=== PATIENT | male | born 1965 | race Caucasian/White ===

== ENCOUNTER → 2020-11-05 11:45 | Outpatient (BNVA) | payer MEDICARE, MEDICAID, SELFPAY | PROVIDERS: Family Provider Nurse Practitioner Family; PCP Nurse Practitioner Family; Visit Provider Nurse Practitioner Family | DX: M32.9 Systemic lupus erythematosus, unspecified (principal); M79.7 Fibromyalgia; Z79.899 Other long term (current) drug therapy | CPT/HCPCS: 80053; 81003; 85025; 85651; 86140; 88184; 88185 ==

== ENCOUNTER 2020-11-12 13:36 | Outpatient (CLI) | payer MEDICARE, MEDICAID, SELFPAY ==
[2020-11-12 14:38] LABS: Basophils # 0.1 10^3/uL (0.0-0.1); Basophils % 0.5 %; Eosinophils # 0.3 10^3/uL (0.0-0.8); Eosinophils % 1.3 %; Hematocrit 32.7 % (42.0-52.0); Hemoglobin 10.6 g/dL (11.7-16.6); Lymphocytes # 1.7 10^3/uL (0.8-4.8); Mean Corpuscular HGB Conc 32.4 g/dL (30.0-36.0); Mean Corpuscular Hemoglobin 29.4 pg (28.0-34.0); Mean Corpuscular Volume 90.8 fl (80-94); Mean Platelet Volume 8.6 fL (7.4-10.4); Monocytes # 2.2 10^3/uL (0.2-0.9); Monocytes % 10.2 %; Neutrophils # 16.47 10^3/uL (1.8-7.7); Neutrophils % 77.1 %; Nucleated Red Blood Cells % 0.1 %; Platelet Count 646 10^3/cmm (130-400); Red Cell Distribution Width 17.1 % (12.1-15.1); White Blood Count 21.3 10^3/uL (4.0-10.0)
--- NOTE | 2020-11-12 16:15 | ONC CON_ITS ---
Dr. Ingram New Patient Note Patient: Arelis Hardin Unit #: [id number]: 1965 Dicatated By: Erin Ingram M.D.Date of Visit: Nov 12, 2020 Onc MED New Patient/Consult Referring Physician: Keith Hays NP History of Present Illness: Mr. Arelis Hardin, is a 54-year-old gentleman with a history of fibromyalgia, lupus/connective tissue disorder, COPD, chronic smoking was recently evaluated by his primary care physician and lab work-up done on November 13, 2020 showed white blood count 16.3 hemoglobin 10.9 g hematocrit 34.2 platelets 769,000 MCV 89.1, CMP within normal limit except creatinine 1.3, C-reactive protein 7.2, normal being less than 4.9 sed rate 56 normal being less than 10 mm/h and repeat CBC done on November 08, 2020 showed white blood count 18.2, hemoglobin 11.5 g hematocrit 36.6 platelets 823,000 with MCV 92.4, with a left shift., Patient was referred to hematology clinic for evaluation, patient is on prednisone 10 mg p.o. daily for the last 2 months for connective tissue disorder/fibromyalgia causing generalized muscle aches. As per patient in the past he has taken prednisone off and on. Patient said recently he recovered from pneumonia he was treated with antibiotics. Patient smoke about 2 packs a day, Denies alcohol use. His past medical history also significant for COPD, type 2 diabetes mellitus, history of bacterial sinusitis. Patient denies any fever chills but off and on drenching night sweats over the period of 1 month, no recurrent fever, 5 pound weight loss in the last couple of months due to poor appetite. Denies any peripheral lymphadenopathy denies any abdominal fullness. Denies any melena or hematochezia denies any hemoptysis or hematemesis denies any jaundice, denies any dysuria or hematuria, denies any nosebleed or gum bleed. As per patient last colonoscopy was done more than 8 years ago, never had EGD done. Past Medical History: Mr. Carpenter medical history consists of chronic obstructive pulmonary disease, fibromyalgia, heart disease, systemic lupus erythematosus, and type II diabetes. Past Surgical History: Mr. Carpenter surgical/procedural history consists of angioplasty with stent placement, cholecystectomy, and hernia repair. Medications: Gabapentin 1 Tablet (of 600 mg) Oral t.i.d., Hydroxychloroquine Sulfate 1 Tablet (of 200 mg) Oral daily, Lisinopril 1 Tablet (of 20 mg) Oral daily, Metoprolol Succinate ER 1 Tablet (of 25 mg) Tablet SR 24 HR Oral daily, predniSONE 1 Tablet (of 20 mg) Oral daily, Ticagrelor 1 Tablet (of 90 mg) Oral b.i.d. Allergies: Sulfa Antibiotics Social History: Mr. Hardin is . He is a daily smoker. He is a former drinker. Family History: There is no documented family history. Review Of Symptoms: Review of Systems is not available for this patient. Vital Signs: Most recent vitals are not available for this patient. Performance Status: 0 - Fully active, able to carry on all predisease activities without restrictions. (ECOG) Physical Examination: ENMT - No mouth sores, no thrush, no jaundice, No cervical lymphadenopathy, Respiratory - Poor air entry otherwise clear, Cardiovascular - Regular rate and rhythm of heart, Abdomen - Soft, bowel sounds present, Extremities - No visible edema. Lab/Imaging: Most recent lab results are not available for this patient. Impression: Leukocytosis with a left shift, most likely due to chronic prednisone which he takes for lupus/connective tissue disorder, in addition to that chronic heavy smoking, chronic inflammatory disorder, his sed rate and CRP is elevated on recent labs, subclinical infection or myeloproliferative disorder like CML, CMML cannot be ruled out. Thrombocytosis, essential versus reactive, most likely reactive probably secondary to chronic inflammatory process e.g. patient has elevated sed rate and CRP, or chronic blood loss, patient is anemic, primary bone marrow disorder like essential thrombocytosis or myeloproliferative disorder but less likely Anemia, etiology probably multifactorial including anemia of chronic disease/connective tissue disorder or combined iron/B12 deficiency or primary bone marrow disorder like MDS but less likely Lupus/connective tissue disorder, on prednisone 10 mg p.o. daily COPD/chronic smoking smoke about 2 packs a day Hypertension Type 2 diabetes mellitus Coronary artery disease status post angioplasty with stent done in 2014 Plan: Discussed with patient regarding his labs from today shows white blood count 21.3, with a left shift, hemoglobin 10.6 hematocrit 32.7, MCV 89, platelets 646,000 compared to 823,000 on November 08, 2020 Clinically, patient is doing reasonably well with chronic musculoskeletal pain and discomfort his lab work-up shows persistent leukocytosis with left shift, etiology probably multifactorial including chronic prednisone use and chronic smoking, chronic inflammation, underlying myeloproliferative disorder cannot be ruled out so we will consider FISH for BCR ABL, and whole blood flow cytometry As far as thrombocytosis concerned, again etiology could be multifactorial e.g. as a acute phase reactant, patient has elevated CRP/sed rate on could be due to underlying mild of proliferative disorder like a session thrombocytosis, will consider JAK2 mutation, ERENDIRA R/MPL mutation testing. And also obtain abdominal sonogram check spleen size. As far as anemia is concerned, probably multifactorial, will obtain iron studies, B12 folic acid, reticulocyte count and also check TSH, patient return to clinic in 2 weeks with CBC, will review above-mentioned work-up if it remained inconclusive and patient has persistent leukocytosis/thrombocytosis or anemia, will consider bone marrow evaluation. Patient was advised to quit smoking and was offered any assistance he may need Signed By: Erin Ingram M.D. <<Signature on File>>
[2020-11-12 17:12] LABS: Reticulocyte % 2.3 % (0.5-2.0)
[2020-11-12 17:57] LABS: Alanine Aminotransferase 26 U/L (0-41); Albumin Level 3.9 g/dL (3.5-5.2); Alkaline Phosphatase 55 IU/L (40-130); Anion Gap 20.6 (5-19); Aspartate Amino Transferase 17 U/L (0-40); Blood Urea Nitrogen 45 mg/dL (6-20); Calcium 9.7 mg/dL (8.5-10.5); Carbon Dioxide 19 mmol/L (22-29); Chloride 100 mmol/L (98-107); Ferritin 156 ng/mL (30-400); Globulin 2.7 g/dL (1.3-4.6); Glomerular Filtration Rate 45.4 mL/min (90-130); Glucose 87 mg/dL (65-115); Iron 35 ug/dL (59-158); Osmolality Calculated 289 mOsm/kg (285-295); Percent Saturation 11.1 % (20-50); Potassium 5.6 mmol/L (3.5-5.1); Sodium 134 mmol/L (136-145); Thyroid Stimulating Hormone 1.19 uIU/mL (0.27-4.20); Total Bilirubin 0.2 mg/dL (0.15-1.2); Total Iron Binding Capacity 315 mcg/dl; Total Protein 6.6 g/dL (6.6-8.7); Unsaturated Iron Binding 280 ug/dL (112-347); Vitamin B12 535 pg/mL (232-1245)
[2020-11-12 18:40] LABS: Folate Level > 20.0 ng/mL (4.5-32.2)
[2020-11-22 09:23] LABS: CALR Exon 9 Mutation NOT DETECTED (NOT DETECTED); CSF3R Exon 14/17 Mutation NOT DETECTED (NOT DETECTED); JAK2 Exon 12 Mutation NOT DETECTED (NOT DETECTED); JAK2 V617 Block Specimen ID NG; JAK2 V617 Clinical Indication NG; JAK2 V617 Mutation NOT DETECTED (NOT DETECTED); JAK2 V617 Specimen Source NG; MPL Exon 12 Mutation NOT DETECTED (NOT DETECTED)
[2020-12-03 13:14] LABS: Miscellaneous Test See Scanned Lab Rpt
[2020-12-12 09:58] LABS: Miscellaneous Test See Scanned Lab Rpt
== END 2020-11-12 13:37 | disposition home or self-care (01) ==
LOC: ONCMED 13:49
PROVIDERS: PCP Nurse Practitioner Family; Visit Provider Internal Medicine Hematology & Oncology
DX: D72.829 Elevated white blood cell count, unspecified (principal); D47.3 Essential (hemorrhagic) thrombocythemia; D64.9 Anemia, unspecified; M32.9 Systemic lupus erythematosus, unspecified; J44.9 Chronic obstructive pulmonary disease, unspecified; F17.210 Nicotine dependence, cigarettes, uncomplicated; I10 Essential (primary) hypertension; E11.9 Type 2 diabetes mellitus without complications; I25.10 Atherosclerotic heart disease of native coronary artery without angina pectoris; Z95.5 Presence of coronary angioplasty implant and graft; E61.1 Iron deficiency; Z86.010 Personal history of colon polyps; Z79.899 Other long term (current) drug therapy
CPT/HCPCS: 36415; 73090; 80053; 80500; 81219; 81270; 82607; 82728; 82746; 83540; 83550; 84443; 85025; 85045; 85651; 86140; 88184; 88185; 88271; 88275; 88374; 99205

== ENCOUNTER → 2020-11-13 16:14 | Outpatient (BNVA) | payer MEDICARE, MEDICAID, SELFPAY | PROVIDERS: PCP Nurse Practitioner Family; Visit Provider Family Medicine | DX: J44.9 Chronic obstructive pulmonary disease, unspecified (principal); M79.7 Fibromyalgia; J01.90 Acute sinusitis, unspecified; B96.89 Other specified bacterial agents as the cause of diseases classified elsewhere; J22 Unspecified acute lower respiratory infection; M32.9 Systemic lupus erythematosus, unspecified; I51.9 Heart disease, unspecified; Z95.820 Peripheral vascular angioplasty status with implants and grafts; E11.9 Type 2 diabetes mellitus without complications; R91.1 Solitary pulmonary nodule; I25.10 Atherosclerotic heart disease of native coronary artery without angina pectoris | CPT/HCPCS: 71046 ==

== ENCOUNTER 2020-11-20 13:46 | Outpatient (CLI) | payer MEDICARE, MEDICAID, SELFPAY ==
--- NOTE | 2020-11-20 14:15 | CT_ITS ---
WS: [id number] CT scan of the chest without IV contrast, additional two-dimensional coronal and sagittal reconstruct ion was performed. 11/20/2020 Clinical Data: R93.89 - Abnormal findings on diagnostic imaging of other... Comparison: CTA chest, 03/03/2016. DLP: 870.[address] scans at [facility] use at least one of these dose optimization techniques: automated e xposure control; mA and/or kV adjustment per patient size (includes targeted exams where dose is matc hed to clinical indication); or iterative reconstruction. Findings: There is cavitary change bilaterally with increase in parenchymal density throughout the upper lobes. There is a diffuse groundglass appearance of the lungs throughout the upper, middle and lower lobes. No nodules, masses or effusions are seen. No definite pneumonia is noted. The heart size is normal wi th no pericardial effusion. Coronary artery calcification is present. The pulmonary arterial system a nd thoracic aorta demonstrate no abnormalities or dilatations. There is no axillary or significant me diastinal adenopathy. The upper abdomen demonstrates polycystic disease of the kidneys with probable polycystic disease of the liver. There are clips in the gallbladder fossa from a cholecystectomy. CT/CT chest wo con [id number] Impression: 1. Marked cavitary change and increase in parenchymal density throughout the up per lobes which may represent chronic inflammatory change and worsening chronic obstructive pulmonary disease. 2. Diffuse groundglass appearance throughout the lung parenchyma parenchyma whi ch may represent chronic pulmonary infection. 3. Polycystic disease of the kidneys and liver.
== END 2020-11-20 13:47 | disposition home or self-care (01) ==
PROVIDERS: PCP Nurse Practitioner Family; Visit Provider Nurse Practitioner Family
DX: R93.89 Abnormal findings on diagnostic imaging of other specified body structures (principal); Q61.3 Polycystic kidney, unspecified; Q44.6 Cystic disease of liver; J44.9 Chronic obstructive pulmonary disease, unspecified
CPT/HCPCS: 71250

== ENCOUNTER 2020-11-21 07:15 | Outpatient (CLI) | payer MEDICARE, MEDICAID, SELFPAY ==
--- NOTE | 2020-11-21 07:21 | US_ITS ---
WS: [id number] Complete ABDOMINAL ULTRASOUND HISTORY: LEUKOCYTOSIS; SPECIAL ATTENTION TO SPLEEN COMPARISON: 04/19/2009. Liver: 18.0 cm in length. Liver is moderately enlarged. No mass or bile duct dilatation. Surface of t he liver is slightly irregular suggesting early changes of cirrhosis may be present. There is a small cyst in the central LEFT lobe measuring 2.0 x 1.6 x 1.3 cm. Gallbladder: Prior cholecystectomy. Pancreas: Tail is obscured. Body and head are normal. CBD: 0.8 cm. Right kidney: 18.1 cm x 9.9 cm x 7.7 cm. Enlarged RIGHT kidney with multiple cysts. Patient has know n polycystic kidney disease. No solid masses or obstruction identified. Poor differentiation of the c ortical medullary junction. Left kidney: 17.7 cm x 7.9 cm x 7.8 cm. Enlarged kidney with multiple cysts. No solid mass or obstru ction. Poor cortical medullary differentiation. Spleen: Spleen is normal size measuring 10.7 cm in length. Abdominal aorta and IVC are within normal limits. No ascites. US/US abdomen complete* [id number] IMPRESSION: 1. Status post cholecystectomy. 2. Polycystic kidney disease. 3. Normal size spleen. 4. LEFT lobe hepatic cyst.
== END 2020-11-21 07:16 | disposition home or self-care (01) ==
LOC: RAD 07:17
PROVIDERS: PCP Nurse Practitioner Family; Visit Provider Internal Medicine Hematology & Oncology
DX: D72.829 Elevated white blood cell count, unspecified (principal); Z90.49 Acquired absence of other specified parts of digestive tract; Q61.3 Polycystic kidney, unspecified; K76.89 Other specified diseases of liver
CPT/HCPCS: 76700

== ENCOUNTER 2020-11-22 10:37 | Outpatient (CLI) | payer MEDICARE, MEDICAID, SELFPAY ==
[2020-11-22 11:45] LABS: Creatinine Urine, Random 95 mg/dL (39-259); Microalbumin Random Urine 13 ug/dL (0-20)
[2020-11-22 11:46] LABS: Microalbum Creatinine Ratio Ur 137 mg/dL (0-20)
[2020-11-22 11:51] LABS: Alanine Aminotransferase 24 U/L (0-41); Albumin Level 4.1 g/dL (3.5-5.2); Alkaline Phosphatase 62 IU/L (40-130); Anion Gap 16.7 (5-19); Aspartate Amino Transferase 20 U/L (0-40); Blood Urea Nitrogen 30 mg/dL (6-20); Carbon Dioxide 23 mmol/L (22-29); Chloride 102 mmol/L (98-107); Globulin 2.9 g/dL (1.3-4.6); Glomerular Filtration Rate 45.4 mL/min (90-130); Glucose 62 mg/dL (65-115); Osmolality Calculated 288 mOsm/kg (285-295); Potassium 4.7 mmol/L (3.5-5.1); Sodium 137 mmol/L (136-145); Total Bilirubin 0.2 mg/dL (0.15-1.2)
[2020-11-26 13:38] LABS: Quantiferon Mitogen 8.28 IU/mL; Quantiferon Nil 0.03 IU/mL; Quantiferon TB Gold NEGATIVE (NEGATIVE)
== END 2020-11-22 10:38 | disposition home or self-care (01) ==
PROVIDERS: PCP Nurse Practitioner Family; Visit Provider Nurse Practitioner Family
DX: R91.8 Other nonspecific abnormal finding of lung field (principal); R94.4 Abnormal results of kidney function studies
CPT/HCPCS: 36415; 80053; 82044; 86480

== ENCOUNTER 2020-11-22 12:19 | Outpatient (CLI) | payer MEDICARE, MEDICAID, SELFPAY ==
--- NOTE | 2020-11-22 16:53 | ONC FU_ITS ---
Dr. Ingram follow up note Patient: Arelis Hardin Unit #: [id number]: 1965 Dicatated By: Erin Ingram M.D.Date of Visit:Nov 22, 2020 Onc Med Follow-up/Prog Note History of Present Illness: Mr. Arelis Hardin, is a 54-year-old gentleman with a history of fibromyalgia, lupus/connective tissue disorder, COPD, chronic smoking was recently evaluated by his primary care physician and lab work-up done on November 13, 2020 showed white blood count 16.3 hemoglobin 10.9 g hematocrit 34.2 platelets 769,000 MCV 89.1, CMP within normal limit except creatinine 1.3, C-reactive protein 7.2, normal being less than 4.9 sed rate 56 normal being less than 10 mm/h and repeat CBC done on November 08, 2020 showed white blood count 18.2, hemoglobin 11.5 g hematocrit 36.6 platelets 823,000 with MCV 92.4, with a left shift., Patient was referred to hematology clinic for evaluation, patient is on prednisone 10 mg p.o. daily for the last 2 months for connective tissue disorder/fibromyalgia causing generalized muscle aches. As per patient in the past he has taken prednisone off and on. Patient said recently he recovered from pneumonia he was treated with antibiotics. Patient smoke about 2 packs a day, Denies alcohol use. His past medical history also significant for COPD, type 2 diabetes mellitus, history of bacterial sinusitis. Patient denies any fever chills but off and on drenching night sweats over the period of 1 month, no recurrent fever, 5 pound weight loss in the last couple of months due to poor appetite. Denies any peripheral lymphadenopathy denies any abdominal fullness. Denies any melena or hematochezia denies any hemoptysis or hematemesis denies any jaundice, denies any dysuria or hematuria, denies any nosebleed or gum bleed. As per patient last colonoscopy was done more than 8 years ago, never had EGD done. Reticulocyte count 2.3% iron saturation 11.1% iron 35, both are low, TIBC 315, ferritin 156 B12 535, creatinine 1.6, TSH 1.19, molecular studies for myeloproliferative disorders including CA LR exon 9, JAK2 mutation, exon 12 mutation, exon 10 mutation, CSF 3R EX 14/,Done on November 12, 2020 came back negative Also BCR/ABL not detected, whole blood flow cytometry showed no aberrant myeloid or lymphoid population detected Abdominal sonogram Done on November 21, 2020 shows spleen is normal size Came for follow-up, denies any specific complaints, no fever chills, no nausea or vomiting, no diarrhea or constipation, no melena or hematochezia, no hemoptysis or hematemesis, no abdominal pain or fullness, no peripheral lymphadenopathy, no night sweats, on prednisone 10 mg p.o. daily Medications: Gabapentin 1 Tablet (of 600 mg) Oral t.i.d., Hydroxychloroquine Sulfate 1 Tablet (of 200 mg) Oral daily, Lisinopril 1 Tablet (of 20 mg) Oral daily, Metoprolol Succinate ER 1 Tablet (of 25 mg) Tablet SR 24 HR Oral daily, predniSONE 1 Tablet (of 10 mg) Oral daily, Ticagrelor 1 Tablet (of 90 mg) Oral b.i.d. Allergies: Sulfa Antibiotics Review of Systems: Review of Systems is not available for this patient. Vital Signs: Performed on Nov 22, 2020 12:35 Height - 72 in Weight - 172 lbs (HIGH) BSA - 2.00 sq.m BMI - 23.33 Temperature - 99.8 F (HIGH) Pulse - 87 /min Respiration - 18 /min BP - 124/76 mm(hg) O2 Sat - 98 % Pain - 7 Fatigue - 10 Performance Status: 0 - Fully active, able to carry on all predisease activities without restrictions. (ECOG) Physical Examination: ENMT - No mouth sores, no thrush, no jaundice, Respiratory - Lungs are clear to auscultation, Cardiovascular - Regular rate and rhythm of heart, Abdomen - Soft, bowel sounds present, Extremities - No visible edema. Lab/Imaging: Most recent lab results are not available for this patient. Impression: Leukocytosis with a left shift, most likely due to chronic prednisone which he takes for lupus/connective tissue disorder, in addition to that chronic heavy smoking, chronic inflammatory disorder, his sed rate and CRP is elevated on recent labs, subclinical infection or myeloproliferative disorder like CML, CMML Unlikely as myeloproliferative work-up came back negative Thrombocytosis, essential versus reactive, most likely reactive probably secondary to chronic inflammatory process e.g. patient has elevated sed rate and CRP, or chronic blood loss, patient is anemic, primary bone marrow disorder like essential thrombocytosis or myeloproliferative disorder but less likely molecular studies for myeloproliferative disorders including CA LR exon 9, JAK2 mutation, exon 12 mutation, exon 10 mutation, CSF 3R EX ,Done on November 12, 2020 came back negative Also BCR/ABL not detected, whole blood flow cytometry showed no aberrant myeloid or lymphoid population detected Abdominal sonogram Done on November 21, 2020 shows spleen is normal size Anemia, etiology probably multifactorial including anemia of chronic disease/connective tissue disorder or combined iron/B12 deficiency or primary bone marrow disorder like MDS but less likely Reticulocyte count 2.3% iron saturation 11.1% iron 35, both are low, TIBC 315, ferritin 156 B12 535, creatinine 1.6, TSH 1.19, Lupus/connective tissue disorder, on prednisone 10 mg p.o. daily COPD/chronic smoking smoke about 2 packs a day Hypertension Type 2 diabetes mellitus Coronary artery disease status post angioplasty with stent done in 2014 Plan: Discussed with patient regarding his labs white blood count 21.3, hemoglobin 10.6 g hematocrit 32.7 platelets 646,000 CMP within normal limit except creatinine 1.6 potassium 5.6, iron 11.1% ferritin 156, iron 35, TIBC 315, B12 535, TSH 1.19 and work-up for myeloproliferative disorder came back negative, abdominal sonogram shows no splenomegaly Clinically, patient doing well with no new signs symptoms, his follow-up labs shows persistent leukocytosis most likely reactive probably due to chronic steroid use and chronic inflammation as extensive work-up done for myeloproliferative disorder including JAK2 mutation, leukemia/lymphoma panel, MPL, ERENDIRA R, mutation all came back negative whole blood flow cytometry showed no abnormal cell population, CML panel came back negative. So no further work-up for chronic leukocytosis which is most likely due to chronic steroid use as well as chronic inflammation so we will continue to monitor and if progressive, may repeat myeloproliferative panel as early changes due to myeloproliferative disorder may not be detected this time. As far as thrombocytosis concerned probably multifactorial including chronic inflammation and now with iron deficiency, will consider oral iron 2 tablets p.o. daily and also patient has history of precancerous colon polyp removal about 8 years ago, so we will refer him to gastroenterology for GI evaluation to rule out GI pathology. Patient will return to clinic in 1 month with CBC and iron studies, if there is no improvement may consider parenteral iron. Signed By: Erin Ingram M.D. <<Signature on File>>
== END 2020-11-22 12:20 | disposition home or self-care (01) ==
PROVIDERS: PCP Nurse Practitioner Family; Visit Provider Internal Medicine Hematology & Oncology
DX: D72.829 Elevated white blood cell count, unspecified (principal); D75.839 Thrombocytosis, unspecified; D64.9 Anemia, unspecified; M32.9 Systemic lupus erythematosus, unspecified; J44.9 Chronic obstructive pulmonary disease, unspecified; F17.210 Nicotine dependence, cigarettes, uncomplicated; I10 Essential (primary) hypertension; E11.9 Type 2 diabetes mellitus without complications; I25.10 Atherosclerotic heart disease of native coronary artery without angina pectoris; Z95.5 Presence of coronary angioplasty implant and graft; E61.1 Iron deficiency; Z86.010 Personal history of colon polyps; Z79.899 Other long term (current) drug therapy
CPT/HCPCS: 99214

== ENCOUNTER 2020-11-28 16:17 | Outpatient (CLI) | payer MEDICARE, MEDICAID, SELFPAY ==
--- NOTE | 2020-11-28 16:30 | USCV_ITS ---
Arelis Hardin Age: 54 Gender: M : 1965 Exam Date: 11/28/2020 16:22 Ordering Phys: Sarah Kay MD ([email or web address]) Technologist: Exam Location: [facility] [place] Indication: CHEST PAIN BP: 120 / 70 HR: 82 Rhythm: Sinus Technical Quality: Good MEASUREMENTS (Male / Female) Normal Values 2D ECHO LV Diastolic Diameter PLAX 4.9 cm 4.2 - 5.9 / 3.9 - 5.3 cm LV Systolic Diameter PLAX 2.6 cm IVS Diastolic Thickness 0.9 cm 0.6 - 1.0 / 0.6 - 0.9 cm IVS Systolic Thickness 1.4 cm LVPW Diastolic Thickness 1.1 cm 0.6 - 1.0 / 0.6 - 0.9 cm LVPW Systolic Thickness 1.1 cm LVOT Diameter 2.0 cm LV Ejection Fraction 2D Teich 74.0 % LV Ejection Fraction MOD 2C 64.7 % LV Ejection Fraction 2C AL 64.0 % LA Diameter 3.3 cm LA Width 3.6 cm LA Height 5.1 cm RA Width 3.2 cm RA Height 4.6 cm Aorta at Sinotubular Diameter 2.8 cm M-MODE LV Diastolic Diameter MM 6.1 cm 4.2 - 5.9 / 3.9 - 5.3 cm LV Systolic Diameter MM 4.4 cm LV Ejection Fraction MM Teich 53.4 % IVS Diastolic Thickness MM 1.0 cm 0.6 - 1.0 / 0.6 - 0.9 cm IVS Systolic Thickness MM 1.3 cm LVPW Diastolic Thickness MM 1.1 cm 0.6 - 1.0 / 0.6 - 0.9 cm LVPW Systolic Thickness MM 2.0 cm RV Diastolic Diameter MM 0.8 cm MV E Point Septal Separation 0.9 cm DOPPLER AV Peak Velocity 145.0 cm/s LVOT Peak Velocity 103.0 cm/s AV Area Cont Eq vti 2.5 cm squared AV Area Cont Eq pk 2.3 cm squared MV Area PHT 5.0 cm squared Mitral E to A Ratio 1.1 MV E' Velocity 53.0 cm/s Mitral E to MV E' Ratio 9.3 Mitral E to LV E' Lateral Ratio 8.0 Mitral E to LV E' Septal Ratio 11.4 TR Peak Velocity 143.0 cm/s TR Peak Gradient 8.2 mmHg TV Peak E Velocity 88.0 cm/s Right Atrial Pressure 3.0 mmHg Pulmonary Artery Systolic Pressu 11.2 mmHg FINDINGS Left Ventricle Mild hypokinesia of the apical inferolateral wall segment.. Lead to hypokinesia of the septum. Overall left ventricular ejection fraction around 50 to 55% Right Ventricle The right ventricle is normal in size and function. Right Atrium The right atrium is normal in size. Left Atrium The left atrium is normal in size. Mitral Valve Mild mitral valve regurgitation. Aortic Valve No gross abnormalities noted Tricuspid Valve No gross abnormalities noted Pulmonic Valve Pulmonic valve not well visualized. Pericardium Normal pericardium without effusion. Aorta Normal ascending aorta dimension. CONCLUSIONS 1. Normal LV size with borderline low ejection fraction 50 to 55%. 2. Wall motion abnormalities as mentioned above. 3. Mild mitral valve regurgitation. 4. No intracardiac masses 5. No pericardial effusion Compared to the study from 01/01/2015, the wall motion of abnormality is noted in a different artery territory at this time. Dr Sarah Kay MD FAC (Electronically Signed) Final Date: 28 November 2020 17:34 S
== END 2020-11-28 16:18 | disposition home or self-care (01) ==
PROVIDERS: PCP Nurse Practitioner Family; Visit Provider Internal Medicine Cardiovascular Disease
DX: R06.00 Dyspnea, unspecified (principal); I25.118 Atherosclerotic heart disease of native coronary artery with other forms of angina pectoris; I34.0 Nonrheumatic mitral (valve) insufficiency; J18.9 Pneumonia, unspecified organism; J98.4 Other disorders of lung; I31.9 Disease of pericardium, unspecified
CPT/HCPCS: 80048; 83880; 84484; 85025; 93306

== ENCOUNTER 2020-11-29 12:52 | Outpatient (CLI) | payer MEDICARE, MEDICAID, SELFPAY ==
[2020-11-29 13:58] LABS: Lactate Dehydrogenase 169 U/L (135-225)
[2020-12-03 11:57] LABS: Quantiferon Mitogen 0.29 IU/mL; Quantiferon Nil 0.01 IU/mL; Quantiferon TB Gold INDETERMINATE (NEGATIVE)
== END 2020-11-29 12:53 | disposition home or self-care (01) ==
LOC: LAB 12:59
PROVIDERS: PCP Nurse Practitioner Family; Visit Provider Internal Medicine Critical Care Medicine
DX: J98.4 Other disorders of lung (principal)
CPT/HCPCS: 36415; 83615; 86480; 86698

== ENCOUNTER → 2020-12-10 09:58 | Outpatient (BNVA) | payer MEDICARE, MEDICAID, SELFPAY | PROVIDERS: PCP Nurse Practitioner Family; Visit Provider Internal Medicine Critical Care Medicine | DX: Z20.822 Contact with and (suspected) exposure to COVID-19 (principal); J18.9 Pneumonia, unspecified organism | CPT/HCPCS: 86635; 87635 ==

== ENCOUNTER 2020-12-13 11:21 | Outpatient (CLI) | payer MEDICARE, MEDICAID, SELFPAY ==
--- NOTE | 2020-12-13 13:04 | PFTS_ITS ---
Date of Study:12/13/20 Date of Dictation: 12/14/2020 MECHANICS: Postbronchodilator forced vital capacity (FVC) is reduced. Postbronchodilator forced expiratory volume in one second (FEV1) is severely reduced 36%. FEV1/FVC is reduced. There is no significant response to bronchodilators. FLOW VOLUME LOOP: Sloping of expiratory limb suggestive of airway obstruction . LUNG VOLUMES: Total lung capacity (TLC) is normal. Residual volume (RV) is normal. DIFFUSING CAPACITY FOR CARBON MONOXIDE: Moderately reduced. . INTERPRETATION: The pulmonary function tests are consistent with severe obstructive ventilatory disease with no significant bronchodilator response. Lung volumes are normal. There is moderate gas moderate transfer defect. Clinical correlation recommended. [facility]
== END 2020-12-13 11:22 | disposition home or self-care (01) ==
LOC: RT 11:25
PROVIDERS: PCP Nurse Practitioner Family; Visit Provider Internal Medicine Critical Care Medicine
DX: J44.9 Chronic obstructive pulmonary disease, unspecified (principal)
CPT/HCPCS: 94060; 94726; 94729

== ENCOUNTER → 2020-12-17 11:53 | Outpatient (BNVA) | payer MEDICARE, MEDICAID, SELFPAY | PROVIDERS: PCP Nurse Practitioner Family; Referring Provider Internal Medicine Cardiovascular Disease; Visit Provider Internal Medicine Cardiovascular Disease | DX: Z01.812 Encounter for preprocedural laboratory examination (principal); E87.1 Hypo-osmolality and hyponatremia; Z20.822 Contact with and (suspected) exposure to COVID-19; I25.10 Atherosclerotic heart disease of native coronary artery without angina pectoris; R79.89 Other specified abnormal findings of blood chemistry | CPT/HCPCS: 80048; 85025; 85610; 86850; 86900; 87635 ==

== ENCOUNTER 2020-12-20 09:59 | Observation (INO) | payer MEDICARE, MEDICAID, SELFPAY ==
[2020-12-20] VITALS (29 sets, daily range): BP systolic 93–160; BP diastolic 55–99; PULSE 76–122; RESP 7–28; TEMP 37.2; O2SAT 89–99; BMI 23.8; BMI 24.0
--- NOTE | 2020-12-20 07:30 | XACV_ITS ---
Ht: 183 cm Wt: 80 kg BSA: 2.02 m2 Gender: Male : 1965 Any Known Allergies: Other Exam Priority: Routine Procedure(s): Procedure Description: Diagnostic procedure Procedure Description: Left Heart Catheterization Procedure Description: Coronary Angiography Rahul HOWELL; Diagnostic Cath Status: Elective Diagnostic Findings * Left main is a medium caliber vessel with no significant stenotic lesions. * The left hand is any arteries a medium caliber vessel which appears to be tortuous proximally. Mild diffuse intimal irregularities were noted in the vessel. Moderate calcification was noted in the proximal segment of the artery. The first diagonal branch was found to have around 50% ostial narrowing. * The circumflex artery is a small to moderate medium caliber nondominant vessel which appears to give off two obtuse marginal branches. The first obtuse marginal branch was found to have around 50% ostial narrowing. At the takeoff of this vessel, the circumflex proper was found to have around 50% diffuse narrowing. No other significant stenotic lesions were noted.. * The right coronary artery is a medium caliber dominant vessel. The proximal segment of the artery was found to have a long stented area which was widely patent. The mid segment of the artery was found to have mild diffuse intimal irregularities. No significant stenotic lesions were noted.. Conclusions 1. 55-year-old white male with a history of coronary disease, previous myocardial infarction, presenting with increasing episodes of chest pain, suggestive of unstable angina. Echocardiogram revealed new wall motion normalities in the distribution of the left circumflex artery. In view of the patient's presenting symptoms and the history, in order to further evaluate his coronary status, a cardiac catheterization was recommended. Patient is known to have high blood pressure, dyslipidemia, type 2 diabetes and polycystic kidney disease. 2. Patient underwent left heart catheterization with left and right coronary angiogram today. The coronary angiogram revealed patent stented segment of the right coronary artery. Moderate disease in the mid circumflex artery including the ostium of the first obtuse marginal branch. Mild diffuse disease in the other vessels. Normal LVEDP. Recommendations * Continue current medical management and risk factor modification. Diagnostic RX Recommendation: medical therapy and/or counseling LV EDP: 5 mmHg Left Ventriculography Findings: * LV gram was not performed because of the chronic kidney disease. Pressures Phase:Rest AO : 103 / 62 ( 83 ) @ 7:12:00 AM 108 / 58 ( 79 ) @ 7:23:00 AM 108 / 58 ( 79 ) @ 7:23:00 AM LV : 107 / -10 / 5 @ 7:22:00 AM 109 / -10 / 5 @ 7:23:00 AM Valves Phase:DefaultPhase AV : 0.0 @ 9:58:44 AM AV Mean Gradient: 0.0 @ 9:58:44 AM 0.0 @ 9:58:44 AM Clinical Evaluation EBL: 5mL-10mL Procedural Details Procedure Consent Obtained. Current Diagnosis : Chest Pain. Pre-Procedure Time Out. Identified patient by full name and date of as verbalized by the patient/guarantor. Does the consent match the physician's order: Yes. Accurate & Complete Informed Consent: Yes. Inpatient/Outpatient History & Physical on Chart: Yes. If H&P is completed, is and addenduem needed: No; If yes, is the addendum complete: N/A. Visualize and Verify Site with Patient/Guarantor: N/A. Relevant Radiology Images available: Yes. Pre-op teaching completed and patient verbalized understanding. The risks, benefits, and alternatives of sedation and/or procedure were discussed by physician. The patient agrees to continue. Procedure started. [facility] Clinical Fraility Score: 3: Managing Well. Air Conditioning Technician Indications: Worsening Angina. Chest Pain Symptom Assessment: Typical Angina Symptoms. Current diagnosis: Chest Pain. PERRLA. Strong, equal hand it project lead bilaterally. Lungs clear x 5 lobes. IV Site on Arrival: 20 gauge in the right anticubital. IV Fluids: 0.9% NaCl at KVO. 0 mL infused prior to supervisor laboratory. Pre Procedural Pulses: bilateral dorsalis pedis was 2+. Pre Procedural Pulses: bilateral posterior tibial was 2+. Pre Procedural Pulses: right radial was 2+. Oxygen started at 2liters/min via nasal canula. bilateral groins was prepped with chloroprep then draped in the usual sterile fashion. Physician notified. Baseline sample Acquired. HR: 94 BPM. Physician arrived. Physician scrubbed in. Immediate Pre-Procedure Time Out. Correct Patient: Yes; Correct Procedure: Yes; Correct Site: Yes; Correct Patient Position: Yes; Correct Supplies: Yes; Dried Flammable Prep: Yes; Blood Products Available: N/A;. Lidocaine 1% infiltrated to the right groin. Arterial access obtained with micropuncture set. A 5 macedonian JL4 catheter in over wire. Multiple views taken of left coronary artery. Catheter removed over the standard wire. A 5 macedonian JR4 catheter in over wire. Multiple views taken of right coronary artery. Catheter removed over the exchange wire. A 5 macedonian Angled Pig catheter in over wire. EDP Sample taken: LV 107/-11,5; HR: 83 BPM; SpO2: 96%. Pullback taken: LV 109/-10,5; AO 108/58(79); Mean: 0mmHg, Peak to Peak: 0mmHg, SEP: 10sec/min; HR: 90 BPM; SpO2: 100%. Catheter removed over the exchange wire. Physician scrubbed out. Physician review of cine films. Side port of sheath attached to Normal Saline flush at KVO to maintain patency. Dr. Simental called to review films. Dr. Simental arrived. Sheath(s) sutured into position with 2-0 silk and sterile 4x4's and Op-site applied over the site. No oozing or signs and symptoms of hematoma noted. A Suture was successful obtaining hemostatsis at the Right Femoral artery insertion site. PERRLA. Strong, equal hand it project lead bilaterally. No VTE prophylaxis required. Medication's Wasted: Lidocaine 1% = 4 mL. Medication's Wasted: Other = Fentanyl 50 mg. Medication's Wasted: Heparin = 3000 units. Total IV fluids: 500 mL. Contrast type used: Visipaque 320 mgI/mL, 500 mL bottle. Complications: None. Estimated blood loss: 5mL-10mL. Procedure completed. Patient transferred by bed to ICU. Vital chart was stopped. Access Site Site: Right Femoral artery Sheath Size: 5 Fr Hemostasis Method: Suture Hemostasis Success: Successful Procedure Medications Start: 8:56 AM Stop: 8:56 AM Medication: Versed Amount: 1 mg Route: I.V. Start: 8:56 AM Stop: 8:56 AM Medication: Fentanyl Amount: 50 mcg Route: I.V. Start: 9:04 AM Stop: 9:04 AM Medication: 0.9% Saline Amount: 250 ml Route: I.V. bolus Start: 9:05 AM Stop: 9:05 AM Medication: Versed Amount: 1 mg Route: I.V. Start: 9:09 AM Stop: 9:09 AM Medication: Heparin Amount: 1500 units Route: I.V. Start: 9:23 AM Stop: 9:23 AM Medication: 0.9% Saline Amount: 250 ml Route: I.V. bolus I, the attending physician, have reviewed and verified all procedure medications. Yes, all medications given per verbal order History/Risk Factors Hypertension: Yes Dyslipidemia: Yes Peripheral Arterial Disease (PAD): No Myocardial Infarction (SD): No Obesity: No Renal Disease: No Prior Interventions PCI: Yes CABG: No Valve Surgery: No Date of PCI: 01/01/2015 Report Signatures Finalized by Dr Sarah Kay MD [facility] on 12/20/2020 05:58 PM
[2020-12-20] MEDS: diphenhydrAMINE 50 mg Capsule PO (08:24)
--- NOTE | 2020-12-20 08:56 | W.PM.OPSUD ---
Surgery/Procedure H&P Update DATE OF PROCEDURE: December 20, 2020 DATE H&P PERFORMED: 11/28/20 H&P UPDATE INFORMATION: I have reviewed H&P completed within last 30 days, I have examined patient prior to procedure, No changes to prior documentation, Changes to prior documentation as noted here and H&P to be scanned into chart PREOP DIAGNOSIS: ASHD PRIMARY INDICATION FOR PROCEDURE: Unstable angina PLANNED PROCEDURE: Operation Date: 12/20/20 08:30 Proposed Procedures p Cardiac Catheterization(Left) - Sarah Kay MD PATIENT REASSESSED PRIOR TO SEDATION, WITH NO CHANGE NOTED: Yes PHYSICAL EXAM: alert, oriented x 3, clear to auscultation bilaterally, regular rate & rhythm and operative site marked AIRWAY EVAL/ANESTHESIA PLAN: normal airway, see other exam findings, ASA II, ASA III, Monitored Anesthesia, Local Anesthesia, Risks, benefits & alternatives of sedation and/or procedure discussed and Patient agrees to continue as planned
--- NOTE | 2020-12-20 09:43 | P.HP_ITS ---
Providers/Chief Complaint Admitting Physician: KRISTA Kay Primary Care Provider: VAISHALI Alcantara Chief Complaint: [id number] [id number] History of Present Illness Arelis Hardin is a 55 year old male with a history of atherosclerotic non- ST relation myocardial infarction, status post symptoms suggestive of unstable angina. He had PCI of the right coronary artery in December 2014. He had a moderate disease in the circumflex artery at that time. Apparently he has been doing okay with no recurrence of chest pain apparently recently when he started having chest pains. His symptoms were suggestive of an accelerated angina. His echocardiogram revealed hypokinesis in the inferolateral wall region, suggestive of ischemia in the distribution of the left circumflex artery. In view of his accelerated angina and the abnormal echocardiogram findings, in order to further evaluate his coronary status, a cardiac catheterization was recommended. Patient underwent left heart catheterization with a left and right coronary angiogram today. Patient is known to have chronic kidney disease, from the polycystic kidney. His creatinine was found to be 1.6. He is admitted to hospital for IV hydration and close monitoring. He tolerated the procedure well and there were no complications. Review of Systems Narrative: CONSTITUTIONAL: No fever or chills. [] EYES: No blurring of vision or other visual disturbances lately. [] ENT: No hoarseness of voice, auditory disturbances or sore throat. [] CARDIOVASCULAR: As mentioned above. [] RESPIRATORY: Patient has been having cough and shortness of breath and is being treated for pneumonia. The respiratory symptoms been going on for the last more than a month. He has a chronically elevated white cell count. He also has a questionable history of systemic lupus erythematosus. He is being followed up by the pulmonology. GASTROINTESTINAL: No hematemesis or melena. [] GENITOURINARY: No dysuria or hematuria. [] INTEGUMENTARY: No skin rashes or history of skin cancer. [] NEURO: No transient ischemic attacks or amaurosis. [] PSYCHIATRIC: No history of psychosis or major depression. [] HEMATOLOGIC: No bleeding disorders or significant anemia. [] ENDOCRINE: No history of polyuria or polydipsia. [] MUSCULOSKELETAL: No recent joint pain or swelling. [] ALLERGY/IMMUNOLOGY: As mentioned above. [] Medications/Allergies Home Medications Medication Instructions Recorded Confirmed Last Taken Type metoprolol succinate 50 mg 50 mg PO DAILY 10/24/20 12/20/2021 History tablet,extended release 24 hr ticagrelor 90 mg tablet 90 mg PO BID 10/24/20 12/20/20 12/19/20 10:00 History albuterol sulfate 1.25 mg/3 mL 1.25 mg INHALATION Q6H PRN 30 Days 10/30/20 12/20/20 Unknown Rx solution for nebulization #90 ml gabapentin 600 mg tablet 600 mg PO TID 30 Days #90 tab 10/30/20 12/20/20 12/20/20 06:00 Rx lisinopril 40 mg tablet 20 mg PO DAILY tab 10/30/20 12/20/20 12/20/20 06:00 History atorvastatin 20 mg tablet 20 mg PO DAILY 30 Days #30 tab 11/13/20 12/20/20 12/19/20 10:00 Rx glucometer testing kit #1 ea 11/13/20 12/19/20 Unknown Rx metformin 500 mg tablet 500 mg PO DAILY 30 Days #30 tab 11/13/20 12/20/20 12/19/20 10:00 Rx nitroglycerin 0.4 mg sublingual 0.4 mg SUBLINGUAL Q5M PRN 30 Days 11/13/20 12/20/20 Unknown Rx tablet #30 tab pantoprazole 40 mg tablet,delayed 40 mg PO BID 30 Days #60 tab 11/13/20 12/20/20 Unknown Rx release sucralfate 1 gram tablet 1 g PO BID 30 Days #60 tab 11/13/20 12/20/20 Unknown Rx benzonatate 100 mg capsule 100 mg PO TID PRN 30 Days #90 cap 11/28/20 12/20/20 12/19/20 10:00 Rx hydroxychloroquine 200 mg tablet 200 mg PO BID 30 Days #60 tab 11/28/20 12/20/20 12/20/20 06:00 Rx isosorbide mononitrate 30 mg 30 mg PO DAILY 30 Days #30 tab 11/28/20 12/20/20 12/10/20 Rx tablet,extended release 24 hr tiotropium bromide 18 mcg capsule 1 cap INHALATION DAILY 30 Days #60 11/28/20 12/20/20 Unknown Rx with inhalation device inh furosemide 40 mg tablet 40 mg PO DAILY #30 tab 11/29/20 12/20/20 12/10/20 Rx potassium chloride 20 mEq 20 meq PO DAILY #30 tab 11/29/20 12/20/20 12/10/20 Rx tablet,extended release umeclidinium 62.5 mcg-vilanterol 1 inh INHALATION DAILY 30 Days #60 12/19/20 12/20/20 Unknown Rx 25 mcg/actuation powdr for ea inhalation Allergies Allergy/AdvReac Type Severity Reaction Status Date / Time venom-wasp Allergy Severe ALGY-Hives Verified 12/19/20 11:00 Sulfa (Sulfonamide Allergy Intermediate itching Verified 12/19/20 11:00 Antibiotics) PFSH Acute PFSH: Medical History Abnormal chest xray Acute bacterial sinusitis COPD (chronic obstructive pulmonary disease) Decreased GFR Elevated platelet count Fibromyalgia Ground glass opacity present on imaging of lung Heart disease Lupus Right forearm injury Type 2 diabetes mellitus Surgical History Status post angioplasty with stent Dr Kay 2014 Status post cholecystectomy Status post hernia repair Family History Father Diabetes CAD (coronary artery disease) Lung disease Family/Other Dementia Lung disease Sister Suicide Denies family history of Stroke Social History Second hand smoke exposure: No Smoking risk assessment/counseling performed?: Yes Alcohol intake: former Counseling given: No Counseling given: No Lives independently: Yes Household members: none Marital status: Current occupational status: disabled History of recent travel: No Current gender identity: Male Vitals/I&O/Wt Last Vital Signs Temp 98.9 F 12/20/20 08:07 Pulse 105 H 12/20/20 08:07 Resp 20 H 12/20/20 08:07 BP 129/80 12/20/20 08:07 Pulse Ox 98 12/20/20 08:07 Weight last 48 hrs Weight 176 lb Physical Exam Narrative: EXAM NARRATIVE: GENERAL: The patient is alert and oriented times three. Not in any acute distress. HEENT: No significant pallor, icterus or lymphadenopathy.Oral cavity: There are no mucous membrane lesions. NECK: Trachea appears to be central. No masses noted. No JVD or thyromegaly appreciated. RESPIRATORY: Chest is symmetrical. No intercostals muscle retraction or any accessory muscle activation. There is no chest wall tenderness. Breath sounds are heard bilaterally. No rales or rhonchi heard. No evidence of any consolidation. BREASTS: Deferred. HEART: The heart sounds are normal. No S3 or S4. No significant murmurs no pericardial rub ABDOMEN: No vessel pulsations or distention. No tenderness. No organomegaly appreciated. Bowel sounds are normally heard. : Deferred. RECTAL: Deferred. LYMPHATIC: No lymphadenopathy noted in the neck or groin. EXTREMITIES: No edema or cyanosis. No clubbing. Peripheral pulses are palpated but of low volume and amplitude MUSCULOSKELETAL: No acute joint deformities or swelling SKIN: There are no significant rashes or ecchymosis NEUROPSYCHIATRIC: The patient is alert and oriented x3. Appears to be in a good mood. No tremors or rigidity noted. A&P Assessment and plan (1) Atherosclerotic heart disease of [place] coronary artery with unstable angina pectoris: We will try to optimize his medical treatment. We may consider doing a myocardial perfusion imaging as an outpatient. Status: Acute (2) Type 2 diabetes mellitus: Hold off on the Metformin for the next 3 days Status: Acute Qualifiers: Diabetes mellitus complication status: with hyperglycemia Diabetes mellitus nursing home insulin use: without nursing home use Qualified Code(s): E11.65 - Type 2 diabetes mellitus with hyperglycemia (3) Cavitary lesion of lung: Patient is scheduled to have further work-up by the pulmonology service Status: Acute (4) COPD (chronic obstructive pulmonary disease): As mentioned above Status: Acute (5) Dyslipidemia: We will continue on the current medications. Status: Acute (6) Chronic kidney disease: We will do careful IV hydration today. Repeat BMP in the morning. Possible discharge home in the morning. Status: Acute Attestations Medical Necessity Statement*: Patient requires at least 1 midnight stay, for further management of his condition Coding Level of Care Code Acute Substance Abuse Therapist for Chg Fwd History Expanded Problem Focused Exam Expanded Problem Focused Medical Decision Making Moderate Complexity Diagnoses Atherosclerotic heart disease of [place] coronary artery with unstable angina pectoris I25.110 Type 2 diabetes mellitus E11.65 Diabetes mellitus complication status: with hyperglycemia Diabetes mellitus nursing home insulin use: without javascript developer use Cavitary lesion of lung J98.4 COPD (chronic obstructive pulmonary disease) J44.9 Dyslipidemia E78.5 Chronic kidney disease N18.9
[2020-12-20 10:29] LABS: Glucose Point of Care 74 mg/dL (70-110)
--- NOTE | 2020-12-20 11:14 | PC.NURSE ---
1030 Pt arrived to room at 1000. Connected to ICU monitor. AAOx4 when awake, remains lethargic d/t anesthesia. Able to answer all questions. RAC PIV with NS at 125ml/h. R fem sheath in place, connected to art line monitor. VSS. No issues noted. Denies any needs, pt teaching provided r/t keeping leg straight, HOB elevation, labs and diet. Verbalizes understanding.
--- NOTE | 2020-12-20 13:18 | PC.NURSE ---
1250 Sheath removed intact, direct manual pressure applied for 15min. No s/s of bleeding or hematoma noted to site. Gauze and clear tegaderm applied, pt education provided r/t immobility and s/s of bleeding. Will monitor.
[2020-12-20] MEDS: sodium chloride 0.9% 1,000 ML 125 ML IV (13:48)
--- NOTE | 2020-12-20 15:10 | PC.NURSE ---
Cath site to R groin checked frequently to monitor for s/s of bleeding. No issues noted, no hematoma. Will monitor.
[2020-12-20] MEDS: gabapentin 300 mg Capsule 600 MG PO ×2 (15:25→20:11)
[2020-12-20 17:31] LABS: Glucose Point of Care 128 mg/dL (70-110)
--- NOTE | 2020-12-20 17:56 | PC.NURSE ---
Shift Note Frequent safety and comfort rounds continue. Orders and/or nursing care completed as indicated. Patient monitored for response to intervention and treatment(s). Education provided includes immobility, medications, and treatment plan. Pt verbalizes understanding. Femoral site clean and dry with no s/s of hematoma. Pt on bedrest until 1900, he verbalizes understanding. No other issues noted. Will continue to monitor.
[2020-12-20] MEDS: ticagrelor 90 mg Tablet PO (18:14)
[2020-12-20] MEDS: pantoprazole DR 40 mg Tablet PO (18:14)
[2020-12-20] MEDS: hydroxychloroquine 200 mg Tablet PO (18:32)
[2020-12-20] MEDS: temazepam 15 mg Capsule PO (20:11)
[2020-12-20 20:17] LABS: Glucose Point of Care 124 mg/dL (70-110)
--- NOTE | 2020-12-20 23:00 | PC.NURSE ---
Nursing note: Pt alert and oriented x4; moves all extremities and follows commands. At 1905, pt up to urinate for first time since cardiac cath earlier today. Tolerated activity well. Denies CP. All vs and assessments as charted. Right femoral site dressing clean, dry and intact/no drainage noted. Currently resting with eyes closed, resp even and non labored. Will continue to monitor.
[2020-12-21] VITALS (23 sets, daily range): BP systolic 92–130; BP diastolic 53–85; PULSE 91–125; RESP 12–26; TEMP 37.2; O2SAT 90–98
--- NOTE | 2020-12-21 05:48 | PC.NURSE ---
Shift Note Frequent safety and comfort rounds continue. Orders and/or nursing care completed as indicated. Patient monitored for response to intervention and treatment(s). Right femoral cath site dressing C/D/I. Will continue to monitor. All vs and assessments as charted.
[2020-12-21 07:53] LABS: Glucose Point of Care 84 mg/dL (70-110)
[2020-12-21] MEDS: pantoprazole DR 40 mg Tablet PO (08:04)
[2020-12-21] MEDS: isosorbide mononitrate ER 30 mg Tablet PO (08:05)
[2020-12-21] MEDS: lisinopril 20 mg Tablet PO (08:05)
[2020-12-21] MEDS: metoprolol succinate ER (24 HR) 50 mg Tablet PO (08:05)
[2020-12-21] MEDS: FUROsemide 40 mg Tablet PO (08:05)
[2020-12-21] MEDS: atorvastatin 40 mg Tablet 20 MG PO (08:05)
[2020-12-21] MEDS: gabapentin 300 mg Capsule 600 MG PO (08:06)
[2020-12-21] MEDS: ticagrelor 90 mg Tablet PO (08:06)
[2020-12-21] MEDS: potassium chloride ER 20 mEq Tablet PO (08:06)
[2020-12-21] MEDS: hydroxychloroquine 200 mg Tablet PO (08:08)
--- NOTE | 2020-12-21 08:34 | PC.NURSE ---
0700 Report received, assessment completed. AAOX4, make all needs known. VSS. Denies any pain or SOB. R fem site c/d/i. PIV intact. Will continue to monitor.
--- NOTE | 2020-12-21 09:57 | PC.CHAP ---
Pastoral Care Encounter/Spiritual Assessment Type of Contact [] Declined welder fitter gas visit [] Patient/Family/Request visit [] Outpatient visit [] Follow-up visit [] Physician referral [] Code/Alert [x] Routine visit [] Staff referral [] Actively dying [] Patient sleeping [] Family support [] [] Out of room [] Palliative care [] [] Receiving care in room [] Pre-surgical visit [] Trauma [] Long length of stay [x] ICU visit [] Other: Relational/Emotional Strength [] Patient feels connected with others/family/visitors/staff [] Distress [] Loneliness/isolation [] Abandonment Spirituality of Patient [] Person of Jayla [] Attends Orthodox of their Jayla [] Believes in Prayer [] Reads Bible or Gnosticism materials [] There are Spiritual issues to be addressed Burlap Worker Interventions [x] Prayer [] Active listening [] Non-anxious presence [] Spiritual/emotional support [] Crisis/trauma care [] Spiritual counseling [] Bereavement support [] Provided bereavement packet [] Provided Bible/devotional materials [] Provided toy/stuffed animal, coloring book to patient or family member [] Provided Communion [] Anointing/[place] [] Salvation [x] Completed spiritual assessment [] Other: Impact on Illness or Injury [] Angry [] Fearful [] Anxious [] Often cries [] Exhaustion [] Unable to work [] Unable to attend mandaen [] Unable to walk/stand [] Unable to read [] Unable to drive [] Unable to eat/drink [] Unable to sleep [] Unable to be with family [] Patient intubated [] Other: Summary Time spent with patient
[2020-12-21 10:17] LABS: Anion Gap 14.3 (5-19); Blood Urea Nitrogen 22 mg/dL (6-20); Carbon Dioxide 25 mmol/L (22-29); Chloride 98 mmol/L (98-107); Glomerular Filtration Rate 42.2 mL/min (90-130); Glucose 124 mg/dL (65-115); Osmolality Calculated 281 mOsm/kg (285-295); Potassium 4.3 mmol/L (3.5-5.1); Sodium 133 mmol/L (136-145)
--- NOTE | 2020-12-21 10:35 | PM.DCS ---
Discharge Providers Date of Admission: 12/20/20 09:59 Date of Discharge: December 21, 2020 Attending Provider at Admission: Sarah Trujillo MD Attending Provider at Discharge: Paul Braun MD Primary Care Provider: VAISHALI Alcantara Diagnoses at Discharge Discharge Diagnosis (1) Atherosclerotic heart disease of [place] coronary artery with unstable angina pectoris: Status: Acute (2) Type 2 diabetes mellitus: Qualifiers: Diabetes mellitus complication status: with hyperglycemia Diabetes mellitus alf insulin use: without terminal block assembler use Qualified Code(s): E11.65 - Type 2 diabetes mellitus with hyperglycemia (3) Cavitary lesion of lung: Status: Acute (4) COPD (chronic obstructive pulmonary disease): (5) Dyslipidemia: Status: Acute (6) Chronic kidney disease: Status: Acute Reason for Visit Reason for Visit: 33814 i20.0 Brief History: 55 year old male with a history of atherosclerotic non-ST relation myocardial infarction, status post symptoms suggestive of unstable angina. He had PCI of the right coronary artery in December 2014. He had a moderate disease in the circumflex artery at that time. Apparently he has been doing okay with no recurrence of chest pain apparently recently when he started having chest pains. His symptoms were suggestive of an accelerated angina. His echocardiogram revealed hypokinesis in the inferolateral wall region, suggestive of ischemia in the distribution of the left circumflex artery. In view of his accelerated angina and the abnormal echocardiogram findings, in order to further evaluate his coronary status, a cardiac catheterization was recommended. Patient underwent left heart catheterization with a left and right coronary angiogram today. Patient is known to have chronic kidney disease, from the polycystic kidney. His creatinine was found to be 1.6. He is admitted to hospital for IV hydration and close monitoring. He tolerated the procedure well and there were no complications. Hospital Course Hospital Course 55 year old male with a history of atherosclerotic non-ST relation myocardial infarction, status post symptoms suggestive of unstable angina. He had PCI of the right coronary artery in December 2014. He had a moderate disease in the circumflex artery at that time. Apparently he has been doing okay with no recurrence of chest pain apparently recently when he started having chest pains. His symptoms were suggestive of an accelerated angina. His echocardiogram revealed hypokinesis in the inferolateral wall region, suggestive of ischemia in the distribution of the left circumflex artery. In view of his accelerated angina and the abnormal echocardiogram findings, in order to further evaluate his coronary status, a cardiac catheterization was recommended. Patient underwent left heart catheterization with a left and right coronary angiogram today. Patient is known to have chronic kidney disease, from the polycystic kidney. His creatinine was found to be 1.6. He is admitted to hospital for IV hydration and close monitoring. He tolerated the procedure well and there were no complications. Patient coronary angiogram showed patent prior RCA stent. Moderate disease of mid left circumflex and OM was noted. Medical therapy was advised. Stayed in the hospital overnight for IV hydration. His creatinine was stable at 1.7. He was discharged home in stable condition. Physical Exam Narrative: EXAM NARRATIVE: GENERAL: Patient is alert, awake and oriented x3. [] NECK: No jugular vein distension. [] HEENT: No cyanosis. No icterus. No pallor. [] HEART: Regular S1 and S2. No murmur, rub or gallop. [] LUNGS: Clear to auscultate bilaterally. [] ABDOMEN: Soft, nontender and nondistended. Positive bowel sounds. No guarding, rebound or tenderness. [] CENTRAL NERVOUS SYSTEM: Grossly nonfocal. [] EXTREMITIES: Lower extremities with 1+ edema bilaterally. Pulses palpable in the lower extremities, both dorsalis pedis and posterior tibial. 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 Routin e Exams 12/20/20 07:30 Completed Labs from last 24 hours 12/21/20 12/21/20 12/20/20 09:37 06:53 20:14 Sodium 133 L Potassium 4.3 Chloride 98 Carbon Dioxide 25 Anion Gap 14.3 BUN 22 H Creatinine 1.7 H GFR Calculation 42.2 L Glucose 124 H POC Glucose 84 124 H Calculated Osmolal ity 281 L Calcium 9.0 12/20/20 17:27 Sodium Potassium Chloride Carbon Dioxide Anion Gap BUN Creatinine GFR Calculation Glucose POC Glucose 128 H Calculated Osmolal ity Calcium Vitals: Last Vital Signs Temp 99.0 F 12/21/20 08:00 Pulse 98 12/21/20 10:12 Resp 16 12/21/20 10:09 BP 108/78 12/21/20 09:30 Pulse Ox 98 12/21/20 10:09 Discharge Plan Discharge Patient Disposition: Home Condition: Stable Prescriptions: Continued gabapentin 600 mg tablet 600 mg PO TID 30 Days Qty: 90 RF: 1 albuterol sulfate 1.25 mg/3 mL solution for nebulization 1.25 mg inhalation Q6H PRN (Reason: bronchospasm) 30 Days Qty: 90 RF: 1 hydroxychloroquine 200 mg tablet 200 mg PO BID 30 Days Qty: 60 RF: 0 Anoro Ellipta 62.5-25 mcg/actuation blister with device 1 inh inhalation DAILY 30 Days Qty: 60 RF: 3 atorvastatin 20 mg tablet 20 mg PO DAILY 30 Days Qty: 30 RF: 0 nitroglycerin 0.4 mg tablet, sublingual 0.4 mg sublingual Q5M PRN (Reason: chest pain) 30 Days Qty: 30 RF: 0 (DME) glucometer testing kit See Rx Instructions .Route .MEDSUPPLY Qty: 1 RF: 0 pantoprazole [Protonix] 40 mg tablet,delayed release (DR/EC) 40 mg PO BID 30 Days Qty: 60 RF: 0 sucralfate [Carafate] 1 gram tablet 1 g PO BID 30 Days Qty: 60 RF: 0 isosorbide mononitrate 30 mg tablet extended release 24 hr 30 mg PO DAILY 30 Days Qty: 30 RF: 5 Spiriva with HandiHaler 18 mcg capsule, w/inhalation device 1 cap inhalation DAILY 30 Days Qty: 60 RF: 2 benzonatate [Tessalon Perles] 100 mg capsule 100 mg PO TID PRN (Reason: cough) 30 Days Qty: 90 RF: 2 Held metformin 500 mg tablet 500 mg PO DAILY 30 Days Qty: 30 RF: 0 Hold Instructions: Resume on 12/23/20. No Action Brilinta 90 mg tablet 90 mg PO BID Qty: 180 RF: 0 lisinopril 20 mg tablet 20 mg PO DAILY RF: 0 ondansetron HCl 8 mg tablet 8 mg PO DAILY PRN (Reason: Nausea And Vomiting) RF: 0 prednisone 5 mg tablet 10 mg PO DAILY RF: 0 ferrous sulfate [iron] 325 mg (65 mg iron) Tablet 325 mg PO DAILY RF: 0 albuterol sulfate 90 mcg/actuation HFA aerosol inhaler 2 puff INHALATION Q4H PRN (Reason: Shortness Of Breath) RF: 0 cholecalciferol (vitamin D3) [Vitamin D3] 25 mcg (1,000 unit) Capsule 25 mcg PO DAILY Qty: 0 RF: 0 doxycycline monohydrate 100 mg Tablet 100 mg PO BID 3 Days Qty: 6 RF: 0 Lasix 40 mg tablet 40 mg PO DAILY PRN (Reason: swelling) Qty: 30 RF: 5 metoprolol succinate 50 mg tablet extended release 24 hr 50 mg PO BID Qty: 180 RF: 0 tramadol 50 mg tablet 50 mg PO BID PRN (Reason: pain) Qty: 10 RF: 0 Discharge Orders: Discharge Order (Routine); Ordered 12/21/20 Ordered By: Paul Braun Referrals: Sarah Trujillo MD [Physician] - 01/28/21 10:15 am (DR. TRUJILLO SCHEDULED FOLLOW UP APPOINTMENT , THURSDAY JANUARY 28, 2021 AT 10:15 , WHEN SCHEDULING APPOINTMENT ,YOU HAVE A PRIOR APPOINTMENT WITH [facility] ON THAT SAME DAY , ) Mary Teixeira FNP [Nurse Practitioner] - 12/27/20 1:15 pm (FOLLOW UP APPOINTMENT SCHEDULED . NURSE MARY CASTILLO FOR WOUND CHECK, AND LAB, POST ANGIOGRAM CHECK UP, FOR FOLLOWING DATE OF ThursdayDECEMBER 27 AT 1:15 pm ) Discharge Diet: Cardiac Discharge Activity: Increase activity as tolerated Patient Instructions: Type 2 Diabetes, Heart Healthy Diet, Basic Carbohydrate Counting (DC), Heart Catheterization (DC), Opioid Safety, Post Angiogram Home Care Instructions Discharge Attestations Time Spent in Discharge Care*: less than 30 min Quality Metrics Clinical Quality Measures During this hospital stay, did patient experience: None Coding Level of Care Code Acute Chg FW DC note Diagnoses Atherosclerotic heart disease of [place] coronary artery with unstable angina pectoris I25.110 Type 2 diabetes mellitus E11.65 Diabetes mellitus complication status: with hyperglycemia Diabetes mellitus terminal block assembler insulin use: without alf use Cavitary lesion of lung J98.4 COPD (chronic obstructive pulmonary disease) J44.9 Dyslipidemia E78.5 Chronic kidney disease N18.9
--- NOTE | 2020-12-21 11:08 | PC.PHAR ---
PT STATES HE TAKES CARE OF HIS OWN MEDICATIONS-PT BROUGHT IN SOME OF HIS MEDICATIONS PT UNABLE TO VERIFY ALL MEDICATION NAMES-MEDICATIONS ENTERED ARE MEDS PT BROUGHT IN AND STATES HE TAKES AND FROM EXT MED HISTORY-RX LAST FILLED 08/21/20 30D/S FOR METOPROLOL SUCCINATE ER 50MG TAKE 100MG BID-PT BROUGHT IN MED BOTTLE DATED 01/23/2016 FOR TARTRATE 50MG BID PT STATES HE HAS OTHER BOTTLES AT HOME HE JUST GRABBED WHAT HE COULD SEE-NOTES ARE MADE IN THE PHARMACY COMMENTS-PT BROUGHT IN MEDICATION BOTTLE FOR BRILINTA 90MG DATED 09/27/20 30D/S
[2020-12-21] MEDS: acetaminophen 325 mg Tablet 650 MG PO (12:12)
--- NOTE | 2020-12-21 12:27 | PC.NURSE ---
1224 Pt dc instructions given, meds returned and pt wheeled to exit to awaiting personal vehicle. No issues noted.
== END 2020-12-21 12:24 | disposition home or self-care (01) ==
LOC: ICU 12-21 07:40 → CCL 12-21 07:41 → ICU 12-21 07:56
PROVIDERS: Internal Medicine; Admitting Provider Internal Medicine Cardiovascular Disease; PCP Nurse Practitioner Family; Visit Provider Internal Medicine Cardiovascular Disease
DX: I25.110 Atherosclerotic heart disease of native coronary artery with unstable angina pectoris (principal); E11.65 Type 2 diabetes mellitus with hyperglycemia; J98.4 Other disorders of lung; J44.9 Chronic obstructive pulmonary disease, unspecified; E78.5 Hyperlipidemia, unspecified; N18.9 Chronic kidney disease, unspecified; Z79.84 Long term (current) use of oral hypoglycemic drugs; Z82.49 Family history of ischemic heart disease and other diseases of the circulatory system
CPT/HCPCS: 36415; 36416; 80048; 82962; 93452; 94640; 96360; 96361; C1769; C1887; C1894; G0378; J1644; J2250; J3010; J3490; J7030; Q0163; Q9967

== ENCOUNTER 2020-12-25 06:36 | Day surgery (SDC) | payer MEDICARE, MEDICAID, SELFPAY ==
[2020-12-21 15:07] VITALS: BMI 24.1
--- NOTE | 2020-12-25 06:55 | ANES.PREANE2 ---
Pre-Anesthetic Assessment Pre-Anesthetic Assessment: Height/Weight: Height 6 ft Weight 80.739 kg Preop Diagnosis: bilateral upper lobe infiltrates Proposed Procedure: Operation Date: 12/25/20 07:00 Proposed Procedures p Bronchoscopy 79737 J98.4(Not Applicable) - Aaliyah Bella MD Was Beta Irwin taken within 24 hours: Yes Was Clonidine taken within 24 hours: N/A Social: Social History: Tobacco Exam: Pre-Anes Outpt Exam: alert, oriented x 3, clear to auscultation bilaterally and regular rate & rhythm Airway: Submandibular: WNL Cervical ROM: WNL MP: 2 Dentition: Chipped History/ROS: No significant history except as noted Pulmonary: Pulmonary: COPD, Cough, MATOS and URI CV/HEM: CV/HEM: Angina (Stable), CAD and HTN Comments: recent angio/stent placement with Rahul : : Chronic renal Insufficiency Comments: PKD Hepatic: Hepatic: None reported GI: GI: None reported Metabolic: Metabolic: DM Musc/skel: Musc/skel: None reported Comments: lupus Neuropsych: Neuropsych: None reported Anesthetic Plan: ASA status: 3 Anesthesia: Anesthesia Evaluation and Choice Risk of > 500 ml blood loss (7ml/kg in children): No PFSH Anesthesia PFSH: Medical History Abnormal chest xray Acute bacterial sinusitis COPD (chronic obstructive pulmonary disease) Decreased GFR Elevated platelet count Fibromyalgia Ground glass opacity present on imaging of lung Heart disease Lupus Right forearm injury Type 2 diabetes mellitus Surgical History Status post angioplasty with stent Dr Kay 2014 Status post cholecystectomy Status post hernia repair Family History Father Diabetes CAD (coronary artery disease) Lung disease Family/Other Dementia Lung disease Sister Suicide Denies family history of Stroke Social History Second hand smoke exposure: No Smoking risk assessment/counseling performed?: Yes Alcohol intake: former Counseling given: No Counseling given: No Lives independently: Yes Household members: none Marital status: Current occupational status: disabled History of recent travel: No Current gender identity: Male Data Anesthesia Cardiac Studies: Echocardiogram 11/28/20
[2020-12-25 07:00] VITALS: BP 107/72; PULSE 82; RESP 18; TEMP 36.2; O2SAT 100
--- NOTE | 2020-12-25 07:03 | W.PM.OPSUD ---
Surgery/Procedure H&P Update DATE OF PROCEDURE: December 25, 2020 DATE H&P PERFORMED: 12/19/20 H&P UPDATE INFORMATION: I have reviewed H&P completed within last 30 days, I have examined patient prior to procedure and No changes to prior documentation PREOP DIAGNOSIS: bilateral upper lobe infiltrates PRIMARY INDICATION FOR PROCEDURE: Nonresolving pneumonia PLANNED PROCEDURE: Bronchoscopy inspection of the airway, possible endobronchial biopsy, bronchoalveolar lavage and control of bleeding Operation Date: 12/25/20 07:00 Proposed Procedures p Bronchoscopy 58066 J98.4(Not Applicable) - Aaliyah Bella MD
[2020-12-25] MEDS: sodium chloride 0.9% 1,000 ML 30 ML IV (07:14)
[2020-12-25] MEDS: lidocaine 1% INJ 20 mL XX (07:30)
--- NOTE | 2020-12-25 07:40 | PM.OP ---
Operative Report Date of procedure: December 25, 2020 Pre-op Diagnosis: bilateral upper lobe infiltrates Post-op diagnosis: same Brief History: This is a 55-year-old gentleman with nonresolving pneumonia involving bilateral upper lobes. The patient had extensive history of smoking and emphysema. Procedure: Name of the procedure: Bronchoscopy with inspection of the airway, bronchoalveolar lavage, possible endobronchial biopsies and control of bleeding. Indication: Nonresolving bilateral upper lobe pneumonia Anesthesia: MAC Local anesthesia: The vocal cords, upper and lower trachea, rox in the right and left mainstem bronchi were anesthetized with 1% lidocaine, 7 mL. Description of the procedure: The procedure was explained to the patient and the consent was obtained. The patient was brought to the OR. The patient underwent MAC for the procedure. Following induction of anesthesia, the bronchoscope was advanced through the mouth. The pharynx appeared crowded. Vocal cord was normal. The vocal cord was anesthetized with 1% lidocaine, 3 mL. The bronchoscope was then advanced through the vocal cords. The upper and lower trachea appeared mildly erythematous. The rox was sharp. The trachea, rox and right and left mainstem bronchi were anesthetized 1% lidocaine, 5 mL. In a systematic manner bilateral bronchial tree was then examined. The bronchoscope was advanced into the left mainstem bronchus. The left upper lobe, lingula and left lower lobe bronchi were examined up to the third subsegmental level and no abnormalities were identified. The bronchoscope was then introduced into the right mainstem bronchus. The right upper lobe, right middle lobe and right lower lobe bronchi were examined up to the third subsegmental level and no abnormalities were identified. There was airway erythema throughout the lung. Bronchoalveolar lavage was performed from the apical segment of the right upper lobe. A total of 120 cc of saline was introduced into instillations. The total aspiration volume was 22 mL. The fluid return was cloudy. Samples: 1. Bronchoalveolar lavage specimen was sent for Gram stain and culture, fungal stain and culture, AFB stain and culture, Aspergillus galactomannan, Fungitell, cytology. Complications: There was no immediate complications.
[2020-12-25 07:47] VITALS: BP 116/68; PULSE 96; RESP 18; TEMP 36.4; O2SAT 99
[2020-12-25 07:59] VITALS: BP 94/69; PULSE 98; RESP 18; O2SAT 98
[2020-12-25 08:11] VITALS: BP 103/63; PULSE 86; RESP 20; O2SAT 96
[2020-12-25 08:22] VITALS: BP 108/68; PULSE 99; RESP 18; O2SAT 98
[2020-12-25 08:22] LABS: Glucose Point of Care 80 mg/dL (70-110)
[2020-12-25 08:22] LABS: Glucose Point of Care 76 mg/dL (70-110)
[2021-01-01 20:23] LABS: Aspergillus AG,EIA NOT DETECTED; Aspergillus AG,EIA, Index <0.50
== END 2020-12-25 08:30 | disposition home or self-care (01) ==
PROVIDERS: PCP Nurse Practitioner Family; Visit Provider Internal Medicine Critical Care Medicine
PROC: 0BJ08ZZ Inspection of Tracheobronchial Tree, Via Natural or Artificial Opening Endoscopic (ICD-10-PCS; CPT 31622; principal; 2020-12-25 07:00)
DX: J18.9 Pneumonia, unspecified organism (principal); J43.9 Emphysema, unspecified; F17.200 Nicotine dependence, unspecified, uncomplicated; I25.10 Atherosclerotic heart disease of native coronary artery without angina pectoris; I12.9 Hypertensive chronic kidney disease with stage 1 through stage 4 chronic kidney disease, or unspecified chronic kidney disease; N18.9 Chronic kidney disease, unspecified; E11.22 Type 2 diabetes mellitus with diabetic chronic kidney disease
CPT/HCPCS: 31622; 31624; 36416; 82962; 87070; 87102; 87205; 87206; 87305; 87449; 88112; 88305; 96360; J1100; J2405; J2704; J3010; J7030

== ENCOUNTER → 2020-12-27 14:12 | Outpatient (BNVA) | payer MEDICARE, MEDICAID, SELFPAY | PROVIDERS: PCP Nurse Practitioner Family; Visit Provider Nurse Practitioner Family | DX: I25.110 Atherosclerotic heart disease of native coronary artery with unstable angina pectoris (principal); N18.9 Chronic kidney disease, unspecified | CPT/HCPCS: 80048 ==

== ENCOUNTER 2020-12-28 16:36 | Inpatient (IN) | payer MEDICARE, MEDICAID, SELFPAY ==
[2020-12-28] VITALS (8 sets, daily range): BP systolic 90–113; BP diastolic 55–78; PULSE 78–130; RESP 16–22; TEMP 36.6; O2SAT 89–99; BMI 24.1
--- NOTE | 2020-12-28 16:42 | ED_ITS ---
HPI - General Adult General: Chief complaint: Weakness Stated complaint: N/V/ LOW BLOOD SUGAR Time Seen by Provider: 12/28/20 16:42 History of Present Illness: HPI narrative: Mr. Hardin is a 55-year-old gentleman with significant past medical history of hypertension, hyperlipidemia, diabetes, CKD, COPD, and recent PCI presents emerged department due to generalized malaise. He reports that he was recovering, albeit slowly, from his hospitalization for heart cath at the start this month including complaint of chronic pneumonia when he began to for more ill. Symptoms began to acutely worsen this morning. Endorses generalized malaise, chills, lightheaded, increased cough, shortness of breath, nausea, vomiting, and diarrhea. Intensity of symptoms is moderate to severe. His symptoms are worse with exertion and any oral intake. He has tried home medications and therapies without significant relief. He cannot think of any other specific triggering, exacerbating, or alleviating factors. Review of Systems General: Reports: 10 or more systems reviewed and unremarkable except in HPI and below PFSH ED PFSH: Medical History Abnormal chest xray Acute bacterial sinusitis COPD (chronic obstructive pulmonary disease) Decreased GFR Elevated platelet count Fibromyalgia Ground glass opacity present on imaging of lung Heart disease Lupus Right forearm injury Type 2 diabetes mellitus Surgical History Status post angioplasty with stent Dr Kay 2014 Status post cholecystectomy Status post hernia repair Family History Father Diabetes CAD (coronary artery disease) Lung disease Family/Other Dementia Lung disease Sister Suicide Denies family history of Stroke Social History Second hand smoke exposure: No Smoking risk assessment/counseling performed?: Yes Alcohol intake: former Counseling given: No Counseling given: No Lives independently: Yes Household members: none Marital status: Current occupational status: disabled History of recent travel: No Current gender identity: Male Physical Exam Narrative: EXAM NARRATIVE: GENERAL/CONSTITUTIONAL -[id number]. Increased respiratory effort Eyes - PERRL, no conjunctival injection ENMT - Atraumatic external nose and ears. Moist mucous membranes NECK - supple. trachea midline CARDIOVASCULAR - regular rate and rhythm. Peripheral pulses 2+ and equal RESPIRATORY -coarse to auscultation bilaterally. Increased respiratory effort ABDOMEN/GI - Nontender/Nondistended. No tenderness to percussion or evidence of peritonitis MSK - Extremities without obvious deformity or tenderness to palpation SKIN - Warm, Dry NEURO - alert and appropriately oriented. Moves all extremities equally. Course ED course: - Patient was seen and evaluated by me at bedside - Patient placed on cardiac monitors, IV access obtained - Initial evaluation notable for ill appearance, increased respiratory effort and rate. - Labs notable for leukocytosis. Hemoglobin mildly improved from baseline. Thrombocytosis. Metabolic panel with hyponatremia and hypochloremia. Creatinine elevated above baseline meeting KAREN criteria. Negative delta troponin. CRP and BNP elevated. Procalcitonin elevated. Blood cultures obtained. - Imaging notable for bilateral upper lobe pneumonias with marked worsening of the right compared to prior. - Fluids and antibiotics given. In combination with approximately 500 cc of fluid given prehospital patient received 30 cc/kg ideal body weight. - Upon serial reexamination after treatment the patient was mildly improved, remains tachycardic but overall clinically improved. - Based on patient history, evaluation, labs, and imaging as interpreted the most likely cause of the patient's condition is sepsis secondary to worsening pneumonia - The results of ED evaluation were discussed with the patient including plan for admission due to requirement for level of care not available if discharged to prevent significant worsening/deterioration. -Hospitalist service contacted and agreed admit the patient. - Patient was admitted without further deterioration or significant events. Vital Signs: Vital signs: Vital Signs Temperature 98.2 F 01/01/21 15:40 Pulse Rate 95 01/01/21 17:28 Respiratory Rate 20 H 01/01/21 17:28 Blood Pressure 115/75 01/01/21 15:40 Pulse Oximetry 95 01/01/21 17:28 MDM - General Adult Medical Records: Attestation: I reviewed the patient's medical records. Lab Data: Attestation: I reviewed the patient's lab results. Labs: Lab Results 12/28/20 12/28/20 12/28/20 16:58 17:05 17:05 WBC 24.8 10^3/uL H 10 ^3/uL (4.0-10.0) RBC 3.93 10^6/uL L 10 ^6/uL (4.1-5.3) Hgb 11.2 g/dL L g/dL (11.7-16.6) Hct 34.5 % L % (42.0-52.0) MCV 87.8 fl fl (80-94) MCH 28.5 pg pg (28.0-34.0) MCHC 32.5 g/dL g/dL (30.0-36.0) RDW 15.3 % H % (12.1-15.1) Plt Count 433 10^3/cmm H 10 ^3/cmm (130-400) MPV 9.0 fL fL (7.4-10.4) Neut % (Auto) 90.5 % % Lymph % (Auto) 2.1 % % [place] % (Auto) 6.7 % % Eos % (Auto) 0.1 % % Baso % (Auto) 0.2 % % Neut # (Auto) 22.41 10^3/uL H 1 0^3/uL (1.8-7.7) Lymph # (Auto) 0.5 10^3/uL L 10^ 3/uL (0.8-4.8) [place] # (Auto) 1.7 10^3/uL H 10^ 3/uL (0.2-0.9) Eos # (Auto) 0.0 10^3/uL 10^3/ uL (0.0-0.8) Baso # (Auto) 0.1 10^3/uL 10^3/ uL (0.0-0.1) Nucleated RBC % (a uto) 0 % % Nucleated RBCs # 0.0 /100WBC /100W BC Specimen Type Arterial Sample Site Brachial, right ABG pH 7.42 (7.35-7.45) ABG pCO2 31.3 mmHg L mmHg (35-45) ABG pO2 69.9 mmHg L mmHg (80.0-100.0) ABG HCO3 20.3 mmol/L L mmo l/L (22-26) ABG Base Excess -3.5 mmol/L L mmo l/L (-2.0-2.0) Sixto Test Pos Hematocrit 30.8 % L % (42-52) O2 Delivery Device Room air FiO2 21.0 % % X Ray Operator ID Cak Sodium 124 mmol/L L mmol /L (136-145) Potassium 4.4 mmol/L mmol/L (3.5-5.1) Chloride 88 mmol/L L mmol/ L (98-107) Carbon Dioxide 18 mmol/L L mmol/ L (22-29) Anion Gap 22.4 H (5-19) BUN 34 mg/dL H mg/dL (6-20) Creatinine 2.0 mg/dL H mg/dL (0.7-1.2) GFR Calculation 35.0 mL/min L mL/ min (90-130) Glucose 87 mg/dL mg/dL (65-115) POC Glucose Calculated Osmolal ity 265 mOsm/kg L mOs m/kg (285-295) Lactate Calcium 8.8 mg/dL mg/dL (8.5-10.5) Phosphorus 2.5 mg/dL mg/dL (2.5-4.5) Magnesium 1.2 mg/dL L mg/dL (1.7-2.3) Total Bilirubin 0.2 mg/dL mg/dL (0.15-1.2) AST 23 U/L U/L (0-40) ALT 18 U/L U/L (0-41) Alkaline Phosphata se 64 IU/L IU/L (40-130) Troponin T Baselin e Troponin T 120 Min [place] Troponin T C-Reactive Protein NT-Pro-B Natriuret Pep 2313 pg/mL H pg/m L (0-125) Total Protein 6.3 g/dL L g/dL (6.6-8.7) Albumin 3.3 g/dL L g/dL (3.5-5.2) Globulin 3.0 g/dL g/dL (1.3-4.6) Lipase 20 U/L U/L (13-60) Procalcitonin TSH 1.94 uIU/mL uIU/m L (0.27-4.20) Random Cortisol Urine Color Urine Appearance Urine pH Ur Specific Gravit y Urine Protein Urine Glucose (UA) Urine Ketones Urine Blood Urine Nitrate Urine Bilirubin Urine Urobilinogen Ur Leukocyte Vania ase 12/28/20 12/28/20 12/28/20 17:05 17:05 17:05 WBC RBC Hgb Hct MCV MCH MCHC RDW Plt Count MPV Neut % (Auto) Lymph % (Auto) [place] % (Auto) Eos % (Auto) Baso % (Auto) Neut # (Auto) Lymph # (Auto) [place] # (Auto) Eos # (Auto) Baso # (Auto) Nucleated RBC % (a uto) Nucleated RBCs # Specimen Type Sample Site ABG pH ABG pCO2 ABG pO2 ABG HCO3 ABG Base Excess [place]xt[place] Test Hematocrit O2 Delivery Device FiO2 X Ray Operator ID Sodium Potassium Chloride Carbon Dioxide Anion Gap BUN Creatinine GFR Calculation Glucose POC Glucose 98 mg/dL mg/dL (70-110) Calculated Osmolal ity Lactate 2.5 mmol/L H mmol /L (0.5-2.2) Calcium Phosphorus Magnesium Total Bilirubin AST ALT Alkaline Phosphata se Troponin T Baselin e 41 ng/L H ng/L (0-15) Troponin T 120 Min [place] Troponin T C-Reactive Protein NT-Pro-B Natriuret Pep Total Protein Albumin Globulin Lipase Procalcitonin TSH Random Cortisol Urine Color Urine Appearance Urine pH Ur Specific Gravit y Urine Protein Urine Glucose (UA) Urine Ketones Urine Blood Urine Nitrate Urine Bilirubin Urine Urobilinogen Ur Leukocyte Vania ase 12/28/20 12/28/20 12/28/20 17:26 18:57 18:57 WBC RBC Hgb Hct MCV MCH MCHC RDW Plt Count MPV Neut % (Auto) Lymph % (Auto) [place] % (Auto) Eos % (Auto) Baso % (Auto) Neut # (Auto) Lymph # (Auto) [place] # (Auto) Eos # (Auto) Baso # (Auto) Nucleated RBC % (a uto) Nucleated RBCs # Specimen Type Sample Site ABG pH ABG pCO2 ABG pO2 ABG HCO3 ABG Base Excess [place]xt[place] Test Hematocrit O2 Delivery Device FiO2 X Ray Operator ID Sodium Potassium Chloride Carbon Dioxide Anion Gap BUN Creatinine GFR Calculation Glucose POC Glucose Calculated Osmolal ity Lactate Calcium Phosphorus Magnesium Total Bilirubin AST ALT Alkaline Phosphata se Troponin T Baselin e Troponin T 120 Min [place] 31.75 ng/L H ng/L (0-15) Delta Troponin T -9.25 ABS# L ABS# (0-10) C-Reactive Protein 77.3 mg/L H mg/L (0.0-4.9) NT-Pro-B Natriuret Pep Total Protein Albumin Globulin Lipase Procalcitonin 11.56 ng/mL H ng/ mL (0-0.5) TSH Random Cortisol 12.83 ug/dL ug/dL (2.47-19.5) Urine Color Yellow (Yellow) Urine Appearance Clear (CLEAR) Urine pH 5 (5-7) Ur Specific Gravit y 1.005 (1.005-1.030) Urine Protein Trace (Negative) Urine Glucose (UA) Norm (Normal) Urine Ketones Negative (Negative) Urine Blood Neg (Negative) Urine Nitrate Negative (Negative) Urine Bilirubin 1+ H (Negative) Urine Urobilinogen Norm mg/dL mg/dL (Negative) Ur Leukocyte Vania ase Negative (Negative) 12/28/20 19:34 WBC RBC Hgb Hct MCV MCH MCHC RDW Plt Count MPV Neut % (Auto) Lymph % (Auto) [place] % (Auto) Eos % (Auto) Baso % (Auto) Neut # (Auto) Lymph # (Auto) [place] # (Auto) Eos # (Auto) Baso # (Auto) Nucleated RBC % (a uto) Nucleated RBCs # Specimen Type Sample Site ABG pH ABG pCO2 ABG pO2 ABG HCO3 ABG Base Excess [place] Test Hematocrit O2 Delivery Device FiO2 X Ray Operator ID Sodium Potassium Chloride Carbon Dioxide Anion Gap BUN Creatinine GFR Calculation Glucose POC Glucose Calculated Osmolal ity Lactate 1.1 mmol/L mmol/L (0.5-2.2) Calcium Phosphorus Magnesium Total Bilirubin AST ALT Alkaline Phosphata se Troponin T Baselin e Troponin T 120 Min [place] Troponin T C-Reactive Protein NT-Pro-B Natriuret Pep Total Protein Albumin Globulin Lipase Procalcitonin TSH Random Cortisol Urine Color Urine Appearance Urine pH Ur Specific Gravit y Urine Protein Urine Glucose (UA) Urine Ketones Urine Blood Urine Nitrate Urine Bilirubin Urine Urobilinogen Ur Leukocyte Vania ase EKG Data^: EKG 1: Attestation: I personally reviewed and interpreted this EKG as follows: EKG interpretation date: 12/28/20 EKG interpretation time: 16:57 Interpretation: Twelve-lead EKG shows a regular rhythm at a rate of 123. WI interval 138, QRS duration 85, QTc 340. Normal axis. Interpretation: Sinus tachycardia. Computer generated interpretation: Chest X-Ray 12/28/20 16:48 IMPRESSION: 1. Bilateral upper lobe pneumonia, increased on the right. Radiation Dose CTDIVOL = (mGy): DLP = (mGy-cm) Abdomen/Pelvis CT 12/29/20 17:23 IMPRESSION: 1. Prominent fluid in the small bowel without dilation may reflect an enteritis. 2. Trace bilateral pleural effusions. 3. Emphysematous changes. 4. Bibasilar atelectasis. 5. Several hepatic cysts. 6. Cholecystectomy. 7. Polycystic kidneys. 8. Small amount of fluid in the pelvis, nonspecific. 9. Diverticulosis without diverticulitis. Radiation Dose CTDIVOL = (mGy): DLP = 1518.18 (mGy-cm) Head CT 01/01/21 13:54 IMPRESSION: 1. No evidence of intracranial hemorrhage or mass effect. 2. Mild small vessel changes. Mild parenchymal volume loss. 3. Right maxillary sinusitis. EKG 2: Attestation: I personally reviewed and interpreted this EKG as follows: EKG interpretation date: 12/28/20 EKG interpretation time: 19:14 Interpretation: Twelve-lead EKG shows a regular rhythm at a rate of 109. WI interval 139, QRS duration 82, QTc 356. Normal axis. Interpretation: Sinus tachycardia. Computer generated interpretation: Chest X-Ray 12/28/20 16:48 IMPRESSION: 1. Bilateral upper lobe pneumonia, increased on the right. Radiation Dose CTDIVOL = (mGy): DLP = (mGy-cm) Abdomen/Pelvis CT 12/29/20 17:23 IMPRESSION: 1. Prominent fluid in the small bowel without dilation may reflect an enteritis. 2. Trace bilateral pleural effusions. 3. Emphysematous changes. 4. Bibasilar atelectasis. 5. Several hepatic cysts. 6. Cholecystectomy. 7. Polycystic kidneys. 8. Small amount of fluid in the pelvis, nonspecific. 9. Diverticulosis without diverticulitis. Radiation Dose CTDIVOL = (mGy): DLP = 1518.18 (mGy-cm) Head CT 01/01/21 13:54 IMPRESSION: 1. No evidence of intracranial hemorrhage or mass effect. 2. Mild small vessel changes. Mild parenchymal volume loss. 3. Right maxillary sinusitis. Discharge Plan Discharge Patient Disposition: Admitted As Inpatient Admit Provider: Henry Corea Clinical Impression: Sepsis, Multifocal pneumonia Condition: Stable Discharge Diet: Cardiac and Diabetic Discharge Activity: Resume usual activity Coding Level of Care Code ED Plastic Boat Patcher for Chg Shamika
--- NOTE | 2020-12-28 16:48 | XRR_ITS ---
PROCEDURE INFORMATION: Exam: XR Chest Exam date and time: 12/28/2020 4:48 PM Age: 55 years old Clinical indication: Cough and shortness of breath; Additional info: Cough, SOB TECHNIQUE: Imaging protocol: XR of the chest. Views: 1 view. COMPARISON: 1. CT chest wo con [id number] 11/20/2020 2:16 PM 2. CR XR chest 2V* [id number] 11/13/2020 4:15:00 PM FINDINGS: Lungs: Increased consolidation in the peripheral right upper lobe. Stable consolidation in both lung apices. Left nipple shadow projects over the lung base. Pleural spaces: Unremarkable. No pleural effusion. No pneumothorax. Heart/Mediastinum: Unremarkable. No cardiomegaly. Bones/joints: Old right rib fracture. XR/XR chest 1V portable [id number] IMPRESSION: 1. Bilateral upper lobe pneumonia, increased on the right. Radiation Dose CTDIVOL = (mGy): DLP = (mGy-cm)
--- NOTE | 2020-12-28 16:50 | ECG_ITS ---
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 Measurements Intervals [place] Rate: 123 P: 52 RI: 138 QRS: 81 QRSD: 85 T: 63 QT: 267 QTc: 382 Interpretive Statements SINUS TACHYCARDIA SEPTAL MYOCARDIAL INFARCTION , PROBABLY OLD [40+ ms Q WAVE IN V1/V2] Compared to ECG 03/18/2017 23:02:40 Myocardial infarct finding now present Sinus rhythm no longer present Sinus arrhythmia no longer present Electronically Signed On 12-28-2020 19:45:09 COMPLIANCE ASSISTANT by Paul Braun M.D. [id number]
[2020-12-28 17:09] LABS: ABG PCO2 31.3 mmHg (35-45); ABG PH Result 7.42 (7.35-7.45); Arterial Blood Gas Hematocrit 30.8 % (42-52); Base Excess ABG -3.5 mmol/L (-2.0-2.0); Blood Gas Allen Test Pos; Blood Gas Operator Identificat CAK; Blood Gas Sample Site Brachial, right; Blood Gas Sample Type Arterial; HCO3 ABG 20.3 mmol/L (22-26); Oxygen Device ROOM AIR; PO2 ABG 69.9 mmHg (80.0-100.0)
[2020-12-28 17:11] LABS: Glucose Point of Care 98 mg/dL (70-110)
[2020-12-28] MEDS: sodium chloride 0.9% 1,000 ML 999 ML IV ×2 (17:11→18:20)
[2020-12-28] MEDS: piperacillin-tazobactam 3.375 GM in sodium chloride 0.9% (plus) 50 ML IV ×2 (17:19→23:24)
[2020-12-28 17:22] LABS: Basophils # 0.1 10^3/uL (0.0-0.1); Basophils % 0.2 %; Eosinophils % 0.1 %; Hematocrit 34.5 % (42.0-52.0); Hemoglobin 11.2 g/dL (11.7-16.6); Lymphocytes # 0.5 10^3/uL (0.8-4.8); Lymphocytes % 2.1 %; Mean Corpuscular HGB Conc 32.5 g/dL (30.0-36.0); Mean Corpuscular Hemoglobin 28.5 pg (28.0-34.0); Mean Corpuscular Volume 87.8 fl (80-94); Monocytes # 1.7 10^3/uL (0.2-0.9); Monocytes % 6.7 %; Neutrophils # 22.41 10^3/uL (1.8-7.7); Neutrophils % 90.5 %; Nucleated Red Blood Cells % 0 %; Platelet Count 433 10^3/cmm (130-400); Red Blood Count 3.93 10^6/uL (4.1-5.3); Red Cell Distribution Width 15.3 % (12.1-15.1); White Blood Count 24.8 10^3/uL (4.0-10.0)
[2020-12-28 17:34] LABS: Add Urine Microscopic? NO; Charge for UA Resulting for Rev
[2020-12-28 17:42] LABS: Alanine Aminotransferase 18 U/L (0-41); Aspartate Amino Transferase 23 U/L (0-40)
[2020-12-28 17:43] LABS: Protein Urine Trace (Negative); Specific Gravity, Urine 1.005 (1.005-1.030); Urine Appearance Clear (CLEAR); Urine Color Yellow (Yellow); pH Urine 5 (5-7)
[2020-12-28 17:43] LABS: Lactate (Lactic Acid level) 2.5 mmol/L (0.5-2.2); Slide Review Slide Review Perform
[2020-12-28 17:44] LABS: Bilirubin Urine 1+ (Negative); Blood Urine Neg (Negative); Glucose Urine UA Norm (Normal); Ketones Urine Negative (Negative); Leukocyte Esterase Urine Negative (Negative); Nitrate Urine Negative (Negative); Urobilinogen Urine Norm (Negative)
[2020-12-28 17:44] LABS: Troponin(5th) Baseline 41 ng/L (0-15)
[2020-12-28 18:09] LABS: Albumin Level 3.3 g/dL (3.5-5.2); Anion Gap 22.4 (5-19); Blood Urea Nitrogen 34 mg/dL (6-20); Calcium 8.8 mg/dL (8.5-10.5); Carbon Dioxide 18 mmol/L (22-29); Chloride 88 mmol/L (98-107); Lipase 20 U/L (13-60); Magnesium 1.2 mg/dL (1.7-2.3); NT Pro B Type Natriuretic Pept 2313 pg/mL (0-125); Osmolality Calculated 265 mOsm/kg (285-295); Phosphorus 2.5 mg/dL (2.5-4.5); Sodium 124 mmol/L (136-145); Thyroid Stimulating Hormone 1.94 uIU/mL (0.27-4.20); Total Bilirubin 0.2 mg/dL (0.15-1.2); Total Protein 6.3 g/dL (6.6-8.7)
[2020-12-28 18:10] LABS: Alkaline Phosphatase 64 IU/L (40-130); Glucose 87 mg/dL (65-115); Potassium 4.4 mmol/L (3.5-5.1)
--- NOTE | 2020-12-28 18:50 | ECG_ITS ---
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 Measurements Intervals [place] Rate: 109 P: 61 RI: 139 QRS: 82 QRSD: 82 T: 72 QT: 292 QTc: 394 Interpretive Statements SINUS TACHYCARDIA SEPTAL MYOCARDIAL INFARCTION , PROBABLY OLD [40+ ms Q WAVE IN V1/V2] Compared to ECG 12/28/2020 16:50:14 No significant changes Electronically Signed On 12-28-2020 19:48:16 HEEL SEAT FITTER MACHINE by Paul Braun M.D. [id number]
[2020-12-28 19:28] LABS: Troponin 5 2HR 31.75 ng/L (0-15)
[2020-12-28 19:30] LABS: Troponin 5 2HR Delta -9.25 ABS# (0-10)
[2020-12-28 19:56] LABS: Lactate (Lactic Acid level) 1.1 mmol/L (0.5-2.2)
[2020-12-28] MEDS: magnesium sulfate premix 2 GM/50 ML PIGGYBACK IV (20:03)
[2020-12-28 21:46] LABS: Cortisol Random 12.83 ug/dL (2.47-19.5); Procalcitonin 11.56 ng/mL (0-0.5)
[2020-12-28 21:57] LABS: C Reactive Protein 77.3 mg/L (0.0-4.9)
--- NOTE | 2020-12-28 22:50 | PM.HP ---
Providers/Chief Complaint Admitting Physician: Henry Corea Primary Care Provider: VAISHALI Alcantara Chief Complaint: N/V/ LOW BLOOD SUGAR History of Present Illness Arelis Hardin is a 55 year old male with significant past medical history of hypertension, hyperlipidemia, diabetes, SLE, chronic steroids, polycystic kidney disease, CKD, COPD, and recent PCI presents emerged department due to generalized malaise, shortness of breath, increasing productive cough with yellow mucus. He reports that he was recovering, albeit slowly, from his hospitalization for heart cath at the start this month including complaint of chronic pneumonia when he began to for more ill. Symptoms began to acutely worsen this morning. Endorses generalized malaise, chills, lightheaded, increased cough, shortness of breath, nausea, vomiting, and diarrhea. Intensity of symptoms is moderate to severe. His symptoms are worse with exertion and any oral intake. He has tried home medications and therapies without significant relief. He cannot think of any other specific triggering, exacerbating, or alleviating factors. He underwent bronchoscopy several days ago by Dr. Bella. Most of the test results are still pending. The patient states that so far he has not improved with the previously provided treatments. Review of Systems General: Reports: 10 or more systems reviewed and unremarkable except in HPI and below Medications/Allergies Home Medications Medication Instructions Recorded Confirmed Last Taken Type albuterol sulfate 1.25 mg/3 mL 1.25 mg INHALATION Q6H PRN 30 Days 10/30/20 12/27/20 12/18/20 Rx solution for nebulization #90 ml gabapentin 600 mg tablet 600 mg PO TID 30 Days #90 tab 10/30/20 12/27/20 12/24/20 Rx atorvastatin 20 mg tablet 20 mg PO DAILY 30 Days #30 tab 11/13/20 12/27/20 12/19/20 10:00 Rx glucometer testing kit #1 ea 11/13/20 12/27/20 Unknown Rx metformin 500 mg tablet 500 mg PO DAILY 30 Days #30 tab 11/13/20 12/27/20 12/18/20 Rx nitroglycerin 0.4 mg sublingual 0.4 mg SUBLINGUAL Q5M PRN 30 Days 11/13/20 12/27/20 12/23/20 Rx tablet #30 tab pantoprazole 40 mg tablet,delayed 40 mg PO BID 30 Days #60 tab 11/13/20 12/27/20 12/18/20 Rx release sucralfate 1 gram tablet 1 g PO BID 30 Days #60 tab 11/13/20 12/27/20 Unknown Rx benzonatate 100 mg capsule 100 mg PO TID PRN 30 Days #90 cap 11/28/20 12/27/20 12/24/20 Rx hydroxychloroquine 200 mg tablet 200 mg PO BID 30 Days #60 tab 11/28/20 12/27/20 12/24/20 Rx isosorbide mononitrate 30 mg 30 mg PO DAILY 30 Days #30 tab 11/28/20 12/27/20 12/22/20 Rx tablet,extended release 24 hr tiotropium bromide 18 mcg capsule 1 cap INHALATION DAILY 30 Days #60 11/28/20 12/27/20 12/18/20 Rx with inhalation device inh furosemide 40 mg tablet 40 mg PO DAILY #30 tab 11/29/20 12/27/20 12/23/20 Rx umeclidinium 62.5 mcg-vilanterol 1 inh INHALATION DAILY 30 Days #60 12/19/20 12/27/20 Unknown Rx 25 mcg/actuation powdr for ea inhalation Vitamin D3 1 cap PO DAILY 12/21/20 12/27/20 12/24/20 History albuterol sulfate 2 puff INHALATION Q4H PRN 12/21/20 12/27/20 12/24/20 History budesonide 0.5 mg INHALATION BID PRN 12/21/20 12/27/20 12/18/20 History ferrous sulfate [iron] 325 mg PO DAILY 12/21/20 12/27/20 12/18/20 History lisinopril 20 mg PO DAILY 12/21/20 12/27/20 12/24/20 History ondansetron HCl 8 mg PO DAILY PRN 12/21/20 12/27/20 Unknown History prednisone 10 mg PO DAILY 12/21/20 12/27/20 12/22/20 History metoprolol succinate 50 mg 50 mg PO BID #180 tab 12/27/20 12/27/20 Unknown Rx tablet,extended release 24 hr ticagrelor 90 mg tablet 90 mg PO BID #180 tab 12/27/20 12/27/20 Unknown Rx potassium chloride 20 mEq 10 meq PO DAILY #30 tab 12/28/20 Unknown Rx tablet,extended release Allergies Allergy/AdvReac Type Severity Reaction Status Date / Time venom-wasp Allergy Severe ALGY-Hives Verified 12/27/20 13:33 Sulfa (Sulfonamide Allergy Intermediate itching Verified 12/27/20 13:33 Antibiotics) PFSH Acute PFSH: Medical History Abnormal chest xray Acute bacterial sinusitis COPD (chronic obstructive pulmonary disease) Decreased GFR Elevated platelet count Fibromyalgia Ground glass opacity present on imaging of lung Heart disease Lupus Right forearm injury Type 2 diabetes mellitus Surgical History Status post angioplasty with stent Dr Kay 2014 Status post cholecystectomy Status post hernia repair Family History Father Diabetes CAD (coronary artery disease) Lung disease Family/Other Dementia Lung disease Sister Suicide Denies family history of Stroke Social History Second hand smoke exposure: No Smoking risk assessment/counseling performed?: Yes Alcohol intake: former Counseling given: No Counseling given: No Lives independently: Yes Household members: none Marital status: Current occupational status: disabled History of recent travel: No Current gender identity: Male Vitals/I&O/Wt Last Vital Signs Temp 97.9 F 12/28/20 16:40 Pulse 78 12/28/20 22:48 Resp 16 12/28/20 22:48 BP 94/68 12/28/20 22:48 Pulse Ox 94 12/28/20 22:48 Weight last 48 hrs Weight 80.739 kg Physical Exam Narrative: EXAM NARRATIVE: The patient is awake and alert, oriented x4. Mild distress. Mood and affect are appropriate. Responses are adequate. Skin is warm and dry. Extremities Eyes PERRL, extraocular muscles are intact. No rash on the face. Neck supple. No JVD Lungs bilateral coarse breath sounds and mild bilateral crackles mostly localized in the upper lobes. No respiratory distress currently. Heart S1, S2, regular Abdomen is soft, nontender, bowel sounds are present Extremities bilateral edema. No cyanosis no calf tenderness bilaterally. Data : 12/28/20 17:05 12/28/20 17:05 Other Labs: Laboratory Results WBC 24.8 10^3/uL (4.0-10.0) H 12/28/20 17:05 RBC 3.93 10^6/uL (4.1-5.3) L 12/28/20 17:05 Hgb 11.2 g/dL (11.7-16.6) L 12/28/20 17:05 Hct 34.5 % (42.0-52.0) L 12/28/20 17:05 MCV 87.8 fl (80-94) 12/28/20 17:05 MCH 28.5 pg (28.0-34.0) 12/28/20 17:05 MCHC 32.5 g/dL (30.0-36.0) 12/28/20 17:05 RDW 15.3 % (12.1-15.1) H 12/28/20 17:05 Plt Count 433 10^3/cmm (130-400) H 12/28/20 17:05 MPV 9.0 fL (7.4-10.4) 12/28/20 17:05 Neut % (Auto) 90.5 % 12/28/20 17:05 Lymph % (Auto) 2.1 % 12/28/20 17:05 Stearns % (Auto) 6.7 % 12/28/20 17:05 Eos % (Auto) 0.1 % 12/28/20 17:05 Baso % (Auto) 0.2 % 12/28/20 17:05 Neut # (Auto) 22.41 10^3/uL (1.8-7.7) H 12/28/20 17:05 Lymph # (Auto) 0.5 10^3/uL (0.8-4.8) L 12/28/20 17:05 Stearns # (Auto) 1.7 10^3/uL (0.2-0.9) H 12/28/20 17:05 Eos # (Auto) 0.0 10^3/uL (0.0-0.8) 12/28/20 17:05 Baso # (Auto) 0.1 10^3/uL (0.0-0.1) 12/28/20 17:05 Nucleated RBC % (auto) 0 % 12/28/20 17:05 Nucleated RBCs # 0.0 /100WBC 12/28/20 17:05 Specimen Type Arterial 12/28/20 16:58 Sample Site Brachial, right 12/28/20 16:58 ABG pH 7.42 (7.35-7.45) 12/28/20 16:58 ABG pCO2 31.3 mmHg (35-45) L 12/28/20 16:58 ABG pO2 69.9 mmHg (80.0-100.0) L 12/28/20 16:58 ABG HCO3 20.3 mmol/L (22-26) L 12/28/20 16:58 ABG Base Excess -3.5 mmol/L (-2.0-2.0) L 12/28/20 16:58 Sixto Test Pos 12/28/20 16:58 Hematocrit 30.8 % (42-52) L 12/28/20 16:58 O2 Delivery Device Room air 12/28/20 16:58 FiO2 21.0 % 12/28/20 16:58 [employer] ID Cak 12/28/20 16:58 Sodium 124 mmol/L (136-145) L 12/28/20 17:05 Potassium 4.4 mmol/L (3.5-5.1) 12/28/20 17:05 Chloride 88 mmol/L (98-107) L 12/28/20 17:05 Carbon Dioxide 18 mmol/L (22-29) L 12/28/20 17:05 Anion Gap 22.4 (5-19) H 12/28/20 17:05 BUN 34 mg/dL (6-20) H 12/28/20 17:05 Creatinine 2.0 mg/dL (0.7-1.2) H 12/28/20 17:05 GFR Calculation 35.0 mL/min (90-130) L 12/28/20 17:05 Glucose 87 mg/dL (65-115) 12/28/20 17:05 POC Glucose 98 mg/dL (70-110) 12/28/20 17:05 Calculated Osmolality 265 mOsm/kg (285-295) L 12/28/20 17:05 Lactate 1.1 mmol/L (0.5-2.2) 12/28/20 19:34 Calcium 8.8 mg/dL (8.5-10.5) 12/28/20 17:05 Phosphorus 2.5 mg/dL (2.5-4.5) 12/28/20 17:05 Magnesium 1.2 mg/dL (1.7-2.3) L 12/28/20 17:05 Total Bilirubin 0.2 mg/dL (0.15-1.2) 12/28/20 17:05 AST 23 U/L (0-40) 12/28/20 17:05 ALT 18 U/L (0-41) 12/28/20 17:05 Alkaline Phosphatase 64 IU/L (40-130) 12/28/20 17:05 Troponin T Baseline 41 ng/L (0-15) H 12/28/20 17:05 Troponin T 120 Minute 31.75 ng/L (0-15) H 12/28/20 18:57 Delta Troponin T -9.25 ABS# (0-10) L 12/28/20 18:57 C-Reactive Protein 77.3 mg/L (0.0-4.9) H 12/28/20 18:57 NT-Pro-B Natriuret Pep 2313 pg/mL (0-125) H 12/28/20 17:05 Total Protein 6.3 g/dL (6.6-8.7) L 12/28/20 17:05 Albumin 3.3 g/dL (3.5-5.2) L 12/28/20 17:05 Globulin 3.0 g/dL (1.3-4.6) 12/28/20 17:05 Lipase 20 U/L (13-60) 12/28/20 17:05 Procalcitonin 11.56 ng/mL (0-0.5) H 12/28/20 18:57 TSH 1.94 uIU/mL (0.27-4.20) 12/28/20 17:05 Random Cortisol 12.83 ug/dL (2.47-19.5) 12/28/20 18:57 Urine Color Yellow (Yellow) 12/28/20 17:26 Urine Appearance Clear (CLEAR) 12/28/20 17:26 Urine pH 5 (5-7) 12/28/20 17:26 Ur Specific Ronan 1.005 (1.005-1.030) 12/28/20 17:26 Urine Protein Trace (Negative) 12/28/20 17:26 Urine Glucose (UA) Norm (Normal) 12/28/20 17:26 Urine Ketones Negative (Negative) 12/28/20 17:26 Urine Blood Neg (Negative) 12/28/20 17:26 Urine Nitrate Negative (Negative) 12/28/20 17:26 Urine Bilirubin 1+ (Negative) H 12/28/20 17:26 Urine Urobilinogen Norm mg/dL (Negative) 12/28/20 17:26 Ur Leukocyte Esterase Negative (Negative) 12/28/20 17:26 Impressions Chest X-Ray 12/28/20 16:48 IMPRESSION: 1. Bilateral upper lobe pneumonia, increased on the right. Radiation Dose CTDIVOL = (mGy): DLP = (mGy-cm) Micro: Microbiology 12/28/20 18:57 Blood Culture - Preliminary Blood SPECIMEN COLLECTED 12/28/20 17:05 Blood Culture - Preliminary Blood SPECIMEN COLLECTED A&P Assessment and plan (1) Sepsis: Status: Acute (2) Bilateral pneumonia: Status: Acute (3) Acute kidney injury: Status: Acute (4) Chronic use of steroids: Status: Acute (5) Adrenal insufficiency: Status: Acute (6) COPD (chronic obstructive pulmonary disease): Status: Acute (7) CHF (congestive heart failure): Status: Acute (8) Type 2 diabetes mellitus: Status: Acute Qualifiers: Diabetes mellitus fdc insulin use: without middle or intermediate 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 Severe sepsis secondary to multifocal bilateral pneumonia. Received initial fluids in the emergency room. Currently hemodynamically stable. Going to ICU. We will continue aggressive treatment with antibiotics: Vancomycin, Zosyn and doxycycline. Possible ask Dr. Bella to help with the management of the patient in the morning. No need for the pressors at this time. He will also receive respiratory treatments. His random cortisol is not elevated as would be expected in this condition. I suspect adrenal insufficiency due to chronic steroid use. We will start him on hydrocortisone IV. Will be very careful with IV fluids since his BNP is elevated and CHF is suspected. Will order 2D echo. Will reassess his hydration status in the morning and order fluids if necessary. Hyponatremia. I suspect this is due to his lung disease. I expect it would improve with IV fluids that he already received. If it persists we will consider additional testing. Acute hypoxic respiratory failure secondary to #1. Continue oxygen and respiratory treatments in ICU. Hypokalemia. Replaced. We will continue monitoring. Acute kidney injury on top of chronic kidney disease secondary to #1. Will reassess in the morning after hydration. Will avoid nephrotoxic medications. Diabetes. Insulin sliding scale. DVT prophylaxis. SCDs and Lovenox. The patient wants to be full code. The plan of care was discussed with the patient and the family. They verbalized understanding and agreement. Attestations Medical Necessity Statement*: Based on my assessment of patient's current condition, diagnosis and plan of care I expect that the patient will spend more than 2 midnights in the hospital. 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
[2020-12-28] MEDS: benzonatate 100 mg Capsule PO (23:22)
[2020-12-28] MEDS: heparin 5,000 unit/mL INJ 1 mL 5000 UNIT SUBCUT (23:23)
[2020-12-28] MEDS: hydrocortisone 100 mg/2 mL SDV 50 MG IVP (23:23)
[2020-12-28] MEDS: sodium chlor 0.9% + KCl 20 mEq 20 MEQ/1,000 ML BAG 75 MEQ IV (23:24)
[2020-12-28] MEDS: acetaminophen 325 mg Tablet 650 MG PO (23:40)
[2020-12-29] VITALS (36 sets, daily range): BP systolic 86–152; BP diastolic 59–113; PULSE 0–116; RESP 14–29; TEMP 36.6–37.1; O2SAT 92–100
[2020-12-29 00:05] LABS: Troponin 5 6HR 27.04 ng/L (0-15)
[2020-12-29 00:13] LABS: Troponin 5 6HR Delta -13.96 ng/L (0-12)
[2020-12-29 03:42] LABS: Hemoglobin 9.3 g/dL (11.7-16.6); Mean Corpuscular HGB Conc 32.1 g/dL (30.0-36.0); Mean Corpuscular Hemoglobin 28.2 pg (28.0-34.0); Mean Corpuscular Volume 87.9 fl (80-94); Mean Platelet Volume 8.8 fL (7.4-10.4); Platelet Count 380 10^3/cmm (130-400); Red Cell Distribution Width 15.4 % (12.1-15.1); White Blood Count 18.6 10^3/uL (4.0-10.0)
[2020-12-29 04:08] LABS: Alanine Aminotransferase 15 U/L (0-41); Albumin Level 2.7 g/dL (3.5-5.2); Alkaline Phosphatase 61 IU/L (40-130); Anion Gap 17.8 (5-19); Aspartate Amino Transferase 18 U/L (0-40); Blood Urea Nitrogen 34 mg/dL (6-20); Calcium 8.4 mg/dL (8.5-10.5); Carbon Dioxide 18 mmol/L (22-29); Chloride 98 mmol/L (98-107); Globulin 2.8 g/dL (1.3-4.6); Glomerular Filtration Rate 45.3 mL/min (90-130); Glucose 136 mg/dL (65-115); Magnesium 1.9 mg/dL (1.7-2.3); Osmolality Calculated 278 mOsm/kg (285-295); Potassium 4.8 mmol/L (3.5-5.1); Sodium 129 mmol/L (136-145); Total Bilirubin 0.2 mg/dL (0.15-1.2); Total Protein 5.5 g/dL (6.6-8.7)
[2020-12-29 04:23] LABS: Slide Review Slide Review Perform
[2020-12-29 04:32] LABS: Absolute Neutrophil 16.7 10^3/cmm (1.4-6.5); Absolute Segmented Neutrophil 13.4 10/cmm (1.6-7.1); Band Neutrophils Absolute 3.3 10^3/cmm (0.0-1.2); Eosinophils 0 %; Giant Platelets Trace; Lymphocytes 5 %; Lymphocytes Absolute 0.9 10^3/cmm (1.2-3.4); Monocytes Absolute 0.9 10^3/cmm (0.1-0.6); Platelet Estimate Increased (Normal); Polychromasia Trace; Segmented Neutrophils 72 %; Total Cells Counted 100 (0-100)
[2020-12-29 04:33] LABS: Anisocytosis 1+; Burr Cells 2+
[2020-12-29 04:36] LABS: Pathology Refferal No
[2020-12-29] MEDS: hydrocortisone 100 mg/2 mL SDV 50 MG IVP ×3 (05:27→18:12)
--- NOTE | 2020-12-29 07:00 | USCV_ITS ---
Arelis Hardin Age: 55 Gender: M : 1965 Exam Date: 12/29/2020 07:36 Ordering Phys: Henry Corea MD Technologist: Exam Location: [facility]_ Indication: WALL MOTION BP: 125 / 83 HR: 97 Rhythm: Sinus Technical Quality: Adequate MEASUREMENTS (Male / Female) Normal Values 2D ECHO LV Diastolic Diameter PLAX 4.8 cm 4.2 - 5.9 / 3.9 - 5.3 cm LV Systolic Diameter PLAX 3.2 cm IVS Diastolic Thickness 0.9 cm 0.6 - 1.0 / 0.6 - 0.9 cm IVS Systolic Thickness 1.4 cm LVPW Diastolic Thickness 1.0 cm 0.6 - 1.0 / 0.6 - 0.9 cm LVPW Systolic Thickness 1.2 cm LVOT Diameter 2.1 cm LV Ejection Fraction 2D Teich 42.7 % LV Ejection Fraction MOD 2C 58.9 % LV Ejection Fraction 2C AL 59.2 % LA Diameter 3.5 cm LA Width 4.1 cm LA Height 4.3 cm RA Width 3.8 cm RA Height 4.5 cm FINDINGS Left Ventricle Normal left ventricular size and systolic function, EF 58 %. No gross wall motion abnormalities Right Ventricle The right ventricle is normal in size and function. Right Atrium The right atrium is normal in size. Left Atrium The left atrium is normal in size. Mitral Valve Mild mitral annular calcification. Aortic Valve The leaflets could not visualized well Tricuspid Valve Appears to be thickened. Morphology could not be delineated well Pulmonic Valve Pulmonic valve not well visualized. Pericardium Normal pericardium without effusion. Aorta Normal ascending aorta dimension. CONCLUSIONS Normal left ventricular size and systolic function, EF 58 %. No gross wall motion abnormalities. Mild mitral annular calcification. Normal chamber sizes. No significant pericardial effusion No obvious intracardiac masses. Technically difficult study because of the poor ultrasonic window. Compared to the study from 11/28/2020, there is slight improvement in the LV ejection fraction Dr Sarah Kay MD [facility] (Electronically Signed) Final Date: 31 December 2020 08:48 S
[2020-12-29] MEDS: piperacillin-tazobactam 3.375 GM in sodium chloride 0.9% (plus) 50 ML IV ×2 (08:23→17:12)
[2020-12-29] MEDS: heparin 5,000 unit/mL INJ 1 mL 5000 UNIT SUBCUT ×3 (08:24→22:36)
[2020-12-29] MEDS: gabapentin 300 mg Capsule 600 MG PO ×3 (08:24→20:34)
[2020-12-29] MEDS: sucralfate 1 gm Tablet PO ×2 (08:26→18:12)
[2020-12-29] MEDS: ticagrelor 90 mg Tablet PO ×2 (08:26→18:12)
[2020-12-29] MEDS: atorvastatin 40 mg Tablet 20 MG PO (08:26)
[2020-12-29] MEDS: doxycycline 100 mg Tablet PO ×2 (08:26→18:12)
[2020-12-29] MEDS: pantoprazole DR 40 mg Tablet PO ×2 (08:26→18:12)
[2020-12-29 08:52] LABS: Glucose Point of Care 104 mg/dL (70-110)
[2020-12-29] MEDS: ipratropium-albuterol 3 mL Neb INHALATION (08:52)
[2020-12-29] MEDS: budesonide 0.5 mg/2 mL Neb INHALATION (08:52)
[2020-12-29] MEDS: insulin lispro 100 unit/1 mL SUBCUT ×3 (12:01→20:34)
[2020-12-29 12:03] LABS: Glucose Point of Care 151 mg/dL (70-110)
[2020-12-29 13:44] LABS: Influenza A by IFA Negative (Negative)
[2020-12-29 13:45] LABS: Influenza B by IFA Negative (Negative)
[2020-12-29] MEDS: vancomycin 1,500 MG/300 ML PIGGYBACK 200 MG IV (15:11)
[2020-12-29] MEDS: HYDROcodone-acetaminophen 5-325 mg Tablet 1 TAB PO ×2 (15:11→22:44)
[2020-12-29 16:26] LABS: SARS Covid-2 Antigen Negative (Negative)
--- NOTE | 2020-12-29 17:23 | CTR_ITS ---
PROCEDURE INFORMATION: Exam: CT Abdomen And Pelvis Without Contrast Exam date and time: 12/29/2020 5:23 PM Age: 55 years old Clinical indication: Abdominal pain; Additional info: Persistent rlq pain TECHNIQUE: Imaging protocol: Computed tomography of the abdomen and pelvis without contrast. Radiation optimization: All CT scans at this facility use at least one of these dose optimization techniques: automated exposure control; mA and/or kV adjustment per patient size (includes targeted exams where dose is matched to clinical indication); or iterative reconstruction. COMPARISON: CT abdomen pelvis con [id number] 05/11/2018 9:58 AM RADIATION DOSE METRICS: Total DLP (mGy-cm): 1518.18 FINDINGS: Lungs: Emphysematous changes. Bibasilar atelectasis. Pleural spaces: Trace bilateral pleural effusions. Liver: Several hepatic cysts. Gallbladder and bile ducts: Cholecystectomy. Pancreas: Normal. No ductal dilation. Spleen: Normal. No splenomegaly. Adrenal glands: Normal. No mass. Kidneys and ureters: Polycystic kidneys. Stomach and bowel: Prominent fluid in the small bowel without dilation may reflect an enteritis. Diverticulosis without diverticulitis. Appendix: No evidence of appendicitis. Intraperitoneal space: Unremarkable. No free air. No significant fluid collection. Vasculature: Unremarkable. No abdominal aortic aneurysm. Lymph nodes: Unremarkable. No enlarged lymph nodes. Urinary bladder: Unremarkable as visualized. Reproductive: Unremarkable as visualized. Bones/joints: Unremarkable. No acute fracture. Soft tissues: Unremarkable. Other findings: Small amount of fluid in the pelvis, nonspecific. CT/CT abdomen pelvis [facility] [id number] IMPRESSION: 1. Prominent fluid in the small bowel without dilation may reflect an enteritis. 2. Trace bilateral pleural effusions. 3. Emphysematous changes. 4. Bibasilar atelectasis. 5. Several hepatic cysts. 6. Cholecystectomy. 7. Polycystic kidneys. 8. Small amount of fluid in the pelvis, nonspecific. 9. Diverticulosis without diverticulitis. Radiation Dose CTDIVOL = (mGy): DLP = 1518.18 (mGy-cm)
--- NOTE | 2020-12-29 19:07 | P.PN_ITS ---
Subjective Subjective: Interval history: He is having some discomfort in right lower quadrant. He is otherwise having some cough, malaise, headache, muscle aches, diarrhea. Vitals/I&O/Wt Last Vital Signs Temp 98.2 F 12/29/20 12:00 Pulse 97 12/29/20 18:00 Resp 14 12/29/20 18:00 BP 116/81 12/29/20 18:00 Pulse Ox 92 12/29/20 18:00 12/29/20 12/29/20 12/29/20 06:59 14:59 22:59 Intake Total 50 / 50 240 / 240 1050 / 1290 Output Total 380 / 380 1900 / 1900 1900 / 3800 Balance -330 / -330 -1660 / -1660 -850 / -2510 Weight last 48 hrs Weight 83.461 kg Weight 80.739 kg Physical Exam Const: COMMON NORMALS: no acute distress and patient oriented x3 HENMT: COMMON NORMALS: oropharynx normal Neck/C-Spine: COMMON NORMALS: no JVD Resp: COMMON NORMALS: normal respiratory effort PERCUSSION: other (Coarse breath sounds) Cardio: COMMON NORMALS: no JVD, regular rhythm, S1 normal heart sound present, S2 normal heart sound present and No murmurs present (Cardio) RHYTHM: regular rhythm HEART SOUNDS: S1 normal heart sound present and S2 normal heart sound present GI: COMMON NORMALS: Normal to inspection, nondistended, normoactive bowel sounds present, Soft to palpation and non-tender PALPATION: Yes Soft to palpation Extremity: COMMON NORMALS: no joint enlargement and no pedal edema Neuro: COMMON NORMALS: patient oriented x3 and moves all extremities Skin: COMMON NORMALS: no rashes or lesions noted GENERAL SKIN EXAM: no rashes or lesions noted Data : 12/29/20 02:57 12/29/20 02:57 Micro: Microbiology 12/28/20 18:57 Blood Culture - Preliminary Blood NEGATIVE TO DATE 12/28/20 17:05 Blood Culture - Preliminary Blood NEGATIVE TO DATE A&P Assessment and plan (1) Sepsis: Blood pressure improved. We will check COVID-19 PCR given atypical appearing pneumonia. Rapid flu. Given also symptoms of headache, body aches, diarrhea. Continue empiric antibiotics at this time. He has had diarrhea for some time, multiple watery bowel movements per day reported. Will check C. difficile. Due to right lower quadrant persistent pain, ordered CT abdomen pelvis. Continue management on medical floor. Status: Acute (2) Bilateral pneumonia: As above. Status: Acute (3) Acute kidney injury: Improving, approaching baseline. Status: Acute (4) Chronic use of steroids: Status: Acute (5) Adrenal insufficiency: Improved. Resume home prednisone. Taper down hydrocortisone. 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 Hyponatremia. Improving. Hypokalemia. Resolved. Attestations Medical Necessity Statement*: Continue treatment of multifocal pneumonia, improving sepsis, improving KAREN, with underlying CHF, improving adrenal insufficiency. 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
[2020-12-29 19:47] LABS: Glucose Point of Care 162 mg/dL (70-110)
[2020-12-30] VITALS (10 sets, daily range): BP systolic 118–166; BP diastolic 77–87; PULSE 64–116; RESP 17–22; TEMP 36.4–37.5; O2SAT 90–98
[2020-12-30] MEDS: piperacillin-tazobactam 3.375 GM in sodium chloride 0.9% (plus) 50 ML IV ×3 (00:24→19:40)
[2020-12-30 00:47] LABS: Glucose Point of Care 199 mg/dL (70-110)
--- NOTE | 2020-12-30 02:08 | PC.NURSE ---
Pt brought to floor by wheelchair. Pt ambulated to the bed with stand by assist, nurse oriented pt to room and call light.
[2020-12-30 05:46] LABS: Basophils % 0.1 %; Eosinophils # 0.1 10^3/uL (0.0-0.8); Eosinophils % 0.4 %; Hemoglobin 9.5 g/dL (11.7-16.6); Lymphocytes # 0.9 10^3/uL (0.8-4.8); Lymphocytes % 5.8 %; Mean Corpuscular HGB Conc 31.7 g/dL (30.0-36.0); Mean Corpuscular Hemoglobin 28.4 pg (28.0-34.0); Mean Corpuscular Volume 89.6 fl (80-94); Mean Platelet Volume 8.7 fL (7.4-10.4); Monocytes # 0.8 10^3/uL (0.2-0.9); Monocytes % 5.2 %; Neutrophils # 12.83 10^3/uL (1.8-7.7); Neutrophils % 87.8 %; Nucleated Red Blood Cells % 0 %; Platelet Count 384 10^3/cmm (130-400); Red Blood Count 3.35 10^6/uL (4.1-5.3); Red Cell Distribution Width 15.5 % (12.1-15.1); White Blood Count 14.6 10^3/uL (4.0-10.0)
[2020-12-30 06:12] LABS: Alanine Aminotransferase 15 U/L (0-41); Albumin Level 2.9 g/dL (3.5-5.2); Alkaline Phosphatase 58 IU/L (40-130); Anion Gap 15.6 (5-19); Aspartate Amino Transferase 18 U/L (0-40); Blood Urea Nitrogen 31 mg/dL (6-20); Calcium 8.3 mg/dL (8.5-10.5); Carbon Dioxide 20 mmol/L (22-29); Chloride 104 mmol/L (98-107); Globulin 3.3 g/dL (1.3-4.6); Glomerular Filtration Rate 48.8 mL/min (90-130); Glucose 67 mg/dL (65-115); Osmolality Calculated 287 mOsm/kg (285-295); Potassium 3.6 mmol/L (3.5-5.1); Sodium 136 mmol/L (136-145); Total Bilirubin 0.2 mg/dL (0.15-1.2); Total Protein 6.2 g/dL (6.6-8.7)
[2020-12-30] MEDS: hydrocortisone 100 mg/2 mL SDV 50 MG IVP (06:36)
[2020-12-30 06:46] LABS: Glucose Point of Care 74 mg/dL (70-110)
[2020-12-30] MEDS: vancomycin 1,500 MG/300 ML PIGGYBACK 200 MG IV (09:01)
[2020-12-30] MEDS: doxycycline 100 mg Tablet PO ×2 (09:15→18:26)
[2020-12-30] MEDS: ticagrelor 90 mg Tablet PO ×2 (09:18→18:26)
[2020-12-30] MEDS: pantoprazole DR 40 mg Tablet PO ×2 (09:18→18:26)
[2020-12-30] MEDS: gabapentin 300 mg Capsule 600 MG PO ×3 (09:18→20:37)
[2020-12-30] MEDS: atorvastatin 40 mg Tablet 20 MG PO (09:19)
[2020-12-30] MEDS: sucralfate 1 gm Tablet PO ×2 (09:20→18:26)
[2020-12-30] MEDS: heparin 5,000 unit/mL INJ 1 mL 5000 UNIT SUBCUT ×3 (09:21→23:53)
[2020-12-30] MEDS: predniSONE 5 mg Tablet 10 MG PO (09:21)
[2020-12-30] MEDS: HYDROcodone-acetaminophen 5-325 mg Tablet 1 TAB PO (10:53)
[2020-12-30] MEDS: benzonatate 100 mg Capsule PO (10:53)
[2020-12-30 11:53] LABS: Glucose Point of Care 128 mg/dL (70-110)
[2020-12-30] MEDS: acetaminophen 325 mg Tablet 650 MG PO (16:45)
[2020-12-30 16:48] LABS: Glucose Point of Care 138 mg/dL (70-110)
[2020-12-30] MEDS: temazepam 15 mg Capsule PO (19:44)
--- NOTE | 2020-12-30 19:47 | PC.NURSE ---
i reported low temp 97.5 to nurse
[2020-12-30 20:40] LABS: Glucose Point of Care 189 mg/dL (70-110)
[2020-12-30] MEDS: insulin lispro 100 unit/1 mL SUBCUT (20:51)
--- NOTE | 2020-12-30 21:30 | PM.PN ---
Subjective Subjective: Interval history: States he is feeling very rough, slightly better, but still with cough, malaise, headache. Expresses some postural headache, orthostatic blood pressures were reported checked, and without decrease. Denies any recent trauma. Vitals/I&O/Wt Last Vital Signs Temp 97.5 F L 12/30/20 19:46 Pulse 68 12/30/20 19:46 Resp 18 12/30/20 19:46 BP 137/87 12/30/20 19:46 Pulse Ox 94 12/30/20 19:46 12/30/20 12/30/20 12/30/20 06:59 14:59 22:59 Intake Total 290 / 2280.000 780 / 780 170 / 950 Output Total 600 / 4600 100 / 100 Balance -310 / -2320.000 680 / 680 170 / 850 Weight last 48 hrs Weight 83.461 kg Physical Exam Const: COMMON NORMALS: no acute distress, patient oriented x3 and alert GENERAL APPEARANCE: cooperative and ill appearing ORIENTATION/CONSCIOUSNESS: Yes awake HENMT: COMMON NORMALS: oropharynx normal Neck/C-Spine: COMMON NORMALS: no JVD Resp: COMMON NORMALS: normal respiratory effort AUSCULTATION: wheezes right lower (Mild) PERCUSSION: other (Coarse breath sounds) Cardio: COMMON NORMALS: no JVD, regular rhythm, S1 normal heart sound present, S2 normal heart sound present and No murmurs present (Cardio) RHYTHM: regular rhythm HEART SOUNDS: S1 normal heart sound present and S2 normal heart sound present GI: COMMON NORMALS: Normal to inspection, nondistended, normoactive bowel sounds present, Soft to palpation and non-tender PALPATION: Yes Soft to palpation Extremity: COMMON NORMALS: no joint enlargement and no pedal edema Neuro: COMMON NORMALS: patient oriented x3 and moves all extremities SENSORIUM/ORIENTATION: Yes alert Skin: COMMON NORMALS: no rashes or lesions noted GENERAL SKIN EXAM: no rashes or lesions noted Data : 12/30/20 05:04 12/30/20 05:04 Micro: Microbiology 12/28/20 18:57 Blood Culture - Preliminary Blood NEGATIVE TO DATE 12/28/20 17:05 Blood Culture - Preliminary Blood NEGATIVE TO DATE A&P Assessment and plan (1) Sepsis: Objectively sepsis is improving, leukocytosis has been decreasing, tachycardia is improving/resolving. However, he still feels quite malaised. Persistent cough. Headache. Does not feel ready to return home. He has been following up with pulmonology and ID due to also recurrent pneumonias. Has had a number of studies performed in the last several months. Depending on his condition, please consider reaching out to his infectious disease specialist and visual basic .net developer for additional recommendations or consultation if available. Hypotension has resolved. Adrenal sufficiency better. We are weaning him off of steroids, held hydrocortisone. Resumed his prednisone. Monitor blood pressure. Follow-up pending COVID-19 PCR given atypical appearing pneumonia. Viral respiratory panel. Given also symptoms of headache, body aches, diarrhea. Continue empiric antibiotics at this time with Zosyn and vancomycin. He has had diarrhea for some time, multiple watery bowel movements per day reported. Requested C. difficile PCR, but so far no sample as diarrhea does appear to have resolved. Due to right lower quadrant persistent pain, CT abdomen pelvis was performed, although no explanation of his symptoms. Noted prominent fluid in the small bowel without dilation possibly reflecting enteritis. Trace bilateral pleural effusions. Emphysematous changes. Bibasilar atelectasis. Severe hepatic cyst. Cholecystectomy. Polycystic kidney. Small amount of fluid in the pelvis. Diverticulosis without diverticulitis. Endorses pain in the right groin persists after recent angiography. I could not palpate a pulsatile mass, there is no hematoma apparent on examination and no ecchymosis. If symptoms persist, consider additional ultrasound/duplex imaging. Status: Acute (2) Bilateral pneumonia: As above. Status: Acute (3) Acute kidney injury: Improving, approaching baseline. Status: Acute (4) Chronic use of steroids: Status: Acute (5) Adrenal insufficiency: Improved. Weaning off hydrocortisone. Resumed home prednisone. Status: Acute (6) COPD (chronic obstructive pulmonary disease): Status: Acute (7) CHF (congestive heart failure): TTE pending Status: Acute (8) Type 2 diabetes mellitus: SSI Status: Acute Qualifiers: Diabetes mellitus alf insulin use: without alf use Diabetes mellitus complication status: with hyperglycemia Qualified Code(s): E11.65 - Type 2 diabetes mellitus with hyperglycemia Additional A&P Information Arelis Hardin is a 55 year old male with significant past medical history of hypertension, hyperlipidemia, diabetes, SLE, chronic steroids, polycystic kidney disease, CKD, COPD, and recent PCI presents emerged department due to generalized malaise, shortness of breath, increasing productive cough with yellow mucus. Hyponatremia. Resolved. Hypokalemia. Resolved. Attestations Medical Necessity Statement*: Continue admission for assessment of management of improving sepsis, weaning of stress dose steroids with adrenal sufficiency, treatment of bilateral atypical pneumonia, in the setting of recently recurrent pneumonia. 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
[2020-12-31] VITALS (16 sets, daily range): BP systolic 136–163; BP diastolic 78–84; PULSE 62–120; RESP 17–26; TEMP 36.6–37.2; O2SAT 90–98
[2020-12-31] MEDS: benzonatate 100 mg Capsule PO ×3 (02:58→20:17)
[2020-12-31] MEDS: vancomycin 1,500 MG/300 ML PIGGYBACK 200 MG IV ×2 (03:08→20:42)
[2020-12-31] MEDS: ipratropium-albuterol 3 mL Neb INHALATION ×5 (03:08→20:54)
[2020-12-31] MEDS: piperacillin-tazobactam 3.375 GM in sodium chloride 0.9% (plus) 50 ML IV ×3 (05:00→19:45)
[2020-12-31] MEDS: HYDROcodone-acetaminophen 5-325 mg Tablet 1 TAB PO ×3 (05:14→20:16)
[2020-12-31 06:26] LABS: Basophils % 0.1 %; Eosinophils # 0.1 10^3/uL (0.0-0.8); Eosinophils % 0.5 %; Hematocrit 29.4 % (42.0-52.0); Hemoglobin 9.6 g/dL (11.7-16.6); Lymphocytes # 0.8 10^3/uL (0.8-4.8); Mean Corpuscular HGB Conc 32.7 g/dL (30.0-36.0); Mean Corpuscular Hemoglobin 28.6 pg (28.0-34.0); Mean Corpuscular Volume 87.5 fl (80-94); Mean Platelet Volume 8.6 fL (7.4-10.4); Monocytes % 6.9 %; Neutrophils # 12.78 10^3/uL (1.8-7.7); Neutrophils % 85.6 %; Nucleated Red Blood Cells % 0 %; Platelet Count 423 10^3/cmm (130-400); Red Blood Count 3.36 10^6/uL (4.1-5.3); Red Cell Distribution Width 15.4 % (12.1-15.1); White Blood Count 14.9 10^3/uL (4.0-10.0)
[2020-12-31 06:42] LABS: Glucose Point of Care 93 mg/dL (70-110)
[2020-12-31 06:47] LABS: Alanine Aminotransferase 15 U/L (0-41); Albumin Level 2.9 g/dL (3.5-5.2); Alkaline Phosphatase 52 IU/L (40-130); Anion Gap 16.5 (5-19); Aspartate Amino Transferase 17 U/L (0-40); Blood Urea Nitrogen 29 mg/dL (6-20); Calcium 8.1 mg/dL (8.5-10.5); Carbon Dioxide 18 mmol/L (22-29); Chloride 101 mmol/L (98-107); Globulin 3.3 g/dL (1.3-4.6); Glomerular Filtration Rate 45.3 mL/min (90-130); Glucose 71 mg/dL (65-115); Osmolality Calculated 278 mOsm/kg (285-295); Potassium 3.5 mmol/L (3.5-5.1); Sodium 132 mmol/L (136-145); Total Bilirubin 0.2 mg/dL (0.15-1.2); Total Protein 6.2 g/dL (6.6-8.7)
[2020-12-31 08:26] LABS: Quest SARS-CoV-2 RNA NOT DETECTED (NOT DETECTED)
[2020-12-31 08:29] LABS: Glucose Point of Care 84 mg/dL (70-110)
[2020-12-31] MEDS: doxycycline 100 mg Tablet PO ×2 (08:29→17:25)
[2020-12-31] MEDS: atorvastatin 40 mg Tablet 20 MG PO (08:29)
[2020-12-31] MEDS: pantoprazole DR 40 mg Tablet PO ×2 (08:29→17:25)
[2020-12-31] MEDS: heparin 5,000 unit/mL INJ 1 mL 5000 UNIT SUBCUT ×3 (08:29→22:42)
[2020-12-31] MEDS: sucralfate 1 gm Tablet PO ×2 (08:29→17:25)
[2020-12-31] MEDS: predniSONE 5 mg Tablet 10 MG PO (08:30)
[2020-12-31] MEDS: gabapentin 300 mg Capsule 600 MG PO ×3 (08:30→20:16)
[2020-12-31] MEDS: ticagrelor 90 mg Tablet PO ×2 (08:50→17:28)
[2020-12-31] MEDS: budesonide 0.5 mg/2 mL Neb INHALATION ×2 (09:17→20:54)
[2020-12-31] MEDS: nicotine 21 mg Patch 1 PATCH TRANSDERMA (10:51)
[2020-12-31 13:18] LABS: Glucose Point of Care 139 mg/dL (70-110)
--- NOTE | 2020-12-31 13:21 | PC.SOCIAL ---
Pg 2 IMM Explained tp pt Pg 2 IMM. Copy provided. No questions voiced. Initialed, dated, & timed a copy & placed in chart.
[2020-12-31] MEDS: FUROsemide 40 mg Tablet PO (14:21)
[2020-12-31] MEDS: metoprolol succinate ER (24 HR) 50 mg Tablet PO ×2 (14:22→17:25)
[2020-12-31 15:25] LABS: Hepatitis A Antibody IgM Non-Reactive (Nonreactive); Hepatitis B Core AB, Total Non-Reactive (Nonreactive); Hepatitis B Surface Antigen Non-Reactive (Nonreactive); Hepatitis C Virus Antibody Non-Reactive (Nonreactive)
[2020-12-31 15:47] LABS: Hepatitis B Surface AB < 3.5 (11.5-1000)
[2020-12-31 16:07] LABS: HIV 1 & 2 Antibody Non-Reactive (Non-Reactiv); HIV 1 & 2 Antigen Non-Reactive (Non-Reactiv)
--- NOTE | 2020-12-31 16:16 | P.PN_ITS ---
Subjective Subjective: Interval history: Hospital course, labs appreciated. Currently patient on room air satting 96%. Denies any nausea, wanting, headache. Does complain of headache with cough. Complaining of pain in the chest requesting a repeat bronchoscopy so 'fluid from the lungs could be signed out again '. We did discuss that unfortunately his work-up from recent bronchoscopy is not back yet and his blood work from ID office is not back as well. We did discuss that right now he is under investigation for reason for possible atypical versus fungal pneumonia which could take up to few weeks to come back. Patient verbalized understanding. Denies any chest pain. Has remained hemodynamically stable and afebrile. Vitals/I&O/Wt Last Vital Signs Temp 99.0 F 12/31/20 11:38 Pulse 105 H 12/31/20 15:58 Resp 20 H 12/31/20 15:58 BP 140/78 12/31/20 11:38 Pulse Ox 96 12/31/20 15:58 12/31/20 12/31/20 12/31/20 06:59 14:59 22:59 Intake Total 490 / 1440 1010 / 1010 Output Total 980 / 1080 Balance -490 / 360 1010 / 1010 Weight last 48 hrs Weight 83.461 kg Physical Exam Narrative: EXAM NARRATIVE: The patient is awake and alert, oriented x4. Mild distress. Mood and affect are appropriate. Responses are adequate. Skin is warm and dry. Extremities Eyes PERRL, extraocular muscles are intact. No rash on the face. Neck supple. No JVD Lungs bilateral coarse breath sounds and mild bilateral crackles mostly localized in the upper lobes. No respiratory distress currently. Heart S1, S2, regular Abdomen is soft, nontender, bowel sounds are present Extremities bilateral edema. No cyanosis no calf tenderness bilaterally. Data : 12/31/20 06:10 12/31/20 06:10 A&P Assessment and plan (1) Sepsis: Objectively sepsis is improving, leukocytosis has been decreasing, tachycardia is improving/resolving. However, he still feels quite malaised. Persistent cough. Headache. Does not feel ready to return home. He has been following up with pulmonology and ID due to also recurrent pneumonias. Has had a number of studies performed in the last several months. Depending on his condition, please consider reaching out to his infectious disease specialist and cork insulator helper for additional recommendations or consultation if available. Hypotension has resolved. Adrenal sufficiency better. We are weaning him off of steroids, held hydrocortisone. Resumed his prednisone. Monitor blood pressure. Follow-up pending COVID-19 PCR given atypical appearing pneumonia. Viral respiratory panel. Given also symptoms of headache, body aches, diarrhea. Continue empiric antibiotics at this time with Zosyn and vancomycin. He has had diarrhea for some time, multiple watery bowel movements per day reported. Requested C. difficile PCR, but so far no sample as diarrhea does appear to have resolved. Due to right lower quadrant persistent pain, CT abdomen pelvis was performed, although no explanation of his symptoms. Noted prominent fluid in the small bowel without dilation possibly reflecting enteritis. Trace bilateral pleural effusions. Emphysematous changes. Bibasilar atelectasis. Severe hepatic cyst. Cholecystectomy. Polycystic kidney. Small amount of fluid in the pelvis. Diverticulosis without diverticulitis. Endorses pain in the right groin persists after recent angiography. I could not palpate a pulsatile mass, there is no hematoma apparent on examination and no ecchymosis. If symptoms persist, consider additional ultrasound/duplex imaging. Status: Acute (2) Bilateral pneumonia: As above. Status: Acute (3) Acute kidney injury: Improving, approaching baseline. Status: Acute (4) Chronic use of steroids: Status: Acute (5) Adrenal insufficiency: Improved. Weaning off hydrocortisone. Resumed home prednisone. Status: Acute (6) COPD (chronic obstructive pulmonary disease): Status: Acute (7) CHF (congestive heart failure): TTE pending Status: Acute (8) Type 2 diabetes mellitus: SSI Status: Acute Qualifiers: Diabetes mellitus technician terminal and repeater insulin use: without senior living use Diabetes mellitus complication status: with hyperglycemia Qualified Code(s): E11.65 - Type 2 diabetes mellitus with hyperglycemia Additional A&P Information Arelis Hardin is a 55 year old male with significant past medical history of hypertension, hyperlipidemia, diabetes, SLE, chronic steroids, polycystic kidney disease, CKD, COPD, and recent PCI presents emerged department due to generalized malaise, shortness of breath, increasing productive cough with yellow mucus. Plan for today: Continue antibiotics with doxycycline, Zosyn, vancomycin. Await COVID-19 results. Will reorder atypical pneumonia work-up which was supposed to be sent out as an outpatient but somehow was missed at [facility]. Will check HIV, hepatitis panel, Fungitell, histoplasma antigen, Aspergillus antigen, pneumocystis PCR, 3 subsequent every 8 hours sample for Mycobacterium. Start patient on I-S and Acapella. Continue with home dose of prednisone. Restart home dose of antihypertensives including metoprolol, lisinopril, Imdur, Lasix 40 mg oral daily. Start patient on nicotine patch. Goal blood pressure less than 140/90 mmHg. Attestations Medical Necessity Statement*: Requires further hospitalization for management and further work-up of atypical pneumonia while home antihypertensives are started. Time Spent in Patient Care: Greater than 35 minutes (>than 50% of time spent in counselling and/or direct pt care on unit) . 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
[2020-12-31 17:18] LABS: Glucose Point of Care 211 mg/dL (70-110)
[2020-12-31] MEDS: insulin lispro 100 unit/1 mL SUBCUT (17:25)
[2020-12-31 20:29] LABS: Vancomycin Trough 19.5 ug/mL (10-15)
[2020-12-31] MEDS: temazepam 15 mg Capsule PO (20:32)
--- NOTE | 2020-12-31 20:42 | PC.NURSE ---
Patient vanc trough resulted high, called pharmacy verified to go ahead and administer 2100 dose.
[2020-12-31 20:48] LABS: Glucose Point of Care 110 mg/dL (70-110)
[2021-01-01] VITALS (13 sets, daily range): BP systolic 110–142; BP diastolic 75–88; PULSE 91–123; RESP 17–24; TEMP 36.6–36.8; O2SAT 94–97
[2021-01-01] MEDS: piperacillin-tazobactam 3.375 GM in sodium chloride 0.9% (plus) 50 ML IV (03:11)
[2021-01-01] MEDS: ipratropium-albuterol 3 mL Neb INHALATION ×3 (03:39→15:52)
[2021-01-01] MEDS: HYDROcodone-acetaminophen 5-325 mg Tablet 1 TAB PO ×2 (03:54→12:27)
[2021-01-01] MEDS: heparin 5,000 unit/mL INJ 1 mL 5000 UNIT SUBCUT ×2 (06:34→16:03)
[2021-01-01 06:38] LABS: Glucose Point of Care 96 mg/dL (70-110)
[2021-01-01 06:48] LABS: Basophils # 0.1 10^3/uL (0.0-0.1); Basophils % 0.4 %; Eosinophils # 0.1 10^3/uL (0.0-0.8); Eosinophils % 0.9 %; Hematocrit 29.6 % (42.0-52.0); Hemoglobin 9.8 g/dL (11.7-16.6); Lymphocytes # 0.9 10^3/uL (0.8-4.8); Mean Corpuscular HGB Conc 33.1 g/dL (30.0-36.0); Mean Corpuscular Hemoglobin 28.2 pg (28.0-34.0); Mean Corpuscular Volume 85.1 fl (80-94); Mean Platelet Volume 8.7 fL (7.4-10.4); Monocytes # 1.3 10^3/uL (0.2-0.9); Monocytes % 9.2 %; Neutrophils # 11.45 10^3/uL (1.8-7.7); Neutrophils % 80.2 %; Nucleated Red Blood Cells % 0 %; Platelet Count 482 10^3/cmm (130-400); Red Blood Count 3.48 10^6/uL (4.1-5.3); Red Cell Distribution Width 15.3 % (12.1-15.1); White Blood Count 14.3 10^3/uL (4.0-10.0)
[2021-01-01 06:50] LABS: Alanine Aminotransferase 17 U/L (0-41); Alkaline Phosphatase 63 IU/L (40-130); Anion Gap 20.2 (5-19); Aspartate Amino Transferase 17 U/L (0-40); Blood Urea Nitrogen 27 mg/dL (6-20); Calcium 8.6 mg/dL (8.5-10.5); Carbon Dioxide 20 mmol/L (22-29); Chloride 92 mmol/L (98-107); Globulin 3.5 g/dL (1.3-4.6); Glomerular Filtration Rate 39.5 mL/min (90-130); Glucose 78 mg/dL (65-115); Osmolality Calculated 272 mOsm/kg (285-295); Potassium 3.2 mmol/L (3.5-5.1); Sodium 129 mmol/L (136-145); Total Bilirubin 0.2 mg/dL (0.15-1.2); Total Protein 6.5 g/dL (6.6-8.7)
[2021-01-01] MEDS: budesonide 0.5 mg/2 mL Neb INHALATION (09:44)
[2021-01-01] MEDS: sucralfate 1 gm Tablet PO (10:04)
[2021-01-01] MEDS: isosorbide mononitrate ER 30 mg Tablet PO (10:04)
[2021-01-01] MEDS: atorvastatin 40 mg Tablet 20 MG PO (10:04)
[2021-01-01] MEDS: gabapentin 300 mg Capsule 600 MG PO ×2 (10:05→16:03)
[2021-01-01] MEDS: FUROsemide 40 mg Tablet PO (10:05)
[2021-01-01] MEDS: pantoprazole DR 40 mg Tablet PO (10:05)
[2021-01-01] MEDS: metoprolol succinate ER (24 HR) 50 mg Tablet PO (10:05)
[2021-01-01] MEDS: ferrous sulfate EC 325 mg Tablet PO (10:05)
[2021-01-01] MEDS: doxycycline 100 mg Tablet PO (10:05)
[2021-01-01] MEDS: nicotine 21 mg Patch 1 PATCH TRANSDERMA (10:06)
[2021-01-01] MEDS: predniSONE 5 mg Tablet 10 MG PO (10:06)
[2021-01-01] MEDS: lisinopril 20 mg Tablet PO (10:06)
[2021-01-01] MEDS: ticagrelor 90 mg Tablet PO (10:07)
[2021-01-01 11:57] LABS: Glucose Point of Care 122 mg/dL (70-110)
--- NOTE | 2021-01-01 13:54 | CT_ITS ---
WS: [id number] CT HEAD TECHNIQUE: Noncontrast CT of the head obtained from the skullbase to the vertex. CLINICAL INFORMATION: headaches COMPARISON: MRI 2018. CT 2017 DLP: 873.[address] scans at [facility] use at least one of these dose optimization techniques: automated e xposure control; mA and/or kV adjustment per patient size (includes targeted exams where dose is matc hed to clinical indication); or iterative reconstruction. FINDINGS: No evidence of intracranial hemorrhage or mass effect. Ventricular system and basal cisterns are sewell nt. Mild small vessel changes with mild parenchymal volume loss. No extra-axial fluid collections. No evidence of mass or mass effect. Normal barker-white differentiation. Air-fluid level in the right maxillary sinus consistent with sinusitis. Fluid and mucosal thickening in the right sphenoid sinus. Mild mucosal thickening ethmoid air cells. Postoperative changes in the anterior frontal nasal soft tissues. CT/CT head wo con* [id number] IMPRESSION: 1. No evidence of intracranial hemorrhage or mass effect. 2. Mild small vessel changes. Mild parenchymal volume loss. 3. Right maxillary sinusitis.
[2021-01-01] MEDS: vancomycin 1,500 MG/300 ML PIGGYBACK 200 MG IV (16:03)
[2021-01-01] MEDS: benzonatate 100 mg Capsule PO (16:03)
[2021-01-01] MEDS: acetaminophen 325 mg Tablet 650 MG PO (16:04)
--- NOTE | 2021-01-01 16:36 | P.DS_ITS ---
Discharge Providers Date of Admission: 12/28/20 20:36 Date of Discharge: January 01, 2021 Attending Provider at Admission: Henry Corea Attending Provider at Discharge: Miguel Aguilera MD Primary Care Provider: VAISHALI Alcantara Diagnoses at Discharge Discharge Diagnosis (1) Sepsis: Status: Acute (2) Bilateral pneumonia: Status: Acute (3) Acute kidney injury: Status: Acute (4) Chronic use of steroids: Status: Acute (5) Adrenal insufficiency: Status: Acute (6) COPD (chronic obstructive pulmonary disease): Status: Acute (7) CHF (congestive heart failure): Status: Acute (8) Type 2 diabetes mellitus: Status: Acute Qualifiers: Diabetes mellitus remote computer terminal operator insulin use: without half-way use Diabetes mellitus complication status: with hyperglycemia Qualified Code(s): E11.65 - Type 2 diabetes mellitus with hyperglycemia Reason for Visit Reason for Visit: N/V/ LOW BLOOD SUGAR Hospital Course Hospital Course History as per H&P. Arelis Hardin is a 55 year old male with significant past medical history of hypertension, hyperlipidemia, diabetes, SLE, chronic steroids, polycystic kidney disease, CKD, COPD, and recent PCI presents emerged department due to generalized malaise, shortness of breath, increasing productive cough with yellow mucus. He reports that he was recovering, albeit slowly, from his hospitalization for heart cath at the start this month including complaint of chronic pneumonia when he began to get more ill. Patient has been worked up as an outpatient with pulmonology and ID for atypical pneumonia and underwent bronchoscopy on December 25 and most of the results are still pending. Initially patient was started on stress dose steroids and admitted to ICU. Patient responded well to the treatment and transfer to [facility] floor within 24 hours for admission. His steroids were tapered down to his home dose of 10 mg daily. During hospitalization patient remained on room air saturating 94%. He continued to have occasional episodes of coughing bouts. He continued to complain of occasional chest pain associated with cough and headaches associated with cough. CT head was done which was negative for any acute abnormality. Multiple work-up for atypical pneumonia including Fungitell, Aspergillus antigen, histoplasma antigen, Mycobacterium 3 samples were sent out. Patient is been discharged in hemodynamically stable condition with advised to follow-up with pulmonology within next 2 weeks to review the results from multiple investigation which have been sent out to outside lab. He is advised to continue taking his previous cardiac medications. He is advised to continue taking hydroxychloroquine, Imdur and prednisone. Physical Exam Narrative: EXAM NARRATIVE: The patient is awake and alert, oriented x4. Mild distress. Mood and affect are appropriate. Responses are adequate. Skin is warm and dry. Extremities Eyes PERRL, extraocular muscles are intact. No rash on the face. Neck supple. No JVD Lungs bilateral coarse breath sounds and mild bilateral crackles mostly localized in the upper lobes. No respiratory distress currently. Heart S1, S2, regular Abdomen is soft, nontender, bowel sounds are present Extremities bilateral edema. No cyanosis no calf tenderness bilaterally. Discharge Data Data Completed and Pending: Completed Studies During Hospitalization Category Date Time Status CT abdomen pelvis wo con [id number] Rout ine Cat Scan 12/29/20 17:[address] head wo con* 7 0450 Routine Cat Scan 01/01/21 13:54 Completed XR chest 1V vj ble [id number] Urgent Exams 12/28/20 16:48 Completed CV. echo limited [id number] Routine Ultrasound 12/29/20 07:00 Completed Pending at discharge Category Date Time Status Aspergillus AG,EI A,Serum Routine Lab 12/31/20 14:27 Received Blood Culture Sta t Lab 12/28/20 18:57 Results Clostridioides Di fficile PCR Routin e Lab 12/29/20 12:38 Uncollected Fungitell Glucan Assay Routine Lab 12/31/20 14:27 Received Histoplasma Quant itative AG Routine Lab 12/31/20 14:30 Received Mycobacteria, Cul ture w/Fluor Routi ne Lab 12/31/20 14:27 Received Mycobacteria, Cul ture w/Fluor Routi ne Lab 12/31/20 20:00 Received Mycobacteria, Cul ture w/Fluor Routi ne Lab 01/01/21 12:20 Received Pneumocystis jiro veci Qual PCR Rout ine Lab 12/31/20 16:10 Received Respiratory Viral Panel PCR Routine Lab 01/01/21 12:25 Received Labs from last 24 hours 01/01/21 01/01/21 01/01/21 12:25 11:01 06:31 WBC RBC Hgb Hct MCV MCH MCHC RDW Plt Count MPV Neut % (Auto) Lymph % (Auto) [place] % (Auto) Eos % (Auto) Baso % (Auto) Neut # (Auto) Lymph # (Auto) [place] # (Auto) Eos # (Auto) Baso # (Auto) Nucleated RBC % (a uto) Nucleated RBCs # Sodium Potassium Chloride Carbon Dioxide Anion Gap BUN Creatinine GFR Calculation Glucose POC Glucose 122 H 96 Calculated Osmolal ity Calcium Total Bilirubin AST ALT Alkaline Phosphata se Total Protein Albumin Globulin RSV Nasal Swab Pending RSV Nasal Swab Int Cntl Pending Vancomycin Trough Adenovirus (PCR) Pending Human Metapneumovi r PCR Pending Influenza A (RT-PC R) Pending Influenza A (H1) P CR Pending Influenza A (H3) P CR Pending Influenza B (RT-PC R) Pending Parainfluenzae Typ e 1 Pending Parainfluenzae Typ e 2 Pending Parainfluenzae Typ e 3 Pending RSV Ab Comment Pending Rhinovirus (PCR) Pending Beta-(1,3)-D-Gluca n B-(1,3)-D-Glucan I ntr 01/01/21 01/01/21 12/31/20 06:00 06:00 20:39 WBC 14.3 H RBC 3.48 L Hgb 9.8 L Hct 29.6 L MCV 85.1 MCH 28.2 MCHC 33.1 RDW 15.3 H Plt Count 482 H MPV 8.7 Neut % (Auto) 80.2 Lymph % (Auto) 6.0 [place] % (Auto) 9.2 Eos % (Auto) 0.9 Baso % (Auto) 0.4 Neut # (Auto) 11.45 H Lymph # (Auto) 0.9 [place] # (Auto) 1.3 H Eos # (Auto) 0.1 Baso # (Auto) 0.1 Nucleated RBC % (a uto) 0 Nucleated RBCs # 0.0 Sodium 129 L Potassium 3.2 L Chloride 92 L Carbon Dioxide 20 L Anion Gap 20.2 H BUN 27 H Creatinine 1.8 H GFR Calculation 39.5 L Glucose 78 POC Glucose 110 Calculated Osmolal ity 272 L Calcium 8.6 Total Bilirubin 0.2 AST 17 ALT 17 Alkaline Phosphata se 63 Total Protein 6.5 L Albumin 3.0 L Globulin 3.5 RSV Nasal Swab RSV Nasal Swab Int Cntl Vancomycin Trough Adenovirus (PCR) Human Metapneumovi r PCR Influenza A (RT-PC R) Influenza A (H1) P CR Influenza A (H3) P CR Influenza B (RT-PC R) Parainfluenzae Typ e 1 Parainfluenzae Typ e 2 Parainfluenzae Typ e 3 RSV Ab Comment Rhinovirus (PCR) Beta-(1,3)-D-Gluca n B-(1,3)-D-Glucan I ntrp 12/31/20 12/31/20 12/31/20 19:54 16:39 14:27 WBC RBC Hgb Hct MCV MCH MCHC RDW Plt Count MPV Neut % (Auto) Lymph % (Auto) [place] % (Auto) Eos % (Auto) Baso % (Auto) Neut # (Auto) Lymph # (Auto) [place] # (Auto) Eos # (Auto) Baso # (Auto) Nucleated RBC % (a uto) Nucleated RBCs # Sodium Potassium Chloride Carbon Dioxide Anion Gap BUN Creatinine GFR Calculation Glucose POC Glucose 211 H Calculated Osmolal ity Calcium Total Bilirubin AST ALT Alkaline Phosphata se Total Protein Albumin Globulin RSV Nasal Swab RSV Nasal Swab Int Cntl Vancomycin Trough 19.5 H Adenovirus (PCR) Human Metapneumovi r PCR Influenza A (RT-PC R) Influenza A (H1) P CR Influenza A (H3) P CR Influenza B (RT-PC R) Parainfluenzae Typ e 1 Parainfluenzae Typ e 2 Parainfluenzae Typ e 3 RSV Ab Comment Rhinovirus (PCR) Beta-(1,3)-D-Gluca n Pending B-(1,3)-D-Glucan I ntrp Pending Addt'l Data from Hospital Stay: Laboratory Results WBC 14.3 10^3/uL (4.0 -10.0) H 01/01/21 06:00 RBC 3.48 10^6/uL (4.1 -5.3) L 01/01/21 06:00 Hgb 9.8 g/dL (11.7-16 .6) L 01/01/21 06:00 Hct 29.6 % (42.0-52.0 ) L 01/01/21 06:00 MCV 85.1 fl (80-94) 01/01/21 06:00 MCH 28.2 pg (28.0-34. 0) 01/01/21 06:00 MCHC 33.1 g/dL (30.0-3 6.0) 01/01/21 06:00 RDW 15.3 % (12.1-15.1 ) H 01/01/21 06:00 Plt Count 482 10^3/cmm (130 -400) H 01/01/21 06:00 MPV 8.7 fL (7.4-10.4) 01/01/21 06:00 Neut % (Auto) 80.2 % 01/01/21 06:00 Lymph % (Auto) 6.0 % 01/01/21 06:00 [place] % (Auto) 9.2 % 01/01/21 06:00 Eos % (Auto) 0.9 % 01/01/21 06:00 Baso % (Auto) 0.4 % 01/01/21 06:00 Neut # (Auto) 11.45 10^3/uL (1. 8-7.7) H 01/01/21 06:00 Lymph # (Auto) 0.9 10^3/uL (0.8- 4.8) 01/01/21 06:00 [place] # (Auto) 1.3 10^3/uL (0.2- 0.9) H 01/01/21 06:00 Eos # (Auto) 0.1 10^3/uL (0.0- 0.8) 01/01/21 06:00 Baso # (Auto) 0.1 10^3/uL (0.0- 0.1) 01/01/21 06:00 Nucleated RBC % (a uto) 0 % 01/01/21 06:00 Total Counted 100 (0-100) 12/29/20 02:57 Atypical Lymphs % 0.0 % (0-5) 12/29/20 02:57 Absolute Neutrophi ls 16.7 10^3/cmm (1. 4-6.5) H 12/29/20 02:57 Segmented Neutroph ils 72 % 12/29/20 02:57 Abs Segm Neuts (Ma n) 13.4 10/cmm (1.6- 7.1) H 12/29/20 02:57 Band Neutrophils 18.0 % 12/29/20 02:57 Abs Band Neuts (Ma n) 3.3 10^3/cmm (0.0 -1.2) H 12/29/20 02:57 Absolute Lymphocyt es 0.9 10^3/cmm (1.2 -3.4) L 12/29/20 02:57 Lymphocytes (Manua l) 5 % 12/29/20 02:57 Monocytes (Manual) 5.0 % 12/29/20 02:57 Absolute Monocytes 0.9 10^3/cmm (0.1 -0.6) H 12/29/20 02:57 Eosinophils (Manua l) 0 % 12/29/20 02:57 Absolute Eosinophi ls 0.0 10^3/cmm (0.0 -0.7) 12/29/20 02:57 Basophils (Manual) 0.0 % 12/29/20 02:57 Absolute Basophils 0.0 10^3/cmm (0.0 -0.2) 12/29/20 02:57 Nucleated RBCs # 0.0 /100WBC 01/01/21 06:00 Pathologist Review No 12/29/20 02:57 Platelet Estimate Increased (Lisa l) 12/29/20 02:57 Giant Platelets Trace 12/29/20 02:57 Polychromasia Trace 12/29/20 02:57 Anisocytosis 1+ H 12/29/20 02:57 [place] Cells 2+ H 12/29/20 02:57 Specimen Type Arterial 12/28/20 16:58 Sample Site Brachial, right 12/28/20 16:58 ABG pH 7.42 (7.35-7.45) 12/28/20 16:58 ABG pCO2 31.3 mmHg (35-45) L 12/28/20 16:58 ABG pO2 69.9 mmHg (80.0-1 00.0) L 12/28/20 16:58 ABG HCO3 20.3 mmol/L (22-2 6) L 12/28/20 16:58 ABG Base Excess -3.5 mmol/L (-2.0 -2.0) L 12/28/20 16:58 Sixto Test Pos 12/28/20 16:58 Hematocrit 30.8 % (42-52) L 12/28/20 16:58 O2 Delivery Device Room air 12/28/20 16:58 FiO2 21.0 % 12/28/20 16:58 [employer] ID Cak 12/28/20 16:58 Sodium 129 mmol/L (136-1 45) L 01/01/21 06:00 Potassium 3.2 mmol/L (3.5-5 .1) L 01/01/21 06:00 Chloride 92 mmol/L (98-107 ) L 01/01/21 06:00 Carbon Dioxide 20 mmol/L (22-29) L 01/01/21 06:00 Anion Gap 20.2 (5-19) H 01/01/21 06:00 BUN 27 mg/dL (6-20) H 01/01/21 06:00 Creatinine 1.8 mg/dL (0.7-1. 2) H 01/01/21 06:00 GFR Calculation 39.5 mL/min (90-1 30) L 01/01/21 06:00 Glucose 78 mg/dL (65-115) 01/01/21 06:00 POC Glucose 122 mg/dL (70-110 ) H 01/01/21 11:01 Calculated Osmolal ity 272 mOsm/kg (285- 295) L 01/01/21 06:00 Lactate 1.1 mmol/L (0.5-2 .2) 12/28/20 19:34 Calcium 8.6 mg/dL (8.5-10 .5) 01/01/21 06:00 Phosphorus 2.5 mg/dL (2.5-4. 5) 12/28/20 17:05 Magnesium 1.9 mg/dL (1.7-2. 3) 12/29/20 02:57 Total Bilirubin 0.2 mg/dL (0.15-1 .2) 01/01/21 06:00 AST 17 U/L (0-40) 01/01/21 06:00 ALT 17 U/L (0-41) 01/01/21 06:00 Alkaline Phosphata se 63 IU/L (40-130) 01/01/21 06:00 Troponin T Baselin e 41 ng/L (0-15) H 12/28/20 17:05 Troponin T 120 Min atka 31.75 ng/L (0-15) H 12/28/20 18:57 Delta Troponin T -9.25 ABS# (0-10) L 12/28/20 18:57 Troponin T Hi Sens 6Hr 27.04 ng/L (0-15) H 12/28/20 23:43 Troponin T Hi Sens 6Hr Delta -13.96 ng/L (0-12 ) L 12/28/20 23:43 C-Reactive Protein 77.3 mg/L (0.0-4. 9) H 12/28/20 18:57 NT-Pro-B Natriuret Pep 2313 pg/mL (0-125 ) H 12/28/20 17:05 Total Protein 6.5 g/dL (6.6-8.7 ) L 01/01/21 06:00 Albumin 3.0 g/dL (3.5-5.2 ) L 01/01/21 06:00 Globulin 3.5 g/dL (1.3-4.6 ) 01/01/21 06:00 Lipase 20 U/L (13-60) 12/28/20 17:05 Procalcitonin 11.56 ng/mL (0-0. 5) H 12/28/20 18:57 TSH 1.94 uIU/mL (0.27 -4.20) 12/28/20 17:05 Random Cortisol 12.83 ug/dL (2.47 -19.5) 12/28/20 18:57 Urine Color Yellow (Yellow) 12/28/20 17:26 Urine Appearance Clear (CLEAR) 12/28/20 17:26 Urine pH 5 (5-7) 12/28/20 17:26 Ur Specific Gravit y 1.005 (1.005-1.0 30) 12/28/20 17:26 Urine Protein Trace (Negative) 12/28/20 17:26 Urine Glucose (UA) Norm (Normal) 12/28/20 17:26 Urine Ketones Negative (Negati ve) 12/28/20 17:26 Urine Blood Neg (Negative) 12/28/20 17:26 Urine Nitrate Negative (Negati ve) 12/28/20 17:26 Urine Bilirubin 1+ (Negative) H 12/28/20 17:26 Urine Urobilinogen Norm mg/dL (Negat alissa) 12/28/20 17:26 Ur Leukocyte Vania ase Negative (Negati ve) 12/28/20 17:26 Vancomycin Trough 19.5 ug/mL (10-15 ) H 12/31/20 19:54 Hepatitis A IgM Ab Non-reactive (No nreactive) 12/31/20 14:27 Hep Bs Antigen Non-reactive (No nreactive) 12/31/20 14:27 Hep Bs Antibody < 3.5 (11.5-1000 ) L 12/31/20 14:27 Hep B Core Total A b Non-reactive (No nreactive) 12/31/20 14:27 Hepatitis C Antibo dy Non-reactive (No nreactive) 12/31/20 14:27 HIV 1&2 Ab & HIV 1 Ag Non-reactive (No n-Reactiv) 12/31/20 13:45 HIV 1&2 Antibody Non-reactive (No n-Reactiv) 12/31/20 13:45 Influenza Type A A g Negative (Negati ve) 12/29/20 12:45 Influenza Type B A g Negative (Negati ve) 12/29/20 12:45 SARS-CoV-2 RNA (RT -PCR) Not detected (NO T DETECTED) 12/29/20 12:45 SARS-CoV-2 Ag (Rap id) Negative (Negati ve) 12/29/20 15:10 Impressions Chest X-Ray 12/28/20 16:48 IMPRESSION: 1. Bilateral upper lobe pneumonia, increased on the right. Radiation Dose CTDIVOL = (mGy): DLP = (mGy-cm) Abdomen/Pelvis CT 12/29/20 17:23 IMPRESSION: 1. Prominent fluid in the small bowel without dilation may reflect an enteritis. 2. Trace bilateral pleural effusions. 3. Emphysematous changes. 4. Bibasilar atelectasis. 5. Several hepatic cysts. 6. Cholecystectomy. 7. Polycystic kidneys. 8. Small amount of fluid in the pelvis, nonspecific. 9. Diverticulosis without diverticulitis. Radiation Dose CTDIVOL = (mGy): DLP = 1518.18 (mGy-cm) Head CT 01/01/21 13:54 IMPRESSION: 1. No evidence of intracranial hemorrhage or mass effect. 2. Mild small vessel changes. Mild parenchymal volume loss. 3. Right maxillary sinusitis. Microbiology 12/31/20 21:30 Nose MRSA Culture - Final 12/28/20 18:57 Blood Blood Culture - Preliminary NEGATIVE TO DATE 12/28/20 17:05 Blood Blood Culture - Preliminary NEGATIVE TO DATE Vitals: Last Vital Signs Temp 98.2 F 01/01/21 15:40 Pulse 95 01/01/21 15:54 Resp 20 H 01/01/21 15:54 BP 115/75 01/01/21 15:40 Pulse Ox 95 01/01/21 15:54 Discharge Plan Discharge Patient Disposition: Home Condition: Stable Prescriptions: New doxycycline monohydrate 100 mg Tablet 100 mg PO BID 3 Days Qty: 6 RF: 0 tramadol 50 mg tablet 50 mg PO BID PRN (Reason: pain) Qty: 10 RF: 0 Continued gabapentin 600 mg tablet 600 mg PO TID 30 Days Qty: 90 RF: 1 albuterol sulfate 1.25 mg/3 mL solution for nebulization 1.25 mg inhalation Q6H PRN (Reason: bronchospasm) 30 Days Qty: 90 RF: 1 hydroxychloroquine 200 mg tablet 200 mg PO BID 30 Days Qty: 60 RF: 0 Anoro Ellipta 62.5-25 mcg/actuation blister with device 1 inh inhalation DAILY 30 Days Qty: 60 RF: 3 atorvastatin 20 mg tablet 20 mg PO DAILY 30 Days Qty: 30 RF: 0 nitroglycerin 0.4 mg tablet, sublingual 0.4 mg sublingual Q5M PRN (Reason: chest pain) 30 Days Qty: 30 RF: 0 metformin 500 mg tablet 500 mg PO DAILY 30 Days Qty: 30 RF: 0 Hold Instructions: Resume on 12/23/20. pantoprazole [Protonix] 40 mg tablet,delayed release (DR/EC) 40 mg PO BID 30 Days Qty: 60 RF: 0 sucralfate [Carafate] 1 gram tablet 1 g PO BID 30 Days Qty: 60 RF: 0 isosorbide mononitrate 30 mg tablet extended release 24 hr 30 mg PO DAILY 30 Days Qty: 30 RF: 5 Spiriva with HandiHaler 18 mcg capsule, w/inhalation device 1 cap inhalation DAILY 30 Days Qty: 60 RF: 2 benzonatate [Tessalon Perles] 100 mg capsule 100 mg PO TID PRN (Reason: cough) 30 Days Qty: 90 RF: 2 Brilinta 90 mg tablet 90 mg PO BID Qty: 180 RF: 0 lisinopril 20 mg tablet 20 mg PO DAILY RF: 0 ondansetron HCl 8 mg tablet 8 mg PO DAILY PRN (Reason: Nausea And Vomiting) RF: 0 prednisone 5 mg tablet 10 mg PO DAILY RF: 0 ferrous sulfate [iron] 325 mg (65 mg iron) Tablet 325 mg PO DAILY RF: 0 albuterol sulfate 90 mcg/actuation HFA aerosol inhaler 2 puff INHALATION Q4H PRN (Reason: Shortness Of Breath) RF: 0 cholecalciferol (vitamin D3) [Vitamin D3] 25 mcg (1,000 unit) Capsule 25 mcg PO DAILY Qty: 0 RF: 0 metoprolol succinate 50 mg tablet extended release 24 hr 50 mg PO BID Qty: 180 RF: 0 metoprolol succinate 50 mg tablet extended release 24 hr 50 mg PO BID Qty: 180 RF: 0 Changed furosemide [Lasix] 40 mg tablet 40 mg PO DAILY PRN (Reason: swelling) Qty: 30 RF: 5 furosemide [Lasix] 40 mg tablet 40 mg PO DAILY PRN (Reason: swelling) Qty: 30 RF: 5 Discontinued potassium chloride 20 mEq tablet extended release 10 meq PO DAILY Qty: 30 RF: 5 budesonide 0.5 mg/2 mL suspension for nebulization 0.5 mg inhalation BID PRN (Reason: Shortness Of Breath) RF: 0 No Action (DME) glucometer testing kit See Rx Instructions .Route .MEDSUPPLY Qty: 1 RF: 0 Discharge Orders: Discharge Order (Routine); Ordered 01/01/21 Ordered By: Miguel Aguilera Referrals: MADELEINE Hays FNP [Primary Care Provider] - 2 weeks Aaliyah Bella MD [Physician] - 7-10 days Discharge Diet: Cardiac and Diabetic Discharge Activity: Resume usual activity Patient Instructions: Doxycycline (By mouth), Opioid Safety Activity Restrictions/Additional Instructions: Please follow-up with Dr. Bella within next 7 to 10 days for further evaluation for atypical pneumonia. Discharge Attestations Time Spent in Discharge Care*: greater than 30 min Specific Discharge Activities: educating patient, discussing with pcp/other providers, discussing with rn case mgr/social workers/dc planners, documenting/other paperwork and evaluating patient/reviewing data Status at Discharge: Cognitive status at discharge: cognitively intact , Behavioral status at discharge: cooperative , Functional status at discharge: independent ambulation Overall status at discharge: patient is back to [facility] Quality Metrics Clinical Quality Measures During this hospital stay, did patient experience: None Coding Level of Care Code Acute Chg FW DC note Diagnoses Sepsis A41.9 Bilateral pneumonia J18.9 Acute kidney injury N17.9 Chronic use of steroids Adrenal insufficiency E27.40 COPD (chronic obstructive pulmonary disease) J44.9 CHF (congestive heart failure) I50.9 Type 2 diabetes mellitus E11.65 Diabetes mellitus remote computer terminal operator insulin use: without half-way use Diabetes mellitus complication status: with hyperglycemia
[2021-01-03 07:56] LABS: P. Jirovecii DNA QL PCR NOT DETECTED; P. Jirovecii DNA QL PCR Source sputum
--- NOTE | 2021-01-03 14:16 | PC.SOCIAL ---
discharge follow up call made. pt reports he is dehydrated and needs fluids. discussed with pt he could come to the ED. pt doesn't wish to come to the ED. he wishes to see MADELEINE Hays tomorrow and have them administer fluids if needed. Appointment made with Madeleine for [phone]. Pt agrees to go and says his daughter will take him and tonight his grand daughter will more than likely be staying with him. She stayed with him last night.
[2021-01-03 16:29] LABS: Histoplasma Antigen (Quant) NONE DETECTED; Histoplasma Antigen Interpreta NEGATIVE; Histoplasma Antigen Specimen URINE
[2021-01-04 16:48] LABS: Adenovirus Not Detected (Not Detected); Human Metapneumovirus Not Detected (Not Detected); Human Parainflu Virus 1 Not Detected (Not Detected); Human Parainflu Virus 2 Not Detected (Not Detected); Human Parainflu Virus 3 Not Detected (Not Detected); Human Rsv A Not Detected (Not Detected); Influenza A Not Detected (Not Detected); Influenza B Not Detected (Not Detected); Rhinovirus/Enterovirus Not Detected (Not Detected)
[2021-01-04 17:58] LABS: Aspergillus AG,EIA,Serum NOT DETECTED; Aspergillus Galactomannan Inde <0.50
--- NOTE | 2021-01-15 16:15 | PC.SOCIAL ---
Critical Result of Mycobacterial smear + for mycobacterium avium complex and neg for Tuberculosis reported to Dr Aguilera. Per his response patient has spoken to Infectious disease provider Dr Edwards today and will be starting treatment. No further orders given to me.
== END 2021-01-01 17:29 | disposition home or self-care (01) | DRG 871 ==
LOC: ER 20:35 → ICU 21:50 → MEDSURG 12-30 01:04
PROVIDERS: Internal Medicine; Admitting Provider Internal Medicine; Emergency Provider Emergency Medicine; PCP Nurse Practitioner Family; Visit Provider Student in an Organized Health Care Education/Training Program
DX: A41.9 Sepsis, unspecified organism (principal); J18.9 Pneumonia, unspecified organism; I13.0 Hypertensive heart and chronic kidney disease with heart failure and stage 1 through stage 4 chronic kidney disease, or unspecified chronic kidney disease; N17.9 Acute kidney failure, unspecified; J44.0 Chronic obstructive pulmonary disease with (acute) lower respiratory infection; Q61.3 Polycystic kidney, unspecified; E27.40 Unspecified adrenocortical insufficiency; E87.1 Hypo-osmolality and hyponatremia; E11.22 Type 2 diabetes mellitus with diabetic chronic kidney disease; E11.65 Type 2 diabetes mellitus with hyperglycemia; N18.9 Chronic kidney disease, unspecified; I50.9 Heart failure, unspecified; E78.5 Hyperlipidemia, unspecified; I25.10 Atherosclerotic heart disease of native coronary artery without angina pectoris; Z95.5 Presence of coronary angioplasty implant and graft; M79.7 Fibromyalgia; M32.9 Systemic lupus erythematosus, unspecified; Z79.52 Long term (current) use of systemic steroids; I95.9 Hypotension, unspecified; R19.7 Diarrhea, unspecified; K57.90 Diverticulosis of intestine, part unspecified, without perforation or abscess without bleeding; R10.31 Right lower quadrant pain; Z79.02 Long term (current) use of antithrombotics/antiplatelets; Z79.84 Long term (current) use of oral hypoglycemic drugs; Z79.51 Long term (current) use of inhaled steroids
CPT/HCPCS: 31622; 31624; 36415; 36416; 36600; 70450; 71045; 74176; 80048; 80053; 80202; 81003; 82533; 82803; 82962; 83605; 83690; 83735; 83880; 84100; 84145; 84443; 84484; 85007; 85025; 86140; 86705; 86706; 86709; 86803; 87015; 87040; 87070; 87102; 87116; 87205; 87206; 87305; 87340; 87385; 87426; 87449; 87635; 87641; 87798; 87801; 87804; 87806; 88112; 88305; 92526; 92610; 93005; 93308; 94640; 94664; 94667; 96360; 96365; 96366; 96367; 96372; 96375; 97161; 97165; 97530; 99285; J1100; J1644; J1720; J1815; J2405; J2543; J2704; J3010; J3370; J3475; J7030; J7040; J7512; J7626

== ENCOUNTER → 2021-01-15 15:18 | Outpatient (BNVA) | payer MEDICARE, MEDICAID, SELFPAY | PROVIDERS: PCP Nurse Practitioner Family; Visit Provider Nurse Practitioner Family | DX: Z20.822 Contact with and (suspected) exposure to COVID-19 (principal); E86.0 Dehydration; R06.02 Shortness of breath | CPT/HCPCS: 80053; 81003; 84145; 85610; 86140; 87635 ==

== ENCOUNTER → 2021-01-21 12:29 | Outpatient (BNVA) | payer MEDICARE, MEDICAID, SELFPAY | PROVIDERS: PCP Nurse Practitioner Family; Visit Provider Nurse Practitioner Family | DX: N18.9 Chronic kidney disease, unspecified (principal) | CPT/HCPCS: 80053; 85025 ==

== ENCOUNTER → 2021-01-25 10:37 | Outpatient (BNVA) | payer MEDICARE, MEDICAID, SELFPAY | PROVIDERS: PCP Nurse Practitioner Family; Visit Provider Surgery | DX: Z20.822 Contact with and (suspected) exposure to COVID-19 (principal); Z11.52 Encounter for screening for COVID-19 | CPT/HCPCS: 87493; 87635 ==

== ENCOUNTER → 2021-01-28 08:59 | Outpatient (BNVA) | payer MEDICARE, MEDICAID, SELFPAY | PROVIDERS: PCP Nurse Practitioner Family; Visit Provider Internal Medicine Rheumatology | DX: R76.8 Other specified abnormal immunological findings in serum (principal); M35.3 Polymyalgia rheumatica; A31.0 Pulmonary mycobacterial infection; N18.9 Chronic kidney disease, unspecified; Q61.3 Polycystic kidney, unspecified; M32.9 Systemic lupus erythematosus, unspecified | CPT/HCPCS: 99204 ==

== ENCOUNTER 2021-01-28 11:31 | Outpatient (CLI) | payer MEDICARE, MEDICAID, SELFPAY ==
[2021-01-28 12:25] LABS: Albumin Level 3.9 g/dL (3.5-5.2); Anion Gap 17.9 (5-19); Blood Urea Nitrogen 35 mg/dL (6-20); Carbon Dioxide 20 mmol/L (22-29); Chloride 97 mmol/L (98-107); Glomerular Filtration Rate 37.1 mL/min (90-130); Glucose 79 mg/dL (65-115); Phosphorus 4.2 mg/dL (2.5-4.5); Potassium 4.9 mmol/L (3.5-5.1); Sodium 130 mmol/L (136-145)
== END 2021-01-28 11:32 | disposition home or self-care (01) ==
LOC: LAB 11:34
PROVIDERS: PCP Nurse Practitioner Family; Visit Provider Internal Medicine Nephrology
DX: N18.32 Chronic kidney disease, stage 3b (principal)
CPT/HCPCS: 80069

== ENCOUNTER 2021-01-30 06:41 | Day surgery (SDC) | payer MEDICARE, MEDICAID, SELFPAY ==
[2021-01-28 12:56] VITALS: BMI 23.1
--- NOTE | 2021-01-30 06:54 | P.HP_ITS ---
Same Day Surgery H&P Indication for Procedure/HPI DATE OF PROCEDURE: January 30, 2021 CHIEF COMPLAINT/INDICATIONFOR SURGICAL PROCEDURE: Abdominal pain PREOP DIAGNOSIS: Abdominal pain PLANNED PROCEDRUE: Operation Date: 01/30/21 07:45 Proposed Procedures p EGD/colon 35695 90403 r10.9(Not Applicable) - Ismael De León MD s Colonoscopy(Not Applicable) - Ismael De León MD 11/29/2020 This is a pleasant 54 years old gentleman presents with history of abdominal pain for the past 1 month or so has been getting worse in the morning and nothing seems to make it better or worse. Patient describes the pain as being crampy, about 9 years ago had a colonoscopy and a polyp was found otherwise denies bleeding per rectum or history of colon cancer. Also reports history of nonintentional weight loss on and off. Patient also reports that he has had abdominal pain related to his umbilical hernia that he is interested except at some point. Patient gives history also of acid reflux. The pain is more diffuse and not being referred.Being dull in nature. Patient also reports to me that he has been having low hemoglobin levels without obvious explanation. 01/30/2021 Patient comes today for diagnostic EGD and colonoscopy, patient gives history of acid reflux, colon polyp and nonintentional weight loss. The patient informs me today that he has diarrhea ROS All systems have been reviewed negative except as per the above or per problem list Medications/Allergies* Home Medications Medication Instructions Recorded Confirmed Type albuterol sulfate 2 puff INHALATION Q4H PRN 12/21/20 01/28/21 History cholecalciferol (vitamin D3) 25 mcg PO DAILY #0 12/21/20 01/28/21 History [Vitamin D3] ondansetron HCl 8 mg PO DAILY PRN 12/21/20 01/28/21 History hydroxychloroquine 200 mg tablet 200 mg PO DAILY tab 01/28/21 01/30/21 History pantoprazole 40 mg tablet,delayed 40 mg PO BID tab 01/28/21 01/30/21 History release lisinopril 20 mg PO DAILY 01/30/21 01/30/21 History metformin 500 mg PO DAILY PRN 01/30/21 01/28/21 History temazepam 15 mg PO BEDTIME 01/30/21 01/30/21 History Allergies/Adverse Reactions Allergy/AdvReac Type Severity Reaction Status Date / Time venom-wasp Allergy Severe ALGY-Hives Verified 01/30/21 06:55 Sulfa (Sulfonamide Allergy Intermediate itching Verified 01/30/21 06:55 Antibiotics) Pertinent History/Comorbid Conditions* Medical History (Updated 01/29/21 @ 12:23 by Pat Edwards MD) Abnormal chest xray Acute bacterial sinusitis Acute kidney injury Adrenal insufficiency CHF (congestive heart failure) Chronic use of steroids COPD (chronic obstructive pulmonary disease) Decreased GFR Dehydration Elevated platelet count Fibromyalgia Ground glass opacity present on imaging of lung Heart disease Lupus PCK (polycystic kidney disease) Polymyalgia rheumatica Positive ANASTASIA (antinuclear antibody) Right forearm injury Sepsis Shortness of breath Type 2 diabetes mellitus Type 2 diabetes mellitus Surgical History (Updated 01/28/21 @ 10:26 by Landon Winters MD) History of colonoscopy with polypectomy 2011 Status post angioplasty with stent Dr Kay 2014 Status post cholecystectomy Status post hernia repair Family History (Updated 11/28/20 @ 15:01 by Jillian Bob RN) Diabetes Father CAD (coronary artery disease) Father Dementia Family/Other Suicide Sister Lung disease Father Family/Other Denies family history of Stroke Social History Second hand smoke exposure: No Smoking risk assessment/counseling performed?: Yes Alcohol intake: former Counseling given: No Counseling given: No Lives independently: Yes Household members: none Marital status: Current occupational status: disabled History of recent travel: No Current gender identity: Male Pertinent Exam Findings alert, regular rate & rhythm and procedure specific exam findings Recommendations Surgery/Procedure today (Diagnostic EGD and colonoscopy) Other Plans: Plan of care; After thorough history and physical examination and reviewing the chart, plan to perform a diagnostic esophagogastroduodenoscopy and diagnostic colonoscopy with possible biopsy and possible polypectomy. I discussed with the patient in detail the risks,benefits,alternatives and indications.The risk of aspiration, bleeding, soft tissue injury, perforation of the stomach/esophagus/colon and other potential concomitant complications were explained to the patient in details also the potential need for Thoracotomy and or Laproscoy/Laparotomy to repair any related complications including but not limited to colectomy and or Closotomy. The patient understood this well and did agree to proceed. Rationale was carefully and clearly discussed with the patient.Appropriate informed consent have been reviewed and signed Verbal and written Instructions were given to the patient for colonoscopy prep Coding Level of Care Code Acute Dough Machine Operator for Chg Fwd
--- NOTE | 2021-01-30 07:20 | ANES.PREANE2 ---
Pre-Anesthetic Assessment Pre-Anesthetic Assessment: Height/Weight: Height 1.83 m Weight 77.564 kg Preop Diagnosis: Abdominal pain Proposed Procedure: Operation Date: 01/30/21 07:45 Proposed Procedures p EGD/colon [id number] r10.9(Not Applicable) - Ismael De León MD s Colonoscopy(Not Applicable) - Ismael De León MD Was Beta Irwin taken within 24 hours: Yes Was Clonidine taken within 24 hours: N/A Social: Social History: Tobacco and No alcohol Exam: Pre-Anes Outpt Exam: alert, oriented x 3 and regular rate & rhythm Airway: Submandibular: WNL Cervical ROM: WNL MP: 2 Dentition: Chipped Pulmonary: Pulmonary: COPD Comments: Mycobacterium Avium infection with cavitary lesion CV/HEM: CV/HEM: CAD (stent) : : Chronic renal Insufficiency Comments: Polycystic kidney GI: GI: GERD Metabolic: Metabolic: DM and Hyperlipidemia Musc/skel: Musc/skel: Fibromyalgia Anesthetic Plan: ASA status: 3 Anesthesia: MAC Risk of > 500 ml blood loss (7ml/kg in children): No PFSH Anesthesia PFSH: Medical History Abnormal chest xray Acute bacterial sinusitis Acute kidney injury Adrenal insufficiency CHF (congestive heart failure) Chronic use of steroids COPD (chronic obstructive pulmonary disease) Decreased GFR Dehydration Elevated platelet count Fibromyalgia Ground glass opacity present on imaging of lung Heart disease Lupus PCK (polycystic kidney disease) Polymyalgia rheumatica Positive ANASTASIA (antinuclear antibody) Right forearm injury Sepsis Shortness of breath Type 2 diabetes mellitus Type 2 diabetes mellitus Surgical History History of colonoscopy with polypectomy 2011 Status post angioplasty with stent Dr Kay 2014 Status post cholecystectomy Status post hernia repair Family History Father Diabetes CAD (coronary artery disease) Lung disease Family/Other Dementia Lung disease Sister Suicide Denies family history of Stroke Social History Second hand smoke exposure: No Smoking risk assessment/counseling performed?: Yes Alcohol intake: former Counseling given: No Counseling given: No Lives independently: Yes Household members: none Marital status: Current occupational status: disabled History of recent travel: No Current gender identity: Male Data Anesthesia Cardiac Studies: Echocardiogram 11/28/20
[2021-01-30 07:33] VITALS: BP 100/72; PULSE 89; RESP 18; TEMP 36.3; O2SAT 97
[2021-01-30] MEDS: sodium chloride 0.9% 1,000 ML 30 ML IV (07:44)
[2021-01-30] MEDS: dextrose 50% syringe 50 mL 25 ML IVP (08:00)
[2021-01-30 08:58] VITALS: BP 89/59; PULSE 86; RESP 16; TEMP 36.1; O2SAT 99
[2021-01-30 09:21] VITALS: BP 91/57; PULSE 89; RESP 18; O2SAT 99
--- NOTE | 2021-01-30 14:09 | ANE.PACU2 ---
Inpatient post-anesthesia follow up: Airway intact: Yes Vital signs: Temperature 97.0 F Pulse Rate 89 Respiratory Rate 18 Blood Pressure 91/57 Pulse Oximetry 99 Oxygen Delivery Me thod Room Air Oxygen Flow Rate 4 Fraction of Inspir ed Oxygen Hydration adequate: Yes Nausea and vomiting: No Pain level: 1 Mental status: Baseline
[2021-01-31 09:07] LABS: H. Pylori / CLO Test Negative
== END 2021-01-30 09:42 | disposition home or self-care (01) ==
PROVIDERS: Student in an Organized Health Care Education/Training Program; PCP Nurse Practitioner Family; Visit Provider Surgery
PROC: 0DJ08ZZ Inspection of Upper Intestinal Tract, Via Natural or Artificial Opening Endoscopic (ICD-10-PCS; CPT 43235; principal; 2021-01-30 07:45)
PROC: 0DJD8ZZ Inspection of Lower Intestinal Tract, Via Natural or Artificial Opening Endoscopic (ICD-10-PCS; CPT 45378; 2021-01-30 07:45)
DX: R10.9 Unspecified abdominal pain (principal); K57.30 Diverticulosis of large intestine without perforation or abscess without bleeding; K21.00 Gastro-esophageal reflux disease with esophagitis, without bleeding; K44.9 Diaphragmatic hernia without obstruction or gangrene; K29.70 Gastritis, unspecified, without bleeding; K29.80 Duodenitis without bleeding; J44.9 Chronic obstructive pulmonary disease, unspecified; I25.10 Atherosclerotic heart disease of native coronary artery without angina pectoris; Z95.5 Presence of coronary angioplasty implant and graft; E11.9 Type 2 diabetes mellitus without complications; E78.5 Hyperlipidemia, unspecified; M79.7 Fibromyalgia; I50.9 Heart failure, unspecified
CPT/HCPCS: 43239; 45378; 82274; 83630; 87077; 87493; 87506; 87556; 87561; 96360; 96361; 96374; J2704; J7030

== ENCOUNTER 2021-02-27 11:19 | Outpatient (CLI) | payer MEDICARE, MEDICAID, SELFPAY ==
--- NOTE | 2021-02-27 11:33 | US_ITS ---
WS: [id number] ULTRASOUND RENAL TECHNIQUE: Ultrasound examination of both kidneys. CLINICAL INFORMATION: STAGE 3 CHRONIC KIDNEY DZ COMPARISON: CT December 29, 2020 FINDINGS: Polycystic kidneys bilaterally. RIGHT: Right kidney is normal in size and appearance. Echogenicity: Normal. Cortical thickness: cm; Normal. Hydronephrosis: None. Perinephric fluid: None. Right kidney measures: 15.2 cm x 9.2 cm x 8.1 cm. LEFT: Left kidney is normal in size and appearance. Echogenicity: Normal. Cortical thickness: cm; Normal. Hydronephrosis: None. Perinephric fluid: None. Left kidney measures: 16.5 cm x 9.6 cm x 8.7 cm. Normal visualized aorta. US/US renal BI* [id number] IMPRESSION: 1. Enlarged polycystic kidneys bilaterally similar in appearance to the CT Nov 2020 2. No hydronephrosis in either kidney. 3. Largest cyst left kidney inferior pole measuring 4.1 x 4.3 x 4.3 CM. 4. Largest cyst right kidney measures 6.3 x 4.1 cm. 5. Normal bladder.
== END 2021-02-27 11:20 | disposition home or self-care (01) ==
LOC: RAD 11:23
PROVIDERS: PCP Nurse Practitioner Family; Visit Provider Internal Medicine Nephrology
DX: N18.32 Chronic kidney disease, stage 3b (principal); N28.1 Cyst of kidney, acquired
CPT/HCPCS: 76770

== ENCOUNTER 2021-03-25 10:10 | Day surgery (SDC) | payer MEDICARE, MEDICAID, SELFPAY ==
[2021-03-22 10:02] VITALS: BMI 24.4
[2021-03-23 17:07] LABS: Quest SARS-CoV-2 RNA NOT DETECTED (NOT DETECTED)
[2021-03-25] VITALS (14 sets, daily range): BP systolic 107–142; BP diastolic 67–84; PULSE 77–105; RESP 14–18; TEMP 36.6–37.2; O2SAT 92–100
[2021-03-25 11:05] LABS: Glucose Point of Care 108 mg/dL (70-110)
[2021-03-25] MEDS: sodium chloride 0.9% 1,000 ML 30 ML IV (11:10)
[2021-03-25] MEDS: acetaminophen 1,000 MG/100 ML PIGGYBACK 400 MG IV (11:20)
[2021-03-25] MEDS: heparin 5,000 unit/mL INJ 1 mL 2000 UNIT SUBCUT (11:41)
--- NOTE | 2021-03-25 12:17 | P.ANESASSM_ITS ---
Pre-Anesthetic Assessment Height/Weight: Height 1.83 m Weight 81.647 kg Temp Pulse Resp BP Pulse Ox 98.9 F 103 H 18 114/70 100 03/25/21 10:41 03/25/21 10:41 03/25/21 10:41 03/25/21 10:41 03/25/21 10:41 Preop Diagnosis: Umbilical hernia Operation Date: 03/25/21 11:40 Proposed Procedures p Open Umbilical Hernia Repair w/ poss Mesh [id number] K42.9(Not Applicable) - Ismael De León MD Familial anesthetic complications: None Was Beta Irwin taken within 24 hours: Yes Was Clonidine taken within 24 hours: N/A Last intake: Intake Last Liquid Date 03/25/21 Last Liquid Time 06:00 Last Solid Date 03/24/21 Last Solid Time 18:00 Social Tobacco and No alcohol Exam alert, oriented x 3 and regular rate & rhythm rhonxhi Airway Submandibular: within normal limits Cervical ROM: within normal limits Mallampati: Class II Dentition: other (OK) Pulmonary Chronic Obstructive Pulmonary Disease H/O MAC pneumonia CV/HEM Coronary Artery Disease (stents) and Hypertension Chronic Renal Insufficiency GI Gastroesophageal Reflux Disease and Hiatal Hernia Metabolic Diabetes Mellitus and Hyperlipidemia [facility] [place] Fibromyalgia and Rheumatoid Arthritis PMR/SLE Anesthetic Plan ASA status: 3 Anesthesia: General Risk of > 500 ml blood loss (7ml/kg in children): No Medications/Allergies Home Medications Medication Instructions Recorded Confirmed Last Taken Type albuterol sulfate 1.25 mg/3 mL 1.25 mg (3 mL) INHALATION Q6H PRN 10/30/20 03/25/21 03/24/21 Rx solution for nebulization 30 Days #90 ml atorvastatin 20 mg tablet 20 mg PO DAILY 30 Days #30 tab 11/13/20 03/25/21 03/24/21 Rx glucometer testing kit #1 ea 11/13/20 03/19/21 Unknown Rx sucralfate 1 gram tablet (Carafate) 1 g PO BID 30 Days #60 tab 11/13/20 03/25/21 03/23/21 Rx benzonatate 100 mg capsule 100 mg PO TID PRN 30 Days #90 cap 11/28/20 03/25/21 03/24/21 Rx ([place]) isosorbide mononitrate 30 mg 30 mg PO DAILY 30 Days #30 tab 11/28/20 03/25/21 03/23/21 Rx tablet,extended release 24 hr umeclidinium 62.5 mcg-vilanterol 1 inh INHALATION DAILY 30 Days #60 12/19/20 03/22/21 Unknown Rx 25 mcg/actuation powdr for ea inhalation (Anoro Ellipta) albuterol sulfate 90 mcg/actuation 2 puff INHALATION Q4H PRN 12/21/20 03/25/21 03/24/21 History aerosol inhaler cholecalciferol (vitamin D3) 25 25 mcg PO DAILY #0 12/21/20 03/25/21 03/23/21 History mcg (1,000 unit) capsule (Vitamin D3) ondansetron HCl 8 mg tablet 8 mg PO DAILY PRN 12/21/20 03/25/21 Unknown History ticagrelor 90 mg tablet (Brilinta) 90 mg PO BID #180 tab 12/27/20 03/25/21 03/18/21 Rx gabapentin 600 mg tablet 600 mg PO TID 30 Days #90 tab 01/23/21 03/25/21 03/25/21 05:00 Rx metoprolol succinate 50 mg 50 mg PO BID #180 tab 01/24/21 03/25/21 03/24/21 Rx tablet,extended release 24 hr hydroxychloroquine 200 mg tablet 200 mg PO DAILY tab 01/28/21 03/25/21 03/24/21 History pantoprazole 40 mg tablet,delayed 40 mg PO BID tab 01/28/21 03/25/21 03/24/21 History release (Protonix) prednisone 10 mg tablet 10 mg PO DAILY #90 tab 01/28/21 03/25/21 03/25/21 05:00 Rx lisinopril 20 mg tablet 20 mg PO DAILY 01/30/21 03/25/21 03/24/21 History metformin 500 mg tablet 500 mg PO DAILY PRN #30 tab 02/05/21 03/25/21 03/18/21 Rx nitroglycerin 0.4 mg sublingual 0.4 mg SUBLINGUAL Q5M PRN 30 Days 02/05/21 03/22/21 Unknown Rx tablet #30 tab temazepam 15 mg capsule 15 mg PO BEDTIME 30 Days #30 cap 03/01/21 03/25/21 03/24/21 Rx atovaquone 750 mg/5 mL oral 1,500 mg (10 mL) PO DAILY #210 ml 03/19/21 03/25/21 03/24/21 Rx suspension azithromycin 500 mg tablet 500 mg PO DAILY 30 Days #30 tab 03/19/21 03/25/21 03/24/21 Rx ethambutol 400 mg tablet 1,000 mg PO DAILY 30 Days #75 tab 03/19/21 03/25/21 03/23/21 Rx rifampin 300 mg capsule 600 mg PO DAILY 30 Days #60 cap 03/19/21 03/25/21 03/24/21 Rx Allergies Allergy/AdvReac Type Severity Reaction Status Date / Time venom-wasp Allergy Severe ALGY-Hives Verified 03/19/21 09:35 Sulfa (Sulfonamide Allergy Intermediate itching Verified 03/19/21 09:35 Antibiotics) Current Medications Generic Name Dose Route Start Last Admin Trade Name Freq PRN Reason Stop Dose Admin Sodium Chloride 1,000 mls @ 30 mls/hr 03/25/21 10:30 03/25/21 11:10 Sodium Chloride 0.9% IV 03/26/21 10:29 30 mls/hr .Q24H SAIDA Administration PFSH Anesthesia Medical History Abnormal chest xray Acute bacterial sinusitis Acute kidney injury Adrenal insufficiency CHF (congestive heart failure) Chronic use of steroids COPD (chronic obstructive pulmonary disease) Decreased GFR Dehydration Elevated platelet count Fibromyalgia Ground glass opacity present on imaging of lung Heart disease Insomnia Lupus PCK (polycystic kidney disease) Polymyalgia rheumatica Positive ANASTASIA (antinuclear antibody) Right forearm injury Sepsis Shortness of breath Type 2 diabetes mellitus Type 2 diabetes mellitus Surgical History History of colonoscopy with polypectomy 2011 Status post angioplasty with stent Dr Kay 2014 Status post cholecystectomy Status post hernia repair Family History Father Diabetes CAD (coronary artery disease) Lung disease Family/Other Dementia Lung disease Sister Suicide Denies family history of Stroke Social History Second hand smoke exposure: No Smoking risk assessment/counseling performed?: Yes Alcohol intake: former Counseling given: No Counseling given: No Lives independently: Yes Household members: none Marital status: Current occupational status: disabled History of recent travel: No Current gender identity: Male Data Anesthesia COVID Results 03/22/21 12:26 SARS-CoV-2 RNA (RT-PCR) Not detected Cardiac Studies: Echocardiogram 11/28/20 Echocardiogram Limited Views 12/29/20
--- NOTE | 2021-03-25 12:22 | W.PM.OPSUD ---
Surgery/Procedure H&P Update DATE OF PROCEDURE: March 25, 2021 DATE H&P PERFORMED: 02/27/21 PREOP DIAGNOSIS: Umbilical hernia PRIMARY INDICATION FOR PROCEDURE: The same PLANNED PROCEDURE: Operation Date: 03/25/21 11:40 Proposed Procedures p Open Umbilical Hernia Repair w/ poss Mesh [id number] K42.9(Not Applicable) - Ismael De León MD
[2021-03-25] MEDS: lidocaine 2% INJ 20 mL INJECTION (13:08)
--- NOTE | 2021-03-25 14:00 | PM.OP ---
Operative Report Date of procedure: March 25, 2021 Pre-op diagnosis: Preop Diagnosis Umbilical hernia Post-op diagnosis: The same Fascial defect 3 inches in diameter Procedure done: Open umbilical hernia repair with mesh placement(On lay) Implants: Polypropylene mesh onlay technique Specimens removed/disposition: Hernia sac and contents Surgeon: Ismael De León MD Pathology Transcriptionist: Surgical aldair Schafer Circulating nurse Faustina Lao Anesthesia: General (order administrator Giovana) Estimated blood loss: 10 IV fluids: 900 Procedure: Patient was identified in holding area and the site of the hernia was marked by me ,Patient was brought then to the operating room, general endotracheal anesthesia was administered by the anesthesia provider.prophylactic IV antibiotics were given per protocol Timeout was done verifying the patient's name/date of /planned procedure and destination after the procedure, all were in agreement. SCDs confirmed to be functioning, preoperative antibiotics administered per protocol, and beta jeremiah protocol was confirmed. Prep and drape of the abdomen was done under the usual sterile technique. I started by infraumbilical skin incision,and dissection was carried till the hernia sac was identified and opened,following that trimming of the edges and excising the sac,were sac and contents were sent for pathology.At that point the fascial defect is about three inches in diameter, after freeing all the adhesions and freeing the overlying fat on top of the fascia,to facilitate primary closure, under direct visualization I was able to use #1 PDS to close the defect primarily, as an interrupted [id number] sutures,copious and through irrigation of the wound was then achieved and hemostasis. A piece of Polyproylene mesh was then decided upon and placed as an on lay technique and sutured to the underluing fascia using intrupted 2/0 silk sutures,Tension free.Following that a 2/0 Vicryl running,continiuos deep subdermal stitch was placed,then 4-0 Monocryl was used for subcuticular closure of the skin incision. Lidocaine 2% was used for local infiltration.Surical glue was then applied.Followed by appropraie size Abdominal Binder. Counts of sponges,needles and instruments were completed at the end of the procedure and specimen was verified. Patient tolerated the procedure well and was taken to the recovery area in stable condition after Extubation I was present for the whole entire procedure. Post op recommendations: Cessation of smoking
[2021-03-25] MEDS: fentaNYL 50 mcg/mL INJ 2mL IVP (14:26)
[2021-03-25] MEDS: HYDROmorphone 1 mg/mL INJ 1 mL 0.5 MG IVP (14:48)
--- NOTE | 2021-03-25 14:55 | ANE.PACU2 ---
Inpatient post-anesthesia follow up: Airway intact: Yes Vital signs: Temperature 98.6 F Pulse Rate 93 Respiratory Rate 18 Blood Pressure 120/76 Pulse Oximetry 95 Oxygen Delivery Me thod Room Air Oxygen Flow Rate 6 Fraction of Inspir ed Oxygen Hydration adequate: Yes Nausea and vomiting: No Pain level: 3 Mental status: Baseline
[2021-03-25] MEDS: HYDROcodone-acetaminophen 5-325 mg Tablet 1 TAB PO (15:40)
== END 2021-03-25 15:50 | disposition home or self-care (01) ==
PROVIDERS: PCP Nurse Practitioner Family; Visit Provider Surgery
PROC: (CPT 49585; principal; 2021-03-25 11:40)
DX: K42.9 Umbilical hernia without obstruction or gangrene (principal); J44.9 Chronic obstructive pulmonary disease, unspecified; I25.10 Atherosclerotic heart disease of native coronary artery without angina pectoris; Z95.5 Presence of coronary angioplasty implant and graft; I10 Essential (primary) hypertension; K21.9 Gastro-esophageal reflux disease without esophagitis; E11.9 Type 2 diabetes mellitus without complications; E78.5 Hyperlipidemia, unspecified; M79.7 Fibromyalgia; M06.9 Rheumatoid arthritis, unspecified; I50.9 Heart failure, unspecified
CPT/HCPCS: 49585; 36416; 82962; 87635; 88302; 96372; J0690; J1100; J1170; J1644; J2250; J2405; J2704; J2710; J3010; J3490; J7030

== ENCOUNTER 2021-04-01 15:39 | Outpatient (CLI) | payer MEDICARE, MEDICAID, SELFPAY ==
[2021-04-01 16:28] LABS: Basophils # 0.1 10^3/uL (0.0-0.1); Basophils % 0.7 %; Eosinophils # 0.4 10^3/uL (0.0-0.8); Eosinophils % 3.7 %; Hematocrit 37.1 % (42.0-52.0); Hemoglobin 11.9 g/dL (11.7-16.6); Lymphocytes # 1.6 10^3/uL (0.8-4.8); Lymphocytes % 16.2 %; Mean Corpuscular HGB Conc 32.1 g/dL (30.0-36.0); Mean Corpuscular Hemoglobin 29.2 pg (28.0-34.0); Mean Corpuscular Volume 91.2 fl (80-94); Mean Platelet Volume 8.7 fL (7.4-10.4); Monocytes # 0.9 10^3/uL (0.2-0.9); Neutrophils # 6.75 10^3/uL (1.8-7.7); Neutrophils % 70.1 %; Nucleated Red Blood Cells % 0 %; Platelet Count 424 10^3/cmm (130-400); Red Blood Count 4.07 10^6/uL (4.1-5.3); White Blood Count 9.6 10^3/uL (4.0-10.0)
== END 2021-04-01 15:40 | disposition home or self-care (01) ==
LOC: LAB 15:50
PROVIDERS: PCP Nurse Practitioner Family; Visit Provider Student in an Organized Health Care Education/Training Program
DX: A31.0 Pulmonary mycobacterial infection (principal)
CPT/HCPCS: 36415; 85025

== ENCOUNTER 2021-04-16 13:48 | Outpatient (CLI) | payer MEDICARE, MEDICAID, SELFPAY ==
[2021-04-16 14:48] LABS: Basophils # 0.1 10^3/uL (0.0-0.1); Basophils % 0.8 %; Eosinophils # 0.4 10^3/uL (0.0-0.8); Eosinophils % 3.3 %; Hematocrit 33.7 % (42.0-52.0); Hemoglobin 11.5 g/dL (11.7-16.6); Lymphocytes # 1.6 10^3/uL (0.8-4.8); Lymphocytes % 14.3 %; Mean Corpuscular HGB Conc 34.1 g/dL (30.0-36.0); Mean Corpuscular Hemoglobin 29.9 pg (28.0-34.0); Mean Corpuscular Volume 87.8 fl (80-94); Mean Platelet Volume 8.2 fL (7.4-10.4); Monocytes # 1.2 10^3/uL (0.2-0.9); Monocytes % 10.7 %; Neutrophils # 7.92 10^3/uL (1.8-7.7); Neutrophils % 70.5 %; Nucleated Red Blood Cells % 0 %; Platelet Count 490 10^3/cmm (130-400); Red Blood Count 3.84 10^6/uL (4.1-5.3); Red Cell Distribution Width 15.9 % (12.1-15.1); White Blood Count 11.2 10^3/uL (4.0-10.0)
[2021-04-16 15:19] LABS: Albumin Level 4.2 g/dL (3.5-5.2); Anion Gap 14.8 (5-19); Carbon Dioxide 23 mmol/L (22-29); Chloride 93 mmol/L (98-107); Glucose 94 mg/dL (65-115); Phosphorus 3.5 mg/dL (2.5-4.5); Potassium 4.8 mmol/L (3.5-5.1); Sodium 126 mmol/L (136-145)
[2021-04-16 15:36] LABS: Blood Urea Nitrogen 19 mg/dL (6-20); Calcium 9.4 mg/dL (8.5-10.5); Glomerular Filtration Rate 42.2 mL/min (90-130)
[2021-04-16 16:33] LABS: Creatinine Urine, Random 41 mg/dL (39-259); Microalbumin Random Urine 6 ug/dL (0-20)
[2021-04-16 16:36] LABS: Microalbum Creatinine Ratio Ur 146 mg/dL (0-20)
== END 2021-04-16 13:49 | disposition home or self-care (01) ==
LOC: LAB 14:20
PROVIDERS: PCP Nurse Practitioner Family; Visit Provider Internal Medicine Nephrology
DX: N18.32 Chronic kidney disease, stage 3b (principal)
CPT/HCPCS: 80069; 82044; 85025

== ENCOUNTER 2021-04-18 12:34 | Outpatient (CLI) | payer MEDICARE, MEDICAID, SELFPAY ==
--- NOTE | 2021-04-18 12:54 | USCV_ITS ---
Arelis Hardin Age: 55 Gender: M : 1965 Exam Date: 04/18/2021 13:03 Ordering Phys: Sarah Kay MD ([email or web address]) Technologist: Yolande Glover [place] [facility] [place] P[place] Risk Factors: Smoker Previous Vascular Surgery: None RIGHT LEFT BP: 144.0 / 78.00 BP: 134.0/ 82.00 0 0 Waveform Velocity (cm/s) Velocity (cm/s) Waveform Monophasic 76.6 Iliac Prox 109.7 Monophasic Monophasic 91.1 Iliac Mid 100.7 Monophasic Monophasic 79.1 Iliac Distal 104.6 Monophasic Monophasic 137.7 STOCK RANCH SUPERVISOR 63.9 Monophasic Monophasic 136.3 SFA Prox 99.4 Monophasic Monophasic SFA Mid Monophasic 76.2 74.3 Monophasic 85.2 SFA Dist 145.3 Monophasic Monophasic 74.7 POP 147.0 Monophasic Monophasic 92.7 PHARMACY SCHEDULER 63.5 Monophasic Monophasic DPA 81.9 Monophasic 0.7 AGAPITO 0.5 FINDINGS RT PHARMACY SCHEDULER 100 RT DPA 80 LT PHARMACY SCHEDULER 60 LT DPA 70 Mild to moderate diffuse plaques in the iliac and femoral arteries bilaterally. An echolucent area measuring 1.69 x 1.99 x 2.22 cm at the medial ankle on the right side. One third of this area was found to be echogenic. Sitting AGAPITO of 0.7 on the right side and 0.5 on the left side CONCLUSIONS 1. Abnormal resting AGAPITO suggesting moderate peripheral artery disease in the right side and moderately severe peripheral arterial disease in the left side. 2. Mild to moderate diffuse plaques in the iliac and femoral arteries bilaterally. 3. An hypoechoic area near to the medial malleolus on the right side ,suggestive of tissue fluid collection/hematoma-clinical correlation is recommended Dr Sarah Kay MD [facility] (Electronically Signed) Final Date: 19 April 2021 10:35 S
== END 2021-04-18 12:35 | disposition home or self-care (01) ==
LOC: RAD 12:37
PROVIDERS: PCP Nurse Practitioner Family; Visit Provider Internal Medicine Cardiovascular Disease
DX: I73.9 Peripheral vascular disease, unspecified (principal); M79.605 Pain in left leg; I70.8 Atherosclerosis of other arteries
CPT/HCPCS: 93925

== ENCOUNTER 2021-04-22 09:14 | Outpatient (CLI) | payer MEDICARE, MEDICAID, SELFPAY ==
--- NOTE | 2021-04-22 09:32 | CT_ITS ---
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 Coronal and sagittal reformats are submitted. All CT scans at [facility] use at least one of these dose optimization techniques: automated exposure control; mA and/or kV adjustment per patient size (includes targeted exams where dose is matched to clinical indication); or iterative reconstruction. CONTRAST: None DLP: 781.27 mGy-cm. COMPARISON: 11/20/2020, 03/03/2016 Lungs and central airway: There is significant bilateral upper lobe areas of confluent opacifications with cavitation. Multiple cystic cavities are present interspersed with dense thick walled fibroglan dular tissue. Overall there has been a slight improvement. Continued coalescence of air spaces and in crease in size of the bulla and bleb formations. The owusu of some the cavitations are increasing in diameter. Very minimal groundglass attenuation and interstitial thickening in the dependent RIGHT low er lobe. Pleura: Normal. No pleural effusion. Heart and pericardium: Normal size heart. There is a very small pericardial effusion anteriorly versu s pericardial thickening. Mediastinum and kayode: No mediastinum or hilar adenopathy. Vessels: Mild atherosclerosis aorta. Normal size pulmonary artery. Moderate coronary artery calcifica tions. Chest wall and lower neck: Negative. Upper abdomen: Patient has known polycystic kidney disease. There are multiple cysts noted within the upper poles of each kidney. There are a few areas of decreased attenuation within the liver which ar e similar to the prior study probably representing polycystic liver disease. No adrenal mass. Osseous structures: Healing rib fracture posterior lateral RIGHT lower thorax. Prior cholecystectomy. CT/CT chest wo con [id number] IMPRESSION: 1. Mild improvement in the dense consolidations at the apices with increase in cavitation and cystic cavities. Recommend continued close follow-up to be sure there is no developing mass or nodule superimposed. 2. No adenopathy. 3. Polycystic renal and hepatic disease.
== END 2021-04-22 09:15 | disposition home or self-care (01) ==
LOC: RAD 09:16
PROVIDERS: PCP Nurse Practitioner Family; Visit Provider Student in an Organized Health Care Education/Training Program
DX: A31.0 Pulmonary mycobacterial infection (principal); Q61.3 Polycystic kidney, unspecified; Q44.6 Cystic disease of liver
CPT/HCPCS: 71250

== ENCOUNTER → 2021-04-24 09:55 | Outpatient (BNVA) | payer MEDICARE, MEDICAID, SELFPAY | PROVIDERS: PCP Family Medicine; Visit Provider Internal Medicine Cardiovascular Disease | DX: I25.110 Atherosclerotic heart disease of native coronary artery with unstable angina pectoris (principal); I10 Essential (primary) hypertension; I77.9 Disorder of arteries and arterioles, unspecified; I65.29 Occlusion and stenosis of unspecified carotid artery | CPT/HCPCS: 99214 ==

== ENCOUNTER 2021-04-24 15:56 | Emergency (ER) | payer MEDICARE, MEDICAID, SELFPAY ==
[2021-04-24 16:04] VITALS: BP 133/85; PULSE 100; RESP 20; TEMP 36.6; O2SAT 97; BMI 23.8
--- NOTE | 2021-04-24 16:17 | ECG_ITS ---
[facility] Test Date: 2021-04-24 Pat Name: Arelis Hardin Department: Room: Gender: Male Space Operations: : 1965 Requested By: Stone Singh Order Number: [id number] Paola MD: Sarah Kay M.D. Measurements Intervals [place] Rate: 88 P: 52 PA: 159 QRS: 77 QRSD: 94 T: 71 QT: 332 QTc: 402 Interpretive Statements SINUS RHYTHM WITH SINUS ARRHYTHMIA Compared to ECG 12/28/2020 19:11:28 Sinus tachycardia no longer present Myocardial infarct finding no longer present Electronically Signed On 04-24-2021 23:13:35 DISCHARGE DOOR OPERATOR by Sarah Kay M.D. [id number]
--- NOTE | 2021-04-24 16:26 | ED_ITS ---
HPI - Dizziness General: Chief Complaint: Dizziness Stated Complaint: Low blood pressure, dizziness, headache Time Seen by Provider: 04/24/21 16:15 Source: patient Mode of arrival: ambulatory Limitations: no limitations History of Present Illness: HPI Narrative: 55-year-old male presents emergency room complaining of hypotension dizziness lightheadedness and diarrhea. 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 He has been taking Imodium for that. He denies any hem atochezia melena hematemesis or coffee-ground emesis. He was seen today by nurse practitioner at the nephrology clinic and referred here evidently they told him his sodium was low and that he would need IV fluids.. Patient denies any fever sweats chills or any chest pain he does state he has a history of coronary disease and previously had stents in 2014 MD elicited complaint: dizziness Onset (ago): day(s) Timing: gradual onset Severity: moderate Description: lightheadedness Exacerbating factors: change in body position, exertion and standing Relieving factors: rest and lying down Associated symptoms: Reports malaise and weakness; Denies change in hearing, chest pain, chills, cough, diaphoresis, ear discharge, ear pressure, fevers/chills, headache(s), nausea, nasal congestion, palpitations, rash, short of breath, syncope, tinnitus or vomiting Associated neuro symptoms: Deny confusion, difficulty speaking, dysphagia, diplopia, extremity weakness, facial numbness, facial weakness, gait changes, numbness in extremities or visual changes Review of Systems Const: Reports: malaise; Denies: chills or diaphoresis ENMT: Denies: ear discharge, change in hearing, tinnitus or nasal congestion Card: Denies: chest pain, palpitations or syncope Resp: Denies: dyspnea, productive cough or non-productive cough GI: Reports: diarrhea and GI cramping; Denies: nausea, vomiting or dysphagia : Denies: flank pain, dysuria, urinary frequency or urinary urgency Skin/Breast: Denies: rash or pruritus Neuro: Denies: headache(s), numbness in extremities or confusion PFSH ED PFSH: Medical History Abnormal chest xray Acid reflux Acute bacterial sinusitis Acute kidney injury Adrenal insufficiency CHF (congestive heart failure) Chronic use of steroids COPD (chronic obstructive pulmonary disease) Decreased GFR Dehydration Diverticulosis Elevated platelet count Fibromyalgia Gastritis and duodenitis Ground glass opacity present on imaging of lung Heart disease Hiatal hernia Insomnia Lupus PCK (polycystic kidney disease) Polymyalgia rheumatica Positive ANASTASIA (antinuclear antibody) Right forearm injury Sepsis Shortness of breath Type 2 diabetes mellitus Type 2 diabetes mellitus Surgical History History of colonoscopy with polypectomy 2011 Status post angioplasty with stent Dr Kay 2014 Status post cholecystectomy Status post hernia repair Family History Father Diabetes CAD (coronary artery disease) Lung disease Family/Other Dementia Lung disease Sister Suicide Denies family history of Stroke Social History Smoking and tobacco status: never smoked Second hand smoke exposure: No Smoking risk assessment/counseling performed?: Yes Alcohol intake: former Counseling given: No Counseling given: No Lives independently: Yes Household members: none Marital status: Current occupational status: disabled History of recent travel: No Current gender identity: Male Physical Exam Const: COMMON NORMALS: no acute distress GENERAL APPEARANCE: cooperative and comfortable ORIENTATION/CONSCIOUSNESS: Yes awake, Yes oriented to person, Yes oriented to place and Yes oriented to time HENMT: COMMON NORMALS: normocephalic, atraumatic and hearing grossly normal bilaterally HEAD & SCALP: normocephalic and atraumatic Neck/C-Spine: COMMON NORMALS: no JVD Resp: COMMON NORMALS: normal respiratory effort, No retractions, No use of accessory muscles and clear to auscultation bilaterally AUSCULTATION: clear to auscultation bilaterally Cardio: COMMON NORMALS: no JVD, regular rate, regular rhythm and No murmurs present (Cardio) RATE: regular rate RHYTHM: regular rhythm GI: COMMON NORMALS: Soft to palpation and No hepatosplenomegaly present AUSCULTATION: Yes normoactive bowel sounds PALPATION: Yes Soft to palpation, No Tenderness to palpation present (GI), No Guarding due to palpation present (GI) and Yes No hepatosplenomegaly present Extremity: COMMON NORMALS: normal to inspection, capillary refill normal, no clubbing, cyanosis or edema, no calf tenderness and no pedal edema Neuro: SENSORIUM/ORIENTATION: Yes oriented to person, Yes oriented to place and Yes oriented to time Skin: COMMON NORMALS: no rashes or lesions noted GENERAL SKIN EXAM: no rashes or lesions noted Course Vital Signs: Vital signs: Vital Signs Temperature 97.8 F 04/24/21 16:04 Pulse Rate 90 04/24/21 16:55 Respiratory Rate 20 H 04/24/21 16:04 Blood Pressure 126/89 04/24/21 16:55 Pulse Oximetry 97 04/24/21 16:04 MDM - Dizziness Medical Decision Making Mild hyponatremia renal function is not significantly off he was given some fluids continue current medications no changes. His blood pressure on arrival here is within normal range. Follow-up with repeat labs primary care doctor within the next week return if has problems. Medical Records I reviewed the patient's medical records. Lab Data I reviewed the patient's lab results. : 04/24/21 16:30 04/24/21 16:30 Laboratory Results WBC 9.9 10^3/uL (4.0-10.0) 04/24/21 16:30 RBC 3.93 10^6/uL (4.1-5.3) L 04/24/21 16:30 Hgb 11.7 g/dL (11.7-16.6) 04/24/21 16:30 Hct 35.3 % (42.0-52.0) L 04/24/21 16:30 MCV 89.8 fl (80-94) 04/24/21 16:30 MCH 29.8 pg (28.0-34.0) 04/24/21 16:30 MCHC 33.1 g/dL (30.0-36.0) 04/24/21 16:30 RDW 15.3 % (12.1-15.1) H 04/24/21 16:30 Plt Count 441 10^3/cmm (130-400) H 04/24/21 16:30 MPV 8.4 fL (7.4-10.4) 04/24/21 16:30 Neut % (Auto) 67.7 % 04/24/21 16:30 Lymph % (Auto) 14.5 % 04/24/21 16:30 [place] % (Auto) 11.9 % 04/24/21 16:30 Eos % (Auto) 4.6 % 04/24/21 16:30 Baso % (Auto) 0.9 % 04/24/21 16:30 Neut # (Auto) 6.73 10^3/uL (1.8-7.7) 04/24/21 16:30 Lymph # (Auto) 1.4 10^3/uL (0.8-4.8) 04/24/21 16:30 [place] # (Auto) 1.2 10^3/uL (0.2-0.9) H 04/24/21 16:30 Eos # (Auto) 0.5 10^3/uL (0.0-0.8) 04/24/21 16:30 Baso # (Auto) 0.1 10^3/uL (0.0-0.1) 04/24/21 16:30 Nucleated RBC % (auto) 0 % 04/24/21 16:30 Nucleated RBCs # 0.0 /100WBC 04/24/21 16:30 Sodium 128 mmol/L (136-145) L 04/24/21 16:30 Potassium 4.6 mmol/L (3.5-5.1) 04/24/21 16:30 Chloride 92 mmol/L (98-107) L 04/24/21 16:30 Carbon Dioxide 24 mmol/L (22-29) 04/24/21 16:30 Anion Gap 16.6 (5-19) 04/24/21 16:30 BUN 26 mg/dL (6-20) H 04/24/21 16:30 Creatinine 2.0 mg/dL (0.7-1.2) H 04/24/21 16:30 GFR Calculation 35.0 mL/min (90-130) L 04/24/21 16:30 Glucose 78 mg/dL (65-115) 04/24/21 16:30 Calculated Osmolality 270 mOsm/kg (285-295) L 04/24/21 16:30 Calcium 9.8 mg/dL (8.5-10.5) 04/24/21 16:30 Total Bilirubin 0.2 mg/dL (0.15-1.2) 04/24/21 16:30 AST 16 U/L (0-40) 04/24/21 16:30 ALT 10 U/L (0-41) 04/24/21 16:30 Alkaline Phosphatase 61 IU/L (40-130) 04/24/21 16:30 Total Protein 6.6 g/dL (6.6-8.7) 04/24/21 16:30 Albumin 4.1 g/dL (3.5-5.2) 04/24/21 16:30 Globulin 2.5 g/dL (1.3-4.6) 04/24/21 16:30 Urine Color Yellow (Yellow) 04/24/21 16:30 Urine Appearance Clear (CLEAR) 04/24/21 16:30 Urine pH 7 (5-7) 04/24/21 16:30 Ur Specific [place] 1.010 (1.005-1.030) 04/24/21 16:30 Urine Protein Neg (Negative) 04/24/21 16:30 Urine Glucose (UA) Norm (Normal) 04/24/21 16:30 Urine Ketones Negative (Negative) 04/24/21 16:30 Urine Blood Neg (Negative) 04/24/21 16:30 Urine Nitrate Negative (Negative) 04/24/21 16:30 Urine Bilirubin Neg (Negative) 04/24/21 16:30 Urine Urobilinogen Norm mg/dL (Negative) 04/24/21 16:30 Ur Leukocyte Esterase Negative (Negative) 04/24/21 16:30 Discharge Plan Discharge Patient Disposition: Home Clinical Impression: PCK (polycystic kidney disease), Chronic diarrhea, Hyponatremia Condition: Stable Prescriptions: No Action albuterol sulfate 1.25 mg/3 mL solution for nebulization 1.25 mg inhalation Q6H PRN (Reason: bronchospasm) 30 Days Qty: 90 1RF Anoro Ellipta 62.5-25 mcg/actuation blister with device 1 inh inhalation DAILY 30 Days Qty: 60 3RF temazepam 15 mg capsule 15 mg PO BEDTIME 30 Days Qty: 30 2RF (DME) glucometer testing kit See Rx Instructions .Route .MEDSUPPLY Qty: 1 0RF Rx Instructions: glucometer testing kit, check BS TID lancets #100 strips# 100 sucralfate [Carafate] 1 gram tablet 1 g PO BID 30 Days Qty: 60 0RF isosorbide mononitrate 30 mg tablet extended release 24 hr 30 mg PO DAILY 30 Days Qty: 30 5RF prednisone 10 mg tablet 10 mg PO DAILY Qty: 90 1RF benzonatate [Tessalon Perles] 100 mg capsule 100 mg PO TID PRN (Reason: cough) 30 Days Qty: 90 2RF Brilinta 90 mg tablet 90 mg PO BID Qty: 180 0RF Hold Instructions: Resume on 02/06/21. hydroxychloroquine 200 mg tablet 200 mg PO DAILY 0RF acetaminophen-codeine 300-30 mg tablet 1 tab PO TID PRN (Reason: pain) Qty: 60 1RF rifampin 300 mg capsule 600 mg PO DAILY 30 Days Qty: 60 3RF azithromycin 500 mg tablet 500 mg PO DAILY 30 Days Qty: 30 3RF ethambutol 400 mg tablet 1,000 mg PO DAILY 30 Days Qty: 75 3RF atovaquone 750 mg/5 mL suspension 1,500 mg PO DAILY Qty: 210 2RF Hold Instructions: Adverse Reaction Rx Instructions: must administer with food, preferably a high-fat meal metoprolol succinate 50 mg tablet extended release 24 hr 50 mg PO BID Qty: 180 3RF nitroglycerin 0.4 mg tablet, sublingual 0.4 mg sublingual Q5M PRN (Reason: chest pain) 30 Days Qty: 30 0RF Rx Instructions: do not exceed 3 doses per episode gabapentin 600 mg tablet 600 mg PO TID 90 Days Qty: 270 1RF metformin 500 mg tablet 1,000 mg PO DAILY PRN (Reason: Hyperglycemia) Qty: 90 1RF pantoprazole 40 mg tablet,delayed release (DR/EC) See Rx Instructions .ROUTE .COMPLEX Qty: 90 0RF Dose Instruction: TAKE ONE TABLET BY MOUTH EVERY DAY Rx Instructions: TAKE ONE TABLET BY MOUTH EVERY DAY atorvastatin 20 mg tablet 40 mg PO DAILY Qty: 180 3RF lisinopril 20 mg tablet 20 mg PO DAILY 0RF albuterol sulfate 90 mcg/actuation HFA aerosol inhaler 2 puff INHALATION Q4H PRN (Reason: Shortness Of Breath) 0RF cholecalciferol (vitamin D3) [Vitamin D3] 25 mcg (1,000 unit) Capsule 25 mcg PO DAILY Qty: 0 0RF Discharge Orders: Discharge ED (Routine); Ordered 04/24/21 Ordered By: Stone Brooks Referrals: Jarred Hatch MD [Primary Care Provider] - Discharge Diet: Usual diet Discharge Activity: Increase activity as tolerated Patient Instructions: Opioid Safety Activity Restrictions/Additional Instructions: Fiber supplement daily to diet. Follow-up with your primary care doctor within the week. Coding Level of Care Code ED Air Traffic Controller for David Fwd Exam Comprehensive
[2021-04-24] MEDS: sodium chloride 0.9% 1,000 ML 999 ML IV (16:41)
[2021-04-24 16:53] LABS: Basophils # 0.1 10^3/uL (0.0-0.1); Basophils % 0.9 %; Eosinophils # 0.5 10^3/uL (0.0-0.8); Eosinophils % 4.6 %; Hematocrit 35.3 % (42.0-52.0); Hemoglobin 11.7 g/dL (11.7-16.6); Lymphocytes # 1.4 10^3/uL (0.8-4.8); Lymphocytes % 14.5 %; Mean Corpuscular HGB Conc 33.1 g/dL (30.0-36.0); Mean Corpuscular Hemoglobin 29.8 pg (28.0-34.0); Mean Corpuscular Volume 89.8 fl (80-94); Mean Platelet Volume 8.4 fL (7.4-10.4); Monocytes # 1.2 10^3/uL (0.2-0.9); Monocytes % 11.9 %; Neutrophils # 6.73 10^3/uL (1.8-7.7); Neutrophils % 67.7 %; Nucleated Red Blood Cells % 0 %; Platelet Count 441 10^3/cmm (130-400); Red Blood Count 3.93 10^6/uL (4.1-5.3); Red Cell Distribution Width 15.3 % (12.1-15.1); White Blood Count 9.9 10^3/uL (4.0-10.0)
[2021-04-24 16:55] VITALS: BP 119/86; BP 120/82; BP 126/89; PULSE 90; PULSE 92; PULSE 96
[2021-04-24 17:13] LABS: Alanine Aminotransferase 10 U/L (0-41); Albumin Level 4.1 g/dL (3.5-5.2); Alkaline Phosphatase 61 IU/L (40-130); Anion Gap 16.6 (5-19); Aspartate Amino Transferase 16 U/L (0-40); Blood Urea Nitrogen 26 mg/dL (6-20); Calcium 9.8 mg/dL (8.5-10.5); Carbon Dioxide 24 mmol/L (22-29); Chloride 92 mmol/L (98-107); Globulin 2.5 g/dL (1.3-4.6); Glucose 78 mg/dL (65-115); Osmolality Calculated 270 mOsm/kg (285-295); Potassium 4.6 mmol/L (3.5-5.1); Sodium 128 mmol/L (136-145); Total Bilirubin 0.2 mg/dL (0.15-1.2); Total Protein 6.6 g/dL (6.6-8.7)
[2021-04-24 17:22] LABS: Add Urine Microscopic? NO; Charge for UA Resulting for Rev
[2021-04-24 17:33] LABS: Bilirubin Urine Neg (Negative); Blood Urine Neg (Negative); Glucose Urine UA Norm (Normal); Ketones Urine Negative (Negative); Leukocyte Esterase Urine Negative (Negative); Nitrate Urine Negative (Negative); Protein Urine Neg (Negative); Urine Appearance Clear (CLEAR); Urine Color Yellow (Yellow); Urobilinogen Urine Norm (Negative); pH Urine 7 (5-7)
== END 2021-04-24 17:57 | disposition home or self-care (01) ==
PROVIDERS: Emergency Provider Family Medicine; PCP Family Medicine
DX: K52.9 Noninfective gastroenteritis and colitis, unspecified (principal); E87.1 Hypo-osmolality and hyponatremia; Q61.3 Polycystic kidney, unspecified; Z79.84 Long term (current) use of oral hypoglycemic drugs; I11.0 Hypertensive heart disease with heart failure; I50.9 Heart failure, unspecified; J44.9 Chronic obstructive pulmonary disease, unspecified; E11.9 Type 2 diabetes mellitus without complications
CPT/HCPCS: 80053; 80061; 80076; 81003; 82550; 85025; 93005; 96360; 99283; J7030

== ENCOUNTER → 2021-04-29 09:46 | Outpatient (BNVA) | payer MEDICARE, MEDICAID, SELFPAY | PROVIDERS: PCP Family Medicine; Visit Provider Internal Medicine Rheumatology | DX: R76.8 Other specified abnormal immunological findings in serum (principal); M35.3 Polymyalgia rheumatica; A31.0 Pulmonary mycobacterial infection; N18.9 Chronic kidney disease, unspecified; Z79.52 Long term (current) use of systemic steroids; Q61.3 Polycystic kidney, unspecified | CPT/HCPCS: 99214 ==

== ENCOUNTER 2021-05-03 14:22 | Outpatient (CLI) | payer MEDICARE, MEDICAID, SELFPAY ==
--- NOTE | 2021-05-03 14:41 | XR_ITS ---
WS: [id number] XR lumbar spine 2-3V* [id number] REASON FOR EXAM: R76.8 - Other specified abnormal immunological findings i... FINDINGS: Lumbar spine demonstrates mild rotatory scoliosis convex left on the AP view. On the lateral view the re is reversal of the normal lordosis of the lumbar spine. Mild chronic appearing superior endplate compressions at L1-L4 with sclerosis and osteophytes. Significant narrowing of the intervertebral disc spaces at L1-L2, L2-L3, and L3-L4. No spondylolysis identified. There is 7 mm of anterolisthesis of L2 on L3. There is 4 mm of anterolisthesis of L4 in relation to L3. XR/XR lumbar spine 2-3V* [id number] IMPRESSION: Degenerative spondylosis and old compression deformities.
--- NOTE | 2021-05-03 14:41 | XR_ITS ---
WS: [id number] XR cervical spine 3V* [id number] REASON FOR EXAM: R76.8 - Other specified abnormal immunological findings i... FINDINGS: Straightening of the normal lordosis of the cervical spine on the lateral view. No significant compression deformity or other focal vertebral body abnormality is identified. There is narrowing of the intervertebral disc spaces at C5-C6 and C6-C7. There is 1.7 mm of anterolateral listhesis of C5 on C6 and 1 mm anterolisthesis of C4 on C5. There is calcified plaque noted in both carotid arteries, most significant on the left. XR/XR cervical spine 3V* [id number] IMPRESSION: Degenerative spondylosis in the cervical spine as above.
[2021-05-06 14:13] LABS: Thyroglobulin AB <1 IU/mL (< or = 1)
[2021-05-06 15:48] LABS: THYROID PEROXIDASE ANTIBODIES <1 IU/mL (<9)
[2021-05-06 16:58] LABS: CENTROMERE B ANTIBODY <1.0 NEG AI (<1.0 NEG); JO-1 ANTIBODY <1.0 NEG AI (<1.0 NEG); RNP ANTIBODY <1.0 NEG AI (<1.0 NEG); SCL-70 ANTIBODY <1.0 NEG AI (<1.0 NEG); SJOGREN'S ANTIBODY (SS-A) <1.0 NEG AI (<1.0 NEG); SM ANTIBODY <1.0 NEG AI (<1.0 NEG); SS-B <1.0 NEG AI (<1.0 NEG)
[2021-05-07 17:18] LABS: ANA PATTERN Nuclear, Nucleolar; ANA SCREEN, IFA POSITIVE (NEGATIVE); ANA TITER 1:40 titer
[2021-05-08 15:03] LABS: DNA AB (DS) CRITHIDIA,IFA NEGATIVE (NEGATIVE)
== END 2021-05-03 14:23 | disposition home or self-care (01) ==
PROVIDERS: PCP Family Medicine; Visit Provider Internal Medicine Rheumatology
DX: R76.8 Other specified abnormal immunological findings in serum (principal); Z79.899 Other long term (current) drug therapy; Q61.3 Polycystic kidney, unspecified; M35.3 Polymyalgia rheumatica; M32.9 Systemic lupus erythematosus, unspecified; M47.816 Spondylosis without myelopathy or radiculopathy, lumbar region; M47.812 Spondylosis without myelopathy or radiculopathy, cervical region
CPT/HCPCS: 72040; 72100; 86160; 86162; 86235; 86255; 86376; 86800

== ENCOUNTER 2021-05-22 11:35 | Emergency (ER) | payer MEDICARE, MEDICAID, SELFPAY ==
[2021-05-22] VITALS (10 sets, daily range): BP systolic 155–174; BP diastolic 79–125; PULSE 72–100; RESP 11–22; TEMP 36.2–36.3; O2SAT 96–99; BMI 23.0
--- NOTE | 2021-05-22 11:30 | ECG_ITS ---
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 Measurements Intervals [place] Rate: 76 P: 62 NV: 143 QRS: 77 QRSD: 96 T: 79 QT: 332 QTc: 374 Interpretive Statements SINUS RHYTHM WITH OCCASIONAL SUPRAVENTRICULAR PREMATURE COMPLEXES Compared to ECG 04/24/2021 16:42:11 Sinus arrhythmia no longer present Electronically Signed On 05-22-2021 18:30:29 CDT by Chelo Coombs M.D. [id number]
--- NOTE | 2021-05-22 11:44 | CT_ITS ---
WS: [id number] CT ABDOMEN PELVIS TECHNIQUE: Noncontrast CT of the abdomen and pelvis with coronal and sagittal reformatted images. CLINICAL INFORMATION: abd pain, ckd COMPARISON: CT December 29, 2020 DLP: 1419.[address] scans at [facility] use at least one of these dose optimization techniques: automated e xposure control; mA and/or kV adjustment per patient size (includes targeted exams where dose is matc hed to clinical indication); or iterative reconstruction. FINDINGS: Lung bases are well aerated. Multiple hepatic cysts similar to prior examination. Prior cholecystecto my. Mild hepatomegaly. Normal noncontrast spleen. Normal GE junction. Adrenal glands are normal. Poly cystic kidneys bilaterally with innumerable bilateral renal cysts similar to the prior examination. N ormal noncontrast pancreas. Adrenal glands are normal. Normal caliber abdominal aorta. Aortic calcifi cation. Urine distended bladder. Sigmoid diverticulosis. No evidence of acute diverticulitis. No evidence of high-grade small or large bowel obstruction. Normal appendix in the RIGHT lower quadrant. Disc space narrowing worse at L2-L3 unchanged from previous with slight anterolisthesis. Chronic RIGHT lower rib fracture IMPRESSION: 1. No acute findings in the abdomen or pelvis. 2. Multicystic kidneys bilaterally similar to the prior examination. 3. Innumerable hepatic cysts with mild hepatomegaly similar to previous. 4. Tiny esophageal hiatal hernia. 5. Cholecystectomy. 6. Diverticulosis. No evidence of acute diverticulitis. 7. Normal appendix in the RIGHT lower quadrant. 8. Tiny fat-containing umbilical hernia unchanged. 9. No other significant findings.
--- NOTE | 2021-05-22 11:45 | W.ED.ABDPA2 ---
HPI - Abdominal Pain General: Chief Complaint: Nausea/Vomiting/Diarrhea Stated Complaint: HEADACHE/ SICK Time Seen by Provider: 05/22/21 11:38 History of Present Illness: 55-year-old presents due to abdominal pain nausea and nonbloody nonbilious vomiting. Per EMS blood sugar at the scene was in the 50s and improved to 90s on dextrose. Patient has history of chronic diarrhea and states this not recently changed. He also has history of polycystic kidney disease and states that he has had similar episodes of pain in the past. States pain is achy diffuse and nonradiating. Denies any chest pain. Denies any dysuria or urethral discharge. Review of Systems Narrative: - CONSTITUTIONAL: Denies weight loss, fever and chills. - HEENT: Denies changes in vision and hearing. - RESPIRATORY: Denies SOB and cough. - CV: Denies palpitations and CP. - GI: As above - : Denies dysuria and urinary frequency. - MSK: Denies myalgia and joint pain. - SKIN: Denies rash and pruritus. - NEUROLOGICAL: Denies headache, weakness, numbness and syncope. - PSYCHIATRIC: Denies suicidal ideation [facility] ED PFSH: Medical History Abnormal chest xray Acid reflux Acute bacterial sinusitis Acute kidney injury Adrenal insufficiency CHF (congestive heart failure) Chronic use of steroids COPD (chronic obstructive pulmonary disease) Decreased GFR Dehydration Diverticulosis Elevated platelet count Fibromyalgia Gastritis and duodenitis Ground glass opacity present on imaging of lung Heart disease Hiatal hernia Insomnia Lupus PCK (polycystic kidney disease) Polymyalgia rheumatica Positive ANASTASIA (antinuclear antibody) Right forearm injury Sepsis Shortness of breath Type 2 diabetes mellitus Type 2 diabetes mellitus Surgical History History of colonoscopy with polypectomy 2011 Status post angioplasty with stent Dr Kay 2014 Status post cholecystectomy Status post hernia repair Family History Father Diabetes CAD (coronary artery disease) Lung disease Family/Other Dementia Lung disease Sister Suicide Denies family history of Stroke Social History Smoking and tobacco status: current every day smoker cigarettes Packs smoked per day: 2 Years cigarettes smoked: 30 Second hand smoke exposure: No Smoking risk assessment/counseling performed?: Yes Alcohol intake: former Counseling given: No Counseling given: No Lives independently: Yes Household members: none Marital status: Current occupational status: disabled History of recent travel: No Current gender identity: Male Physical Exam Narrative: EXAM NARRATIVE: - GENERAL: Alert and oriented x 3. No acute distress. Well-nourished. - EYES: EOMI. Anicteric. - HENT: Atraumatic, no C-spine tenderness. Moist mucous membranes. No scleral icterus. No cervical lymphadenopathy. - LUNGS: Clear to auscultation bilaterally. No accessory muscle use. Equal lung sounds bilaterally. No respiratory distress. - CARDIOVASCULAR: Regular rate and rhythm. No murmur. No JVD. - ABDOMEN: Soft, diffuse tenderness, non-distended. Negative CVA tenderness bilaterally, no rebound or guarding, negative Head sign. No palpable masses. - EXTREMITIES: No edema. Non-tender. - SKIN: No rashes or lesions. Warm. - NEUROLOGIC: No meningismus or focal neurological deficits. CN II-XII grossly intact. - PSYCHIATRIC: Cooperative. Appropriate mood and affect. Course Vital Signs: Vital signs: Vital Signs Temperature 97.2 F L 05/22/21 11:52 Pulse Rate 89 05/22/21 14:04 Respiratory Rate 19 H 05/22/21 14:04 Blood Pressure 159/115 05/22/21 14:04 Pulse Oximetry 99 05/22/21 14:04 MDM - Abdominal Pain Medical Decision Making 55-year-old presents due to abdominal pain nausea and vomiting. He has longstanding history of diarrhea and denies recent change in stool pattern. CT scan reveals known polycystic kidneys but no other acute abnormality. Prescription for Reglan provided. Tolerated p.o. challenge. Otherwise she has mild hyperkalemia to 5.2 without EKG changes instructed on potassium restriction at home. She also has hyponatremia to 124 but this is similar to his previous baseline he does not have any focal mental status change seizure activity or altered mental status and believe hypertonic saline is required at this time. Instructed to increase salt intake at home. At this time I believe patient would be safe for discharge and outpatient follow-up. Return precautions provided. Plan was reviewed with the patient who expressed understanding. Questions answered. Patient will follow up with PCP. Patient discharged in stable condition. Lab Data : 05/22/21 11:45 05/22/21 11:45 Labs/Radiology: Laboratory Results WBC 10.3 10^3/uL (4.0-10.0) H 05/22/21 11:45 RBC 4.76 10^6/uL (4.1-5.3) 05/22/21 11:45 Hgb 14.1 g/dL (11.7-16.6) 05/22/21 11:45 Hct 41.2 % (42.0-52.0) L 05/22/21 11:45 MCV 86.6 fl (80-94) 05/22/21 11:45 MCH 29.6 pg (28.0-34.0) 05/22/21 11:45 MCHC 34.2 g/dL (30.0-36.0) 05/22/21 11:45 RDW 14.1 % (12.1-15.1) 05/22/21 11:45 Plt Count 259 10^3/cmm (130-400) 05/22/21 11:45 MPV 9.3 fL (7.4-10.4) 05/22/21 11:45 Neut % (Auto) 86.3 % 05/22/21 11:45 Lymph % (Auto) 9.9 % 05/22/21 11:45 [place] % (Auto) 3.1 % 05/22/21 11:45 Eos % (Auto) 0.2 % 05/22/21 11:45 Baso % (Auto) 0.2 % 05/22/21 11:45 Neut # (Auto) 8.87 10^3/uL (1.8-7.7) H 05/22/21 11:45 Lymph # (Auto) 1.0 10^3/uL (0.8-4.8) 05/22/21 11:45 [place] # (Auto) 0.3 10^3/uL (0.2-0.9) 05/22/21 11:45 Eos # (Auto) 0.0 10^3/uL (0.0-0.8) 05/22/21 11:45 Baso # (Auto) 0.0 10^3/uL (0.0-0.1) 05/22/21 11:45 Nucleated RBC % (auto) 0 % 05/22/21 11:45 Nucleated RBCs # 0.0 /100WBC 05/22/21 11:45 Sodium 124 mmol/L (136-145) L 05/22/21 11:45 Potassium 5.2 mmol/L (3.5-5.1) H 05/22/21 11:45 Chloride 91 mmol/L (98-107) L 05/22/21 11:45 Carbon Dioxide 21 mmol/L (22-29) L 05/22/21 11:45 Anion Gap 17.2 (5-19) 05/22/21 11:45 BUN 16 mg/dL (6-20) 05/22/21 11:45 Creatinine 1.5 mg/dL (0.7-1.2) H 05/22/21 11:45 GFR Calculation 48.8 mL/min (90-130) L 05/22/21 11:45 Glucose 85 mg/dL (65-115) 05/22/21 11:45 POC Glucose 86 mg/dL (70-110) 05/22/21 11:43 Calculated Osmolality 258 mOsm/kg (285-295) L 05/22/21 11:45 Lactate 0.9 mmol/L (0.5-2.2) 05/22/21 11:45 Calcium 9.4 mg/dL (8.5-10.5) 05/22/21 11:45 Total Bilirubin 0.2 mg/dL (0.15-1.2) 05/22/21 11:45 AST 42 U/L (0-40) H 05/22/21 11:45 ALT 21 U/L (0-41) 05/22/21 11:45 Alkaline Phosphatase 62 IU/L (40-130) 05/22/21 11:45 Total Protein 6.8 g/dL (6.6-8.7) 05/22/21 11:45 Albumin 4.1 g/dL (3.5-5.2) 05/22/21 11:45 Globulin 2.7 g/dL (1.3-4.6) 05/22/21 11:45 Lipase 37 U/L (13-60) 05/22/21 11:45 Urine Color Yellow (Yellow) 05/22/21 13:15 Urine Appearance Clear (CLEAR) 05/22/21 13:15 Urine pH 6.5 (5-7) 05/22/21 13:15 Ur Specific [place] 1.010 (1.005-1.030) 05/22/21 13:15 Urine Protein Neg (Negative) 05/22/21 13:15 Urine Glucose (UA) Norm (Normal) 05/22/21 13:15 Urine Ketones 1+ (Negative) H 05/22/21 13:15 Urine Blood Trace (Negative) H 05/22/21 13:15 Urine Nitrate Negative (Negative) 05/22/21 13:15 Urine Bilirubin Neg (Negative) 05/22/21 13:15 Urine Urobilinogen Norm mg/dL (Negative) 05/22/21 13:15 Ur Leukocyte Esterase Negative (Negative) 05/22/21 13:15 Urine RBC 0-4 /hpf (0-2) H 05/22/21 13:15 Urine WBC Rare /hpf (0-5) 05/22/21 13:15 Ur Squamous Epith Cells Rare /hpf (0-5) 05/22/21 13:15 Amorphous Sediment Not Reportable 05/22/21 13:15 Urine Bacteria Trace /hpf (NONE) 05/22/21 13:15 Urine Opiates Screen Positive ng/mL (Negative) H 05/22/21 13:15 Ur Barbiturates Screen Negative ng/mL (Negative) 05/22/21 13:15 Ur Phencyclidine Scrn Negative ng/mL (Negative) 05/22/21 13:15 Ur Amphetamines Screen Negative ng/mL (Negative) 05/22/21 13:15 U Benzodiazepines Scrn Positive ng/mL (Negative) H 05/22/21 13:15 Urine Cocaine Screen Negative ng/mL (Negative) 05/22/21 13:15 U Marijuana (THC) Screen Negative ng/mL (Negative) 05/22/21 13:15 EKG Data EKG 1: Other EKG comments: Sinus rhythm with occasional supraventricular complexes, rate of 76, T wave inversions in aVL, no sign of acute ischemia or other acute abnormality. Discharge Plan Discharge Patient Disposition: Home Clinical Impression: Abdominal pain Condition: Stable Prescriptions: New Reglan 10 mg tablet 10 mg PO Q8H 3 Days Qty: 9 0RF No Action albuterol sulfate 1.25 mg/3 mL solution for nebulization 1.25 mg inhalation Q6H PRN (Reason: bronchospasm) 30 Days Qty: 90 1RF Anoro Ellipta 62.5-25 mcg/actuation blister with device 1 inh inhalation DAILY 30 Days Qty: 60 3RF temazepam 15 mg capsule 15 mg PO BEDTIME 30 Days Qty: 30 2RF (DME) glucometer testing kit See Rx Instructions .Route .MEDSUPPLY Qty: 1 0RF Rx Instructions: glucometer testing kit, check BS TID lancets #100 strips# 100 sucralfate [Carafate] 1 gram tablet 1 g PO BID 30 Days Qty: 60 0RF isosorbide mononitrate 30 mg tablet extended release 24 hr 30 mg PO DAILY 30 Days Qty: 30 5RF prednisone 10 mg tablet 10 mg PO DAILY Qty: 90 1RF benzonatate [Tessalon Perles] 100 mg capsule 100 mg PO TID PRN (Reason: cough) 30 Days Qty: 90 2RF Brilinta 90 mg tablet 90 mg PO BID Qty: 180 0RF Hold Instructions: Resume on 03/30/21. acetaminophen-codeine 300-30 mg tablet 1 tab PO TID PRN (Reason: pain) Qty: 60 1RF hydroxychloroquine 200 mg tablet 200 mg PO DAILY Qty: 90 1RF prednisone 5 mg tablet See Rx Instructions PO DAILY Qty: 90 1RF Rx Instructions: take 1.5 tabs for 1 month then stay on 1 tab daily PO daily; atovaquone 750 mg/5 mL suspension 1,500 mg PO DAILY Qty: 210 2RF Hold Instructions: Adverse Reaction Rx Instructions: must administer with food, preferably a high-fat meal azithromycin 500 mg tablet 500 mg PO DAILY 30 Days Qty: 30 3RF ethambutol 400 mg tablet 1,000 mg PO DAILY 30 Days Qty: 75 3RF rifampin 300 mg capsule 600 mg PO DAILY 30 Days Qty: 60 3RF metoprolol succinate 50 mg tablet extended release 24 hr 50 mg PO BID Qty: 180 3RF nitroglycerin 0.4 mg tablet, sublingual 0.4 mg sublingual Q5M PRN (Reason: chest pain) 30 Days Qty: 30 0RF Rx Instructions: do not exceed 3 doses per episode gabapentin 600 mg tablet 600 mg PO TID 90 Days Qty: 270 1RF metformin 500 mg tablet 1,000 mg PO DAILY PRN (Reason: Hyperglycemia) Qty: 90 1RF pantoprazole 40 mg tablet,delayed release (DR/EC) See Rx Instructions .ROUTE .COMPLEX Qty: 90 0RF Dose Instruction: TAKE ONE TABLET BY MOUTH EVERY DAY Rx Instructions: TAKE ONE TABLET BY MOUTH EVERY DAY atorvastatin 40 mg tablet 40 mg PO DAILY Qty: 100 3RF lisinopril 20 mg tablet 20 mg PO DAILY 0RF albuterol sulfate 90 mcg/actuation HFA aerosol inhaler 2 puff INHALATION Q4H PRN (Reason: Shortness Of Breath) 0RF cholecalciferol (vitamin D3) [Vitamin D3] 25 mcg (1,000 unit) Capsule 25 mcg PO DAILY Qty: 0 0RF Discharge Orders: Discharge ED (Routine); Ordered 05/22/21 Ordered By: Heri Soriano Referrals: Jarred Hatch MD [Primary Care Provider] - 1-3 days Patient Instructions: Abdominal Pain (ED), Opioid Safety Coding Level of Care Code ED Board Certified Behavioral Analyst for David Wick
[2021-05-22 11:46] LABS: Glucose Point of Care 86 mg/dL (70-110)
[2021-05-22 11:59] LABS: Basophils % 0.2 %; Eosinophils % 0.2 %; Hematocrit 41.2 % (42.0-52.0); Hemoglobin 14.1 g/dL (11.7-16.6); Lymphocytes % 9.9 %; Mean Corpuscular HGB Conc 34.2 g/dL (30.0-36.0); Mean Corpuscular Hemoglobin 29.6 pg (28.0-34.0); Mean Corpuscular Volume 86.6 fl (80-94); Mean Platelet Volume 9.3 fL (7.4-10.4); Monocytes # 0.3 10^3/uL (0.2-0.9); Monocytes % 3.1 %; Neutrophils # 8.87 10^3/uL (1.8-7.7); Neutrophils % 86.3 %; Nucleated Red Blood Cells % 0 %; Platelet Count 259 10^3/cmm (130-400); Red Blood Count 4.76 10^6/uL (4.1-5.3); Red Cell Distribution Width 14.1 % (12.1-15.1); White Blood Count 10.3 10^3/uL (4.0-10.0)
[2021-05-22 12:17] LABS: Lactate (Lactic Acid level) 0.9 mmol/L (0.5-2.2)
[2021-05-22 12:26] LABS: Albumin Level 4.1 g/dL (3.5-5.2); Alkaline Phosphatase 62 IU/L (40-130); Blood Urea Nitrogen 16 mg/dL (6-20); Calcium 9.4 mg/dL (8.5-10.5); Carbon Dioxide 21 mmol/L (22-29); Chloride 91 mmol/L (98-107); Globulin 2.7 g/dL (1.3-4.6); Glomerular Filtration Rate 48.8 mL/min (90-130); Glucose 85 mg/dL (65-115); Lipase 37 U/L (13-60); Osmolality Calculated 258 mOsm/kg (285-295); Sodium 124 mmol/L (136-145); Total Bilirubin 0.2 mg/dL (0.15-1.2); Total Protein 6.8 g/dL (6.6-8.7)
[2021-05-22 12:27] LABS: Alanine Aminotransferase 21 U/L (0-41); Anion Gap 17.2 (5-19); Aspartate Amino Transferase 42 U/L (0-40); Potassium 5.2 mmol/L (3.5-5.1)
[2021-05-22] MEDS: ondansetron 2 mg/ML SDV 2 mL 4 MG IVP (12:43)
[2021-05-22] MEDS: sodium chloride 0.9% 1,000 ML 999 ML IV ×2 (12:43→14:47)
[2021-05-22] MEDS: morphine 4 mg/mL SDV 1 mL IVP (12:43)
--- NOTE | 2021-05-22 12:52 | PC.NURSE ---
Patient requested to use urinal. patient agreed to stay in bed to use urinal.
[2021-05-22 13:49] LABS: Amphetamines Screen Urine Negative (Negative); Barbiturates Screen Urine Negative (Negative); Benzodiazepines Screen Urine Positive (Negative); Cocaine Screen Urine Negative (Negative); Opiate Screen Urine Positive (Negative); PCP Screen Urine Negative (Negative); THC Screen Urine Negative (Negative)
[2021-05-22 14:06] LABS: Add Urine Culture? No; Bacteria Urine TRACE /hpf; Bilirubin Urine Neg (Negative); Blood Urine Trace (Negative); Glucose Urine UA Norm (Normal); Ketones Urine 1+ (Negative); Leukocyte Esterase Urine Negative (Negative); Nitrate Urine Negative (Negative); Protein Urine Neg (Negative); RBC Urine 0-4 /hpf (0-2); Squamous Epithelial Cell Urine RARE /hpf (0-5); Urine Appearance Clear (CLEAR); Urine Color Yellow (Yellow); Urobilinogen Urine Norm (Negative); WBC Urine RARE /hpf (0-5); pH Urine 6.5 (5-7)
--- NOTE | 2021-05-22 14:27 | PC.NURSE ---
Patient did not need straight cath, patient was able to urinate and provide sample by voiding.
--- NOTE | 2021-05-22 15:03 | PC.NURSE ---
Pending discharge waiting for second bolus to complete.
--- NOTE | 2021-05-22 15:14 | PC.NURSE ---
Fluids infusing at this time.
--- NOTE | 2021-05-22 15:27 | PC.NURSE ---
Half bag of 2nd bag of fluids infused.
--- NOTE | 2021-05-22 15:54 | PC.NURSE ---
Patient states he feels like his sugar is low. RN asked Dr. Soriano, he stated to recheck his blood sugar and give snack, IV fluids are almost complete.
[2021-05-22 16:01] LABS: Glucose Point of Care 66 mg/dL (70-110)
--- NOTE | 2021-05-22 16:01 | PC.NURSE ---
Patient blood sugar 66, Dr. Soriano notified, instructed to give snack jello and peanut butter.
[2021-05-22 16:50] LABS: Glucose Point of Care 132 mg/dL (70-110)
[2021-05-23 06:57] LABS: Glucose Point of Care 113 mg/dL (70-110)
== END 2021-05-22 17:14 | disposition home or self-care (01) ==
PROVIDERS: Emergency Provider Emergency Medicine; PCP Family Medicine
DX: R10.9 Unspecified abdominal pain (principal); E87.5 Hyperkalemia; E87.1 Hypo-osmolality and hyponatremia; E11.9 Type 2 diabetes mellitus without complications; K21.9 Gastro-esophageal reflux disease without esophagitis; F17.210 Nicotine dependence, cigarettes, uncomplicated; Z79.899 Other long term (current) drug therapy
CPT/HCPCS: 36416; 74176; 80053; 80306; 81001; 82962; 83605; 83690; 85025; 93005; 96361; 96374; 96375; 99284; J2270; J2405; J7030

== ENCOUNTER 2021-05-28 13:41 | Outpatient (CLI) | payer MEDICARE, MEDICAID, SELFPAY ==
--- NOTE | 2021-05-28 13:45 | USCV_ITS ---
Arelis Hardin Age: 55 Gender: M : 1965 Exam Date: 05/28/2021 14:20 Ordering Phys: Sarah Kay MD ([email or web address]) Technologist: Yolande Glover [place] [facility] [place]ication: CCA STENOSIS Risk Factors: Unknown Previous Vascular Surgery: None Right Brachial BP: / Left Brachial BP: / Right Left Velocity (cm/s) Spectral Plaque Velocity (cm/s) Spectral Plaque Syst/Diast Broadening Syst/Diast Broadening 125.70/35.30 Prox CCA 80.80 / 19.40 115.80/38.60 Mid CCA 64.40 / 17.40 71.70/ 18.70 Distal CCA 78.70 / 22.50 Hetro 102.00/32.55 Prox ICA 86.90 / 31.70 Hetro 87.20/ 34.70 Mid ICA 93.10 / 32.70 Hetro 60.90/ 21.00 Distal ICA 79.80 / 35.80 119.10 ECA 86.90 0.75 ICA/CCA 1.44 Antegrade Vertebral Antegrade 50.20/ 19.90 cm/s 16.60/ 7.10 cm/s Tri Subclavian Tri 82.80 122.7 0 FINDINGS Mild to moderate plaque at the bifurcations and proximal internal carotid arteries bilaterally Intimal thickening in the common carotid arteries bilaterally Antegrade flow in the vertebral arteries bilaterally. Normal Doppler flow velocities in the external carotid, vertebral and subclavian arteries bilaterally CONCLUSIONS Mild to moderate plaques at the bifurcations and proximal internal carotid arteries bilaterally, suggesting less than 50% stenosis. No significant stenosis in the other extracranial vessels mentioned above. Dr Sarah Kay MD [facility] (Electronically Signed) Final Date: 29 May 2021 13:40 S
== END 2021-05-28 13:42 | disposition home or self-care (01) ==
LOC: RAD 13:43
PROVIDERS: PCP Family Medicine; Visit Provider Internal Medicine Cardiovascular Disease
DX: I65.23 Occlusion and stenosis of bilateral carotid arteries (principal)
CPT/HCPCS: 93880

== ENCOUNTER → 2021-05-29 10:00 | Outpatient (BNVA) | payer MEDICARE, MEDICAID, SELFPAY | PROVIDERS: PCP Family Medicine; Visit Provider Internal Medicine | DX: E87.1 Hypo-osmolality and hyponatremia (principal) | CPT/HCPCS: 82533; 84146; 84403; 84443 ==

== ENCOUNTER → 2021-06-04 10:04 | Outpatient (BNVA) | payer MEDICARE, MEDICAID, SELFPAY | PROVIDERS: PCP Family Medicine; Referring Provider Family Medicine; Visit Provider Anesthesiology Pain Medicine | DX: G89.29 Other chronic pain (principal); M54.12 Radiculopathy, cervical region; M54.16 Radiculopathy, lumbar region; F17.210 Nicotine dependence, cigarettes, uncomplicated; Z79.891 Long term (current) use of opiate analgesic | CPT/HCPCS: 72050; 99204; 99205 ==

== ENCOUNTER → 2021-06-06 10:00 | Outpatient (BNVA) | payer MEDICARE, MEDICAID, SELFPAY | PROVIDERS: PCP Family Medicine; Visit Provider Internal Medicine Critical Care Medicine | DX: A31.0 Pulmonary mycobacterial infection (principal); J44.9 Chronic obstructive pulmonary disease, unspecified; F17.210 Nicotine dependence, cigarettes, uncomplicated; E11.8 Type 2 diabetes mellitus with unspecified complications; I50.9 Heart failure, unspecified; R05.3 Chronic cough; Z79.52 Long term (current) use of systemic steroids; E87.1 Hypo-osmolality and hyponatremia | CPT/HCPCS: 99214 ==

== ENCOUNTER → 2021-06-12 11:01 | Outpatient (BNVA) | payer MEDICARE, MEDICAID, SELFPAY | PROVIDERS: PCP Family Medicine; Visit Provider Surgery | DX: Z09 Encounter for follow-up examination after completed treatment for conditions other than malignant neoplasm (principal) ==

== ENCOUNTER 2021-06-25 12:50 | Emergency (ER) | payer MEDICARE, MEDICAID, SELFPAY ==
[2021-06-25 12:56] VITALS: BP 117/77; PULSE 113; RESP 16; TEMP 37; O2SAT 98
--- NOTE | 2021-06-25 14:57 | ECG_ITS ---
[facility] Test Date: 2021-06-25 Pat Name: Arelis Hardin Department: Room: Gender: Male Field Collector: : 1965 Requested By: Antony Negrete Order Number: [id number] Paola MD: Paul Braun M.D. Measurements Intervals [place] Rate: 98 P: 86 WA: 137 QRS: 88 QRSD: 82 T: 88 QT: 320 QTc: 410 Interpretive Statements SINUS RHYTHM MARKED ST ELEVATION, EARLY REPOLARIZATION Compared to ECG 05/22/2021 11:42:21 ST (T wave) deviation now present Myocardial infarct finding now present Electronically Signed On 06-25-2021 17:23:54 CDT by Paul Braun M.D. [id number]
[2021-06-25 15:32] VITALS: BP 117/75; PULSE 82; RESP 18; O2SAT 97
--- NOTE | 2021-06-25 15:38 | W.ED.DIZZY ---
HPI - Dizziness General: Chief Complaint: Dizziness Stated Complaint: Dr sent pt over for some fluids. Pt has note Time Seen by Provider: 06/25/21 14:50 History of Present Illness: HPI Narrative: 55-year-old male with multiple medical problems and with concerns of volume depletion and dehydration. He has a variety of different symptoms including some dizziness especially when he stands up quickly. He was seen by his primary care physician and referred him to the emergency department for evaluation of labs and IV fluids. He has had this several times in the past and has been low on sodium and magnesium. The patient takes a variety of different medications including several antibiotics for Mycobacterium infection. Patient reports mild headache but no neck pain or fever. He has not had a skin rash. Mild nausea but no vomiting or diarrhea that is different than normal. The patient does have some chronic diarrhea issues. Review of Systems General: Reports: 10 or more systems reviewed and unremarkable except in HPI and below PFSH ED PFSH: Medical History Abnormal chest xray Acid reflux Acute bacterial sinusitis Acute kidney injury Adrenal insufficiency CHF (congestive heart failure) Chronic use of steroids COPD (chronic obstructive pulmonary disease) Decreased GFR Dehydration Diverticulosis Elevated platelet count Fibromyalgia Gastritis and duodenitis Ground glass opacity present on imaging of lung Heart disease Hiatal hernia Insomnia Lupus PCK (polycystic kidney disease) Polymyalgia rheumatica Positive ANASTASIA (antinuclear antibody) Right forearm injury Sepsis Shortness of breath Type 2 diabetes mellitus Type 2 diabetes mellitus Surgical History History of colonoscopy with polypectomy 2011 Status post angioplasty with stent Dr Kay 2014 Status post cholecystectomy Status post hernia repair Family History Father Diabetes CAD (coronary artery disease) Lung disease Family/Other Dementia Lung disease Sister Suicide Denies family history of Stroke Social History Smoking and tobacco status: current every day smoker (1.5 ppd) cigarettes Packs smoked per day: 2 Years cigarettes smoked: 38 [ Other cigarette details: started at age 17] Second hand smoke exposure: No Smoking risk assessment/counseling performed?: Yes Alcohol intake: former Counseling given: No Counseling given: No Lives independently: Yes Household members: none Marital status: Current occupational status: disabled History of recent travel: No Current gender identity: Male Physical Exam Const: COMMON NORMALS: no acute distress, average body habitus, patient oriented x3 and alert HENMT: COMMON NORMALS: normocephalic HEAD & SCALP: normocephalic Eye: COMMON NORMALS: Equal, round and reactive pupils present, EOMs intact bilaterally and conjunctivae normal CONJUNCTIVA: Yes conjunctivae normal PUPIL: Yes Equal, round and reactive pupils present Neck/C-Spine: COMMON NORMALS: full ROM, no lymphadenopathy, supple and no meningeal signs Chest: COMMONS NORMALS: normal inspection of the chest and normal palpation of entire chest wall Resp: COMMON NORMALS: normal respiratory effort, No retractions, No use of accessory muscles and clear to auscultation bilaterally AUSCULTATION: clear to auscultation bilaterally GI: COMMON NORMALS: Normal to inspection, nondistended, normoactive bowel sounds present, Soft to palpation, non-tender and No hepatosplenomegaly present PALPATION: Yes Soft to palpation and Yes No hepatosplenomegaly present : COMMON NORMALS: Yes no CVA tenderness BLADDER/KIDNEY EXAM: Yes no CVA tenderness Back/Pelvis: COMMON NORMALS: no CVA tenderness Extremity: COMMON NORMALS: normal to inspection, capillary refill normal and no clubbing, cyanosis or edema Neuro: COMMON NORMALS: patient oriented x3 SENSORIUM/ORIENTATION: Yes alert MENINGEAL SIGNS: Yes no meningeal signs Skin: COMMON NORMALS: no rashes or lesions noted, no wounds and turgor normal GENERAL SKIN EXAM: no rashes or lesions noted and turgor normal Course ED course: 55-year-old male in with some nonspecific symptoms found to have the volume depletion and he felt significantly better after intervention in the emergency department and his pulse came down after fluid administration. We discussed his emergency department course gave recommendations to increase fluids and potassium and electrolyte containing food and drink and to follow-up with primary care. Vital Signs: Vital signs: Vital Signs Temperature 98.6 F 06/25/21 12:56 Pulse Rate 82 06/25/21 15:32 Respiratory Rate 18 06/25/21 15:32 Blood Pressure 117/75 06/25/21 15:32 Pulse Oximetry 97 06/25/21 15:32 MDM - Dizziness Medical Decision Making 55-year-old male with multiple medical problems and with some nonspecific symptoms. Symptoms would be consistent with dehydration or volume depletion we will give him some IV fluids check some routine labs per request of his primary care physician and do serial neurologic examinations and monitor his vital signs. His pulse is a little bit elevated currently. Lab Data : 06/25/21:06/25/21 Laboratory Results WBC 9.8 10^3/uL (4.0-10.0) 06/25/21 RBC 4.36 10^6/uL (4.1-5.3) 06/25/21 Hgb 13.3 g/dL (11.7-16.6) 06/25/21 Hct 40.0 % (42.0-52.0) L 06/25/21 MCV 91.7 fl (80-94) 06/25/21 MCH 30.5 pg (28.0-34.0) 06/25/21 MCHC 33.3 g/dL (30.0-36.0) 06/25/21 RDW 14.8 % (12.1-15.1) 06/25/21 Plt Count 307 10^3/cmm (130-400) 06/25/21 MPV 8.9 fL (7.4-10.4) 06/25/21 Neut % (Auto) 66.2 % 06/25/21 Lymph % (Auto) 15.3 % 06/25/21 [place] % (Auto) 9.2 % 06/25/21 Eos % (Auto) 8.3 % 06/25/21 Baso % (Auto) 0.7 % 06/25/21 Neut # (Auto) 6.47 10^3/uL (1.8-7.7) 06/25/21 Lymph # (Auto) 1.5 10^3/uL (0.8-4.8) 06/25/21 [place] # (Auto) 0.9 10^3/uL (0.2-0.9) 06/25/21 Eos # (Auto) 0.8 10^3/uL (0.0-0.8) 06/25/21 15: Baso # (Auto) 0.1 10^3/uL (0.0-0.1) 06/25/21: Nucleated RBC % (auto) 0 % 06/25/21 Nucleated RBCs # 0.0 /100WBC 06/25/21: Sodium 136 mmol/L (136-145) 06/25/21: Potassium 4.5 mmol/L (3.5-5.1) 06/25/21: Chloride 101 mmol/L (98-107) 06/25/21: Carbon Dioxide 24 mmol/L (22-29) 06/25/21 Anion Gap 15.5 (5-19) 06/25/21: BUN 26 mg/dL (6-20) H 06/25/21: Creatinine 1.9 mg/dL (0.7-1.2) H 06/25/21 GFR Calculation 37.1 mL/min (90-130) L 06/25/21 Glucose 74 mg/dL (65-115) 06/25/21 Calculated Osmolality 285 mOsm/kg (285-295) 06/25/21 Calcium 10.2 mg/dL (8.5-10.5) 06/25/21 Magnesium 2.0 mg/dL (1.7-2.3) 06/25/21 Total Bilirubin 0.2 mg/dL (0.15-1.2) 06/25/21 AST 20 U/L (0-40) 06/25/21: ALT 23 U/L (0-41) 06/25/21: Alkaline Phosphatase 60 IU/L (40-130) 06/25/21 Total Protein 7.2 g/dL (6.6-8.7) 06/25/21 Albumin 4.3 g/dL (3.5-5.2) 06/25/21: Globulin 2.9 g/dL (1.3-4.6) 06/25/21: Discharge Plan Discharge Patient Disposition: Home Clinical Impression: Chronic diarrhea, Decreased GFR, Orthostatic hypotension, Volume depletion Condition: Stable Prescriptions: No Action albuterol sulfate 1.25 mg/3 mL solution for nebulization 1.25 mg inhalation Q6H PRN (Reason: bronchospasm) 30 Days Qty: 90 1RF (DME) glucometer testing kit See Rx Instructions .Route .MEDSUPPLY Qty: 1 0RF Rx Instructions: glucometer testing kit, check BS TID lancets #100 strips# 100 azithromycin 500 mg tablet 500 mg PO DAILY 30 Days Qty: 30 3RF tizanidine 4 mg tablet 4 mg PO BID PRN (Reason: muscle spasticity) Qty: 60 0RF tramadol 100 mg tablet 100 mg PO Q6H PRN (Reason: pain) Qty: 60 5RF metoprolol succinate 50 mg tablet extended release 24 hr 25 mg PO BID Qty: 180 3RF magnesium L-lactate [Magtab] 84 mg tablet extended release 84 mg PO DAILY 30 Days Qty: 30 0RF nitroglycerin 0.4 mg tablet, sublingual 0.4 mg sublingual Q5M PRN (Reason: chest pain) 30 Days Qty: 30 0RF Rx Instructions: do not exceed 3 doses per episode atorvastatin 40 mg tablet 40 mg PO DAILY Qty: 100 3RF clopidogrel [Plavix] 75 mg tablet 75 mg PO DAILY Qty: 90 3RF acetaminophen-codeine 300-30 mg tablet 1 tab PO TID PRN (Reason: pain) Qty: 60 1RF temazepam 15 mg capsule 15 mg PO BEDTIME 30 Days Qty: 30 2RF Anoro Ellipta 62.5-25 mcg/actuation blister with device 1 inh inhalation DAILY 30 Days Qty: 60 3RF metformin 500 mg tablet 1,000 mg PO DAILY PRN (Reason: Hyperglycemia) Qty: 90 1RF prednisone 5 mg tablet 10 mg PO DAILY Qty: 90 1RF albuterol sulfate 90 mcg/actuation HFA aerosol inhaler 2 puff INHALATION Q6H PRN (Reason: Shortness Of Breath) 0RF cholecalciferol (vitamin D3) [Vitamin D3] 25 mcg (1,000 unit) Capsule 25 mcg PO DAILY Qty: 0 0RF rifampin 300 mg capsule 600 mg PO QAM 0RF pantoprazole 40 mg tablet,delayed release (DR/EC) 40 mg PO DAILY 0RF hydroxychloroquine 200 mg tablet 200 mg PO BID 0RF lisinopril 20 mg tablet 20 mg PO QAM 0RF gabapentin 600 mg tablet 600 mg PO TID 0RF ethambutol 400 mg tablet 1,000 mg PO QPM 0RF Vitamin B-12 1 tab PO DAILY 0RF Discharge Orders: Discharge ED (Routine); Ordered 06/25/21 Ordered By: Antony Negrete Referrals: Jarred Hatch MD [Primary Care Provider] - Discharge Diet: As Directed Discharge Activity: Resume usual activity Patient Instructions: Opioid Safety Activity Restrictions/Additional Instructions: 1. Check with PCP or prescriber on dose of Hydroxycholorquine 2. Push fluids and eat more potassium rich foods. 3. Follow up with PCP in 1-2 weeks for recheck Coding Level of Care Code ED Medical Staff Services Coordinator for David Wick
[2021-06-25 15:43] LABS: Basophils # 0.1 10^3/uL (0.0-0.1); Basophils % 0.7 %; Eosinophils # 0.8 10^3/uL (0.0-0.8); Eosinophils % 8.3 %; Hemoglobin 13.3 g/dL (11.7-16.6); Lymphocytes # 1.5 10^3/uL (0.8-4.8); Lymphocytes % 15.3 %; Mean Corpuscular HGB Conc 33.3 g/dL (30.0-36.0); Mean Corpuscular Hemoglobin 30.5 pg (28.0-34.0); Mean Corpuscular Volume 91.7 fl (80-94); Mean Platelet Volume 8.9 fL (7.4-10.4); Monocytes # 0.9 10^3/uL (0.2-0.9); Monocytes % 9.2 %; Neutrophils # 6.47 10^3/uL (1.8-7.7); Neutrophils % 66.2 %; Nucleated Red Blood Cells % 0 %; Platelet Count 307 10^3/cmm (130-400); Red Blood Count 4.36 10^6/uL (4.1-5.3); Red Cell Distribution Width 14.8 % (12.1-15.1); White Blood Count 9.8 10^3/uL (4.0-10.0)
[2021-06-25] MEDS: sodium chloride 0.9% 1,000 ML 999 ML IV (16:02)
[2021-06-25 16:11] LABS: Alanine Aminotransferase 23 U/L (0-41); Albumin Level 4.3 g/dL (3.5-5.2); Alkaline Phosphatase 60 IU/L (40-130); Anion Gap 15.5 (5-19); Aspartate Amino Transferase 20 U/L (0-40); Blood Urea Nitrogen 26 mg/dL (6-20); Calcium 10.2 mg/dL (8.5-10.5); Carbon Dioxide 24 mmol/L (22-29); Chloride 101 mmol/L (98-107); Globulin 2.9 g/dL (1.3-4.6); Glomerular Filtration Rate 37.1 mL/min (90-130); Glucose 74 mg/dL (65-115); Osmolality Calculated 285 mOsm/kg (285-295); Potassium 4.5 mmol/L (3.5-5.1); Sodium 136 mmol/L (136-145); Total Bilirubin 0.2 mg/dL (0.15-1.2); Total Protein 7.2 g/dL (6.6-8.7)
--- NOTE | 2021-06-25 17:04 | PC.PHAR ---
pt states he takes care of his own medications-pt states he has been taking hydroxychloroquine 200mg bid ext med history shows last filled 04/30/21 90d/s for 200mg daily-pt states he stop taking amitriptyline 25mg hs pt states he was suppose to take with gabapentin 300mg tid -pt states the amitriptyline made him feel weird so he stop taking and restarted taking gabapentin 600mg tid-pt states he hasnt discussed these changes with the dr-notes are made in the pharmacy comments
[2021-06-25 17:18] LABS: Phosphorus 6.3 mg/dL (2.5-4.5)
[2021-06-25 17:43] VITALS: BP 116/73; PULSE 18; RESP 18; TEMP 37; O2SAT 98
== END 2021-06-25 17:45 | disposition home or self-care (01) ==
PROVIDERS: Emergency Provider Family Medicine; PCP Family Medicine
DX: I95.1 Orthostatic hypotension (principal); E86.9 Volume depletion, unspecified; R19.7 Diarrhea, unspecified; R94.4 Abnormal results of kidney function studies
CPT/HCPCS: 80053; 83735; 84100; 85025; 93005; 96360; 99283; J7030

== ENCOUNTER 2021-06-29 10:02 | Outpatient (CLI) | payer MEDICARE, MEDICAID, SELFPAY ==
--- NOTE | 2021-06-29 10:15 | MR_ITS ---
WS: [id number] MRI LUMBAR SPINE NONCONTRAST HISTORY: M48.062 - Spinal stenosis, chronic back pain and bilateral leg pain. Increasing. COMPARISON: 01/01/2017 TECHNIQUE: Sagittal and axial multisequence imaging is submitted. Very mild encroachment upon the cervical cord at C3-4. L2 anterolisthesis by 5.8 mm with slight increase since the prior study. Mild progression of degenera tive disc disease at L2-3 and loss of height. No fracture or marrow edema. Mild desiccation throughout the remaining disc spaces. Conus terminates normally at L1-2 disc level. L1-L2: Normal. L2-L3: Anterolisthesis of L2 with unroofing and superior migration of the disc. There is flattening o f the thecal sac with mild ligamentum flavum disease and facet arthritis. Mild encroachment into the central canal and subarticular recesses. Mild progression of stenosis since the prior study. L3-L4: Annular disc bulging with disc contacting the traversing L4 nerve roots. Fluid in the facet meghann ints bilaterally. There is mild bilateral foraminal and subarticular recess narrowing. L4-L5: Moderate annular disc bulging with bilateral annular fissures. Facet joint arthritis and ligam entum flavum disease with fluid in the facet joints. There is very mild disc encroachment upon the tr aversing L5 nerve roots and mild bilateral foraminal stenosis. L5-S1: Mild annular disc bulging. No central stenosis. There is mild to moderate foraminal stenosis, RIGHT greater than LEFT due to facet disease and osteophyte. Very similar to the prior study. Fluid i n the facet joints bilaterally. Bilateral polycystic kidney disease. MR/MR lumbar spine wo con* [id number] IMPRESSION: 1. Mild progression of L2 anterolisthesis with progression of degenerative dis c disease. Mild central and bilateral subarticular recess stenosis with only mi nimal progression since the prior study. 2. Mild to moderate bilateral foraminal stenosis at L5-S1 as above. No change. 3. Mild disc encroachment into the subarticular recesses at L3-4 and L4-5 with contact on the traversing L4 and L5 nerve roots. No high-grade stenosis. 4. Mild bilateral foraminal stenosis at L3-4 and L4-5. 5. Moderate amount of fluid within the facet joints from L3-4 and L4-5 similar to prior studies.
--- NOTE | 2021-06-29 11:00 | MR_ITS ---
WS: [id number] MRI CERVICAL SPINE NONCONTRAST HISTORY: M54.12 - Radiculopathy, cervical region, chronic bilateral shoulder and leg pain. COMPARISON: 01/31/2017 Technique: Multiplanar, multisequence noncontrast imaging of the cervical spine. 2 mm anterolisthesis of C3. No fracture or marrow edema. Minimal narrowing of the disc spaces. Signal within the cervical cord is normal. Visualized posterior fossa is unremarkable. Craniocervical junction, C1 and C2 relationship, odontoid process and soft tissues are normal. 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 C2-C3: Normal. C3-C4: Mild osteophytic ridging and a small central disc protrusion. Small osteophytes contribute to moderate narrowing of the RIGHT foramen. Moderate RIGHT facet arthritis. C4-C5: Mild osteophytic ridging and annular disc bulging. Mild central and bilateral foraminal narrow ing. C5-C6: Mild annular disc bulging and bilateral facet joint arthritis. Very mild foraminal narrowing. C6-C7: Very mild annular disc bulging and small foraminal osteophytes. C7-T1: Shallow central disc protrusion and small foraminal osteophytes. Paraspinal soft tissue are normal. MR/MR cervical spin wo con* [id number] IMPRESSION: 1. No high-grade central stenosis or large disc protrusion. 2. Moderate RIGHT foraminal narrowing at C3-4 predominantly due to osteophyte disease. Moderate facet joint arthritis on the RIGHT. 3. Mild central and bilateral foraminal stenosis at C4-5. 4. Shallow central disc protrusion at C7-T1 with small foraminal osteophytes. 5. Stable pineal cyst.
== END 2021-06-29 10:03 | disposition home or self-care (01) ==
PROVIDERS: PCP Family Medicine; Visit Provider Anesthesiology Pain Medicine
DX: M48.062 Spinal stenosis, lumbar region with neurogenic claudication (principal); M54.12 Radiculopathy, cervical region; M51.36 Other intervertebral disc degeneration, lumbar region; M48.02 Spinal stenosis, cervical region; M50.23 Other cervical disc displacement, cervicothoracic region; E34.8 Other specified endocrine disorders
CPT/HCPCS: 72141; 72148

== ENCOUNTER → 2021-07-22 10:26 | Outpatient (BNVA) | payer MEDICARE, MEDICAID, SELFPAY | PROVIDERS: PCP Family Medicine; Visit Provider Anesthesiology Pain Medicine | DX: G89.29 Other chronic pain (principal); M54.12 Radiculopathy, cervical region; M54.16 Radiculopathy, lumbar region; Z79.891 Long term (current) use of opiate analgesic | CPT/HCPCS: 99215 ==

== ENCOUNTER → 2021-07-25 11:31 | Outpatient (BNVA) | payer MEDICARE, MEDICAID, SELFPAY | PROVIDERS: PCP Family Medicine; Visit Provider Nurse Practitioner | DX: Z20.822 Contact with and (suspected) exposure to COVID-19 (principal) | CPT/HCPCS: 87635 ==

== ENCOUNTER → 2021-08-02 00:01 | Outpatient (BNVA) | payer MEDICARE, MEDICAID, SELFPAY | PROVIDERS: PCP Family Medicine; Visit Provider Nurse Practitioner | DX: J02.9 Acute pharyngitis, unspecified (principal); E86.0 Dehydration | CPT/HCPCS: 87070 ==

== ENCOUNTER → 2021-08-06 14:24 | Outpatient (BNVA) | payer MEDICARE, MEDICAID, SELFPAY | PROVIDERS: PCP Family Medicine; Visit Provider Anesthesiology Pain Medicine | DX: G89.29 Other chronic pain (principal); M54.2 Cervicalgia; Z79.891 Long term (current) use of opiate analgesic; M47.816 Spondylosis without myelopathy or radiculopathy, lumbar region | CPT/HCPCS: 64493; 64494; 64495; J3490 ==

== ENCOUNTER 2021-08-13 14:41 | Outpatient (CLI) | payer MEDICARE, MEDICAID, SELFPAY ==
[2021-08-13 15:27] LABS: Basophils # 0.1 10^3/uL (0.0-0.1); Basophils % 1.1 %; Eosinophils # 0.8 10^3/uL (0.0-0.8); Eosinophils % 6.8 %; Hematocrit 38.9 % (42.0-52.0); Hemoglobin 13.3 g/dL (11.7-16.6); Lymphocytes # 1.8 10^3/uL (0.8-4.8); Lymphocytes % 15.7 %; Mean Corpuscular HGB Conc 34.2 g/dL (30.0-36.0); Mean Corpuscular Hemoglobin 30.9 pg (28.0-34.0); Mean Corpuscular Volume 90.3 fl (80-94); Mean Platelet Volume 8.4 fL (7.4-10.4); Monocytes # 0.8 10^3/uL (0.2-0.9); Monocytes % 7.2 %; Neutrophils # 7.83 10^3/uL (1.8-7.7); Neutrophils % 68.9 %; Nucleated Red Blood Cells % 0 %; Platelet Count 411 10^3/cmm (130-400); Red Blood Count 4.31 10^6/uL (4.1-5.3); Red Cell Distribution Width 16.1 % (12.1-15.1); White Blood Count 11.4 10^3/uL (4.0-10.0)
[2021-08-13 15:34] LABS: Bilirubin Urine Neg (Negative); Blood Urine Neg (Negative); Glucose Urine UA Norm (Normal); Ketones Urine Negative (Negative); Leukocyte Esterase Urine Negative (Negative); Nitrate Urine Negative (Negative); Protein Urine Neg (Negative); Urine Appearance Clear (CLEAR); Urine Color Yellow (Yellow); Urobilinogen Urine Norm (Negative); pH Urine 5 (5-7)
[2021-08-13 15:39] LABS: WBC Urine 0-4 /hpf (0-5)
[2021-08-13 15:40] LABS: Add Urine Culture? No
[2021-08-13 15:42] LABS: Urine Creatinine 43 mg/dL (39-259); Urine Protein Random 8 mg/dL
[2021-08-13 15:47] LABS: Alanine Aminotransferase 15 U/L (0-41); Albumin Level 4.3 g/dL (3.5-5.2); Alkaline Phosphatase 72 IU/L (40-130); Aspartate Amino Transferase 22 U/L (0-40); C Reactive Protein 13.8 mg/L (0.0-4.9); Globulin 2.5 g/dL (1.3-4.6); Glomerular Filtration Rate 39.5 mL/min (90-130); Total Bilirubin 0.3 mg/dL (0.15-1.2); Total Protein 6.8 g/dL (6.6-8.7)
[2021-08-15 18:49] LABS: Erythrocyte Sedimentation Rate 19 mm/hr (0-10)
== END 2021-08-13 14:42 | disposition home or self-care (01) ==
LOC: LAB 14:45
PROVIDERS: PCP Family Medicine; Visit Provider Internal Medicine Rheumatology
DX: G89.29 Other chronic pain (principal); M47.816 Spondylosis without myelopathy or radiculopathy, lumbar region; M54.2 Cervicalgia; Z79.891 Long term (current) use of opiate analgesic
CPT/HCPCS: 64493; 64494; 64495; 80076; 81001; 82565; 82570; 84156; 85025; 85651; 86140; J3490

== ENCOUNTER 2021-08-28 08:09 | Outpatient (CLI) | payer MEDICARE, MEDICAID, SELFPAY ==
--- NOTE | 2021-08-28 12:36 | PFTS_ITS ---
Date of Study:08/28/21 Date of Dictation: 08/31/2021 MECHANICS: Postbronchodilator forced vital capacity (FVC) is normal. Postbronchodilator forced expiratory volume in one second (FEV1) is normal. FEV1/FVC is reduced. There is no significant postbronchodilator response FLOW VOLUME LOOP: Sloping of expiratory limb suggestive of airway obstruction . LUNG VOLUMES: Total lung capacity (TLC) is normal. Residual volume (RV) is reduced. DIFFUSING CAPACITY FOR CARBON MONOXIDE: Moderately reduced . INTERPRETATION: The pulmonary function test has mixed pattern with spirometry suggestive of mild obstructive ventilatory defect. Lung volumes suggestive of mild restriction. There is no significant postbronchodilator response. There is moderate gas transfer defect. Clinical correlation recommended. [facility]
== END 2021-08-28 08:10 | disposition home or self-care (01) ==
LOC: RT 08:11
PROVIDERS: PCP Family Medicine; Visit Provider Internal Medicine Critical Care Medicine
DX: J44.9 Chronic obstructive pulmonary disease, unspecified (principal)
CPT/HCPCS: 94060; 94726; 94729; J7614

== ENCOUNTER → 2021-08-29 09:41 | Outpatient (BNVA) | payer MEDICARE, MEDICAID, SELFPAY | PROVIDERS: PCP Family Medicine; Visit Provider Internal Medicine Rheumatology | DX: M35.3 Polymyalgia rheumatica (principal); Q61.3 Polycystic kidney, unspecified; L21.9 Seborrheic dermatitis, unspecified; Z79.899 Other long term (current) drug therapy; Z79.52 Long term (current) use of systemic steroids | CPT/HCPCS: 99214 ==

== ENCOUNTER → 2021-09-02 11:03 | Outpatient (BNVA) | payer MEDICARE, MEDICAID, SELFPAY | PROVIDERS: PCP Family Medicine; Visit Provider Anesthesiology Pain Medicine | DX: G89.29 Other chronic pain (principal); M54.12 Radiculopathy, cervical region; M54.16 Radiculopathy, lumbar region; M79.606 Pain in leg, unspecified; F17.210 Nicotine dependence, cigarettes, uncomplicated | CPT/HCPCS: 99214 ==

== ENCOUNTER 2021-09-19 09:26 | Outpatient (CLI) | payer MEDICARE, MEDICAID, SELFPAY ==
[2021-09-19 11:03] LABS: 25 Hydroxy Vitamin D 92 ng/mL (30-100)
[2021-09-20 14:53] LABS: Cyclic Citrullinated Peptide <16 UNITS
[2021-09-20 15:49] LABS: Thyroid Peroxidase Antobodies <1 IU/mL (<9)
== END 2021-09-19 09:27 | disposition home or self-care (01) ==
LOC: LAB 09:28
PROVIDERS: PCP Family Medicine; Visit Provider Internal Medicine Rheumatology
DX: M19.90 Unspecified osteoarthritis, unspecified site (principal); Z79.899 Other long term (current) drug therapy; M47.816 Spondylosis without myelopathy or radiculopathy, lumbar region
CPT/HCPCS: 36415; 64635; 82306; 84439; 86200; 86376; 86431

== ENCOUNTER → 2021-10-07 13:41 | Outpatient (BNVA) | payer MEDICARE, MEDICAID, SELFPAY | PROVIDERS: PCP Family Medicine; Visit Provider Anesthesiology Pain Medicine | DX: G89.29 Other chronic pain (principal); E11.9 Type 2 diabetes mellitus without complications; M54.2 Cervicalgia; F17.210 Nicotine dependence, cigarettes, uncomplicated; Z79.84 Long term (current) use of oral hypoglycemic drugs; M47.816 Spondylosis without myelopathy or radiculopathy, lumbar region | CPT/HCPCS: 36416; 64635; 64636; 82962; J1030 ==

== ENCOUNTER → 2021-10-22 14:23 | Outpatient (BNVA) | payer MEDICARE, MEDICAID, SELFPAY | PROVIDERS: PCP Family Medicine; Visit Provider Registered Nurse Neonatal Intensive Care | DX: Z20.822 Contact with and (suspected) exposure to COVID-19 (principal) | CPT/HCPCS: 87426 ==

== ENCOUNTER → 2021-11-14 15:54 | Outpatient (BNVA) | payer MEDICARE, MEDICAID, SELFPAY | PROVIDERS: PCP Family Medicine; Visit Provider Family Medicine | DX: I73.9 Peripheral vascular disease, unspecified (principal); I95.1 Orthostatic hypotension; K52.9 Noninfective gastroenteritis and colitis, unspecified; E86.0 Dehydration; E11.9 Type 2 diabetes mellitus without complications; F32.A Depression, unspecified | CPT/HCPCS: 80053; 83036; 83735; 84100; 85025 ==

== ENCOUNTER → 2021-11-18 13:59 | Outpatient (BNVA) | payer MEDICARE, MEDICAID, SELFPAY | PROVIDERS: PCP Family Medicine; Visit Provider Anesthesiology Pain Medicine | DX: G89.29 Other chronic pain (principal); M47.816 Spondylosis without myelopathy or radiculopathy, lumbar region; E11.9 Type 2 diabetes mellitus without complications; M54.2 Cervicalgia; Z79.84 Long term (current) use of oral hypoglycemic drugs; F17.210 Nicotine dependence, cigarettes, uncomplicated | CPT/HCPCS: 36416; 64635; 64636; 82962; J1030 ==

== ENCOUNTER → 2021-11-27 12:38 | Outpatient (BNVA) | payer MEDICARE, MEDICAID, SELFPAY | PROVIDERS: PCP Family Medicine; Visit Provider Internal Medicine | DX: I73.9 Peripheral vascular disease, unspecified (principal); E11.22 Type 2 diabetes mellitus with diabetic chronic kidney disease; N18.9 Chronic kidney disease, unspecified; Z79.84 Long term (current) use of oral hypoglycemic drugs; Z99.2 Dependence on renal dialysis | CPT/HCPCS: 93005; 99204 ==

== ENCOUNTER → 2021-12-03 10:14 | Outpatient (BNVA) | payer MEDICARE, MEDICAID, SELFPAY | PROVIDERS: PCP Family Medicine; Visit Provider Internal Medicine Rheumatology | DX: R76.8 Other specified abnormal immunological findings in serum (principal); M35.3 Polymyalgia rheumatica; Z71.85 Encounter for immunization safety counseling; Z79.899 Other long term (current) drug therapy | CPT/HCPCS: 99214 ==

== ENCOUNTER → 2021-12-12 12:00 | Outpatient (BNVA) | payer MEDICARE, MEDICAID, SELFPAY | PROVIDERS: PCP Family Medicine; Visit Provider Student in an Organized Health Care Education/Training Program | DX: A31.0 Pulmonary mycobacterial infection (principal); K52.9 Noninfective gastroenteritis and colitis, unspecified | CPT/HCPCS: 99212; 99213 ==

== ENCOUNTER → 2021-12-19 10:51 | Outpatient (BNVA) | payer MEDICARE, MEDICAID, SELFPAY | PROVIDERS: PCP Family Medicine; Visit Provider Anesthesiology Pain Medicine | DX: M54.6 Pain in thoracic spine (principal); G89.29 Other chronic pain; M54.12 Radiculopathy, cervical region; M54.16 Radiculopathy, lumbar region; M47.814 Spondylosis without myelopathy or radiculopathy, thoracic region; M47.812 Spondylosis without myelopathy or radiculopathy, cervical region; M50.90 Cervical disc disorder, unspecified, unspecified cervical region; F17.210 Nicotine dependence, cigarettes, uncomplicated; M79.606 Pain in leg, unspecified | CPT/HCPCS: 72070; 99214 ==

== ENCOUNTER → 2021-12-24 14:40 | Outpatient (BNVA) | payer MEDICARE, MEDICAID, SELFPAY | PROVIDERS: PCP Family Medicine; Visit Provider Family Medicine | DX: R58 Hemorrhage, not elsewhere classified (principal); E86.0 Dehydration; E11.9 Type 2 diabetes mellitus without complications | CPT/HCPCS: 85025 ==

== ENCOUNTER → 2021-12-27 10:02 | Outpatient (BNVA) | payer MEDICARE, MEDICAID, SELFPAY | PROVIDERS: PCP Family Medicine; Visit Provider Internal Medicine | DX: R58 Hemorrhage, not elsewhere classified (principal); E11.9 Type 2 diabetes mellitus without complications; E86.0 Dehydration | CPT/HCPCS: 80048; 85025; 85610 ==

== ENCOUNTER 2022-01-01 15:18 | Outpatient (CLI) | payer MEDICARE, MEDICAID, SELFPAY ==
[2022-01-01 16:36] VITALS: BMI 24.0
--- NOTE | 2022-01-01 17:15 | PC.NURSE ---
received into [id number] as direct admit from admissions dept.here for pre hydration prior to sced peripheral angiogram tomorrow.iv started.oriented to room environment.instructed to notify staff for any pain,concerns.pt verb understanding of instructions
[2022-01-01] MEDS: sodium chloride 0.9% 1,000 ML 100 ML IV (18:27)
[2022-01-01 20:00] VITALS: BP 112/70; PULSE 77; RESP 16; TEMP 36.8; O2SAT 93
[2022-01-02] VITALS (53 sets, daily range): BP systolic 110–155; BP diastolic 66–117; PULSE 70–102; RESP 11–23; TEMP 36.4–36.7; O2SAT 93–99
[2022-01-02] MEDS: sodium chloride 0.9% 1,000 ML 100 ML IV ×3 (03:16→19:58)
--- NOTE | 2022-01-02 07:30 | XACV_ITS ---
Ht: 183 cm Wt: 80 kg BSA: 2.02 m2 Any Known Allergies: Other Gender: Male : 1965 Exam Type: Invasive Peripheral Vascular Procedure(s): Procedure Description: Peripheral Cath Diagnostic Procedure Procedure Description: Abdominal aortic angiography Procedure Description: Iliac arterial aortic angiography Procedure Description: Lower extremities' angiography Procedure Description: Peripheral vascular Intervention Procedure Description: PV Balloon Procedure Description: PV Stent Exam Priority: Routine Abdominal Diagnostic Findings Distal abdominal aorta: Patent. Lower Extremity Diagnostic Findings INDICATION: 56-year-old man with past medical history of PAD and having severe bilateral lifestyle limiting claudication symptoms. ABIs are significantly reduced bilaterally. Plan for peripheral angiogram with possible intervention. Patient was pre admitted the night before for hydation given CKD. Right lower extremity findings: Right common iliac artery: Has severe 80 to 90% ostial stenosis Patent external iliac artery: Patent Right common femoral artery: Patent Right profunda: Patent Right SFA: Patent, has diffuse mild to moderate disease. Right popliteal artery: Patent Right TP trunk: Patent Has two-vessel runoff to the foot with a patent anterior tibial and peroneal artery. Left lower extremity findings: Left common iliac artery: Has 60 to 70% stenosis Left external iliac artery: Has moderate disease Left common femoral artery: Patent Left profunda artery: Patent Left SFA: Patent Left popliteal artery: Patent Left TP trunk: Patent Patient has two-vessel runoff to the foot with patent peroneal and anterior tibial arteries. Left Common Iliac Artery: 70% stenosis. Right Common Iliac Artery: 70% stenosis. Lower Extremity Interventional Findings Procedure detail: After diagnostic images, we decided to intervene on bilateral common iliac arteries. Bilateral 7 [place] sheaths were introduced into common femoral arteries. Iliac artery stenoses were crossed with Glidewire's. Right common iliac artery stenoses was more critical and was predilated with a 6.0 x 20 mm balloon. Following this simultaneous kissing 8.0x37mm Lifestream covered stents were placed in bilateral common iliac arteries. At this time final angiogram was performed that showed excellent stent expansion and no complications. Guidewires were removed. Sheaths were sutured in place for removal later. Patient left the Boxer Operator in a stable condition. Right Common Iliac Artery:90% stenosis treated with AB ARMADA 35 OTW [id number] and Bard Lifestream Vascular Covered Stent. 0% residual stenosis. Left Common Iliac Artery: 70% stenosis treated with Bard Lifestream Vascular Covered Stent. 0% residual stenosis. Conclusions Severe bilateral common iliac disease status post successful revascularization with simultaneous kissing stent placement with covered stents. Left Common Iliac Artery was treated with Stent. Right Common Iliac Artery was treated with Balloon and Stent. Recommendations Dual antiplatelet therapy. Aggressive risk factor modification. Outpatient cardiology follow-up in 4. Hemodynamic Data Phase:Rest AO : 106.0 / 67.0 ( 86.0 ) @ 10:44:00 AM 104.0 / 64.0 ( 83.0 ) @ 10:48:00 AM Access Site Site: Right Femoral artery Sheath Size: 6 Fr Hemost... Success: Unsuccessful Site: Left Femoral artery Sheath Size: 7 Fr Hemost... Success: Unsuccessful Procedure Details Findings Procedure Consent Obtained. Admit Source: In Patient. Pre-Procedure Time Out. Identified patient by full name and date of as verbalized by the patient/guarantor. Does the consent match the physician's order: Yes. Accurate & Complete Informed Consent: Yes. Inpatient/Outpatient History & Physical on Chart: Yes. If H&P is completed, is and addenduem needed: No; If yes, is the addendum complete: N/A. Visualize and Verify Site with Patient/Guarantor: N/A. Relevant Radiology Images available: Yes. The risks, benefits, and alternatives of sedation and/or procedure were discussed by physician. The patient agrees to continue. case postponed for stemi alert. Identified patient by full name and date of as verbalized by the patient/guarantor. Correct patient, site and procedure confirmed by cath team. Current diagnosis: suspected CAD. PERRLA. Strong, equal hand pet care attendant bilaterally. Lungs clear x 5 lobes. IV Site on Arrival: 20 gauge in the left forearm. IV Fluids: 0.9% NaCl at KVO. 50 mL infused prior to hemodialysis lab technician. Pre Procedural Pulses: bilateral dorsalis pedis was 2+. Pre Procedural Pulses: bilateral posterior tibial was 2+. Pre Procedural Pulses: bilateral radial was 3+. Oxygen started at 2liters/min via nasal canula. right groin was prepped with chloroprep then draped in the usual sterile fashion. left groin was prepped with chloroprep then draped in the usual sterile fashion. Physician notified. Baseline sample Acquired. HR: 80 BPM. Physician arrived. Physician scrubbed in. Time out performed with cath team. Lidocaine 1% infiltrated to the right groin. An attempt to gain access to the right femoral artery was unsuccessful. Manual pressure was held as needed to stop the bleeding. Arterial access obtained but wire not able to advance. wire and needle out. ultrasound requested by dr braun for assistance with access, manual pressure held to stop bleeding. Arterial access obtained with micropuncture set. A 5FrFr UF catheter in over wire. Abdominal aortogram performed in AP @ 10 mL/sec for a total of 30 mL. Pigtail postioned above the bifurcation of the iliacs. Aortagram performed @ 10 mL/sec for a total of 30 mL. Pigtail postioned above the bifurcation of the iliacs. Aortagram performed @ 10 mL/sec for a total of 20 mL. Catheter removed over the standard wire. Sheath injected in Right common femoral artery and runoff performed. Lidocaine 1% infiltrated to the left groin. Arterial access obtained with micropuncture set. Sheath upsized to a 7 Fr. balloon and wire out on right side. Glidewire inserted on right side. second Glidewire inserted on left side. Balloon inserted over the wire to the common iliac. Inflation number : 1 A AB ARMADA 35 OTW [id number] was prepped and advanced across the Common Iliac, Right , then inflated to 6 BRIAN for 0:30 seconds. Inflation number: 2 The AB ARMADA 35 OTW [id number] was reinflated across the Common Iliac, Right, to 6 BRIAN for 0:31 seconds. Balloon out. balloon out over wire on right and left side. A 5FrFr UF catheter in over glidewire on left side. glide wire out on left. Abdominal aortogram performed using DSA in AP @ 10 mL/sec for a total of 20 mL. Abdominal aortogram performed in AP @ 10 mL/sec for a total of 20 mL. wire out on right. Abdominal aortogram performed using DSA in AP @ 10 mL/sec for a total of 20 mL. Catheter out. Catheter removed over the glide wire on left side. Sheath(s) sutured into position with 2-0 silk and sterile 4x4's and Op-site applied over the site. No oozing or signs and symptoms of hematoma noted. Post Procedure: Pulses reassessed and unchanged. PERRLA. Strong, equal hand pet care attendant bilaterally. No VTE prophylaxis required. Medication's Wasted: Heparin = 4000 units. Medication's Wasted: Other = versed 1mg. Medication's Wasted: Other = fentanyl 25 mcg. Total IV fluids: 82 mL. Post-op diagnosis: bilateral illiac stensosis. Complications: none. Estimated blood loss: 5mL-10mL. Responsiveness - Normal response to verbal stimuli; alert and oriented, PERRLA. Airway - Unaffected, no intervention required; spontaneous ventilation. Circulation: W/N/L, pulses unchanged. Nausea/Vomiting: No. Procedure completed. Patient transferred by bed to 1st floor. Inflation Number : 3 A Bard Lifestream [id number] Vascular Covered Stent -Lot Number# [id number] was prepped and advanced across the Common Iliac, Right. The stent was deployed at 8 BRIAN for 1:00 seconds. Expiration: 05/17/2023. Inflation Number : 1 A Bard Lifestream [id number] Vascular Covered Stent -Lot Number# [id number] was prepped and advanced across the Common Iliac, Left. The stent was deployed at 8 BRIAN for 1:00 seconds. Expiration 05/17/2023. Procedure Medications Start: 10:29 AM Stop: 10:29 AM Medication: Versed Amount: 1 mg Start: 10:29 AM Stop: 10:29 AM Medication: Fentanyl Amount: 50 mcg Route: I.V. Start: 10:29 AM Stop: 10:29 AM Medication: Benadryl Amount: 25 mg Route: I.V. Start: 10:31 AM Stop: 10:31 AM Medication: Versed Amount: 1 mg Start: 10:43 AM Stop: 10:43 AM Medication: Versed 1 mg and Fentanyl 25 mcg Amount: 1 mg Route: I.V. Start: 10:54 AM Stop: 10:54 AM Medication: Versed Amount: 1 mg Route: I.V. Start: 11:07 AM Stop: 11:07 AM Medication: Versed Amount: 1 mg Route: I.V. Start: 11:15 AM Stop: 11:15 AM Medication: Heparin Amount: 6000 units Route: I.V. Start: 11:28 AM Stop: 11: AM Medication: Heparin Amount: 1000 units Route: I.V. Start: 11:33 AM Stop: 11:33 AM Medication: Aspirin Amount: 324 mg Route: P.O. Start: 11:33 AM Stop: 11: AM Medication: Plavix Amount: 600 mg Route: P.O. I, the attending physician, have reviewed and verified all procedure medications. Yes, all medications given per verbal order History/Risk Factors Hypertension: No Dyslipidemia: No Peripheral Arterial Disease (PAD): Yes Obesity: No Tobacco Use: Current/Recent(w/in 1 year) Prior Interventions PCI: No CABG: No Valve Surgery: No Report Signatures Finalized by Paul Braun MD on 01/16/2022 11:02 AM
[2022-01-02 07:41] LABS: Anion Gap 11.5 (5-19); Blood Urea Nitrogen 38 mg/dL (6-20); Calcium 8.2 mg/dL (8.5-10.5); Carbon Dioxide 23 mmol/L (22-29); Chloride 109 mmol/L (98-107); Glucose 81 mg/dL (65-115); Osmolality Calculated 296 mOsm/kg (285-295); Potassium 4.5 mmol/L (3.5-5.1); Sodium 139 mmol/L (136-145)
--- NOTE | 2022-01-02 08:46 | W.PM.OPSFHP ---
Same Day Surgery H&P Indication for Procedure/HPI DATE OF PROCEDURE: January 02, 2022 CHIEF COMPLAINT/INDICATIONFOR SURGICAL PROCEDURE: Severe lifestyle limiting claudication PREOP DIAGNOSIS: Severe lifestyle limiting claudication PLANNED PROCEDURE: Operation Date: 01/02/22 08:30 Proposed Procedures p Peripheral Diagnostic 16337,I73.9(Not Applicable) - Paul Braun M.D Possible percutaneous peripheral intervention 56-year-old man with past medical history of PAD and having severe bilateral lifestyle limiting claudication symptoms. ABIs are significantly reduced bilaterally. Plan for peripheral angiogram with possible intervention. ROS CONSTITUTIONAL: No fever chills weight loss or gain or night sweats. [] HEENT: Normocephalic, atraumatic.[] RESPIRATORY: No cough, sputum, hemoptysis or wheezing.[] CARDIOVASCULAR: No shortness of breath, chest pain, PND, orthopnea, lower extremity edema, presyncope or syncope. [] GI: no nausea vomiting diarrhea. [] SOCIAL MEDIA CAMPAIGN MANAGER: No numbness, tingling, weakness or loss of function in any part of the body. [] MUSCULOSKELETAL: No knee or joint pain or rashes. [] Medications/Allergies* Home Medications Medication Instructions Recorded Confirmed Type albuterol sulfate 90 mcg/actuation 2 puff inhalation Q6H PRN 12/21/20 01/02/22 History aerosol inhaler Shortness Of Breath cholecalciferol (vitamin D3) 25 25 mcg PO DAILY ##0 12/21/20 01/02/22 History mcg (1,000 unit) capsule (Vitamin D3) lisinopril 20 mg tablet 20 mg PO QAM 06/25/21 01/02/22 History azithromycin 500 mg tablet 500 mg PO QPM infec 12/18/21 01/02/22 History acetaminophen 500 mg tablet 1,000 mg PO Q6H PRN Pain 01/02/22 01/02/22 History cyanocobalamin (vitamin B-12) 1,000 mcg PO DAILY 01/02/22 01/02/22 History 1,000 mcg tablet (Vitamin B-12) metformin 500 mg tablet 500 - 1,000 mg PO DAILY PRN blood 01/02/22 01/02/22 History sugar prednisone 10 mg tablet See Rx Instructions .Route .COMPLEX 01/02/22 01/02/22 History ramelteon 8 mg tablet 8 mg PO BEDTIME 01/02/22 01/02/22 History temazepam 30 mg capsule 30 mg PO BEDTIME 01/02/22 01/02/22 History tocilizumab 162 mg/0.9 mL 162 mg SUBCUT Q7D 01/02/22 01/02/22 History subcutaneous syringe (Actemra) tramadol 50 mg tablet 50 mg PO TID PRN Pain 01/02/22 01/02/22 History Allergies/Adverse Reactions Allergy/AdvReac Type Severity Reaction Status Date / Time venom-wasp Allergy Severe ALGY-Hives Verified 01/02/22 08:38 Sulfa (Sulfonamide Allergy Intermediate itching Verified 01/02/22 08:38 Antibiotics) Current Medications: Generic Name Dose Route Start Last Admin Trade Name Freq PRN Reason Stop Dose Admin Sodium Chloride 1,000 mls @ 100 mls/hr 01/01/22 18:15 01/02/22 03:16 Sodium Chloride 0.9% IV 100 mls/hr .Q10H SAIDA Administration Pertinent History/Comorbid Conditions* Medical History (Updated 12/19/21 @ 12:28 by Quirino Gilliam MD) Abnormal chest xray Acid reflux Acute bacterial sinusitis Acute kidney injury Adrenal insufficiency CHF (congestive heart failure) Chronic use of steroids COPD (chronic obstructive pulmonary disease) Decreased GFR Dehydration Diverticulosis Elevated platelet count Fibromyalgia Gastritis and duodenitis Ground glass opacity present on imaging of lung Heart disease Hiatal hernia High risk medication use Immunization counseling Insomnia Lupus PCK (polycystic kidney disease) Polymyalgia rheumatica Positive ANASTASIA (antinuclear antibody) Rheumatoid arthritis Right forearm injury Sepsis Shortness of breath Type 2 diabetes mellitus Type 2 diabetes mellitus Surgical History (Updated 01/28/21 @ 10:26 by Landon Winters MD) History of colonoscopy with polypectomy 2011 Status post angioplasty with stent Dr Kay 2014 Status post cholecystectomy Status post hernia repair Family History (Updated 11/28/20 @ 15:01 by Jillian Bob RN) Diabetes Father CAD (coronary artery disease) Father Dementia Family/Other Suicide Sister Lung disease Father Family/Other Denies family history of Stroke Social History Smoking and tobacco status: current every day smoker cigarettes Packs smoked per day: 2 Years cigarettes smoked: 38 [ Other cigarette details: started at age 17] Second hand smoke exposure: No Smoking risk assessment/counseling performed?: Yes Alcohol intake: former Counseling given: No Counseling given: No Lives independently: Yes Household members: none Marital status: Current occupational status: disabled History of recent travel: No Current gender identity: Male Pertinent Exam Findings alert, oriented x 3, clear to auscultation bilaterally and regular rate & rhythm Conscious Sedation Assessment PATIENT ASSESSED PRIOR TO SEDATION, WITH NO CHANGE NOTED: Yes AIRWAY EVAL/ANESTHESIA PLAN: normal airway, see other exam findings, ASA III, Local Anesthesia, Risks, benefits & alternatives of sedation and/or procedure discussed and Patient agrees to continue as planned ADDITIONAL INFORMATION: Moderate sedation Recommendations Surgery/Procedure today (Peripheral angiogram with possible percutaneous peripheral intervention) Coding Level of Care Code Acute Neck Band Operator for David Wick
--- NOTE | 2022-01-02 08:51 | PC.PHAR ---
pt states he takes care of his own medications-pt states he is on a titrating dose of prednisone pt states not taking 10mg daily last filled 12/23/21 45d/s- pt states not started the prednisone filled on 01/01/22 5d/s for 20mg bid-pt states metoprolol succ er 25mg bid was dced ext med history shows last filled 12/16/21 90d/s-pt states the amitriptyline 25mg hs was also dced last filled 10/15/21 90d/s-
--- NOTE | 2022-01-02 09:11 | PC.NURSE ---
to cardiac cathode washer at 0900.
--- NOTE | 2022-01-02 09:21 | PC.NURSE ---
Pt in CPRU room 4 STEMI alert paged overhead from ED. Pt placed in CPRU room 4 for inpatient monitoring until ED patient procedure is complete. This patient procedure to follow emergent STEMI.
--- NOTE | 2022-01-02 12:16 | PC.NURSE ---
received into room 104 from cardiac cath lab nurse,via bed at 1145.report received.pt is alert and oriented x 4.denies pain at present.sr on monitor.right and left arterial sheaths intact to pressurized system.both drsgs are dry and intact.no hematoma formation noted.dopplerable pt/dp pulses bilat.instructed in activity restrictions s/p femoral artery procedures..and instructed to notify staff for any bleeding,pain,numbness,or for any concerns at all.pt verb understanding of instructions.
--- NOTE | 2022-01-02 12:47 | PC.CHAP ---
Pastoral Care Encounter/Spiritual Assessment Type of Contact [] Declined rn community visit [] Patient/Family/Request visit [] Outpatient visit [] Follow-up visit [] Physician referral [] Code/Alert [x] Routine visit [] Staff referral [] Actively dying [] Patient sleeping [] Family support [] [] Out of room [] Palliative care [] [x] Receiving care in room [] Pre-surgical visit [] Trauma [] Long length of stay [] ICU visit [] Other: Relational/Emotional Strength [x] Patient feels connected with others/family/visitors/staff [] Distress [] Loneliness/isolation [] Abandonment Spirituality of Patient [x] Person of Jayla [] Attends Scientologist of their Jayla [x] Believes in Prayer [] Reads Bible or Muslim materials [] There are Spiritual issues to be addressed Char Filter Operator Helper Interventions [x] Prayer [x] Active listening [x] Non-anxious presence [x] Spiritual/emotional support [] Crisis/trauma care [] Spiritual counseling [] Bereavement support [] Provided bereavement packet [] Provided Bible/devotional materials [] Provided toy/stuffed animal, coloring book to patient or family member [] Provided Communion [] Anointing/[place] [] Salvation [x] Completed spiritual assessment [] Other: Impact on Illness or Injury [] Angry [] Fearful [] Anxious [] Often cries [] Exhaustion [] Unable to work [] Unable to attend bahai [] Unable to walk/stand [] Unable to read [] Unable to drive [] Unable to eat/drink [] Unable to sleep [] Unable to be with family [] Patient intubated [] Other: Summary had stents in leg feels good has a good attitude +1 well go home Time spent with patient 10 mins
[2022-01-02 14:41] LABS: Partial Thromboplastin Time 55.4 SECONDS (23.9-36.7)
[2022-01-02] MEDS: gabapentin 300 mg Capsule 600 MG PO ×2 (15:20→20:00)
[2022-01-02] MEDS: fentaNYL 50 mcg/mL INJ 2mL IVP (15:53)
--- NOTE | 2022-01-02 18:50 | PC.NURSE ---
left arterial sheath pulled at 1610 and manual pressure applied x 20 min.vss through-out procedure.no hematoma formation noted.site dressed with 2x2 gauze and secured with opsite drsg.left leg remained warm to touch and with brisk capillary refill.palpable dp/pt pulses noted.right femoral arterial sheath at 1650.manual pressure held x 20 min.after pressure relieved...pt began bleeding...so pressure held again for 20 min.site dressed with 2x2 gauze and secured with biocclusive drsg.no hematoma formation noted.right leg remained warm to touch and with brisk capillary refill.palpable pulse noted in right foot..dp/pt.pt instructed in activity restrictions s/p femoral artery sheath removal...and instructed to notify staff for any bleeding,pain,numbness...or for any concerns at all.pt verb understanding of instructions
--- NOTE | 2022-01-02 19:15 | PC.NURSE ---
Initaial assessment of patients bilateral groin sites, left groin site drainage marked but site is soft and pulse is palpable. Right groin site had 3cm hard lump, pressure was applied at the time. After 5min of pressure the site is soft, dressing is dry and intact. Educated patient to alert nurse if he notices any bleeding or pain. Told patient that his bedrest is up at midnight and that the nurse will be in throughout the night to check his groin sites for any signs of complications.
--- NOTE | 2022-01-03 02:00 | PC.NURSE ---
left groin site remains intact but stained, no further drainage noted, site is soft. Right groin site is still soft, no hematoma noted, bruising is noted to surrounding skin. The patient states right groin site is still sore when palpated.
[2022-01-03 04:00] VITALS: BP 108/79; PULSE 68; RESP 16; TEMP 36.6; O2SAT 97
[2022-01-03 06:00] VITALS: PULSE 80
[2022-01-03 07:08] LABS: Anion Gap 13.8 (5-19); Blood Urea Nitrogen 30 mg/dL (6-20); Carbon Dioxide 21 mmol/L (22-29); Chloride 108 mmol/L (98-107); Glucose 75 mg/dL (65-115); Osmolality Calculated 291 mOsm/kg (285-295); Potassium 4.8 mmol/L (3.5-5.1); Sodium 138 mmol/L (136-145)
--- NOTE | 2022-01-03 07:44 | PM.DCS ---
Discharge Providers Date of Admission: 01/02/2022 Date of Discharge: January 03, 2022 Attending Provider at Admission: Paul Braun MD Attending Provider at Discharge: Paul Braun M.D Primary Care Provider: Jarred Hatch MD Reason for Visit Reason for Visit: Severe lifestyle limiting claudication Brief History: 56-year-old man with past medical history of PAD and having severe bilateral lifestyle limiting claudication symptoms.? ABIs are significantly reduced bilaterally.? Plan for peripheral angiogram with possible intervention. Patient was pre admitted the night before for hydation given CKD. Hospital Course Hospital Course Patient underwent peripheral angiogram. It showed severe bilateral common iliac stenosis. He underwent successful kissing stent placement in bilateral common iliac arteries with covered stents. Patient stayed in the hospital and was stable overnight. Hydration was continued. Creatinine stayed stable. Patient was discharged in a stable condition. Physical Exam Narrative: GENERAL: Patient is alert, awake and oriented x3. [] NECK: No jugular vein distension. [] HEENT: No cyanosis. No icterus. No pallor. [] HEART: Regular S1 and S2. No murmur, rub or gallop. [] LUNGS: Clear to auscultate bilaterally. [] ABDOMEN: Soft, nontender and nondistended. Positive bowel sounds. No guarding, rebound or tenderness. [] CENTRAL NERVOUS SYSTEM: Grossly nonfocal. [] EXTREMITIES: Lower extremities with 1+ edema bilaterally. Pulses palpable in the lower extremities, both dorsalis pedis and posterior tibial. [] Discharge Data Studies Completed and Pending Pending at discharge Category Date Time Status EXECUTIVE SOUS CHEF request for service Routine Exams 01/02/22 07:30 Ordered Laboratory Results APTT 55.4 SECONDS (23.9-36.7) H 01/02/22 14:06 Sodium 138 mmol/L (136-145) 01/03/22 06:35 Potassium 4.8 mmol/L (3.5-5.1) 01/03/22 06:35 Chloride 108 mmol/L (98-107) H 01/03/22 06:35 Carbon Dioxide 21 mmol/L (22-29) L 01/03/22 06:35 Anion Gap 13.8 (5-19) 01/03/22 06:35 BUN 30 mg/dL (6-20) H 01/03/22 06:35 Creatinine 1.9 mg/dL (0.7-1.2) H 01/03/22 06:35 GFR Calculation 37.0 mL/min (90-130) L 01/03/22 06:35 Glucose 75 mg/dL (65-115) 01/03/22 06:35 Calculated Osmolality 291 mOsm/kg (285-295) 01/03/22 06:35 Calcium 8.0 mg/dL (8.5-10.5) L 01/03/22 06:35 Vitals Last Vital Signs Temp 97.9 F 01/03/22 04:00 Pulse 80 01/03/22 06:00 Resp 16 01/03/22 04:00 BP 108/79 01/03/22 04:00 Pulse Ox 97 01/03/22 04:00 O2 Del Method 01/02/22 20:00 Discharge Plan Discharge Patient Disposition: Home Prescriptions: New aspirin 81 mg tablet,chewable 1 tab PO DAILY Qty: 90 2RF clopidogrel 75 mg tablet 75 mg PO DAILY Qty: 90 2RF Continued albuterol sulfate 1.25 mg/3 mL solution for nebulization 1.25 mg inhalation Q6H PRN (Reason: bronchospasm) 30 Days Qty: 90 1RF (DME) glucometer testing kit See Rx Instructions .Route .MEDSUPPLY Qty: 1 0RF Rx Instructions: glucometer testing kit, check BS TID lancets #100 strips# 100 hydrocortisone [Dermarest Eczema (hydrocort)] 1 % lotion 1 applic topical DAILY PRN (Reason: skin irritation) Qty: 120 0RF Rx Instructions: limit application to face (DME) test strips See Rx Instructions .Route .MEDSUPPLY Qty: 100 6RF Rx Instructions: check BS TID cilostazol 50 mg tablet 100 mg PO DAILY 90 Days Qty: 90 0RF citalopram 20 mg tablet 20 mg PO DAILY 90 Days Qty: 90 0RF hydroxyzine pamoate [Vistaril] 25 mg capsule 25 mg PO DAILY PRN (Reason: anxiety) 30 Days Qty: 30 0RF rifampin 300 mg capsule 600 mg PO QAM 30 Days Qty: 60 3RF ethambutol 400 mg tablet 1,000 mg PO QPM 90 Days Qty: 225 3RF azithromycin 500 mg tablet 500 mg PO QPM magnesium L-lactate [Magtab] 84 mg tablet extended release 84 mg PO DAILY 30 Days Qty: 30 0RF pantoprazole 40 mg tablet,delayed release (DR/EC) 40 mg PO DAILY Qty: 30 3RF gabapentin 600 mg tablet 600 mg PO TID Qty: 90 2RF prednisone 20 mg tablet 20 mg PO BID 5 Days Qty: 10 0RF Rx Instructions: rx filled 01/01/22 5d/s (pt states not started) cyclobenzaprine 5 mg tablet 5 mg PO TID PRN (Reason: muscle spasm) 30 Days Qty: 90 0RF nitroglycerin 0.4 mg tablet, sublingual 0.4 mg sublingual Q5M PRN (Reason: chest pain) 30 Days Qty: 30 0RF Rx Instructions: do not exceed 3 doses per episode atorvastatin 40 mg tablet 40 mg PO DAILY Qty: 100 3RF budesonide-formoterol [Symbicort] 160-4.5 mcg/actuation HFA aerosol inhaler 2 puff inhalation BID Qty: 10.2 5RF albuterol sulfate 90 mcg/actuation HFA aerosol inhaler 2 puff INHALATION Q6H PRN (Reason: Shortness Of Breath) cholecalciferol (vitamin D3) [Vitamin D3] 25 mcg (1,000 unit) Capsule 25 mcg PO DAILY Qty: 0 Vitamin B-12 1,000 mcg Tablet 1,000 mcg PO DAILY tramadol 50 mg tablet 50 mg PO TID PRN (Reason: Pain) acetaminophen 500 mg Tablet 1,000 mg PO Q6H PRN (Reason: Pain) temazepam 30 mg capsule 30 mg PO BEDTIME ramelteon 8 mg tablet 8 mg PO BEDTIME Actemra 162 mg/0.9 mL syringe 162 mg SUBCUT Q7D Rx Instructions: on sundays Held lisinopril 20 mg tablet 20 mg PO QAM Hold Instructions: Resume on 01/04/22. metformin 500 mg tablet 500 - 1,000 mg PO DAILY PRN (Reason: blood sugar) Hold Instructions: Resume on 01/04/22. No Action clopidogrel [Plavix] 75 mg tablet 75 mg PO DAILY Qty: 90 3RF prednisone 20 mg tablet See Rx Instructions .ROUTE .COMPLEX Qty: 90 1RF Dose Instruction: FOR JOINT PAIN FLARE: TAKE 2 TABLET BY MOUTH DAILY FOR ONE WEEK THEN TAKE 1 &1/2 TABLETS BY MOUTH EVERY DAY FOR ONE WEEK THEN TAKE 1 TABLET BY MOUTH EVERY DAY] Rx Instructions: FOR JOINT PAIN FLARE: TAKE 2 TABLET BY MOUTH DAILY FOR ONE WEEK THEN TAKE 1 &1/2 TABLETS BY MOUTH EVERY DAY FOR ONE WEEK THEN TAKE 1 TABLET BY MOUTH EVERY DAY] prednisone 10 mg tablet 20 mg PO DAILY Qty: 60 0RF Discharge Orders: Discharge Order (Routine); Ordered 01/03/22 Ordered By: Paul Braun Referrals: [facility] [employer] [Other] (This company may be able to assist you with getting in home services provided by a family member. ) Patient Instructions: Aspirin (By mouth), Clopidogrel (By mouth) (Plavix), Opioid Safety Discharge Date/Time: 01/03/22 10:16 Discharge Attestations Time Spent in Discharge Care*: less than 30 min Status at Discharge: Cognitive status at discharge: cognitively intact, Behavioral status at discharge: cooperative, Quality Metrics Clinical Quality Measures [ No reported AMI, CVA or VTE this stay] Coding Level of Care Code Acute Chg TIM DC note
[2022-01-03 07:45] VITALS: BP 133/90; PULSE 82; RESP 15; TEMP 36.9; O2SAT 97
[2022-01-03 08:00] VITALS: PULSE 100; RESP 18; O2SAT 96
[2022-01-03] MEDS: citalopram 20 mg Tablet PO (08:38)
[2022-01-03] MEDS: clopidogrel 75 mg Tablet PO (08:38)
[2022-01-03] MEDS: gabapentin 300 mg Capsule 600 MG PO (08:38)
[2022-01-03] MEDS: atorvastatin 40 mg Tablet PO (08:38)
[2022-01-03] MEDS: albuterol 2.5 mg/3 mL Neb INHALATION (08:43)
--- NOTE | 2022-01-03 08:49 | PC.NURSE ---
Discharge instructions given to patient, IV removed. Patient has no further questions. Waiting on ride.
== END 2022-01-03 10:16 | disposition home or self-care (01) ==
LOC: CSU 01-02 10:42 → OPCSU 01-02 12:46 → CSU 01-02 12:47
PROVIDERS: PCP Family Medicine; Visit Provider Internal Medicine
DX: I70.213 Atherosclerosis of native arteries of extremities with intermittent claudication, bilateral legs (principal); N18.9 Chronic kidney disease, unspecified; E11.22 Type 2 diabetes mellitus with diabetic chronic kidney disease; K21.9 Gastro-esophageal reflux disease without esophagitis; J44.9 Chronic obstructive pulmonary disease, unspecified; M79.7 Fibromyalgia; Z79.899 Other long term (current) drug therapy; F17.210 Nicotine dependence, cigarettes, uncomplicated
CPT/HCPCS: 36415; 37221; 37223; 75625; 75716; 80048; 85730; 94640; 96365; 99152; 99153; C1725; C1769; C1874; C1887; C1894; J1200; J1644; J2250; J3010; J7030; J7613; Q9967

== ENCOUNTER → 2022-01-06 08:57 | Outpatient (BNVA) | payer MEDICARE, MEDICAID, SELFPAY | PROVIDERS: PCP Family Medicine; Visit Provider Family Medicine | DX: N18.9 Chronic kidney disease, unspecified (principal) | CPT/HCPCS: 80048 ==

== ENCOUNTER → 2022-01-14 08:37 | Outpatient (BNVA) | payer MEDICARE, MEDICAID, SELFPAY | PROVIDERS: PCP Family Medicine; Visit Provider Nurse Practitioner Family | DX: I73.9 Peripheral vascular disease, unspecified (principal); F17.210 Nicotine dependence, cigarettes, uncomplicated | CPT/HCPCS: 99213 ==

== ENCOUNTER 2022-01-20 15:02 | Outpatient (CLI) | payer MEDICARE, MEDICAID, SELFPAY ==
--- NOTE | 2022-01-20 15:00 | CT_ITS ---
WS: [id number] EXAMINATION: CT chest wo con [id number] REASON FOR EXAM: follow up pulmonary MAC TOTAL EXAM DLP: 339.91 mGy.cm COMPARISON: 04/22/2021, 11/20/2020, 03/03/2016 Lungs and central airway: There is significant bilateral upper lobe areas of confluent opacifications with cavitation. Multiple cystic cavities are present interspersed with dense thick walled fibroglandular tissue. Overall there has been a slight improvement with decreased fluid within the loculation.. Continued coalescence of air spaces and unchanged size of the bulla and bleb formations. The owusu of some the cavitations are increasing in diameter secondary to the decreased fluid.. Very minimal groundglass attenuation an d interstitial thickening in the dependent RIGHT lower lobe. Pleura: Normal. No pleural effusion. Heart and pericardium: Normal size heart. There is a very small pericardial effusion anteriorly versus pericardial thickening. Mediastinum and kayode: No mediastinum or hilar adenopathy. Vessels: Mild atherosclerosis aorta. Normal size pulmonary artery. Moderate coronary artery calcifications. Chest wall and lower neck: Negative. Upper abdomen: Patient has known polycystic kidney disease. There are multiple cysts noted within the upper poles of each kidney. There are a few areas similar cysts within the liver which are similar to the prior study probably representing polycystic liver disease. No adrenal mass. Osseous structures: Healing rib fracture posterior lateral RIGHT lower thorax. Prior cholecystectomy. CT/CT chest wo con [id number] IMPRESSION: 1. Moderate improvement in the dense consolidations at the apices with increase in cavitation and cystic cavities as some of the fluid and thickening have dissipated. Recommend continued close follow-up to be sure there is no developing mass or nodule superimposed. 2. No adenopathy. 3. Polycystic renal and hepatic disease.
== END 2022-01-20 15:03 | disposition home or self-care (01) ==
PROVIDERS: PCP Family Medicine; Visit Provider Student in an Organized Health Care Education/Training Program
DX: A31.0 Pulmonary mycobacterial infection (principal); J44.9 Chronic obstructive pulmonary disease, unspecified; Q61.3 Polycystic kidney, unspecified; Q44.6 Cystic disease of liver
CPT/HCPCS: 71250

== ENCOUNTER → 2022-02-18 13:59 | Outpatient (BNVA) | payer MEDICARE, MEDICAID, SELFPAY | PROVIDERS: PCP Family Medicine; Visit Provider Anesthesiology Pain Medicine | DX: G89.29 Other chronic pain (principal); E11.9 Type 2 diabetes mellitus without complications; Z79.84 Long term (current) use of oral hypoglycemic drugs; M54.12 Radiculopathy, cervical region | CPT/HCPCS: 36416; 62321; 82962; J1100; J3490 ==

== ENCOUNTER → 2022-02-20 13:32 | Outpatient (BNVA) | payer MEDICARE, MEDICAID, SELFPAY | PROVIDERS: PCP Family Medicine; Visit Provider Student in an Organized Health Care Education/Training Program | DX: A31.0 Pulmonary mycobacterial infection (principal); K52.9 Noninfective gastroenteritis and colitis, unspecified | CPT/HCPCS: 99212; 99213 ==

== ENCOUNTER → 2022-03-25 13:15 | Outpatient (BNVA) | payer MEDICARE, MEDICAID, SELFPAY | PROVIDERS: PCP Family Medicine; Visit Provider Nurse Practitioner | DX: E86.0 Dehydration (principal) | CPT/HCPCS: 80053 ==

== ENCOUNTER 2022-03-26 12:11 | Outpatient (CLI) | payer MEDICARE, MEDICAID, SELFPAY ==
[2022-03-26 12:56] LABS: Basophils # 0.1 10^3/uL (0.0-0.1); Basophils % 0.9 %; Eosinophils # 0.3 10^3/uL (0.0-0.8); Eosinophils % 3.8 %; Hematocrit 42.8 % (42.0-52.0); Lymphocytes # 1.4 10^3/uL (0.8-4.8); Lymphocytes % 16.9 %; Mean Corpuscular HGB Conc 32.7 g/dL (30.0-36.0); Mean Corpuscular Hemoglobin 32.1 pg (28.0-34.0); Mean Corpuscular Volume 98.2 fl (80-94); Mean Platelet Volume 8.8 fL (7.4-10.4); Monocytes % 11.3 %; Neutrophils # 5.65 10^3/uL (1.8-7.7); Neutrophils % 66.5 %; Nucleated Red Blood Cells % 0 %; Platelet Count 257 10^3/cmm (130-400); Red Blood Count 4.36 10^6/uL (4.1-5.3); Red Cell Distribution Width 13.2 % (12.1-15.1); White Blood Count 8.5 10^3/uL (4.0-10.0)
[2022-03-26 13:18] LABS: Albumin Level 4.4 g/dL (3.5-5.2); Anion Gap 14.6 (5-19); Blood Urea Nitrogen 39 mg/dL (6-20); Calcium 9.2 mg/dL (8.5-10.5); Calcium 9.3 mg/dL (8.5-10.5); Carbon Dioxide 20 mmol/L (22-29); Chloride 106 mmol/L (98-107); Glucose 85 mg/dL (65-115); Phosphorus 3.9 mg/dL (2.5-4.5); Potassium 4.6 mmol/L (3.5-5.1); Sodium 136 mmol/L (136-145)
[2022-03-26 13:24] LABS: Parathyroid Hormone 68.6 pg/mL (15-65)
[2022-03-26 13:33] LABS: Creatinine Urine, Random 48 mg/dL (39-259); Microalbumin Random Urine 4 ug/dL (0-20)
[2022-03-26 13:35] LABS: Microalbum Creatinine Ratio Ur 83 mg/dL (0-20)
== END 2022-03-26 12:12 | disposition home or self-care (01) ==
LOC: LAB 12:18
PROVIDERS: PCP Family Medicine; Visit Provider Registered Nurse
DX: G89.29 Other chronic pain (principal); M54.12 Radiculopathy, cervical region; M54.16 Radiculopathy, lumbar region; M47.814 Spondylosis without myelopathy or radiculopathy, thoracic region; M47.812 Spondylosis without myelopathy or radiculopathy, cervical region; M50.90 Cervical disc disorder, unspecified, unspecified cervical region
CPT/HCPCS: 80069; 82044; 82310; 83970; 85025; 87015; 87116; 87206; 87801; 99214

== ENCOUNTER 2022-03-26 13:23 | Outpatient (CLI) | payer MEDICARE, MEDICAID, SELFPAY | END 2022-03-26 13:24 | disposition home or self-care (01) | PROVIDERS: PCP Family Medicine; Visit Provider Student in an Organized Health Care Education/Training Program | DX: J98.9 Respiratory disorder, unspecified (principal) ==

== ENCOUNTER 2022-04-01 11:49 | Outpatient (CLI) | payer MEDICARE, MEDICAID, SELFPAY ==
[2022-04-01 13:17] LABS: Add Urine Microscopic? NO
[2022-04-01 13:57] LABS: Bilirubin Urine Neg (Negative); Blood Urine Neg (Negative); Glucose Urine UA Norm (Normal); Ketones Urine Negative (Negative); Leukocyte Esterase Urine Negative (Negative); Nitrate Urine Negative (Negative); Protein Urine Neg (Negative); RBC Urine 0-4 /hpf (0-2); Urine Appearance Clear (CLEAR); Urine Color Yellow (Yellow); Urobilinogen Urine Norm (Negative); WBC Urine 0-4 /hpf (0-5); pH Urine 5 (5-7)
[2022-04-01 13:58] LABS: Add Urine Culture? No; Bacteria Urine TRACE /hpf
== END 2022-04-01 11:50 | disposition home or self-care (01) ==
PROVIDERS: PCP Family Medicine; Visit Provider Registered Nurse
DX: Q61.3 Polycystic kidney, unspecified (principal); I25.118 Atherosclerotic heart disease of native coronary artery with other forms of angina pectoris; I73.9 Peripheral vascular disease, unspecified; I12.9 Hypertensive chronic kidney disease with stage 1 through stage 4 chronic kidney disease, or unspecified chronic kidney disease; N18.9 Chronic kidney disease, unspecified; E78.5 Hyperlipidemia, unspecified; I95.1 Orthostatic hypotension; F17.210 Nicotine dependence, cigarettes, uncomplicated
CPT/HCPCS: 81001; 99214

== ENCOUNTER → 2022-04-07 13:40 | Outpatient (BNVA) | payer MEDICARE, MEDICAID, SELFPAY | PROVIDERS: PCP Family Medicine; Visit Provider Internal Medicine Rheumatology | DX: M35.3 Polymyalgia rheumatica (principal); Z79.899 Other long term (current) drug therapy; M06.9 Rheumatoid arthritis, unspecified; R76.8 Other specified abnormal immunological findings in serum; Z71.85 Encounter for immunization safety counseling; A31.0 Pulmonary mycobacterial infection; Z79.52 Long term (current) use of systemic steroids | CPT/HCPCS: 99214 ==

== ENCOUNTER → 2022-04-08 07:36 | Outpatient (BNVA) | payer MEDICARE, MEDICAID, SELFPAY | PROVIDERS: PCP Family Medicine; Visit Provider Podiatrist Foot & Ankle Surgery | DX: E11.9 Type 2 diabetes mellitus without complications (principal); I73.9 Peripheral vascular disease, unspecified; L60.0 Ingrowing nail; G62.9 Polyneuropathy, unspecified; B35.1 Tinea unguium; Z79.84 Long term (current) use of oral hypoglycemic drugs | CPT/HCPCS: 11721; 99204 ==

== ENCOUNTER → 2022-04-15 11:20 | Outpatient (BNVA) | payer MEDICARE, MEDICAID, SELFPAY | PROVIDERS: PCP Family Medicine; Visit Provider Family Medicine | DX: N17.9 Acute kidney failure, unspecified (principal) | CPT/HCPCS: 80048 ==

== ENCOUNTER → 2022-04-30 15:07 | Outpatient (BNVA) | payer MEDICARE, MEDICAID, SELFPAY | PROVIDERS: PCP Family Medicine; Visit Provider Family Medicine | DX: N18.9 Chronic kidney disease, unspecified (principal); N17.9 Acute kidney failure, unspecified | CPT/HCPCS: 80048 ==

== ENCOUNTER 2022-05-05 10:15 | Oncology outpatient (recurring) (ONCR) | payer MEDICARE, MEDICAID, SELFPAY ==
[2022-04-21] MEDS: sodium chloride 0.9% 1,000 ML 999 ML IV (13:00)
[2022-04-21 14:04] LABS: Blood Urea Nitrogen 34 mg/dL (6-20); Calcium 8.9 mg/dL (8.5-10.5); Carbon Dioxide 22 mmol/L (22-29); Chloride 104 mmol/L (98-107); Glomerular Filtration Rate 34.9 mL/min (90-130); Glucose 72 mg/dL (65-115); Osmolality Calculated 290 mOsm/kg (285-295); Sodium 137 mmol/L (136-145)
[2022-04-21 14:07] LABS: Anion Gap 16.1 (5-19); Potassium 5.1 mmol/L (3.5-5.1)
[2022-04-28] MEDS: sodium chloride 0.9% 1,000 ML 999 ML IV (10:31)
[2022-04-28 12:11] LABS: Anion Gap 14.3 (5-19); Blood Urea Nitrogen 31 mg/dL (6-20); Calcium 8.8 mg/dL (8.5-10.5); Carbon Dioxide 23 mmol/L (22-29); Chloride 109 mmol/L (98-107); Glomerular Filtration Rate 34.9 mL/min (90-130); Glucose 75 mg/dL (65-115); Osmolality Calculated 297 mOsm/kg (285-295); Potassium 5.3 mmol/L (3.5-5.1); Sodium 141 mmol/L (136-145)
[2022-05-05 10:30] VITALS: BP 122/87; PULSE 87; RESP 16; TEMP 37; O2SAT 98
[2022-05-05] MEDS: sodium chloride 0.9% 1,000 ML 999 ML IV (10:40)
[2022-05-05 11:54] LABS: Blood Urea Nitrogen 31 mg/dL (6-20); Calcium 8.8 mg/dL (8.5-10.5); Carbon Dioxide 19 mmol/L (22-29); Chloride 108 mmol/L (98-107); Glomerular Filtration Rate 34.9 mL/min (90-130); Glucose 87 mg/dL (65-115); Osmolality Calculated 286 mOsm/kg (285-295); Sodium 135 mmol/L (136-145)
[2022-05-05 11:55] VITALS: BP 144/77; PULSE 87; RESP 16; TEMP 36.3; O2SAT 97
[2022-05-05 11:56] LABS: Anion Gap 12.9 (5-19); Potassium 4.9 mmol/L (3.5-5.1)
== END 2022-05-16 23:59 | disposition home or self-care (01) ==
PROVIDERS: PCP Family Medicine; Visit Provider Family Medicine
DX: N17.9 Acute kidney failure, unspecified (principal); Z79.899 Other long term (current) drug therapy
CPT/HCPCS: 80048; 96365; J7030

== ENCOUNTER 2022-06-04 10:21 | Outpatient (CLI) | payer MEDICARE, MEDICAID, SELFPAY ==
--- NOTE | 2022-06-04 10:34 | CT_ITS ---
WS: [id number] CT ABDOMEN AND PELVIS NONCONTRAST HISTORY: POLYCYSTIC KIDNEY DISEASE, FLANK PAIN TECHNIQUE: Imaging performed through the abdomen and pelvis. Coronal and sagittal reformats are submi tted. All CT scans at [facility] use at least one of these dose optimization techniques: auto mated exposure control; mA and/or kV adjustment per patient size (includes targeted exams where dose is matched to clinical indication); or iterative reconstruction. DLP: 409.83 mGy.cm COMPARISON: 05/22/2021 Lower thorax: Hyperexpanded lung bases with central lobular emphysema. Normal size heart. Mild anteri or pericardial thickening is unchanged. Small hiatal hernia. Liver: Liver is slightly enlarged. There are multiple scattered low-attenuation masses within the mejia er. Consistent with cysts. These are too small to characterize. No bile duct dilatation. Gallbladder: Prior cholecystectomy. Pancreas: Normal size and attenuation. Normal pancreatic duct. No pancreatitis or mass. Spleen: Normal. Adrenal glands: Normal. No mass. Right kidney: Enlarged RIGHT kidney measures 22 cm in length. Innumerable predominantly cystic masses throughout the kidney with obliteration of the normal cortical medullary junction. There are a few s cattered mass is of increased density which are probably hemorrhagic cysts. No obstruction. Left kidney: Enlarged LEFT kidney with numerous hepatic cysts. Some of these contain increased densit y. Kidney measures 18 cm in length. No hydronephrosis. Aorta: Mild atherosclerosis abdominal aorta with no aneurysm. No free fluid, intraperitoneal air or significant lymphadenopathy. GI tract: Normal noncontrast imaging of the stomach, small bowel and colon. No obstruction or wall th ickening. Normal appendix. Numerous diverticula in the distal colon without acute diverticulitis. Tor tuous overlapping loops of colon. Abdominal wall: Negative. No hernia. Pelvis: Mildly distended bladder. No free fluid or wall thickening. Osseous structures: L2 anterolisthesis by 3 mm. Advanced degenerative disc disease at L2-3. CT/CT kidney stone [id number] IMPRESSION: 1. Known polycystic kidney disease. Markedly enlarged kidneys with innumerable cysts. Some of these cysts are of increased density most consistent with hemor rhage. 2. Numerous hepatic cysts of various sizes. 3. Prior cholecystectomy. 4. Normal appendix. 5. Moderate sigmoid diverticulosis without acute diverticulitis.
== END 2022-06-04 10:22 | disposition home or self-care (01) ==
LOC: RAD 10:24
PROVIDERS: PCP Family Medicine; Visit Provider Registered Nurse
DX: Q61.3 Polycystic kidney, unspecified (principal); R10.9 Unspecified abdominal pain; Z90.49 Acquired absence of other specified parts of digestive tract; K57.30 Diverticulosis of large intestine without perforation or abscess without bleeding
CPT/HCPCS: 74176

== ENCOUNTER 2022-06-09 09:45 | Oncology outpatient (recurring) (ONCR) | payer MEDICARE, MEDICAID, SELFPAY ==
[2022-05-19 10:06] VITALS: BP 118/72; PULSE 92; RESP 18; TEMP 36.9; O2SAT 97
[2022-05-19] MEDS: sodium chloride 0.9% 1,000 ML 999 ML IV (10:13)
[2022-05-19 10:52] LABS: Anion Gap 12.1 (5-19); Blood Urea Nitrogen 31 mg/dL (6-20); Calcium 8.8 mg/dL (8.5-10.5); Carbon Dioxide 22 mmol/L (22-29); Chloride 99 mmol/L (98-107); Glomerular Filtration Rate 34.9 mL/min (90-130); Glucose 96 mg/dL (65-115); Osmolality Calculated 272 mOsm/kg (285-295); Potassium 5.1 mmol/L (3.5-5.1); Sodium 128 mmol/L (136-145)
[2022-05-26 10:21] VITALS: BP 130/85; PULSE 85; RESP 16; TEMP 36.9; O2SAT 97
[2022-05-26] MEDS: sodium chloride 0.9% 1,000 ML 999 ML IV (10:23)
[2022-05-26 10:28] VITALS: BMI 23.9
[2022-05-26 11:15] LABS: Blood Urea Nitrogen 28 mg/dL (6-20); Calcium 8.9 mg/dL (8.5-10.5); Carbon Dioxide 22 mmol/L (22-29); Chloride 102 mmol/L (98-107); Glomerular Filtration Rate 29.7 mL/min (90-130); Glucose 101 mg/dL (65-115); Osmolality Calculated 284 mOsm/kg (285-295); Sodium 134 mmol/L (136-145)
[2022-05-26 11:55] VITALS: BP 113/75; PULSE 88; RESP 18; TEMP 36.7; O2SAT 100
[2022-06-02] MEDS: sodium chloride 0.9% 1,000 ML 999 ML IV (13:11)
[2022-06-02 13:42] LABS: Blood Urea Nitrogen 33 mg/dL (6-20); Calcium 8.8 mg/dL (8.5-10.5); Carbon Dioxide 22 mmol/L (22-29); Chloride 103 mmol/L (98-107); Glomerular Filtration Rate 34.9 mL/min (90-130); Glucose 139 mg/dL (65-115); Osmolality Calculated 286 mOsm/kg (285-295); Sodium 133 mmol/L (136-145)
[2022-06-02 13:46] LABS: Creatinine Clr Calc Pharmacy 46.3661
[2022-06-02 13:47] LABS: Anion Gap 12.4 (5-19); Potassium 4.4 mmol/L (3.5-5.1)
[2022-06-02 14:36] VITALS: BP 124/76; PULSE 81; TEMP 37.1; O2SAT 93
[2022-06-09 09:45] VITALS: BP 108/72; PULSE 85; RESP 16; TEMP 37.3; O2SAT 96
[2022-06-09] MEDS: sodium chloride 0.9% 1,000 ML 999 ML IV (10:00)
[2022-06-09 11:55] VITALS: BP 120/75; PULSE 78; RESP 16; TEMP 36.4; O2SAT 94
[2022-06-09 12:23] LABS: Blood Urea Nitrogen 31 mg/dL (6-20); Carbon Dioxide 22 mmol/L (22-29); Chloride 98 mmol/L (98-107); Glomerular Filtration Rate 34.9 mL/min (90-130); Glucose 57 mg/dL (65-115); Osmolality Calculated 274 mOsm/kg (285-295); Sodium 130 mmol/L (136-145)
[2022-06-09 12:24] LABS: Creatinine Clr Calc Pharmacy 46.3661
[2022-06-09 12:25] LABS: Anion Gap 14.5 (5-19); Potassium 4.5 mmol/L (3.5-5.1)
== END 2022-06-15 23:59 | disposition home or self-care (01) ==
PROVIDERS: PCP Family Medicine; Visit Provider Family Medicine
DX: N17.9 Acute kidney failure, unspecified (principal)
CPT/HCPCS: 80048; 96360; J7030

== ENCOUNTER → 2022-07-01 08:03 | Outpatient (BNVA) | payer MEDICARE, MEDICAID, SELFPAY | PROVIDERS: PCP Family Medicine; Visit Provider Podiatrist Foot & Ankle Surgery | DX: I73.9 Peripheral vascular disease, unspecified (principal); E11.8 Type 2 diabetes mellitus with unspecified complications; E11.42 Type 2 diabetes mellitus with diabetic polyneuropathy; G62.9 Polyneuropathy, unspecified; B35.1 Tinea unguium; Z79.84 Long term (current) use of oral hypoglycemic drugs | CPT/HCPCS: 11721 ==

== ENCOUNTER → 2022-07-02 14:39 | Outpatient (BNVA) | payer MEDICARE, MEDICAID, SELFPAY | PROVIDERS: PCP Family Medicine; Visit Provider Internal Medicine Rheumatology | DX: M35.3 Polymyalgia rheumatica (principal); R76.8 Other specified abnormal immunological findings in serum; M06.9 Rheumatoid arthritis, unspecified; Z71.85 Encounter for immunization safety counseling; Z79.899 Other long term (current) drug therapy; A31.0 Pulmonary mycobacterial infection | CPT/HCPCS: 99214 ==

== ENCOUNTER 2022-07-15 10:15 | Oncology outpatient (recurring) (ONCR) | payer MEDICARE, MEDICAID, SELFPAY ==
[2022-06-20 09:10] VITALS: BP 112/74; PULSE 80; RESP 16; TEMP 36; O2SAT 96
[2022-06-20] MEDS: sodium chloride 0.9% 1,000 ML 999 ML IV (09:28)
[2022-06-20 09:49] LABS: Anion Gap 16.4 (5-19); Blood Urea Nitrogen 28 mg/dL (6-20); Calcium 9.1 mg/dL (8.5-10.5); Carbon Dioxide 21 mmol/L (22-29); Chloride 104 mmol/L (98-107); Glucose 84 mg/dL (65-115); Osmolality Calculated 287 mOsm/kg (285-295); Potassium 5.4 mmol/L (3.5-5.1); Sodium 136 mmol/L (136-145)
[2022-06-20 10:46] VITALS: BP 119/71; PULSE 88; RESP 18; TEMP 36.6; O2SAT 99
[2022-06-23] MEDS: sodium chloride 0.9% 1,000 ML 999 ML IV (10:20)
[2022-06-23 10:48] LABS: Anion Gap 16.2 (5-19); Blood Urea Nitrogen 28 mg/dL (6-20); Calcium 8.6 mg/dL (8.5-10.5); Carbon Dioxide 20 mmol/L (22-29); Chloride 102 mmol/L (98-107); Glomerular Filtration Rate 42.1 mL/min (90-130); Glucose 90 mg/dL (65-115); Osmolality Calculated 281 mOsm/kg (285-295); Potassium 5.2 mmol/L (3.5-5.1); Sodium 133 mmol/L (136-145)
[2022-06-23 11:42] VITALS: BP 142/86; PULSE 82; TEMP 37.2; O2SAT 98
[2022-06-30 10:30] VITALS: BP 127/90; PULSE 105; RESP 18; TEMP 36.8; O2SAT 96
[2022-06-30] MEDS: sodium chloride 0.9% 1,000 ML 150 ML IV (11:10)
[2022-06-30 12:58] LABS: Anion Gap 15.5 (5-19); Blood Urea Nitrogen 30 mg/dL (6-20); Calcium 8.7 mg/dL (8.5-10.5); Carbon Dioxide 20 mmol/L (22-29); Chloride 104 mmol/L (98-107); Glomerular Filtration Rate 39.4 mL/min (90-130); Glucose 112 mg/dL (65-115); Osmolality Calculated 287 mOsm/kg (285-295); Potassium 4.5 mmol/L (3.5-5.1); Sodium 135 mmol/L (136-145)
[2022-06-30 17:01] VITALS: BP 148/79; PULSE 92; RESP 18; TEMP 36.3; O2SAT 98
[2022-07-07] MEDS: sodium chloride 0.9% 1,000 ML 999 ML IV (10:33)
[2022-07-07 10:57] LABS: Anion Gap 16.9 (5-19); Blood Urea Nitrogen 36 mg/dL (6-20); Calcium 8.5 mg/dL (8.5-10.5); Carbon Dioxide 21 mmol/L (22-29); Chloride 106 mmol/L (98-107); Glomerular Filtration Rate 42.1 mL/min (90-130); Glucose 102 mg/dL (65-115); Osmolality Calculated 297 mOsm/kg (285-295); Potassium 4.9 mmol/L (3.5-5.1); Sodium 139 mmol/L (136-145)
[2022-07-15] MEDS: sodium chloride 0.9% 1,000 ML 999 ML IV (11:00)
[2022-07-15 11:24] LABS: Basophils # 0.1 10^3/uL (0.0-0.1); Basophils % 0.6 %; Eosinophils # 0.4 10^3/uL (0.0-0.8); Eosinophils % 3.8 %; Hemoglobin 14.8 g/dL (11.7-16.6); Lymphocytes # 1.2 10^3/uL (0.8-4.8); Lymphocytes % 10.7 %; Mean Corpuscular HGB Conc 33.6 g/dL (30.0-36.0); Mean Corpuscular Hemoglobin 31.6 pg (28.0-34.0); Mean Corpuscular Volume 93.8 fl (80-94); Mean Platelet Volume 8.9 fL (7.4-10.4); Monocytes # 0.7 10^3/uL (0.2-0.9); Monocytes % 6.3 %; Neutrophils # 8.39 10^3/uL (1.8-7.7); Nucleated Red Blood Cells % 0 %; Platelet Count 332 10^3/cmm (130-400); Red Blood Count 4.69 10^6/uL (4.1-5.3); Red Cell Distribution Width 13.2 % (12.1-15.1); White Blood Count 10.8 10^3/uL (4.0-10.0)
[2022-07-15 11:47] LABS: Alanine Aminotransferase 13 U/L (0-41); Albumin Level 4.1 g/dL (3.5-5.2); Alkaline Phosphatase 71 U/L (40-130); Aspartate Amino Transferase 17 U/L (0-40); C Reactive Protein 7.7 mg/L (0.0-4.9); Globulin 2.5 g/dL (1.3-4.6); Total Bilirubin 0.2 mg/dL (0.15-1.2); Total Protein 6.6 g/dL (6.6-8.7)
[2022-07-15 12:20] VITALS: BP 132/86; PULSE 81; RESP 17; TEMP 36.7; O2SAT 99
[2022-07-15 17:04] LABS: Prolactin 9.41 ng/mL (4.0-15.2)
[2022-07-15 17:06] LABS: Alanine Aminotransferase 11 U/L (0-41); Albumin Level 3.6 g/dL (3.5-5.2); Alkaline Phosphatase 62 U/L (40-130); Anion Gap 12.8 (5-19); Aspartate Amino Transferase 15 U/L (0-40); Blood Urea Nitrogen 43 mg/dL (6-20); Calcium 8.2 mg/dL (8.5-10.5); Carbon Dioxide 20 mmol/L (22-29); Chloride 109 mmol/L (98-107); Globulin 2.2 g/dL (1.3-4.6); Glomerular Filtration Rate 31.2 mL/min (90-130); Glucose 107 mg/dL (65-115); Osmolality Calculated 295 mOsm/kg (285-295); Potassium 4.8 mmol/L (3.5-5.1); Sodium 137 mmol/L (136-145); Thyroid Stimulating Hormone 0.75 uIU/mL (0.27-4.20); Total Bilirubin 0.2 mg/dL (0.15-1.2); Total Protein 5.8 g/dL (6.6-8.7)
== END 2022-07-16 23:59 | disposition home or self-care (01) ==
PROVIDERS: Internal Medicine Rheumatology; Student in an Organized Health Care Education/Training Program; PCP Family Medicine; Visit Provider Family Medicine
DX: N17.9 Acute kidney failure, unspecified (principal); Z79.899 Other long term (current) drug therapy; M06.9 Rheumatoid arthritis, unspecified; A31.0 Pulmonary mycobacterial infection; M79.7 Fibromyalgia; K52.9 Noninfective gastroenteritis and colitis, unspecified
CPT/HCPCS: 36415; 80048; 80053; 80076; 82533; 82565; 84146; 84443; 85025; 86140; 87015; 87116; 87206; 87801; 96360; 96361; 99214; J7030

== ENCOUNTER 2022-08-06 14:00 | Oncology outpatient (recurring) (ONCR) | payer MEDICARE, MEDICAID, SELFPAY ==
[2022-07-23 13:25] VITALS: BP 110/71; PULSE 92; RESP 16; TEMP 36.9; O2SAT 96
[2022-07-23] MEDS: sodium chloride 0.9% 1,000 ML 999 ML IV (13:34)
[2022-07-23 14:45] VITALS: BP 107/74; PULSE 79; RESP 16; TEMP 36.2; O2SAT 97
[2022-07-30 14:45] VITALS: BP 124/76; PULSE 103; RESP 16; TEMP 36.9; O2SAT 96
[2022-07-30] MEDS: sodium chloride 0.9% 1,000 ML 999 ML IV (14:57)
[2022-07-30 15:59] VITALS: BP 113/72; PULSE 76; RESP 16; TEMP 37.1; O2SAT 97
[2022-07-30 16:05] VITALS: BP 113/72; PULSE 76; RESP 16; TEMP 37.1; O2SAT 97
[2022-08-06 14:00] VITALS: BP 108/72; PULSE 102; RESP 18; TEMP 37.2; O2SAT 97
[2022-08-06] MEDS: sodium chloride 0.9% 1,000 ML 999 ML IV (14:20)
[2022-08-06 15:30] VITALS: BP 129/74; PULSE 91; RESP 18; TEMP 36.8; O2SAT 97
== END 2022-08-15 23:59 | disposition home or self-care (01) ==
PROVIDERS: PCP Family Medicine; Visit Provider Family Medicine
DX: E86.0 Dehydration (principal); N18.9 Chronic kidney disease, unspecified
CPT/HCPCS: 96360; J7030

== ENCOUNTER → 2022-08-06 14:58 | Outpatient (BNVA) | payer MEDICARE, MEDICAID, SELFPAY | PROVIDERS: PCP Family Medicine; Visit Provider Student in an Organized Health Care Education/Training Program | DX: A31.0 Pulmonary mycobacterial infection (principal); Z79.899 Other long term (current) drug therapy; K52.9 Noninfective gastroenteritis and colitis, unspecified ==

== ENCOUNTER 2022-08-12 12:57 | Outpatient (CLI) | payer MEDICARE, MEDICAID, SELFPAY ==
--- NOTE | 2022-08-12 13:00 | CTR_ITS ---
PROCEDURE INFORMATION: Exam: CT Chest Without Contrast; Diagnostic Exam date and time: 08/12/2022 1:02 PM Age: 56 years old Clinical indication: Condition or disease; Lung condition and disease; Patient HX: Follow up pulmonary mac.No history of trauma or recent surgery is provided. TECHNIQUE: Imaging protocol: Diagnostic computed tomography of the chest without contrast. 269image(s) are provided. Radiation optimization: All CT scans at this facility use at least one of these dose optimization techniques: automated exposure control; mA and/or kV adjustment per patient size (includes targeted exams where dose is matched to clinical indication); or iterative reconstruction. Other technique: Axial images are available with sagittal and coronal reconstruction views. Automated dose exposure control is utilized. The DLP is 278.69. REPORTING DATA: Count of CT and Cardiac NM exams in prior 12 months: This patient has received 2 known CTs and 0 known cardiac nuclear medicine studies in the 12 months prior to the current study. COMPARISON: CT chest wo con [id number] 01/20/2022 3:[address] abdomen report of 06/04/2022. RADIATION DOSE METRICS: Total DLP (mGy-cm): 278.69 FINDINGS: Trachea: The central airways are grossly patent. There is some associated bronchiolectasis with the scarring. Lungs: There is some chronic air trapping along with centrilobular emphysematous appearance and bullous related change. There are some parenchymal blebs also present. No lobar consolidation is appreciated. There is apical fibronodular and fibro cavitary related change with a similar appearance and distribution overall. This is most pronounced on the left with some lobulated and thick-walled cavitary appearance measuring approximately 7.8 x 6 cm in greatest overall dimensions relatively similar overall along with some lobulated thick-walled appearance. No internal fluid level is currently appreciated. There is some decreased internal septation within the largest component. Pleural spaces: No pneumothorax or pleural effusion is appreciated. Heart: There is some trace pericardial and recess fluid likely physiologic similar overall. Coronary arteries: There are coronary arterial calcifications present. Lymph nodes: There are subcentimeter predominant mediastinal and hilar lymph nodes overall present. Vasculature: No interval aortic aneurysmal dilatation is appreciated. Gallbladder and bile ducts: Cholecystectomy clips are present. Intraperitoneal space: There is a similar interval appearance of the included intraperitoneal space, upper abdominal structures including hepatorenal multi-cystic changes. Bones/joints: Osseous alignment is maintained.No interval displaced fracture or dislocation is appreciated. There are some chronic appearing rib deformity similar for example posterolaterally on the right. Soft tissues: No radiopaque foreign body or subcutaneous emphysema is appreciated. Other findings: There is some motion artifact present. No other significant interval changes are appreciated. CT/CT chest wo con [id number] IMPRESSION: There is a similar overall appearance of the pulmonary parenchyma with chronic air trapping and fibrocavitary related changes most pronounced at the left apex. The overall size at this site appears similar with some internal improved aeration and decreased septation. Currently no layering fluid is appreciated. COMMENTS: In the absence of a history or active diagnosis of lung cancer, it is recommended that this patient with emphysema be evaluated for enrollment in a low dose CT lung cancer screening program.
== END 2022-08-12 12:58 | disposition home or self-care (01) ==
LOC: RAD 12:57
PROVIDERS: PCP Family Medicine; Visit Provider Student in an Organized Health Care Education/Training Program
DX: J44.9 Chronic obstructive pulmonary disease, unspecified (principal)
CPT/HCPCS: 71250; 99214

== ENCOUNTER 2022-09-04 20:00 | Outpatient (CLI) | payer MEDICARE, MEDICAID, SELFPAY | END 2022-09-04 20:01 | disposition home or self-care (01) | LOC: SLEEP 09-05 05:37 | PROVIDERS: PCP Family Medicine; Visit Provider Specialist | DX: G47.33 Obstructive sleep apnea (adult) (pediatric) (principal); R51.9 Headache, unspecified; J30.89 Other allergic rhinitis; J32.8 Other chronic sinusitis | CPT/HCPCS: 95810; 99215 ==

== ENCOUNTER 2022-09-08 15:00 | Oncology outpatient (recurring) (ONCR) | payer MEDICARE, MEDICAID, SELFPAY ==
[2022-08-18 14:03] VITALS: BP 99/67; PULSE 100; RESP 18; TEMP 37.2; O2SAT 96
[2022-08-18] MEDS: sodium chloride 0.9% 1,000 ML 999 ML IV (14:09)
[2022-08-18 15:12] VITALS: BP 100/69; PULSE 90; RESP 18; TEMP 36.9; O2SAT 96
[2022-08-25 15:17] VITALS: BP 142/84; PULSE 98; RESP 18; TEMP 37.6; O2SAT 95
[2022-08-25] MEDS: sodium chloride 0.9% 1,000 ML 999 ML IV (15:25)
[2022-08-25 16:25] VITALS: BP 111/60; PULSE 90; RESP 18; TEMP 37.1; O2SAT 96
[2022-09-01 15:11] VITALS: BP 132/78; PULSE 92; RESP 18; TEMP 37.2; O2SAT 96
[2022-09-01] MEDS: sodium chloride 0.9% 1,000 ML 999 ML IV (15:17)
[2022-09-01 16:30] VITALS: BP 131/79; PULSE 90; TEMP 36.9; O2SAT 97
[2022-09-08] MEDS: sodium chloride 0.9% 1,000 ML 999 ML IV (15:20)
[2022-09-08 16:35] VITALS: BP 127/72; PULSE 87; RESP 16; TEMP 36.6; O2SAT 97
== END 2022-09-15 23:59 | disposition home or self-care (01) ==
PROVIDERS: PCP Family Medicine; Visit Provider Family Medicine
DX: E86.0 Dehydration (principal); N18.9 Chronic kidney disease, unspecified; Z79.899 Other long term (current) drug therapy
CPT/HCPCS: 96360; J7030

== ENCOUNTER → 2022-09-19 09:58 | Outpatient (BNVA) | payer MEDICARE, MEDICAID, SELFPAY | PROVIDERS: PCP Family Medicine; Visit Provider Podiatrist Foot & Ankle Surgery | DX: E11.8 Type 2 diabetes mellitus with unspecified complications (principal); I73.9 Peripheral vascular disease, unspecified; G62.9 Polyneuropathy, unspecified; B35.1 Tinea unguium; E11.42 Type 2 diabetes mellitus with diabetic polyneuropathy; Z79.84 Long term (current) use of oral hypoglycemic drugs | CPT/HCPCS: 11721 ==

== ENCOUNTER 2022-09-29 10:31 | Outpatient (CLI) | payer MEDICARE, MEDICAID, SELFPAY ==
[2022-09-29 11:31] LABS: Basophils # 0.1 10^3/uL (0.0-0.1); Basophils % 0.6 %; Eosinophils # 0.5 10^3/uL (0.0-0.8); Eosinophils % 3.3 %; Hematocrit 37.9 % (42.0-52.0); Hemoglobin 12.6 g/dL (11.7-16.6); Lymphocytes # 1.4 10^3/uL (0.8-4.8); Mean Corpuscular HGB Conc 33.2 g/dL (30.0-36.0); Mean Corpuscular Hemoglobin 31.3 pg (28.0-34.0); Mean Corpuscular Volume 94.3 fl (80-94); Mean Platelet Volume 8.9 fL (7.4-10.4); Monocytes # 0.9 10^3/uL (0.2-0.9); Monocytes % 6.8 %; Neutrophils # 10.79 10^3/uL (1.8-7.7); Neutrophils % 78.3 %; Nucleated Red Blood Cells % 0 %; Platelet Count 343 10^3/cmm (130-400); Red Blood Count 4.02 10^6/uL (4.1-5.3); Red Cell Distribution Width 13.8 % (12.1-15.1); White Blood Count 13.8 10^3/uL (4.0-10.0)
[2022-09-29 11:45] LABS: Alanine Aminotransferase 10 U/L (0-41); Albumin Level 4.1 g/dL (3.5-5.2); Alkaline Phosphatase 50 U/L (40-130); Anion Gap 16.8 (5-19); Aspartate Amino Transferase 12 U/L (0-40); Blood Urea Nitrogen 39 mg/dL (6-20); Calcium 9.2 mg/dL (8.5-10.5); Carbon Dioxide 22 mmol/L (22-29); Chloride 100 mmol/L (98-107); Globulin 1.9 g/dL (1.3-4.6); Glomerular Filtration Rate 29.7 mL/min (90-130); Glucose 138 mg/dL (65-115); Osmolality Calculated 290 mOsm/kg (285-295); Potassium 4.8 mmol/L (3.5-5.1); Sodium 134 mmol/L (136-145); Total Bilirubin 0.2 mg/dL (0.15-1.2)
== END 2022-09-29 10:32 | disposition home or self-care (01) ==
LOC: LAB 10:35
PROVIDERS: PCP Family Medicine; Visit Provider Specialist
DX: G47.33 Obstructive sleep apnea (adult) (pediatric) (principal)
CPT/HCPCS: 36415; 80053; 85025; 93005

== ENCOUNTER 2022-10-13 14:30 | Oncology outpatient (recurring) (ONCR) | payer MEDICARE, MEDICAID, SELFPAY ==
[2022-09-22] MEDS: sodium chloride 0.9% 1,000 ML 999 ML IV (15:13)
[2022-09-22 15:14] VITALS: BP 119/85; PULSE 90; RESP 18; TEMP 37.2; O2SAT 96
[2022-09-22 16:32] VITALS: BP 113/70; PULSE 83; RESP 16; TEMP 36.6; O2SAT 98
[2022-09-29 15:00] VITALS: BP 117/80; PULSE 90; RESP 16; TEMP 36.8; O2SAT 96
[2022-09-29] MEDS: sodium chloride 0.9% 1,000 ML 999 ML IV (15:14)
[2022-09-29 16:20] VITALS: BP 114/74; PULSE 91; RESP 16; TEMP 36.7; O2SAT 100
[2022-10-06 15:00] VITALS: BP 117/72; PULSE 96; RESP 16; TEMP 37.2; O2SAT 96
[2022-10-06] MEDS: sodium chloride 0.9% 1,000 ML 999 ML IV (15:09)
[2022-10-06 16:20] VITALS: BP 122/72; PULSE 95; RESP 16; TEMP 37.2; O2SAT 94
[2022-10-13 14:22] VITALS: BP 136/76; PULSE 106; RESP 18; TEMP 37.5; O2SAT 92
[2022-10-13] MEDS: sodium chloride 0.9% 1,000 ML 999 ML IV (14:28)
== END 2022-10-16 23:59 | disposition home or self-care (01) ==
PROVIDERS: PCP Family Medicine; Visit Provider Family Medicine
DX: E86.0 Dehydration (principal)
CPT/HCPCS: 96360; J7030

== ENCOUNTER → 2022-10-14 13:39 | Outpatient (BNVA) | payer MEDICARE, MEDICAID, SELFPAY | PROVIDERS: PCP Family Medicine; Visit Provider Internal Medicine Cardiovascular Disease | DX: I95.1 Orthostatic hypotension (principal); I77.9 Disorder of arteries and arterioles, unspecified; N40.0 Benign prostatic hyperplasia without lower urinary tract symptoms; I25.118 Atherosclerotic heart disease of native coronary artery with other forms of angina pectoris; I13.0 Hypertensive heart and chronic kidney disease with heart failure and stage 1 through stage 4 chronic kidney disease, or unspecified chronic kidney disease; E11.22 Type 2 diabetes mellitus with diabetic chronic kidney disease; F17.210 Nicotine dependence, cigarettes, uncomplicated; I50.9 Heart failure, unspecified; Z79.84 Long term (current) use of oral hypoglycemic drugs; N18.9 Chronic kidney disease, unspecified; M35.3 Polymyalgia rheumatica | CPT/HCPCS: 99214 ==

== ENCOUNTER 2022-10-23 10:57 | Outpatient (CLI) | payer MEDICARE, MEDICAID, SELFPAY ==
[2022-10-23 11:23] LABS: Basophils # 0.1 10^3/uL (0.0-0.1); Basophils % 0.9 %; Hematocrit 35.6 % (37-53); Lymphocytes # 0.8 10^3/uL (0.8-4.8); Lymphocytes % 7.2 %; Mean Corpuscular HGB Conc 33.4 g/dL (30-55); Mean Corpuscular Volume 95.7 fl (82-101); Mean Platelet Volume 8.5 fL (7.4-10.4); Monocytes # 0.9 10^3/uL (0.2-0.9); Monocytes % 7.7 %; Neutrophils # 8.34 10^3/uL (1.8-7.7); Neutrophils % 74.7 %; Nucleated Red Blood Cells % 0 %; Platelet Count 286 10^3/cmm (157-399); Red Blood Count 3.72 10^6/uL (3.85-5.65); Red Cell Distribution Width 13.8 % (12.1-15.1); White Blood Count 11.17 10^3/uL (3.29-11.43)
[2022-10-23 11:40] LABS: Creatinine Urine, Random 27 mg/dL (39-259); Microalbumin Random Urine 2 ug/dL (0-20)
[2022-10-23 11:48] LABS: Microalbum Creatinine Ratio Ur 74 mg/dL (0-20)
[2022-10-23 11:53] LABS: Albumin Level 4.1 g/dL (3.5-5.2); Anion Gap 15.5 (5-19); Blood Urea Nitrogen 43 mg/dL (6-20); Calcium 8.6 mg/dL (8.5-10.5); Carbon Dioxide 19 mmol/L (22-29); Chloride 104 mmol/L (98-107); Glomerular Filtration Rate 34.9 mL/min (90-130); Glucose 78 mg/dL (65-115); Phosphorus 4.1 mg/dL (2.5-4.5); Potassium 5.5 mmol/L (3.5-5.1); Sodium 133 mmol/L (136-145)
[2022-10-23 11:54] LABS: Calcium 8.8 mg/dL (8.5-10.5)
[2022-10-23 12:00] LABS: Parathyroid Hormone 87.8 pg/mL (15-65)
[2022-10-23 12:08] LABS: 25 Hydroxy Vitamin D 53 ng/mL (30-100)
== END 2022-10-23 10:58 | disposition home or self-care (01) ==
PROVIDERS: PCP Family Medicine; Visit Provider Registered Nurse
DX: E55.9 Vitamin D deficiency, unspecified (principal); N18.32 Chronic kidney disease, stage 3b
CPT/HCPCS: 36415; 80069; 82044; 82306; 82310; 83970; 85025

== ENCOUNTER → 2022-10-29 12:54 | Outpatient (BNVA) | payer MEDICARE, MEDICAID, SELFPAY | PROVIDERS: PCP Family Medicine; Visit Provider Internal Medicine Rheumatology | DX: M35.3 Polymyalgia rheumatica (principal); R76.8 Other specified abnormal immunological findings in serum; M06.9 Rheumatoid arthritis, unspecified; Z71.85 Encounter for immunization safety counseling; Z79.899 Other long term (current) drug therapy; A31.0 Pulmonary mycobacterial infection | CPT/HCPCS: 99214 ==

== ENCOUNTER → 2022-10-30 15:04 | Outpatient (BNVA) | payer MEDICARE, MEDICAID, SELFPAY | PROVIDERS: PCP Family Medicine; Visit Provider Student in an Organized Health Care Education/Training Program | DX: A31.0 Pulmonary mycobacterial infection (principal); K52.9 Noninfective gastroenteritis and colitis, unspecified | CPT/HCPCS: 99213 ==

== ENCOUNTER 2022-11-13 13:45 | Outpatient (CLI) | payer MEDICARE, MEDICAID, SELFPAY ==
[2022-11-13 14:13] LABS: Basophils # 0.1 10^3/uL (0.0-0.1); Basophils % 0.7 %; Eosinophils # 0.5 10^3/uL (0.0-0.8); Eosinophils % 4.1 %; Hematocrit 37.5 % (37-53); Lymphocytes # 1.6 10^3/uL (0.8-4.8); Lymphocytes % 12.6 %; Mean Corpuscular HGB Conc 34.1 g/dL (30-55); Mean Corpuscular Hemoglobin 31.3 pg (27-33); Mean Corpuscular Volume 91.7 fl (82-101); Mean Platelet Volume 8.5 fL (7.4-10.4); Monocytes # 1.2 10^3/uL (0.2-0.9); Monocytes % 9.9 %; Neutrophils # 8.94 10^3/uL (1.8-7.7); Neutrophils % 72.3 %; Nucleated Red Blood Cells % 0 %; Platelet Count 334 10^3/cmm (157-399); Red Blood Count 4.09 10^6/uL (3.85-5.65); Red Cell Distribution Width 13.5 % (12.1-15.1); White Blood Count 12.38 10^3/uL (3.29-11.43)
== END 2022-11-13 13:46 | disposition home or self-care (01) ==
PROVIDERS: PCP Family Medicine; Visit Provider Student in an Organized Health Care Education/Training Program
DX: A31.0 Pulmonary mycobacterial infection (principal)
CPT/HCPCS: 36415; 85025; 87015; 87116; 87206; 87801

== ENCOUNTER 2022-11-14 08:56 | Oncology outpatient (recurring) (ONCR) | payer MEDICARE, MEDICAID, SELFPAY ==
[2022-11-05 14:50] VITALS: BP 145/77; PULSE 86; RESP 17; TEMP 36.4; O2SAT 96
[2022-11-05] MEDS: sodium chloride 0.9% 1,000 ML 999 ML IV (15:03)
[2022-11-05 16:32] VITALS: BP 163/87; PULSE 77; RESP 16; TEMP 36.8; O2SAT 96
[2022-11-14] MEDS: sodium chloride 0.9% 1,000 ML 999 ML IV (09:20)
[2022-11-14 10:00] VITALS: BP 148/87; PULSE 94; RESP 16; TEMP 36.9; O2SAT 98
[2022-11-14 10:30] VITALS: BP 164/93; PULSE 86; RESP 20; TEMP 37.2; O2SAT 99
== END 2022-11-15 23:59 | disposition home or self-care (01) ==
PROVIDERS: PCP Family Medicine; Visit Provider Family Medicine
DX: E86.0 Dehydration (principal); Z53.9 Procedure and treatment not carried out, unspecified reason
CPT/HCPCS: 96360; J7030

== ENCOUNTER 2022-11-20 15:48 | Outpatient (CLI) | payer MEDICARE, MEDICAID, SELFPAY ==
--- NOTE | 2022-11-20 16:00 | CTR_ITS ---
PROCEDURE INFORMATION: Exam: CT Chest Without Contrast; Diagnostic Exam date and time: 11/20/2022 3:57 PM Age: 56 years old Clinical indication: Shortness of breath; Additional info: Pulmonary mac TECHNIQUE: Imaging protocol: Diagnostic computed tomography of the chest without contrast. Radiation optimization: All CT scans at this facility use at least one of these dose optimization techniques: automated exposure control; mA and/or kV adjustment per patient size (includes targeted exams where dose is matched to clinical indication); or iterative reconstruction. REPORTING DATA: Count of CT and Cardiac NM exams in prior 12 months: This patient has received 3 known CTs and 0 known cardiac nuclear medicine studies in the 12 months prior to the current study. COMPARISON: CT chest wo con [id number] 08/12/2022 1:02 PM RADIATION DOSE METRICS: Total DLP (mGy-cm): 396.01 FINDINGS: Lungs: Stable upper lung predominant emphysematous change with prominent left apical bulla. Fibrocavitary changes at the apical upper lobes again redemonstrated with similar appearance of left-sided cavitary lesion measuring approximately 7.7 x 6.0 cm on axial image 16 of series 4. No new consolidation or mass. Pleural spaces: Unremarkable. No pneumothorax. No pleural effusion. Heart: Unremarkable. No cardiomegaly. No pericardial effusion. Coronary arteries: Moderate coronary artery calcification. Lymph nodes: No enlarged lymph nodes. Vasculature: Mild systemic atherosclerotic calcification without aortic aneurysm. Gallbladder and bile ducts: Prior cholecystectomy. Kidneys and ureters: Again, partially visualized numerous bilateral renal and liver cysts and subcentimeter hypodensities. Bones/joints: No acute fracture. Stable chronic fracture deformity of the right 8th rib. Soft tissues: Unremarkable. CT/CT chest wo con [id number] IMPRESSION: 1. Stable abnormal pulmonary exam without acute findings. 2. Additional chronic and incidental findings as above. COMMENTS: 1. Consistent with the [employer]'s Incidental Findings Committee white paper (J Am Keo Radiol 2018): Any incidental renal lesion less than 1 cm or classified as too small to characterize, or any incidental cystic renal lesion characterized as simple-appearing, is likely benign. No follow-up imaging is recommended for these lesions per consensus recommendations based on imaging criteria. 2. In the absence of a history or active diagnosis of lung cancer, it is recommended that this patient with emphysema be evaluated for enrollment in a low dose CT lung cancer screening program.
== END 2022-11-20 15:49 | disposition home or self-care (01) ==
LOC: RAD 15:50
PROVIDERS: PCP Family Medicine; Visit Provider Student in an Organized Health Care Education/Training Program
DX: A31.0 Pulmonary mycobacterial infection (principal)
CPT/HCPCS: 71250

== ENCOUNTER 2022-12-16 15:00 | Oncology outpatient (recurring) (ONCR) | payer MEDICARE, MEDICAID, SELFPAY ==
[2022-11-20] MEDS: sodium chloride 0.9% 1,000 ML 999 ML IV (13:36)
[2022-11-20 13:45] VITALS: BP 109/68; PULSE 78; RESP 17; TEMP 36.6; O2SAT 98
[2022-11-20 14:40] VITALS: BP 121/71; PULSE 74; RESP 18; TEMP 36.6; O2SAT 97
[2022-11-20 16:46] VITALS: BP 108/78; PULSE 78; RESP 18; TEMP 36.6; O2SAT 99
[2022-11-25 10:00] VITALS: BP 134/91; PULSE 94; RESP 18; TEMP 36.9; O2SAT 98; BMI 24.8
[2022-11-25] MEDS: sodium chloride 0.9% 1,000 ML 999 ML IV (10:24)
[2022-11-25 11:38] VITALS: BP 146/96; PULSE 84; RESP 17; TEMP 36.9; O2SAT 99
--- OUTSIDE RECORDS SUMMARY | 2022-12-01 14:00 | XMS_ITS | Patient Health Record ---
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 Name Role Phone Jarred Hatch MD Primary Care Provider Unavailkelley Frazier MD, Bob Unavailable [phone] Meme Spencer Unavailable [phone] ALLERGIES Allergen (clinical drug ingredient) Drug/Non Drug Allergy documented on EMR Reaction Allergy Type Onset Date Status sulfa (uncoded) Unknown Allergy Acti ve wasp venom (uncoded) Unknown Allergy Active RESULTS Component Value Reference Range Notes [employer] Results Reviewed date:05/01/2022 03:46:45 PM Interpretation: Performing Lab:[id number] [facility], [address] [place] [address] Aniya Sanchez MD Notes/Report: [facility], [address], [facility], [place] [address], , L ab Director: Hesham Rivers MD, CLIA ID# [id number] Codeine Quantification negative 50 ng/mL Morphine Quantification negative 50 ng/mL Hydrocodone Quantification negative 50 ng/mL Norhydrocodone Quantification negative 50 ng/mL Hydromorphone Quantification negative 50 ng/mL Oxycodone Quantification negative 50 ng/mL Noroxycodone Quantification negative 50 ng/mL Oxymorphone Quantification negative 50 ng/mL Buprenorphine Quantification negative 5 ng/mL Norbuprenorphine Quantification negative 20 ng/mL Fentanyl Quantification negative 1 ng/mL Norfentanyl Quantification negative 8 ng/mL Methadone Quantification negative 100 ng/mL EDDP (Methadone metabolite) Quantification negative 100 ng/mL Tramadol Quantification negative 100 ng/mL P-jzoslhaig-hveaivgf Quantification negative 100 n g/mL R-Igpsrvzem-Atvcszdw Quantification negative 100 n g/mL Tapentadol Quantification negative 50 ng/mL Meperidine Quantification negative 50 ng/mL Normeperidine Quantification negative 50 ng/mL Naltrexone Quantification negative 10 ng/mL Naltrexol Quantification negative 10 ng/mL Naloxone Quantification negative 20 Levorphanol / Dextrorphan Quantification negative 50 ng/mL 4-ANPP Quantification Fen Neg 2 ng/mL Acetyl fentanyl Quantification Fen Neg 2 ng/mL Acetyl norfentanyl Quantification Fen Neg 5 ng/mL Acryl fentanyl Quantification Fen Neg 1 ng/mL Carfentanil Quantification Fen Neg 2 ng/mL Para-fluorofentanyl Quantification Fen Neg 1 ng/m L CREATININE (CHEMICAL) normal-37.6 >20 mg/dL mg/dL OXIDANT normal-0 <200 ug/mL ug/mL PH normal-5.6 4.5 - 9.5 SPECIFIC GRAVITY normal-1.008 1.003 - 1.035 Embedded PDF Reviewed date:05/01/2022 03:47:25 PM Interpretation: Performing Lab: Notes/Report: 4-ANPP: Fentanyl Negative. Acetyl fentanyl: Fentanyl Negative. Acetyl norfentan yl: Fentanyl Negative. Acryl fentanyl: Fentanyl Negative. Carfentanil: Fentanyl Negative. Para-fluorofentanyl: Fentanyl Negative. [facility], [address] [address], , L ab Director: Hesham Rivers MD, CLIA ID# [id number] Urine tox screen / MS if ind icated Reviewed date:05/01/2022 03:44:47 PM Interpretation: Performing Lab: Notes/Report: REASON FOR REFERRAL Reason Cervical radiculopat hy; Chronic bilateral back pain Diagnosis 1 Radiculopathy, cervi bo region (M54.12) Diagnosis 2 Dorsalgia, unspecifi ed (M54.9) Diagnosis 3 Other chronic pain ( G89.29) Referring Provider First Name Jarred Referring Provider Last Name Mamie Referred Organization [facility] Referred Provider Bob Frazier Referred Address [address],[place], [id number] Referred Provider Specialty Pain Managem ent General Notes Libra Garibay 08/2022 09:41:57 AM > Sent for insurance verification. 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 Referral Priority Routine Reason Evaluation for possi ble Inspire device trial Diagnosis 1 Obstructive sleep ap fazal (adult) (pediatric) (G47.33) Referral Organization [facility] Referring Provider First Name Bob Referring Provider Last Name Karin Referring Provider Speciality Pain Manag ement Referred Provider Brandon Ramirez Referred Provider Specialty Otolaryngolo gy General Notes Irene Christianson 2022 02:30:39 PM > referral faxed, Irene Christianson 05/15/2022 08:53:15 AM > Received a faxed from Dr. Ramirez's office with appt date and time. , Meme Licona, [facility] 08/02/2022 02:19:13 PM > Request for Health Information-Referral Follow-up faxed. Referral Priority Routine Referral Appointment Date 06/09/2022 MEDICATIONS Medication SIG (Take, Route, Frequency, Duration) Notes Start Date End Date Status ramelteon 8 mg 1 tab(s) orally once a day (at bedtime) Active citalopram 20 mg 1 tab(s) orally once a day for 30 day(s) Active rifAMPin 300 mg 2 cap(s) orally once a day for 30 day(s) Active acetaminophen-hydrocodone 325 mg-5 mg 1 tab orally Q4H prn pain (max 4/day; hold within 4H of planned sleep) for 30 day(s) 10/28/2022 Active Metoprolol Succinate ER 25 mg 1 tab(s) orally 2 times a day Active Aleve sodium 220 mg 2 tabs orally every 12 hours Active nitroglycerin 0.4 mg 1 tab(s) sublingual ly as directed Active Anoro Ellipta 62.5 mcg-25 mcg/inh 1 puff(s) inhaled once a day for 30 day(s) Active pantoprazole 40 mg 1 tab(s) orally once a day for 30 day(s) Active aspirin 81 mg 1 tab(s) orally once a day for 30 day(s) Active prasugrel 10 mg 1 tab(s) orally once a day for 30 day(s) Active cyclobenzaprine 5 mg 1 tab(s) orally 3 t imes a day, as needed for spasm Active Symbicort 160 mcg-4.5 mcg/inh 2 puff(s) inhaled 2 times a day for 30 day(s) Active ethambutol 400 mg 2 1/2 tab(s) orally once a day Active tamsulosin 0.4 mg 1 cap(s) orally once a day for 30 day(s) Active gabapentin 800 mg 1 tab(s) orally 3 ti mes a day for 30 day(s) Active Vitamin B12 2500 mcg 1 tab(s) sublingual ly once a day for 30 day(s) Active lisinopril 20 mg 1 tab(s) orally once a day for 30 day(s) Active Vitamin D3 50 mcg 1 tab(s) orally once a day for 30 day(s) Active azithromycin 500 mg 1 tab(s) orally once a day, as needed for infection Active predniSONE 20 mg 1 tab(s) orally once a day for pain flare Active cholestyramine 4 g/5 g as directed orall y 2 times a day for 30 day(s) Active SOCIAL HISTORY Tobacco Use: Social History Observation Description Date Details (start date - stop date) Current Smoker NA - NA Sex Assigned At : Social History Observation Description Sex Assigned At Unknown alcohol Question Answer Notes Did you have a drink containing alcohol in the p ast year? No Points 0 Interpretation Negative Tobacco use: Question Answer Notes : current smoker Are you interested in quitting? Ready to quit How many cigarettes a day do you smoke? 21-30 How often do you smoke cigarettes? every day How soon after you wake up do you smoke your fir st cigarette? 6-30 min When did you start smoking? 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) Active confirmed High risk drug monitoring status (119420190) Problem Other specified anxiety disorders (F41.8) Active confirmed Anxiety disorde r (614207514) Problem Obstructive sleep apnea (adult) (pediatric) (G47.33) Active confirmed Obstructive sle ep apnea syndrome (disorder) (20177584) Problem Other chronic pain (G89.29) Active confirmed Chronic pain (11331660) Problem Spondylolisthesi s, lumbar region (M43.16) Active confirmed Acquired spondylolisthesis (802326491) Problem Radiculopathy, cervical region (M54.12) Active confirmed Cervical radiculopathy (98377617) Problem Cervicalgia (M54.2) Active confirmed Cervicalgia (25746043) Problem Dorsalgia, unspecified (M54.9) Active confirmed Backache (908800921) Problem Other chcf (current) drug therapy (Z79.899) Active confirmed Long-term curre nt use of drug therapy (859583425) Problem Myalgia, other site (M79.18) Active confirmed Muscle pain (60683044) Problem Vertebrogenic low back pain (M54.51) Active confirmed Low back pain (finding) (208296639) Encounters Encounter Location Date Provider Diagnosis [facility] [address] [place], [place] [id number] 04/28/2022 Meme Licona Vertebrogenic low ba ck pain M54.51 ; Spondylosis without myelopathy or radiculopathy, lumbar region M47.816 ; Spondylolisthesis, lumbar region M43.16 ; Obstructive sleep apnea (adult) (pediatric) G47.33 and 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 Z79.899 [facility] [address] [facility] [place] [id number] 05/07/2022 Bob Frazier Sacroiliitis, not elsewhere classified M46.1 ; Other specified anxiety disorders F41.8 ; Vertebrogenic low back pain M54.51 ; Myalgia, other site M79.18 ; Spondylosis without myelopathy or radiculopathy, lumbar region M47.816 ; Spondylolisthesis, lumbar region M43.16 ; Cervicalgia M54.2 ; Obstructive sleep apnea (adult) (pediatric) G47.33 and Other chcf (current) drug therapy Z79.899 [facility] [address] [place], [place] [id number] 05/08/2022 Bob Frazier [facility] [address] [place] [address] 06/02/2022 Bob Frazier Sacroiliitis, not elsewhere classified M46.1 and Other specified anxiety disorders F41.8 [facility] [address] [place], [place] [id number] 06/04/2022 Bob Frazier Sacroiliitis, not elsewhere classified M46.1 ; Vertebrogenic low back pain M54.51 ; Spondylosis without myelopathy or radiculopathy, lumbar region M47.816 ; Myalgia, other site M79.18 ; Spondylolisthesis, lumbar region M43.16 ; Cervicalgia M54.2 ; Obstructive sleep apnea (adult) (pediatric) G47.33 and ferry terminal supervisor (current) use of opiate analgesic Z79.891 [facility] [address] [place] [id number] 06/16/2022 Bob Frazier [facility] [address] [place] [id number] 07/29/2022 Bob Frazier Spondylosis without myelopathy or radiculopathy, lumbar region M47.816 ; Other specified anxiety disorders F41.8 ; Other chronic pain G89.29 ; Vertebrogenic low back pain M54.51 ; Sacroiliitis, not elsewhere classified M46.1 ; Spondylolisthesis, lumbar region M43.16 and Obstructive sleep apnea (adult) (pediatric) G47.33 [facility] [address] [place] [address] 09/15/2022 Bob Frazier Spondylosis without myelopathy or radiculopathy, lumbar region M47.816 and Other specified anxiety disorders F41.8 [facility] [address] [place], [place] [id number] 09/16/2022 Bob Frazier Spondylosis without myelopathy or radiculopathy, lumbar region M47.816 and Other specified anxiety disorders F41.8 [facility] [address] [place], [place] [id number] 10/28/2022 Meme Licona Spondylosis without myelopathy or radiculopathy, lumbar region M47.816 ; Other specified anxiety disorders F41.8 ; Other chronic pain G89.29 ; Vertebrogenic low back pain M54.51 and Obstructive sleep apnea (adult) (pediatric) G47.33 [facility] [address] [place] [address] 11/03/2022 Bob Godinezelizabeth Spondylosis without myelopathy or radiculopathy, lumbar region M47.816 and Other specified anxiety disorders F41.8 [facility] [address] [place], [place] [id number] 11/04/2022 Bob Frazier Spondylosis without myelopathy or radiculopathy, lumbar region M47.816 and Other specified anxiety disorders F41.8 [facility] [address] [place] [phone] 11/17/2022 Bob Frazier Spondylosis without myelopathy or radiculopathy, lumbar region M47.816 and Other specified anxiety disorders F41.8 [facility] [address] [place], [place] [id number] 12/01/2022 Bob Godinezelizabeth ASSESSMENTS Encounter Date Diagnosis Assessment Notes Treatment Notes Treatment Clinical Notes 04/28/2022 Spondylosis without myelopathy or radiculopathy, lumbar region (ICD-10 - M47.816) 04/28/2022 Vertebrogenic low back pain (ICD-10 - M54.51) Chronic axial lumbar spine pain. Prior conservative treatment by patient as noted, below. No prior surgical treatment noted. Prior minimally invasive interventional spine treatment via another provider as noted, below. Oral opioid medication use as noted, below. Current regimen is of no benefit. Consider treatment options pending evaluation by Dr. Frazier 05/07/2022 Sacroiliitis, not elsewhere classified (ICD-10 - M46.1) Plan right SI joint steroid / local anesthetic injection. Risks, benefits, and alternatives reviewed with patient. Questions answered to the patient's reported satisfaction. Preparation for procedure reviewed with patient; printed instructions given. Sacral denervation procedure via RFA is not authorized by Medicare. 05/07/2022 Other specified anxiety disorders (ICD-10 - F41.8) Patient requests no IV / no IV sedation for procedure 06/02/2022 Sacroiliitis, not elsewhere classified (ICD-10 - M46.1) Plan right SI joint local anesthetic / steroid injection 06/02/2022 Other specified anxiety disorders (ICD-10 - F41.8) Patient requests no IV sedation 06/04/2022 Sacroiliitis, not elsewhere classified (ICD-10 - M46.1) Right SI joint steroid / local anesthetic injection 48 hours ago with no diagnostic efficacy appreciated and minimal steroid benefit thus far. Plan 2 week phone follow up as scheduled 06/04/2022 Vertebrogenic low back pain (ICD-10 - M54.51) Chronic axial lumbosacral (and cervical) spine pain. Prior conservative treatment by patient as noted, below. No prior surgical treatment noted. Prior minimally invasive interventional spine treatment via another provider as noted, below. Prior minimally invasive interventional spine treatment via this provider (SI joint injection) as noted, below. Oral gabapentinoid use noted (as prescribed via another provider). Oral opioid medication use with history of benefit. Continue medication management 07/29/2022 Spondylosis without myelopathy or radiculopathy, lumbar region (ICD-10 - M47.816) Prior blocks and RFA procedure via another provider with history of moderate benefit that has waned. Plan bilateral L3 medial branch, bilateral L4 medial branch, bilateral L5 dorsal ramus diagnostic blocks. Consider repeat / confirmatory blocks (as required by patient's insurer), and possible RFA, pending outcome of diagnostic blocks. Risks, benefits, and alternatives reviewed with patient. Questions answered to the patient's reported satisfaction. Preparation for procedure reviewed with patient; printed instructions declined 07/29/2022 Other specified anxiety disorders (ICD-10 - F41.8) Plan moderate IV sedation as needed wtih midazolam and / or fentanyl 09/15/2022 Spondylosis without myelopathy or radiculopathy, lumbar region (ICD-10 - M47.816) Plan lumbar diagnostic blocks: bilateral L3, L4 medial branch and bilateral L5 dorsal ramus 09/15/2022 Other specified anxiety disorders (ICD-10 - F41.8) Plan moderate IV sedation with midazolam and/or fentanyl 09/16/2022 Spondylosis without myelopathy or radiculopathy, lumbar region (ICD-10 - M47.816) Initial bilateral L3 medial branch, bilateral L4 medial branch, bilateral L5 dorsal ramus diagnostic blocks completed with a 95% reduction in pain noted. Plan repeat / confirmatory blocks (as required by patient's insurer), and possible RFA, pending outcome of diagnostic blocks. Risks, benefits, and alternatives reviewed with patient a prior office visit. Questions answered to the patient's reported satisfaction. Preparation for procedure reviewed with patient by phone 09/16/2022 Other specified anxiety disorders (ICD-10 - F41.8) Plan moderate IV sedation as needed wtih midazolam and / or fentanyl 10/28/2022 Spondylosis without myelopathy or radiculopathy, lumbar region (ICD-10 - M47.816) Initial bilateral L3 medial branch, bilateral L4 medial branch, bilateral L5 dorsal ramus diagnostic blocks completed with a 95% reduction in pain noted. Plan repeat / confirmatory blocks (as required by patient's insurer), and possible RFA, pending outcome of diagnostic blocks. Risks, benefits, and alternatives reviewed with patient a prior office visit. Questions answered to the patient's reported satisfaction. Preparation for procedure reviewed with patient; printed instructions declined 10/28/2022 Other specified anxiety disorders (ICD-10 - F41.8) Plan moderate IV sedation as needed with midazolam and / or fentanyl 11/03/2022 Spondylosis without myelopathy or radiculopathy, lumbar region (ICD-10 - M47.816) Plan lumbar diagnostic blocks: bilateral L3, L4 medial branch and bilateral L5 dorsal ramus 11/03/2022 Other specified anxiety disorders (ICD-10 - F41.8) Plan moderate IV sedation with midazolam and/or fentanyl 11/04/2022 Spondylosis without myelopathy or radiculopathy, lumbar region (ICD-10 - M47.816) Initial and confirmatory bilateral L3 medial branch, bilateral L4 medial branch, bilateral L5 dorsal ramus diagnostic blocks completed with 95% and 85% reductions in pain noted, respectively. Plan RFA since diagnostic blocks appreciated. Risks, benefits, and alternatives reviewed with patient a prior office visit. Questions answered to the patient's reported satisfaction. Preparation for procedure reviewed with patient by phone. 11/04/2022 Other specified anxiety disorders (ICD-10 - F41.8) Plan monitored anesthesia care 11/17/2022 Spondylosis without myelopathy or radiculopathy, lumbar region (ICD-10 - M47.816) Plan bilateral lumbar RFA of L3, L4 medial branch and L5 dorsal ramus 11/17/2022 Other specified anxiety disorders (ICD-10 - F41.8) Plan monitored anesthesia care 10/28/2022 Other chronic pain (ICD-10 - G89.29) Patient reports that taking his pain medication allows him to spend more time with his grand kids. Plan to continue oral opioid medication management 07/29/2022 Other chronic pain (ICD-10 - G89.29) Oral opioid medication use with history of benefit. Continue medication management 05/07/2022 Vertebrogenic low back pain (ICD-10 - M54.51) Chronic axial lumbosacral (and cervical) spine pain. Prior conservative treatment by patient as noted, below. No prior surgical treatment noted. Prior minimally invasive interventional spine treatment via another provider as noted, below. Oral gabapentanoid use noted (as prescribed via another provider). Oral opioid medication use as noted, below. Current regimen is of no benefit. Prior remote use of hydrocodone with benefit and without adverse effects as per patient report. Plan hydrocodone trial and possible upward titration, if needed 06/04/2022 Spondylosis without myelopathy or radiculopathy, lumbar region (ICD-10 - M47.816) Prior blocks and RFA procedure via another provider with history of moderate benefit that may have waned. Consider additional blocks and possible RFA as needed / desired by patient 04/28/2022 Spondylolisthesis, lumbar region (ICD-10 - M43.16) L2-L3 and L3-L4 listhesis noted on 05/03/21 x-ray report. Consider completion of flexion / extension x-rays to evaluate for spinal instability 04/28/2022 Obstructive sleep apnea (adult) (pediatric) (ICD-10 - G47.33) Plan to obtain [facility] sleep study report. Patient has reported history of inability to tolerate use of a CPAP device. 05/07/2022 Myalgia, other site (ICD-10 - M79.18) Relaxant medication use noted (as prescribed via another provider) 06/04/2022 Myalgia, other site (ICD-10 - M79.18) Relaxant medication use noted (as prescribed via another provider) 10/28/2022 Vertebrogenic low back pain (ICD-10 - M54.51) Chronic axial lumbosacral spine pain 07/29/2022 Vertebrogenic low back pain (ICD-10 - M54.51) Chronic axial lumbosacral spine pain 07/29/2022 Sacroiliitis, not elsewhere classified (ICD-10 - M46.1) Right SI joint injection with efficacy appreciated by patient for right sacral axial pain and RLE pain (RLE pain resolved as of 07/29/22) 06/04/2022 Spondylolisthesis, lumbar region (ICD-10 - M43.16) L2-L3 and L3-L4 listhesis noted on 05/03/21 x-ray report. Consider completion of flexion / extension x-rays to evaluate for spinal instability 10/28/2022 Obstructive sleep apnea (adult) (pediatric) (ICD-10 - G47.33) Prior sleep study report revealed a decrease of AHI from 20 to 0.5 with CPAP titration, however, patient has reported history of inability to tolerate use of a CPAP device. Referral to Dr. Ramirez completed. 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 Urine Tox screen today; random screens per protocol. Opioid Risk Tool score 0 - low risk 05/07/2022 Spondylosis without myelopathy or radiculopathy, lumbar region (ICD-10 - M47.816) Prior blocks and RFA procedure via another provider with history of moderate benefit that may have waned. Consider additional blocks and possible RFA as needed / desired by patient and pending outcome of sacral intervention 05/07/2022 Spondylolisthesis, lumbar region (ICD-10 - M43.16) L2-L3 and L3-L4 listhesis noted on 05/03/21 x-ray report. Consider completion of flexion / extension x-rays to evaluate for spinal instability 07/29/2022 Spondylolisthesis, lumbar region (ICD-10 - M43.16) L2-L3 and L3-L4 listhesis noted on 05/03/21 x-ray report. Consider completion of flexion / extension x-rays to evaluate for spinal instability 06/04/2022 Cervicalgia (ICD-10 - M54.2) Patient has reported of significant neck pain. Previous epidural steroid injection via Dr. Gilliam with history of moderate benefit that has since waned as per patient report. Do not anticipate offering patient any fluoroscope - guided minimally invasive interventional spine treatment for cervical spine via this facility / provider (prior scope of practice change by this provider). Patient has stated understanding. Would look to refer patient back to Dr. Gilliam (or other provider) if patient were to request additional minimally invasive interventional spine treatment for the cervical spine 06/04/2022 Obstructive sleep apnea (adult) (pediatric) (ICD-10 - G47.33) Prior sleep study report revealed a decrease of AHI from 20 to 0.5 with CPAP titration, however, patient has reported history of inability to tolerate use of a CPAP device. Plan referral to Dr. Ramirez for evaluation and possible treatment. Plan to restrict opioid usage in relation to sleep: patient has verbalized understanding to hold short-acting opioids within four hours of planned sleep. Patient has been counseled on the risks of sleep apnea, with or without opioid and / or other sedative usage, and the patient verbalized understanding and acceptance of the increased risk (worsened sleep apnea, respiratory depression, ) with opioid and / or sedative substance usage. Patient has been counseled that synergistic risk occurs with concomitant opioid and sedative usage. Patient has been counseled to hold opioid and / or sedative substances prior to planned sleep or dangerous activities and patient verbalized understanding that noncompliance would be at patient's increased risk 07/29/2022 Obstructive sleep apnea (adult) (pediatric) (ICD-10 - G47.33) Prior sleep study report revealed a decrease of AHI from 20 to 0.5 with CPAP titration, however, patient has reported history of inability to tolerate use of a CPAP device. Referral to Dr. Ramirez completed. Updated sleep study is scheduled to see if he qualifies for Inspire implant trial. Plan to restrict opioid usage in relation to sleep: patient has verbalized understanding to hold short-acting opioids within four hours of planned sleep. Patient has been counseled on the risks of sleep apnea, with or without opioid and / or other sedative usage, and the patient verbalized understanding and acceptance of the increased risk (worsened sleep apnea, respiratory depression, ) with opioid and / or sedative substance usage. Patient has been counseled that synergistic risk occurs with concomitant opioid and sedative usage. Patient has been counseled to hold opioid and / or sedative substances prior to planned sleep or dangerous activities and patient verbalized understanding that noncompliance would be at patient's increased risk 05/07/2022 Cervicalgia (ICD-10 - M54.2) Patient has reported of significant neck pain. Previous epidural steroid injection via Dr. Gilliam with history of moderate benefit that has since waned as per patient report. Do not anticipate offering patient any fluoroscope - guided minimally invasive interventional spine treatment for cervical spine via this facility / provider (prior scope of practice change by this provider). Patient has stated understanding. Would look to refer patient back to Dr. Gilliam (or other provider) if patient were to request additional minimally invasive interventional spine treatment for the cervical spine 05/07/2022 Obstructive sleep apnea (adult) (pediatric) (ICD-10 - G47.33) Prior sleep study report revealed a decrease of AHI from 20 to 0.5 with CPAP titration, however, patient has reported history of inability to tolerate use of a CPAP device. Plan referral to Dr. Ramirez for evaluation and possible treatment. Plan to restrict opioid usage in relation to sleep: patient has verbalized understanding to hold short-acting opioids within four hours of planned sleep. Patient has been counseled on the risks of sleep apnea, with or without opioid and / or other sedative usage, and the patient verbalized understanding and acceptance of the increased risk (worsened sleep apnea, respiratory depression, ) with opioid and / or sedative substance usage. Patient has been counseled that synergistic risk occurs with concomitant opioid and sedative usage. 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 This places the patient in the [facility] low risk category for total daily opioid usage. Patient has received the Opioid Analgesic [facility] Patient Counseling Guide. Patient has had opportunity to read the Guide and ask questions pertaining to the Guide. Patient has been advised on 05/07/22 that due to the Federal Government concerns and actions, any suspected patient misuse, abuse, or diversion of controlled substances (i.e. opioids/narcotics/pa in killers) WILL result in dissolution of treatment from this clinic. Patients adhering to the concepts contained within the patient's Treatment Agreement will be protected from such termination of care. Patient was given a copy of the Treatment Agreement, signed by patient on 04/28/22. Patient signed an opioid consent form on 05/07/22. Patient has refused offer of a Narcan nasal spray prescription. Opioid Risk Tool score 0 - low risk 05/07/2022 Other [facility] (current) drug therapy (ICD-10 - Z79.899) Patient has received the Opioid Analgesic [facility] Patient Counseling Guide. Patient has had opportunity to read the Guide and ask questions pertaining to the Guide. Patient has been advised on 05/07/22 that due to the Federal Government concerns and actions, any suspected patient misuse, abuse, or diversion of controlled substances (i.e. opioids/narcotics/pa in killers) WILL result in dissolution of treatment from this clinic. Patients adhering to the concepts contained within the patient's Treatment Agreement will be protected from such termination of care. Patient was given a copy of the Treatment Agreement, signed by patient on 04/28/22. Patient signed an opioid consent form on 05/07/22. Opioid Risk Tool score 0 - low risk 04/28/2022 Other Continue above medication as currently prescribed via another provider. Case reviewed with Dr. Frazier. Treatment plan approved 05/07/2022 Other 06/04/2022 Other 10/28/2022 Other 07/29/2022 Other 09/16/2022 Other 11/04/2022 Other PLAN OF TREATMENT Next Appt Details Provider Name:Bob higgins, 12/29/2022 10:08:00 AM, [facility] [place], [place], [id number], Provider Name:Bob higgins, 01/22/2023 01:10:00 PM, [facility] [place], [place], [id number], Insurance Providers Payer Name Payer Address Payer Phone Subscriber Number Group Number Insured Name Patient Relationship to Insured Coverage Start Date Coverage End Date [facility] [address] [address] [place] [address] [id number] Arelis Couch Self - patient is the insured [place] [employer] [address] [place] [address] [id number] Singh Arelis castro Self - patient is the insured MEDICAL (GENERAL) HISTORY Medical History History ICD Code Chronic pain Low back pain Sacroiliitis and lumbar spondylosis and spondylolisthesis Old compression deformities as noted on lumbar plain films report Neck pain Cervical radiculopathy Insomnia Abnormal chest x-ray Acid reflux Acute kidney injury Adrenal insufficiency Congestive heart failure Chronic use of steroids COPD Decreased GFR Dehydration, history of weekly IVF admin istrations Diverticulosis Elevated platelet count Fibromylagia Gastritis and duodenitis Ground glass opacity present on imaging of lung Heart disease Hiatal hernia Lupus Polycystic kidney disease Polymyalgia rheumatica Rheumatoid arthritis Right forearm injury Sepsis Type 2 diabetes mellitus Sleep apnea Surgical History Surgery Date(Month/Year) Colonoscopy with polypectomy, 2011 Angioplasty with stent, performed at [facility] by Dr. Kay, 2014 Cholecystectomy, performed at [facility], 2014 Hernia repair, performed at [facility] in [place], [place], 2014 Placement of stents, cardiac, performed at [facility] by Dr. Valdez, 2020 Colonoscopy, performed in [place], [place], 07/23/22 Hospitalization History Reason Date(Month/Year) Sepsis and renal failure, treated at [facility] , 2020
--- OUTSIDE RECORDS SUMMARY | 2022-12-01 14:00 | XMS_ITS | Continuity of Care Document ---
Author Name Unknown Organization [facility] Address [address] [place] [address] Encounter BENSON_KATINA [id number] Date(s): 11/27/22 - 11/27/[address] [address]- Discharge Disposition: Home or Self Care Attending Physician: THADDEUS SILVA NP Allergies, Adverse Reactions, Alerts Substance Reaction Severity Status sulfa drugs Itching Mild Active Wasp Sting swelling and itching Mild Active Assessment and Plan Future Appointments Diagnostic Tests Pending * Allergen Pork IgE (CQ) 11/27/22 * Allergen Venison IgE (CQ) 11/27/22 * Nwykiaxuo-Dcwbq-7,3-Galactose (Alpha-Gal) IgE (CQ) 11/27/22 * Allergen Beef (f27) IgE (CQ) 11/27/22 Future Scheduled Tests Radiology* CT Abdomen Pelvis [facility]WO 12/05/22 Medications Albuterol (Eqv-ProAir HFA) 90 mcg/inh inhalation aerosol USE 2 INHALATIONS EVERY 6 HOURS NEEDED FOR SHORTNESS OF BREATH Start Date: 07/17/22 Status: Ordered aspirin 81 mg oral capsule = 1 cap(s), Oral, Daily, # 30 cap(s), 0 Refill(s) Start Date: 07/17/22 Status: Ordered atovaquone 750 mg/5 mL oral suspension = 5 mL, Oral, BID, TAKE 10ML BY MOUTH EVERY DAY WITH FOOD, PREFERABLY A HIGH FAT MEAL Start Date: 07/17/22 Status: Ordered azithromycin 500 mg oral tablet TAKE 1 TABLET BY MOUTH EVERY DAY NEEDED FOR INFECTION FOR 30 DAYS Start Date: 07/17/22 Status: Ordered citalopram 20 mg oral tablet = 1 tab(s), Oral, Daily, # 30 tab(s), 0 Refill(s) Start Date: 07/17/22 Status: Ordered fluticasone 50 mcg/inh nasal spray 1 spray(s), Nasal, BID, # 16 gm, 0 Refill(s) Start Date: 07/17/22 Status: Ordered gabapentin 800 mg oral tablet TAKE 1 TABLET BY MOUTH 3 TIMES DAILY FOR 90 DAYS Start Date: 07/17/22 Status: Ordered HYDROcodone-acetaminophen 5 mg-325 mg oral tablet TAKE 1 TABLET BY MOUTH EVERY 4 TO 6 HOURS NEEDED FOR PAIN FOR 30 DAYS (MAX 3/DAY; HOLD WITHIN 4 HOURS OF PLANNED SLEEP). DO not fill prior TO 07/04/22 Start Date: 07/17/22 Status: Ordered lisinopril 20 mg oral tablet = 1 tab(s), Oral, Daily, # 30 tab(s), 0 Refill(s) Start Date: 07/17/22 Status: Ordered Otezla Starter Pack oral tablet 0 Refill(s) Start Date: 07/17/22 Status: Ordered pantoprazole 40 mg oral delayed release tablet TAKE 1 TABLET BY MOUTH EVERY DAY Start Date: 07/17/22 Status: Ordered prasugrel 10 mg oral tablet TAKE 1 TABLET BY MOUTH EVERY DAY Start Date: 07/17/22 Status: Ordered prednisone 20 mg tablet prednisone 20 mg tablet, TAKE 1 TABLET BY MOUTH EVERY DAY FOR JOINT PAIN FLARE Start Date: 07/17/22 Status: Ordered ramelteon 8 mg oral tablet TAKE 1 TABLET BY MOUTH ONCE A NIGHT AT BEDTIME FOR 30 DAYS Start Date: 07/17/22 Status: Ordered rifAMPin 300 mg oral capsule TAKE 2 CAPSULES BY MOUTH IN THE MORNING FOR 30 DAYS Start Date: 07/17/22 Status: Ordered Symbicort 160 mcg-4.5 mcg/inh inhalation aerosol USE 2 INHALATIONS BY MOUTH TWICE DAILY Start Date: 07/17/22 Status: Ordered tamsulosin 0.4 mg oral capsule = 1 cap(s), Oral, Daily, # 30 cap(s), 0 Refill(s) Start Date: 07/17/22 Status: Ordered temazepam 30 mg oral capsule = 1 cap(s), Oral, Daily at Bedtime, PRN for sleep, 0 Refill(s) Start Date: 07/17/22 Status: Ordered triamcinolone 0.1% topical cream Apply twice daily to psoriasis up to 2 weeks/month as needed. Use around neck/ears Start Date: 07/17/22 Status: Ordered Problem List Condition Confirmation Course Effective Dates Status H ealth Status Informant Chronic kidney disease (CKD), stage III (moderate) Confirmed Active COPD (chronic obstructive pulmonary disease) Confirmed Active Polycystic liver disease Confirmed Active CAD (coronary artery disease) Confirmed Active Diverticulosis Confirmed Active Headache Confirmed Active Mycobacterium avium infection Confirmed Active Lupus Confirmed Active Polyarthralgia Confirmed Active Heart attack Confirmed Active Procedures Procedure Date Related Diagnosis Body Site Status Colonoscopy With Biopsy 1 07/25/22 Completed EGD With Biopsy 2 07/25/22 Complet ed cardiac stents Completed CHOLECYSTECTOMY Completed hernia repaif Completed sinus surgery Completed 1auto-populated from documented surgical case 2auto-populated from documented surgical case Results Laboratory List Name Date Bilirubin Direct 11/27/22 Comprehensive Metabolic Profile 11/27/22 Most recent to oldest [Reference Range]: 1 eGFR [>=90 mL/min/1.73m??] 32 mL/min/1.7 3m?? 1 *LOW* (11/27/22 5:49 PM) BUN [8-17 mg/dL] 33 mg/dL *HI* (11/27/22 5:49 PM) Albumin [3.6-4.9 g/dL] 3.6 g/dL (11/27/22 5:49 PM) Alkaline Phosphatase [51-135 U/L] 46 U/L *LOW* (11/27/22 5:49 PM) ALT [31-64 U/L] 21 U/L *LOW* (11/27/22 5:49 PM) Anion Gap [3.1-10.9 mmol/L] 9.0 mmol/L (11/27/22 5:49 PM) AST [16-36 U/L] 18 U/L (11/27/22 5:49 PM) Bili Direct [0.1-0.2 mg/dL] 0.1 mg/dL (11/27/22 5:49 PM) Bili Total [0.1-0.9 mg/dL] 0.3 mg/dL (11/27/22 5:49 PM) BUN/Crea Ratio [6.01-19.99] 14.35 (11/27/22 5:49 PM) Calcium [8.6-10.0 mg/dL] 8.6 mg/dL (11/27/22 5:49 PM) Creatinine [0.6-1.3 mg/dL] 2.3 mg/dL *HI* (11/27/22 5:49 PM) Globulin 3 *NA* (11/27/22 5:49 PM) Potassium [3.6-5.2 mEq/L] 5.6 mEq/L *HI* (11/27/22 5:49 PM) Prot Total [6.5-8.2 g/dL] 6.6 g/dL (11/27/22 5:49 PM) Sodium [136-149 mmol/L] 132 mmol/L *LOW* (11/27/22 5:49 PM) Albumin/Globulin Ratio [1.01-2.49] 1.20 (11/27/22 5:49 PM) Ca Corrected [8.6-10.0 mg/dL] 8.9 mg/dL (11/27/22 5:49 PM) Glucose [71-109 mg/dL] 166 mg/dL *HI* (11/27/22 5:49 PM) Chloride [96-109 mmol/L] 100 mmol/L (11/27/22 5:49 PM) Carbon Dioxide [22-33 mmol/L] 23 mmol/L (11/27/22 5:49 PM) Osmol Calc [276-294 mOsm/kg] 276 mOsm/kg (11/27/22 5:49 PM) 1Interpretive Data: CKD is defined by the presence of glomerular filtration rate (GFR) <60 mL for>3 months and/or evidence of kidney damage (eg, structural abnormalities, histologic abnormalities, albuminuria, urinary sediment abnormalities, renal tubular disorders, and/or history of kidney tr ansplantation) for >3months. This table provides interpretation of specific eGFR values. Creatinine measurements, and therefore eGFR calculations, are affected by very high or very low muscle mass, muscle injury, a diet very high in meat, hepatic cirrhosis, certain drugs, etc. Stages of CKD: Stage Description GFR mL/min 1 Kidney damage with normal or increased GFR 90 2 Kidney damage with mild decrease in GFR 60 to 89 3 Moderate decrease in GFR 30 to 59 4 Severe decrease in GFR 15 to 29 5 Kidney failure <15 (or dialysis) Note: GFR Normal range >60, equation not validated for ages <18 and >70 and women. Social History Social History Type Response Smoking Status 10 or more cigarette s (1/2 pack or more)/day in last 30 days; Type: Cigarettes; Tobacco use status 30 days prior to admission 5 or more cigarettes avg volume per day (=>1/4 pack) entered on: 07/17/22 Sex Male Patient Care team information Care Team Related Persons Name: MARCO ANTONIO RENTERIAYLA Address: Home
[2022-12-01] MEDS: sodium chloride 0.9% 1,000 ML 999 ML IV (14:48)
[2022-12-01 16:52] VITALS: BP 145/84; PULSE 94; O2SAT 99
[2022-12-10 11:00] VITALS: BP 120/74; PULSE 74; RESP 17; TEMP 36.6; O2SAT 98
[2022-12-10] MEDS: sodium chloride 0.9% 1,000 ML 999 ML IV (11:08)
[2022-12-10 11:29] LABS: Albumin Level 4.3 g/dL (3.5-5.2); Blood Urea Nitrogen 24 mg/dL (6-20); Calcium 9.5 mg/dL (8.5-10.5); Carbon Dioxide 24 mmol/L (22-29); Chloride 102 mmol/L (98-107); Glomerular Filtration Rate 31.2 mL/min (90-130); Glucose 90 mg/dL (65-115); Phosphorus 3.7 mg/dL (2.5-4.5); Sodium 136 mmol/L (136-145)
[2022-12-10 12:20] VITALS: BP 124/68; PULSE 74; RESP 18; TEMP 36.6; O2SAT 98
[2022-12-16] MEDS: sodium chloride 0.9% 1,000 ML 999 ML IV (15:34)
[2022-12-16 16:56] VITALS: BP 156/88; PULSE 80; RESP 18; TEMP 36.6; O2SAT 98
== END 2022-12-16 23:59 | disposition home or self-care (01) ==
PROVIDERS: Registered Nurse; PCP Family Medicine; Visit Provider Family Medicine
DX: E86.0 Dehydration (principal); N18.9 Chronic kidney disease, unspecified
CPT/HCPCS: 80069; 96360; 96365; J7030

== ENCOUNTER → 2022-12-22 09:22 | Outpatient (BNVA) | payer MEDICARE, MEDICAID, SELFPAY | PROVIDERS: PCP Family Medicine; Visit Provider Podiatrist Foot & Ankle Surgery | DX: B35.1 Tinea unguium (principal); I73.9 Peripheral vascular disease, unspecified; G62.9 Polyneuropathy, unspecified; E11.42 Type 2 diabetes mellitus with diabetic polyneuropathy | CPT/HCPCS: 11721 ==

== ENCOUNTER 2023-01-15 08:32 | Oncology outpatient (recurring) (ONCR) | payer MEDICARE, MEDICAID, SELFPAY ==
[2022-12-24] MEDS: sodium chloride 0.9% 1,000 ML 999 ML IV (13:10)
[2022-12-24 13:20] VITALS: BP 154/74; PULSE 78; RESP 18; TEMP 36.6; O2SAT 98
[2022-12-24 14:30] VITALS: BP 152/89; PULSE 98; RESP 18; TEMP 36.6; O2SAT 98
[2022-12-31 14:15] VITALS: BMI 24.1
[2022-12-31] MEDS: sodium chloride 0.9% 1,000 ML 999 ML IV (14:33)
[2022-12-31 14:34] VITALS: BP 122/79; PULSE 96; RESP 17; TEMP 37.1; O2SAT 95
[2022-12-31 15:20] VITALS: BP 110/70; PULSE 73; RESP 17; TEMP 36.5; O2SAT 94
[2023-01-07] MEDS: sodium chloride 0.9% 1,000 ML 999 ML IV (14:54)
[2023-01-07 16:09] VITALS: BP 137/92; PULSE 96; O2SAT 100
[2023-01-15 10:48] VITALS: BP 114/80; PULSE 91; RESP 14; O2SAT 99
[2023-01-15] MEDS: sodium chloride 0.9% 1,000 ML 999 ML IV (11:00)
== END 2023-01-15 23:59 | disposition home or self-care (01) ==
PROVIDERS: PCP Family Medicine; Visit Provider Family Medicine
DX: E86.0 Dehydration (principal); N18.9 Chronic kidney disease, unspecified
CPT/HCPCS: 96360; J7030

== ENCOUNTER 2023-01-29 11:44 | Outpatient (CLI) | payer MEDICARE, MEDICAID, SELFPAY | END 2023-01-29 11:45 | disposition home or self-care (01) | PROVIDERS: PCP Family Medicine; Visit Provider Student in an Organized Health Care Education/Training Program | DX: A31.0 Pulmonary mycobacterial infection (principal) | CPT/HCPCS: 87015; 87116; 87206; 87801 ==

== ENCOUNTER → 2023-02-10 14:24 | Outpatient (BNVA) | payer MEDICARE, MEDICAID, SELFPAY | PROVIDERS: PCP Family Medicine; Visit Provider Nurse Practitioner Family | DX: L40.0 Psoriasis vulgaris (principal); L81.4 Other melanin hyperpigmentation; D22.4 Melanocytic nevi of scalp and neck; L40.59 Other psoriatic arthropathy | CPT/HCPCS: 99214 ==

== ENCOUNTER 2023-02-11 14:00 | Oncology outpatient (recurring) (ONCR) | payer MEDICARE, MEDICAID, SELFPAY ==
[2023-01-21 14:17] VITALS: BP 148/83; PULSE 85; RESP 19; TEMP 36.3; O2SAT 99
[2023-01-21] MEDS: sodium chloride 0.9% 1,000 ML 999 ML IV (14:27)
[2023-01-21 15:14] VITALS: BP 137/84; PULSE 89; RESP 17; TEMP 36.4; O2SAT 99
[2023-01-28] MEDS: sodium chloride 0.9% 1,000 ML 999 ML IV (14:35)
[2023-01-28 14:49] VITALS: BP 119/78; PULSE 74; RESP 17; TEMP 36.6; O2SAT 98
[2023-02-04] MEDS: sodium chloride 0.9% 1,000 ML 999 ML IV (14:22)
[2023-02-04 14:30] VITALS: BP 132/84; PULSE 103; RESP 18; TEMP 36.4; O2SAT 98
[2023-02-04 15:45] VITALS: BP 136/90; PULSE 90; RESP 18; TEMP 36.4; O2SAT 98
[2023-02-11 14:07] VITALS: BMI 24.1
[2023-02-11 14:20] VITALS: BP 146/88; PULSE 95; RESP 16; TEMP 37.2; O2SAT 99
[2023-02-11] MEDS: sodium chloride 0.9% 1,000 ML 999 ML IV (14:30)
[2023-02-11 15:52] VITALS: BP 156/100; PULSE 97; RESP 17; TEMP 36.9; O2SAT 99
== END 2023-02-15 23:59 | disposition home or self-care (01) ==
PROVIDERS: PCP Family Medicine; Visit Provider Family Medicine
DX: E86.0 Dehydration (principal); N18.9 Chronic kidney disease, unspecified; Z53.9 Procedure and treatment not carried out, unspecified reason
CPT/HCPCS: 96360; J7030

== ENCOUNTER → 2023-02-19 15:20 | Outpatient (BNVA) | payer MEDICARE, MEDICAID, SELFPAY | PROVIDERS: PCP Family Medicine; Visit Provider Family Medicine | DX: E78.5 Hyperlipidemia, unspecified (principal); F32.A Depression, unspecified; F41.9 Anxiety disorder, unspecified; N40.0 Benign prostatic hyperplasia without lower urinary tract symptoms; E11.9 Type 2 diabetes mellitus without complications; Z11.1 Encounter for screening for respiratory tuberculosis; Z79.899 Other long term (current) drug therapy | CPT/HCPCS: 80053; 80061; 83036; 84439; 84443; 85025; 86480 ==

== ENCOUNTER → 2023-03-12 11:29 | Outpatient (BNVA) | payer MEDICARE, MEDICAID, SELFPAY | PROVIDERS: Visit Provider Internal Medicine Rheumatology | DX: M35.3 Polymyalgia rheumatica (principal); R76.8 Other specified abnormal immunological findings in serum; M05.9 Rheumatoid arthritis with rheumatoid factor, unspecified; Z71.85 Encounter for immunization safety counseling; Z79.899 Other long term (current) drug therapy; A31.0 Pulmonary mycobacterial infection | CPT/HCPCS: 99214 ==

== ENCOUNTER 2023-03-12 15:00 | Oncology outpatient (recurring) (ONCR) | payer MEDICARE, MEDICAID, SELFPAY ==
[2023-02-18 14:30] VITALS: BP 129/88; PULSE 91; RESP 18; TEMP 36.1; O2SAT 98
[2023-02-18] MEDS: sodium chloride 0.9% 1,000 ML 999 ML IV (14:59)
[2023-03-12] MEDS: sodium chloride 0.9% 1,000 ML 999 ML IV (15:36)
== END 2023-03-18 23:59 | disposition home or self-care (01) ==
PROVIDERS: PCP Family Medicine; Visit Provider Family Medicine
DX: E86.0 Dehydration (principal); N18.9 Chronic kidney disease, unspecified; Z53.9 Procedure and treatment not carried out, unspecified reason
CPT/HCPCS: 96360; 96365; J7030

== ENCOUNTER → 2023-03-19 15:09 | Outpatient (BNVA) | payer MEDICARE, MEDICAID, SELFPAY | PROVIDERS: PCP Family Medicine; Visit Provider Podiatrist Foot & Ankle Surgery | DX: B35.1 Tinea unguium (principal); I73.9 Peripheral vascular disease, unspecified; G62.9 Polyneuropathy, unspecified; E11.42 Type 2 diabetes mellitus with diabetic polyneuropathy | CPT/HCPCS: 11721 ==

== ENCOUNTER 2023-03-25 15:17 | Outpatient (CLI) | payer MEDICARE, MEDICAID, SELFPAY ==
--- NOTE | 2023-03-25 15:30 | CT_ITS ---
WS: [id number] CT HEAD TECHNIQUE: Noncontrast CT of the head obtained from the skullbase to the vertex. CLINICAL INFORMATION: G93.0 - Cerebral cysts COMPARISON: CT 2020 and MRI 2017 DLP: 1037.[address] scans at [facility] use at least one of these dose optimization techniques: automated e xposure control; mA and/or kV adjustment per patient size (includes targeted exams where dose is matc hed to clinical indication); or iterative reconstruction. FINDINGS: No evidence of intracranial hemorrhage or mass effect. Ventricular system and basal cisterns are sewell nt. Mild small vessel changes with moderate parenchymal volume loss. 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 No extra-axial fluid collections. No evidence of mass or mass effect. Mild mucosal thickening in the paranasal sinuses. Fluid within the RIGHT maxillary sinus. Mastoid air cells are well aerated. Normal posterior nasopharynx. Postoperative changes in the anterior paranasa l soft tissues IMPRESSION: 1. No evidence of intracranial hemorrhage or mass effect. 2. 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 Mild small vessel changes. Moderate parenchymal volume loss. 4. No acute intracranial findings.
== END 2023-03-25 15:18 | disposition home or self-care (01) ==
LOC: RAD 15:17
PROVIDERS: PCP Family Medicine; Visit Provider Nurse Practitioner Family
DX: G93.0 Cerebral cysts (principal); E11.9 Type 2 diabetes mellitus without complications; Q44.6 Cystic disease of liver
CPT/HCPCS: 70450

== ENCOUNTER 2023-04-07 13:43 | Outpatient (CLI) | payer MEDICARE, MEDICAID, SELFPAY ==
--- NOTE | 2023-04-07 15:03 | OP.DCCON ---
Reason for Visit: 92620 E22.2 Q61.3 M32.9 E8809 E11.9 Person Interviewed: Patient Medical History, Labs and Background: Arelis is battling alpha gal, CKD stg 3b, COPD, fibromyalgia, lupus, RA, DM2 among other co morbidities and has smoked 2 ppd x 30 years. Height: 6 ft Weight: 173 lb BMI: 23.5 kg/m2 Concerns and Goals: He want help with what to eat. Sleep Hygiene: Arelis has severe sleep apnea that leaves his mouth really dry. Physical Activity: Because of COPD he said he is not active and just sits around. GI Symptoms: Nausea, Vomiting and Diarrhea Other Feeding Issues: His symptoms of vomiting and diarrhea resolved when he stopped eating red meat and pork and their by products. Food Allergies and Sensitivities: Alpha Gal - milk and cheese and beef/pork/their by products. 24 Hour Recall: Breakfast Time: Wakes at 8am Just coffee Snack Time: Lunch Time: noon chicken TV dinner Snack Time: Dinner Time: 5-6pm chicken or fish TV dinner Snack Time: Little Yumi snack cakes Eating Out: Arelis said he doesn't eat out that much. Soda vs Milk vs Water: He probably drinks the equivalent of 4-6 cups coffee/day and also drinks 4-6 bottles of water and Gatorades with zero sugar. Additional Comments: Arelis was honest and said he doesn't like to cook, but is also at his wits end trying to find a variety of things to eat. Recommendations: Assessment: Arelis is motivated to find new foods to eat, and is somewhat confused about how to follow a diet that accommodates his low potassium, alpha gal allergy, CKD stg 3b, and DM2 diagnoses. He said that he is hungry a lot and is tired of chicken patties and fish sticks which is his go-to foods - he wants something he can throw in the microwave. Nutrition Diagnosis: Inadequate oral intake r/t several co-morbidities AEB Pt stating he is hungry and needs more ideas of what he can eat. Intervention: The diabetic diet was the foundation we started with so I gave him a MyPlate handout of the diabetic diet, as well as 5 days or meal plans to give ideas of how to balance carbs, proteins and fats. Then, we talked about substitutions that accommodated both low potassium and alpha gal friendly foods. I emailed a link to the [employer] which allows you to scan a food to determine if it is alpha gal friendly. Since he asked about a recipe for gravy I also found one and included that, as well as a recipe for smoothies. Before the interview he said he was hungry because he had not eaten all day, so I recommended trying to eat 3-4 times/day instead of two. One of those could be a smoothie, so I also included a recipe for that in the email. We continued to discuss alternatives like ground chicken or turkey, beans, boiled eggs, peanut butter, and dried fruit and nuts. He had recently bought vegan cheese and butter and was trying to adjust. Since he likes spreading avocado on toast I encouraged that as a snack or light breakfast. Monitoring and Evaluation: Arelis was given a handout with some things to try and at the bottom is my email and office number for any later questions or concerns. Coding Level of Care Code Nutrition/Individ/Init 60 min Time Spent (min) 60
== END 2023-04-07 13:44 | disposition home or self-care (01) ==
LOC: DIET 13:43
PROVIDERS: PCP Family Medicine; Visit Provider Nurse Practitioner Family
DX: Z71.3 Dietary counseling and surveillance (principal); Z91.014 Allergy to mammalian meats; E11.22 Type 2 diabetes mellitus with diabetic chronic kidney disease; N18.32 Chronic kidney disease, stage 3b; E22.2 Syndrome of inappropriate secretion of antidiuretic hormone; I25.10 Atherosclerotic heart disease of native coronary artery without angina pectoris; Q44.6 Cystic disease of liver; Q61.3 Polycystic kidney, unspecified; M32.9 Systemic lupus erythematosus, unspecified; M79.7 Fibromyalgia; M06.9 Rheumatoid arthritis, unspecified; J44.9 Chronic obstructive pulmonary disease, unspecified; F17.210 Nicotine dependence, cigarettes, uncomplicated; Z68.23 Body mass index [BMI] 23.0-23.9, adult
CPT/HCPCS: 97802

== ENCOUNTER 2023-04-13 13:00 | Outpatient (CLI) | payer MEDICARE, MEDICAID, SELFPAY ==
[2023-04-13 13:29] LABS: Basophils # 0.1 10^3/uL (0.0-0.1); Basophils % 0.6 %; Eosinophils # 0.3 10^3/uL (0.0-0.8); Eosinophils % 2.3 %; Hematocrit 38.3 % (37-53); Lymphocytes # 1.2 10^3/uL (0.8-4.8); Mean Corpuscular HGB Conc 32.1 g/dL (30-55); Mean Corpuscular Hemoglobin 30.9 pg (27-33); Mean Corpuscular Volume 96.2 fl (82-101); Mean Platelet Volume 8.7 fL (7.4-10.4); Neutrophils # 9.69 10^3/uL (1.8-7.7); Neutrophils % 78.6 %; Nucleated Red Blood Cells % 0 %; Platelet Count 356 10^3/cmm (157-399); Red Blood Count 3.98 10^6/uL (3.85-5.65); Red Cell Distribution Width 14.6 % (12.1-15.1); White Blood Count 12.32 10^3/uL (3.29-11.43)
[2023-04-13 13:46] LABS: Anion Gap 15.1 (5-19); Blood Urea Nitrogen 32 mg/dL (6-20); Calcium 9.4 mg/dL (8.5-10.5); Carbon Dioxide 21 mmol/L (22-29); Chloride 106 mmol/L (98-107); Glomerular Filtration Rate 26.8 mL/min (90-130); Glucose 91 mg/dL (65-115); Phosphorus 3.6 mg/dL (2.5-4.5); Potassium 4.1 mmol/L (3.5-5.1); Sodium 138 mmol/L (136-145)
[2023-04-13 13:53] LABS: Calcium 9.3 mg/dL (8.5-10.5)
[2023-04-13 14:00] LABS: Parathyroid Hormone 65.4 pg/mL (15-65)
[2023-04-13 14:02] LABS: 25 Hydroxy Vitamin D 63 ng/mL (30-100)
== END 2023-04-13 13:01 | disposition home or self-care (01) ==
LOC: LAB 13:04
PROVIDERS: PCP Family Medicine; Visit Provider Internal Medicine Nephrology
DX: E11.22 Type 2 diabetes mellitus with diabetic chronic kidney disease (principal); I12.9 Hypertensive chronic kidney disease with stage 1 through stage 4 chronic kidney disease, or unspecified chronic kidney disease; N18.32 Chronic kidney disease, stage 3b; N25.0 Renal osteodystrophy
CPT/HCPCS: 36415; 80069; 82306; 82310; 83970; 85025

== ENCOUNTER → 2023-04-27 13:39 | Outpatient (BNVA) | payer MEDICARE, MEDICAID, SELFPAY | PROVIDERS: PCP Family Medicine; Visit Provider Internal Medicine Cardiovascular Disease | DX: I25.110 Atherosclerotic heart disease of native coronary artery with unstable angina pectoris (principal); E78.5 Hyperlipidemia, unspecified; F17.210 Nicotine dependence, cigarettes, uncomplicated; I11.0 Hypertensive heart disease with heart failure; I50.9 Heart failure, unspecified; E11.51 Type 2 diabetes mellitus with diabetic peripheral angiopathy without gangrene | CPT/HCPCS: 99214 ==

== ENCOUNTER 2023-04-30 07:50 | Outpatient (CLI) | payer MEDICARE, MEDICAID, SELFPAY ==
--- NOTE | 2023-04-30 08:00 | USCV_ITS ---
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 Mild to moderate diffuse plaque in the superficial femoral arteries bilaterally Resting AGAPITO 0.9 bilaterally CONCLUSIONS 1. Slightly diminished resting AGAPITO bilaterally suggesting mild peripheral artery disease. 2. Mild to moderate diffuse plaque in the left iliac and bilateral superficial femoral arteries Dr Sarah Kay MD [facility] (Electronically Signed) Final Date: 30 April 2023 21:45 S
== END 2023-04-30 07:51 | disposition home or self-care (01) ==
LOC: RAD 07:51
PROVIDERS: PCP Family Medicine; Visit Provider Internal Medicine Cardiovascular Disease
DX: I70.203 Unspecified atherosclerosis of native arteries of extremities, bilateral legs (principal)
CPT/HCPCS: 93925

== ENCOUNTER 2023-04-30 09:16 | Outpatient (CLI) | payer MEDICARE, MEDICAID, SELFPAY ==
[2023-04-30 10:23] LABS: Basophils # 0.1 10^3/uL (0.0-0.1); Basophils % 0.8 %; Eosinophils # 0.5 10^3/uL (0.0-0.8); Eosinophils % 4.6 %; Hematocrit 38.2 % (37-53); Lymphocytes # 1.2 10^3/uL (0.8-4.8); Lymphocytes % 10.1 %; Mean Corpuscular HGB Conc 31.4 g/dL (30-55); Mean Corpuscular Hemoglobin 30.8 pg (27-33); Mean Corpuscular Volume 98.2 fl (82-101); Mean Platelet Volume 9.2 fL (7.4-10.4); Monocytes # 0.7 10^3/uL (0.2-0.9); Neutrophils # 9.09 10^3/uL (1.8-7.7); Neutrophils % 78.1 %; Nucleated Red Blood Cells % 0 %; Platelet Count 340 10^3/cmm (157-399); Red Blood Count 3.89 10^6/uL (3.85-5.65); Red Cell Distribution Width 14.4 % (12.1-15.1); White Blood Count 11.65 10^3/uL (3.29-11.43)
[2023-04-30 10:53] LABS: Creatinine Urine, Random 73 mg/dL (39-259); Microalbumin Random Urine 6 ug/dL (0-20)
[2023-04-30 10:55] LABS: Alanine Aminotransferase 9 U/L (0-41); Alkaline Phosphatase 57 U/L (40-130); Aspartate Amino Transferase 12 U/L (0-40); Chol HDL Ratio 4.49 mg/dL (1.0-5.00); Cholesterol 175 mg/dL (0-200); Globulin 2.3 g/dL (1.3-4.6); HDL Cholesterol 39 mg/dL (60-100); LDL Cholesterol Calculated 107 mg/dL (50-129); LDL HDL Ratio 2.74 RATIO (0.00-3.22); Total Bilirubin 0.2 mg/dL (0.15-1.2); Total Protein 6.3 g/dL (6.6-8.7); Triglycerides 145 mg/dL (0-150)
[2023-04-30 10:55] LABS: Microalbum Creatinine Ratio Ur 82 mg/dL (0-20)
[2023-04-30 10:56] LABS: Anion Gap 15.4 (5-19); Blood Urea Nitrogen 38 mg/dL (6-20); Calcium 8.7 mg/dL (8.5-10.5); Carbon Dioxide 21 mmol/L (22-29); Chloride 108 mmol/L (98-107); Glomerular Filtration Rate 26.8 mL/min (90-130); Glucose 79 mg/dL (65-115); Phosphorus 3.5 mg/dL (2.5-4.5); Potassium 4.4 mmol/L (3.5-5.1); Sodium 140 mmol/L (136-145)
[2023-04-30 10:57] LABS: Calcium 8.8 mg/dL (8.5-10.5)
[2023-04-30 11:25] LABS: Parathyroid Hormone 73.3 pg/mL (15-65)
== END 2023-04-30 09:17 | disposition home or self-care (01) ==
LOC: LAB 09:21
PROVIDERS: Absent Provider Registered Nurse; PCP Family Medicine; Visit Provider Internal Medicine Cardiovascular Disease
DX: E78.5 Hyperlipidemia, unspecified (principal); N18.2 Chronic kidney disease, stage 2 (mild)
CPT/HCPCS: 36415; 80061; 80069; 80076; 82044; 82310; 83970; 85025

== ENCOUNTER 2023-05-13 12:01 | Outpatient (CLI) | payer MEDICARE, MEDICAID, SELFPAY ==
--- NOTE | 2023-05-13 13:00 | US_ITS ---
WS: [id number] URINARY BLADDER ULTRASOUND HISTORY: BLADDER OUTLET COMPARISON: None available. Urinary bladder is well distended. No intraluminal filling defect. No free fluid adjacent to the urin jemima bladder. Bilateral ureteral jets are readily identified filling the bladder. Prostate gland is en larged and mildly heterogeneous measuring 4.9 x 3.4 x 5.3 cm. Bladder Wall Thickness: 0.3 cm. Bladder Prevoid: 7.8 cm x 9.2 cm x 8.5 cm. Prevoid volume: 319.3ml. Bladder Postvoid: 7.6 cm x 8.2 cm x 8.5 cm. Postvoid volume: 277.7 ml. IMPRESSION: 1. Significant post void residual remains in the bladder after voiding. 2. Mildly heterogeneous prostate gland.
--- NOTE | 2023-05-13 14:00 | CTR_ITS ---
PROCEDURE INFORMATION: Exam: CT Chest Without Contrast; Diagnostic Exam date and time: 05/13/2023 12:24 PM Age: 57 years old Clinical indication: Device placement; Other: Pulmonary mac; Prior surgery; Surgery date: 6+ months; Surgery type: Inspire implanted; Additional info: Follow up mac, follow up pulmonary mac TECHNIQUE: Imaging protocol: Diagnostic computed tomography of the chest without contrast. Radiation optimization: All CT scans at this facility use at least one of these dose optimization techniques: automated exposure control; mA and/or kV adjustment per patient size (includes targeted exams where dose is matched to clinical indication); or iterative reconstruction. COMPARISON: CT chest wo con [id number] 11/20/2022 3:57 PM RADIATION DOSE METRICS: Total DLP (mGy-cm): 389.27 FINDINGS: Tubes, catheters and devices: Electronic device implanted in the anterior right chest, new compared to 11/20/2022. Lungs: Stable appearance of centrilobular emphysematous changes throughout the lungs, most prominent in the apices with biapical scarring. Stable appearance of cavitating lesion in the left upper lung, measuring up to 7.0 cm, with a thickened peripheral rind, consistent with reported history of mycobacterial disease. Pleural spaces: No pleural effusion. No pneumothorax. Heart: Heart is normal in size. No pericardial effusion. Coronary arteries: Coronary artery calcifications. Lymph nodes: No suspicious lymphadenopathy. Vasculature: Mild scattered calcific disease of the aorta and its major branches. Liver: Partially imaged liver demonstrates numerous small hepatic cysts throughout the liver. Gallbladder and bile ducts: Status post cholecystectomy. Kidneys and ureters: Partially imaged polycystic kidneys. Bones/joints: Stable chronic fracture deformity of the right 8th rib. Soft tissues: Visualized superficial soft tissues are within normal limits. CT/CT chest wo con [id number] IMPRESSION: 1. Stable appearance of centrilobular emphysematous changes throughout the lungs, most prominent in the apices with biapical scarring. 2. Stable appearance of cavitating lesion in the left upper lung, measuring up to 7.0 cm, with a thickened peripheral rind, consistent with reported history of mycobacterial disease. COMMENTS: The presence of pulmonary emphysema on CT is an independent risk factor for lung cancer. In the absence of a history or active diagnosis of lung cancer, it is recommended that this patient with emphysema be evaluated for enrollment in a low dose CT lung cancer screening program.
== END 2023-05-13 12:02 | disposition home or self-care (01) ==
LOC: RAD 12:01
PROVIDERS: PCP Family Medicine; Visit Provider Registered Nurse
DX: A31.0 Pulmonary mycobacterial infection (principal); J43.9 Emphysema, unspecified; R91.1 Solitary pulmonary nodule; N32.0 Bladder-neck obstruction
CPT/HCPCS: 71250; 76857

== ENCOUNTER 2023-05-28 12:45 | Outpatient (CLI) | payer MEDICARE, MEDICAID, SELFPAY | END 2023-05-28 12:46 | disposition home or self-care (01) | LOC: LAB 12:45 | PROVIDERS: PCP Nurse Practitioner Family; Visit Provider Student in an Organized Health Care Education/Training Program | DX: A31.0 Pulmonary mycobacterial infection (principal) | CPT/HCPCS: 87015; 87116; 87206; 87801 ==

== ENCOUNTER → 2023-06-01 11:19 | Outpatient (BNVA) | payer MEDICARE, MEDICAID, SELFPAY | PROVIDERS: PCP Nurse Practitioner Family; Visit Provider Podiatrist Foot & Ankle Surgery | DX: B35.1 Tinea unguium (principal); Q82.8 Other specified congenital malformations of skin; I73.9 Peripheral vascular disease, unspecified; E11.9 Type 2 diabetes mellitus without complications; G62.9 Polyneuropathy, unspecified; E11.42 Type 2 diabetes mellitus with diabetic polyneuropathy | CPT/HCPCS: 11055; 11721 ==

== ENCOUNTER 2023-06-11 13:00 | Oncology outpatient (recurring) (ONCR) | payer MEDICARE, MEDICAID, SELFPAY ==
[2023-05-28 11:04] VITALS: BP 129/85; PULSE 116; RESP 18; TEMP 36.7; O2SAT 92
[2023-05-28] MEDS: sodium chloride 0.9% 1,000 ML 999 ML IV (11:10)
[2023-06-04 10:54] VITALS: BP 145/85; PULSE 119; RESP 18; TEMP 37.1; O2SAT 96
[2023-06-04] MEDS: sodium chloride 0.9% 1,000 ML 999 ML IV (11:01)
[2023-06-04 12:13] VITALS: PULSE 105; O2SAT 96
[2023-06-11] MEDS: sodium chloride 0.9% 1,000 ML 999 ML IV (13:28)
[2023-06-11 14:25] VITALS: BP 130/75; PULSE 101; RESP 16; TEMP 36.9; O2SAT 96
== END 2023-06-16 23:59 | disposition home or self-care (01) ==
PROVIDERS: PCP Family Medicine; Visit Provider Family Medicine
DX: Z53.9 Procedure and treatment not carried out, unspecified reason (principal); Z91.89 Other specified personal risk factors, not elsewhere classified
CPT/HCPCS: 11721; 96360; 96365; J7030

== ENCOUNTER 2023-07-16 14:00 | Oncology outpatient (recurring) (ONCR) | payer MEDICARE, MEDICAID, SELFPAY ==
[2023-06-18] MEDS: sodium chloride 0.9% 1,000 ML 999 ML IV (15:30)
[2023-06-18 16:27] VITALS: BP 148/78; PULSE 68; RESP 16; TEMP 36.3
[2023-06-23] MEDS: sodium chloride 0.9% 1,000 ML 999 ML IV (15:05)
[2023-06-23 15:20] VITALS: BP 128/68; PULSE 88; RESP 16; TEMP 36.4; O2SAT 94
[2023-06-23 16:28] VITALS: BP 152/83; PULSE 93; RESP 18; TEMP 37.2; O2SAT 98
[2023-07-02] MEDS: sodium chloride 0.9% 1,000 ML 999 ML IV (15:08)
[2023-07-02 16:15] VITALS: BP 124/78; PULSE 93; RESP 17; TEMP 36.6; O2SAT 93
[2023-07-09 15:09] VITALS: BP 101/70; PULSE 128; RESP 18; TEMP 36.9; O2SAT 95
[2023-07-09] MEDS: sodium chloride 0.9% 1,000 ML 999 ML IV (15:14)
[2023-07-09 16:16] VITALS: PULSE 107; RESP 18; O2SAT 98
[2023-07-16 14:23] VITALS: BP 120/84; PULSE 114; RESP 18; TEMP 36.7; O2SAT 97
[2023-07-16] MEDS: sodium chloride 0.9% 1,000 ML 999 ML IV (14:27)
== END 2023-07-17 23:59 | disposition home or self-care (01) ==
PROVIDERS: PCP Nurse Practitioner Family; Visit Provider Family Medicine
DX: Z91.89 Other specified personal risk factors, not elsewhere classified (principal); Z53.9 Procedure and treatment not carried out, unspecified reason
CPT/HCPCS: 96360; 96365; 99215; J7030

== ENCOUNTER 2023-07-21 00:40 | Emergency (ER) | payer MEDICARE, MEDICAID, SELFPAY ==
--- NOTE | 2023-07-21 00:55 | XRR_ITS ---
PROCEDURE INFORMATION: Exam: XR Abdomen Exam date and time: 07/21/2023 1:11 AM Age: 57 years old Clinical indication: Abdominal tenderness; Prior surgery; Surgery date: 6+ months; Surgery type: Gb, hernia; Additional info: Abdominal pain TECHNIQUE: Imaging protocol: Radiologic exam of the abdomen. Views: 2 Views. Upright and supine views. COMPARISON: CT chest wo con [id number] 05/13/2023 12:24 PM FINDINGS: Tubes, catheters and devices: Stable right pacemaker/chest recorder/pain management device. 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 Gastrointestinal tract: Normal. No bowel dilation. Intraperitoneal space: Normal. No free air. Bones/joints: Interval appearance of healed right posterolateral lower rib. XR/XR acute abdomen series [id number] IMPRESSION: 1. 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 2. Unremarkable abdomen.
--- NOTE | 2023-07-21 00:56 | ED_ITS ---
HPI - Abdominal Pain 2 General: Chief Complaint: Nausea/Vomiting/Diarrhea Stated Complaint: N/V, headache Time Seen by Provider: 07/21/23 00:48 History of Present Illness: 57-year-old man with a history of psoria tic arthritis, tobacco abuse, alpha gal, fibromyalgia, type 2 diabetes, and fibromyalgia who presents to the emergency room with nausea vomiting and diarrhea for the past 4 days. He says he has had a headache and some neck pain. No nuchal rigidity. No focal abdominal pain. No chest pain. No altered mental status. No known fevers. Review of Systems 2 Narrative: General: Alert, no acute distress. Skin: Warm, dry. Head: Normocephalic, atraumatic. Neck: Supple, trachea midline. Eye: Extraocular movements are intact. Ears, nose, mouth and throat: mucosa moist. Cardiovascular: Regular, Normal peripheral perfusion. Respiratory: Lungs are clear to auscultation, respirations are non-labored, breath sounds are equal, Symmetrical chest wall expansion. Gastrointestinal: Soft, Nontender, Non distended, Normal bowel sounds. Musculoskeletal: Normal ROM, no deformity. Neurological: Alert and oriented, No focal neurological deficit observed. Psychiatric: Cooperative, appropriate mood & affect. [facility] ED 2 PFSH: Medical History (Updated 07/21/23 @ 02:57 by Tayler Tidwell MD) Psoriatic arthritis Anxiety Severe tobacco use disorder Alpha galactosidase deficiency Mycobacterium avium complex Immunization counseling High risk medication use Rheumatoid arthritis Insomnia Hiatal hernia Gastritis and duodenitis Acid reflux Diverticulosis PCK (polycystic kidney disease) Positive ANASTASIA (antinuclear antibody) Polymyalgia rheumatica CHF (congestive heart failure) Adrenal insufficiency Chronic use of steroids Acute kidney injury Sepsis Decreased GFR Right forearm injury Elevated platelet count COPD (chronic obstructive pulmonary disease) Heart disease Type 2 diabetes mellitus Lupus Fibromyalgia Surgical History History of colonoscopy with polypectomy 2011 Status post hernia repair Status post cholecystectomy Status post angioplasty with stent Dr Kay 2014 Family History Father Diabetes CAD (coronary artery disease) Lung disease Family/Other Dementia Lung disease Sister Suicide Other Autoimmune disease Chronic kidney disease (CKD) Hyperlipidemia Hypertension Thyroid disease Denies family history of Liver disease Aneurysm Clotting disorder Psychiatric illness Bleeding disorder Cancer Stroke Social History Smoking and tobacco/nicotine status: never used tobacco/nicotine Second hand smoke exposure: No Alcohol intake: former Substance/Drug Use: never Lives independently: Yes Household members: none Marital status: Current occupational status: disabled Do you think of yourself as: Straight/Heterosexual Current gender identity: Male Physical Exam 2 Narrative: EXAM NARRATIVE: General: Alert, no acute distress. Skin: Warm, dry. Head: Normocephalic, atraumatic. Neck: Supple, trachea midline. Eye: Extraocular movements are intact. Ears, nose, mouth and throat: Tacky oral mucosa Cardiovascular: Regular, Normal peripheral perfusion. Respiratory: Lungs are clear to auscultation, respirations are non-labored, breath sounds are equal, Symmetrical chest wall expansion. Gastrointestinal: Soft, Nontender, Non distended, Normal bowel sounds. Musculoskeletal: Normal ROM, no deformity. Neurological: Alert and oriented, No focal neurological deficit observed. Psychiatric: Cooperative, appropriate mood & affect. Course 2 Vital Signs: Vital signs: Vital Signs Temperature 98.0 F 07/21/23 00:59 Pulse Rate 100 07/21/23 02:35 Respiratory Rate 18 07/21/23 02:35 Blood Pressure 159/100 07/21/23 02:35 Pulse Oximetry 97 07/21/23 02:35 Oxygen Delivery Me thod Room Air 07/21/23 00:59 MDM - Abdominal Pain Medical Decision Making Medical decision making: Differential diagnosis for this patient with nausea and vomiting including but not limited to and based on the above HPI, review of systems and physical exam: Urinary tract infection. Appendicitis. Cholecystis. colitis. small bowel obstruction. crohn's flare. pancreatitis. gastritis. peptic ulcer. cyclic vomiting. Viral illness. Influenza. COVID. - Workup - labwork and imaging ordered to evaluate, rule in and rule out above pathologies. Acute abdominal series: chest x-ray: No acute process. No obvious infiltrates. No pneumothorax. No cardiomegaly. This was reviewed and interpreted by myself the emergency room physician Abdomen x-ray: Nonspecific bowel gas pattern. No evidence of free air or obstruction. This was reviewed and interpreted by myself the emergency room physician. Lab Review: Laboratory results were reviewed and interpreted by myself the emergency room physician. White count is 12. Hemoglobin is 12. BUN and creatinine are 20 and 2.9. His creatinine is slightly elevated over his baseline at 2.9 versus 2.3-2.5. Urinalysis clear I reviewed the patient's medical record. Reexamination: Patient appears somewhat improved from previous. No increased work of breathing. No altered mental status. No focal motor deficits. He had no further vomiting while he is been here. Assessment and plan: Gastroenteritis Acute on chronic renal insufficiency Dehydration Headache ?Patient is somewhat improved. He is received 2 L normal saline bolus. IV morphine and IV Zofran. IV Decadron. - Discharged home - Discussed plan with patient. Answered any questions. - Evaluation and treatment of this problem were appropriate in the emergency setting. Lab Data 07/21/23 00:45 07/21/23 00:45 Labs/Radiology: Laboratory Results WBC 12.07 10^3/uL (3.29-11.43) H 07/21/23 00:45 RBC 4.21 10^6/uL (3.85-5.65) 07/21/23 00:45 Hgb 12.60 g/dL (11.27-16.99) 07/21/23 00:45 Hct 37.5 % (37-53) 07/21/23 00:45 MCV 89.1 fl (82-101) 07/21/23 00:45 MCH 29.9 pg (27-33) 07/21/23 00:45 MCHC 33.6 g/dL (30-55) 07/21/23 00:45 RDW 14.3 % (12.1-15.1) 07/21/23 00:45 Plt Count 520 10^3/cmm (157-399) H 07/21/23 00:45 MPV 9.2 fL (7.4-10.4) 07/21/23 00:45 Neut % (Auto) 75.2 % 07/21/23 00:45 Lymph % (Auto) 11.5 % 07/21/23 00:45 [place] % (Auto) 11.2 % 07/21/23 00:45 Eos % (Auto) 1.2 % 07/21/23 00:45 Baso % (Auto) 0.7 % 07/21/23 00:45 Neut # (Auto) 9.07 10^3/uL (1.8-7.7) H 07/21/23 00:45 Lymph # (Auto) 1.4 10^3/uL (0.8-4.8) 07/21/23 00:45 [place] # (Auto) 1.4 10^3/uL (0.2-0.9) H 07/21/23 00:45 Eos # (Auto) 0.1 10^3/uL (0.0-0.8) 07/21/23 00:45 Baso # (Auto) 0.1 10^3/uL (0.0-0.1) 07/21/23 00:45 Nucleated RBC % (auto) 0 % 07/21/23 00:45 Nucleated RBCs # 0.0 /100WBC 07/21/23 00:45 Sodium 135 mmol/L (136-145) L 07/21/23 00:45 Potassium 4.1 mmol/L (3.5-5.1) 07/21/23 00:45 Chloride 97 mmol/L (98-107) L 07/21/23 00:45 Carbon Dioxide 21 mmol/L (22-29) L 07/21/23 00:45 Anion Gap 21.1 (5-19) H 07/21/23 00:45 BUN 20 mg/dL (6-20) 07/21/23 00:45 Creatinine 2.9 mg/dL (0.7-1.2) H 07/21/23 00:45 GFR Calculation 22.6 mL/min (90-130) L 07/21/23 00:45 Glucose 82 mg/dL (65-115) 07/21/23 00:45 Calculated Osmolality 282 mOsm/kg (285-295) L 07/21/23 00:45 Lactic Acid 1.0 mmol/L (0.5-2.2) 07/21/23 01:40 Calcium 9.7 mg/dL (8.5-10.5) 07/21/23 00:45 Total Bilirubin 0.2 mg/dL (0.15-1.2) 07/21/23 00:45 AST 28 U/L (0-40) 07/21/23 00:45 ALT 16 U/L (0-41) 07/21/23 00:45 Alkaline Phosphatase 70 U/L (40-130) 07/21/23 00:45 C-Reactive Protein 17.1 mg/L (0.0-4.9) H 07/21/23 00:45 Total Protein 7.3 g/dL (6.6-8.7) 07/21/23 00:45 Albumin 4.1 g/dL (3.5-5.2) 07/21/23 00:45 Globulin 3.2 g/dL (1.3-4.6) 07/21/23 00:45 Urine Color Yellow (Yellow) 07/21/23 02:34 Urine Appearance Clear (CLEAR) 07/21/23 02:34 Urine pH 5 (5-7) 07/21/23 02:34 Ur Specific [place] 1.015 (1.005-1.030) 07/21/23 02:34 Urine Protein Trace (Negative) 07/21/23 02:34 Urine Glucose (UA) Norm (Normal) 07/21/23 02:34 Urine Ketones 1+ (Negative) H 07/21/23 02:34 Urine Blood Neg (Negative) 07/21/23 02:34 Urine Nitrate Negative (Negative) 07/21/23 02:34 Urine Bilirubin Neg (Negative) 07/21/23 02:34 Urine Urobilinogen Neg mg/dL (Negative) 07/21/23 02:34 Ur Leukocyte Esterase Negative (Negative) 07/21/23 02:34 Urine RBC None /hpf (0-2) 07/21/23 02:34 Urine WBC None /hpf (0-5) 07/21/23 02:34 Ur Squamous Epith Cells None /hpf (0-5) 07/21/23 02:34 Amorphous Sediment 1+ /hpf 07/21/23 02:34 Urine Bacteria 1+ /hpf (NONE) H 07/21/23 02:34 Urine Mucus 2+ /hpf 07/21/23 02:34 All radiology interpretation(s) finalized by discharge Discharge Plan Discharge Patient Disposition: Home Clinical Impression: Viral gastroenteritis, Dehydration, Acute on chronic renal insufficiency Headache Qualifiers: Headache type: unspecified Headache chronicity pattern: acute headache I ntractability: not intractable Qualified Code(s): R51.9 - Headache, unspecified Condition: Stable Prescriptions: New dexamethasone 6 mg tablet 6 mg PO DAILY 5 Days Qty: 5 0RF ondansetron 8 mg tablet,disintegrating 8 mg PO .q6 PRN (Reason: nausea and vomiting) Qty: 14 0RF diclofenac sodium 50 mg tablet,delayed release (DR/EC) 50 mg PO Q12H Qty: 20 0RF No Action (DME) glucometer testing kit See Rx Instructions .Route .MEDSUPPLY Qty: 1 0RF Rx Instructions: glucometer testing kit, check BS TID lancets #100 strips# 100 hydrocortisone [Dermarest Eczema (hydrocort)] 1 % lotion 1 applic topical DAILY PRN (Reason: skin irritation) Qty: 120 0RF Rx Instructions: limit application to face ketoconazole 2 % shampoo 1 applic topical .2x weekly Qty: 120 6RF Rx Instructions: Lather into scalp 2-3 times weekly. Allow to sit on scalp for 5 minutes before rinsing. (DME) test strips See Rx Instructions .Route .MEDSUPPLY Qty: 100 6RF Rx Instructions: check BS TID meclizine 12.5 mg tablet 12.5 mg PO DAILY PRN (Reason: dizziness) 7 Days Qty: 7 0RF sodium chloride 0.9% (normal saline) 1 l IV .weekly Qty: 1000 12RF Rx Instructions: outpatient GI LAB [facility] (DME) diabetic shoes with 3 inserts See Rx Instructions .Route .MEDSUPPLY Qty: 1 0RF Rx Instructions: As directed to the Shoe [place] albuterol sulfate 90 mcg/actuation HFA aerosol inhaler 2 puff INHALATION Q4H PRN (Reason: Shortness Of Breath) 30 Days Qty: 8.5 1RF Rx Instructions: 2 inhalers tamsulosin 0.4 mg capsule 0.8 mg PO DAILY Qty: 180 2RF Rx Instructions: morning medication magnesium L-lactate [Magtab] 84 mg tablet extended release 84 mg PO DAILY 30 Days Qty: 30 0RF cholestyramine (with sugar) 4 gram powder 4 g PO DAILY 30 Days Qty: 378 0RF Rx Instructions: administer w/meal; avoid other meds within 1hr before or 4-6hr after dose varenicline [Chantix Starting Month Box] 0.5 mg (11)- 1 mg (42) tablets,dose pack See Rx Instructions PO PER PKG DIR Qty: 53 0RF Rx Instructions: PO PER PKG DIR Breztri Aerosphere 160-9-4.8 mcg/actuation HFA aerosol inhaler 2 inh inhalation BID Qty: 10.7 6RF atovaquone 750 mg/5 mL suspension See Rx Instructions .ROUTE .COMPLEX Qty: 210 3RF Dose Instruction: TAKE 10 ML BY MOUTH EVERY DAY WITH FOOD, PREFERABLY A HIGH FAT MEAL Rx Instructions: TAKE 10 ML BY MOUTH EVERY DAY WITH FOOD, PREFERABLY A HIGH FAT MEAL pantoprazole 40 mg tablet,delayed release (DR/EC) 40 mg PO DAILY Qty: 90 1RF Otezla 30 mg tablet 30 mg PO BID Qty: 60 3RF hydroxychloroquine 200 mg tablet 200 mg PO BID Qty: 60 5RF prednisone 20 mg tablet 20 mg PO DAILY Qty: 120 1RF sulfasalazine 500 mg tablet 1 g PO BID Qty: 120 5RF Rx Instructions: Take 1tab BID x1wk then then can go to 2 tabs BID. give with food. clobetasol 0.05 % solution 1 applic topical DAILY Qty: 50 3RF Rx Instructions: Apply a few drops to itchy areas on scalp as needed nitroglycerin 0.4 mg tablet, sublingual 0.4 mg sublingual Q5M PRN (Reason: chest pain) 30 Days Qty: 30 0RF Rx Instructions: do not exceed 3 doses per episode hydrocortisone 2.5 % cream 1 applic topical BID PRN (Reason: skin irritation) Qty: 30 2RF Rx Instructions: Apply twice daily to ears as needed for flares (DME) diabetic shoes with 3 inserts See Rx Instructions .Route .MEDSUPPLY Qty: 1 0RF Rx Instructions: As directed ethambutol 400 mg tablet 1,000 mg PO QPM 90 Days Qty: 225 3RF prasugrel [Effient] 10 mg tablet 10 mg PO DAILY Qty: 90 3RF gabapentin 800 mg tablet See Rx Instructions .ROUTE .COMPLEX Qty: 270 1RF Dose Instruction: TAKE 1 TABLET BY MOUTH 3 TIMES DAILY FOR 90 DAYS Rx Instructions: TAKE 1 TABLET BY MOUTH 3 TIMES DAILY FOR 90 DAYS lisinopril 20 mg tablet 20 mg PO BID 90 Days Qty: 180 0RF Hold Instructions: Resume on 01/04/22. rifampin 300 mg capsule 600 mg PO QAM 30 Days Qty: 60 3RF temazepam 30 mg capsule 30 mg PO BEDTIME 30 Days Qty: 30 4RF Arikayce 590 mg/8.4 mL suspension for nebulization 590 mg inhalation DAILY Qty: 235.2 0RF citalopram 40 mg tablet 40 mg PO DAILY Qty: 60 1RF ezetimibe 10 mg tablet 10 mg PO DAILY Qty: 90 1RF albuterol sulfate 1.25 mg/3 mL solution for nebulization See Rx Instructions .ROUTE .COMPLEX Qty: 90 1RF Dose Instruction: USE 1 VIAL IN NEBULIZER EVERY 6 HOURS NEEDED FOR BRONCHOSPASM Rx Instructions: USE 1 VIAL IN NEBULIZER EVERY 6 HOURS NEEDED FOR BRONCHOSPASM cyclobenzaprine 5 mg tablet See Rx Instructions .ROUTE .COMPLEX Qty: 90 0RF Dose Instruction: TAKE 1 TABLET BY MOUTH 3 TIMES DAILY NEEDED FOR MUSCLE SPASM Rx Instructions: TAKE 1 TABLET BY MOUTH 3 TIMES DAILY NEEDED FOR MUSCLE SPASM ramelteon 8 mg tablet See Rx Instructions .ROUTE .COMPLEX Qty: 30 2RF Dose Instruction: TAKE 1 TABLET BY MOUTH ONCE EVERY NIGHT AT BEDTIME FOR 30 DAYS Rx Instructions: TAKE 1 TABLET BY MOUTH ONCE EVERY NIGHT AT BEDTIME FOR 30 DAYS cholecalciferol (vitamin D3) [Vitamin D3] 25 mcg (1,000 unit) Capsule 25 mcg PO DAILY Qty: 0 Vitamin B-12 1,000 mcg Tablet 1,000 mcg PO DAILY acetaminophen 500 mg Tablet 1,000 mg PO Q6H PRN (Reason: Pain) aspirin 81 mg tablet,chewable 1 tab PO DAILY Qty: 90 2RF Discharge Orders: Discharge ED (Routine); Ordered 07/21/23 Ordered By: Tayler Tidwell Referrals: Lorie Mccormack NP [Primary Care Provider] - 1-3 days Discharge Diet: Advance as tolerated Discharge Activity: Increase activity as tolerated Patient Instructions: Dehydration (ED), Gastroenteritis (ED) Activity Restrictions/Additional Instructions: Thank you for choosing [facility] for your healthcare needs today. Please realize this is an emergency room and that we are providing you with a medical screening exam and this may not be complete and all inclusive of all the testing and or work up that you may need to determine your ailment or severity of your illness. You have been screened and evaluated and felt safe for discharge. Health conditions do change or evolve sometimes and as such it is important that you follow up with your Primary Doctor to be re checked, 3-5 days is a general good time frame for follow up. You are always welcome to return to the ED for re assessment if your symptoms are worsening or you have new concerns Coding Level of Care Code ED Underwriting Specialist for David Wick
[2023-07-21 00:59] VITALS: BP 131/105; PULSE 110; RESP 18; TEMP 36.7; O2SAT 95; BMI 3515.0
--- NOTE | 2023-07-21 01:05 | ECG_ITS ---
[facility] Test Date: 2023-07-21 Pat Name: Arelis Hardin Department: Room: Gender: Male [employer]: : 1965 Requested By: Tayler Singh Order Number: [id number] Guevara MD: Paul Braun M.D. Measurements Intervals [place] Rate: 96 P: 76 [place]: 138 QRS: 80 QRSD: 90 T: 78 QT: 336 QTc: 426 Interpretive Statements SINUS RHYTHM WITH SINUS ARRHYTHMIA Compared to ECG 09/29/2022 11:11:29 No significant changes Electronically Signed On 07-21-2023 7:24:40 CDT by Paul Braun M.D. [id number]
[2023-07-21 01:09] LABS: Basophils # 0.1 10^3/uL (0.0-0.1); Basophils % 0.7 %; Eosinophils # 0.1 10^3/uL (0.0-0.8); Eosinophils % 1.2 %; Hematocrit 37.5 % (37-53); Lymphocytes # 1.4 10^3/uL (0.8-4.8); Lymphocytes % 11.5 %; Mean Corpuscular HGB Conc 33.6 g/dL (30-55); Mean Corpuscular Hemoglobin 29.9 pg (27-33); Mean Corpuscular Volume 89.1 fl (82-101); Mean Platelet Volume 9.2 fL (7.4-10.4); Monocytes # 1.4 10^3/uL (0.2-0.9); Monocytes % 11.2 %; Neutrophils # 9.07 10^3/uL (1.8-7.7); Neutrophils % 75.2 %; Nucleated Red Blood Cells % 0 %; Platelet Count 520 10^3/cmm (157-399); Red Blood Count 4.21 10^6/uL (3.85-5.65); Red Cell Distribution Width 14.3 % (12.1-15.1); White Blood Count 12.07 10^3/uL (3.29-11.43)
[2023-07-21] MEDS: ondansetron 2 mg/ML SDV 2 mL 8 MG IVP ×2 (01:12→03:28)
[2023-07-21] MEDS: sodium chloride 0.9% 1,000 ML 999 ML IV ×2 (01:13)
[2023-07-21 01:39] LABS: Alanine Aminotransferase 16 U/L (0-41); Albumin Level 4.1 g/dL (3.5-5.2); Alkaline Phosphatase 70 U/L (40-130); Anion Gap 21.1 (5-19); Aspartate Amino Transferase 28 U/L (0-40); Blood Urea Nitrogen 20 mg/dL (6-20); C Reactive Protein 17.1 mg/L (0.0-4.9); Calcium 9.7 mg/dL (8.5-10.5); Carbon Dioxide 21 mmol/L (22-29); Chloride 97 mmol/L (98-107); Creatinine Clr Calc Pharmacy 32.8465; Globulin 3.2 g/dL (1.3-4.6); Glomerular Filtration Rate 22.6 mL/min (90-130); Glucose 82 mg/dL (65-115); Osmolality Calculated 282 mOsm/kg (285-295); Potassium 4.1 mmol/L (3.5-5.1); Sodium 135 mmol/L (136-145); Total Bilirubin 0.2 mg/dL (0.15-1.2); Total Protein 7.3 g/dL (6.6-8.7)
[2023-07-21 01:43] VITALS: BP 147/109; PULSE 98; RESP 16; O2SAT 100
[2023-07-21 02:10] VITALS: BP 160/87; PULSE 92; RESP 18; O2SAT 98
[2023-07-21] MEDS: morphine 4 mg/mL SDV 1 mL IVP ×2 (02:16→03:32)
[2023-07-21 02:35] VITALS: BP 159/100; PULSE 100; RESP 18; O2SAT 97
[2023-07-21 02:48] LABS: Glucose Urine UA Norm (Normal); Protein Urine Trace (Negative); Specific Gravity, Urine 1.015 (1.005-1.030); Urine Appearance Clear (CLEAR); Urine Color Yellow (Yellow); pH Urine 5 (5-7)
[2023-07-21 02:49] LABS: Add Urine Culture? No; Amorphous Sediment Urine 1+ /hpf; Bacteria Urine 1+ /hpf; Bilirubin Urine Neg (Negative); Blood Urine Neg (Negative); Ketones Urine 1+ (Negative); Leukocyte Esterase Urine Negative (Negative); Mucus Urine 2+ /hpf; Nitrate Urine Negative (Negative); Urobilinogen Urine Neg (Negative)
[2023-07-21 03:13] VITALS: BP 144/95; PULSE 102; RESP 16; O2SAT 95
[2023-07-21] MEDS: dexamethasone 10 mg/mL INJ IVP (03:22)
== END 2023-07-21 03:34 | disposition home or self-care (01) ==
PROVIDERS: Emergency Provider Emergency Medicine; PCP Nurse Practitioner Family
DX: A08.4 Viral intestinal infection, unspecified (principal); E86.0 Dehydration; E11.22 Type 2 diabetes mellitus with diabetic chronic kidney disease; N18.9 Chronic kidney disease, unspecified; J44.9 Chronic obstructive pulmonary disease, unspecified; I50.9 Heart failure, unspecified; R51.9 Headache, unspecified; Z79.82 Long term (current) use of aspirin
CPT/HCPCS: 36415; 74022; 80053; 81001; 83605; 85025; 86140; 87040; 93005; 96361; 96374; 96375; 96376; 99285; J1100; J2270; J2405; J7030

== ENCOUNTER 2023-08-14 10:00 | Oncology outpatient (recurring) (ONCR) | payer MEDICARE, MEDICAID, SELFPAY ==
[2023-07-23 15:15] VITALS: BP 151/78; PULSE 78; RESP 18; TEMP 36.2; O2SAT 98
[2023-07-23] MEDS: sodium chloride 0.9% 1,000 ML 999 ML IV (15:25)
[2023-07-23 16:56] VITALS: BP 154/84; PULSE 88; RESP 18; TEMP 36.6; O2SAT 94
[2023-07-29 14:10] LABS: Basophils # 0.1 10^3/uL (0.0-0.1); Basophils % 0.5 %; Eosinophils % 0.3 %; Hematocrit 31.2 % (37-53); Lymphocytes # 0.7 10^3/uL (0.8-4.8); Lymphocytes % 4.7 %; Mean Corpuscular HGB Conc 31.7 g/dL (30-55); Mean Corpuscular Hemoglobin 29.7 pg (27-33); Mean Corpuscular Volume 93.7 fl (82-101); Mean Platelet Volume 8.9 fL (7.4-10.4); Monocytes # 0.6 10^3/uL (0.2-0.9); Monocytes % 3.6 %; Neutrophils # 13.68 10^3/uL (1.8-7.7); Nucleated Red Blood Cells % 0 %; Platelet Count 454 10^3/cmm (157-399); Red Blood Count 3.33 10^6/uL (3.85-5.65); Red Cell Distribution Width 14.6 % (12.1-15.1); White Blood Count 15.19 10^3/uL (3.29-11.43)
[2023-07-29] MEDS: sodium chloride 0.9% 1,000 ML 999 ML IV (14:28)
[2023-07-29 14:37] LABS: Alanine Aminotransferase 12 U/L (0-41); Albumin Level 3.7 g/dL (3.5-5.2); Alkaline Phosphatase 53 U/L (40-130); Anion Gap 18.6 (5-19); Aspartate Amino Transferase 12 U/L (0-40); Blood Urea Nitrogen 28 mg/dL (6-20); C Reactive Protein 9.9 mg/L (0.0-4.9); Calcium 9.2 mg/dL (8.5-10.5); Carbon Dioxide 21 mmol/L (22-29); Chloride 99 mmol/L (98-107); Globulin 2.9 g/dL (1.3-4.6); Glomerular Filtration Rate 31.1 mL/min (90-130); Glucose 157 mg/dL (65-115); Lactate Dehydrogenase 171 U/L (135-225); Osmolality Calculated 285 mOsm/kg (285-295); Potassium 5.6 mmol/L (3.5-5.1); Sodium 133 mmol/L (136-145); Total Bilirubin 0.2 mg/dL (0.15-1.2); Total Protein 6.6 g/dL (6.6-8.7)
[2023-07-29 15:20] VITALS: BP 112/72; PULSE 68; RESP 16; TEMP 36.3; O2SAT 96
[2023-07-29 17:03] LABS: Ferritin 16 ng/mL (30-400); Iron 35 ug/dL (59-158); Percent Saturation 12.3 % (20-50); Total Iron Binding Capacity 283 mcg/dl; Unsaturated Iron Binding 248 ug/dL (112-347); Vitamin B12 968 pg/mL (232-1245)
[2023-08-04] MEDS: sodium chloride 0.9% 1,000 ML 999 ML IV (14:01)
[2023-08-04] MEDS: iron sucrose 200 MG in sodium chloride 0.9% (100 ml) 100 ML 220 MG IV (14:40)
[2023-08-04 15:13] VITALS: BP 112/73; PULSE 93; RESP 16; TEMP 36.9; O2SAT 95
[2023-08-06] MEDS: sodium chloride 0.9% 1,000 ML 999 ML IV (14:33)
[2023-08-06] MEDS: iron sucrose 200 MG in sodium chloride 0.9% (100 ml) 100 ML 220 MG IV (14:48)
[2023-08-06 15:41] VITALS: BP 122/77; PULSE 98; RESP 16; TEMP 36.5; O2SAT 100
[2023-08-10 14:41] VITALS: BP 149/85; PULSE 116; RESP 18; TEMP 36.7; O2SAT 97
[2023-08-10] MEDS: iron sucrose 200 MG in sodium chloride 0.9% (100 ml) 100 ML 220 MG IV (14:55)
[2023-08-10] MEDS: sodium chloride 0.9% 1,000 ML 999 ML IV (14:56)
[2023-08-10 16:10] VITALS: BP 141/87; PULSE 102; RESP 16; TEMP 36.5; O2SAT 96
[2023-08-12] MEDS: sodium chloride 0.9% 1,000 ML 999 ML IV (15:17)
[2023-08-12] MEDS: iron sucrose 200 MG in sodium chloride 0.9% (100 ml) 100 ML 220 MG IV (15:18)
[2023-08-12 16:50] VITALS: BP 118/75; PULSE 67; RESP 16; TEMP 36.6; O2SAT 95
[2023-08-14] MEDS: iron sucrose 200 MG in sodium chloride 0.9% (100 ml) 100 ML 220 MG IV (10:40)
[2023-08-14 11:17] VITALS: BP 154/96; PULSE 88; RESP 18; TEMP 36.5; O2SAT 96
== END 2023-08-16 23:59 | disposition home or self-care (01) ==
PROVIDERS: Internal Medicine Medical Oncology; PCP Nurse Practitioner Family; Visit Provider Family Medicine
DX: D50.9 Iron deficiency anemia, unspecified (principal); Z53.9 Procedure and treatment not carried out, unspecified reason
CPT/HCPCS: 11721; 36415; 80053; 82607; 82728; 83540; 83550; 83615; 85025; 86140; 96360; 96365; 99215; J1756; J7030

== ENCOUNTER 2023-09-15 12:30 | Oncology outpatient (recurring) (ONCR) | payer MEDICARE, MEDICAID, SELFPAY ==
[2023-08-18] MEDS: sodium chloride 0.9% 1,000 ML 999 ML IV (13:25)
[2023-08-18 14:38] VITALS: BP 119/85; PULSE 98; RESP 17; O2SAT 99
[2023-08-27 14:12] VITALS: BP 137/86; PULSE 97; RESP 18; TEMP 37.1; O2SAT 98
[2023-08-27] MEDS: sodium chloride 0.9% 1,000 ML 999 ML IV (14:16)
[2023-08-27 15:21] VITALS: BP 143/86; PULSE 87; O2SAT 96
[2023-09-01 15:05] VITALS: BP 130/81; PULSE 101; RESP 16; TEMP 36.6; O2SAT 96
[2023-09-01] MEDS: sodium chloride 0.9% 1,000 ML 999 ML IV (15:08)
[2023-09-07] MEDS: sodium chloride 0.9% 1,000 ML 999 ML IV (14:22)
[2023-09-07 15:30] VITALS: BP 128/80; PULSE 101; RESP 16; TEMP 37; O2SAT 94
[2023-09-15] MEDS: sodium chloride 0.9% 1,000 ML 999 ML IV (12:29)
[2023-09-15 12:46] LABS: Basophils # 0.1 10^3/uL (0.0-0.1); Basophils % 0.8 %; Eosinophils # 0.4 10^3/uL (0.0-0.8); Eosinophils % 3.8 %; Hematocrit 30.7 % (37-53); Lymphocytes # 1.3 10^3/uL (0.8-4.8); Lymphocytes % 11.1 %; Mean Corpuscular HGB Conc 31.9 g/dL (30-55); Mean Corpuscular Hemoglobin 29.6 pg (27-33); Mean Corpuscular Volume 92.7 fl (82-101); Mean Platelet Volume 8.7 fL (7.4-10.4); Monocytes # 0.9 10^3/uL (0.2-0.9); Monocytes % 7.7 %; Neutrophils # 8.64 10^3/uL (1.8-7.7); Neutrophils % 75.9 %; Nucleated Red Blood Cells % 0 %; Platelet Count 391 10^3/cmm (157-399); Red Blood Count 3.31 10^6/uL (3.85-5.65); Red Cell Distribution Width 16.3 % (12.1-15.1); White Blood Count 11.38 10^3/uL (3.29-11.43)
[2023-09-15 13:05] LABS: Alanine Aminotransferase 8 U/L (0-41); Albumin Level 3.5 g/dL (3.5-5.2); Alkaline Phosphatase 49 U/L (40-130); Anion Gap 17.2 (5-19); Aspartate Amino Transferase 10 U/L (0-40); Blood Urea Nitrogen 27 mg/dL (6-20); Calcium 8.9 mg/dL (8.5-10.5); Carbon Dioxide 22 mmol/L (22-29); Chloride 97 mmol/L (98-107); Ferritin 144 ng/mL (30-400); Globulin 2.6 g/dL (1.3-4.6); Glomerular Filtration Rate 29.6 mL/min (90-130); Glucose 155 mg/dL (65-115); Iron 43 ug/dL (59-158); Osmolality Calculated 280 mOsm/kg (285-295); Percent Saturation 23.7 % (20-50); Potassium 5.2 mmol/L (3.5-5.1); Sodium 131 mmol/L (136-145); Total Bilirubin 0.2 mg/dL (0.15-1.2); Total Iron Binding Capacity 181 mcg/dl; Total Protein 6.1 g/dL (6.6-8.7); Unsaturated Iron Binding 138 ug/dL (112-347)
[2023-09-15 13:25] VITALS: BP 117/72; PULSE 90; RESP 16; TEMP 36.6; O2SAT 94
== END 2023-09-16 23:59 | disposition home or self-care (01) ==
PROVIDERS: Nurse Practitioner Family; PCP Nurse Practitioner Family; Visit Provider Family Medicine
DX: D50.9 Iron deficiency anemia, unspecified (principal); Z53.9 Procedure and treatment not carried out, unspecified reason; R79.89 Other specified abnormal findings of blood chemistry; F17.210 Nicotine dependence, cigarettes, uncomplicated; Q61.3 Polycystic kidney, unspecified; N18.9 Chronic kidney disease, unspecified; A31.0 Pulmonary mycobacterial infection; I13.0 Hypertensive heart and chronic kidney disease with heart failure and stage 1 through stage 4 chronic kidney disease, or unspecified chronic kidney disease; E11.22 Type 2 diabetes mellitus with diabetic chronic kidney disease; I50.9 Heart failure, unspecified
CPT/HCPCS: 80053; 82728; 83540; 83550; 85025; 96360; 99214; J7030

== ENCOUNTER → 2023-09-22 12:48 | Outpatient (BNVA) | payer MEDICARE, MEDICAID, SELFPAY | PROVIDERS: PCP Nurse Practitioner Family; Visit Provider Internal Medicine Rheumatology | DX: R76.8 Other specified abnormal immunological findings in serum (principal); M06.041 Rheumatoid arthritis without rheumatoid factor, right hand; M06.042 Rheumatoid arthritis without rheumatoid factor, left hand; L40.0 Psoriasis vulgaris; A31.0 Pulmonary mycobacterial infection; Z79.899 Other long term (current) drug therapy; Z71.85 Encounter for immunization safety counseling; F17.210 Nicotine dependence, cigarettes, uncomplicated | CPT/HCPCS: 99215 ==

== ENCOUNTER 2023-10-07 15:36 | Outpatient (CLI) | payer MEDICARE, MEDICAID, SELFPAY ==
[2023-10-07 16:05] LABS: Basophils # 0.1 10^3/uL (0.0-0.1); Basophils % 0.9 %; Eosinophils # 0.3 10^3/uL (0.0-0.8); Eosinophils % 2.5 %; Hematocrit 40.3 % (37-53); Lymphocytes # 0.7 10^3/uL (0.8-4.8); Lymphocytes % 7.4 %; Mean Corpuscular Hemoglobin 29.9 pg (27-33); Mean Corpuscular Volume 93.3 fl (82-101); Mean Platelet Volume 8.7 fL (7.4-10.4); Monocytes # 0.5 10^3/uL (0.2-0.9); Neutrophils # 8.21 10^3/uL (1.8-7.7); Neutrophils % 83.6 %; Nucleated Red Blood Cells % 0 %; Platelet Count 297 10^3/cmm (157-399); Red Blood Count 4.32 10^6/uL (3.85-5.65); Red Cell Distribution Width 16.2 % (12.1-15.1); White Blood Count 9.83 10^3/uL (3.29-11.43)
[2023-10-07 16:13] LABS: Erythrocyte Sedimentation Rate 5 mm/hr (0-10)
[2023-10-07 16:32] LABS: Alanine Aminotransferase 10 U/L (0-41); Albumin Level 4.1 g/dL (3.5-5.2); Alkaline Phosphatase 59 U/L (40-130); Aspartate Amino Transferase 13 U/L (0-40); Globulin 2.1 g/dL (1.3-4.6); Glomerular Filtration Rate 26.8 mL/min (90-130); Total Bilirubin 0.2 mg/dL (0.15-1.2); Total Protein 6.2 g/dL (6.6-8.7)
[2023-10-07 21:36] LABS: Free T4 Free Thyroxine 0.95 ng/dL (0.82-1.77); Thyroid Stimulating Hormone 0.98 uIU/mL (0.27-4.20)
== END 2023-10-07 15:37 | disposition home or self-care (01) ==
LOC: LAB 15:39
PROVIDERS: PCP Nurse Practitioner Family; Visit Provider Internal Medicine Rheumatology
DX: L40.50 Arthropathic psoriasis, unspecified (principal); Z79.899 Other long term (current) drug therapy; M79.7 Fibromyalgia
CPT/HCPCS: 36415; 80076; 82565; 84439; 84443; 85025; 85651; 86140

== ENCOUNTER → 2023-10-12 12:57 | Outpatient (BNVA) | payer MEDICARE, MEDICAID, SELFPAY | PROVIDERS: PCP Nurse Practitioner Family; Visit Provider Podiatrist Foot & Ankle Surgery | DX: B35.1 Tinea unguium (principal); I73.9 Peripheral vascular disease, unspecified; G62.9 Polyneuropathy, unspecified; E11.42 Type 2 diabetes mellitus with diabetic polyneuropathy | CPT/HCPCS: 11721 ==

== ENCOUNTER 2023-10-13 13:30 | Oncology outpatient (recurring) (ONCR) | payer MEDICARE, MEDICAID, SELFPAY ==
[2023-09-23] MEDS: sodium chloride 0.9% 1,000 ML 999 ML IV (14:47)
[2023-09-23 16:27] VITALS: BP 156/84; PULSE 82; RESP 16; TEMP 36.7; O2SAT 98
[2023-10-01 13:36] VITALS: BP 122/83; PULSE 82; RESP 17; TEMP 36.9; O2SAT 94
[2023-10-01] MEDS: sodium chloride 0.9% 1,000 ML 999 ML IV (13:42)
[2023-10-07 13:55] VITALS: BP 125/73; PULSE 97; RESP 16; O2SAT 97
[2023-10-07] MEDS: sodium chloride 0.9% 1,000 ML 999 ML IV (14:09)
--- NOTE | 2023-10-07 15:18 | PC.NURSE ---
patient reports that he will call office to make next appt due to other appt conflicts and schedule at home.
[2023-10-13 13:54] VITALS: BP 136/84; PULSE 100; RESP 16; TEMP 36.9; O2SAT 95
[2023-10-13] MEDS: sodium chloride 0.9% 1,000 ML 999 ML IV (13:59)
[2023-10-13 14:06] LABS: Basophils # 0.1 10^3/uL (0.0-0.1); Basophils % 0.7 %; Eosinophils # 0.1 10^3/uL (0.0-0.8); Eosinophils % 1.1 %; Hematocrit 39.5 % (37-53); Lymphocytes # 0.5 10^3/uL (0.8-4.8); Lymphocytes % 4.8 %; Mean Corpuscular HGB Conc 33.4 g/dL (30-55); Mean Corpuscular Hemoglobin 31.3 pg (27-33); Mean Corpuscular Volume 93.6 fl (82-101); Monocytes # 0.3 10^3/uL (0.2-0.9); Monocytes % 2.6 %; Neutrophils # 9.95 10^3/uL (1.8-7.7); Neutrophils % 90.3 %; Nucleated Red Blood Cells % 0 %; Platelet Count 247 10^3/cmm (157-399); Red Blood Count 4.22 10^6/uL (3.85-5.65); Red Cell Distribution Width 15.9 % (12.1-15.1); White Blood Count 11.02 10^3/uL (3.29-11.43)
[2023-10-13 14:32] LABS: Alanine Aminotransferase 10 U/L (0-41); Albumin Level 4.2 g/dL (3.5-5.2); Alkaline Phosphatase 53 U/L (40-130); Anion Gap 16.9 (5-19); Aspartate Amino Transferase 14 U/L (0-40); Blood Urea Nitrogen 30 mg/dL (6-20); Calcium 9.1 mg/dL (8.5-10.5); Carbon Dioxide 23 mmol/L (22-29); Chloride 97 mmol/L (98-107); Glomerular Filtration Rate 29.6 mL/min (90-130); Glucose 156 mg/dL (65-115); Iron 103 ug/dL (59-158); Osmolality Calculated 283 mOsm/kg (285-295); Percent Saturation 39.7 % (20-50); Potassium 4.9 mmol/L (3.5-5.1); Sodium 132 mmol/L (136-145); Total Bilirubin 0.2 mg/dL (0.15-1.2); Total Iron Binding Capacity 259 mcg/dl; Total Protein 6.2 g/dL (6.6-8.7); Unsaturated Iron Binding 156 ug/dL (112-347)
== END 2023-10-17 23:59 | disposition home or self-care (01) ==
PROVIDERS: Nurse Practitioner Family; PCP Nurse Practitioner Family; Visit Provider Family Medicine
DX: D50.9 Iron deficiency anemia, unspecified (principal); Q61.3 Polycystic kidney, unspecified; Z79.899 Other long term (current) drug therapy
CPT/HCPCS: 80053; 83540; 83550; 85025; 96360; 99213; J7030

== ENCOUNTER 2023-10-21 14:20 | Outpatient (CLI) | payer MEDICARE, MEDICAID, SELFPAY ==
[2023-10-21 15:10] LABS: Basophils # 0.1 10^3/uL (0.0-0.1); Basophils % 1.2 %; Eosinophils # 0.5 10^3/uL (0.0-0.8); Eosinophils % 5.5 %; Lymphocytes # 1.3 10^3/uL (0.8-4.8); Lymphocytes % 14.9 %; Mean Corpuscular HGB Conc 32.9 g/dL (30-55); Mean Corpuscular Hemoglobin 31.3 pg (27-33); Mean Corpuscular Volume 95.1 fl (82-101); Mean Platelet Volume 8.5 fL (7.4-10.4); Monocytes # 1.1 10^3/uL (0.2-0.9); Monocytes % 12.6 %; Neutrophils # 5.52 10^3/uL (1.8-7.7); Neutrophils % 65.3 %; Nucleated Red Blood Cells % 0 %; Platelet Count 261 10^3/cmm (157-399); Red Blood Count 4.31 10^6/uL (3.85-5.65); Red Cell Distribution Width 15.9 % (12.1-15.1); White Blood Count 8.44 10^3/uL (3.29-11.43)
[2023-10-21 15:29] LABS: Urine Creatinine 172 mg/dL (39-259)
[2023-10-21 15:30] LABS: UPRO/UCREAT Ratio 0.29 mg/mg CR; Urine Protein Random 50 mg/dL
[2023-10-21 15:31] LABS: Albumin Level 4.3 g/dL (3.5-5.2); Anion Gap 14.8 (5-19); Blood Urea Nitrogen 29 mg/dL (6-20); Calcium 9.3 mg/dL (8.5-10.5); Carbon Dioxide 27 mmol/L (22-29); Chloride 98 mmol/L (98-107); Glomerular Filtration Rate 24.6 mL/min (90-130); Glucose 101 mg/dL (65-115); Phosphorus 4.5 mg/dL (2.5-4.5); Potassium 4.8 mmol/L (3.5-5.1); Sodium 135 mmol/L (136-145)
[2023-10-21 15:45] LABS: Calcium 9.5 mg/dL (8.5-10.5)
[2023-10-21 15:53] LABS: Parathyroid Hormone 60.3 pg/mL (15-65)
== END 2023-10-21 14:21 | disposition home or self-care (01) ==
LOC: LAB 14:24
PROVIDERS: PCP Nurse Practitioner Family; Visit Provider Registered Nurse
DX: N18.4 Chronic kidney disease, stage 4 (severe) (principal)
CPT/HCPCS: 36415; 80069; 82310; 82570; 83970; 84156; 85025

== ENCOUNTER → 2023-10-26 10:15 | Outpatient (BNVA) | payer MEDICARE, MEDICAID, SELFPAY | PROVIDERS: PCP Nurse Practitioner Family; Visit Provider Nurse Practitioner Family | DX: I25.10 Atherosclerotic heart disease of native coronary artery without angina pectoris (principal); I13.0 Hypertensive heart and chronic kidney disease with heart failure and stage 1 through stage 4 chronic kidney disease, or unspecified chronic kidney disease; E11.22 Type 2 diabetes mellitus with diabetic chronic kidney disease; N18.9 Chronic kidney disease, unspecified; I50.9 Heart failure, unspecified; E11.51 Type 2 diabetes mellitus with diabetic peripheral angiopathy without gangrene; Z79.84 Long term (current) use of oral hypoglycemic drugs | CPT/HCPCS: 99214 ==

== ENCOUNTER 2023-11-10 14:00 | Oncology outpatient (recurring) (ONCR) | payer MEDICARE, MEDICAID, SELFPAY ==
[2023-10-23] MEDS: sodium chloride 0.9% 1,000 ML 999 ML IV (10:37)
[2023-10-23 11:36] VITALS: BP 129/83; PULSE 89; RESP 16; TEMP 36.8; O2SAT 99
[2023-10-27] MEDS: sodium chloride 0.9% 1,000 ML 999 ML IV (10:56)
[2023-11-05] MEDS: sodium chloride 0.9% 1,000 ML 999 ML IV (15:03)
[2023-11-10] MEDS: sodium chloride 0.9% 1,000 ML 999 ML IV (14:02)
[2023-11-10 15:30] VITALS: BP 131/89; PULSE 116; RESP 16; TEMP 36.6; O2SAT 99
== END 2023-11-16 23:59 | disposition home or self-care (01) ==
PROVIDERS: PCP Nurse Practitioner Family; Visit Provider Family Medicine
DX: Z79.899 Other long term (current) drug therapy (principal); Z53.9 Procedure and treatment not carried out, unspecified reason; Z91.89 Other specified personal risk factors, not elsewhere classified
CPT/HCPCS: 96360; J7030

== ENCOUNTER 2023-11-13 14:28 | Outpatient (CLI) | payer MEDICARE, MEDICAID, SELFPAY ==
[2023-11-13 15:00] LABS: Basophils # 0.1 10^3/uL (0.0-0.1); Eosinophils # 0.2 10^3/uL (0.0-0.8); Eosinophils % 2.1 %; Hematocrit 46.6 % (37-53); Lymphocytes # 1.1 10^3/uL (0.8-4.8); Lymphocytes % 12.3 %; Mean Corpuscular HGB Conc 32.4 g/dL (30-55); Mean Corpuscular Hemoglobin 31.1 pg (27-33); Mean Corpuscular Volume 95.9 fl (82-101); Mean Platelet Volume 8.8 fL (7.4-10.4); Monocytes # 0.9 10^3/uL (0.2-0.9); Monocytes % 9.4 %; Neutrophils # 6.77 10^3/uL (1.8-7.7); Neutrophils % 74.8 %; Nucleated Red Blood Cells % 0 %; Platelet Count 273 10^3/cmm (157-399); Red Blood Count 4.86 10^6/uL (3.85-5.65); Red Cell Distribution Width 16.1 % (12.1-15.1); White Blood Count 9.05 10^3/uL (3.29-11.43)
[2023-11-13 15:11] LABS: Bilirubin Urine Negative (Negative); Blood Urine Non-haemolysed trace (Negative); Glucose Urine UA Negative (Normal); Ketones Urine Negative (Negative); Leukocyte Esterase Urine 1+ (Negative); Nitrate Urine Negative (Negative); Protein Urine 1+ (Negative); Specific Gravity, Urine 1.018 (1.005-1.030); Urine Appearance Clear (CLEAR); Urine Color Dark Yellow (Yellow); pH Urine 5.5 (5-7)
[2023-11-13 15:16] LABS: Add Urine Microscopic? YES; Bacteria Urine None Seen /hpf; Hyaline Casts Urine 5.36 /lpf; Squamous Epithelial Cell Urine 0-5 /hpf (0-5); WBC Urine 21-50 /hpf (0-5)
[2023-11-13 15:23] LABS: Albumin Level 4.3 g/dL (3.5-5.2); Anion Gap 16.9 (5-19); Blood Urea Nitrogen 43 mg/dL (6-20); Calcium 8.9 mg/dL (8.5-10.5); Carbon Dioxide 23 mmol/L (22-29); Chloride 103 mmol/L (98-107); Glomerular Filtration Rate 23.6 mL/min (90-130); Glucose 116 mg/dL (65-115); Phosphorus 4.5 mg/dL (2.5-4.5); Potassium 4.9 mmol/L (3.5-5.1); Sodium 138 mmol/L (136-145)
[2023-11-13 15:24] LABS: Calcium 9.2 mg/dL (8.5-10.5)
[2023-11-13 15:29] LABS: Add Urine Culture? Yes; Sperm Urine 1+ /hpf
[2023-11-13 15:30] LABS: Parathyroid Hormone 80.2 pg/mL (15-65)
[2023-11-13 15:31] LABS: Creatinine Urine, Random 138 mg/dL (39-259); Microalbumin Random Urine 25 ug/dL (0-20)
[2023-11-13 15:33] LABS: Microalbum Creatinine Ratio Ur 181 mg/dL (0-20); Urine Protein Random 49 mg/dL
[2023-11-13 15:38] LABS: 25 Hydroxy Vitamin D 56 ng/mL (30-100)
== END 2023-11-13 14:29 | disposition home or self-care (01) ==
LOC: LAB 14:30
PROVIDERS: PCP Nurse Practitioner Family; Visit Provider Internal Medicine Nephrology
DX: N28.1 Cyst of kidney, acquired (principal); N18.31 Chronic kidney disease, stage 3a; M35.3 Polymyalgia rheumatica; A31.0 Pulmonary mycobacterial infection; I10 Essential (primary) hypertension
CPT/HCPCS: 36415; 80069; 81001; 82044; 82306; 82310; 83970; 84156; 85025; 87086

== ENCOUNTER → 2023-12-14 13:20 | Outpatient (BNVA) | payer MEDICARE, MEDICAID, SELFPAY | PROVIDERS: PCP Nurse Practitioner Family; Visit Provider Podiatrist Foot & Ankle Surgery | DX: B35.1 Tinea unguium (principal); I73.9 Peripheral vascular disease, unspecified; E11.42 Type 2 diabetes mellitus with diabetic polyneuropathy; G62.9 Polyneuropathy, unspecified | CPT/HCPCS: 11721 ==

== ENCOUNTER 2023-12-15 13:30 | Oncology outpatient (recurring) (ONCR) | payer MEDICARE, MEDICAID, SELFPAY ==
[2023-11-17] MEDS: sodium chloride 0.9% 1,000 ML 999 ML IV (14:23)
[2023-11-17 15:30] VITALS: BP 135/88; PULSE 89; RESP 17; TEMP 36.7; O2SAT 99
--- NOTE | 2023-11-20 10:45 | CTR_ITS ---
PROCEDURE INFORMATION: Exam: CT Chest Without Contrast; Diagnostic Exam date and time: 11/20/2023 10:00 AM Age: 57 years old Clinical indication: Condition or disease; Other: Pulmonary mac; Additional info: Follow up pulmonary mac, on treatment TECHNIQUE: Imaging protocol: Diagnostic computed tomography of the chest without contrast. Radiation optimization: All CT scans at this facility use at least one of these dose optimization techniques: automated exposure control; mA and/or kV adjustment per patient size (includes targeted exams where dose is matched to clinical indication); or iterative reconstruction. COMPARISON: CT chest wo con [id number] 05/13/2023 12:24 PM RADIATION DOSE METRICS: Total DLP (mGy-cm): 395.32 FINDINGS: Tubes, catheters and devices: There is a neuro stimulatory device with pattern implanted within the left anterior chest wall unchanged. Lungs: COPD with scattered emphysematous changes mid to upper lung zones relatively stable. Chronic upper lobe bronchiectasis and scarring relatively stable. There is an 8.5 x 5.5 cm thick walled cavity left upper lobe increased in size from previous exam suggestive of either tuberculous or non tuberculous mycobacterium infection. There is mild scattered bronchiolitis mid to upper lung zones mildly progressed from previous exam. Pleural spaces: Unremarkable. No pneumothorax. No pleural effusion. Heart: Heart is not enlarged. Diffuse calcification of the coronary arteries. Evidence of previous coronary artery stenting. No significant pericardial effusion. Lymph nodes: Unremarkable. No enlarged lymph nodes. Vasculature: Scattered atherosclerotic changes of the thoracic aorta. No aortic aneurysm. Kidneys: Innumerable renal cysts and multiple liver cysts redemonstrated likely secondary to polycystic kidney disease. Bones/joints: Unremarkable. No acute fracture. Soft tissues: Unremarkable. Other findings: : CT/CT chest wo con [id number] IMPRESSION: 1. 8.5 x 5.5 cm thick-walled cavity left upper lobe increased in size from previous exam consistent with history of mycobacterium infection. 2. COPD with upper lobe emphysematous changes and bronchiectasis, stable. 3. Mild scattered bronchiolitis progressed from prior study. 4. Additional chronic findings as above. COMMENTS: 1. Consistent with the [employer]'s Incidental Findings Committee white paper (J Am Keo Radiol 2018): Any incidental renal lesion less than 1 cm or classified as too small to characterize, or any incidental cystic renal lesion characterized as simple-appearing, is likely benign. No follow-up imaging is recommended for these lesions per consensus recommendations based on imaging criteria. 2. The presence of pulmonary emphysema on CT is an independent risk factor for lung cancer. In the absence of a history or active diagnosis of lung cancer, it is recommended that this patient with emphysema be evaluated for enrollment in a low dose CT lung cancer screening program.
[2023-11-24] MEDS: sodium chloride 0.9% 1,000 ML 999 ML IV (14:25)
[2023-11-24 15:15] VITALS: BP 136/74; PULSE 74; RESP 16; TEMP 36.8; O2SAT 94
[2023-12-03] MEDS: sodium chloride 0.9% 1,000 ML 999 ML IV (15:04)
[2023-12-09] MEDS: sodium chloride 0.9% 1,000 ML 999 ML IV (14:35)
[2023-12-15 14:18] VITALS: BP 98/70; PULSE 73; RESP 18; TEMP 36.1
[2023-12-15 14:26] LABS: Basophils # 0.1 10^3/uL (0.0-0.1); Basophils % 0.8 %; Eosinophils # 0.4 10^3/uL (0.0-0.8); Eosinophils % 3.8 %; Lymphocytes # 1.2 10^3/uL (0.8-4.8); Lymphocytes % 12.7 %; Mean Corpuscular HGB Conc 33.8 g/dL (30-55); Mean Corpuscular Hemoglobin 32.7 pg (27-33); Mean Corpuscular Volume 96.8 fl (82-101); Monocytes # 0.9 10^3/uL (0.2-0.9); Neutrophils # 6.63 10^3/uL (1.8-7.7); Neutrophils % 72.5 %; Nucleated Red Blood Cells % 0 %; Platelet Count 258 10^3/cmm (157-399); Red Blood Count 4.65 10^6/uL (3.85-5.65); Red Cell Distribution Width 14.9 % (12.1-15.1); White Blood Count 9.14 10^3/uL (3.29-11.43)
[2023-12-15 14:51] LABS: Alanine Aminotransferase 12 U/L (0-41); Albumin Level 4.1 g/dL (3.5-5.2); Alkaline Phosphatase 51 U/L (40-130); Aspartate Amino Transferase 17 U/L (0-40); Blood Urea Nitrogen 37 mg/dL (6-20); Calcium 8.7 mg/dL (8.5-10.5); Carbon Dioxide 19 mmol/L (22-29); Chloride 105 mmol/L (98-107); Creatinine Clr Calc Pharmacy 34.7327; Ferritin 52 ng/mL (30-400); Globulin 1.9 g/dL (1.3-4.6); Glomerular Filtration Rate 25.7 mL/min (90-130); Glucose 87 mg/dL (65-115); Iron 94 ug/dL (59-158); Osmolality Calculated 286 mOsm/kg (285-295); Percent Saturation 34.8 % (20-50); Sodium 134 mmol/L (136-145); Total Bilirubin 0.2 mg/dL (0.15-1.2); Total Iron Binding Capacity 270 mcg/dl; Unsaturated Iron Binding 176 ug/dL (112-347)
[2023-12-15 14:55] LABS: Anion Gap 15.3 (5-19); Potassium 5.3 mmol/L (3.5-5.1)
[2023-12-15] MEDS: sodium chloride 0.9% 1,000 ML 999 ML IV (15:36)
[2023-12-15 15:38] VITALS: BP 109/67; PULSE 86; RESP 18; TEMP 36.6; O2SAT 97
== END 2023-12-17 23:59 | disposition home or self-care (01) ==
PROVIDERS: Nurse Practitioner Family; Absent Provider Student in an Organized Health Care Education/Training Program; PCP Nurse Practitioner Family; Visit Provider Student in an Organized Health Care Education/Training Program
DX: Z91.89 Other specified personal risk factors, not elsewhere classified (principal); Z79.899 Other long term (current) drug therapy; Z53.9 Procedure and treatment not carried out, unspecified reason; D50.9 Iron deficiency anemia, unspecified; Q61.3 Polycystic kidney, unspecified
CPT/HCPCS: 71250; 80053; 82728; 83540; 83550; 85025; 87015; 87116; 87206; 87801; 96360; 99213; J7030

== ENCOUNTER → 2023-12-25 08:46 | Outpatient (BNVA) | payer MEDICARE, MEDICAID, SELFPAY | PROVIDERS: PCP Nurse Practitioner Family; Visit Provider Dermatology | DX: L40.0 Psoriasis vulgaris (principal); L81.4 Other melanin hyperpigmentation; D22.4 Melanocytic nevi of scalp and neck; L40.59 Other psoriatic arthropathy | CPT/HCPCS: 11901; 99214 ==

== ENCOUNTER 2024-01-13 15:00 | Oncology outpatient (recurring) (ONCR) | payer MEDICARE, MEDICAID, SELFPAY ==
[2023-12-23] MEDS: sodium chloride 0.9% 1,000 ML 999 ML IV (14:52)
[2023-12-23 15:08] LABS: Anion Gap 16.5 (5-19); Blood Urea Nitrogen 25 mg/dL (6-20); Calcium 8.9 mg/dL (8.5-10.5); Carbon Dioxide 22 mmol/L (22-29); Chloride 106 mmol/L (98-107); Glucose 134 mg/dL (65-115); Osmolality Calculated 296 mOsm/kg (285-295); Potassium 4.5 mmol/L (3.5-5.1); Sodium 140 mmol/L (136-145)
[2023-12-30] MEDS: sodium chloride 0.9% 1,000 ML 150 ML IV (15:33)
[2023-12-30 16:47] VITALS: BP 142/90; PULSE 79; RESP 17; TEMP 36.3; O2SAT 99
[2024-01-06] MEDS: sodium chloride 0.9% 1,000 ML 999 ML IV (15:14)
[2024-01-06 16:28] VITALS: BP 115/83; PULSE 85; RESP 16; TEMP 36.6; O2SAT 98
[2024-01-13] MEDS: sodium chloride 0.9% 1,000 ML 999 ML IV (15:09)
[2024-01-13 16:13] VITALS: BP 130/78; PULSE 90; RESP 16; TEMP 36.8; O2SAT 96
== END 2024-01-16 23:59 | disposition home or self-care (01) ==
PROVIDERS: Nurse Practitioner Family; Absent Provider Student in an Organized Health Care Education/Training Program; PCP Nurse Practitioner Family; Visit Provider Student in an Organized Health Care Education/Training Program
DX: Z53.9 Procedure and treatment not carried out, unspecified reason (principal); Z91.89 Other specified personal risk factors, not elsewhere classified; Z79.899 Other long term (current) drug therapy
CPT/HCPCS: 80048; 96360; J7030

== ENCOUNTER → 2024-02-02 12:49 | Outpatient (BNVA) | payer MEDICARE, MEDICAID, SELFPAY | PROVIDERS: PCP Nurse Practitioner Family; Visit Provider Internal Medicine Rheumatology | DX: M06.041 Rheumatoid arthritis without rheumatoid factor, right hand (principal); M06.042 Rheumatoid arthritis without rheumatoid factor, left hand; L40.0 Psoriasis vulgaris; Z79.899 Other long term (current) drug therapy; R76.8 Other specified abnormal immunological findings in serum; Z71.85 Encounter for immunization safety counseling; A31.0 Pulmonary mycobacterial infection | CPT/HCPCS: 99214 ==

== ENCOUNTER 2024-02-11 15:00 | Oncology outpatient (recurring) (ONCR) | payer MEDICARE, MEDICAID, SELFPAY ==
[2024-01-20] MEDS: sodium chloride 0.9% 1,000 ML 999 ML IV (15:39)
[2024-01-20 16:55] VITALS: BP 131/84; PULSE 88; RESP 18; TEMP 36.5
[2024-01-26] MEDS: sodium chloride 0.9% 1,000 ML 999 ML IV (15:27)
[2024-02-02] MEDS: sodium chloride 0.9% 1,000 ML 999 ML IV (15:24)
[2024-02-11] MEDS: sodium chloride 0.9% 1,000 ML 999 ML IV (16:20)
[2024-02-11 17:38] VITALS: BP 119/74; PULSE 89; RESP 17; TEMP 36.4; O2SAT 97
== END 2024-02-16 23:59 | disposition home or self-care (01) ==
PROVIDERS: Absent Provider Student in an Organized Health Care Education/Training Program; PCP Nurse Practitioner Family; Visit Provider Student in an Organized Health Care Education/Training Program
DX: Z79.899 Other long term (current) drug therapy; Z53.9 Procedure and treatment not carried out, unspecified reason; E86.0 Dehydration
CPT/HCPCS: 11901; 96360; 99214; J7030

== ENCOUNTER 2024-03-15 12:45 | Oncology outpatient (recurring) (ONCR) | payer MEDICARE, MEDICAID, SELFPAY ==
[2024-02-18] MEDS: sodium chloride 0.9% 1,000 ML 999 ML IV (15:12)
[2024-02-18 16:27] VITALS: BP 121/68; PULSE 74; RESP 18; TEMP 36.6; O2SAT 98
[2024-02-23] MEDS: sodium chloride 0.9% 1,000 ML 999 ML IV (13:54)
[2024-02-23 15:08] VITALS: BP 128/76; PULSE 84; RESP 18; TEMP 36.8; O2SAT 94
[2024-03-01] MEDS: sodium chloride 0.9% 1,000 ML 999 ML IV (14:59)
[2024-03-01 16:21] VITALS: BP 137/70; PULSE 90; RESP 18; TEMP 36.6; O2SAT 98
[2024-03-09 14:46] VITALS: BP 131/83; PULSE 76; RESP 17; TEMP 36.2; O2SAT 99
[2024-03-09] MEDS: sodium chloride 0.9% 1,000 ML 999 ML IV (14:48)
[2024-03-15 13:00] LABS: Basophils # 0.1 10^3/uL (0.0-0.1); Basophils % 0.7 %; Eosinophils # 0.2 10^3/uL (0.0-0.8); Eosinophils % 2.7 %; Hematocrit 40.9 % (37-53); Lymphocytes # 0.4 10^3/uL (0.8-4.8); Lymphocytes % 6.5 %; Mean Corpuscular HGB Conc 33.3 g/dL (30-55); Mean Corpuscular Hemoglobin 32.2 pg (27-33); Mean Corpuscular Volume 96.9 fl (82-101); Mean Platelet Volume 9.1 fL (7.4-10.4); Monocytes # 0.3 10^3/uL (0.2-0.9); Monocytes % 4.9 %; Neutrophils # 5.72 10^3/uL (1.8-7.7); Neutrophils % 84.9 %; Nucleated Red Blood Cells % 0 %; Platelet Count 221 10^3/cmm (157-399); Red Blood Count 4.22 10^6/uL (3.85-5.65); Red Cell Distribution Width 13.1 % (12.1-15.1); White Blood Count 6.74 10^3/uL (3.29-11.43)
[2024-03-15 13:04] LABS: Erythrocyte Sedimentation Rate < 1 mm/hr (0-10)
[2024-03-15] MEDS: sodium chloride 0.9% 1,000 ML 999 ML IV (13:10)
[2024-03-15 13:17] LABS: Alanine Aminotransferase 11 U/L (0-41); Albumin Level 4.1 g/dL (3.5-5.2); Alkaline Phosphatase 48 U/L (40-130); Anion Gap 14.6 (5-19); Aspartate Amino Transferase 15 U/L (0-40); Blood Urea Nitrogen 40 mg/dL (6-20); Calcium 8.6 mg/dL (8.5-10.5); Carbon Dioxide 22 mmol/L (22-29); Chloride 103 mmol/L (98-107); Globulin 1.8 g/dL (1.3-4.6); Glomerular Filtration Rate 25.6 mL/min (90-130); Glucose 121 mg/dL (65-115); Iron 110 ug/dL (59-158); Osmolality Calculated 289 mOsm/kg (285-295); Percent Saturation 43.1 % (20-50); Potassium 5.6 mmol/L (3.5-5.1); Sodium 134 mmol/L (136-145); Total Bilirubin 0.2 mg/dL (0.15-1.2); Total Iron Binding Capacity 255 mcg/dl; Total Protein 5.9 g/dL (6.6-8.7); Unsaturated Iron Binding 145 ug/dL (112-347)
== END 2024-03-18 23:59 | disposition home or self-care (01) ==
PROVIDERS: Internal Medicine Medical Oncology; Absent Provider Student in an Organized Health Care Education/Training Program; PCP Nurse Practitioner Family; Visit Provider Student in an Organized Health Care Education/Training Program
DX: E88.09 Other disorders of plasma-protein metabolism, not elsewhere classified (principal); Z53.9 Procedure and treatment not carried out, unspecified reason; M06.041 Rheumatoid arthritis without rheumatoid factor, right hand; M06.042 Rheumatoid arthritis without rheumatoid factor, left hand; F17.210 Nicotine dependence, cigarettes, uncomplicated; D50.9 Iron deficiency anemia, unspecified; Q61.3 Polycystic kidney, unspecified; N18.9 Chronic kidney disease, unspecified
CPT/HCPCS: 11721; 80053; 83540; 83550; 85025; 85651; 96360; 99214; J7030

== ENCOUNTER 2024-04-12 15:00 | Oncology outpatient (recurring) (ONCR) | payer MEDICARE, MEDICAID, SELFPAY ==
[2024-03-22] MEDS: sodium chloride 0.9% 1,000 ML 999 ML IV (14:56)
[2024-03-22 16:13] VITALS: BP 148/91; PULSE 96; RESP 16; TEMP 36.8; O2SAT 94
[2024-03-31 15:05] VITALS: BP 121/77; PULSE 98; RESP 17; TEMP 37.2; O2SAT 96
[2024-03-31] MEDS: sodium chloride 0.9% 1,000 ML 999 ML IV (15:23)
[2024-03-31 16:32] VITALS: BP 129/87; PULSE 69; RESP 17; TEMP 36.8; O2SAT 97
[2024-04-12] MEDS: sodium chloride 0.9% 1,000 ML 999 ML IV (15:07)
[2024-04-12 16:15] VITALS: BP 136/76; PULSE 86; RESP 20; TEMP 37.1; O2SAT 95
== END 2024-04-15 23:59 | disposition home or self-care (01) ==
PROVIDERS: Absent Provider Student in an Organized Health Care Education/Training Program; PCP Nurse Practitioner Family; Visit Provider Student in an Organized Health Care Education/Training Program
DX: Z53.9 Procedure and treatment not carried out, unspecified reason; Z91.89 Other specified personal risk factors, not elsewhere classified
CPT/HCPCS: 96360; J7030

== ENCOUNTER 2024-04-14 14:26 | Outpatient (CLI) | payer MEDICARE, MEDICAID, SELFPAY ==
[2024-04-14 15:04] LABS: Basophils # 0.1 10^3/uL (0.0-0.1); Basophils % 0.8 %; Eosinophils # 0.4 10^3/uL (0.0-0.8); Eosinophils % 5.1 %; Hematocrit 44.4 % (37-53); Lymphocytes # 1.3 10^3/uL (0.8-4.8); Lymphocytes % 18.4 %; Mean Corpuscular HGB Conc 33.6 g/dL (30-55); Mean Corpuscular Hemoglobin 33.3 pg (27-33); Mean Corpuscular Volume 99.1 fl (82-101); Mean Platelet Volume 9.1 fL (7.4-10.4); Monocytes # 0.9 10^3/uL (0.2-0.9); Monocytes % 12.7 %; Neutrophils # 4.51 10^3/uL (1.8-7.7); Neutrophils % 62.7 %; Nucleated Red Blood Cells % 0 %; Platelet Count 230 10^3/cmm (157-399); Red Blood Count 4.48 10^6/uL (3.85-5.65); Red Cell Distribution Width 13.6 % (12.1-15.1); White Blood Count 7.19 10^3/uL (3.29-11.43)
[2024-04-14 15:18] LABS: Creatinine Urine, Random 69 mg/dL (39-259); Microalbumin Random Urine 7 ug/dL (0-20)
[2024-04-14 15:20] LABS: Microalbum Creatinine Ratio Ur 101 mg/dL (0-20)
[2024-04-14 15:21] LABS: Albumin Level 4.4 g/dL (3.5-5.2); Anion Gap 12.1 (5-19); Blood Urea Nitrogen 36 mg/dL (6-20); Calcium 9.2 mg/dL (8.5-10.5); Carbon Dioxide 26 mmol/L (22-29); Chloride 105 mmol/L (98-107); Glucose 104 mg/dL (65-115); Phosphorus 4.6 mg/dL (2.5-4.5); Potassium 5.1 mmol/L (3.5-5.1); Sodium 138 mmol/L (136-145)
[2024-04-14 15:34] LABS: Calcium 9.3 mg/dL (8.5-10.5); Parathyroid Hormone 96.7 pg/mL (15-65)
== END 2024-04-14 14:27 | disposition home or self-care (01) ==
PROVIDERS: PCP Nurse Practitioner Family; Visit Provider Registered Nurse
DX: N18.4 Chronic kidney disease, stage 4 (severe) (principal)
CPT/HCPCS: 36415; 80069; 82044; 82310; 83970; 85025

== ENCOUNTER 2024-04-28 14:12 | Outpatient (CLI) | payer MEDICARE, MEDICAID, SELFPAY ==
--- NOTE | 2024-04-28 14:19 | US_ITS ---
WS: [id number] Bilateral renal ultrasound, 04/28/2024 Clinical Data: CKD and polycystic kidneys Comparison: Renal ultrasound, 02/27/2021 Findings: The right kidney measures 15.6 cm x 10.0 cm x 8.4 cm and the left kidney is 13.5 cm x 8.4 cm x 8.7 cm. There are multiple cysts in both kidneys. The largest right renal cyst was 10.0 cm and the largest left renal cyst was 5.0 cm. The abdominal aorta and inferior vena cava show no vascular abnormalities. The bladder was scanned and was not fully distended. US/US renal BI* [id number] Impression: Polycystic disease of the kidneys.
== END 2024-04-28 14:13 | disposition home or self-care (01) ==
LOC: RAD 14:13
PROVIDERS: PCP Nurse Practitioner Family; Visit Provider Internal Medicine Nephrology
DX: N18.4 Chronic kidney disease, stage 4 (severe) (principal); N28.1 Cyst of kidney, acquired
CPT/HCPCS: 76770

== ENCOUNTER 2024-05-12 15:00 | Oncology outpatient (recurring) (ONCR) | payer MEDICARE, MEDICAID, SELFPAY ==
[2024-04-20] MEDS: sodium chloride 0.9% 1,000 ML 999 ML IV (08:35)
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
[2024-04-26 15:05] VITALS: BP 113/76; PULSE 75; RESP 17; TEMP 36.7; O2SAT 96
[2024-04-26] MEDS: sodium chloride 0.9% 1,000 ML 999 ML IV (15:10)
[2024-05-03] MEDS: sodium chloride 0.9% 1,000 ML 999 ML IV (15:37)
[2024-05-03 15:39] VITALS: BP 98/62; PULSE 82; RESP 16; TEMP 36.8; O2SAT 94
[2024-05-12] MEDS: sodium chloride 0.9% 1,000 ML 999 ML IV (15:00)
[2024-05-12 16:04] VITALS: BP 120/78; PULSE 78; RESP 18; TEMP 36.6; O2SAT 98
== END 2024-05-16 23:59 | disposition home or self-care (01) ==
PROVIDERS: Absent Provider Student in an Organized Health Care Education/Training Program; PCP Nurse Practitioner Family; Visit Provider Student in an Organized Health Care Education/Training Program
DX: Z53.9 Procedure and treatment not carried out, unspecified reason; Z91.89 Other specified personal risk factors, not elsewhere classified; Z79.899 Other long term (current) drug therapy
CPT/HCPCS: 93923; 96360; J7030

== ENCOUNTER → 2024-06-01 13:10 | Outpatient (BNVA) | payer MEDICARE, MEDICAID, SELFPAY | PROVIDERS: PCP Nurse Practitioner Family; Visit Provider Podiatrist Foot & Ankle Surgery | DX: E11.42 Type 2 diabetes mellitus with diabetic polyneuropathy (principal); B35.1 Tinea unguium; I73.9 Peripheral vascular disease, unspecified; G62.9 Polyneuropathy, unspecified | CPT/HCPCS: 11721 ==

== ENCOUNTER → 2024-06-03 07:50 | Outpatient (BNVA) | payer MEDICARE, MEDICAID, SELFPAY | PROVIDERS: PCP Nurse Practitioner Family; Visit Provider Internal Medicine | DX: N18.9 Chronic kidney disease, unspecified (principal); N25.81 Secondary hyperparathyroidism of renal origin; R79.89 Other specified abnormal findings of blood chemistry; M06.041 Rheumatoid arthritis without rheumatoid factor, right hand; M06.042 Rheumatoid arthritis without rheumatoid factor, left hand; L40.0 Psoriasis vulgaris; Z79.899 Other long term (current) drug therapy | CPT/HCPCS: 36415; 82565; 84146; 85025; 85651; 86140; 99204 ==

== ENCOUNTER 2024-06-14 14:47 | Oncology outpatient (recurring) (ONCR) | payer MEDICARE, MEDICAID, SELFPAY ==
[2024-05-19] MEDS: sodium chloride 0.9% 1,000 ML 999 ML IV (15:07)
[2024-05-19 15:22] VITALS: BP 124/78; PULSE 78; RESP 18; TEMP 36.6; O2SAT 96
[2024-05-19 16:10] VITALS: BP 124/76; PULSE 76; RESP 17; TEMP 36.6; O2SAT 96
[2024-05-26] MEDS: sodium chloride 0.9% 1,000 ML 999 ML IV (15:33)
[2024-06-02] MEDS: sodium chloride 0.9% 1,000 ML 999 ML IV (14:48)
[2024-06-14] MEDS: sodium chloride 0.9% 1,000 ML 999 ML IV (15:28)
== END 2024-06-15 23:59 | disposition home or self-care (01) ==
PROVIDERS: Absent Provider Student in an Organized Health Care Education/Training Program; PCP Nurse Practitioner Family; Visit Provider Student in an Organized Health Care Education/Training Program
DX: Z91.89 Other specified personal risk factors, not elsewhere classified (principal); Z79.899 Other long term (current) drug therapy
CPT/HCPCS: 11901; 96360; 99214; J7030

== ENCOUNTER 2024-07-07 13:17 | Outpatient (CLI) | payer OTHER, MEDICAID, SELFPAY ==
[2024-07-07 14:03] LABS: Blood Urea Nitrogen 43 mg/dL (6-20); Calcium 8.8 mg/dL (8.5-10.5); Carbon Dioxide 20 mmol/L (22-29); Chloride 103 mmol/L (98-107); Glomerular Filtration Rate 29.5 mL/min (90-130); Glucose 112 mg/dL (65-115); Osmolality Calculated 288 mOsm/kg (285-295); Sodium 133 mmol/L (136-145)
== END 2024-07-07 13:18 | disposition home or self-care (01) ==
PROVIDERS: PCP Nurse Practitioner Family; Visit Provider Internal Medicine Nephrology
DX: I12.9 Hypertensive chronic kidney disease with stage 1 through stage 4 chronic kidney disease, or unspecified chronic kidney disease (principal); N18.4 Chronic kidney disease, stage 4 (severe)
CPT/HCPCS: 36415; 80048

== ENCOUNTER 2024-07-14 14:50 | Oncology outpatient (recurring) (ONCR) | payer OTHER, MEDICAID, SELFPAY ==
[2024-06-21 14:38] LABS: Basophils % 0.5 %; Eosinophils # 0.1 10^3/uL (0.0-0.8); Eosinophils % 0.8 %; Lymphocytes # 0.4 10^3/uL (0.8-4.8); Lymphocytes % 4.7 %; Mean Corpuscular HGB Conc 33.1 g/dL (30-55); Mean Corpuscular Hemoglobin 32.6 pg (27-33); Mean Corpuscular Volume 98.6 fl (82-101); Mean Platelet Volume 9.2 fL (7.4-10.4); Monocytes # 0.3 10^3/uL (0.2-0.9); Neutrophils # 7.76 10^3/uL (1.8-7.7); Neutrophils % 90.6 %; Nucleated Red Blood Cells % 0 %; Platelet Count 222 10^3/cmm (157-399); Red Blood Count 4.26 10^6/uL (3.85-5.65); Red Cell Distribution Width 13.4 % (12.1-15.1); White Blood Count 8.56 10^3/uL (3.29-11.43)
[2024-06-21 14:57] LABS: Alanine Aminotransferase 16 U/L (0-41); Alkaline Phosphatase 37 U/L (40-130); Aspartate Amino Transferase 19 U/L (0-40); Blood Urea Nitrogen 47 mg/dL (6-20); Calcium 8.5 mg/dL (8.5-10.5); Carbon Dioxide 17 mmol/L (22-29); Chloride 105 mmol/L (98-107); Creatinine Clr Calc Pharmacy 33.5904; Ferritin 26 ng/mL (30-400); Globulin 1.6 g/dL (1.3-4.6); Glomerular Filtration Rate 24.5 mL/min (90-130); Glucose 163 mg/dL (65-115); Iron 38 ug/dL (59-158); Osmolality Calculated 296 mOsm/kg (285-295); Percent Saturation 13.6 % (20-50); Sodium 135 mmol/L (136-145); Total Bilirubin 0.2 mg/dL (0.15-1.2); Total Iron Binding Capacity 279 mcg/dl; Total Protein 5.6 g/dL (6.6-8.7); Unsaturated Iron Binding 241 ug/dL (112-347)
[2024-06-21 15:13] LABS: Vitamin B12 600 pg/mL (232-1245)
[2024-06-21 15:25] LABS: Folate Level 9.8 ng/mL (4.5-32.2)
[2024-06-23] MEDS: iron sucrose 200 MG in sodium chloride 0.9% (100 ml) 100 ML IV (15:23)
[2024-06-23] MEDS: sodium chloride 0.9% 1,000 ML 999 ML IV (15:28)
[2024-06-30] MEDS: sodium chloride 0.9% 1,000 ML 999 ML IV (15:04)
[2024-06-30] MEDS: iron sucrose 200 MG in sodium chloride 0.9% (100 ml) 100 ML 300 MG IV (15:33)
[2024-07-07 14:32] VITALS: BP 115/74; PULSE 80; RESP 17; TEMP 36.8; O2SAT 95
[2024-07-07] MEDS: iron sucrose 200 MG in sodium chloride 0.9% (100 ml) 100 ML IV (15:31)
[2024-07-07] MEDS: sodium chloride 0.9% 250 ML 75 ML IV (15:31)
[2024-07-14] MEDS: sodium chloride 0.9% 1,000 ML 999 ML IV (15:18)
[2024-07-14] MEDS: iron sucrose 200 MG in sodium chloride 0.9% (100 ml) 100 ML 75 MG IV (15:19)
[2024-07-14 17:10] VITALS: BP 124/78; PULSE 88; RESP 18; TEMP 36.6; O2SAT 98
== END 2024-07-16 23:59 | disposition home or self-care (01) ==
PROVIDERS: Internal Medicine Medical Oncology; Absent Provider Student in an Organized Health Care Education/Training Program; PCP Nurse Practitioner Family; Visit Provider Student in an Organized Health Care Education/Training Program
DX: Z53.9 Procedure and treatment not carried out, unspecified reason; D50.9 Iron deficiency anemia, unspecified; Z79.899 Other long term (current) drug therapy
CPT/HCPCS: 36415; 80053; 82607; 82728; 82746; 83540; 83550; 85025; 96360; 96361; 96365; 99214; J1756; J7030; J7040; J7050

== ENCOUNTER 2024-08-11 14:00 | Oncology outpatient (recurring) (ONCR) | payer OTHER, MEDICAID, SELFPAY ==
[2024-07-22 08:49] VITALS: BP 146/93; PULSE 79; RESP 16; TEMP 36.9; O2SAT 96
[2024-07-22] MEDS: sodium chloride 0.9% 1,000 ML 999 ML IV (09:03)
[2024-07-22] MEDS: iron sucrose 200 MG in sodium chloride 0.9% (100 ml) 100 ML 220 MG IV (09:10)
[2024-07-28] MEDS: sodium chloride 0.9% 1,000 ML 999 ML IV (14:23)
[2024-07-28 15:40] VITALS: BP 124/78; PULSE 78; RESP 18; TEMP 36.1; O2SAT 98
[2024-07-28 16:10] VITALS: BP 124/76; PULSE 82; RESP 18; TEMP 36.6; O2SAT 98
[2024-08-04] MEDS: sodium chloride 0.9% 1,000 ML 999 ML IV (14:37)
[2024-08-04 15:40] VITALS: BP 109/68; PULSE 78; RESP 17; TEMP 36.1; O2SAT 98
[2024-08-11] MEDS: sodium chloride 0.9% 1,000 ML 999 ML IV (14:20)
== END 2024-08-15 23:59 | disposition home or self-care (01) ==
PROVIDERS: Absent Provider Student in an Organized Health Care Education/Training Program; PCP Nurse Practitioner Family; Visit Provider Student in an Organized Health Care Education/Training Program
DX: Z53.9 Procedure and treatment not carried out, unspecified reason; E86.0 Dehydration; Z79.899 Other long term (current) drug therapy
CPT/HCPCS: 11721; 96360; 96361; 96365; J1756; J7030

== ENCOUNTER 2024-08-16 14:24 | Outpatient (CLI) | payer OTHER, MEDICAID, SELFPAY ==
[2024-08-16 15:28] LABS: Albumin Level 4.0 g/dL (3.5-5.2); Anion Gap 18.1 (5-19); Blood Urea Nitrogen 39 mg/dL (6-20); Calcium 9.1 mg/dL (8.5-10.5); Carbon Dioxide 20 mmol/L (22-29); Chloride 106 mmol/L (98-107); Glucose 103 mg/dL (65-115); Potassium 5.1 mmol/L (3.5-5.1); Sodium 139 mmol/L (136-145)
[2024-08-16 15:31] LABS: Calcium 9.3 mg/dL (8.5-10.5)
== END 2024-08-16 14:25 | disposition home or self-care (01) ==
LOC: LAB 14:28
PROVIDERS: PCP Nurse Practitioner Family; Visit Provider Internal Medicine Nephrology
DX: N18.4 Chronic kidney disease, stage 4 (severe) (principal)
CPT/HCPCS: 36415; 80069; 82306; 82310; 83970

== ENCOUNTER → 2024-09-13 13:48 | Outpatient (BNVA) | payer OTHER, MEDICAID, SELFPAY | PROVIDERS: PCP Nurse Practitioner Family; Visit Provider Student in an Organized Health Care Education/Training Program | DX: A31.0 Pulmonary mycobacterial infection (principal); K52.9 Noninfective gastroenteritis and colitis, unspecified | CPT/HCPCS: 99204 ==

== ENCOUNTER 2024-09-15 12:26 | Outpatient (CLI) | payer OTHER, MEDICAID, SELFPAY | END 2024-09-15 12:27 | disposition home or self-care (01) | PROVIDERS: PCP Nurse Practitioner Family; Visit Provider Nurse Practitioner Family | DX: A31.0 Pulmonary mycobacterial infection (principal) | CPT/HCPCS: 87015; 87116; 87206; 87801 ==

== ENCOUNTER 2024-09-15 14:15 | Oncology outpatient (recurring) (ONCR) | payer OTHER, MEDICAID, SELFPAY ==
[2024-08-18 14:11] VITALS: BP 93/61; PULSE 63; RESP 18; TEMP 37.2
[2024-08-18 15:29] VITALS: BP 98/60; PULSE 79; RESP 18; TEMP 36.1; O2SAT 94
[2024-09-01 14:08] VITALS: BP 118/78; PULSE 94; RESP 18; TEMP 36.9; O2SAT 92
[2024-09-09 10:27] VITALS: BP 120/82; PULSE 81; TEMP 36.5; O2SAT 98
--- NOTE | 2024-09-15 14:15 | CTR_ITS ---
PROCEDURE INFORMATION: Exam: CT Chest Without Contrast; Diagnostic Exam date and time: 09/15/2024 1:29 PM Age: 58 years old Clinical indication: Abnormal findings; Abnormal radiologic exam of lung or chest; Prior surgery; Surgery date: 6+ months; Surgery type: Inspire device; Additional info: Pulmonary mac f/up, follow up pulmonary mac, growing cavity on last check TECHNIQUE: Imaging protocol: Diagnostic computed tomography of the chest without contrast. Radiation optimization: All CT scans at this facility use at least one of these dose optimization techniques: automated exposure control; mA and/or kV adjustment per patient size (includes targeted exams where dose is matched to clinical indication); or iterative reconstruction. COMPARISON: CT chest wo con [id number] 11/20/2023 10:00 AM RADIATION DOSE METRICS: Total DLP (mGy-cm): 407.73 FINDINGS: Tubes, catheters and devices: Cardiac pacemaker on the right with leads in satisfactory position. Lungs: There is a large cavitary mass lying in the left lung apex that measures about 10 cm in diameter. The cavity demonstrates a thick irregular, nodular capsule and is filled with air. There are numerous nodules scattered throughout much of the left lung. These nodules are small with the largest measuring 2 cm in diameter within the left lower lobe. Both lungs demonstrate diffuse centrilobular and paraseptal emphysematous changes. Pleural spaces: Unremarkable. No pneumothorax. No pleural effusion. Heart: Unremarkable. No cardiomegaly. No pericardial effusion. Coronary arteries: Coronary artery calcifications are noted. Lymph nodes: Unremarkable. No enlarged lymph nodes. Vasculature: Unremarkable. No aortic aneurysm. Kidneys: Upper abdominal images demonstrate polycystic kidneys. Bones/joints: Unremarkable. No acute fracture. Soft tissues: Unremarkable. CT/CT chest wo con [id number] IMPRESSION: Left-sided nodular lung disease has worsened significantly since 11/20/2023. Most likely indicates worsening SAMIRA infection COMMENTS: The presence of pulmonary emphysema on CT is an independent risk factor for lung cancer. In the absence of a history or active diagnosis of lung cancer, it is recommended that this patient with emphysema be evaluated for enrollment in a low dose CT lung cancer screening program.
== END 2024-09-15 23:59 | disposition home or self-care (01) ==
LOC: RAD 09-16
PROVIDERS: Absent Provider Student in an Organized Health Care Education/Training Program; PCP Nurse Practitioner Family; Visit Provider Nurse Practitioner Family
DX: A31.0 Pulmonary mycobacterial infection (principal)
CPT/HCPCS: 71250; 96360; J7030

== ENCOUNTER 2024-09-28 14:32 | Outpatient (CLI) | payer MEDICARE, MEDICAID, SELFPAY ==
--- NOTE | 2024-09-28 14:40 | MR_ITS ---
WS: [id number] MRI THORACIC SPINE without contrast HISTORY: SPINAL STENOSIS,LUMBAR REGION W/O NEUROGENIC CLAUDICATION COMPARISON: None available. TECHNIQUE: Multiplanar sequences are performed in sagittal and axial planes. Very mild straightening of the normal thoracic kyphosis. No acute fractures or marrow edema. Normal signal within the cord. There is no cord atrophy or enlargement. Conus tapers normally at the T12 level. No central canal stenosis or disc protrusions. Mild to moderate facet joint arthropathy throughout the thoracic spine. Most significant ligamentum flavum and facet joint arthropathy begins at the T7-8 level. Mild facet joint arthritis encroaching upon the thecal sac at T10-11 and T11-12. Paraspinal soft tissues are negative. Patient has extensive bullous disease and scarring at the lung apices greatest on the LEFT. This has been previously described. Bilateral polycystic kidney disease. MR/MR thoracic spin wo con* [id number] IMPRESSION: 1. Normal signal within the cervical cord. 2. No thoracic spine fractures. 3. No central canal stenosis in the thoracic spine. 4. Facet joint arthritis most significant at T10-11 and T11-12 with encroachme nt upon the thecal sac.
== END 2024-09-28 14:33 | disposition home or self-care (01) ==
LOC: RAD 14:33
PROVIDERS: PCP Nurse Practitioner Family; Visit Provider Anesthesiology
DX: M48.061 Spinal stenosis, lumbar region without neurogenic claudication (principal); M51.17 Intervertebral disc disorders with radiculopathy, lumbosacral region; M47.814 Spondylosis without myelopathy or radiculopathy, thoracic region; M40.294 Other kyphosis, thoracic region
CPT/HCPCS: 72146

== ENCOUNTER 2024-09-30 08:15 | Outpatient (CLI) | payer OTHER, MEDICAID, SELFPAY | END 2024-09-30 08:16 | disposition home or self-care (01) | LOC: RAD 10-12 08:59 | PROVIDERS: PCP Nurse Practitioner Family; Visit Provider Anesthesiology | DX: L40.0 Psoriasis vulgaris (principal); L82.1 Other seborrheic keratosis; D18.01 Hemangioma of skin and subcutaneous tissue; L29.89 Other pruritus; L53.8 Other specified erythematous conditions; R20.8 Other disturbances of skin sensation | CPT/HCPCS: 11900; 99214 ==

== ENCOUNTER 2024-09-30 14:15 | Oncology outpatient (recurring) (ONCR) | payer MEDICARE, MEDICAID, SELFPAY ==
[2024-09-20 13:20] LABS: Hematocrit 42.9 % (37-53); Hemoglobin 14.00 g/dL (11.27-16.99); Mean Corpuscular HGB Conc 32.6 g/dL (30-55); Mean Corpuscular Hemoglobin 32.0 pg (27-33); Mean Corpuscular Volume 97.9 fl (82-101); Nucleated Red Blood Cells % 0 %; Platelet Count 239 10^3/cmm (157-399); Red Blood Count 4.38 10^6/uL (3.85-5.65); White Blood Count 11.01 10^3/uL (3.29-11.43)
[2024-09-20 13:41] LABS: Alanine Aminotransferase 17 U/L (0-41); Albumin Level 3.9 g/dL (3.5-5.2); Alkaline Phosphatase 39 U/L (40-130); Anion Gap 16.7 (5-19); Aspartate Amino Transferase 17 U/L (0-40); Blood Urea Nitrogen 37 mg/dL (6-20); Calcium 8.6 mg/dL (8.5-10.5); Carbon Dioxide 20 mmol/L (22-29); Chloride 107 mmol/L (98-107); Creatinine Clr Calc Pharmacy 40.2506; Globulin 1.8 g/dL (1.3-4.6); Glucose 185 mg/dL (65-115); Osmolality Calculated 301 mOsm/kg (285-295); Potassium 4.7 mmol/L (3.5-5.1); Sodium 139 mmol/L (136-145); Total Protein 5.7 g/dL (6.6-8.7)
[2024-09-20 14:32] LABS: Ferritin 109 ng/mL (30-400); Iron 126 ug/dL (59-158); Total Iron Binding Capacity 202 mcg/dl; Unsaturated Iron Binding 76 ug/dL (112-347)
--- NOTE | 2024-09-30 13:48 | MR_ITS ---
WS: [id number] MRI LUMBAR SPINE NONCONTRAST HISTORY: SPINAL STENOSIS LUMBAR REGION COMPARISON: 06/29/2021 TECHNIQUE: Sagittal and axial multisequence imaging is submitted. C3, C4 and C5 anterolisthesis by 3 mm. Straightening of the normal lumbar lordosis. L2 anterolisthesis by 6 mm similar to the prior study. Progression of disc space narrowing at L2-3. There is bone upon bone in the anterior L2-3 disc base. No fracture. Disc spaces are all desiccated. Conus terminates normally at L1. L1-L2: Normal. L2-L3: Unroofing of the disc secondary to anterolisthesis of L2. Asymmetric disc bulging, greatest to the RIGHT. Narrowing of the thecal sac, greatest involving the RIGHT subarticular recess. Mild central, subarticular recess and foraminal stenosis. Most significant encroachment upon the RIGHT traversing L3 nerve root. L3-L4: Mild annular disc bulging. Mild facet and ligamentum flavum hypertrophy. Mild subarticular recess encroachment. Very slight narrowing of the RIGHT foramen. L4-L5: Mild annular disc bulging with moderate ligamentum flavum and facet arthritis. Mild central, subarticular recess and moderate foraminal stenosis. L5-S1: Diffuse disc bulging with facet joint arthritis. Disc osteophyte complexes bilaterally in the foramina. Moderate to severe bilateral foraminal stenosis, LEFT greater than RIGHT. Bilateral polycystic kidney disease. MR/MR lumbar spine wo con* [id number] IMPRESSION: 1. L2 anterolisthesis 6 mm. Not significantly progressed since the prior study . 2. Progression of degenerative disc space narrowing at L2-3. 3. L2-3: Mild central, subarticular recess and foraminal stenosis. 4. L4-5: Mild central, subarticular recess and moderate foraminal stenosis. Mi ld progression of foraminal stenosis. 5. L5-S1: Moderate to severe bilateral foraminal stenosis due to disc osteophy te and facet disease, LEFT greater than RIGHT. Progression of foraminal stenosi s since the prior study.
--- NOTE | 2024-09-30 13:49 | USCV_ITS ---
Arleis Hardin Age: 58 Gender: M : 1965 Exam Date: 09/30/2024 14:43 Ordering Phys: Ernestine Dumont APRN RETORT ENGINEER-BC Technologist: SEAN Exam Location: [facility] [place] Indication: Dyspnea on exertion BP: 136 / 87 HR: 71 Rhythm: Sinus Technical Quality: Adequate MEASUREMENTS (Male / Female) Normal Values 2D ECHO LV Diastolic Diameter PLAX 5.0 cm 4.2 - 5.9 / 3.9 - 5.3 cm IVS Diastolic Thickness 0.9 cm 0.6 - 1.0 / 0.6 - 0.9 cm IVS Systolic Thickness 1.7 cm LVPW Diastolic Thickness 1.0 cm 0.6 - 1.0 / 0.6 - 0.9 cm LVPW Systolic Thickness 1.5 cm LVOT Diameter 2.1 cm LV Ejection Fraction 2D Teich 57.5 % LV Ejection Fraction MOD 4C 58.3 % LV Ejection Fraction MOD 2C 75.3 % LV Ejection Fraction 2C AL 74.3 % LA Diameter 2.9 cm RA Systolic Volume 4C AL 28.9 ml RA Systolic Volume 4C MOD 26.9 ml LA Sys Volume AL 36.9 cm cubed LA Sys Volume Index AL 17.7 cm cubed/m squared Aorta at Sinotubular Diameter 2.4 cm IVC Diameter 1.6 cm M-MODE LA Ao Ratio MM 1.5 AV Cusp Separation MM 2.0 cm DOPPLER AV Peak Velocity 123.0 cm/s LVOT Peak Velocity 105.0 cm/s AV Area Cont Eq vti 3.0 cm squared AV Area Cont Eq pk 2.9 cm squared MV Peak Velocity 82.0 cm/s MV Area PHT 4.3 cm squared Mitral E to A Ratio 0.9 TR Peak Velocity 111.0 cm/s TR Peak Gradient 4.9 mmHg TV Peak E Velocity 59.0 cm/s PV Peak Velocity 82.0 cm/s FINDINGS Left Ventricle Normal left ventricular size, systolic function and wall thickness, with no regional wall motion abnormalities. Left ventricular ejection fraction is 58 %. Normal diastolic function. Right Ventricle Normal right ventricular size and systolic function. Right Atrium Normal right atrial size. Left Atrium Normal left atrial size. Mitral Valve Structurally normal mitral valve. No mitral valve stenosis. No mitral valve regurgitation. Aortic Valve No aortic valve stenosis. No aortic valve regurgitation. Tricuspid Valve Structurally normal tricuspid valve. No tricuspid valve stenosis. No tricuspid valve regurgitation. Pulmonic Valve Structurally normal pulmonic valve. No pulmonary valve stenosis. No pulmonary valve regurgitation. Pericardium No pericardial effusion. Aorta Normal size aortic root and proximal ascending aorta. IVC Normal inferior vena cava. CONCLUSIONS 1. Normal left ventricular and right ventricular size and systolic function 2. Normal left ventricular diastolic function 3. Unable to assess pulmonary pressure due to lack of tricuspid valve regurgitation jet. 4. No significant valvular abnormalities. Fidel Leung MD, FACC (Electronically Signed) Final Date: 01 October 2024 14:47 S
== END 2024-10-16 23:59 | disposition home or self-care (01) ==
LOC: RAD 10-01 00:01 → ONCMED 10-03 09:12
PROVIDERS: Nurse Practitioner Family; PCP Nurse Practitioner Family; Visit Provider Internal Medicine Medical Oncology
DX: M48.061 Spinal stenosis, lumbar region without neurogenic claudication; R06.09 Other forms of dyspnea; M51.369 Other intervertebral disc degeneration, lumbar region without mention of lumbar back pain or lower extremity pain; M43.16 Spondylolisthesis, lumbar region; M48.07 Spinal stenosis, lumbosacral region; M25.78 Osteophyte, vertebrae; M47.897 Other spondylosis, lumbosacral region; M47.896 Other spondylosis, lumbar region; M24.28 Disorder of ligament, vertebrae; M51.379 Other intervertebral disc degeneration, lumbosacral region without mention of lumbar back pain or lower extremity pain; N28.1 Cyst of kidney, acquired; Z53.9 Procedure and treatment not carried out, unspecified reason
CPT/HCPCS: 36415; 72148; 80053; 82728; 83540; 83550; 85025; 93306; 99214

== ENCOUNTER → 2024-10-11 13:07 | Outpatient (BNVA) | payer OTHER, MEDICAID, SELFPAY | PROVIDERS: PCP Nurse Practitioner Family; Visit Provider Orthopaedic Surgery | DX: M47.812 Spondylosis without myelopathy or radiculopathy, cervical region (principal); M43.16 Spondylolisthesis, lumbar region; Z01.818 Encounter for other preprocedural examination; Z09 Encounter for follow-up examination after completed treatment for conditions other than malignant neoplasm | CPT/HCPCS: 36415; 72050; 72110; 80053; 81001; 83036; 85025; 99204 ==

== ENCOUNTER → 2024-10-19 13:31 | Outpatient (BNVA) | payer MEDICARE, MEDICAID, SELFPAY | PROVIDERS: PCP Nurse Practitioner Family; Visit Provider Podiatrist Foot & Ankle Surgery | DX: E11.42 Type 2 diabetes mellitus with diabetic polyneuropathy (principal); B35.1 Tinea unguium; I73.9 Peripheral vascular disease, unspecified; G62.9 Polyneuropathy, unspecified | CPT/HCPCS: 11721 ==

== ENCOUNTER → 2024-11-07 15:41 | Outpatient (BNVA) | payer MEDICARE, MEDICAID, SELFPAY | PROVIDERS: PCP Nurse Practitioner Family; Visit Provider Nurse Practitioner Family | DX: R91.1 Solitary pulmonary nodule (principal); J44.1 Chronic obstructive pulmonary disease with (acute) exacerbation; J18.9 Pneumonia, unspecified organism | CPT/HCPCS: 71046 ==

== ENCOUNTER → 2024-11-08 12:56 | Outpatient (BNVA) | payer MEDICARE, MEDICAID, SELFPAY | PROVIDERS: PCP Nurse Practitioner Family; Visit Provider Internal Medicine | DX: J44.9 Chronic obstructive pulmonary disease, unspecified (principal); G47.33 Obstructive sleep apnea (adult) (pediatric); M06.9 Rheumatoid arthritis, unspecified; F17.219 Nicotine dependence, cigarettes, with unspecified nicotine-induced disorders; Z71.6 Tobacco abuse counseling | CPT/HCPCS: 36415; 85025; 99215; 99406 ==

== ENCOUNTER 2024-11-14 08:44 | Oncology outpatient (recurring) (ONCR) | payer MEDICARE, MEDICAID, SELFPAY | END 2024-11-15 23:59 | disposition home or self-care (01) | LOC: RAD 08:48 → ONCMED 09:13 | PROVIDERS: Absent Provider Nurse Practitioner Family; PCP Nurse Practitioner Family; Visit Provider Internal Medicine Medical Oncology | DX: M48.061 Spinal stenosis, lumbar region without neurogenic claudication (principal); R06.09 Other forms of dyspnea; M51.369 Other intervertebral disc degeneration, lumbar region without mention of lumbar back pain or lower extremity pain; M43.16 Spondylolisthesis, lumbar region; M48.07 Spinal stenosis, lumbosacral region; M25.78 Osteophyte, vertebrae; M47.897 Other spondylosis, lumbosacral region; M47.896 Other spondylosis, lumbar region; M24.28 Disorder of ligament, vertebrae; M51.379 Other intervertebral disc degeneration, lumbosacral region without mention of lumbar back pain or lower extremity pain; N28.1 Cyst of kidney, acquired; Z53.9 Procedure and treatment not carried out, unspecified reason; D50.9 Iron deficiency anemia, unspecified; Q61.3 Polycystic kidney, unspecified; R79.89 Other specified abnormal findings of blood chemistry; M79.7 Fibromyalgia; M54.12 Radiculopathy, cervical region ==

== ENCOUNTER → 2024-11-29 09:15 | Outpatient (BNVA) | payer MEDICARE, MEDICAID, SELFPAY | PROVIDERS: PCP Nurse Practitioner Family; Visit Provider Podiatrist Foot & Ankle Surgery | DX: M25.572 Pain in left ankle and joints of left foot (principal); B35.1 Tinea unguium; I73.9 Peripheral vascular disease, unspecified; E11.42 Type 2 diabetes mellitus with diabetic polyneuropathy; G62.9 Polyneuropathy, unspecified; M76.822 Posterior tibial tendinitis, left leg | CPT/HCPCS: 73610 ==

== ENCOUNTER 2024-11-29 10:25 | Outpatient (CLI) | payer MEDICARE, MEDICAID, SELFPAY | END 2024-11-29 10:26 | disposition home or self-care (01) | LOC: SPT 10:26 | PROVIDERS: PCP Nurse Practitioner Family; Visit Provider Podiatrist Foot & Ankle Surgery | DX: Z46.89 Encounter for fitting and adjustment of other specified devices (principal); M25.572 Pain in left ankle and joints of left foot | CPT/HCPCS: L4361 ==

== ENCOUNTER 2024-11-30 14:16 | Oncology outpatient (recurring) (ONCR) | payer MEDICARE, MEDICAID, SELFPAY ==
--- NOTE | 2024-11-30 14:30 | MR_ITS ---
WS: [id number] MRI CERVICAL SPINE NONCONTRAST TECHNIQUE: Sagittal T1, T2 and STIR imaging. Axial T2, gradient, and fiesta imaging. Limited study due to MRI safety restrictions for inspire device CLINICAL INFORMATION: Neck pain COMPARISON: MRI 2021 FINDINGS: Straightening of the normal cervical lordosis. Slight anterolisthesis C5 on C6. C2-C3: Mild facet arthropathy. Mild RIGHT bony foraminal narrowing. C3-C4: Disc osteophyte complex with moderate central canal stenosis progressed compared to previous. Indentation of the cervical cord. Moderate LEFT and mild RIGHT bony foraminal narrowing. Moderate facet arthropathy. C4-C5: Disc osteophyte complex with endplate ridging. Uncovertebral joint hypertrophy. Moderate facet arthropathy. Mild bilateral bony foraminal narrowing. C5-C6: Grade 1 anterolisthesis has progressed. Disc osteophyte complex with endplate ridging. Mild LEFT greater than RIGHT bony foraminal narrowing. Mild facet arthropathy. C6-C7: Disc osteophyte complex with endplate ridging. Mild bilateral bony foraminal narrowing LEFT greater than RIGHT. C7-T1: Mild LEFT greater than RIGHT bony foraminal narrowing. Spinal canal is patent. Visualized brain stem structures: Normal. Prevertebral soft tissues: Normal. Retention cysts in the sphenoid sinus. MR/MR cervical spin wo con* [id number] IMPRESSION: 1. Straightening of the normal cervical lordosis. 2. Disc space narrowing throughout the cervical spine has progressed. 3. Moderate central canal stenosis C3-4 has progressed with indentation on the cervical cord. Moderate LEFT foraminal narrowing at this level. 4. Grade 1 anterolisthesis C5 on C6 is new compared to previous. 5. Otherwise mild bony foraminal narrowing described above.
== END 2024-12-16 23:59 | disposition home or self-care (01) ==
LOC: ONCMED 14:17
PROVIDERS: PCP Nurse Practitioner Family; Visit Provider Internal Medicine Medical Oncology
DX: M47.812 Spondylosis without myelopathy or radiculopathy, cervical region (principal); M48.02 Spinal stenosis, cervical region; R93.7 Abnormal findings on diagnostic imaging of other parts of musculoskeletal system; M47.892 Other spondylosis, cervical region; M25.78 Osteophyte, vertebrae; M89.38 Hypertrophy of bone, other site; J34.1 Cyst and mucocele of nose and nasal sinus
CPT/HCPCS: 72141

== ENCOUNTER → 2024-12-01 11:17 | Outpatient (BNVA) | payer MEDICARE, MEDICAID, SELFPAY | PROVIDERS: PCP Nurse Practitioner Family; Visit Provider Nurse Practitioner Family | DX: N18.9 Chronic kidney disease, unspecified (principal); J44.1 Chronic obstructive pulmonary disease with (acute) exacerbation; J18.9 Pneumonia, unspecified organism; R91.8 Other nonspecific abnormal finding of lung field | CPT/HCPCS: 71046; 80069; 82310; 83970; 85025 ==

== ENCOUNTER 2024-12-05 20:29 | Inpatient (IN) | payer OTHER, MEDICAID, SELFPAY ==
--- OUTSIDE RECORDS SUMMARY | 2024-12-01 11:28 | XMS_ITS | Encounter Summary ---
Author Organization [facility] Healthcare Address [address] [place] [address] Care Team Providers Care Cycle Manager Name Role Phone Elis Keller RN Unavailable Chano Parks MD Unavailable [phone] Sarah Kay MD Unavailable [phone] Pat Edwards MD Unavailable [phone] Datar, Jose Guadalupe Sosa MD Unavailable Gilles Estrella MD Unavailable Laverne Logan RN Unavailable Lorie Mccormack STORE GIFT WRAP ASSOCIATE Primary Care Provider + Henrietta Schneider MD Unavailable Acacia Wells NP Unavailable Delmy Hagan Unavailable Unavailable Encounter Details Date Type Department Care Team (Latest Contact Info) Description 12/01/2024 11:28 AM CDT - 12/01/2024 11:59 PM CDT Hospital Encounter [facility] [address] [place] [address] Discharge Disposition: Discharge to home or self care Social History Tobacco Use Types Packs/Day Years Used Date Smoking Tobacco: Former Cigarettes 1.5 20 0 05/12/2003 - 05/12/2023 Smokeless Tobacco: Never [facility] Utilities Answer Date Recorded In the past 12 months has th e electric, gas, oil, or water company threatened to shut off services in your home? No 10/09/2023 Social Connection and Isolation Panel Answer Date Recorded In a typical week, how many times do you talk on the phone with family, friends, or neighbors? More than three times a week 10/09/2023 How often do you get togethe r with friends or relatives? More than three times a week 10/09/2023 How often do you attend chur ch or gnosticism services? Never 10/09/2023 Do you belong to any clubs o r organizations such as muslim groups, unions, fraternal or athletic groups, or school groups? No 10/09/2023 How often do you attend meet ings of the clubs or organizations you belong to? Never 10/09/2023 Are you , , di vorced, , never , or living with a partner? 10/09/2023 AUDIT-C Answer Date Recorded Q1: How often do you have a drink containing alcohol? Never 09/09/2023 Q2: How many drinks containi ng alcohol do you have on a typical day when you are drinking? Patient does not drink Q3: How often do you have si x or more drinks on one occasion? Never 09/09/2023 Overall Financial Resource Strain (CARDIA) Answe r Date Recorded How hard is it for you to pa y for the very basics like food, housing, medical care, and heating? Not very hard 10/09/2023 Hunger Vital Sign Answer Date Recorded Within the past 12 months, y ou worried that your food would run out before you got the money to buy more. Never true 10/09/19 24 Within the past 12 months, t he food you bought just didn't last and you didn't have money to get more. Never true 10/09/2023 PRAPARE - Transportation Answer Date Re corded In the past 12 months, has l ack of transportation kept you from medical appointments or from getting medications? No 09/17 In the past 12 months, has l ack of transportation kept you from meetings, work, or from getting things needed for daily living? No 10/09/2023 Housing Stability Vital Sign Answer Miguel e Recorded In the last 12 months, was t here a time when you were not able to pay the mortgage or rent on time? No 10/09/2023 In the past 12 months, how m any times have you moved where you were living? 1 10/09/2023 At any time in the past 12 m [facility], were you homeless or living in a nursing home (including now)? No 10/09/2023 Personal Safety Answer Date Recorded Have you ever been in or are you currently in a harmful physical or emotional relationship or is someone making you feel afraid or unsafe? Denies 09/09/2023 Sex and Gender Information Value Date Recorded Sex Assigned at Not on file Legal Sex Male 10:48 AM CDT Gender Identity Not on file Sexual Orientation Not on file documented as of this encounter Medications at Time of Discharge Actemra 162 mg/0.9 mL syringe Inject 162mg (0.9ml) UNDER THE SKIN EVERY SEVEN DAYS 11/10/2023 albuterol 2.5 mg /3 mL (0.083 %) nebulizer solutionIndication s:Chronic Obstructive Pulmonary Disease Take 3 mL (2.5 mg total) by nebulization every 4 (four) hours as needed for wheezing or shortness of breath 09/17/2020 amoxicillin-clavul anate (AUGMENTIN) 500-125 mg per tablet Take 1 tablet by mouth 2 (two) times a day 09/19/2024 Arikayce 590 mg/8.4 mL nebulizer suspensionIndicati ons:refractory Mycobacterium avium complex pulmonary disease Take 8.4 mL (590 mg total) by nebulization every evening 09/26/2022 aspirin 81 mg enteric coated tabletIndications: Myocardial Reinfarction Prevention Take 1 tablet (81 mg total) by mouth every evening atovaquone (MEPRON) suspension 750 mg/5 mLIndications:Othe r (complete free text reason below),Prevention for pneumonia Take 5 mL (750 mg total) by mouth every evening 01/08/2021 azithromycin (ZITHROMAX) 500 mg tabletIndications: Mycobacteriosis Take 1 tablet (500 mg total) by mouth every evening blood glucose diagnostic strip DX: 250.00 DM Non-Insulin Dep Patient checks blood sugar 7 day(s) per week and 2 time(s) per day. Patient/Caregiver has successfully completed training or is scheduled: yes 06/04/2011 blood-glucose meter misc DX: 250.00 DM Non-Insulin Dep Patient checks blood sugar 7 day(s) per week and 2 time(s) per day. Patient/Caregiver has successfully completed training or is scheduled: yes 06/04/2011 brexpiprazole (REXULTI) 2 mg tablet Take 1 tablet (2 mg total) by mouth daily Breztri Aerosphere 160-9-4.8 mcg/actuation HFA aerosol inhalerIndications :Bronchospasm Prevention with COPD Inhale 2 puffs 2 (two) times a day calcium carbonate-vit D3-min 600 mg-10 mcg (400 unit) tablet Take 1 tablet by mouth cholecalciferol (VITAMIN D-3) 2000 unit tabletIndications: Vitamin D Deficiency Take 1 tablet (2,000 Units total) by mouth daily citalopram (CeleXA) 40 mg tabletIndications: major depressive disorder Take 1 tablet (40 mg total) by mouth every morning 04/13/2023 cyanocobalamin (Vitamin B-12) 2,500 mcg tablet, sublingualIndicati ons:Prevention of Vitamin B12 Deficiency Take 1 tablet (2,500 mcg total) by mouth every evening cyclobenzaprine (FLEXERIL) 5 mg tabletIndications: Muscle Spasm Take 1 tablet (5 mg total) by mouth 3 (three) times a day as needed for muscle spasms ethambutoL (MYAMBUTOL) 400 mg tabletIndications: Mycobacteriosis Take 2.5 tablets (1,000 mg total) by mouth every evening ezetimibe (ZETIA) 10 mg tabletIndications: hypercholesterolem ia Take 1 tablet (10 mg total) by mouth nightly 04/13/2023 gabapentin (NEURONTIN) 800 mg tablet Take 0.5 tablets (400 mg total) by mouth 3 (three) times a day hydrOXYchloroQUINE (PLAQUENIL) 200 mg tablet Take 1 tablet (200 mg total) by mouth 2 (two) times a day 60 tablet 1 09/28/2020 ketoconazole (NIZORAL) 2 % shampoo Apply topically once a week 10/27/2023 lancets misc DX: 250.00 DM Non-Insulin Dep Patient checks blood sugar 7 day(s) per week and 2 time(s) per day. Patient/Caregiver has successfully completed training or is scheduled: yes 06/04/2011 levocetirizine (XYZAL) 5 mg tablet Take 1 tablet (5 mg total) by mouth daily 07/13/2024 lisinopriL (PRINIVIL,ZESTRIL) 20 mg tablet Take 1 tablet (20 mg total) by mouth 2 (two) times a day 04/15/2023 Lokelma 10 gram packet 09/19/2024 metoprolol tartrate (LOPRESSOR) 25 mg immediate release tablet Take 1 tablet (25 mg total) by mouth 2 (two) times a day 07/12/2024 metoprolol XL (TOPROL-XL) 50 mg extended release tablet Take 1 tablet (50 mg total) by mouth daily 30 tablet 11 04/15/2023 oxyCODONE-acetamin ophen (PERCOCET) 5-325 mg per tabletIndications: Pain Take 1 tablet by mouth every 4 (four) hours as needed for pain 04/24/2023 prasugreL (EFFIENT) tabletIndications: Myocardial Reinfarction Prevention Take 1 tablet (10 mg total) by mouth every evening predniSONE (DELTASONE) 20 mg tablet Take 1 tablet (20 mg) by mouth daily 08/31/2023 rifAMPin (RIFADIN) 300 mg capsuleIndications :Mycobacteriosis Take 2 capsules (600 mg total) by mouth licensed mental health professional before breakfast sodium bicarbonate 650 mg tablet Take 1 tablet (650 mg total) by mouth in the morning and 1 tablet (650 mg total) in the evening. Space Chamber spacer USE WITH ALBUTEROL INHALER 09/17/2020 Stiolto Respimat 2.5-2.5 mcg/actuation inhaler INHALE 2 PUFFS BY MOUTH ONCE DAILY 09/16/2024 temazepam (RESTORIL) 30 mg capsuleIndications :Insomnia Take 1 capsule (30 mg total) by mouth nightly as needed for sleep varenicline tartrate (CHANTIX PREMA) 0.5 mg (11)- 1 mg (42) tabletIndications: Smoking Cessation Take 1 tablet by mouth licensed mental health professional before breakfast 02/04/2023 documented as of this encounter Discharge Disposition Disposition Code Departure Means Destination Discharge to home or self care documented in this encounter Plan of Treatment Not on file documented as of this encounter Procedures Procedure Name Priority Date/Time Associated Diagnosis Comments CT BODY OUTSIDE REFERENCE Routine 12/01/2024 11:28 AM CDT documented in this encounter Results * CT Body Outside Reference (12/01/2024 11:28 AM CDT) Impressions [facility] - 12/01/2024 11:28 AM CDT These images are for Reference purposes only and have not been reviewed by [facility] Radiology. There will be no report generated by a [facility] Radiologist. Narrative [facility] - 12/01/2024 11:28 AM CDT EXAMINATION: Images For Reference Purposes Only us Champ Danielle MD IMG CT PROCEDURES Final Resul t [facility] documented in this encounter Visit Diagnoses Not on filedocumented in this encounter Care Teams Cycle Manager Relationship Specialty Start Date End Date Lorie Mccormack NP [address] [place] [address] PCP - General Family Medicine 09/11/23 Elis Keller, RICHARD [address] [facility] [address] [place] [address] Grocery Clerk Stocking 07/23/23 Chano Parks MD [address] [facility] [address] [place] [address] Referring Physician Transplant 07/23/23 Sarah Kay MD [address] [place] [address] Referring Physician Cardiovascular Disease 07/24/23 Pat Edwards MD [address] [facility] [place] [address] Internal Medicine 07/24/23 Datar, Jose Guadalupe Sosa MD [address] [place], [place] [id number] Internal Medicine 07/24/23 Gilles Estrella MD [address] [place] [address] Churn Driller Transplant 09/03/23 Laverne Logan, RN [address] [address] Heart Failure Coordinator Grocery Clerk Stocking 09/03/23 Henrietta Schneider MD [address] [address] Nephrology 09/29/23 Acacia Wells NP [facility] [place] [id number] 09/29/23 Delmy Hagan Primary Service Desk Associate 11/03/24 documented as of this encounter
--- OUTSIDE RECORDS SUMMARY | 2024-12-01 11:29 | XMS_ITS | Encounter Summary ---
Author Organization [facility] Healthcare Address [address] [place] [address] Care Team Providers Care Land Measurer Name Role Phone Elis Keller RN Unavailable [phone] Chano Parks MD Unavailable [phone] Sarah Kay MD Unavailable [phone] Pat Edwards MD Unavailable [phone] Datar, Jose Guadalupe Sosa MD Unavailable [phone] Gilles Estrella MD Unavailable Laverne Logan RN Unavailable Lorie Mccormack FAMILY MEDICINE PHYSICIAN ASSISTANT Primary Care Provider + Henrietta Schneider MD Unavailable [phone] Acacia Wells NP Unavailable Delmy Hagan Unavailable Unavailable Encounter Details Date Type Department Care Team (Latest Contact Info) Description 12/01/2024 11:29 AM CDT - 12/01/2024 11:59 PM CDT Hospital Encounter [facility]) [address] [place] [address] Discharge Disposition: Discharge to home or self care Social History Tobacco Use Types Packs/Day Years Used Date Smoking Tobacco: Former Cigarettes 1.5 20 0 05/12/2003 - 05/12/2023 Smokeless Tobacco: Never [facility] Utilities Answer Date Recorded In the [...] often do you attend chur ch or voodoo services? Never 10/09/2023 Do you belong to any clubs o r organizations such as rastafari groups, unions, fraternal or athletic groups, or [...] any time in the past 12 m [facility], were you homeless or living in a care home (including now)? No 10/09/2023 Personal Safety [...] 2 capsules (600 mg total) by mouth early childhood special educator before breakfast sodium bicarbonate 650 mg tablet [...] Smoking Cessation Take 1 tablet by mouth early childhood special educator before breakfast 02/04/2023 documented as of this encounter Discharge Disposition Disposition Code Departure Means Destination Discharge to home or self care documented in this encounter Plan of Treatment Not on file documented as of this encounter Procedures Procedure Name Priority Date/Time Associated Diagnosis Comments XR TRANSFER OF OUTSIDE FILMS Routine 12/01/2024 11:29 AM CDT documented in this encounter Results * XR Outside Reference (12/01/2024 11:29 AM CDT) Impressions [facility] - 12/01/2024 11:29 AM CDT These images are for Reference purposes only and have not been reviewed by [facility] Radiology. There will be no report generated by a [facility] Radiologist. Narrative [facility] - 12/01/2024 11:29 AM CDT EXAMINATION: Images For Reference Purposes Only us Champ Danielle MD IMG XR PROCEDURES Final Resul t [facility] documented in this encounter Visit Diagnoses Not on filedocumented in this encounter Care Teams Land Measurer Relationship Specialty Start Date End Date Lorie Mccormack NP [address] [place] [address] PCP - General Family Medicine 09/11/23 Elis Keller, RICHARD [address] [facility] [address] [place] [address] [employer] Architect 07/23/23 Chano Parks MD [address] [facility] [address] [place] [address] Referring Physician Transplant 07/23/23 Sarah Kay MD [address] [place] [address] Referring Physician Cardiovascular Disease 07/24/23 Pat Edwards MD [address] [facility] [place] [address] Internal Medicine 07/24/23 Datar, Jose Guadalupe Sosa MD [address] [place], [place] [address] Internal Medicine 07/24/23 Gilles Estrella MD [address] [place] [address] Director Medicare Sales Transplant 09/03/23 Laverne Logan, RN [address] [address] Heart Failure Coordinator [employer] Architect 09/03/23 Henrietta Schneider MD [address] [address] Nephrology 09/29/23 Acacia Wells NP [facility] [place] [id number] 09/29/23 Delmy Hagan Primary Asphalt Blender 11/03/24 documented as of this encounter
--- OUTSIDE RECORDS SUMMARY | 2024-12-02 10:43 | XMS_ITS | Encounter Summary ---
Author Organization [facility] Healthcare Address [address] [place] [address] Care Team Providers Care Maintenance Scheduler Name Role Phone Elis Keller RN Unavailable Chano Parks MD Unavailable [phone] Sarah Kay MD Unavailable Pat Edwards MD Unavailable [phone] Datar, Jose Guadalupe Sosa MD Unavailable Gilles Estrella MD Unavailable [phone] Laverne Logan RN Unavailable [phone] Lorie Mccormack LABOR EXPEDITER Primary Care Provider + Henrietta Schneider MD Unavailable [phone] Acacia Wells NP Unavailable Delmy Hagan Unavailable Unavailable Encounter Details Date Type Department Care Team (Latest Contact Info) Description 12/02/2024 10:43 AM CDT - 12/02/2024 11:59 PM CDT Hospital Encounter [facility] [address] [place] [address] Arrived Discharge Disposition: Discharge to home or self care Social History Tobacco Use Types Packs/Day Years Used Date Smoking Tobacco: Former Cigarettes 1.5 20 0 05/12/2003 - 05/12/2023 Smokeless Tobacco: Never [facility] Utilities Answer Date Recorded In the [...] often do you attend chur ch or mandaen services? Never 10/09/2023 Do you belong to any clubs o r organizations such as scientology groups, unions, fraternal or athletic groups, or [...] any time in the past 12 m [facility], were you homeless or living in a half-way (including now)? No 10/09/2023 Personal Safety Answer [...] 2 capsules (600 mg total) by mouth environmental resource specialist before breakfast sodium bicarbonate 650 mg tablet [...] Smoking Cessation Take 1 tablet by mouth environmental resource specialist before breakfast 02/04/2023 documented as of this encounter Discharge Disposition Disposition Code Departure Means Destination Discharge to home or self care documented in this encounter Plan of Treatment Not on file documented as of this encounter Procedures Procedure Name Priority Date/Time Associated Diagnosis Comments CT BODY OUTSIDE REFERENCE Routine 12/02/2024 10:43 AM CDT documented in this encounter Results * CT Body Outside Reference (12/02/2024 10:43 AM CDT) Impressions [facility] - 12/02/2024 10:43 AM CDT These images are for Reference purposes only and have not been reviewed by [facility] Radiology. There will be no report generated by a [facility] Radiologist. Narrative RAD_PACS[facility] - 12/02/2024 10:43 AM CDT EXAMINATION: Images For Reference Purposes Only us Champ Danielle MD IMG CT PROCEDURES Final Resul t [facility] documented in this encounter Visit Diagnoses Not on filedocumented in this encounter Care Teams Maintenance Scheduler Relationship Specialty Start Date End Date Lorie Mccormack NP [address] [place] [address] PCP - General Family Medicine 09/11/23 Elis Keller, RICHARD [address] [facility] [address] [place] [address] Loan Interviewer 07/23/23 Chano Parks MD [address] [facility] [address] [place] [address] Referring Physician Transplant 07/23/23 Sarah Kay MD [address] [place] [address] Referring Physician Cardiovascular Disease 07/24/23 Pat Edwards MD [address] [facility] DEPT HOSPITALIST [place], [place] [address] Internal Medicine 07/24/23 Datar, Jose Guadalupe Sosa MD [address] [place], [place] [address] Internal Medicine 07/24/23 Gilles Estrella MD [address] [place] [address] Finger Waver Transplant 09/03/23 Laverne Logan, RN [address] [address] Heart Failure Coordinator Loan Interviewer 09/03/23 Henrietta Schneider MD [address] [address] Nephrology 09/29/23 Acacia Wells NP [facility] [place] [id number] 09/29/23 Delmy Hagan Primary Assistant Front Office Manager 11/03/24 documented as of this encounter
--- OUTSIDE RECORDS SUMMARY | 2024-12-02 10:48 | XMS_ITS | Encounter Summary ---
Author Organization [facility] Healthcare Address [address] [place] [address] Care Team Providers Care Drill Hand Name Role Phone Elis Keller RN Unavailable Chano Parks MD Unavailable [phone] Sarah Kay MD Unavailable Pat Edwards MD Unavailable [phone] Datar, Jose Guadalupe Sosa MD Unavailable Gilles Estrella MD Unavailable Laverne Logan RN Unavailable Lorie Mccormack MULTICRAFT OPERATOR Primary Care Provider + Henrietta Schneider MD Unavailable Acacia Wells NP Unavailable Delmy Hagan Unavailable Unavailable Encounter Details Date Type Department Care Team (Latest Contact Info) Description 12/02/2024 10:48 AM CDT - 12/02/2024 11:59 PM CDT Hospital Encounter [facility] [address] [place] [address] Arrived Discharge Disposition: Discharge to home or self care Social History Tobacco Use Types Packs/Day Years Used Date Smoking Tobacco: Former Cigarettes 1.5 20 0 05/12/2003 - 05/12/2023 Smokeless Tobacco: Never [facility] Utilities Answer Date Recorded In the past [...] often do you attend chur ch or holiness services? Never 10/09/2023 Do you belong to any clubs o r organizations such as anabaptist groups, unions, fraternal or athletic groups, or [...] time in the past 12 m [facility], were you homeless or living in [...] 2 capsules (600 mg total) by mouth manufacturing engineer supervisor before breakfast sodium bicarbonate 650 mg tablet [...] Smoking Cessation Take 1 tablet by mouth manufacturing engineer supervisor before breakfast 02/04/2023 documented as of this encounter Discharge Disposition Disposition Code Departure Means Destination Discharge to home or self care documented in this encounter Plan of Treatment Not on file documented as of this encounter Procedures Procedure Name Priority Date/Time Associated Diagnosis Comments CT BODY OUTSIDE REFERENCE Routine 12/02/2024 10:48 AM CDT documented in this encounter Results * CT Body Outside Reference (12/02/2024 10:48 AM CDT) Impressions [facility] - 12/02/2024 10:48 AM CDT These images are for Reference purposes only and have not been reviewed by [facility] Radiology. There will be no report generated by a [facility] Radiologist. Narrative [facility] - 12/02/2024 10:48 AM CDT EXAMINATION: Images For Reference Purposes Only us Champ Danielle MD IMG CT PROCEDURES Final Resul t [facility] documented in this encounter Visit Diagnoses Not on filedocumented in this encounter Care Teams Drill Hand Relationship Specialty Start Date End Date Lorie Mccormack NP [address] [place] [address] PCP - General Family Medicine 09/11/23 Elis Keller, RN [address] [facility] [address] [place] [address] Retail Merchandising Specialist 07/23/23 Chano Parks MD [address] [facility] [address] [place] [address] Referring Physician Transplant 07/23/23 Sarah Kay MD [address] [place] [address] Referring Physician Cardiovascular Disease 07/24/23 Pat Edwards MD [address] [facility] [place] [address] Internal Medicine 07/24/23 Datar, Jose Guadalupe Sosa MD [address] [place] [address] Internal Medicine 07/24/23 Gilles Estrella MD [address] [place] [address] Accounting Teacher Transplant 09/03/23 Laverne Logan, RN [address] [id number] Heart Failure Coordinator Retail Merchandising Specialist 09/03/23 Henrietta Schneider MD [address] [place] [id number] Nephrology 09/29/23 Acacia Wells NP [address] [place] [phone] 09/29/23 Delmy Hagan Primary Family Preservation Officer 11/03/24 documented as of this encounter
--- OUTSIDE RECORDS SUMMARY | 2024-12-05 12:23 | XMS_ITS | Encounter Summary ---
Author Organization [facility] Healthcare Address [address] [place] [address] Care Team Providers Care Machine Operator Helper Name Role Phone Elis Keller RN Unavailable Chano Parks MD Unavailable [phone] Sarah Kay MD Unavailable Pat Edwards MD Unavailable [phone] Datar, Jose Guadalupe Sosa MD Unavailable Gilles Estrella MD Unavailable [phone] Laverne Logan RN Unavailable [phone] Lorie Mccormack MANAGED CARE DIRECTOR Primary Care Provider + Henrietta Schneider MD Unavailable [phone] Acacia Wells NP Unavailable Delmy Hagan Unavailable Unavailable Reason for Referral * MRI/CAT/PET Scan (Routine) - Closed Specialty Diagnoses / Procedures Referred By Contac t Referred To Contact Diagnoses 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 CT chest without contrast Shahana Yoder, MANAGED CARE DIRECTOR [address] [place] [address] Phone: tel: fax: External Order Referral ID Status Reason Start Date Expiration Date Visits Re quested Visits Authorized [id number] Closed 11/30/2024 12/30/2025 1 1 Reason for Visit * MRI/CAT/PET Scan (Routine) - Closed Specialty Diagnoses / Procedures Referred By Laura t Referred To Contact Diagnoses 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 CT chest without contrast Shahana Yoder NP [address] [place] [address] [place] [address] Phone: tel: fax: External Order Referral ID Status Reason Start Date Expiration Date Visits Re quested Visits Authorized [id number] Closed 11/30/2024 12/30/2025 1 1 Encounter Details Date Type Department Care Team (Latest Contact Info) Description 12/05/2024 12:23 PM CDT Hospital Encounter [facility] [address] [address] 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 Never 10/09/2023 Do you belong to any clubs o r organizations such as baptism groups, unions, fraternal or athletic groups, or school groups? No 10/09/2023 How often do you attend meet ings of the clubs or organizations you belong to? Never 10/09/2023 Are you , , di vorced, , never , or living with a partner? 10/09/2023 Overall Financial Resource Strain (CARDIA) Answe r [...] any time in the past 12 m [facility], were you homeless or living in a residential (including now)? No 10/09/2023 AUDIT-C Answer Date Recorded Frequency of Alcohol Consumption Not on file 12/05/2024 Q2: How many drinks containi ng alcohol do you have on a typical day when you are drinking? 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 Reconstructed coronal and sagittal MPR images reviewed. All images stored on PACS. Automated exposure control was used as a dose optimization technique for this examination. COMPARISON: 09/15/2024 FINDINGS: The sensitivity for detection of solid visceral lesions is diminished without the use of intravenous contrast. LUNGS: There is a very large thick-walled cavitary mass near the left apex now measuring approximately 9.8 x 9.6 cm which previously measured 9.9 by 6.7 cm. There is a new mixed ground-glass and consolidative opacity posteriorly in the left lower lobe. Small scattered nodular opacities in the left upper lobe have increased in size and number. There are multiple new tree-in-bud opacities in the right upper lobe. Scattered nodular opacities in the right lower lobe have also developed. Tree-in-bud nodularity is seen anteriorly in the right lower lobe which is new. PLEURA: There is a trace left pleural effusion. MEDIASTINUM/KAYLEN: No identified masses or abnormal nodes. HEART: Heart size is normal with no pericardial effusion. CORONARY ARTERY CALCIFICATION: Present VASCULATURE: No thoracic aortic aneurysm. AXILLA: No adenopathy. CHEST WALL: No masses. No subcutaneous air. HARDWARE/LINES/TUBES: There is an electronic power pack superimposing the right hemithorax. UPPER ABDOMEN: Innumerable cysts are seen involving both partially imaged kidneys suggesting polycystic kidney disease. There also multiple cysts in the liver. The gallbladder has been removed. MUSCULOSKELETAL: No significant abnormality. OTHER: No other significant abnormality. IMPRESSION: 1. Interval increased size of the thick-walled cavitary mass near the left apex. 2. Interval development of new mixed ground-glass and consolidative left lower lobe opacity. Also noted are numerous new smaller nodular opacities in both laurent thoraces. There are areas of tree-in-bud nodularity seen in the right upper and lower lobes. These findings are consistent with disease progression. 3. Trace left pleural effusion. 4. Evidence of polycystic kidney disease. THIS IS AN ELECTRONICALLY VERIFIED FINAL REPORT 12/05/2024 12:55 PM - Electronically signed by Roland Proctor M.D. 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 Reconstructed coronal and sagittal MPR images reviewed. All images stored on PACS. Automated exposure control was usedas a dose optimization technique for this examination. COMPARISON: 09/15/2024 FINDINGS: The sensitivity for detection of solid visceral lesions is diminished without the use of intravenous contrast. LUNGS: There is a very large thick-walled cavitary mass near the leftapex now measuring approximately 9.8 x 9.6 cm which previously measured 9.9 by6.7 cm. There is a new mixed ground-glass and consolidative opacityposteriorly in the left lower lobe. Small scattered nodular opacities in the leftupper lobe have increased in size and number. There are multiple ibkrzim-et-wtd opacities in the right upper lobe. Scattered nodular opacities in theright lower lobe have also developed. Tree-in-bud nodularity is seen anteriorlyin the right lower lobe which is new. PLEURA: There is a trace left pleural effusion. MEDIASTINUM/KAYLEN: No identified masses or abnormal nodes. HEART: Heart size is normal with no pericardial effusion. CORONARY ARTERY CALCIFICATION: Present VASCULATURE: No thoracic aortic aneurysm. AXILLA: No adenopathy. CHEST WALL: No masses. No subcutaneous air. HARDWARE/LINES/TUBES: There is an electronic power pack superimposingthe right hemithorax. UPPER ABDOMEN: Innumerable cysts are seen involving both partiallyimaged kidneys suggesting polycystic kidney disease. There also multiple cystsin the liver. The gallbladder has been removed. MUSCULOSKELETAL: No significant abnormality. OTHER: No other significant abnormality. IMPRESSION: 1. Interval increased size of the thick-walled cavitarymass near the left apex. 2. Interval development of new mixed ground-glass and consolidative left lower lobe opacity. Also noted are numerous new smaller nodular opacitiesin both laurent thoraces. There are areas of tree-in-bud nodularity seen in the right upper and lower lobes. These findings are consistent with disease progression. 3. Trace left pleural effusion. 4. Evidence of polycystic kidney disease. THIS IS AN ELECTRONICALLY VERIFIED FINAL REPORT 12/05/2024 12:55 PM - Electronically signed by Roland Proctor M.D. 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 documented in this encounter Care Teams Machine Operator Helper Relationship Specialty Start Date End Date Lorie Mccormack NP [address] [place] [address] PCP - General Family Medicine 09/11/23 Elis Keller, RN [address] [facility] [address] [place] [address] Loan Administrator 07/23/23 Chano Parks MD [address] [facility] [address] [place] [address] Referring Physician Transplant 07/23/23 Sarah Kay MD [address] [place] [address] Referring Physician Cardiovascular Disease 07/24/23 Pat Edwards MD [address] [facility] [place] [address] Internal Medicine 07/24/23 Datar, Jose Guadalupe Sosa MD [address] [place] [address] Internal Medicine 07/24/23 Gilles Estrella MD [address] [place] [address] Administrative Analyst Transplant 09/03/23 Laverne Logan, RN [address] [facility] [address] [place] [address] Heart Failure Coordinator Loan Administrator 09/03/23 Henrietta Schneider MD [address] [place] [address] [address] [place], [place] [id number] Nephrology 09/29/23 Acacia Wells NP [address] [place] [phone] 09/29/23 Delmy Hagan Primary Prestressed Concrete Laborer 11/03/24 documented as of this encounter
--- OUTSIDE RECORDS SUMMARY | 2024-12-05 13:00 | XMS_ITS | Encounter Summary ---
Author Organization [facility] Address [address] [place] [address] Phone Care Team Providers Care Craft Demonstrator Name Role Phone Elis Keller RN Unavailable Chano Parks MD Unavailable [phone] Sarah Kay MD Unavailable [phone] Pat Edwards MD Unavailable [phone] Datar, Jose Guadalupe Sosa MD Unavailable [phone] Gilles Estrella MD Unavailable [phone] Laverne Logan RN Unavailable [phone] Lorie Mccormack IT APPLICATIONS MANAGER Primary Care Provider + Henrietta Schneider MD Unavailable [phone] Acacia Wells NP Unavailable [phone] Delmy Hagan Unavailable Unavailable Reason for Visit * Reason Comments Consult * Consultation (Routine) - Closed Specialty Diagnoses / Procedures Referred By Contkory t Referred To Contact Cardiothoracic Surgery Diagnoses 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) Pat Edwards MD [address] [facility] [address] Phone: tel: fax: [facility] (All Locations) Referral ID Status Reason Start Date Expiration Date V isits Requested Visits Authorized [id number] Closed Specialty Services Required 11/18/2024 2025 1 1 Encounter Details Date Type Department Care Team (Late st Contact Info) Description 12/05/2024 1:00 PM CDT Office Visit [facility] [facility] [address] [place] [address] Champ Danielle MD [address] [place] [address] Chronic obstructive pulmonary disease with emphysema, unspecified emphysema type (Primary Dx) Social History Tobacco Use Types Packs/Day Years Used Date Smoking Tobacco: Some Days Cigarettes 1.5 20 Started: 05/12/2003; Last attempted to quit: 05/12/2023 Smokeless Tobacco: Never Tobacco Cessation:Ready to Q uit: Not Asked; Counseling Given: Not Answered [facility] Utilities Answer Date Recorded In the past 12 months has [employer], gas, oil, or water [employer] threatened to shut off services in your [...] often do you attend chur ch or zoroastrian services? Never 10/09/2023 Do you belong to any clubs o r organizations such as rastafarian groups, unions, fraternal or athletic groups, or [...] any time in the past 12 m [facility], were you homeless or living in a care home (including now)? No 10/09/2023 AUDIT-C Answer Date [...] on file documented as of this encounter Last Filed Vital Signs Vital Sign Reading Time Taken Comments Blood Pressure 75/50 12/05/2024 1:24 PM CDT Pulse 127 12/05/2024 1:04 PM CDT Temperature 36.7 C (98 F) 12/05/2024 1:04 PM CDT Respiratory Rate 22 12/05/2024 1:04 PM CDT Oxygen Saturation 93% 12/05/2024 1:04 PM CDT Inhaled Oxygen Concentration - - Weight 80.6 kg (177 lb 11.1 oz) 12/05/2024 1:04 PM CDT Height 180 cm (5' 10.87 ) 12/05/2024 1:04 PM CDT Body Mass Index 24.88 12/05/2024 1:04 PM CDT documented in this encounter Functional Status documented as of this encounter Progress Notes * Champ Danielle MD - 12/05/2024 1:00 PM CDT Images from the original note were not included. [facility] Thoracic Surgery History and Physical 12/05/2024 Pat Edwards MD Arelis Hardin 1965 Dear colleagues: Thank you for asking me to see Arelis Hardin in consultation. As you know, Arelis Hardin is a 58 y.o. 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 Patient has a history of mycobacterium avium intracellular infection. He was referred to the clinic by Dr. Pat Edwards who is an Infectious Disease specialist. He has a past medical history significant for COPD, diabetes, myocardial infarction, hypertension, kidney disease, liver disease, and lupus. He is a former 1-1/2 pack per day smoker times 20 years who quit smoking in April 2023. He is scheduled for an updated CT of the chest prior to his appointment today. He underwent a CT of the chest without contrast on 09/15/2024 at [facility] which reveals: There is a large cavitary mass lying in the left lung apex that measures about 10 cm in diameter. The cavity demonstrates a thick irregular, nodular capsule in his filled with air. There are numerous nodules scattered throughout much of the left lung. These nodules are small with the largest measuring 2 cm in diameter within the left lower lobe. Both lungs demonstrate diffuse centrilobular and paraseptal emphysematous changes. Left- sided nodular lung disease has worsened significantly since 11/20/2023. Most likely indicates worsening SAMIRA infection. He underwent a CT of the chest without contrast on 06/03/2024 at [facility] which reveals the following: There is an 8.4 cm cavitary lesion in the left upper lobe with a thick irregular wall. There are multiple adjacent small nodules. There are multiple small nodules in the left lower lobe. Thefindings are probably neoplastic in origin. An infectious etiology is possible but felt to be less likely. Severe bullous emphysematous change. He underwent a CT of the chest on 11/17/2023 at [facility] which reveals an 8.5 x 5.5 cm thick-walled cavitary left upper lobe increased in size from previous exam consistent with history of mycobacterium infection. COPD with upper lobe emphysematous changes and bronchiectasis, stable. He underwent a CT of the chest, abdomen, and pelvis on 09/24/2023 at [facility] which reveals: New left upper lobe cavitary lesion with additional tree-in-bud nodularity in the left upperand right upper lobe likely represents cavitary mycobacterial avium complex infection. Recommend pulmonology consult. He had a prior PFT at an outside hospital on 02/11/2024 which revealed and FEV1 of 68% predicted and a DLCO of 57% predicted. Unfortunately, no further information from this PFT is available. All imaging has been requested to be available for review on file. He is here for further surgical evaluation and discussion. He apparently was seen last week complaining of some shortness of breath and a cough. He thought he had some bronchitis. He was given a prescription of some oral antibiotic. He has not noticed an improvement. He feels like he might have taken a double dose of his lisinopril this morning. He was a cause of concern in the waiting room for he came in for this clinic visit. He was very short of breath, tachycardic, and had a low blood pressure. It is notable that his weight has been decreasing. He was 183 lb in September, 182 lb in Octoberand 177 lb now. He says that he is eating okay. He has a reasonable appetite. He does have a productive cough. He does not have hemoptysis. He is not aware of a fever. He is still smoking. He has started smoking again in the early part of this year. He smokes about a half a pack a day. I saw the patient in clinic today with a senior stereo compiler team lead: Shahana Yoder NP. I have reviewed and agreewith the past medical history, social history, family history and review of systems entered into the medical record. The review of systems was scanned in as a separate entry. We also reviewed and updated the medication list and allergies. On physical exam, patient is awake and alert. He looks frail. He looks unwell. His vital signs are as recorded with a blood pressure of 87/62 and pulse of 127. He is not requiring oxygen. His sats were 93% on room air. He is wearing a mask at the request of the senior front end developer personnel. He has breath sounds present bilaterally. He has decreased breath sounds on the left side. His heart was tachycardic. His abdomen was soft and nontender. His extremities had no clubbing or edema. Neurologically he was intact. ECOG PERFORMANCE STATUS: 2 Ambulatory and capable of all selfcare but unable to carry out any work activities; up and about more than 50% of waking hours I have ordered or reviewed these tests, documents, independent histories, imaging and labs. These include the following: CT today- new finding of extensive infiltration and possibly necrotizing infection of the superior segment of the left lower lobe. Previously this was spared on the previous comparison films. Also some other disease further down in the basilar segments of the left lung. August CT chest Left upper lobe 2. Previous comparison May 2024 3.Longer term previous comparison 09/2023 4.PFT at an outside hospital on 02/11/2024 which revealed and FEV1 of 68% predicted and a DLCO of 57% predicted. Unfortunately, no further information from this PFT is available. Mr. Hardin was referred for the possibility of surgery on the lesion on the left upper lobe. He was borderline for resection based on the data new prior to seeing him. The CT scan today shows progression of the left lung disease. The left lower lobe was now extensively involved. He is still smoking. He meets the criteria for requiring acute hospitalization for management of his pneumonia, his COPD, and his unstable vital signs. He has asked me to try to arrange for him to be admitted closer to home. I have made some calls from clinic to try to do that. He is here with a taxi driver supervisor. The taxi driver supervisor is his job cost estimator and his caregiver. I discussed all of this with the patient. I provided counseling and education to the patient and tofamily/caregiver. We discussed the options available at this point, and discussed the risks for morbidity with and without intervention. We discussed management of the issues and settled on the following plans for management: I believe he needs acute hospitalization. I was able to speak on the telephone with Dr. Pat Edwards and she agreed with that plan. His caregiver will drive him back home and delivery him to the emergency department. Dr. Edwards we will alert the emergency department that he is coming. I would not consider him for surgical resection right now given the extent of left lung involvementand his current symptoms of productive cough, shortness of breath, tachycardia, and decreased bloodpressure. Things may change with acute hospitalization and treatment with intravenous antibiotics. It is possible his decreased blood pressure is the result of some inaccurate medication taking on his part with the lisinopril. He needs to stop smoking. I would not do an elevated risk pulmonary resection on somebody who continues to smoke. Thank you very much. Yours sincerely, Champ Danielle MD, MPH Tank Truck Operator completed by using [email or web address] Direct speaking software, therefore, transcriptionvariances may occur. documented in this encounter Plan of Treatment Not on file documented as of this encounter Visit Diagnoses Diagnosis Chronic obstructive pulmonary disease with emphysema, unspecified emphysema type- Primary documented in this encounter Orders Outpatient Referral Count Last Ordered Date Fir st Ordered Date AMB REFERRAL TO CARDIOTHORACIC SURGERY 1 documented in this encounter Care Teams Craft Demonstrator Relationship Specialty Start Date End Date Lorie Mccormack NP [address] [place] [address] PCP - General Family Medicine 09/11/23 Elis Keller, RICHARD [address] [facility] [address] [place], [place] [id number] Brooch Maker Novelty 07/23/23 Chano Parks MD [address] [facility] [address] [place], [place] [id number] Referring Physician Transplant 07/23/23 Sarah Kay MD [address] [place] [address] Referring Physician Cardiovascular Disease 07/24/23 Pat Edwards MD [address] [place] [address] [place] [address] Internal Medicine 07/24/23 Datar, Jose Guadalupe Sosa MD [address] [place] [address] Internal Medicine 07/24/23 Gilles Estrella MD [address] [place] [address] Ultrasound Applications Specialist Transplant 09/03/23 Laverne Logan, RICHARD [address] [facility] [address] [place], [place] [id number] Heart Failure Coordinator Brooch Maker Novelty 09/03/23 Henrietta Schneider MD [facility] [address] [place], [place] [id number] Nephrology 09/29/23 Acacia Wells NP [address] [place] [phone] 09/29/23 Delmy Hagan Primary Candy Separator Hard 11/03/24 documented as of this encounter
--- OUTSIDE RECORDS SUMMARY | 2024-12-05 20:40 | XMS_ITS | Encounter Summary ---
Author Organization [facility] Address [address] [place] [address] Phone Care Team Providers Care Quartz Mounter Name Role Phone Roland Hays ARCHITECTURAL ADMINISTRATIVE ASSISTANT Primary Care Provider [phone] Elis Keller RN Unavailable Chano Parks MD Unavailable [phone] Sarah Kay MD Unavailable Pat Edwards MD Unavailable [phone] DatarJose Guadalupe MD Unavailable Gilles Estrella MD Unavailable Laverne Logan RN Unavailable Lorie Mccormack ARCHITECTURAL ADMINISTRATIVE ASSISTANT Primary Care Provider + Henrietta Schneider MD Unavailable Acacia Wells NP Unavailable Delmy Hagan Unavailable Unavailable Encounter Details Date Type Department Care Team (Late st Contact Info) Description 07/21/2023 Orders Only [facility] Scanning, Provider Social History Tobacco Use Types Packs/Day Years Used Date Smoking Tobacco: Former Cigarettes Smokeless Tobacco: Never Personal Safety Answer Date Recorded Getting School Help Needed Not on file 02/03 Sex and Gender Information Value Date Recorded Sex Assigned at Not on file Legal Sex Male 10:48 AM CDT Gender Identity Not on file Sexual Orientation Not on file documented as of this encounter Plan of Treatment Not on file documented as of this encounter Procedures Procedure Name Priority Date/Time Associated Diagnosis Comments SCAN - LABS 07/21/2023 documented in this encounter Results * SCAN - LABS (07/21/2023) us Provider Scanning Edited Result - Final documented in this encounter Visit Diagnoses Not on filedocumented in this encounter Additional Health Concerns Infection Onset Date Last Indicated Resolved Time Tuberculosis (rule out) Comment:02/11/2024 IP Review: AFB identified as nonMTB organism. Umm Olsen RN Sputum AFB stain + 12/29/2023 12/29/2023 02/11/2024 10:50 AM HAND THERAPIST documented as of this encounter Care Teams Quartz Mounter Relationship Specialty Start Date End Date Roland Hays, ARCHITECTURAL ADMINISTRATIVE ASSISTANT [address] [address] PCP - General Nurse Practitioner 04/09/23 09/10/23 Lorie Mccormack NP [address] [place] [address] PCP - General Family Medicine 09/11/23 Elis Keller, RICHARD [address] [address] [place] [address] Program Control Analyst 07/23/23 Chano Parks MD [address] [facility] [address] [place] [address] Referring Physician Transplant 07/23/23 Sarah Kay MD [address] [place] [address] Referring Physician Cardiovascular Disease 07/24/23 Pat Edwards MD [address] [facility] [place] [address] Internal Medicine 07/24/23 Datar, Jose Guadalupe Sosa MD [address] [place] [address] Internal Medicine 07/24/23 Gilles Estrella MD [address] [place] [address] Horse Identifier Transplant 09/03/23 Laverne Logan, RN [address] [address] Heart Failure Coordinator Program Control Analyst 09/03/23 Henrietta Schneider MD [address] [place] [address] Nephrology 09/29/23 Acacia Wells NP [address] [place] [phone] 09/29/23 Delmy Hagan Primary Family Preservation Worker 11/03/24 documented as of this encounter
--- OUTSIDE RECORDS SUMMARY | 2024-12-05 20:40 | XMS_ITS | Encounter Summary ---
Author Organization [facility] Address [address] [place] [address] Phone Care Team Providers Care Shield Cleaner Name Role Phone Roland Hays CONCRETE LAYER Primary Care Provider [phone] Elis Keller RN Unavailable Chano Parks MD Unavailable [phone] Sarah Kay MD Unavailable Pat Edwards MD Unavailable [phone] DatarJose Guadalupe MD Unavailable Gilles Estrella MD Unavailable [phone] Laverne Logan RN Unavailable [phone] Lorie Mccormack CONCRETE LAYER Primary Care Provider + Henrietta Schneider MD Unavailable Acacia Wells NP Unavailable Delmy Hagan Unavailable Unavailable Encounter Details Date Type Department Care Team (Late st Contact Info) Description 05/13/2023 Orders Only [facility] Scanning, Provider Social History Tobacco Use Types Packs/Day Years Used Date Smoking Tobacco: Every Day Cigarettes Smokeless Tobacco: Never Personal Safety Answer [...] Date/Time Associated Diagnosis Comments SCAN - LABS 05/13/2023 documented in this encounter Results * SCAN - LABS (05/13/2023) us Provider Scanning Final Result documented in this encounter Visit Diagnoses Not on filedocumented in this encounter Additional Health Concerns Infection Onset Date Last Indicated Resolved Time Tuberculosis (rule out) Comment:02/11/2024 IP Review: AFB identified as nonMTB organism. Umm Olsen RN Sputum AFB stain + 12/29/2023 12/29/2023 02/11/2024 10:50 AM OPERATIONS SPECIALIST documented as of this encounter Care Teams Shield Cleaner Relationship Specialty Start Date End Date Roland Hays, CONCRETE LAYER [address] [address] PCP - General Nurse Practitioner 04/09/23 09/10/23 Lorie Mccormack NP [address] [place] [address] PCP - General Family Medicine 09/11/23 Elis Keller, RICHARD [address] [place] [address] Flush Tester 07/23/23 Chano Parks MD [address] [facility] [address] [place] [address] Referring Physician Transplant 07/23/23 Sarah Kay MD [address] [place] [address] Referring Physician Cardiovascular Disease 07/24/23 Pat Edwards MD [address] [facility] [place] [address] Internal Medicine 07/24/23 Datar, Jose Guadalupe Sosa MD [address] [place] [address] Internal Medicine 07/24/23 Gilles Estrella MD [address] [place] [address] Analytical Data Miner Transplant 09/03/23 Laverne Logan, RICHARD [address] [address] Heart Failure Coordinator Flush Tester 09/03/23 Henrietta Schneider MD [address] [place] [address] Nephrology 09/29/23 Acacia Wells NP [address] [place] [phone] 09/29/23 Delmy Hagan Primary Solar Fabrication Technician 11/03/24 documented as of this encounter
--- OUTSIDE RECORDS SUMMARY | 2024-12-05 20:40 | XMS_ITS ---
Author Organization [facility] Address [address] [place] [address] Care Team Providers Care Internal Communications Manager Name Role Phone Elis Keller RN Unavailable [phone] Chano Parks MD Unavailable [phone] Sarah Kay MD Unavailable Pat Edwards MD Unavailable [phone] Datar, Jose Guadalupe Sosa MD Unavailable Gilles Estrella MD Unavailable Laverne Logan RN Unavailable [phone] Lorie Mccormack TABLET REPAIR Primary Care Provider + Henrietta Schneider MD Unavailable [phone] Acacia Wells NP Unavailable Delmy Hagan Unavailable Unavailable Transplant Episode Kidney Candidate [facility] ([place], [place]) - [facility] Evaluation began on 07/24/2023 Marked as Active on 07/24/2023 Reason: Evaluation - Standard Kidney CoordinatorElis Keller RN Email: N/A Scores Score Value Updated Exceptions/Reas ons CPRA Not available EPTS (Calc) 44 12/05/2024 [place] Organ Diagnosis Organ Primary Contributory Kidney Polycystic Kidneys Care Team Name Role Phone Fax Email Elis Keller, RICHARD Kidney Coordinator [phone] N/A Sung Dixon Wind Field Service Manager N/A N/A N/A Chano Parks MD Referring Physician [phone] N/A Zandra Laboy Primary Regional Hr Manager N/A N/A N/A Events Pre-Transplant Referred: 12/17/2022 Evaluation began: 07/24/2023
--- OUTSIDE RECORDS SUMMARY | 2024-12-05 20:41 | XMS_ITS | Encounter Summary ---
Author Organization [facility] [place] [facility] Address [address] [facility] [address] [place] [address] Phone Care Team Providers Care Olericulturist Name Role Phone Lorie Mccormack VAISHALI Primary Care Provider [phone] Encounter Details Date Type Department Care Team (Late Contact Info) Description 12/05/2024 Documentation Only [facility] [address] [place] [address] Estefania Ayres [place] [address] [facility] [address] [place] [address] Social History Tobacco Use Types Packs/Day Years Used Date Smoking Tobacco: Every Day Cigarettes Smokeless Tobacco: Never Alcohol Use Standard Drinks/Week Comments No 0 (1 standard drink = 0.6 oz pur e alcohol) Sex and Gender Information Value Date Recorded Sex Assigned at Not on file Legal Sex Male 12:40 PM EST Gender Identity Not on file Sexual Orientation Not on file documented as of this encounter Plan of Treatment Upcoming Encounters Date Type Department Care Team (Late st Contact Info) Description 12/06/2024 3:00 PM CDT Office Visit [facility] [address] [place] [address] Acacia Wells NP [address] [place] [address] documented as of this encounter Procedures Procedure Name Priority Date/Time Associated Diagnosis Comments COMPREHENSIVE METABOLIC PANEL (CMP) (EXTERNAL LAB ENTRY) Routine 09/20/2024 1:12 PM CDT CBC (INCLUDES DIFF/PLT) (EXTERNAL LAB ENTRY) Routine 09/20/2024 1:12 PM CDT documented in this encounter Results * CBC (Includes Diff/Plt) (External Lab) (09/20/2024 1:12 PM CDT) WBC 11.01 K/uL Red Blood Cell Count 4.38 Hemoglobin 14.00 g/dL Hematocrit 42.9 % MCV 97.9 MCH 32.0 MCHC 32.6 RDW 14.2 Platelet Count 239 MPV 9.3 Absolute Neutrophils 9.67 Absolute Lymphocytes 0.6 Absolute Monocytes 0.5 Absolute Eosinophils 0.2 Absolute Basophils 0.1 Neutrophils 87.7 K/uL Lymphocytes 5.1 Monocytes 4.4 Eosinophils 1.4 Basophils 0.5 Blood 09/20/2024 1:12 PM CDT [facility] Estefania Ayers, [place] - 12/05/2024 1:49 PM CDT [facility] Clinical Laboratory [address] [place] [address] Dr. Gamal Becker, Speaker Mounter Acacia Wells RANGE ECOLOGIST LAB BLOOD ORDERABLES Staci l Result * Comprehensive Metabolic Panel (CMP) (09/20/2024 1:12 PM CDT) Glucose 185 mg/dL BUN 37 mg/dL Creatinine 2.3 mg/dL Sodium 139 mEq/L Potassium 4.7 mEq/L Chloride 107 Carbon Dioxide 20 mmol/L Calcium 8.6 mg/dL Albumin (Blood) 3.9 g/dL AST (SGOT) 17 U/L ALT (SGPT) 17 U/L Alkaline Phosphatase 39 U/L Total Bilirubin 0.30 MG/DL eGFR 29.5 Total Protein, Serum 5.7 Anion Gap 16.7 Globulin, Total 1.8 g/dL Blood 09/20/2024 1:12 PM CDT us Acacia Wells RANGE ECOLOGIST LAB BLOOD ORDERABLES Staci l Result documented in this encounter Visit Diagnoses Not on filedocumented in this encounter Care Teams Olericulturist Relationship Specialty Start Date End Date Lorie Mccormack FNP [address] [place] [address] PCP - General Family Medicine 12/01/24 documented as of this encounter
--- OUTSIDE RECORDS SUMMARY | 2024-12-05 20:41 | XMS_ITS | Encounter Summary ---
Author Organization [facility] Address [address] [place] [address] Phone Care Team Providers Care Core Driller Name Role Phone Elis Keller RN Unavailable Chano Parks MD Unavailable [phone] Sarah Kay MD Unavailable [phone] Pat Edwards MD Unavailable [phone] Datar, Jose Guadalupe Sosa MD Unavailable [phone] Gilles Estrella MD Unavailable Laverne Logan RN Unavailable Lorie Mccormack BIOLOGIST Primary Care Provider + Henrietta Schneider MD Unavailable [phone] Acacia Wells NP Unavailable Delmy Hagan Unavailable Unavailable Encounter Details Date Type Department Care Team (Late st Contact Info) Description 11/17/2023 Orders Only [facility] Scanning, Provider Social History Tobacco Use Types Packs/Day Years Used Date Smoking Tobacco: Former Cigarettes 1.5 20 0 05/12/2003 - 05/12/2023 Smokeless Tobacco: Never [facility] Utilities Answer Date Recorded In the past 12 months has [employer] electric, gas, oil, or water company threatened [...] often do you attend chur ch or confucianism services? Never 10/09/2023 Do you belong to any clubs o r organizations such as scientologist groups, unions, fraternal or athletic groups, or [...] any time in the past 12 m [facility], were you homeless or living in a assisted (including now)? No 10/09/2023 Personal Safety Answer [...] Priority Date/Time Associated Diagnosis Comments SCAN - RADIOLOGY/IMAGING 11/17/2023 documented in this encounter Results * SCAN - RADIOLOGY/IMAGING (11/17/2023) Anatomical Region Laterality Modality Other us Provider Scanning Final Result documented in this encounter Visit Diagnoses Not on filedocumented in this encounter Additional Health Concerns Infection Onset Date Last Indicated Resolved Time Tuberculosis (rule out) Comment:02/11/2024 IP Review: AFB identified as nonMTB organism. Umm Olsen RN Sputum AFB stain + 12/29/2023 12/29/2023 02/11/2024 10:50 AM PALEOLOGIST documented as of this encounter Care Teams Core Driller Relationship Specialty Start Date End Date Lorie Mccormack NP [address] [place] [address] PCP - General Family Medicine 09/11/23 Elis Keller, RN [address] [place], [place] [id number] Traffic Or System Dispatcher 07/23/23 Chano Parks MD [address] [facility] [address] [place] [address] Referring Physician Transplant 07/23/23 Sarah Kay MD [address] [place] [address] Referring Physician Cardiovascular Disease 07/24/23 Pat Edwards MD [address] [facility] [place] [address] Internal Medicine 07/24/23 Datar, Jose Guadalupe Sosa MD [address] [place] [address] Internal Medicine 07/24/23 Gilles Estrella MD [address] [place] [address] Health Promotion Manager Transplant 09/03/23 Laverne Logan, RN [address] [address] Heart Failure Coordinator Traffic Or System Dispatcher 09/03/23 Henrietta Schneider MD [address] [place] [address] [address] [place] [address] Nephrology 09/29/23 Acacia Wells NP [address] [place] [phone] 09/29/23 Delmy Hagan Primary Sports Equipment Supervisor 11/03/24 documented as of this encounter
--- OUTSIDE RECORDS SUMMARY | 2024-12-05 20:41 | XMS_ITS | Patient Health Record ---
Author Organization [facility] Address [address] [place] [address] Care Team Providers Care Medical Educator Name Role Phone Lorie Ruiz Primary Care Provider Umair Gonzalez Unavailable [phone] Quirino So Unavailable [phone] Allergies Allergen (clinical drug ingredient) Drug/Non Drug Allergy documented on EMR Reaction Allergy Type Onset Date Status Wasp Venom Unknown Drug Allergy Active Substance with sulfonamide structure and antibacterial mechanism of action (substance) Sulfa Antibiotics Unknown Drug Allergy Active Reason For Referral Reason eval and treat Diagnosis 1 Spondylosis without myelopathy or radiculopathy, lumbar region (M47.816) Referring Provider First Name Bob Referring Provider Last Name Karin Referring Provider Speciality Pain Medic ine Referred Organization [facility] Referred Provider Jan Ocasio Referred Address [address] [place] [id number], Referred Provider Specialty Pain Medicin e General Notes Rozina Davila 0 06/29/2024 09:40:47 AM >Patient is calling insurance to get something figured out., Samara Horner A 06/29/2024 10:41:33 AM >pt switched to PPO plan today. Ins will be in effect July 17 npp, patient is scheduled Referral Priority Routine Medications Medication SIG (Take, Route, Frequency, Duration) Notes Start Date End Date Status Otezla 30 MG Tablet 1 tablet Orally Twic e a day Active Citalopram Hydrobromide 40 M G Tablet 0.5 tablet Orally Once a day Active Lisinopril 20 MG Tablet 1 tablet Orally Once a day Active Atorvastatin Calcium 40 MG Tablet 1 tablet Orally Once a day Active Hydroxychloroquine Sulfate 2 00 MG Tablet as directed Orally Active Calcium 600 MG Tablet 1 tablet with meal s Orally Twice a day Active Temazepam 30 MG Capsule 1 capsule at bed time as needed Orally Once a day Active Azithromycin 500 MG Tablet 1 tablet Oral ly Once a day Active Aspirin 81 81 MG Tablet Delayed Release 1 tablet Orally Once a day Active Vitamin B12 Active Vitamin D3 Active oxyCODONE-Acetaminophen 7.5-325 MG Tablet 1 tablet as needed Orally every 6 hrs Active Ethambutol HCl 400 MG Tablet as directed Orally Active predniSONE 20 MG Tablet 1 tablet with fo od or milk Orally Once a day Active rifAMPin 300 MG Capsule as directed Orally Active Gabapentin 800 MG Tablet 1 tablet Orally Once a day Active Social History Tobacco Use: Social History Observation Description Date Details (start date - stop date) Current Smoker NA - NA Social History Tobacco Use: Social Info Question Answer Notes Tobacco Control (Standard) Tobacco use: Current smoker How many cigarettes a day do you smoke? - Additional Details Category Social Info Options Details Miscellaneous: Sexually active: no Sexual abuse: no Drugs/Alcohol: Do you smoke marijuana? De nies Do you drink alcohol? No Problems Problem Type SNOMED Code ICD Code Onset Dates Problem Status W/U Status Risk Notes Problem Chronic pain syndrome (471331376) Chronic pain syndrome (G89.4) Active confirmed Problem Lumbosacral spondylosis without myelopathy (48076953) Spondylosis without myelopathy or radiculopathy, lumbar region (M47.816) Active confirmed Problem Lumbar radiculopathy (662483578) Lumbar radiculopathy (M54.16) Active confirmed Problem Lumbar spondylosis (781575698) Lumbar spondylosis (M47.816) Active confirmed Problem Cervical spondylosis (461071688) Cervical spondylosis (M47.812) Active confirmed Problem Solitary sacroiliitis (961398562) 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) Active confirmed Problem Abnormal gait (37138863) Abnormality of gait and mobility (R26.9) Active confirmed Vital Signs Height-cm 182.88 cm 10/26/2024 Weight-kg 83.92 kg 10/26/2024 Height 72 in 10/26/2024 Weight 185 lbs 10/26/2024 BMI 25.09 kg/m2 10/26/2024 Encounters Encounter Location Date Provider Diagnosis [facility] [place] [address] [place] [address] 10/26/2024 Quirino So Chronic pain syndrom e G89.4 ; Cervical spondylosis M47.812 ; Other spondylosis with radiculopathy, lumbar region M47.26 ; Sacroiliac inflammation M46.1 ; Abnormality of gait and mobility R26.9 ; skilled nursing (current) use of opiate analgesic Z79.891 ; Lumbar radiculopathy M54.16 and Lumbar spondylosis M47.816 Assessments Encounter Date Diagnosis (ICD Code) Assessment Notes Treatment Notes Treatment Clinical Notes Section Notes 10/26/2024 Chronic pain syndrome (ICD-10 - G89.4) I had a nice visit with the patient today regarding his chronic pain issues. Based on his history, physical exam, and imaging, which I reviewed, his pain appears multifactorial. His symptoms appear consistent with lumbar spondylosis with radiculitis and cervical spondylosis and radiculitis. It sounds like he was pursuing the SCS and got a referral to Dr. Streeter for a surgical clearance. recommended a larger surgery. This doesn't seem unreasonable. We will wait to see how he responds. He has plenty of Percocet for now, so no new prescription was provided today. We can decide how to proceed and what treatments may be appropriate when we follow up in 6 weeks to see how he is and proceed accordingly. 10/26/2024 Cervical spondylosis (ICD-10 - M47.812) 10/26/2024 Other spondylosis with radiculopathy, lumbar region (ICD-10 - M47.26) 10/26/2024 Sacroiliac inflammation (ICD-10 - M46.1) 10/26/2024 Abnormality of gait and mobility (ICD-10 - R26.9) 10/26/2024 superintendent container terminal (current) use of opiate analgesic (ICD-10 - Z79.891) 10/26/2024 Lumbar radiculopathy (ICD-10 - M54.16) 10/26/2024 Lumbar spondylosis (ICD-10 - M47.816) 10/26/2024 Other I, Kirsten Kebede, am scribing for Dr. Quirino So. I, Dr. Quirino So, personally performed the services described in this documentation, as scribed by Kirsten Kebede, and it is both accurate and complete. Plan Of Treatment Next Appt Details Provider Name:Quirino So, 12/07/2024 01:40:00 PM, [address] [facility] [place], [address], Provider Name:Umair Roland, 12/20/2024 10:00:00 AM, [address] [place], [address], Insurance Providers Payer Name Payer Address Payer Phone Subscriber Number Group Number Insured Name Patient Relationship to Insured Coverage Start Date Coverage End Date UHC Medicare Dual Complete PPO [address] [address] [place] [address] [id number] Arelis Couch Self - patient is the insured [place] Medicaid [address] [place] [address] [id number] Singh Arelis castro Self - patient is the insured NOT IN NETWORK - UHC Medicare Dual Complete HMO [address] [address] [place] [phone] [id number] [employer] Arelis Couch Self - patient is the insured Medical (General) History Medical History History ICD Code alpha-gal High Blood Pressure Diabetes Hypoglycemia bronchitis/emphysema glaucoma Arthritis kidney infection Surgical History Surgery Date(Month/Year) Angioplasty 2015 Cardiac Stents 2020 gall bladder removal Prostate Surgery 2023 Inspire Implant (Yvette Ramirez) 2023 Colonoscopy 2011
--- OUTSIDE RECORDS SUMMARY | 2024-12-05 20:41 | XMS_ITS | Encounter Summary ---
Author Organization [facility] Address [address] [place] [address] Phone Care Team Providers Care Office Machines Teacher Name Role Phone Elis Keller RN Unavailable Chano Parks MD Unavailable [phone] Sarah Kay MD Unavailable [phone] Pat Edwards MD Unavailable [phone] Datar, Jose Guadalupe Sosa MD Unavailable Gilles Estrella MD Unavailable [phone] Laverne Logan RN Unavailable Lorie Mccormack CHIEF CREATIVE OFFICER Primary Care Provider + Henrietta Schneider MD Unavailable Acacia Wells NP Unavailable Delmy Hagan Unavailable Unavailable Encounter Details Date Type Department Care Team (Late st Contact Info) Description 12/03/2023 Orders Only [facility] Scanning, Provider Social History Tobacco Use Types Packs/Day Years Used Date Smoking Tobacco: Former Cigarettes 1.5 20 0 05/12/2003 - 05/12/2023 Smokeless Tobacco: Never [facility] Utilities Answer Date Recorded In the past 12 months has [employer] electric, gas, oil, or water company threatened [...] often do you attend chur ch or latter day services? Never 10/09/2023 Do you belong to any clubs o r organizations such as adventism groups, unions, fraternal or athletic groups, or [...] any time in the past 12 m [facility], were you homeless or living in a residential (including now)? No 10/09/2023 Personal Safety Answer [...] Date/Time Associated Diagnosis Comments SCAN - LABS 12/03/2023 documented in this encounter Results * SCAN - LABS (12/03/2023) us Provider Scanning Final Result documented in this encounter Visit Diagnoses Not on filedocumented in this encounter Additional Health Concerns Infection Onset Date Last Indicated Resolved Time Tuberculosis (rule out) Comment:02/11/2024 IP Review: AFB identified as nonMTB organism. Umm Olsen RN Sputum AFB stain + 12/29/2023 12/29/2023 02/11/2024 10:50 AM SECURITY ADVISOR documented as of this encounter Care Teams Office Machines Teacher Relationship Specialty Start Date End Date Lorie Mccormack NP [address] [place] [address] PCP - General Family Medicine 09/11/23 Elis Keller, RICHARD [address] [place] [address] Risk Assessment Analyst 07/23/23 Chano Parks MD [address] [facility] [address] [place] [address] Referring Physician Transplant 07/23/23 Sarah Kay MD [address] [place] [address] Referring Physician Cardiovascular Disease 07/24/23 Pat Edwards MD [address] [place] [address] [place] [address] Internal Medicine 07/24/23 Datar, Jose Guadalupe Sosa MD [address] [place] [address] Internal Medicine 07/24/23 Gilles Estrella MD [address] [place] [address] Graduate Intern Transplant 09/03/23 Laverne Logan, RICHARD [address] [address] Heart Failure Coordinator Risk Assessment Analyst 09/03/23 Henrietta Schneider MD [address] [place] [id number] Nephrology 09/29/23 Acacia Wells NP [address] [place] [phone] 09/29/23 Delmy Hagan Primary Refrigerated Company Driver 11/03/24 documented as of this encounter
--- OUTSIDE RECORDS SUMMARY | 2024-12-05 20:41 | XMS_ITS | Data Portability ---
Author Organization [place] [facility] [place], ADMIN Address [address] [place] [address] Care Team Providers Care Kier Pleater Name Role Phone [facility] Neph rologist Assessment Encounter Date Assessment Date Assessment LastModified by Organization Details LastModified Time 08/15/2022 08/15/2022 This is a 56-yea r-old male who presents for follow-up. Patient continues to have diarrhea. Colonoscopy 07/25/2022 revealed small hemorrhoids, moderate sigmoid diverticulosis, 4 mm red spots involving the cecum otherwise normal examination and TI. Random colon, TI and red spot biopsies are pending at time of dictation. EGD revealed a 4 sodomy had a hernia and gastritis. Patient is on Protonix [address] scan of the abdomen pelvis with contrast 06/04/2022 revealed known polycystic kidney disease, hepatic cyst, previous cholecystectomy, normal appendix, moderate sigmoid diverticulosis. Laboratory studies 05/20/2022 revealed negative celiac sprue, PT 10.0, INR 0.9, TSH 1.59, WBC 9.2, hemoglobin 12.9, hematocrit 37.4, MCV 93.8, platelets 314, BUN 33, creatinine 2.2, sodium 135, potassium 4.9, chloride 104, CO2 22, albumin 3.5, albumin alk phos 54, AST 17, ALT 19, lipase 67, amylase 101, sed rate 25, C-reactive protein 1.90. Patient received cardiac clearance to undergo endoscopic evaluation and to hold the Plavix. Laboratory studies on 05/20/2022; WBC 9.2, hemoglobin 12.9, hematocrit 37.4, MCV 93.8, platelets 314, amylase 101, BUN 33, creatinine 2.2, sodium 135, potassium 4.9, chloride 104, CO2 22, albumin 3.5, AST 17, ALT 719, C-reactive protein 1.9, lipase 67, TSH 1.59, PT 10.0, INR 0.9, sed rate 25, celiac sprue negative. The patient states that he had a CT scan done approximately 1 month ago and was told he had polycystic changes. Patient does have a history of congestive heart failure. He reports having intermittent swelling of his right upper quadrant. The patient was initially seen for evaluation of GERD, unexplained diarrhea and family history of Crohn's disease. Patient states that he underwent an EGD and colonoscopy approximately 1 year ago. Patient was told he had inflammation of the colon. Copy of this report is not available at time dictation. Patient reports having persistent diarrhea causing dehydration and electrolyte abnormalities. Patient has a history of GERD and is on Protonix. The patient has had a cholecystectomy, hernia repair and stent placement in the past. Last intracoronary stent was 2014. He had peripheral vascular stenting in December 2021. Patient continues to smoke cigarettes. He denies abnormalities. He reports a family history of Crohn's disease in his mother. The patient had previously been on Plavix but discontinued due to intolerance. Follow-up Impression: 1. Chronic diarrhea. Etiology unclear. Status post EGD and colonoscopy. Biopsies pending. Previous cholecystectomy. 2. Colonic diverticulosis 3. Family history of Crohn's disease in mother 4. GERD; Protonix 40 mg daily 5. Status postcholecystectomy 6. Antiplatelet therapy 7. Acute kidney injury 8. Polycystic liver 9. Other medical issues: Dyslipidemia, peripheral vascular disease, tobacco use Recommendations: 1. Start cholestyramine 1 scoop at 8 PM daily for treatment of postcholecystectomy diarrhea 2. Protonix 40 mg p.o. daily 3. Low FODMAP diet 4. Plavix therapy 5. Follow-up in 2 weeks for clinical reassessment [email or web address] Not available 08/15/2022 15:39:09 09/18/2022 09/18/2022 This is a 56-year-old male who presents for follow-up. The patient was started on cholestyramine for suspected postcholecystectomy diarrhea. The patient reports a 30 to 40% improvement. The patient is not taking Protonix. He stopped several months ago. Patient is not taking metformin. The patient reports having postprandial rectal urgency and diarrhea. Patient feels that his symptoms may be related to irritable bowel syndrome. The patient states that he is not consuming any sugary drinks. Colonoscopy 07/25/2022 revealed small hemorrhoids, moderate sigmoid diverticulosis, 4 mm red spots involving the cecum otherwise normal examination and TI. Random colon, TI and red spot biopsies are pending at time of dictation. EGD revealed a 4 cm hiatal hernia and gastritis. Biopsy results of the terminal ileum were normal, colon biopsies revealed no microscopic colitis, red spot revealed normal colonic mucosa, GE junction biopsies revealed mild reactive changes, duodenal biopsies revealed normal villous structure no celiac sprue, gastric biopsies revealed no H. pylori infection. The patient sees nephrology in [place]. Patient has a history of polycystic disease. CT scan of the abdomen pelvis with contrast 06/04/2022 revealed known polycystic kidney disease, hepatic cyst, previous cholecystectomy, normal appendix, moderate sigmoid diverticulosis. Laboratory studies 05/20/2022 revealed negative celiac sprue, PT 10.0, INR 0.9, TSH 1.59, WBC 9.2, hemoglobin 12.9, hematocrit 37.4, MCV 93.8, platelets 314, BUN 33, creatinine 2.2, sodium 135, potassium 4.9, chloride 104, CO2 22, albumin 3.5, albumin alk phos 54, AST 17, ALT 19, lipase 67, amylase 101, sed rate 25, C-reactive protein 1.90. Patient received cardiac clearance to undergo endoscopic evaluation and to hold the Plavix. Laboratory studies on 05/20/2022; WBC 9.2, hemoglobin 12.9, hematocrit 37.4, MCV 93.8, platelets 314, amylase 101, BUN 33, creatinine 2.2, sodium 135, potassium 4.9, chloride 104, CO2 22, albumin 3.5, AST 17, ALT 719, C-reactive protein 1.9, lipase 67, TSH 1.59, PT 10.0, INR 0.9, sed rate 25, celiac sprue negative. The patient states that he had a CT scan done approximately 1 month ago and was told he had polycystic changes. Patient does have a history of congestive heart failure. He reports having intermittent swelling of his right upper quadrant. The patient was initially seen for evaluation of GERD, unexplained diarrhea and family history of Crohn's disease. Patient states that he underwent an EGD and colonoscopy approximately 1 year ago. Patient was told he had inflammation of the colon. Copy of this report is not available at time dictation. Patient reports having persistent diarrhea causing dehydration and electrolyte abnormalities. Patient has a history of GERD and is on Protonix. The patient has had a cholecystectomy, hernia repair and stent placement in the past. Last intracoronary stent was 2014. He had peripheral vascular stenting in December 2021. Patient continues to smoke cigarettes. He denies abnormalities. He reports a family history of Crohn's disease in his mother. The patient had previously been on Plavix but discontinued due to intolerance. Follow-up Impression: 1. Chronic diarrhea. Etiology unclear. Status post EGD and colonoscopy. Biopsy results revealed no evidence of microscopic colitis or ileitis or celiac sprue.. Patient is status post cholecystectomy. Patient reports a 30 to 40% improvement of his symptoms with cholestyramine for postcholecystectomy diarrhea. Patient feels his symptoms may be related to IBS. 2. Colonic diverticulosis 3. Family history of Crohn's disease in mother 4. GERD; Protonix 40 mg daily 5. Status postcholecystectomy 6. Antiplatelet therapy with Plavix 7. Polycystic liver 8. Anticoagulated on Plavix 9. Chronic kidney injury. Patient has polycystic kidney disease. Patient sees nephrology in [place] 10. Other medical issues: Dyslipidemia, peripheral vascular disease, tobacco use Recommendations: 1. Increase cholestyramine 1 scoop twice daily. I advised patient to take medication so he can allow 2-hour window 2. Levsin 0.125 mg every 6 hours (with meals) for treatment of suspected IBS 3. Antireflux precautions. Patient states that he discontinue Protonix 4. Low FODMAP diet 5. Follow-up in 2 weeks for clinical reassessment [email or web address] Not available 09/18/2022 19:39:38 10/16/2022 10/16/2022 This is a 56-year-old male who presents for follow-up. The patient reports that his diarrhea has improved with increasing cholestyramine to twice daily. The patient is also taking hyoscyamine. He reports having rectal urgency. The patient states that approximately 10 years ago a physician had given him IBgard and Xifaxan. The patient had improvement of his symptoms. The patient was started on cholestyramine for suspected postcholecystectomy diarrhea. The patient reports a 30 to 40% improvement. The patient is not taking Protonix. He stopped several months ago. Patient is not taking metformin. The patient reports having postprandial rectal urgency and diarrhea. Patient feels that his symptoms may be related to irritable bowel syndrome. The patient states that he is not consuming any sugary drinks. Colonoscopy 07/25/2022 revealed small hemorrhoids, moderate sigmoid diverticulosis, 4 mm red spots involving the cecum otherwise normal examination and TI. Random colon, TI and red spot biopsies are pending at time of dictation. EGD revealed a 4 cm hiatal hernia and gastritis. Biopsy results of the terminal ileum were normal, colon biopsies revealed no microscopic colitis, red spot revealed normal colonic mucosa, GE junction biopsies revealed mild reactive changes, duodenal biopsies revealed normal villous structure no celiac sprue, gastric biopsies revealed no H. pylori infection. The patient sees nephrology in [place]. Patient has a history of polycystic disease. CT scan of the abdomen pelvis with contrast 06/04/2022 revealed known polycystic kidney disease, hepatic cyst, previous cholecystectomy, normal appendix, moderate sigmoid diverticulosis. Laboratory studies 05/20/2022 revealed negative celiac sprue, PT 10.0, INR 0.9, TSH 1.59, WBC 9.2, hemoglobin 12.9, hematocrit 37.4, MCV 93.8, platelets 314, BUN 33, creatinine 2.2, sodium 135, potassium 4.9, chloride 104, CO2 22, albumin 3.5, albumin alk phos 54, AST 17, ALT 19, lipase 67, amylase 101, sed rate 25, C-reactive protein 1.90. Patient received cardiac clearance to undergo endoscopic evaluation and to hold the Plavix. Laboratory studies on 05/20/2022; WBC 9.2, hemoglobin 12.9, hematocrit 37.4, MCV 93.8, platelets 314, amylase 101, BUN 33, creatinine 2.2, sodium 135, potassium 4.9, chloride 104, CO2 22, albumin 3.5, AST 17, ALT 719, C-reactive protein 1.9, lipase 67, TSH 1.59, PT 10.0, INR 0.9, sed rate 25, celiac sprue negative. The patient states that he had a CT scan done approximately 1 month ago and was told he had polycystic changes. Patient does have a history of congestive heart failure. He reports having intermittent swelling of his right upper quadrant. The patient was initially seen for evaluation of GERD, unexplained diarrhea and family history of Crohn's disease. Patient states that he underwent an EGD and colonoscopy approximately 1 year ago. Patient was told he had inflammation of the colon. Copy of this report is not available at time dictation. Patient reports having persistent diarrhea causing dehydration and electrolyte abnormalities. Patient has a history of GERD and is on Protonix. The patient has had a cholecystectomy, hernia repair and stent placement in the past. Last intracoronary stent was 2014. He had peripheral vascular stenting in December 2021. Patient continues to smoke cigarettes. He denies abnormalities. He reports a family history of Crohn's disease in his mother. The patient had previously been on Plavix but discontinued due to intolerance. Follow-up Impression: 1. Chronic diarrhea. -- Improvement with cholestyramine 1 scoop twice daily -- possible SIBO -- possible IBS --Etiology unclear. --Status post EGD and colonoscopy. Biopsy results revealed no evidence of microscopic colitis or ileitis or celiac sprue.. Patient is status post cholecystectomy. Patient reports a 30 to 40% improvement of his symptoms with cholestyramine for postcholecystectomy diarrhea. Patient feels his symptoms may be related to IBS. 2. Colonic diverticulosis 3. Family history of Crohn's disease in mother 4. GERD; Protonix 40 mg daily 5. Status postcholecystectomy 6. Antiplatelet therapy with Plavix 7. Polycystic liver 8. Anticoagulated on Plavix 9. Chronic kidney injury. Patient has polycystic kidney disease. Patient sees nephrology in [place] 10. Other medical issues: Dyslipidemia, peripheral vascular disease, tobacco use Recommendations: 1. No objection to patient to take IBgard 2. Xifaxan 550 mg twice daily x10 days for SIBO 3. Continue cholestyramine 1 scoop twice daily 4. Continue Levsin/hyoscyamine 0.125 mg every 6 hours as needed for abdominal pain/urgency 5. Maintain low FODMAP diet 6. Give consideration to a trial of pancreatic enzyme replacement if symptoms continue 7. Follow-up in 4 weeks. [email or web address] Not available 10/16/2022 18:33:43 11/27/2022 11/27/2022 Impression: 1. Chronic diarrhea. --Improvement with cholestyramine 1 scoop twice daily --possible SIBO --possible IBS --Etiology unclear. --Status post EGD and colonoscopy. Biopsy results revealed no evidence of microscopic colitis or ileitis or celiac sprue.. Patient is status post cholecystectomy. Patient reports a 30 to 40% improvement of his symptoms with cholestyramine for postcholecystectomy diarrhea. Patient feels his symptoms may be related to IBS. 2. Abdominal discomfort in left side. 3. Family history of Crohn's disease in mother 4. GERD; Protonix 40 mg daily 5. Status postcholecystectomy 6. Antiplatelet therapy with Plavix 7. Polycystic liver 8. Anticoagulated on Plavix 9. Chronic kidney injury. Patient has polycystic kidney disease. Patient sees nephrology in [place] 10. Other medical issues: Dyslipidemia, peripheral vascular disease, tobacco use Recommendations: 1, Obtain CMP alpha-gal, Fecal fat and pancreatic elastase. 2, Schedule CT scan abdomen and pelvis with contrast for left sided abdominal pain. 3. No objection to patient to take IBgard 4. Continue cholestyramine 1 scoop twice daily 5. Continue Levsin/hyoscyamine 0.125 mg every 6 hours as needed for abdominal pain/urgency 6. Maintain low FODMAP diet 7. Give consideration to a trial of pancreatic enzyme replacement if symptoms continue 8. Follow-up in 4 weeks. [email or web address] Not available 11/27/2022 17:19:35 12/11/2022 12/11/2022 Impression: 1. Chronic diarrhea; Alpha-gal positive --Improvement with cholestyramine 1 scoop twice daily --Status post EGD and colonoscopy. Biopsy results revealed no evidence of microscopic colitis or ileitis or celiac sprue.. Patient is status post cholecystectomy. Patient reports a 30 to 40% improvement of his symptoms with cholestyramine for postcholecystectomy diarrhea. Patient feels his symptoms may be related to IBS. 2. Alpha-gal positive 3. Abdominal discomfort in left side; improved with mammal free diet. 4. Polycystic liver and kidney disease 5. GERD; Protonix 40 mg daily 6. Family history of Crohn's disease in mother 7. Status postcholecystectomy 8. Antiplatelet therapy with Plavix 9. Other medical issues: Dyslipidemia, peripheral vascular disease, tobacco use Recommendations: 1. Obtain MRCP abdomen and pelvis 2. Refer to [facility] for polycystic kidney and liver disease 3. Obtain tick panel 4. Obtain chronic liver workup 5. Refer to urology due to weak urinary stream and enlarged prostate 6. No objection to patient to take IBgard 7. Continue cholestyramine 1 scoop twice daily 8. Continue Levsin/hyoscyamine 0.125 mg every 6 hours as needed for abdominal pain/urgency 9. Follow-up in 4 weeks. [email or web address] Not available 12/11/2022 16:49:46 Plan of Treatment Reminders Order Date Submit Date Provider Last Modified By Organization Details Last Modified Time Details Appointments None recorded . Lab celiac disease comprehe nsive panel, serum 2022 023 [facility] (Lab)_do Not Use, [address], [place], [address], 3 15:11:02 mitochon drial Ab titer, serum 2022 023 [facility] (Lab)_do Not Use, [address], [place], [address], 3 15:11:02 hepatiti s C liver status biomarke r panel, serum 2022 023 [facility] (Lab)_do Not Use, [address], [place], [address], 3 15:11:02 PT/INR [address] (Lab), [address], [place], [address], 3 09:41:07 TSH, serum or plasma [address] (Lab)_do Not Use, [address], [place], [address], 3 09:41:07 lipid panel, serum 2022 023 [email or web address] [facility] (Lab)_do Not Use, [address], [place], [address], 3 09:41:07 CBC w/ auto diff [address] (Lab)_do Not Use, [address], [place], [address], 3 09:41:07 CMP, serum or plasma [address] (Lab)_do Not Use, [address], [place], [address], 3 09:41:07 mitochon drial Ab, serum 2022 023 [facility] (Lab)_do Not Use, [address], [place], [address], 3 15:11:02 hepatiti s panel (A+B+C), acute, serum [address] [facility] (Lab), [address], [place], [address], 3 06:09:46 cerulopl asmin, serum [address] [facility] (Lab), [address], [place], [address], 3 07:24:34 iron, serum 2022 023 [facility] (Lab), [address], [place], [address], 3 15:11:02 TIBC (total iron-bin ding capacity ), serum 2022 [facility] (Lab), [address], [place], [address], 3 15:11:03 ferritin , serum or plasma 2022 [facility] (Lab), [address], [place], [address], 3 15:11:03 transfer rin, serum 2022 [facility] (Lab), [address], [place], [address], 3 07:24:32 afp (alpha-f etoprote in) tumor marker, serum or plasma 2022 [facility] (Lab)_do Not Use, [address], [place], [place], [address], 3 15:11:03 alpha-1- antitryp sin (aat) phenotyp e, serum 2022 [facility] (Lab), [address], [place], [address], 3 15:11:03 ANASTASIA (antinuc lear antibodi es) screen, ifa, serum 2022 [facility] (Lab)_do Not Use, [address] [place], [address], 3 05:47:30 smooth muscle Ab, serum 2022 [facility] (Lab), [address], [place], [address], 3 15:11:03 tick-bor ne disease panel 2022 023 [facility] (Lab)_do Not Use, [address], [place], [address], 3 16:51:56 alpha-ga l ige, serum 2022 023 [facility] (Lab)_do Not Use, [address], [place], [address], 3 09:20:02 beef ige, serum 2022 023 [facility] (Lab)_do Not Use, [address], [place], [address], 3 09:20:02 pork ige, serum 2022 023 [facility] (Lab)_do Not Use, [address], [place], [address], 3 09:20:02 venison IgE Ab, serum 2022 023 [facility] (Lab)_do Not Use, [address], [place], [address], 3 10:10:48 pancreat ic elastase , stool 2022 023 [email or web address] [facility] (Lab)_do Not Use, [address], [place], [address], 3 10:20:02 fecal fat, qualitat dari, stool 2022 023 [facility] (Lab)_do Not Use, [address], [place], [address], 3 10:15:41 BMP, serum or plasma 2022 [facility] (Lab)_do Not Use, [address], [place], [address], 3 10:15:41 hepatic function panel, serum 2022 [facility] (Lab)_do Not Use, [address], [place], [address], 3 10:15:41 Referral nephrolo gist referral - division of renal disease 2022 [facility], [facility] [place], [address], 13:22:16 hepatobi liary referral 2022 [facility], [address] [facility], [facility], [place], [address], 3 13:22:18 Procedures None recorded . Surgeries None recorded . Imaging None recorded . Medication Orders Xifaxan 550 mg tablet 2022 023 [facility] [place], [address] [place], [address], 3 16:08:01 Questran 4 gram oral powder 2022 023 [facility] [place], [address] [place], [address], 3 13:13:43 Levsin 0.125 mg tablet 2022 023 [facility] [place], [address] [place], [address], 14:22:25 Questran 4 gram oral powder 2022 023 [email or web address] [facility] [place], [address] [place], [address], 00:45:05 Patient TargetsNo targets recorded. 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 Referring Physician: Camille Silva, Gastroenterology, Encounter Date: 12/11/2022 Hepatobiliary Referral for L iver cyst Referring Physician: Camille Silva, Gastroenterology, Encounter Date: 12/11/2022 Results Created Date Observation Date Name Description Value Unit Range Abnormal Flag Note LastModifiedBy Organization Detail LastModifiedTime 07/26/1907/25/2022 GLUCO SE LEVEL POC BEDSI DE glu POC bdside 65 mg/dL 65-90 Opera tor ID: [id number] Not Available [facility] (Lab) [address] [place] [address], [address], 07/25/2022 08:45:11 11/28/1911/27/2022 BILIR UBIN DIREC T bili direct 0.1 mg/dL 0.1-0. 2 Not Available [facility] (Lab) [address] [place], [address], 11/27/2022 20:44:44 11/28/19 23 11/27/2022 COMPR EHENS DARI METAB OLIC PROFI LE eGFR 32 mL/mi n/1.7 3_m2 >=90 low CKD is defin ed by the prese nce of glome rular filtr ation rate (GFR) <60 mL for >3 month s and/o r evide nce of kidne y damag e (eg, struc tural abnor malit ies, histo logic abnor malit ies, album inuri a, urina ry sedim ent abnor malit ies, renal tubul ar disor ders, and/o r histo ry of kidne y trans plant ation ) for >3mon ths. This table provi bradley inter preta tion of speci fic eGFR value s. Creat inine measu remen ts, and there fore eGFR calcu latio ns, are affec jeremie by very high or very low muscl e mass, muscl e injur y, a diet very high in meat, hepat ic cirrh osis, certa in drugs , etc. Stage s of CKD: Stage Descr iptio n GFR mL/mi n 1 Kidne y damag e with lisa l or incre ased GFR 90 2 Kidne y damag e with mild decre ase in GFR 60 to 89 3 Moder ate decre ase in GFR 30 to 59 4 Sever e decre ase in GFR 15 to 29 5 Kidne y failu re <15 (or dialy sis) Note: GFR Lisa l range >60, equat ion not valid ated for ages <18 and >70 and pregn ant women . Not Available [facility] (Lab) [address] [place] [address], [place], [address], 11/27/2022 20:44:45 11/28/19 23 11/27/2022 COMPR EHENS DARI METAB OLIC PROFI LE glucose 166 mg/dL 71-109 high Not Available [facility] (Lab) [address] [place] [address], [address], 11/27/2022 20:44:45 11/28/19 23 11/27/2022 COMPR EHENS DARI METAB OLIC PROFI LE BUN 33 mg/dL 8-17 high Not Available [facility] (Lab) [address] [place] [address], [address], 11/27/2022 20:44:45 11/28/19 23 11/27/2022 COMPR EHENS DARI METAB OLIC PROFI LE creatinine 2.3 mg/dL 0.6-1. 3 high Not Available [facility] (Lab) [address], [place], [address], 11/27/2022 20:44:45 11/28/1911/27/2022 COMPR EHENS DARI METAB OLIC PROFI LE BUN/crea ratio 14.35 6.01-1 9.99 Not Available [facility] (Lab) [address] [facility], [place], [address], 11/27/2022 20:44:45 11/28/1911/27/2022 COMPR EHENS DARI METAB OLIC PROFI LE sodium 132 mmol/ L 136-14 9 low Not Available [facility] (Lab) [address] [facility], [place], [address], 11/27/2022 20:44:45 11/28/19 23 11/27/2022 COMPR EHENS DARI METAB OLIC PROFI LE potassium 5.6 mEq/L 3.6-5. 2 high Not Available [facility] (Lab) [address] [facility], [place], [address], 11/27/2022 20:44:45 11/28/19 23 11/27/2022 COMPR EHENS DARI METAB OLIC PROFI LE chloride 100 mmol/ L 96-109 Not Available [facility] (Lab) [address], [place], [address], 11/27/2022 20:44:45 11/28/19 23 11/27/2022 COMPR EHENS DARI METAB OLIC PROFI LE carbon dioxide 23 mmol/ L 22-33 Not Available [facility] (Lab) [address] [facility] [address], [place], [address], 11/27/2022 20:44:45 11/28/19 11/27/2022 COMPR EHENS DARI METAB OLIC PROFI LE calcium 8.6 mg/dL 8.6-10 .0 Not Available [facility] (Lab) [address] [facility], [place], [address], 11/27/2022 20:44:45 11/28/19 23 11/27/2022 COMPR EHENS DARI METAB OLIC PROFI LE Ca corrected 8.9 mg/dL 8.6-10 .0 Not Available [facility] (Lab) [address] [facility], [place], [address], 11/27/2022 20:44:45 11/28/1911/27/2022 COMPR EHENS DARI METAB OLIC PROFI LE prot total 6.6 g/dL 6.5-8. 2 Not Available [facility] (Lab) [address] [place] [address], [place], [address], 11/27/2022 20:44:45 11/28/19 23 11/27/2022 COMPR EHENS DARI METAB OLIC PROFI LE albumin 3.6 g/dL 3.6-4. 9 Not Available [facility] (Lab) [address] [facility], [place], [address], 11/27/2022 20:44:45 11/28/19 23 11/27/2022 COMPR EHENS DARI METAB OLIC PROFI LE globulin 3 no reference range Not Available [facility] (Lab) [address] [facility], [place], [address], 11/27/2022 20:44:45 11/28/19 23 11/27/2022 COMPR EHENS DARI METAB OLIC PROFI LE albumin/glob ulin ratio 1.20 1.01-2 .49 Not Available [facility] (Lab) [address] [facility], [place], [address], 11/27/2022 20:44:45 10/1211/27/2022 COMPR EHENS DARI METAB OLIC PROFI LE anion gap 9.0 mmol/ L 3.1-10 .9 Not Available [facility] (Lab) [address] [facility], [place], [address], 11/27/2022 20:44:45 11/28/1911/27/2022 COMPR EHENS DARI METAB OLIC PROFI LE alkaline phosphatase 46 U/L 51-135 low Not Available [facility] (Lab) [address] [place] [address], [place], [address], 11/27/2022 20:44:45 11/28/19 23 11/27/2022 COMPR EHENS DARI METAB OLIC PROFI LE AST 18 U/L 16-36 Not Available [facility] (Lab) [address] [place] [address], [place], [address], 11/27/2022 20:44:45 11/28/19 23 11/27/2022 COMPR EHENS DARI METAB OLIC PROFI LE ALT 21 U/L 31-64 low Not Available [facility] (Lab) [address] [place] [address], [place], [address], 11/27/2022 20:44:45 11/28/1911/27/2022 COMPR EHENS DARI METAB OLIC PROFI LE bili total 0.3 mg/dL 0.1-0. 9 Not Available [facility] (Lab) [address] [place] [address], [place], [address], 11/27/2022 20:44:45 11/28/19 23 11/27/2022 COMPR EHENS DARI METAB OLIC PROFI LE osmol calc 276 mOsm/ kg 276-29 4 Not Available [facility] (Lab) [address] [place] [address], [place], [address], 11/27/2022 20:44:45 11/28/19 23 12/02/2022 PORK IGE - SEND OUT CQ pork cq 0.55 <0.10 high Not Available [facility] (Lab) [address] [facility], [place], [address], 12/02/2022 20:00:00 11/28/19 23 12/02/2022 PORK IGE - SEND OUT CQ pork cls cq 1 >0 high Lab test perfo rmed by: Lab Mnemo rosa isela: AMD [facility] [id number] [place], [place] Modesta Brennan MD PhD Not Available [facility] (Lab) [address] [facility], [place], [address], 12/02/2022 20:00:00 11/28/1912/02/2022 BEEF (F27) IGE - SEND OUT CQ beef cq 0.87 <0.10 high Not Available [facility] (Lab) [address] [facility], [place], [address], 12/02/2022 20:00:01 11/28/19 23 12/02/2022 BEEF (F27) IGE - SEND OUT CQ beef cls cq 2 >0 high INTER PRETA TION SPECI FIC LEVEL OF ALLER GEN IgE CLASS kU/L SPECI FIC IgE ANTIB FLAQUITO ----- ---- ----- ---- ----- ----- ----- ----- - 0 <0.10 Absen t/Und etect able 0/1 0.10- 0.34 Very Low Level 1 0.35- 0.69 Low Level 2 0.70- 3.49 Moder ate Level 3 3.50- 17.4 High Level 4 17.5- 49.9 Very High Level 5 50-10 0 Very High Level 6 >100 Very High Level The clini bo relev ance of aller gen resul ts of 0.10- 0.34 kU/L are undet ermin ed and inten ded for speci alist use. Aller gens denot ed with a inclu de resul ts using one or more romeo te speci fic reage nts. In those cases , the test was devel oped and its romeo tical perfo rmanc e grant cteri stics have been deter mined by [facility]. It has not been clear ed or appro mirian by the U.S. Food and Drug Admin istra tion. The FDA has deter mined that such clear ance or appro carmelita is not neces destiny. This assay has been valid ated pursu ant to the CLIA regul ation s and is used for clini bo purpo ses. Lab test perfo rmed by: Lab Mnemo rosa isela: AMD [facility] [address] [place], [place] Modesta Brennan MD PhD Not Available [facility] (Lab) [address] [place] [address], [place], [address], 12/02/2022 20:00:01 11/28/19 23 12/03/2022 GALAC TOSE- ALPHA -1,3- GALAC TOSE (ALPH A-GAL galactosealp haige cq 1.54 kunit s/L <0.10 high Resul ts above 0.1 kU/L indic ate an aller gen-s pecif ic IgE sensi tizat ion to galac tose- a-1,3 -gala ctose , and such patie nts are at risk for delay ed aller gic react ions follo wing beef, pork, or mauro consu mptio n. Circu latin g IgE antib odies may remai n undet ectab le despi te a convi ncing clini bo histo ry becau se these antib odies may be direc jeremie towar ds aller gens revea led or alter ed durin g indus trial proce ssing , cooki ng, or diges tion and there fore do not exist in the origi nal food for which the patie nt is teste d. Somet imes indiv idual s diagn osed with chron ic urtic aria may devel op IgE antib odies direc jeremie again st human thyro globu melvin. Such antib odies may cross -reac t with the bovin e thyro globu melvin used in Immun oCAP( R) Aller gen o215, alpha -Gal, leadi ng to a false -posi tive test resul t. A defin itive diagn osis shoul d be based on the evalu ation of both clini bo and labor atory findi ngs and not on any singl e diagn ostic metho d. Addit ional infor yandel karimi can be found at http: //www .phad ia.co m Test perfo rmed by [facility] [address] [place] [address] Phone : Medic al Direc tor: DOLLY TROY M.D. Test Repor jeremie by Jamar De La Garza, [facility], [address] [address] [place], [place] Modesta Brennan M.D., Ph.D. , [facility] tor of Labor atori es , CLIA [id number] Lab test perfo rmed by: Lab Mnemo rosa isela: AMD [facility] [address] [address] [place], [place] Modesta Brennan MD PhD Not Available [facility] (Lab) [address] [place] [address], [address], 12/03/2022 17:05:10 11/28/19 23 12/04/2022 VENIS ON IGE - SEND OUT CQ venisonigecq SEE BELOW no reference range ----- ----- ----T ESTS- ----- ----- --RES ULTS- ----- --UNI TS--R EF. RANGE --- Venis onCon E <0.35 kU/L <0.35 CLASS 0 CLASS INTER PRETA TION: <0.35 kU/L= 0, Below Detec tion; 0.35- 0.69 kU/L= 1, Low Posit dari; 0.70- 3.49 kU/L= 2, Moder ate Posit dari; 3.50- 17.49 kU/L= 3, Posit dari; 17.50 -49.9 9 kU/L= 4, Stron g Posit dari; >49.9 9 kU/L= 5, Very Stron g Posit dari *This test was devel oped and its perfo rmanc e grant cteri stics deter mined by Copyright Agent [employer]. It has not been clear ed or appro mirian by the U.S. Food and Drug Admin istra tion. FLAG Inter preta tion: A = Abnor mal, H = High, L = Low Resul ts Recei mirian 12/04 Refer ence lab acces zoey: [id number] [phone] Test perfo rmed by: [employer], [employer] [address] [place] [address] Phone : [phone] Lab Direc tor: Rd Pace, PhD BCLD (ABB) CLIA # [id number] Lab test perfo rmed by: Lab Mnemo rosa isela: AMD [facility] [id number] [place], [place] Modesta Brennan MD PhD Not Available [facility] (Lab) [address] [place] [address], [address], 12/04/2022 10:28:54 12/06/1912/05/2022 CDIFF PRB2 cdiff PCR NEGATI VE negati ve Not Available [facility] (Lab) [address] [place] [address], [address], 12/05/2022 13:58:38 12/06/1912/05/2022 CDIFF PRB2 nap1 PRESUM PTIVE NEGATI VE no reference range Not Available [facility] (Lab) [address] [place], [address], 12/05/2022 13:58:38 12/06/1912/05/2022 CDIFF PRB2 qci 1 PASS Not Available [facility] (Lab) [address] [place], [address], 12/05/2022 13:58:38 12/06/19 23 12/05/2022 CDIFF PRB2 qci 2 PASS Not Available [facility] (Lab) [address] [facility], [place], [address], 12/05/2022 13:58:38 12/06/1912/05/2022 CDIFF PRB2 kit lot number [id number] no reference range Not Available [facility] (Lab) [address] [place] [address], [place], [address], 12/05/2022 13:58:38 12/06/1912/05/2022 CDIFF PRB2 kit lot exp [id number] no reference range Not Available [facility] (Lab) [address] [place] [address], [place], [address], 12/05/2022 13:58:38 12/06/1912/09/2022 FECAL FAT QUALI TATIV E - SEND OUT TO fecesfatqlcq NORMAL normal no reference range Lab test perfo rmed by: Lab Mnemo rosa isela: AMD [facility] [id number] [place], [place] Modesta Brennan MD PhD Not Available [facility] (Lab) [address] [facility], [place], [address], 12/09/2022 23:52:41 12/06/1912/12/2022 PANCR EATIC ELAST ASE 1- SEND OUT TO pancreaelas1 cq >500 mcg/g m no reference range Adult and Pedia tric Refer ence Range s for Pancr eatic Elast ase-1 : Lisa l: >200 mcg/g Moder ate Pancr eatic Insuf ficie ncy: 100-2 00 mcg/g Sever e Pancr eatic Insuf ficie ncy: <100 mcg/g Elast ase-1 (E-1) assay resul ts are expre ssed in mcg/g , which repre sent mcg E1/g feces . It is not neces destiny to inter rupt enzym e subst ituti on thera py. Test perfo rmed by [facility] [address] [place] [address] Phone : [phone] Medic al Dire tor: Evelyn engle MD,PH D,VELVET Test Repor jeremie by [facility], [facility], [address] [address] [place], [place] Modesta Brennan M.D., Ph.D. , D[facility] tor of Labor atori es [phone], CLIA [id number] Lab test perfo rmed by: Lab Mnemo rosa isela: AMD [facility] [address] [facility] [place], [place] Modesta Brennan MD PhD Not Available [facility] (Lab) [address] [place] [address], [address], 12/12/2022 02:59:19 12/12/1912/11/2022 COMPL ETE BLOOD COUNT W/AUT O DIFFE RENTI AL WBC 11.4 K/uL 4.6-10 .9 high Not Available [facility] (Lab) [address] [place] [address], [address], 12/11/2022 18:09:22 12/12/1912/11/2022 COMPL ETE BLOOD COUNT W/AUT O DIFFE RENTI AL RBC cnt 4.03 4.45-5 .99 low Not Available [facility] (Lab) [address] [place] [address], [address], 12/11/2022 18:09:22 12/12/19 23 12/11/2022 COMPL ETE BLOOD COUNT W/AUT O DIFFE RENTI AL HGB 12.5 g/dL 13.4-1 7.6 low Not Available [facility] (Lab) [address] [place] [address], [address], 12/11/2022 18:09:22 12/12/19 23 12/11/2022 COMPL ETE BLOOD COUNT W/AUT O DIFFE RENTI AL HCT 37.4 % 40.1-5 3.9 low Not Available [facility] (Lab) [address], [place], [address], 12/11/2022 18:09:22 12/12/19 23 12/11/2022 COMPL ETE BLOOD COUNT W/AUT O DIFFE RENTI AL MCV 92.8 fL 80.1-9 6.9 Not Available [facility] (Lab) [address] [facility], [place], [address], 12/11/2022 18:09:22 12/12/19 23 12/11/2022 COMPL ETE BLOOD COUNT W/AUT O DIFFE RENTI AL MCH 31.2 pg 27.1-3 2.9 Not Available [facility] (Lab) [address] [facility], [place], [address], 12/11/2022 18:09:22 12/12/19 23 12/11/2022 COMPL ETE BLOOD COUNT W/AUT O DIFFE RENTI AL MCHC 33.6 32.1-3 5.9 Not Available [facility] (Lab) [address] [facility], [place], [address], 12/11/2022 18:09:22 12/12/19 23 12/11/2022 COMPL ETE BLOOD COUNT W/AUT O DIFFE RENTI AL RDW 13.8 % 11.6-1 4.4 Not Available [facility] (Lab) [address] [facility], [place], [address], 12/11/2022 18:09:22 12/12/19 23 12/11/2022 COMPL ETE BLOOD COUNT W/AUT O DIFFE RENTI AL plt cnt 360 x10(3 )/mcL 151-44 9 Not Available [facility] (Lab) [address] [facility], [place], [address], 12/11/2022 18:09:22 12/12/19 23 12/11/2022 COMPL ETE BLOOD COUNT W/AUT O DIFFE RENTI AL MPV 7.1 fL 7.5-10 .3 low Not Available [facility] (Lab) [address], [place], [address], 12/11/2022 18:09:22 12/12/19 23 12/11/2022 COMPL ETE BLOOD COUNT W/AUT O DIFFE RENTI AL NRBC% auto 0 % no reference range Not Available [facility] (Lab) [address], [place], [address], 12/11/2022 18:09:22 12/12/19 23 12/11/2022 COMPL ETE BLOOD COUNT W/AUT O DIFFE RENTI AL NRBC# auto 0 /100_ WBC no reference range Not Available [facility] (Lab) [address], [place], [address], 12/11/2022 18:09:22 12/12/19 23 12/11/2022 .AUTO DIFF neutrophils% auto 85.0 % 38.0-6 9.0 high Not Available [facility] (Lab) [address] [facility], [place], [address], 12/11/2022 18:09:24 12/12/19 23 12/11/2022 .AUTO DIFF lymphocytes% auto 8.4 % 22.0-5 0.0 low Not Available [facility] (Lab) [address], [place], [address], 12/11/2022 18:09:24 12/12/19 23 12/11/2022 .AUTO DIFF monocytes% auto 5.9 % 3.0-8. 0 Not Available [facility] (Lab) [address], [place], [address], 12/11/2022 18:09:24 12/12/19 23 12/11/2022 .AUTO DIFF eosinophils% auto 0.4 % 1.0-2. 0 low Not Available [facility] (Lab) [address] [facility], [place], [address], 12/11/2022 18:09:24 12/12/19 23 12/11/2022 .AUTO DIFF basophils% auto 0.3 % 1.0-4. 0 low Not Available [facility] (Lab) [address] [place] [address], [place], [address], 12/11/2022 18:09:24 12/12/19 23 12/11/2022 .AUTO DIFF neutrophils# auto 9.7 3.0-7. 0 high Not Available [facility] (Lab) [address] [place] [address], [address], 12/11/2022 18:09:24 12/12/19 23 12/11/2022 .AUTO DIFF lymphocytes# auto 1.0 2.0-4. 0 low Not Available [facility] (Lab) [address] [place] [address], [address], 12/11/2022 18:09:24 12/12/19 23 12/11/2022 .AUTO DIFF monocytes# auto 0.7 1.0-1. 0 low Not Available [facility] (Lab) [address] [place] [address], [address], 12/11/2022 18:09:24 12/12/19 23 12/11/2022 .AUTO DIFF eos# auto 0.0 2.0-2. 0 low Not Available [facility] (Lab) [address] [place] [address], [address], 12/11/2022 18:09:24 12/12/19 23 12/11/2022 .AUTO DIFF basophils# auto 0.0 1.0-1. 0 low Not Available [facility] (Lab) [address] [facility], [place], [address], 12/11/2022 18:09:24 12/12/1912/11/2022 PROTH ROMBI N TIME W/ INR PT 10.1 secon d(s) 9.6-12 .4 Not Available [facility] (Lab) [address] [facility], [place], [address], 12/11/2022 18:33:40 12/12/1912/11/2022 PROTH ROMBI N TIME W/ INR INR 0.9 no reference range INR Inter preti ve Data Throm botic Disor agnes Recom aníbal d INR Proph ylaxi s/carson atmen t of: Venou s Throm bosis 2.0-3 .0 Pulmo nary Embol ism 2.0-3 .0 Preve ntion of Syste brad Embol ism from: Tissu e Heart Valve s 2.0-3 .0 Myoca rdial Infar ction 2.0-3 .0 (prev ent syste brad embol ism) Valvu lar Heart Disea se 2.0-3 .0 Atria l Fibri latio n 2.0-3 .0 Mecha nical Prost hetic Valve s 2.5.3 .5 Not Available [facility] (Lab) [address] [facility], [place], [address], 12/11/2022 18:33:40 12/12/1912/11/2022 IRON KRISTINA NG CAPAC ITY PNL DM iron 81 ug/dL 36-149 Iron value s may be false ly eleva jeremie in serum sampl es from patie nts treat ed with antic oagul ants (e.g. ,hemo dialy sis, hepar in patie nts) Not Available [facility] (Lab) [address] [facility], [place], [address], 12/11/2022 18:43:18 12/12/19 23 12/11/2022 IRON KRISTINA NG CAPAC ITY PNL DM iron sat DM 26.1 % 20.0-5 0.0 Not Available [facility] (Lab) [address] [facility], [place], [address], 12/11/2022 18:43:18 12/12/1912/11/2022 IRON KRISTINA NG CAPAC ITY PNL DM ibc total DM 310 ug/dL 251-44 9 Not Available [facility] (Lab) [address] [facility], [place], [address], 12/11/2022 18:43:18 12/12/1912/11/2022 COMPR EHENS DARI METAB OLIC PROFI LE eGFR 31 mL/mi n/1.7 3_m2 >=90 low CKD is defin ed by the prese nce of glome rular filtr ation rate (GFR) <60 mL for >3 month s and/o r evide nce of kidne y damag e (eg, struc tural abnor malit ies, histo logic abnor malit ies, album inuri a, urina ry sedim ent abnor malit ies, renal tubul ar disor ders, and/o r histo ry of kidne y trans plant ation ) for >3mon ths. This table provi bradley inter preta tion of speci fic eGFR value s. Creat inine measu remen ts, and there fore eGFR calcu latio ns, are affec jeremie by very high or very low muscl e mass, muscl e injur y, a diet very high in meat, hepat ic cirrh osis, certa in drugs , etc. Stage s of CKD: Stage Descr iptio n GFR mL/mi n 1 Kidne y damag e with lisa l or incre ased GFR 90 2 Kidne y damag e with mild decre ase in GFR 60 to 89 3 Moder ate decre ase in GFR 30 to 59 4 Sever e decre ase in GFR 15 to 29 5 Kidne y failu re <15 (or dialy sis) Note: GFR Lisa l range >60, equat ion not valid ated for ages <18 and >70 and pregn ant women . Not Available [facility] (Lab) [address] [facility] [address] [facility] [address], [place], [address], 12/11/2022 18:47:58 12/12/1912/11/2022 COMPR EHENS DARI METAB OLIC PROFI LE glucose 105 mg/dL 71-109 Not Available [facility] (Lab) [address] [facility], [place], [address], 12/11/2022 18:47:58 12/12/1912/11/2022 COMPR EHENS DARI METAB OLIC PROFI LE BUN 25 mg/dL 8-17 high Not Available [facility] (Lab) [address] [facility], [place], [address], 12/11/2022 18:47:58 12/12/1912/11/2022 COMPR EHENS DARI METAB OLIC PROFI LE creatinine 2.4 mg/dL 0.6-1. 3 high Not Available [facility] (Lab) [address] [facility], [place], [address], 12/11/2022 18:47:58 12/12/1912/11/2022 COMPR EHENS DARI METAB OLIC PROFI LE BUN/crea ratio 10.42 6.01-1 9.99 Not Available [facility] (Lab) [address] [facility], [place], [address], 12/11/2022 18:47:58 12/12/1912/11/2022 COMPR EHENS DARI METAB OLIC PROFI LE sodium 130 mmol/ L 136-14 9 low Not Available [facility] (Lab) [address] [facility], [place], [address], 12/11/2022 18:47:58 12/12/1912/11/2022 COMPR EHENS DARI METAB OLIC PROFI LE potassium 5.0 mEq/L 3.6-5. 2 Not Available [facility] (Lab) [address] [facility], [place], [address], 12/11/2022 18:47:58 12/12/1912/11/2022 COMPR EHENS DARI METAB OLIC PROFI LE chloride 98 mmol/ L 96-109 Not Available [facility] (Lab) [address] [facility], [place], [address], 12/11/2022 18:47:58 12/12/1912/11/2022 COMPR EHENS DARI METAB OLIC PROFI LE carbon dioxide 23 mmol/ L 22-33 Not Available [facility] (Lab) [address] [facility], [place], [address], 12/11/2022 18:47:58 12/12/1912/11/2022 COMPR EHENS DARI METAB OLIC PROFI LE calcium 8.7 mg/dL 8.6-10 .0 Not Available [facility] (Lab) [address] [facility], [place], [address], 12/11/2022 18:47:58 12/12/1912/11/2022 COMPR EHENS DARI METAB OLIC PROFI LE Ca corrected 9.0 mg/dL 8.6-10 .0 Not Available [facility] (Lab) [address] [facility], [place], [address], 12/11/2022 18:47:58 12/12/1912/11/2022 COMPR EHENS DARI METAB OLIC PROFI LE prot total 6.7 g/dL 6.5-8. 2 Not Available [facility] (Lab) [address] [facility], [place], [address], 12/11/2022 18:47:58 12/12/1912/11/2022 COMPR EHENS DARI METAB OLIC PROFI LE albumin 3.6 g/dL 3.6-4. 9 Not Available [facility] (Lab) [address] [facility], [place], [address], 12/11/2022 18:47:58 12/12/1912/11/2022 COMPR EHENS DARI METAB OLIC PROFI LE globulin 3 no reference range Not Available [facility] (Lab) [address] [facility], [place], [address], 12/11/2022 18:47:58 12/12/1912/11/2022 COMPR EHENS DARI METAB OLIC PROFI LE albumin/glob ulin ratio 1.16 1.01-2 .49 Not Available [facility] (Lab) [address] [facility], [place], [address], 12/11/2022 18:47:58 12/12/1912/11/2022 COMPR EHENS DARI METAB OLIC PROFI LE anion gap 9.0 mmol/ L 3.1-10 .9 Not Available [facility] (Lab) [address] [place] [address], [place], [address], 12/11/2022 18:47:58 12/12/1912/11/2022 COMPR EHENS DARI METAB OLIC PROFI LE alkaline phosphatase 46 U/L 51-135 low Not Available [facility] (Lab) [address] [facility], [place], [address], 12/11/2022 18:47:58 12/12/1912/11/2022 COMPR EHENS DARI METAB OLIC PROFI LE AST 18 U/L 16-36 Not Available [facility] (Lab) [address] [facility], [place], [address], 12/11/2022 18:47:58 12/12/1912/11/2022 COMPR EHENS DARI METAB OLIC PROFI LE ALT 19 U/L 31-64 low Not Available [facility] (Lab) [address] [place] [address], [place], [address], 12/11/2022 18:47:58 12/12/1912/11/2022 COMPR EHENS DARI METAB OLIC PROFI LE bili total 0.3 mg/dL 0.1-0. 9 Not Available [facility] (Lab) [address] [place] [address], [address], 12/11/2022 18:47:58 12/12/1912/11/2022 COMPR EHENS DARI METAB OLIC PROFI LE osmol calc 266 mOsm/ kg 276-29 4 low Not Available [facility] (Lab) [address] [place] [address], [address], 12/11/2022 18:47:58 12/12/1912/11/2022 LIPID PANEL cholesterol 173 mg/dL 166-26 9 [facility] recom mends keepi ng total selene stero l level s below 200 mg/dL . Level s from 200-2 39 mg/dL are consi dered borde rline high, while level s above 240 mg/dL are consi dered high. The expec jeremie range based on appar ently healt hy popul ation s is highe r than the recom aníbal d range . Not Available [facility] (Lab) [address] [place] [address], [address], 12/11/2022 18:48:00 12/12/1912/11/2022 LIPID PANEL triglyceride s 127 mg/dL 51-199 Not Available [facility] (Lab) [address] [place] [address], [address], 12/11/2022 18:48:00 12/12/19 23 12/11/2022 LIPID PANEL lipoprotein HDL 44 mg/dL 36-59 Not Available [facility] (Lab) [address] [place] [address], [id number], 12/11/2022 18:48:00 12/12/19 23 12/11/2022 LIPID PANEL LDL calculation 104 mg/dL no reference range Not Available [facility] (Lab) [address] [place] [address], [id number], 12/11/2022 18:48:00 12/12/19 23 12/11/2022 LIPID PANEL chol/HDL ratio 3.93 0.01-4 .97 Not Available [facility] (Lab) [address] [place] [address], [place], [id number], 12/11/2022 18:48:00 12/12/19 23 12/11/2022 THYRO ID STIMU LATIN G HORMO NE TSH 0.84 uIU/m L 0.35-3 .99 Not Available [facility] (Lab) [address] [place] [address], [place], [address], 12/11/2022 18:48:02 12/12/1912/15/2022 LINDA TIN CQ ferritin cq. 22 NG/mL 38-380 low Lab test perfo rmed by: Lab Mnemo rosa isela: [facility] [address] sones [employer] [place], [place] Modesta Brennan MD PhD Not Available [facility] (Lab) [address] [place] [address], [address], 12/15/2022 16:17:09 12/12/1912/16/2022 MITOC HONDR IA ANTIB FLAQUITO W/REF LEN TITER - S mitoabscrcq Negati ve negati ve no reference range Lab test perfo rmed by: Lab Mnemo rosa isela: [facility] [address] [facility] [place] Modesta Brennan MD PhD Not Available [facility] (Lab) [address] [place] [address], [address], 12/16/2022 11:32:09 12/12/1912/16/2022 RICKE TTSIA IGG IGM W/REF LEN TITER - SEND rmsf IgG cq Not Detect ed not detect ed no reference range Not Available [facility] (Lab) [address] [place] [address], [address], 12/16/2022 17:11:09 12/12/19 23 12/16/2022 RICKE TTSIA IGG IGM W/REF LEN TITER - SEND rmsf IgG antibodiescq Not indica jeremie no reference range Not Available [facility] (Lab) [address] [facility], [place], [address], 12/16/2022 17:11:09 12/12/19 23 12/16/2022 RICKE TTSIA IGG IGM W/REF LEN TITER - SEND rmsf IgM cq Not Detect ed not detect ed no reference range Not Available [facility] (Lab) [address] [place] [address], [place], [address], 12/16/2022 17:11:09 12/12/19 23 12/16/2022 RICKE TTSIA IGG IGM W/REF LEN TITER - SEND rmsf IgM antibodies cq Not indica jeremie no reference range Lab test perfo rmed by: Lab Mnemo rosa isela: [facility] [address] [place], [place] Modesta Brennan MD PhD Not Available [facility] (Lab) [address] [place], [address], 12/16/2022 17:11:09 12/12/19 23 12/16/2022 LYME DISEA SE IGG IGM WESTE RN BLOT - SEND lymedisiggwb cq Negati ve negati ve no reference range Not Available [facility] (Lab) [address] [facility], [place], [address], 12/16/2022 17:11:10 12/12/1912/16/2022 LYME DISEA SE IGG IGM WESTE RN BLOT - SEND [id number] gcq Nonrea ctive no reference range Not Available [facility] (Lab) [address] [place] [address], [address], 12/16/2022 17:11:10 12/12/19 12/16/2022 LYME DISEA SE IGG IGM WESTE RN BLOT - SEND [id number] gcq Nonrea ctive no reference range Not Available [facility] (Lab) [address], [place], [address], 12/16/2022 17:11:10 12/12/19 23 12/16/2022 LYME DISEA SE IGG IGM WESTE RN BLOT - SEND celriw26etvx gcq Nonrea ctive no reference range Not Available [facility] (Lab) [address], [place], [address], 12/16/2022 17:11:10 12/12/1912/16/2022 LYME DISEA SE IGG IGM WESTE RN BLOT - SEND [id number] gcq Nonrea ctive no reference range Not Available [facility] (Lab) [address] [facility] [address], [place], [address], 12/16/2022 17:11:10 12/12/1912/16/2022 LYME DISEA SE IGG IGM WESTE RN BLOT - SEND [id number] gcq Nonrea ctive no reference range Not Available [facility] (Lab) [address] [facility] [address], [place], [address], 12/16/2022 17:11:10 12/12/1912/16/2022 LYME DISEA SE IGG IGM WESTE RN BLOT - SEND [id number] gcq Reacti ve abnormal Not Available [facility] (Lab) [address], [place], [address], 12/16/2022 17:11:10 12/12/19 23 12/16/2022 LYME DISEA SE IGG IGM WESTE RN BLOT - SEND [id number] gcq Nonrea ctive no reference range Not Available [facility] (Lab) [address], [place], [address], 12/16/2022 17:11:10 12/12/1912/16/2022 LYME DISEA SE IGG IGM WESTE RN BLOT - SEND [id number] gcq Nonrea ctive no reference range Not Available [facility] (Lab) [address], [place], [address], 12/16/2022 17:11:10 12/12/19 23 12/16/2022 LYME DISEA SE IGG IGM WESTE RN BLOT - SEND [id number] gcq Nonrea ctive no reference range Not Available [facility] (Lab) [address], [place], [address], 12/16/2022 17:11:10 12/12/1912/16/2022 LYME DISEA SE IGG IGM WESTE RN BLOT - SEND [id number] gcq Nonrea ctive no reference range Not Available [facility] (Lab) [address] [facility] [address], [place], [address], 12/16/2022 17:11:10 12/12/1912/16/2022 LYME DISEA SE IGG IGM WESTE RN BLOT - SEND lymedisigmwb cq Negati ve negati ve no reference range Not Available [facility] (Lab) [address] [facility] [address], [place], [address], 12/16/2022 17:11:10 12/12/1912/16/2022 LYME DISEA SE IGG IGM WESTE RN BLOT - SEND [id number] mcq Nonrea ctive no reference range Not Available [facility] (Lab) [address], [place], [address], 12/16/2022 17:11:10 12/12/1912/16/2022 LYME DISEA SE IGG IGM WESTE RN BLOT - SEND [id number] mcq Nonrea ctive no reference range Not Available [facility] (Lab) [address], [place], [address], 12/16/2022 17:11:10 12/12/19 23 12/16/2022 LYME DISEA SE IGG IGM DIOGENES RN BLOT - SEND [id number] mcq Nonrea ctive no reference range As per CDC crite sierra, a Lyme disea se IgG immun oblot must show react ivity to at least 5 of 10 speci fic borre lial prote ins to be consi dered posit dari; simil page, a posit dari Lyme disea se IgM immun oblot requi res react ivity to 2 of 3 speci fic borre lial prote ins. Altho ugh consi dered negat dari, IgG react ivity to fewer speci fic borre lial prote ins or IgM react ivity to only 1 prote in june indic ate recen t B. burgd orfer i infec tion and warra nt testi ng of a later sampl e. A posit dari IgM but negat dari IgG resul t obtai carrol more than a month after onset of sympt oms likel y repre sents a false IgM resul t rathe r than acute Lyme disea se. In rare insta nces, Lyme disea se immun oblot react ivity may repre sent antib odies induc ed by expos ure to other donald chete s. Lyme Immun oblot testi ng shoul d only be perfo rmed on sampl es from patie nts who have had a Posit dari or Equiv ocal resul t in a scree bing assay . The Code of Nino ibrahim, Artic le 1 of Chapt er 5 of Title 32.1, secti on 32.1- 137.0 6, requi res that the follo wing langu age must be inclu ded on every Lyme disea se test repor t issue d by a [employer] patrice labor atory : Patie nts under going a Lyme disea se test shoul d be aware that Lyme disea se tests vary and may produ ce resul ts that are inacc urate . This means a patie nt may not be able to rely on a posit dari or negat dari resul t. Healt h care provi ders are encou raged to discu ss Lyme disea se test resul ts with the patie nt for whom the test was order ed. Lab test perfo rmed by: Lab Mnemo rosa isela: [facility] [address] [facility] [place] Modesta Brennan MD PhD Not Available [facility] (Lab) [address] [place] [address], [place], [address], 12/16/2022 17:11:10 12/12/19 23 12/16/2022 EHRLI KRISTINA CHAFF EENSI S IGG IGM - SEND OUT echaf int cq SEE BELOW no reference range Antib flaquito Not Detec jeremie Not Available [facility] (Lab) [address] [place] [address], [place], [address], 12/16/2022 22:43:14 12/12/19 23 12/16/2022 EHRLI KRISTINA CHAFF EENSI S IGG IGM - SEND OUT echaffeenigg cq <1:64 <1:64 no reference range Not Available [facility] (Lab) [address] [place] [address], [place], [address], 12/16/2022 22:43:14 12/12/19 23 12/16/2022 EHRLI KRISTINA CHAFF EENSI S IGG IGM - SEND OUT echaffeenigm cq <1:20 <1:20 no reference range Not Available [facility] (Lab) [address] [place] [address], [place], [address], 12/16/2022 22:43:14 12/12/19 23 12/16/2022 EHRLI KRISTINA CHAFF EENSI S IGG IGM - SEND OUT comment cq SEE BELOW no reference range Ehrli kristina chaff eenis has been ident ified as the causa tive agent of Human Monoc ytic Ehrli chios is (HME) . Infec jeremie indiv idual s produ ce speci fic antib odies to E. chaff eensi s that can be detec jeremie by an immun o- fluor escen t antib flaquito (IFA) test. Singl e IgG IFA titer s of 1:64 or great er indic ate expos ure to E. chaff eensi s. A four- fold rise in IgG titer s betwe en acute and conva lesce nt sampl es and/o r the prese nce of IgM antib flaquito again st E. chaff eensi s sugge st recen t or curre nt infec tion. This test was devel oped and its romeo tical perfo rmanc e grant cteri stics have been deter mined by [facility], [place], [place]. It has not been clear ed or appro mirian by the U.S. Food and Drug Admin istra tion. This assay has been valid ated pursu ant to the CLIA regul ation s and is used for clini bo purpo ses. Lab test perfo rmed by: Lab Mnemo rosa isela: AMD [facility] [address] [facility] [place], [place] Modesta Brennan MD PhD Not Available [facility] (Lab) [address] [place] [address], [place], [address], 12/16/2022 22:43:14 12/12/19 23 12/17/2022 ANTI NUCLE AR ANTIB ODIES IFA SCREE N W/REF anascrifacq POSITI VE negati ve abnormal ANASTASIA IFA is a first line scree n for detec ting the prese nce of up to appro ximat dick 150 autoa ntibo dies in vario us autoi mmune disea ses. A posit dari ANASTASIA IFA resul t is sugge stive of autoi mmune disea se and refle xes to titer and jesse gonzalez. Furth er labor atory testi ng may be consi dered if clini gerard indic ated. For addit ional infor kirt barnett e refer to http: //evan karimi.Que stDia gnost ics.c om/fa q/FAQ 177 (This link is being provi ded for infor matgricelda nal/ educa neisha l purpo ses only. ) Lab test perfo rmed by: Lab Mnemo rosa isela: AMD [facility] [address] [place], [place] Modesta Brennan MD PhD Not Available [facility] (Lab) [address] [facility], [place], [address], 12/17/2022 05:47:30 12/12/19 23 12/17/2022 .ANASTASIA, TITER AND PATTE RNCQ anatitercq 1:40 negati ve abnormal A low level ANASTASIA titer may be prese nt in pre-c linic al autoi mmune disea ses and lisa l indiv idual s. Refer ence Range : <1:40 Negat dari 1:40- 1:80 Low Antib flaquito Level >1:80 [place] jeremie Antib flaquito Level Not Available [facility] (Lab) [address] [facility], [place], [address], 12/17/2022 06:13:12 12/12/19 23 12/17/2022 .ANASTASIA, TITER AND PATTE RNCQ anapatterncq SEE BELOW no reference range Nucle ar, Homog eneou s Homog eneou s patte rn is assoc iated with syste brad lupus eryth emato mir (SLE) , drug- induc ed lupus and savana ile idiop athic arthr itis. AC-1: Homog eneou s Inter natio nal Conse nsus on ANASTASIA Patte rns https ://do i.org /10.1 515/c clm-2 018-0 052 Not Available [facility] (Lab) [address] [facility], [place], [address], 12/17/2022 06:13:12 12/12/19 23 12/17/2022 .ANASTASIA, TITER AND PATTE RNCQ asjfuxgf7rb 1:80 negati ve abnormal A low level ANASTASIA titer may be prese nt in pre-c linic al autoi mmune disea ses and lisa l indiv idual s. Refer ence Range : <1:40 Negat dari 1:40- 1:80 Low Antib flaquito Level >1:80 Clemmons jeremie Antib flaquito Level Not Available [facility] (Lab) [address] [place] [address], [address], 12/17/2022 06:13:12 12/12/19 23 12/17/2022 .ANASTASIA, TITER AND PATTE RNCQ tilipkzgkh6h q SEE BELOW no reference range Nucle ar, Nucle olar Nucle olar patte rn is assoc iated with syste brad scler osis (suresh barahona ma), syste brad scler osis/ polym yosit is overl ap and Sjogr en's syndr ome. AC-8, 9, 10: Nucle olar Inter natio nal Conse nsus on ANASTASIA Patte rns https ://do i.org /10.1 515/c clm-2 018-0 052 Not Available [facility] (Lab) [address] [place] [address], [address], 12/17/2022 06:13:12 12/12/19 23 12/17/2022 .ANASTASIA, TITER AND PATTE RNCQ [id number] NO RESULT no reference range Lab test perfo rmed by: Lab Mnemo rosa isela: AMD [facility] [address] [place], [place] Modesta Brennan MD PhD Not Available [facility] (Lab) [address] [place] [address], [address], 12/17/2022 06:13:12 12/12/19 23 12/17/2022 .ANASTASIA, TITER AND PATTE RNCQ ofxmrmcmjx1a q NO RESULT no reference range Not Available [facility] (Lab) [address] [place] [address], [address], 12/17/2022 06:13:12 12/12/19 23 12/17/2022 TINO H MUSCL E ANTIB FLAQUITO W REFLE X TO TITER smooth muscle antibody screen cq NEGATI VE negati ve no reference range Test perfo rmed by [facility] [address] [place] [address] Phone : [phone] Medic al Direc tor: DOLLY TROY M.D. Test Repor jeremie by [facility] De La Garza, [facility], [address] sones [place] [facility], [place] Modesta Brennan M.D., Ph.D. , Direc tor of Labor atori es , CLIA [id number] Lab test perfo rmed by: Lab Mnemo rosa isela: AMD [facility] [address] sones [place] [facility], [place] Modesta Brennan MD PhD Not Available [facility] (Lab) [address] [place] [address], [address], 2022 00:39:52 12/12/1912/18/2022 HEPAT ITIS PANEL ACUTE W/REF LEN CONFI RMAT hbsagcq NONREA CTIVE nonrea ctive no reference range Confi rmati on Not requi red accor ding to the curre nt packa ge inser t. Not Available [facility] (Lab) [address] [place] [address], [address], 2022 06:09:46 12/12/19 23 2022 HEPAT ITIS PANEL ACUTE W/REF LEN CONFI RMAT hbcoreabigmc q NONREA CTIVE nonrea ctive no reference range Not Available [facility] (Lab) [address] [place] [address], [address], 2022 06:09:46 12/12/1912/18/2022 HEPAT ITIS PANEL ACUTE W/REF LEN CONFI RMAT haigmcq NONREA CTIVE no reference range Refer ence range : Nonre activ e For addit ional infor kirt barnett e refer to https ://ed ucati on.qu yari MCT [place] AS (MCTAS: [place])/f aq/FA Q202 (This link is being provi ded for infor matio nal/ educa neisha l purpo ses only. ) Not Available [facility] (Lab) [address] [facility], [place], [address], 2022 06:09:46 12/12/19 23 2022 HEPAT ITIS PANEL ACUTE W/REF LEN CONFI RMAT hcabcq NONREA CTIVE no reference range HCV antib flaquito was non-r eacti ve. There is no labor atory evide nce of HCV infec tion. In most cases , no furth er actio n is requi red. Howev er, if recen t HCV expos ure is suspe cted, a test for HCV RNA (test code 28245 ) is sugge sted. REFER ENCE RANGE : NONRE ACTIV E For addit ional infor matio n pleas e refer to http: //[facility] catgricelda n.que stdia gnost ics.c om/fa q/FAQ 22v1 (This link is being provi ded for infor matio nal/ educa neisha l purpo ses only. ) Lab test perfo rmed by: Lab Mnemo rosa isela: [facility] [address] Diagn[facility]ia [facility] [place] Modesta Brennan MD PhD Not Available [facility] (Lab) [address] [place] [address], [address], 2022 06:09:46 12/12/19 23 2022 TRANS LINDA N - SEND OUT TO transferrinc q 242 mg/dL 188-34 1 no reference range Lab test perfo rmed by: Lab Mnemo rosa isela: [facility] [address] Diagnosia [facility] [place] Modesta Brennan MD PhD Not Available [facility] (Lab) [address] [place] [address], [address], 2022 07:24:32 12/12/19 23 2022 CERUL OPLAS MIN - SEND OUT TO ceruloplasmi ncq 30 mg/dL 18-36 no reference range Lab test perfo rmed by: Lab Mnemo rosa isela: [facility] [address] [employer] [place] Modesta Brennan MD PhD Not Available [facility] (Lab) [address] [facility], [place], [address], 2022 07:24:34 12/12/19 23 2022 LIZZY C DISEA SE PANEL - SEND OUT TO interpretati on 1 cq SEE BELOW no reference range No serol ogica l evide nce of lizzy c disea se. tTG IgA may lisa lize in indiv idual s with lizzy c disea se who maint ain a glute n-jyotsna e diet. Consi agnes HLA DQ2 and DQ8 testi ng to rule out lizzy c disea se. Lizzy c disea se is extre benoit rare in the absen ce of DQ2 or DQ8. Not Available [facility] (Lab) [address] [place] [address], [place], [address], 2022 08:12:09 12/12/19 23 2022 LIZZY C DISEA SE PANEL - SEND OUT TO ttgigacq <1.0 unit/ mL <15.0 no reference range Value Inter preta tion <15.0 Antib flaquito not detec jeremie > or = 15.0 Antib flaquito detec jeremie Not Available [facility] (Lab) [address] [facility], [place], [address], 2022 08:12:09 12/12/19 23 2022 LIZZY C DISEA SE PANEL - SEND OUT TO igacq 66 mg/dL 47-310 no reference range Lab test perfo rmed by: Lab Mnemo rosa isela: [facility] [address] [facility] [place] Modesta Brennan MD PhD Not Available [facility] (Lab) [address] [facility], [place], [address], 2022 08:12:09 12/12/19 23 2022 MITOC HONDR IA M2 ANTIB FLAQUITO IGG - SEND OUT zwghoaizr8ax gcq 95.6 unit( s) <=20.0 high Refer ence Range : Negat dari: <=20. 0 U Equiv ocal: 20.1 - 24.9 U Posit dari: >=25. 0 U Lab test perfo rmed by: Lab Mnemo rosa isela: AMD [facility] [address] [facility] [place] Modesta Brennan MD PhD Not Available [facility] (Lab) [address] [facility], [place], [address], 2022 12:28:56 12/12/1912/22/2022 ALPHA FETOP ROTEI N TUMOR MARKE R - SEND OU alphafetopro tcq 3.2 NG/mL <6.1 no reference range This test was perfo rmed using the Mi[employer]eds an CostPrizet er chemi lumin escen t metho d. Value s obtai carrol from diffe rent assay metho ds canno t be used inter castelan eably . AFP level s, regar dless of value , shoul d not be inter prete d as absol hoda evide nce of the prese nce or absen ce of disea se. Test perfo rmed by [facility] [address] [facility] [place] [address] Phone : [phone] Medic al Direc tor: Evelyn engle MD,PH D,VELVET Test Repor jeremie by [employer] [facility] tiffanie, [employer] [facility], [address] Diagnosia , [facility] [place] Modesta Brennan M.D., Ph.D. , Direc tor of Labor atori es , CLIA [id number] Lab test perfo rmed by: Lab Mnemo rosa isela: AMD [facility] [address] [place], [place] Modesta Brennan MD PhD Not Available [facility] (Lab) [address] [facility] [address] [facility] [address], [place], [address], 12/22/2022 18:31:54 12/12/19 23 12/22/2022 ALPHA 1 ANTIT RYPSI N PHENO TYPE- SEND OUT n0iygnrkzopg ycq SEE BELOW no reference range The mary ng patte rn most close ly match es our PI*MZ ene type. The bands appea r to have been alter ed by disea se, drugs , or possi rolando in vitro . 90% of lisa l indiv idual s have the MM pheno type, with lisa l quant itati ve AAT level s. Many pheno typic patte rns have been descr ibed, inclu ding defic iency state s with F, S, Z, or other allel es. As a gener al estim ation , gregory red to M allel e of 100% of lisa l A-1-A ntitr ypsin prote in, the S allel e produ verónica appro ximat dick 60% and the Z allel e 20%. For examp le, an MS pheno type would have about 80% of lisa l A-1-A ntitr ypsin prote in level , a 50% contr ibuti on from the M allel e and 30% from the S allel e. A ZZ pheno type would have about 20% of lisa l level s, a 10% contr ibuti on from each Z gene. The F allel e has lisa l A-1-A ntitr ypsin level s, but the kinet ics of elast ase inhib ition is not as effic ient as an M allel e produ ct; F allel es shoul d be consi dered funct ional ly mildl y defic ient. Other varia nts are ident ifiab le by pheno typic romeo sis. These inclu de CM, DP, EM, GM, IS, LM, M1M2, M3M3, MP, MT, XX, MY, and M1N. I, P, T and null allel es are consi dered delet lilliam puckett. C, D, E, G, L, M1, M2, M3, X and Y allel es are gener ally consi dered lisa l varia nts. The MZ-Pr att pheno type is a lisa l varia nt; care shoul d be taken to avoid confu zoey with the defic ient MZ pheno type. Test perfo rmed by [facility] [address] [facility] [place] [address] Phone : [phone] Medic al Dire tor: Evelyn engle MD,PH D,VELVET Test Repor jeremie by [employer] Jamar moreno, [employer] [facility], [address] [facility] [place], [place] Modesta Brennan M.D., Ph.D. , Dire tor of Labor atori es , CLIA [id number] Lab test perfo rmed by: Lab Mnemo rosa isela: AMD [facility] [address] Diagn[facility]ia [facility] [place] Modesta Brennan MD PhD Not Available [facility] (Lab) [address] [place] [address], [address], 12/22/2022 18:31:55 12/12/1912/24/2022 LIVER FIBRO SIS PANEL CQ fibrosis score cq 0.19 no reference range Not Available [facility] (Lab) [address] [place] [address], [address], 12/24/2022 16:16:05 12/12/19 23 12/24/2022 LIVER FIBRO SIS PANEL CQ fibrosis stage cq F0 no reference range Not Available [facility] (Lab) [address] [place] [address], [address], 12/24/2022 16:16:05 12/12/19 23 12/24/2022 LIVER FIBRO SIS PANEL CQ fibrosis interpretati on cq SEE BELOW no reference range no fibro sis Fibro Test Score (f) Metav ir Score f>=0 and f<=0. 21 : F0 (no fibro sis) f>0.2 1 and f<=0. 27 : F0-F1 (no fibro sis) f>0.2 7 and f<=0. 31 : F1 (mini mal fibro sis) f>0.3 1 and f<=0. 48 : F1-F2 (mini mal fibro sis) f>0.4 8 and f<=0. 58 : F2 (mode rate fibro sis) f>0.5 8 and f<=0. 72 : F3 (adva nced fibro sis) f>0.7 2 and f<=0. 74 : F3-F4 (adva nced fibro sis) f>0.7 4 and f<=1. 00 : F4 (dharmesh re fibro sis) Not Available [facility] (Lab) [address] [place] [address], [address], 12/24/2022 16:16:05 12/12/1912/24/2022 LIVER FIBRO SIS PANEL CQ necroinflamm at act score cq 0.02 no reference range Not Available [facility] (Lab) [address] [place] [address], [place], [address], 12/24/2022 16:16:05 12/12/19 23 12/24/2022 LIVER FIBRO SIS PANEL CQ necroinflamm at act grade cq A0 no reference range Not Available [facility] (Lab) [address] [place] [address], [place], [address], 12/24/2022 16:16:05 12/12/19 23 12/24/2022 LIVER FIBRO SIS PANEL CQ necroinflamm at interp cq SEE BELOW no reference range no activ ity ActiT est Score (a) Metav ir Score a>=0 and a<=0. 17 : A0 (no activ ity) a>0.1 7 and a<=0. 29 : A0-A1 (no activ ity) a>0.2 9 and a<=0. 36 : A1 (mini mal activ ity) a>0.3 6 and a< =0.52 : A1-A2 (mini mal activ ity) a>0.5 2 and a<=0. 60 : A2 (sign ifica nt activ ity) a>0.6 0 and a<=0. 62 : A2-A3 (sign ifica nt activ ity) a>0.6 2 and a<=1. 00 : A3 (dharmesh re activ ity) Not Available [facility] (Lab) [address] , [place], [address], 12/24/2022 16:16:05 12/12/1912/24/2022 LIVER FIBRO SIS PANEL CQ wmaoi-5-ppzq oglobulin cq 191 mg/dL 106-27 9 no reference range Not Available [facility] (Lab) [address] [place] [address], [place], [address], 12/24/2022 16:16:05 12/12/19 23 12/24/2022 LIVER FIBRO SIS PANEL CQ haptoglobin cq 133 mg/dL 43-212 no reference range Not Available [facility] (Lab) [address] [place] [address], [place], [address], 12/24/2022 16:16:05 12/12/19 23 12/24/2022 LIVER FIBRO SIS PANEL CQ apolipoprote in A1 cq 136 mg/dL 94-176 no reference range Not Available [facility] (Lab) [address] [place] [address], [place], [address], 12/24/2022 16:16:05 12/12/19 23 12/24/2022 LIVER FIBRO SIS PANEL CQ total bilirubin cq 0.3 mg/dL 0.2-1. 2 no reference range Not Available [facility] (Lab) [address] [place] [address], [place], [address], 12/24/2022 16:16:05 12/12/19 23 12/24/2022 LIVER FIBRO SIS PANEL CQ ggtcq 32 unit/ L 3-85 no reference range Not Available [facility] (Lab) [address], [place], [address], 12/24/2022 16:16:05 12/12/19 23 12/24/2022 LIVER FIBRO SIS PANEL CQ ALT cq 10 unit/ L 9-46 no reference range Not Available [facility] (Lab) [address], [place], [address], 12/24/2022 16:16:05 12/12/19 23 12/24/2022 LIVER FIBRO SIS PANEL CQ reference id [id number] no reference range Not Available [facility] (Lab) [address], [place], [address], 12/24/2022 16:16:05 12/12/19 23 12/24/2022 LIVER FIBRO SIS PANEL CQ footnote id cq SEE BELOW no reference range The relia bilit y of resul ts is depen dent on compl iance with the prean alyti bo and romeo tical condi tions recom aníbal d by Bio[employer] edict dari. The tests have to be defer red for: acute hemol ysis, acute hepat itis, acute infla mmati on, extra hepat ic selene stasi s. The advic e of a speci alist vito d be sough t for inter preta tion in chron ic hemol ysis and Gilbe rt's syndr ome. The test inter preta tion is not valid ated in liver trans plant patie nts. [place] jeremie extre me value s of one of the compo nents shoul d lead to cauti on in inter preti ng the resul ts. In case of disco rdanc e betwe en a biops y resul t and a test, it is recom aníbal d to seek the advic e of a speci alist . The cause s of these disco rdanc es could be due to a flaw of the test or to a flaw in the biops y: i.e. a liver biops y has a 33% varia bilit y rate for one fibro sis stage . Fibro Test is inter preta ble for chron ic hepat itis B and C, alcoh olic and non alcoh olic steat osis. ActiT est is inter preta ble for chron ic hepat itis B and C. The perfo rmanc e grant cteri stics have been deter mined by [facility], [facility] . It has not been clear ed or appro mirian by the U.S. Food and Drug Admin istra tion. Perfo rmanc e grant cteri stics refer to the romeo tical perfo rmanc e of the test. [facility] , [facility], the assoc iated logo, [facility] and all assoc iated [facility] briceno are the arminda tered trade briceno of [facility]. All third libertarian briceno - (R) and (TM) - are the prope rty of their respe ctive disability attorney s. (C) 1999- 2013 [facility] [employer] porat ed. All right s reser mirian. Test perfo rmed by [facility] [id number] [facility] [place] [address] Phone : [phone] Medic al Direc tor: Evelyn engle MD,PH D,VELVET Test Repor jeremie by Jamar De La Garza, [facility], [id number] , [place], [place] Modesta Brennan M.D., Ph.D. , Direc tor of Labor atori es [phone], CLIA [id number] Lab test perfo rmed by: Lab Mnemo rosa isela: AMD [facility] [id number] [address] [facility] [place], [place] Modetsa Brennan MD PhD Not Available [facility] (Lab) [address] [facility], [place], [address], 12/24/2022 16:16:05 12/09/19 23 12/05/2022 CT, abdom en + pelvi s, w/o contr ast [place] [facility] [place] [facility] [place] Pat[place]wn t: ARELIS JENSEN 6 : 89 Sex: Male Locati on: [facility] CT Orderi ng Physic roberto: CAMILLE SILVA ELECTRIC SIGN WIRER Comput ed Tomogr aphy Access ion Exam Date/T rina [id number] 2022 12:11 CDT Reason for Exam Abdomi nal pain Report EXAM: CT OF THE ABDOME N AND PELVIS WITHOU T CONTRA ST COMPAR RHYS: CT chest 2020 HISTOR Y: Abdomi nal pain. TECHNI QUE: Axial CT images were obtain ed throug h the abdome n and pelvis withou t the admini strati on of intrav enous contra st. Hernandez l and sagitt al reform atted images were also submit jeremie for interp retati on. Oral contra st was admini stered . FINDIN GS: Liver: Normal morpho logy. Multip le hepati c cysts some of which are cysts and others which are too small to charac terize . Gallbl adder: Cholec ystect radha. Bile ducts: No intra or extrah epatic biliar y ductal dilata tion. Pancre as: No lesion s. The main pancre atic duct is not dilate d. Spleen : The spleen is not enlarg ed. Adrena l glands : Within normal limits . Kidney s: No hydron ephros is. Enlarg ed bilate ral kidney s with innume rable renal cysts compat ible with polycy stic kidney diseas e. Ureter s: Within normal limits . Urinar y bladde r: Within normal limits . Reprod uctive organs : Enlarg ed prosta te measur ing up to 5.4 cm. Perito neum: No ascite s or free intrap eriton eal air. Bowel: Normal calibe r. Coloni c divert iculos is withou t eviden ce of acute divert iculit is. Normal append ix. Lymph nodes: No lympha denopa thy. Vessel s: Athero sclero sis in the abdomi nal aorta and branch vessel s. Lack stones . Abdomi nal wall: Within normal limits . Comput ed Tomogr aphy Report Osseou s struct ures: No acute findin gs. Minima l scolio sis. Sarthak listhe sis of L3 on L4 measur ing 0.7 cm. Remote right- sided rib fractu res. Lower thorax : Emphys ematou s change s. Small perica rdial effusi on measur ing up to 1.1 cm in thickn ess. Athero sclero sis in the hernandez ry arteri es. IMPRES ZOEY: - Lack of IV contra st limits the evalua tion for infect ious and neopla stic proces ses. - No acute findin gs. - Enlarg ed bilate ral kidney s with innume rable renal cysts compat ible with polycy stic kidney diseas e. Evalua tion for suspic ious lesion s is limite d by lack of IV contra st. MRI can be obtain ed for furthe r evalua tion as clinic ally indica jeremie. - Multip le hepati c cysts some of which are cysts and others which are too small to charac terize . - Coloni c divert iculos is withou t eviden ce of acute divert iculit is. Normal append ix. - Enlarg ed prosta te measur ing up to 5.4 cm. - Extens dari athero sclero sis in the abdomi nal aorta and bilate ral iliac vessel s. Bilate ral common iliac stents . iliac - Small perica rdial effusi on measur ing up to 1.1 cm in thickn ess. Athero sclero sis in the hernandez ry arteri es. All CT scans are perfor med using dose optimi zation techni ques as approp riate to the perfor med exam and includ e at least one of the follow ing: Automa jeremie exposu re contro l, adjust ment of the mA and/or kV accord ing to size, and the use of iterat dari recons tructi on techni que. 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 Thin sliced radial 3-D MRCP was perfor med. HISTOR Y: Hepati c and renal cysts COMPAR RHYS: CT 2022 FINDIN GS: Lung bases: Clear. Liver: Normal morpho logy. No suspic ious hepati c lesion s. Multip le simple hepati c cysts are presen t. Gallbl adder: Remove d. Bile ducts: No intra or extrah epatic bile ductal dilata tion. Spleen : The spleen is not enlarg ed. Pancre as: Normal signal intens ity and enhanc ement. No solid masses . The main pancre atic duct is not dilate d. Adrena l glands : Within normal limits . Kidney s: No hydron ephros is. Near comple te replac ement of the renal parenc hyma bilate rally second jemima to simple and comple x cysts. The larges t right- sided cyst arises from the lower pole and measur es approx imatel y 6.4 x 5.9 cm. The larges t in the left kidney is in the lower pole measur ing approx imatel y 4.8 x 4.8 cm. There are multip le bilate ral hemorr hagic cysts as well. No solid mass. Aorta: The major vessel s are patent . No Aneury sm. Bowel: Normal calibe r. No obstru ction or wall thicke bing. Osseou s struct ures: Unrema rkable . IMPRES ZOEY: 1. Simple and comple x bilate ral renal cysts in keepin g with a domina nt polycy stic kidney diseas e. 2. Multip le simple hepati c cysts. Magnet ic Resona nce Imagin g Report 3. Cholec ystect radha. No biliar y obstru ction. Final Signed by: Stormy Soriano DO Signed (Elect ronic Signat ure): 2022 11:40 am ELECTROTYPE FINISHER [facility] (Radiology) [address], [place], [address], 01/15/2023 06:45:35 01/13/2001/12/2023 MRI, abdom en, w/wo contr ast No observ ation record ed. [id number] [facility] (Radiology) [address], [place], [address], 01/13/2023 19:42:36 Result Notes Documentation Provider Name and Address Organization Details Recorded Time Ct, Abdomen + Pelvis, W/o Contrast : [facility] Patient: ARELIS LANGLEY : 1965 Sex: Male Location: [facility] CT Ordering Physician: CAMILLE SILVA NP Computed Tomography Accession Exam Date/Time [id number] 12/05/2022 12:11 CDT Reason for Exam Abdominal pain Report EXAM: CT OF THE ABDOMEN AND PELVIS WITHOUT CONTRAST COMPARISON: CT chest 11/19/2020 HISTORY: Abdominal pain. TECHNIQUE: Axial CT images were obtained through the abdomen and pelvis without the administration of intravenous contrast. Coronal and sagittal reformatted images were also submitted for interpretation. Oral contrast was administered. FINDINGS: Liver: Normal morphology. Multiple hepatic cysts some of which are cysts and others which are too small to characterize. Gallbladder: Cholecystectomy. Bile ducts: No intra or extrahepatic biliary ductal dilatation. Pancreas: No lesions. The main pancreatic duct is not dilated. Spleen: The spleen is not enlarged. Adrenal glands: Within normal limits. Kidneys: No hydronephrosis. Enlarged bilateral kidneys with innumerable renal cysts compatible with polycystic kidney disease. Ureters: Within normal limits. Urinary bladder: Within normal limits. Reproductive organs: Enlarged prostate measuring up to 5.4 cm. Peritoneum: No ascites or free intraperitoneal air. Bowel: Normal caliber. Colonic diverticulosis without evidence of acute diverticulitis. Normal appendix. Lymph nodes: No lymphadenopathy. Vessels: Atherosclerosis in the abdominal aorta and branch vessels. Lack stones. Abdominal wall: Within normal limits. Computed Tomography Report Osseous structures: No acute findings. Minimal scoliosis. Anterolisthesis of L3 on L4 measuring 0.7 cm. Remote right-sided rib fractures. Lower thorax: Emphysematous changes. Small pericardial effusion measuring up to 1.1 cm in thickness. Atherosclerosis in the coronary arteries. IMPRESSION: - Lack of IV contrast limits the evaluation for infectious and neoplastic processes. - No acute findings. - Enlarged bilateral kidneys with innumerable renal cysts compatible with polycystic kidney disease. Evaluation for suspicious lesions is limited by lack of IV contrast. MRI can be obtained for further evaluation as clinically indicated. - Multiple hepatic cysts some of which are cysts and others which are too small to characterize. - Colonic diverticulosis without evidence of acute diverticulitis. Normal appendix. - Enlarged prostate measuring up to 5.4 cm. - Extensive atherosclerosis in the abdominal aorta and bilateral iliac vessels. Bilateral common iliac stents. iliac - Small pericardial effusion measuring up to 1.1 cm in thickness. Atherosclerosis in the coronary arteries. All CT scans are performed using dose optimization techniques as appropriate to the performed exam and include at least one of the following: Automated exposure control, adjustment of the mA and/or kV according to size, and the use of iterative reconstruction technique. Final Signed by: RENUKA BLUNT MD Signed (Electronic Signature): 12/08/2022 11:24 am CDT CAMILLE SILVA NP [address] [facility], [place], [address], [facility] [place] 12/11/2022 16:40:17 Mri, Abdomen, W/wo Contrast : [facility] Patient: ARELIS LANGLEY : 1965 Sex: Male Location: [facility] MRI Ordering Physician: CAMILLE SILVA NP Magnetic Resonance Imaging Accession Exam Date/Time [id number] 01/12/2023 10:42 ELECTROTYPE FINISHER Reason for Exam Lesion of liver Report EXAM: MRI ABDOMEN AND MRCP WITH AND WITHOUT CONTRAST TECHNIQUE: Multiplanar multisequence MRI of the abdomen before and after administration of IV contrast. Thin sliced radial 3-D MRCP was performed. HISTORY: Hepatic and renal cysts COMPARISON: CT 12/05/2022 FINDINGS: Lung bases: Clear. Liver: Normal morphology. No suspicious hepatic lesions. Multiple simple hepatic cysts are present. Gallbladder: Removed. Bile ducts: No intra or extrahepatic bile ductal dilatation. Spleen: The spleen is not enlarged. Pancreas: Normal signal intensity and enhancement. No solid masses. The main pancreatic duct is not dilated. Adrenal glands: Within normal limits. Kidneys: No hydronephrosis. Near complete replacement of the renal parenchyma bilaterally secondary to simple and complex cysts. The largest right-sided cyst arises from the lower pole and measures approximately 6.4 x 5.9 cm. The largest in the left kidney is in the lower pole measuring approximately 4.8 x 4.8 cm. There are multiple bilateral hemorrhagic cysts as well. No solid mass. Aorta: The major vessels are patent. No Aneurysm. Bowel: Normal caliber. No obstruction or wall thickening. Osseous structures: Unremarkable. IMPRESSION: 1. Simple and complex bilateral renal cysts in keeping with a dominant polycystic kidney disease. 2. Multiple simple hepatic cysts. Magnetic Resonance Imaging Report 3. Cholecystectomy. No biliary obstruction. Final Signed by: Daniele Soriano DO Signed (Electronic Signature): 01/12/2023 11:40 am ELECTROTYPE FINISHER CAMILLE SILVA, [place] [address] [place], [address], [facility] [place] 01/13/2023 19:43:26 Problems Name Problem SNOMED Code Status Onset Date Resolution Date Notes Provider Name and Address Organization Details Recorded Time Abdominal pain 92861617 Active 023 Sherry Trevino MORTGAGE LOAN PROCESSOR null, [place] - [facility] [place] 3 10:38:43 Diarrhea [id number] Active 023 Sherry Trevino [employer]ORTGAGE LOAN PROCESSOR [place], [place] [facility] [place] 3 14:33:15 Lesion of liver 098277668 Active 023 Sherry Trevino [employer] LOAN PROCESSOR [place], [place] [facility] [place] 3 13:53:47 Problem Notes None recorded. Medical Equipment None Reported. Allergies Allergen ID Allergen Name Allergen Category Reaction Reaction Severity Criticality Documentation Date Start Date Code Code System Note Provider Name and Address Organization Details Recorded Time 012683 Substance with sulfonami de structure and antibacte rial mechanism of action (substanc e) medicatio n Not available Not available Not available 05/20/2022 [id number] SNOMED Isamar Mahan LPN null, [place] - [facility] [place] 3 14:26:01 Medications Name Sig Start Date Stop Date Status Note LastModified by Organization Details LastModified Time atorvastati n 40 mg tablet active Not Available Not Available Not Available buspirone 5 mg tablet TAKE 1 TABLET BY MOUTH TWICE DAILY NEEDED FOR ANXIETY FOR 30 DAYS active Not Available Not Available No t Available metformin 500 mg tablet TAKE 2 TABLETS BY MOUTH ONCE DAILY NEEDED FOR HYPERGLYC EMIA active Not Available Not Available No t Available prednisone 10 mg tablet TAKE 6 TABLETS BY MOUTH EVERY DAY FOR 3 DAYS THEN TAKE 4 TABLETS BY MOUTH EVERY DAY FOR 3 DAYS THEN TAKE 2 TABLETS BY MOUTH EVERY DAY FOR 3 DAYS THEN TAKE 1 TABLET BY MOUTH EVERY DAY FOR 3 DAYS 09/18 completed Not Available Not Available Not Available gabapentin 600 mg tablet TAKE 1 TABLET BY MOUTH 3 TIMES DAILY 09/18 completed Not Available Not Available Not Available ketoconazol e 2 % shampoo Lather onto scalp 2-3 times weekly. Allow to sit 5 minutes prior to rinsing. active Not Available Not Available No t Available clindamycin HCl 300 mg capsule TAKE 1 CAPSULE BY MOUTH 4 TIMES DAILY FOR 10 DAYS 09/18 completed Not Available Not Available Not Available cilostazol 50 mg tablet TAKE 2 TABLETS BY MOUTH EVERY DAY active Not Available Not Available No t Available tizanidine 4 mg tablet TAKE 1 TABLET BY MOUTH TWICE DAILY NEEDED FOR MUSCLE SPASTICIT Y active Not Available Not Available No t Available citalopram 10 mg tablet TAKE 1 TABLET BY MOUTH EVERY DAY FOR 90 DAYS active Not Available Not Available No t Available valacyclovi r 1 gram tablet TAKE 1 TABLET BY MOUTH 3 TIMES DAILY FOR 7 DAYS active Not Available Not Available No t Available albuterol sulfate 1.25 mg/3 mL solution for nebulizatio n USE one vial IN NEBULIZER EVERY 6 HOURS NEEDED FOR bronchosp asm FOR 30 DAYS active Not Available Not Available No t Available hydrocodone 5 mg-acetamin ophen 325 mg tablet TAKE 1 TABLET BY MOUTH EVERY 4 HOURS NEEDED FOR PAIN FOR 30 DAYS. MAX DAILY 4 TABLETS. HOLD WITHIN 4 HOURS OF PLANNED SLEEP. DO NOT REFILL UNTIL 09/27/22 active Not Available Not Available No t Available lisinopril 20 mg tablet active Not Available Not Available Not Available prednisone 20 mg tablet TAKE 1 TABLET BY MOUTH DAILY FOR JOINT PAIN FLARE active Not Available Not Available No t Available prednisone 5 mg tablet TAKE 2 TABLETS BY MOUTH EVERY DAY directed 09/18 completed Not Available Not Available Not Available acetaminoph en 300 mg-codeine 30 mg tablet TAKE 1 TABLET BY MOUTH 3 TIMES DAILY NEEDED active Not Available Not Available No t Available clopidogrel 75 mg tablet TAKE 1 TABLET BY MOUTH EVERY DAY active Not Available Not Available No t Available tramadol 50 mg tablet TAKE 1 TABLET BY MOUTH TWICE DAILY NEEDED FOR PAIN FOR 30 DAYS active Not Available Not Available No t Available triamcinolo ne acetonide 0.1 % topical cream Apply twice daily to psoriasis up to 2 weeks/thu as needed. Use around neck/ears active Not Available Not Available No t Available rifampin 300 mg capsule TAKE 2 CAPSULES BY MOUTH EVERY DAY FOR 30 DAYS active Not Available Not Available No t Available citalopram 20 mg tablet TAKE 1 TABLET BY MOUTH EVERY DAY FOR 90 DAYS active Not Available Not Available No t Available amitriptyli ne 25 mg tablet TAKE 1 TABLET BY MOUTH ONCE EVERY NIGHT AT BEDTIME FOR 90 DAYS active Not Available Not Available No t Available temazepam 15 mg capsule TAKE 1 CAPSULE BY MOUTH ONCE EVERY NIGHT AT BEDTIME FOR 30 DAYS active Not Available Not Available No t Available tamsulosin 0.4 mg capsule TAKE 1 CAPSULE BY MOUTH DAILY active Not Available Not Available No t Available gabapentin 800 mg tablet TAKE 1 TABLET BY MOUTH 3 TIMES DAILY FOR 90 DAYS active Not Available Not Available No t Available temazepam 30 mg capsule TAKE 1 CAPSULE BY MOUTH ONCE A NIGHT AT BEDTIME FOR 30 DAYS active Not Available Not Available No t Available OneTouch Ultra Test strips USE 1 STRIP TO CHECK GLUCOSE THREE TIMES DAILY (DX E11.9) active Not Available Not Available No t Available ethambutol 400 mg tablet TAKE 2 & ONE-HALF TABLET BY MOUTH EVERY EVENING active Not Available Not Available No t Available pantoprazol e 40 mg tablet,patrick yed release TAKE 1 TABLET BY MOUTH EVERY DAY active Not Available Not Available No t Available hyoscyamine sulfate 0.125 mg tablet TAKE 1 TABLET BY MOUTH EVERY 6 HOURS NEEDED 2022 active Not Available Not Available Not Avai lable nitroglycer in 0.4 mg sublingual tablet DISSOLVE 1 TABLET UNDER TONGUE EVERY 5 MINUTES NEEDED FOR CHEST PAIN. MAY TAKE UP TO 3 DOSES PER EPISODE; IF NO RELIEF AFTER 3RD DOSE, CALL 911 OR SEEK EMERGENCY CARE active Not Available Not Available No t Available hydrocortis one 2.5 % topical cream APPLY TO EARS TWICE DAILY NEEDED FOR FLARES active Not Available Not Available No t Available metoprolol succinate ER 25 mg tablet,exte nded release 24 hr TAKE 1 TABLET BY MOUTH TWICE DAILY active Not Available Not Available No t Available hydroxychlo roquine 200 mg tablet TAKE 1 TABLET BY MOUTH TWICE DAILY active Not Available Not Available No t Available calcipotrie ne 0.005 % scalp solution Apply enough to cover topically daily. active Not Available Not Available No t Available albuterol sulfate HFA 90 mcg/actuati on aerosol inhaler USE 2 INHALATIO NS every 6 HOURS Needed FOR Shortness OF Breath active Not Available Not Available No t Available clobetasol 0.05 % scalp solution Apply to scalp daily active Not Available Not Available No t Available cefdinir 300 mg capsule TAKE 1 CAPSULE BY MOUTH TWICE DAILY FOR 5 DAYS 09/18 completed Not Available Not Available Not Available fluticasone propionate 50 mcg/actuati on nasal spray,suspe nsion INSTILL 2 SPRAYS IN EACH NOSTRIL ONCE A DAY active Not Available Not Available No t Available metformin ER 500 mg tablet,exte nded release 24 hr TAKE 1 TABLET BY MOUTH EVERY DAY FOR 30 DAYS active Not Available Not Available No t Available doxycycline hyclate 100 mg tablet TAKE 1 TABLET BY MOUTH TWICE DAILY active Not Available Not Available No t Available dicyclomine 10 mg capsule Take 1 capsule 3 times a day by oral route as needed. active Not Available Not Available No t Available atovaquone 750 mg/5 mL oral suspension TAKE 10 ML BY MOUTH EVERY DAY WITH FOOD, PREFERABL Y A HIGH FAT MEAL active Not Available Not Available No t Available metoclopram alessandro 10 mg tablet TAKE 1 TABLET BY MOUTH EVERY 8 HOURS active Not Available Not Available No t Available amoxicillin 875 mg-potassiu m clavulanate 125 mg tablet TAKE 1 TABLET BY MOUTH TWICE DAILY active Not Available Not Available No t Available hydroxyzine pamoate 25 mg capsule TAKE 1 CAPSULE BY MOUTH EVERY DAY NEEDED FOR ANXIETY FOR 30 DAYS active Not Available Not Available No t Available ciclopirox 0.77 % topical cream APPLY TOPICALLY TO EARS TWICE DAILY NEEDED FOR 4 WEEKS active Not Available Not Available No t Available azithromyci n 500 mg tablet TAKE 1 TABLET BY MOUTH EVERY EVENING FOR infection active Not Available Not Available No t Available cyclobenzap rine 5 mg tablet TAKE 1 TABLET BY MOUTH 3 TIMES DAILY NEEDED FOR MUSCLE SPASM active Not Available Not Available No t Available cholestyram ine (with sugar) 4 gram oral powder MIX 1 SCOOP IN 8 OUNCES OF WATER TWICE DAILY active Not Available Not Available No t Available Xifaxan 200 mg tablet TAKE 3 tablets BY MOUTH TWICE DAILY directed FOR 10 DAYS active Not Available Not Available No t Available ramelteon 8 mg tablet TAKE 1 TABLET BY MOUTH ONCE EVERY NIGHT AT BEDTIME FOR 30 DAYS active Not Available Not Available No t Available Symbicort 160 mcg-4.5 mcg/actuati on HFA aerosol inhaler USE 2 INHALATIO NS BY MOUTH TWICE DAILY active Not Available Not Available No t Available prasugrel HCl 10 mg tablet TAKE 1 TABLET BY MOUTH EVERY DAY active Not Available Not Available No t Available Xifaxan 550 mg tablet TAKE 1 TABLET BY MOUTH TWICE DAILY active Not Available Not Available No t Available Suprep Bowel Prep Kit 17.5 gram-3.13 gram-1.6 gram oral solution Take 177 mL twice a day by oral route as directed for 1 day. active Not Available Not Available No t Available Actemra 162 mg/0.9 mL subcutaneou s syringe INJECT 0.9 ML (162 MG) SUB-Q EVERY 7 DAYS active Not Available Not Available No t Available Anoro Ellipta 62.5 mcg-25 mcg/actuati on powder for inhalation USE 1 INHALATIO N BY MOUTH EVERY DAY FOR 30 DAYS active Not Available Not Available No t Available naloxone 4 mg/actuatio n nasal spray EMERGENCY USE ONLY CALL 911. ADMINISTE R 1 SPRAY INTO 1 NOSTRIL. MAY REPEAT IN ALTERNATI NG NOSTRILS EVERY 2 TO 3 MINUTES NEEDED FOR OPIOID OVERDOSE UNTIL PATIENT IS RESPONSIV E OR EMS ARRIVES active Not Available Not Available No t Available Arikayce 590 mg/8.4 mL suspension for inhalation via nebulizatio n active Not Available Not Available Not Available Vitals Date Recorded Body height Body mass index (BMI) Body weight Oxygen saturation Oxygen saturation in Arterial blood by Pulse oximetry Heart rate Respiratory rate Body temperature Pain severity - 0-10 verbal numeric rating [Score] - Reported Systolic And Diastolic Provider Name and Address Organization Details Last Updated DateTime 3 182.88 cm 24.7 kg/m2 28260.2 5 g 96 % 96 % 101 /min 18 /min 98.4 [degF] 2 141/66 mm[Hg] Faisal Cee [facility] 3 15:23:43 Date Recorded Body height Body mass index (BMI) Body weight Oxygen saturation Oxygen saturation in Arterial blood by Pulse oximetry Heart rate Systolic And Diastolic Provider Name and Address Organization Details Last Updated DateTime 3 182.88 cm 25 kg/m2 79174 g 97 % 97 % 111 /min 102/62 mm[Hg] Isamar Mahan [address] 3 14:31:26 Date Recorded Body height Body mass index (BMI) Body weight Oxygen saturation Oxygen saturation in Arterial blood by Pulse oximetry Heart rate Respiratory rate Systolic And Diastolic Provider Name and Address Organization Details Last Updated DateTime 3 182.88 cm 25.2 kg/m2 98017.1 8 g 94 % 94 % 93 /min 18 /min 138/80 mm[Hg] Faisal Cee [address] 3 14:06:22 Date Recorded Body height Body mass index (BMI) Body weight Oxygen saturation Oxygen saturation in Arterial blood by Pulse oximetry Heart rate Systolic And Diastolic Provider Name and Address Organization Details Last Updated DateTime 3 182.88 cm 24.5 kg/m2 71410.4 2 g 96 % 96 % 104 /min 145/72 mm[Hg] Gilles Sethi [address] 3 16:33:20 Date Recorded Body height Body mass index (BMI) Body weight Oxygen saturation Oxygen saturation in Arterial blood by Pulse oximetry Heart rate Systolic And Diastolic Provider Name and Address Organization Details Last Updated DateTime 3 182.88 cm 24.7 kg/m2 85600.8 9 g 96 % 96 % 111 /min 140/93 mm[Hg] Gilles Sethi LPN [facility] [place] 16:15:14 Social History Question Answer Notes LastModified by Organizat ion Details LastModified Time Tobacco Smoking Status Current Every Day Smoker Faisal Cee LPN null, [address] 08/15/2022 15:24:28 What Is Your Level Of Caffeine Consumption? Moderate Information not available 08/15/2022 What Was The Date Of Your Most Recent Tobacco Screening? 12/11/2022 Information not available 12/11/2022 How Much Tobacco Do You Smoke? 1 PPD Information not available 11/27/2022 Has Tobacco Cessation Counseling Been Provided? Yes Information not available 08/15/2022 On What Date Was Tobacco Cessation Counseling Provided? 10/16/2022 Information not available 10/16/2022 Sex: Unknown Functional Status Question Answer Note LastModified by Organizat ion Details LastModified Time Do you use any illicit or recreational drugs? No Information not available 08/15/2022 Do you or have you ever used any other forms of tobacco or nicotine? No Information not available 08/15/2022 What is your level of alcohol consumption? None Information not available 08/15/2022 Mental Status None recorded. Family History Nothing Reported. Medical History No medical history recorded. Past Encounters Encounter ID Performer Location Encounter Start Date Encounter Closed Date Diagnosis/Indication Diagnosis SNOMED-CT Code Diagnosis ICD10 Code Diagnosis IMO Codes Diagnosis Note [id number] Jose Urias MD [facility] [address] [place] [address] 05/20/2022 14:05:44 05/20/2022 14:44:39 Gastroesophageal reflux disease without esophagitis 658670326 K21.9 Diarrhea 09821310 R19.7 Family his tory of Crohn's disease 058335513 Z83.79 [id number] Jose Urias MD [facility] [address] [place] [address] 06/27/2022 14:55:12 06/27/2022 15:21:42 [id number] Jose Urias MD [facility] [address] [place] [address] 08/15/2022 14:54:09 08/15/2022 15:32:45 Diarrhea 23370646 R19.7 [id number] Jose Urias MD [facility] [address] [place] [address] 09/18/2022 13:54:08 09/18/2022 15:10:55 Postcholecystectomy syndrome 01997594 K91.5 Diarrhea 61151805 R19.7 Diverticul osis of colon 220036663 K57.30 [id number] Jose Urias MD [facility] [address] [place] [address] 10/16/2022 13:47:03 10/16/2022 14:20:00 Diarrhea 59620543 R19.7 Small janet l bacterial overgrowth syndrome 144840744 A04.9 [id number] Jose Urias MD [facility] [address] [place] [address] 11/27/2022 16:03:56 11/27/2022 17:46:05 Irritable bowel syndrome with diarrhea 796411419 K58.0 Diarrhea 58401951 R19.7 Abdominal pain 94236399 R10.9 [id number] Jose Urias MD [facility] [address] [place] [address] 12/11/2022 15:56:40 12/11/2022 17:27:24 Allergy to twlyxiwaz-ikbzj-8,3 galactose 031546434 Z88.8 Cyst of kidney 046126881 N28.1 Liver cyst 27419749 K76. 89 Large prostate 848997520 N40.0 Health Concerns Section Related Observation LastModified by Organization Detai ls LastModified Time None Recorded Concern Status LastModified by Organization Details LastModified Time None Recorded Advance Directives Directive None Recorded Payers Insurance Date Sequence Insurance Name Policy Number Policy Aragon Covered Member ID Aragon Member ID Guarantor Name 12/08/2022 1 [facility] (MEDICARE REPLACEMENT/A DVANTAGE - PPO) Arelis Langley [id number] Arelis Langley 11/27/2022 2 [place] Arelis Langley [id number] Arelis Langley Notes Date Note Type Note Provider Name and Address Organization Details Recorded Time 3 text/html This is a 56-year-old male who presents for follow-up. Patient continues to have diarrhea. Colonoscopy 07/25/2022 revealed small hemorrhoids, moderate sigmoid diverticulosis, 4 mm red spots involving the cecum otherwise normal examination and TI. Random colon, TI and red spot biopsies are pending at time of dictation. EGD revealed a 4 sodomy had a hernia and gastritis. Patient is on Protonix [address] scan of the abdomen pelvis with contrast 06/04/2022 revealed known polycystic kidney disease, hepatic cyst, previous cholecystectomy, normal appendix, moderate sigmoid diverticulosis. Laboratory studies 05/20/2022 revealed negative celiac sprue, PT 10.0, INR 0.9, TSH 1.59, WBC 9.2, hemoglobin 12.9, hematocrit 37.4, MCV 93.8, platelets 314, BUN 33, creatinine 2.2, sodium 135, potassium 4.9, chloride 104, CO2 22, albumin 3.5, albumin alk phos 54, AST 17, ALT 19, lipase 67, amylase 101, sed rate 25, C-reactive protein 1.90.Patient received cardiac clearance to undergo endoscopic evaluation and to hold the Plavix. Laboratory studies on 05/20/2022; WBC 9.2, hemoglobin 12.9, hematocrit 37.4, MCV 93.8, platelets 314, amylase 101, BUN 33, creatinine 2.2, sodium 135, potassium 4.9, chloride 104, CO2 22, albumin 3.5, AST 17, ALT 719, C-reactive protein 1.9, lipase 67, TSH 1.59, PT 10.0, INR 0.9, sed rate 25, celiac sprue negative. The patient states that he had a CT scan done approximately 1 month ago and was told he had polycystic changes. Patient does have a history of congestive heart failure. He reports having intermittent swelling of his right upper quadrant.The patient was initially seen for evaluation of GERD, unexplained diarrhea and family history of Crohn's disease. Patient states that he underwent an EGD and colonoscopy approximately 1 year ago. Patient was told he had inflammation of the colon. Copy of this report is not available at time dictation. Patient reports having persistent diarrhea causing dehydration and electrolyte abnormalities. Patient has a history of GERD and is on Protonix. The patient has had a cholecystectomy, hernia repair and stent placement in the past.Last intracoronary stent was 2014. He had peripheral vascular stenting in December 2021. Patient continues to smoke cigarettes. He denies abnormalities. He reports a family history of Crohn's disease in his mother. The patient had previously been on Plavix but discontinued due to intolerance. Follow-upImpression:1. Chronic diarrhea. Etiology unclear. Status post EGD and colonoscopy. Biopsies pending. Previous cholecystectomy.2. Colonic diverticulosis3. Family history of Crohn's disease in mother4. GERD; Protonix 40 mg daily5. Status postcholecystectomy6. Antiplatelet therapy7. Acute kidney injury8. Polycystic liver9. Other medical issues: Dyslipidemia, peripheral vascular disease, tobacco useRecommendations:1. Start cholestyramine 1 scoop at 8 PM daily for treatment of postcholecystectomy diarrhea2. Protonix 40 mg p.o. daily3. Low FODMAP diet4. Plavix therapy5. Follow-up in 2 weeks for clinical reassessment Jose Urias MD [facility] [place], [address], [facility] [place] 08/15/2022 15:39:25 3 text/html This is a 56-year-old male who presents for follow-up. The patient reports that his diarrhea has improved with increasing cholestyramine to twice daily. The patient is also taking hyoscyamine. He reports having rectal urgency. The patient states that approximately 10 years ago a physician had given him IBgard and Xifaxan. The patient had improvement of his symptoms.The patient was started on cholestyramine for suspected postcholecystectomy diarrhea. The patient reports a 30 to 40% improvement. The patient is not taking Protonix. He stopped several months ago. Patient is not taking metformin. The patient reports having postprandial rectal urgency and diarrhea. Patient feels that his symptoms may be related to irritable bowel syndrome. The patient states that he is not consuming any sugary drinks.Colonoscopy 07/25/2022 revealed small hemorrhoids, moderate sigmoid diverticulosis, 4 mm red spots involving the cecum otherwise normal examination and TI. Random colon, TI and red spot biopsies are pending at time of dictation. EGD revealed a 4 cm hiatal hernia and gastritis. Biopsy results of the terminal ileum were normal, colon biopsies revealed no microscopic colitis, red spot revealed normal colonic mucosa, GE junction biopsies revealed mild reactive changes, duodenal biopsies revealed normal villous structure no celiac sprue, gastric biopsies revealed no H. pylori infection.The patient sees nephrology in [place]. Patient has a history of polycystic disease.CT scan of the abdomen pelvis with contrast 06/04/2022 revealed known polycystic kidney disease, hepatic cyst, previous cholecystectomy, normal appendix, moderate sigmoid diverticulosis. Laboratory studies 05/20/2022 revealed negative celiac sprue, PT 10.0, INR 0.9, TSH 1.59, WBC 9.2, hemoglobin 12.9, hematocrit 37.4, MCV 93.8, platelets 314, BUN 33, creatinine 2.2, sodium 135, potassium 4.9, chloride 104, CO2 22, albumin 3.5, albumin alk phos 54, AST 17, ALT 19, lipase 67, amylase 101, sed rate 25, C-reactive protein 1.90.Patient received cardiac clearance to undergo endoscopic evaluation and to hold the Plavix. Laboratory studies on 05/20/2022; WBC 9.2, hemoglobin 12.9, hematocrit 37.4, MCV 93.8, platelets 314, amylase 101, BUN 33, creatinine 2.2, sodium 135, potassium 4.9, chloride 104, CO2 22, albumin 3.5, AST 17, ALT 719, C-reactive protein 1.9, lipase 67, TSH 1.59, PT 10.0, INR 0.9, sed rate 25, celiac sprue negative. The patient states that he had a CT scan done approximately 1 month ago and was told he had polycystic changes. Patient does have a history of congestive heart failure. He reports having intermittent swelling of his right upper quadrant.The patient was initially seen for evaluation of GERD, unexplained diarrhea and family history of Crohn's disease. Patient states that he underwent an EGD and colonoscopy approximately 1 year ago. Patient was told he had inflammation of the colon. Copy of this report is not available at time dictation. Patient reports having persistent diarrhea causing dehydration and electrolyte abnormalities. Patient has a history of GERD and is on Protonix. The patient has had a cholecystectomy, hernia repair and stent placement in the past.Last intracoronary stent was 2014. He had peripheral vascular stenting in December 2021. Patient continues to smoke cigarettes. He denies abnormalities. He reports a family history of Crohn's disease in his mother. The patient had previously been on Plavix but discontinued due to intolerance. Follow-upImpression:1. Chronic diarrhea.-- Improvement with cholestyramine 1 scoop twice daily-- possible SIBO-- possible IBS--Etiology unclear.--Status post EGD and colonoscopy. Biopsy results revealed no evidence of microscopic colitis or ileitis or celiac sprue.. Patient is status post cholecystectomy. Patient reports a 30 to 40% improvement of his symptoms with cholestyramine for postcholecystectomy diarrhea. Patient feels his symptoms may be related to IBS.2. Colonic diverticulosis3. Family history of Crohn's disease in mother4. GERD; Protonix 40 mg daily5. Status postcholecystectomy6. Antiplatelet therapy with Plavix7. Polycystic liver8. Anticoagulated on Plavix9. Chronic kidney injury. Patient has polycystic kidney disease. [id number] Other medical issues: Dyslipidemia, peripheral vascular disease, tobacco useRecommendations:1. No objection to patient to take IBgard2. Xifaxan 550 mg twice daily x10 days for SIBO3. Continue cholestyramine 1 scoop twice daily4. Continue Levsin/hyoscyamine 0.125 mg every 6 hours as needed for abdominal pain/urgency5. Maintain low FODMAP diet6. Give consideration to a trial of pancreatic enzyme replacement if symptoms continue7. Follow-up in 4 weeks. Jose Urias MD [address] [facility], [place], [address], [facility] [place] 10/16/2022 18:34:01 3 text/html 56 y/o male presents to clinic for follow up after being treated with xifaxan. He reports that he is having to run to the bathroom after eating. He is taking his cholestyramine powder twice daily. He reports having abdominal pain on the left side. He report that it has gotten worse since he had his last imaging completed in May of this year. He reports that he drinks a good amount of water daily. CAMILLE SILVA NP [address] [facility], [place], [address], [facility]14 [place] 11/27/2022 17:19:59 3 text/html 56 y/o male presents to clinic for follow up after having imaging and laboratory studies completed. He reports that he has been following a mammal free diet. He reports that he is feeling better with making the dietary changes. He reports that he has to get up multiple times in the night to go pee but does not feel like he empties when he goes. CAMILLE SILVA NP [address] [facility], [place], [address], [facility]14 [place] 12/11/2022 17:21:15
--- OUTSIDE RECORDS SUMMARY | 2024-12-05 20:41 | XMS_ITS | Encounter Summary ---
Author Organization [facility] Address [address] [place] [address] Phone Care Team Providers Care Plant Operations Worker Name Role Phone Elis Keller RN Unavailable Chano Parks MD Unavailable [phone] Sarah Kay MD Unavailable [phone] Pat Edwards MD Unavailable [phone] Datar, Jose Guadalupe Sosa MD Unavailable Gilles Estrella MD Unavailable Laverne Logan RN Unavailable [phone] Lorie Mccormack SECURITY SITE SUPERVISOR Primary Care Provider + Henrietta Schneider MD Unavailable Acacia Wells NP Unavailable Delmy Hagan Unavailable Unavailable Encounter Details Date Type Department Care Team (Late st Contact Info) Description 11/28/[address] [facility] Medicine Physicians [facility] [address] [place] [address] [address] [place] [address] Jack Nicholas CMA Social History Tobacco Use Types Packs/Day Years Used Date Smoking Tobacco: Former Cigarettes 1.5 20 0 05/12/2003 - 05/12/2023 Smokeless Tobacco: Never [facility] Utilities Answer Date Recorded In the [...] often do you attend chur ch or yazdanism services? Never 10/09/2023 Do you belong to any clubs o r organizations such as orthodox groups, unions, fraternal or athletic groups, or [...] any time in the past 12 m [facility], were you homeless or living in a alf (including now)? No 10/09/2023 Personal Safety Answer [...] on file documented as of this encounter Miscellaneous Notes * Telephone Encounter - Jack Nicholas CMA - 11/28/2024 10:18 AM CDT Spoke with patient about visit scheduled for 12/05 at the [facility] location since he has frequented the [facility] location for his visits, patient stated that he needed an afternoon apt due to his drive time so that is why he chose to come to [place] instead. --Jack documented in this encounter Plan of Treatment Not on file documented as of this encounter Visit Diagnoses Not on filedocumented in this encounter Care Teams Plant Operations Worker Relationship Specialty Start Date End Date Lorie Mccormack NP [address] [place], [place] [id number] PCP - General Family Medicine 09/11/23 Elis Keller, RIHCARD [address] [place], [place] [id number] Racquet Maker 07/23/23 Chano Parks MD [address] [facility] [address] [place], [place] [id number] Referring Physician Transplant 07/23/23 Sarah Kay MD [address] [place] [address] Referring Physician Cardiovascular Disease 07/24/23 Pat Edwards MD [address] [facility] [address] Internal Medicine 07/24/23 DatarJose Guadalupe MD [address] [place] [address] Internal Medicine 07/24/23 Gilles Estrella MD [address] [place] [address] Buttonhole Marker Transplant 09/03/23 Laverne Logan, RN [address] [address] Heart Failure Coordinator Racquet Maker 09/03/23 Henrietta Schneider MD [address] [place] [address] Nephrology 09/29/23 Acacia Wells NP [address] [place] [address] 09/29/23 Delmy Hagan Primary Extrusion Die Template Maker 11/03/24 documented as of this encounter
--- OUTSIDE RECORDS SUMMARY | 2024-12-05 20:41 | XMS_ITS | Encounter Summary ---
Author Organization [facility] Address [address] [place] [address] Phone Care Team Providers Care Color Laboratory Technician Name Role Phone Lorie Mccormack VAISHALI Primary Care Provider [phone] Encounter Details Date Type Department Care Team (Late st Contact Info) Description 12/01/2024 Documentation Only [facility] [address] [place] [address] Faustina Mcfadden [address] [place] [address] Social History Tobacco Use Types [...] Description 12/06/2024 3:00 PM CDT Office Visit [facility] [address] [place] [address] Acacia Wells NP [address] [place] [address] documented as of this encounter Visit Diagnoses Not on filedocumented in this encounter Care Teams Color Laboratory Technician Relationship Specialty Start Date End Date Lorie Mccormack FNP [address] [place] [address] PCP - General Family Medicine 12/01/24 documented as of this encounter
--- OUTSIDE RECORDS SUMMARY | 2024-12-05 20:41 | XMS_ITS | Encounter Summary ---
Author Organization [facility] [place] [facility] Address [address] [place] [address] Phone Care Team Providers Care Construction Equipment Operator Name Role Phone Lorie Mccormack VAISHALI Primary Care Provider [phone] Encounter Details Date Type Department Care Team (Late st Contact Info) Description 12/01/2024 Documentation Only [facility] [address] [place] [address] Faustina Mcfadden [address] [place] [address] Social History Tobacco Use Types [...] Description 12/06/2024 3:00 PM CDT Office Visit [place] [facility] [address] [place] [address] Acacia Wells NP [address] [place] [address] documented as of this encounter Procedures Procedure Name Priority Date/Time Associated Diagnosis Comments CBC (INCLUDES DIFF/PLT) (EXTERNAL LAB ENTRY) Routine 12/01/2024 11:44 AM CDT RENAL FUNCTION PANEL (EXTERNAL LAB ENTRY) Routine 12/01/2024 11:44 AM CDT documented in this encounter Results * CBC (Includes Diff/Plt) (External Lab) (12/01/2024 11:44 AM CDT) WBC 19.50 K/uL Red Blood Cell Count 4.84 Hemoglobin 15.7 g/dL Hematocrit 48.4 % MCV 100 MCH 32.4 MCHC 32.4 RDW 13.7 Platelet Count 213 MPV 9.3 Absolute Neutrophils 17.59 Absolute Lymphocytes 0.6 Absolute Monocytes 1.0 Absolute Eosinophils 0.1 Absolute Basophils 0.1 Neutrophils 90.2 K/uL Lymphocytes 3.14 Monocytes 5.0 Eosinophils 0.7 Basophils 0.4 Blood 12/01/2024 11:4 4 AM CDT Narrative Faustina Mcfadden - 12/01/2024 4:49 PM CDT [facility] Clinical Laboratory [address] [place] [address] Dr. Gamal Becker, Contracts Administrator Heri Calderon [facility] LAB BLOOD ORDERABLES Final Result * Renal Function Panel (External Lab) (12/01/2024 11:44 AM CDT) Glucose 96 mg/dL BUN 39 mg/dL eGFR Non-Afr Norwegian 24.5 Sodium 140 mEq/L Potassium 4.4 mEq/L Chloride 103 Carbon Dioxide 20 mmol/L Calcium 8.7 mg/dL Phosphorus, Serum 2.9 mg/dL Albumin (Blood) 4.2 g/dL Creatinine 2.7 mg/dL Anion Gap 21.4 Blood 12/01/2024 11:4 4 AM CDT Heri Calderon [facility] BLOOD ORDERABLES Final Result documented in this encounter Visit Diagnoses Not on filedocumented in this encounter Care Teams Construction Equipment Operator Relationship Specialty Start Date End Date Lorie Mccormack FNP [address] [place] [address] PCP - General Family Medicine 12/01/24 documented as of this encounter
--- OUTSIDE RECORDS SUMMARY | 2024-12-05 20:41 | XMS_ITS | Encounter Summary ---
Author Organization [facility] Address [address] [place] [address] Phone Care Team Providers Care Administrative Assistant Receptionist Name Role Phone Elis Keller RN Unavailable Chano Parks MD Unavailable [phone] Sarah Kay MD Unavailable Pat Edwards MD Unavailable [phone] Datar, Jose Guadalupe Sosa MD Unavailable Gilles Estrella MD Unavailable Laverne Logan RN Unavailable Lorie Mccormack ELECTRONIC INSTALLER Primary Care Provider + Henrietta Schneider MD Unavailable Acacia Wells NP Unavailable Delmy Hagan Unavailable Unavailable Encounter Details Date Type Department Care Team (Late st Contact Info) Description 12/23/2023 Orders Only [facility] Scanning, Provider Social History Tobacco Use Types Packs/Day Years Used Date Smoking Tobacco: Former Cigarettes 1.5 20 0 05/12/2003 - 05/12/2023 Smokeless Tobacco: Never [facility] Utilities Answer Date Recorded In the past 12 months has [employer] electric, gas, oil, or water company threatened [...] often do you attend chur ch or samaritan services? Never 10/09/2023 Do you belong to any clubs o r organizations such as sabianism groups, unions, fraternal or athletic groups, or [...] any time in the past 12 m [facility], were you homeless or living in a senior living (including now)? No 10/09/2023 Personal Safety Answer [...] Date/Time Associated Diagnosis Comments SCAN - LABS 12/23/2023 documented in this encounter Results * SCAN - LABS (12/23/2023) us Provider Scanning Final Result documented in this encounter Visit Diagnoses Not on filedocumented in this encounter Additional Health Concerns Infection Onset Date Last Indicated Resolved Time Tuberculosis (rule out) Comment:02/11/2024 IP Review: AFB identified as nonMTB organism. Umm Olsen RN Sputum AFB stain + 12/29/2023 12/29/2023 02/11/2024 10:50 AM ENVELOPE SEALER OPERATOR documented as of this encounter Care Teams Administrative Assistant Receptionist Relationship Specialty Start Date End Date Lorie Mccormack NP [address] [place] [address] PCP - General Family Medicine 09/11/23 Elis Keller, RICHARD [address] [place] [address] Climbing Guide 07/23/23 Chano Parks MD [address] [facility] [address] [place] [address] Referring Physician Transplant 07/23/23 Sarah Kay MD [address] [place] [address] Referring Physician Cardiovascular Disease 07/24/23 Pat Edwards MD [address] [place] [address] [place] [address] Internal Medicine 07/24/23 Datar, Jose Guadalupe Soas MD [address] [place] [address] Internal Medicine 07/24/23 Gilles Estrella MD [address] [place] [address] Professor Of Languages Transplant 09/03/23 Laverne Logan, RICHARD [address] [address] Heart Failure Coordinator Climbing Guide 09/03/23 Henrietta Schneider MD [address] [place] [id number] Nephrology 09/29/23 Acacia Wells NP [address] [place] [id number] 09/29/23 Delmy Hagan Primary Battery Hand 11/03/24 documented as of this encounter
--- OUTSIDE RECORDS SUMMARY | 2024-12-05 20:41 | XMS_ITS | Encounter Summary ---
Author Organization [employer] [facility] Address [address] [place] [address] Phone Care Team Providers Care Field Tech Name Role Phone Lorie Mccormack VAISHALI Primary Care Provider [phone] Encounter Details Date Type Department Care Team (Late Contact Info) Description 12/05/2024 Documentation Only [employer] [address] [place] [address] Estefania Ayers MA [address] [facility] [address] [place] [address] Social History Tobacco Use Types [...] Encounters Date Type Department Care Team (Late Contact Info) Description 12/06/2024 3:00 PM CDT Office Visit [employer] [address] [place] [address] Acacia Wells NP [address] [place] [address] documented as of this encounter Visit Diagnoses Not on filedocumented in this encounter Care Teams Field Tech Relationship Specialty Start Date End Date Lorie Mccormack FNP [address] [place] [address] PCP - General Family Medicine 12/01/24 documented as of this encounter
--- OUTSIDE RECORDS SUMMARY | 2024-12-05 20:41 | XMS_ITS | Clinical Summary ---
Author Organization [facility] Address [address] [place] [address] Care Team Providers Care Trauma Director Name Role Phone Unavailable Primary Care Provider Unavailabl e Allergies Active Allergy Reactions Criticality Noted Date Comments Sulfa (Sulfonamide Antibiotics) Hives 09/2020 Medications No known medications Active Problems No known active problems Social History Tobacco Use Types Packs/Day Years Used Date Smoking Tobacco: Every Day Smokeless Tobacco: Never Sex and Gender Information Value Date Recorded Sex Assigned at Not on file Legal Sex Male 5:43 PM CDT Gender Identity Not on file Sexual Orientation Not on file Last Filed Vital Signs Vital Sign Reading Time Taken Comments Blood Pressure 113/83 10/24/2020 7:13 PM CDT Pulse 101 10/24/2020 7:13 PM CDT Temperature 37 C (98.6 F) 10/24/2020 7:13 PM CDT Respiratory Rate - - Oxygen Saturation 98% 10/24/2020 7:13 PM CDT Inhaled Oxygen Concentration - - Weight 77.2 kg (170 lb 3.2 oz) 10/24/2020 7:13 P M CDT Height 182.9 cm (6') 10/24/2020 7:13 PM CDT Body Mass Index 23.08 10/24/2020 7:13 PM CDT Plan of Treatment Health Maintenance Due Date Last Done Comments Medicare Annual Wellness 1965 Hepatitis B Vaccines (1 of 3 - 19+ 3-dose series) 1985 Colonoscopy 12/19/2011 Pneumococcal Vaccine: 50+ Years (1 of 1 - PCV) 2016 Shingrix (ZOSTER RECOMBINANT ) (2 of 2) 11/16/2018 09/21/2018 Influenza Vaccination (#1) 2024 Td, Tdap Vaccines Adult 12/26/2027 12/26/19 18, 07/22/2016 HIB Vaccines Aged Out No longer eligi ble based on patient's age to complete this topic HPV Vaccines Aged Out No longer eligi ble based on patient's age to complete this topic Hepatitis A Vaccines Aged Out No long er eligible based on patient's age to complete this topic IPV Vaccines Aged Out No longer eligi ble based on patient's age to complete this topic Meningococcal Vaccines Aged Out No lo nger eligible based on patient's age to complete this topic RSV Mab Nirsevimab (Beyfortu s) <20 months Aged Out No longer eligible b ased on patient's age to complete this topic Rotavirus Vaccines Aged Out No longer eligible based on patient's age to complete this topic Insurance [facility]
--- OUTSIDE RECORDS SUMMARY | 2024-12-05 20:41 | XMS_ITS | Encounter Summary ---
Author Organization [facility] Address [address] [place] [address] Care Team Providers Care Home Economics Extension Worker Name Role Phone Unavailable Primary Care Provider Unavailabl e Encounter Details Date Type Department Care Team (Late st Contact Info) Description 11/30/2024 Orders Only [facility] Cardiovas and Thor Surg at [facility] [address] [facility] [address] [place] [address] Clara Dobson, JUVENTINO [address] [facility] [facility] [address] [place] [address] Social History Tobacco Use Types Packs/Day Years Used Date Smoking Tobacco: Every Day Cigarettes 1.6 30.8 Started: 1994 Smokeless Tobacco: Never Alcohol Use Standard Drinks/Week Comments No 0 (1 standard drink = 0.6 oz pur e alcohol) Feeling Safe Answer Date Recorded Are you in a relationship wi th someone who hurts you emotionally and/or physically? No 11/25/2023 Sex and Gender Information Value Date Recorded Sex Assigned at Not on file Legal Sex Male 2:22 PM TANK CAR LOADER Gender Identity Not on file Sexual Orientation Not on file documented as of this encounter Plan of Treatment Upcoming Encounters Date Type Department Care Team (Late st Contact Info) Description 03/22/2025 2:00 PM TANK CAR LOADER Office Visit [facility] Neurology - [place] [address] [place] [address] Pily Alvarez MD [address] [place] [address] documented as of this encounter Visit Diagnoses Not on filedocumented in this encounter
--- OUTSIDE RECORDS SUMMARY | 2024-12-05 20:41 | XMS_ITS | Clinical Summary ---
Author Organization [facility] Address [address] [place] [address] Care Team Providers Care Plans Examiner Name Role Phone Elis Keller RN Unavailable Chano Parks MD Unavailable [phone] Sarah Kay MD Unavailable Pat Edwards MD Unavailable [phone] 1 Datar, Jose Guadalupe Sosa MD Unavailable Gilles Estrella MD Unavailable Laverne Logan RN Unavailable Lorie Mccormack DELPHI DEVELOPER Primary Care Provider + Henrietta Schneider MD Unavailable [phone] Acacia Wells NP Unavailable [phone] Delmy Hagan Unavailable Unavailable Allergies Active Allergy Reactions Criticality Noted Date Comments 1 Alpha-Gal Unknown Dairy Tolerance (Dsvrsfeju-Mbcua-1,3-Galac tose) Stomach upset,Diarrhea,Nausea And Vomiting Low 07/22/2023 Rosuvastatin Other (See comments) Low 12/25/2020 Leg Pain Sulfa (Sulfonamide Antibiotics) Itching Low 08/22/2020 Venom-Wasp Anaphylaxis High 06/04/2011 Medications albuterol 2.5 mg /3 mL (0.083 %) nebulizer solutionIndicatio ns:Chronic Obstructive Pulmonary Disease Take 3 mL (2.5 mg total) by nebulization every 4 (four) hours as needed for wheezing or shortness of breath 09/18/19 21 Active Space Chamber spacer USE WITH ALBUTEROL INHALER 09/18/19 21 Active hydrOXYchloroQUIN E (PLAQUENIL) 200 mg tablet Take 1 tablet (200 mg total) by mouth 2 (two) times a day 60 tablet 1 09/29/19 21 Active blood glucose diagnostic strip DX: 250.00 DM Non-Insulin Dep Patient checks blood sugar 7 day(s) per week and 2 time(s) per day. Patient/Caregive r has successfully completed training or is scheduled: yes 06/04/19 12 Active blood-glucose meter misc DX: 250.00 DM Non-Insulin Dep Patient checks blood sugar 7 day(s) per week and 2 time(s) per day. Patient/Caregive r has successfully completed training or is scheduled: yes 06/04/19 12 Active lancets misc DX: 250.00 DM Non-Insulin Dep Patient checks blood sugar 7 day(s) per week and 2 time(s) per day. Patient/Caregive r has successfully completed training or is scheduled: yes 06/04/19 12 Active Arikayce 590 mg/8.4 mL nebulizer suspensionIndicat ions:refractory Mycobacterium avium complex pulmonary disease Take 8.4 mL (590 mg total) by nebulization every evening 09/27/19 23 Active aspirin 81 mg enteric coated tabletIndications :Myocardial Reinfarction Prevention Take 1 tablet (81 mg total) by mouth every evening Active atovaquone (MEPRON) suspension 750 mg/5 mLIndications:Oth er (complete free text reason below),Prevention for pneumonia Take 5 mL (750 mg total) by mouth every evening 01/09/20 21 Active azithromycin (ZITHROMAX) 500 mg tabletIndications :Mycobacteriosis Take 1 tablet (500 mg total) by mouth every evening Active Breztri Aerosphere 160-9-4.8 mcg/actuation HFA aerosol inhalerIndication s:Bronchospasm Prevention with COPD Inhale 2 puffs 2 (two) times a day Active cholecalciferol (VITAMIN D-3) 2000 unit tabletIndications :Vitamin D Deficiency Take 1 tablet (2,000 Units total) by mouth daily Active citalopram (CeleXA) 40 mg tabletIndications :major depressive disorder Take 1 tablet (40 mg total) by mouth every morning 04/13/19 24 Active cyanocobalamin (Vitamin B-12) 2,500 mcg tablet, sublingualIndicat ions:Prevention of Vitamin B12 Deficiency Take 1 tablet (2,500 mcg total) by mouth every evening Active cyclobenzaprine (FLEXERIL) 5 mg tabletIndications :Muscle Spasm Take 1 tablet (5 mg total) by mouth 3 (three) times a day as needed for muscle spasms Active ezetimibe (ZETIA) 10 mg tabletIndications :hypercholesterol emia Take 1 tablet (10 mg total) by mouth nightly 04/13/19 24 Active ethambutoL (MYAMBUTOL) 400 mg tabletIndications :Mycobacteriosis Take 2.5 tablets (1,000 mg total) by mouth every evening Active prasugreL (EFFIENT) tabletIndications :Myocardial Reinfarction Prevention Take 1 tablet (10 mg total) by mouth every evening Active rifAMPin (RIFADIN) 300 mg capsuleIndication s:Mycobacteriosis Take 2 capsules (600 mg total) by mouth parish nurse before breakfast Active temazepam (RESTORIL) 30 mg capsuleIndication s:Insomnia Take 1 capsule (30 mg total) by mouth nightly as needed for sleep Active varenicline tartrate (CHANTIX PREMA) 0.5 mg (11)- 1 mg (42) tabletIndications :Smoking Cessation Take 1 tablet by mouth parish nurse before breakfast 02/05/20 23 Active lisinopriL (PRINIVIL,ZESTRIL ) 20 mg tablet Take 1 tablet (20 mg total) by mouth 2 (two) times a day 04/15/19 24 Active metoprolol XL (TOPROL-XL) 50 mg extended release tablet Take 1 tablet (50 mg total) by mouth daily 30 tablet 11 04/15/19 24 Active oxyCODONE-acetami nophen (PERCOCET) 5-325 mg per tabletIndications :Pain Take 1 tablet by mouth every 4 (four) hours as needed for pain 04/24/19 24 Active predniSONE (DELTASONE) 20 mg tablet Take 1 tablet (20 mg) by mouth daily 08/31/19 24 Active brexpiprazole (REXULTI) 2 mg tablet Take 1 tablet (2 mg total) by mouth daily Active gabapentin (NEURONTIN) 800 mg tablet Take 0.5 tablets (400 mg total) by mouth 3 (three) times a day Active ketoconazole (NIZORAL) 2 % shampoo Apply topically once a week 10/27/19 24 Active Actemra 162 mg/0.9 mL syringe Inject 162mg (0.9ml) UNDER THE SKIN EVERY SEVEN DAYS 11/10/19 24 Active amoxicillin-clavu lanate (AUGMENTIN) 500-125 mg per tablet Take 1 tablet by mouth 2 (two) times a day 09/20/19 25 Active calcium carbonate-vit D3-min 600 mg-10 mcg (400 unit) tablet Take 1 tablet by mouth Active levocetirizine (XYZAL) 5 mg tablet Take 1 tablet (5 mg total) by mouth daily 07/14/19 25 Active metoprolol tartrate (LOPRESSOR) 25 mg immediate release tablet Take 1 tablet (25 mg total) by mouth 2 (two) times a day 07/13/19 25 Active sodium bicarbonate 650 mg tablet Take 1 tablet (650 mg total) by mouth in the morning and 1 tablet (650 mg total) in the evening. Active Lokelma 10 gram packet 09/20/19 25 Active Stiolto Respimat 2.5-2.5 mcg/actuation inhaler INHALE 2 PUFFS BY MOUTH ONCE DAILY 09/17/19 25 Active Active Problems Patient Care Coordination No te Formatting of this note migh t be different from the original. 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 Patient has a history of mycobacterium avium intracellular infection. He was referred to the clinic by Dr. Pat Edwards. He has a past medical history significant for COPD, diabetes, myocardial infarction, hypertension, kidney disease, liver disease, and lupus. He is a former 1-1/2 pack per day smoker times 20 years who quit in April 2023. He is scheduled for an updated CT of the chest prior to his appointment today. He underwent a CT of the chest without contrast on 09/15/2024 at [facility] which reveals: There is a large cavitary mass lying in the left lung apex that measures about 10 cm in diameter. The cavity demonstrates a thick irregular, nodular capsule in his filled with air. There are numerous nodules scattered throughout much of the left lung. These nodules are small with the largest measuring 2 cm in diameter tear within the left lower lobe. Both lungs demonstrate diffuse centrilobular and paraseptal emphysematous changes. Left-sided nodular lung disease has worsened significantly since 11/20/2023. Most likely indicates worsening SAMIRA infection. He underwent a CT of the chest without contrast on 06/03/2024 at [facility] which reveals the following: There is an 8.4 cm cavitary lesion in the left upper lobe with a thick irregular wall. There are multiple adjacent small nodules. There are multiple small nodules in the left lower lobe. The findings are probably neoplastic in origin. An infectious etiology is possible but felt to be less likely. Severe bullous emphysematous change. He underwent a CT of the chest on 11/17/2023 at [facility] which reveals an 8.5 x 5.5 cm thick-walled cavitary left upper lobe increased in size from previous exam consistent with history of mycobacterium infection. COPD with upper lobe emphysematous changes and bronchiectasis, stable. He underwent a CT of the chest, abdomen, and pelvis on 09/24/2023 at [facility] which reveals: New left upper lobe cavitary lesion with additional tree-in-bud nodularity in the left upper and right upper lobe likely represents cavitary mycobacterial [...] here for further surgical evaluation and discussion. Problem Noted Date Diagnosed Date Abnormal gait 12/05/2024 Alpha galactosidase deficiency 12/05/2024 Benign essential hypertensio n with target blood pressure below 140/90 12/05/2024 BPH (benign prostatic hyperplasia) 12/05/2024 Carotid stenosis 12/05/2024 COPD (chronic obstructive pulmonary disease) Cyst of brain 12/05/2024 Depression 12/05/2024 Diabetic neuropathy 12/05/2024 Dyslipidemia 12/05/2024 Elevated platelet count 12/05/2024 Prolactin increased 12/05/2024 Facet arthropathy, thoracic 12/05/2024 Hyperkalemia 12/05/2024 Insomnia 12/05/2024 Iron deficiency anemia 12/05/2024 Lupus erythematosus 12/05/2024 Rheumatoid arthritis 12/05/2024 Nodule of right lung 12/05/2024 Orthostatic hypotension 12/05/2024 Polycystic liver with compressive symptoms 12/05 Porokeratosis 12/05/2024 Positive ANASTASIA (antinuclear antibody) 12/05/2024 Plaque psoriasis 12/05/2024 Psoriasis 12/05/2024 Psoriatic arthritis 12/05/2024 Seronegative rheumatoid arthritis of both hands 12/05/2024 SIADH (syndrome of inappropriate ADH production) 12/05/2024 Status post angioplasty with stent 12/05/2024 Overview (12/05/2024): Dr Kay 2014 Vertebral artery occlusion, left 10/25/2024 Acquired spondylolisthesis 09/21/2024 Anxiety disorder 09/21/2024 Cervical radiculopathy 09/21/2024 Chronic pain 09/21/2024 Muscle pain 09/21/2024 Lumbosacral spondylosis without myelopathy 09/21 Sacroiliitis, not elsewhere classified Vertebrogenic low back pain 09/21/2024 CKD (chronic kidney disease) stage 4, GFR 15-29 ml/min 09/24/2023 Preoperative cardiovascular examination 09/13/19 24 Overview (09/13/2023): [facility] Dec 2014 with PCI to proximal RCA, normal LVEDP [facility] Dec 2020 Patent RCA stent, Mod Circumflex and OM disease and mild diffuse otherwise TTE 12/29/2020: EF 58%, no rwma, mild MAC, TDS, slight improvement of EF from 704133 (50-55%) Coronary artery disease invo lving [place] coronary artery of [place] heart without angina pectoris 09/13/2023 Overview (09/13/2023): [facility] Dec 2014 with PCI to proximal RCA, normal LVEDP [facility] Dec 2020 Patent RCA stent, Mod Circumflex and OM disease and mild diffuse otherwise Enlarged prostate 09/11/2023 Benign prostatic hyperplasia with urinary freque ncy 08/25/2023 Acute non-recurrent maxillary sinusitis 07/22/19 Other headache syndrome 07/22/2023 Obstructive sleep apnea syndrome 05/06/2023 Polymyalgia rheumatica 04/15/2023 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 -He is currently on Rifampin, Ethambutol, Azithromycin and Inhaled Amikacin. -We will reach out to Dr. Edwards's office to get records, culture results, and imaging. -We reviewed recent imaging here -We will get a sputum sample today to get susceptibilities -We will get baseline labs today -We will ask Dr. Edwards to increase Ethambutol dose to 1200mg daily. -We will refer the patient to a new performing artist -We will reach out to the patient once we have outside information for a return appointment. - Discussed with patient the rational for treatment, culture results, risk of recurrent infection, signs/symptoms of recurrent infection, and to contact ID clinic with any questions or concerns. Lesion of liver 12/15/2022 Abdominal pain 12/04/2022 Diarrhea 12/04/2022 Vitamin D deficiency 04/01/2022 Stage 4 chronic kidney disease 01/17/2021 Secondary hyperparathyroidism 10/04/2020 Stage 3b chronic kidney disease 10/03/2020 Hypertension 10/03/2020 Polycystic kidney disease 10/03/2020 At low risk for open-angle glaucoma in both eyes 09/27/2020 Assessment & Plan (09/27/2020 11:14 AM CDT): Patient's intraocular pressure (IOP) mid teens both eyes (OU) Patient notes history of procedure for pressure, but is unsure of which. No evidence or trab or tube or iStent. The ONH is large right eye (OD) and left eye (OS) with moderate cupping. Educated on findings and recommended establishing care, will schedule OCT ONH, Gil visual field (HVF) 24-2, and intraocular pressure (IOP) check in ~3- 4mo, sooner prn High risk medication use 09/27/2020 Assessment & Plan (09/27/2020 11:16 AM CDT): Patient is about to start HCQ therapy. There are no abnormal findings of the macula right eye (OD) or left eye (OS). There are not central visual field defects right eye (OD) or left eye (OS). Educated on importance of monitoring possible ocular changes if medication is indeed initiated, patient understands. Pseudophakia of both eyes 09/27/2020 Assessment & Plan (09/27/2020 11:16 AM CDT): Central, clear, stable both eyes (OU). Monitor. Diabetes mellitus without complication Assessment & Plan (09/27/2020 11:18 AM CDT): No diabetic ophthalmic changes noted right eye (OD) or left eye (OS). Educated on importance of blood sugar control. Will monitor. Cigarette nicotine dependence, uncomplicated Tobacco dependence syndrome 06/08/2015 Status post right inguinal hernia repair 015 Mixed hypercholesterolemia and hypertriglyceride lizeth 06/04/2011 Overview (09/21/2024): Cholesterol medication (he does not recall which) was prescribed at one time in the past, but he stopped taking it due to leg pain. Cholesterol medication (he does not recall which) was prescribed at one time in the past, but he stopped taking it due to leg pain. PAD (peripheral artery disease) 06/04/2011 Overview (09/21/2024): Diagnosed in 2004 with ultrasound of lower extremities Diagnosed in 2004 with ultrasound of lower extremities Encounters Date Type Department Care Team Description 12/05/2024 1:00 PM CDT Office Visit [facility] [address] [place] [address] [address] [place] [address] Champ Danielle MD Chronic obstructive pulmonary disease with emphysema, unspecified emphysema type (Primary Dx) 12/05/2024 12:23 PM CDT Hospital Encounter [facility] [address] [place] [address] 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) 12/05/2024 Telephone [facility] [address] [facility] [address] [place] [address] Jack Nicholas, KHURRAM 12/02/2024 10:48 AM CDT - 12/02/2024 11:59 PM CDT Hospital Encounter [facility] [address] [place] [address] Arrived Discharge Disposition: Discharge to home or self care 12/02/2024 10:43 AM CDT - 12/02/2024 11:59 PM CDT Hospital Encounter [facility] ([facility]) [address] [place] [address] Arrived Discharge Disposition: Discharge to home or self care 12/02/2024 Telephone [facility] [address] [place] [address] [address] [place] [address] Jack Nicholas CMA 12/02/2024 Telephone [facility] [address] [place] [address] [address] [place] [address] Jack Nicholas, KHURRAM 12/02/2024 Telephone [facility] [address] [place] [address] [address] [place] [address] Jack Nicholas, KHURRAM 12/01/2024 11:29 AM CDT - 12/01/2024 11:59 PM CDT Hospital Encounter [facility] ([facility]) [address] [place] [address] Discharge Disposition: Discharge to home or self care 12/01/2024 11:28 AM CDT - 12/01/2024 11:59 PM CDT Hospital Encounter [facility]) [address] [place] [address] Discharge Disposition: Discharge to home or self care 12/01/2024 Telephone [facility] [address] [facility] [address] [place] [address] Jack Nicholas, KHURRAM 12/01/2024 Telephone [facility] Scheduling [address] [place] [address] So Cottrell MD Scheduling Appointments 12/01/2024 Telephone [facility] [address] [place] [address] [address] [place] [address] Jack Nicholas, DEBRIDGING MACHINE OPERATOR 11/30/2024 Orders Only [facility] [address] [place] [address] Champ Danielle MD 11/30/2024 Orders Only [facility] [place] [address] Champ Danielle MD 11/30/2024 Orders Only [facility] [address] [place] [address] [address] [place] [address] Shahana Yoder, DELPHI DEVELOPER 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) (Primary Dx) 11/30/2024 Telephone [facility] [address] [place] [address] [address] [place] [address] Jack Nicholas, KHURRAM 11/30/2024 Telephone [facility] [address] [place] [address] [address] [place] [address] Jack Nicholas, KHURRAM 11/30/2024 Orders Only [facility] [address] [place] [address] [address] [place] [address] Shahana Yoder, DELPHI DEVELOPER 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) (Primary Dx) 11/30/2024 Telephone [facility] [address] [place] [address] [address] [place] [address] Jack Nicholas, KHURRAM 11/28/2024 Telephone [facility] [address] [place] [address] [address] [place] [address] Jack Nicholas CMA 10/21/2024 4:00 PM CDT Office Visit [facility] Medicine Stroke [address] [facility] [address] [place] [address] Leana Parra MD Vertebral artery occlusion, left (Primary Dx); Hypertension, unspecified type; Mixed hypercholesterolemia and hypertriglyceridemia; Cervicogenic headache; Subjective cognitive impairment 10/04/2024 10:25 AM CDT - 10/04/2024 11:59 PM CDT Hospital Encounter [facility]) [address] [place] [address] Discharge Disposition: Discharge to home or self care 09/26/2024 [facility]phone [facility] [address] [place] [address] Walt Hogan MD 09/21/2024 12:26 PM CDT - 09/21/2024 11:59 PM CDT Hospital Encounter [facility] ([facility]) [address] [place] [address] Discharge Disposition: Discharge to home or self care 09/21/2024 10:45 AM CDT Office Visit [facility] Medicine Neurosurgery [address] [facility] Floor 1, [address] [place] [address] Lupe Samuels PA Occlusion and stenosis of left vertebral artery (Primary Dx); Hypertension, unspecified type; Coronary artery disease involving [place] coronary artery of [place] heart without angina pectoris; Mixed hypercholesterolemia and hypertriglyceridemia; Cigarette nicotine dependence, uncomplicated 09/09/2024 [facility]phone [facility] [place] [address] Mica Murray 09/09/2024 Telephone [facility] Medicine Nephrology [address] [facility] 5th [place] [address] [place] [address] Lauren Ibrahim RN 09/09/2024 Orders Only [facility] Medicine Nephrology [address] [facility] 5th [place] [address] [place] [address] Chano Parks MD Hypertension, unspecified type (Primary Dx) from Last 3 Months Immunizations Immunization Administration Dates Next Due Influenza, Quadrivalent, Spl it, Preservative Free, Intramuscular 03/22/2021 Pfizer SARS-CoV-2 Monovalent Vaccination (12+ Yrs) PURPLE 10/01/2020 Pneumococcal Conjugate Pcv20 05/20/2022 Tdap 12/25/2017,07/22/2016 ZOSTER Recombinant 12/03/2021,08/29/2021, 019 Surgical History Surgery Date Site/Laterality Comments CORONARY STENT PLACEMENT 02/16/2014 - 02/15/2015 INSERTION / PLACEMENT / REVI SAURABH NEUROSTIMULATOR 02/24/2023 INSPIRE Device for Sleep Apnea ESOPHAGOGASTRODUODENOSCOPY 11/29/2015 INGUINAL HERNIA REPAIR 12/19/2014 Medical History Medical History Date Comments Liver disease Kidney disease Lupus Diabetes Hypertension COPD (chronic obstructive pulmonary disease) Heart attack (HCC) Motion sickness Family History Medical History Relation Name Comments Lupus Daughter 1 Lupus Daughter 2 Anesthesia problems Neg Hx Relation Name Status Comments Daughter 1 Alive Daughter 2 Alive Father Mother Alive Social History Tobacco Use Types Packs/Day Years Used Date Smoking Tobacco: Some Days Cigarettes 1.5 20 Started: 05/12/2003; Last attempted to quit: 05/12/2023 Smokeless Tobacco: Never Tobacco Cessation:Ready to Q uit: Not Asked; Counseling Given: Not Answered [facility] Utilities Answer Date Recorded In the past 12 months has e [employer], gas, oil, or water [employer] threatened to shut off services in your [...] often do you attend chur ch or amish services? Never 10/09/2023 Do you belong to [...] you homeless or living in a senior care (including now)? No 10/09/2023 AUDIT-C Answer Date [...] on file Sexual Orientation Not on file Obstetrics History Last Filed Vital Signs Vital Sign Reading [...] Mass Index 24.88 12/05/2024 1:04 PM CDT Plan of Treatment Health Maintenance Due Date Last Done Comments Albumin Creatinine Ratio, Urine 1966 Colon Cancer Screening-Colonoscopy 1966 Depression Screening 1966 Foot Exam 1966 Regular Well Visit/Exam 18-64 1984 Lung Cancer Screening 2016 Covid-19 Vaccine (3 - Pfizer risk series) 02/05/2021 01/08/2021, 10/01/2020 Dilated Eye Exam 09/27/2021 09/27/2020 Hemoglobin A1C 03/26/2024 09/24/2023 Lipid Panel 09/23/2024 09/24/2023 eGFR 09/23/2024 09/24/2023, 09/17, 08/22/2020 Influenza Vaccine (#1) 2024 03/22/2021 Prostate Cancer Screening-PSA 09/23/2025 09/24/2023 DTaP/Tdap/Td Vaccine (3 - Td or Tdap) 12/26/202710/2017, 07/22/2016 Zoster Vaccine Completed 12/03/2021, 08/16, 09/21/2018 Pneumococcal vaccine <65 Completed 05/20/2022 Hepatitis B Screening Completed 09/24/2023 Hepatitis C Screening Completed 09/24/2023, 021 Medical Devices Implanted Type Area Stable Hand Device Identifier Shelf Expiration Date Model / Serial / Lot Neurostimulator-I nspire Device-02/24/2023 Implanted: 024 by Brandon Ramirez MD (Quantity not on file) Neurostimulator Chest [employer] 3028 / / Neurostimulator Inspire Leads-02/24/2023 Implanted:Qty: 2 on 02/24/2023 by Brandon Ramirez MD Neurostimulator Chest [employer] 4340 & 4063 / / Cardiac Stent Implanted:Qty: 1 Stent Heart Bilateral Illiac Stents Bard Lifetream 8mm X 37mm Implanted:Qty: 2 Stent Bilater al: Leg Bard Peripheral Vascular [id number] / / Procedures Procedure Name Priority Date/Time Associated Diagnosis Comments CT CHEST WO CONTRAST Schedule Routine, Read Routine (OP Routine) 12/05/2024 12:35 PM CDT 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) CT BODY OUTSIDE REFERENCE Routine 12/02/2024 10:[address] BODY OUTSIDE REFERENCE Routine 12/02/2024 10:43 AM CDT XR TRANSFER OF OUTSIDE FILMS Routine 12/01/2024 11:[address] BODY OUTSIDE REFERENCE Routine 12/01/2024 11:[address] OUTSIDE REFERENCE Routine 10/04/2024 10:25 AM CDT NEURO MR OUTSIDE REFERENCE Routine 09/21/2024 12:26 PM CDT HEPATITIS C ANTIBODY Routine 09/24/2023 10:14 AM CDT CKD (chronic kidney disease) stage 4, GFR 15-29 ml/min (HCC) EGFR Routine 09/24/2023 10:14 AM CDT CKD (chronic kidney disease) stage 4, GFR 15-29 ml/min (HCC) HEMOGLOBIN A1C Routine 09/24/2023 10:14 AM CDT CKD (chronic kidney disease) stage 4, GFR 15-29 ml/min (HCC) LIPID PANEL Routine 09/24/2023 10:14 AM CDT CKD (chronic kidney disease) stage 4, GFR 15-29 ml/min (HCC) PSA SCREEN Routine 09/24/2023 10:14 AM CDT CKD (chronic kidney disease) stage 4, GFR 15-29 ml/min (HCC) from Last 3 Months or Most Recently Relevant to Health Maintenance Results * CT chest without contrast (12/05/2024 [...] Roland Proctor M.D. BS: BS Report ID: [id number] Reading Location: [id number] Procedure Note Roland Proctor MD - 12/05/2024 [...] in size and number. There are multiple [id number] opacities in the right upper lobe. Scattered [...] Roland Proctor M.D. BS: BS Report ID: [id number] Reading Location: [place] [address] Shahana Yoder NP IMG CT PROCEDURES Final Re sult * CT Body Outside Reference (12/02/2024 10:48 AM CDT) Impressions [facility] - 12/02/2024 10:48 AM CDT These images are for Reference purposes only and have not been reviewed by [facility]iology. There will be no report generated by a [facility] Radiologist. Narrative [facility] - 12/02/2024 10:48 AM CDT EXAMINATION: Images For Reference Purposes Only Champ Danielle MD IMG CT PROCEDURES Final Resul t [facility] * CT Body Outside Reference (12/02/2024 10:43 AM CDT) Impressions [facility] - 12/02/2024 10:43 AM CDT These images are for Reference purposes only and have not been reviewed by [facility]iology. There will be no report generated by a [facility] Radiologist. Narrative [facility] - 12/02/2024 10:43 AM CDT EXAMINATION: Images For Reference Purposes Only Champ Danielle MD IMG CT PROCEDURES Final Resul t Performing Organization Address [facility] de Phone Number [facility] * XR Outside Reference (12/01/2024 11:29 AM CDT) Impressions [facility] - 12/01/2024 11:29 AM CDT These images are for Reference purposes only and have not been reviewed by [facility]iology. There will be no report generated by a [facility] Radiologist. Narrative [facility] - 12/01/2024 11:29 AM CDT EXAMINATION: Images For Reference Purposes Only Champ Danielle MD IMG XR PROCEDURES Final Resul t Performing Organization Address [facility] de Phone Number [facility] * CT Body Outside Reference (12/01/2024 11:28 AM CDT) Impressions [facility] - 12/01/2024 11:28 AM CDT These images are for Reference purposes only and have not been reviewed by [facility]iology. There will be no report generated by a [facility] Radiologist. Narrative [facility] - 12/01/2024 11:28 AM CDT EXAMINATION: Images For Reference Purposes Only Champ Danielle MD IMG CT PROCEDURES Final Resul t Performing Organization Address [facility] de Phone Number [facility] * Neuro CT Outside Reference (10/04/2024 10:25 AM CDT) Impressions [facility] - 10/04/2024 10:25 AM CDT These images are for Reference purposes only and have not been reviewed by [facility] Radiology. There will be no report generated by a [facility] Radiologist. Narrative [facility] - 10/04/2024 10:25 AM CDT EXAMINATION: Images For Reference Purposes Only us Marko Ball MD IMG CT PROCEDURES Final Re sult Performing Organization Address City/[facility]/ZIP Co de Phone Number [facility] * Neuro MR Outside Reference (09/21/2024 12:26 PM CDT) Impressions [facility] - 09/21/2024 12:26 PM CDT These images are for Reference purposes only and have not been reviewed by [facility] Radiology. There will be no report generated by a [facility] Radiologist. Narrative [facility] - 09/21/2024 12:26 PM CDT EXAMINATION: Images For Reference Purposes Only Lupe CHERRY IMG MRI PROCEDURES Staci l Result Performing Organization Address [facility] Co de Phone Number [facility] * (ABNORMAL) eGFR (09/24/2023 10:14 AM CDT) eGFR 40(L) >=60 mL/min/1. 73 m2 Comment: Interpretive Data Reference Interval Normal >/= 90 mL/min/1.73m2 Mildly decreased* 60 - 89 mL/min/1.73m2 Mildly to moderately decreased 45 - 59 mL/min/1.73m2 Moderately to severely decreased 30 - 44 mL/min/1.73m2 Severely decreased 15 - 29 mL/min/1.73m2 Kidney Failure < 15 mL/min/1.73m2 *Relative to young adult level Estimated glomerular filtration rate is determined by the 2020 CKD-EPI equation recommended by the National Kidney Foundation (A Unifying Approach to GFR Estimation: Recommendations of the NKF-ASK Task Force on Reassessing the Inclusion of Race in Diagnosing Kidney Disease, JASN 202). The CKD-EPI equation should not be used for patients with unstable renal function and has not been validated in children and those over 70. Current interpretive data was last reviewed 2020. Blood 09/24/2023 10:1 4 AM CDT 09/24/2023 10:42 AM CDT Julia Fritz MD LAB BLOOD ORDERABL ES Final Result Performing Organization Address City/[facility] Co de Phone Number [facility] Department [place] [address] * (ABNORMAL) PSA screen (09/24/2023 10:14 AM CDT) PSA-Total 8.86(H) <=3.90 ng/mL Comment: Interpretive Data AGE SEX REFERENCE INTERVAL 0 minutes-150 years Female None 0 minutes-49 years Male None 50-59 years Male 0-3.90 60-69 years Male 0-5.40 70-79 years Male 0-6.20 80-150 years Male 0-6.20 The Yohannes PSA Total assay procedure was used. Results from different manufacturers or methods may not be comparable. Serial testing should be performed using the same method. Current interpretive data last revised 21. Blood 09/24/2023 10:1 4 AM CDT 09/24/2023 10:39 AM CDT Narrative [facility] - 09/24/2023 11:25 AM CDT This lab is being obtained as part of a Kidney transplant evaluation, is time sensitive, and should only be drawn during the evaluation visit at [facility] Lab. Julia Fritz MD LAB BLOOD ORDERABL ES Final Result Performing Organization Address [facility] Co de Phone Number [facility] Department [place] [address] * Hepatitis C antibody Blood (09/24/2023 10:14 AM CDT) Hep C Ab Nonreactive Nonreactive Comment:Antibodies to HCV no t detected. Does NOT exclude the possibility of recent exposure to HCV. Current interpretive data was last revised on 21 Blood 09/24/2023 10:1 4 AM CDT 09/24/2023 10:39 AM CDT Narrative [facility] - 09/24/2023 11:45 AM CDT This lab is being obtained as part of a Kidney transplant evaluation, is time sensitive, and should only be drawn during the evaluation visit at [address] Julia Fritz MD LAB MICROBIOLOGY - GENERAL ORDERABLES Final Result Performing Organization Address [facility] de Phone Number [facility] [place] [address] * Hemoglobin A1c (09/24/2023 10:14 AM CDT) Pathologist [facility] Hgb A1C 5.2 4.0 - 5.6 % Estimated Average Glucose 103 mg/dL [facility] Comment: The ADA recommends reporting an estimated Average Glucose (eAG) with all Hemoglobin A1c results using the equation derived from a study of 507 normal and diabetic adults. Minority populations were underrepresented and children were not included. (Diabetes Care 2020; 43(S1): S66-S76). The eAG is not equivalent to a fasting glucose. Blood 09/24/2023 10:1 4 AM CDT 09/24/2023 10:39 AM CDT [facility] 09/24/2023 11:09 AM CDT This lab is being obtained as part of a Kidney transplant evaluation, is time sensitive, and should only be drawn during the evaluation visit at [address] Julia Fritz MD LAB BLOOD ORDERABL ES Final Result Performing Organization Address [facility] de Phone Number [facility] Department [place] [address] * (ABNORMAL) Lipid panel (09/24/2023 10:14 AM CDT) Cholesterol 201(H) 30 - 199 mg/dL Comment: Interpretive Data Ages < or = 19 years Acceptable: <170 mg/dL Borderline high: 170-199 mg/dL High: >or= 200 mg/dL Ages > or = 20 years Desirable: <200 mg/dL Borderline high: 200-239 mg/dL High: >or= 240 mg/dL Literature References: 1. Expert Panel on Integrated Guidelines for Cardiovascular Health and Risk Reduction in Children and Adolescents. Pediatrics 2011;128:S213 2. NCEP Expert Panel. Circulation 2004;110:227 Current Interpretive Data was last revised on 2017. Triglycerides 124 <=149 mg/dL [facility] Comment: Interpretive Data Ages < or = 9 years Acceptable: <75 mg/dL Borderline high: 75-99 mg/dL High: >or= 100 mg/dL Ages 10 to 20 years Acceptable: <90 mg/dL Borderline high: 90-129 mg/dL High: >or= 130 mg/dL Ages > or = 20 years Desirable: <150 mg/dL Borderline high: 150-199 mg/dL High: 200-499 mg/dL Very high: >or= 499 mg/dL Literature References: 1. Expert Panel on Integrated Guidelines for Cardiovascular Health and Risk Reduction in Children and Adolescents. Pediatrics 2011;128:S213 2. NCEP Expert Panel. Circulation 2004;110:227 Current Interpretive Data was last revised on 2017. HDL 64 >=40 mg/dL [facility] Comment: Interpretive Data Ages < or = 19 years Acceptable: >45 mg/dL Borderline low: 40-45 mg/dL Low: <40 mg/dL Ages > or = 20 years Desirable: >or= 60 mg/dL Low: <40 mg/dL Literature References: 1. Expert Panel on Integrated Guidelines for Cardiovascular Health and Risk Reduction in Children and Adolescents. Pediatrics 2011;128:S213 2. NCEP Expert Panel. Circulation 2004;110:227 Current Interpretive Data was last revised on 2017. LDL, calculated 112 <=129 mg/dL [facility] Comment: Interpretive Data Ages < or = 19 years Acceptable: <110 mg/dL Borderline high: 110-129 mg/dL High: >or= 130 mg/dL Ages > or = 20 years Optimal: <100 mg/dL Near optimal: 100-129 mg/dL Borderline high: 130-159 mg/dL High: >160 mg/dL Literature References: 1. Expert Panel on Integrated Guidelines for Cardiovascular Health and Risk Reduction in Children and Adolescents. Pediatrics 2011;128:S213 2. NCEP Expert Panel. Circulation 2004;110:227 Current Interpretive Data was last revised on 2017. Non-HDL Cholesterol 137 mg/dL [facility] Comment: Interpretive Data Ages < or = 19 years Acceptable: <120 mg/dL Borderline high: 120-144 mg/dL High: >145 mg/dL Ages > or = 20 years When triglycerides are >200 mg/dL, Non-HDL cholesterol is a secondary target of therapy with treatment goals that are 30 mg/dL greater than the LDL cholesterol target. Literature References: 1. Expert Panel on Integrated Guidelines for Cardiovascular Health and Risk Reduction in Children and Adolescents. Pediatrics 2011;128:S213 2. NCEP Expert Panel. Circulation 2004;110:227 Current Interpretive Data was last revised on 2017. Chol/HDL ratio 3 [facility] Blood 09/24/2023 10:1 4 AM CDT 09/24/2023 10:39 AM CDT Narrative [facility] - 09/24/2023 11:25 AM CDT This lab is being obtained as part of a Kidney transplant evaluation, is time sensitive, and should only be drawn during the evaluation visit at [facility] Lab. us Julia Fritz MD LAB BLOOD ORDERABL ES Final Result [facility] Department [place] [address] from Last 3 Months or Most Recently Relevant to Health Maintenance Insurance [facility] DUAL COMPLETE [id number] [facility] DUAL COMPLETE [id number] IN [employer] DIV[employer] TRANSPLANT [employer] MED[place] R[place] [employer] TRANS[employer] MED[employer]ARE RISK [place] [employer] DIVISION Care Teams Plans Examiner Relationship Specialty Start Date End Date Lorie Mccormack NP [address] [place] [address] PCP - General Family Medicine 09/11/23 Elis Keller, RICHARD [address] [facility] [address] [place], [place] [id number] Cigar Packing Examiner 07/23/23 Chano Parks MD [address] [facility] [address] [place], [place] [id number] Referring Physician Transplant 07/23/23 Sarah Kay MD [address] [place] [address] Referring Physician Cardiovascular Disease 07/24/23 Pat Edwards MD [address] [facility] DEPT [place] [address] Internal Medicine 07/24/23 Datar, Jose Guadalupe Sosa MD [address] [place] [address] Internal Medicine 07/24/23 Gilles Estrella MD [address] [place] [address] Office Machine Service Supervisor Transplant 09/03/23 Laverne Logan, RN [address] [address] Heart Failure Coordinator Cigar Packing Examiner 09/03/23 Henrietta Schneider MD [address] [place] [address] Nephrology 09/29/23 Acacia Wells NP [address] [place] [phone] 09/29/23 Delmy Hagan Primary Production Tester 11/03/24
--- OUTSIDE RECORDS SUMMARY | 2024-12-05 20:41 | XMS_ITS | Encounter Summary ---
Author Organization [facility] Address [address] [place] [address] Phone Care Team Providers Care Bathhouse Attendant Name Role Phone Lorie Mccormack Primary Care Provider [phone] Encounter Details Date Type Department Care Team (Late Contact Info) Description 11/22/2020 Orders Only [facility] [address] [place] [address] Abnormal result of kidney function study Social History Tobacco Use Types Packs/Day Years Used Date Smoking Tobacco: Every Day Alcohol Use Standard Drinks/Week Comments No 0 [...] Description 12/06/2024 3:00 PM CDT Office Visit [facility] [address] [place] [address] Acacia Wells NP [address] [place] [address] documented as of this encounter Visit Diagnoses Diagnosis Abnormal result of kidney function study documented in this encounter Care Teams Bathhouse Attendant Relationship Specialty Start Date End Date Lorie Mccormack FNP [id number] [place] [address] PCP - General Family Medicine 12/01/24 documented as of this encounter
--- OUTSIDE RECORDS SUMMARY | 2024-12-05 20:41 | XMS_ITS | Encounter Summary ---
Author Organization [facility] Address [address] [place] [address] Phone Care Team Providers Care Bakery Helper Name Role Phone Elis Keller RN Unavailable Chano Parks MD Unavailable [phone] Sarah Kay MD Unavailable Pat Edwards MD Unavailable [phone] Datar, Jose Guadalupe Sosa MD Unavailable Gilles Estrella MD Unavailable [phone] Laverne Logan RN Unavailable Lorie Mccormack VOLUNTEER MANAGER Primary Care Provider + Henrietta Schneider MD Unavailable Acacia Wells NP Unavailable Delmy Hagan Unavailable Unavailable Encounter Details Date Type Department Care Team (Late st Contact Info) Description 12/15/2023 Orders Only [facility] Scanning, Provider Social History Tobacco Use Types Packs/Day Years Used Date Smoking Tobacco: Former Cigarettes 1.5 20 0 05/12/2003 - 05/12/2023 Smokeless Tobacco: Never [facility] Utilities Answer Date Recorded In the past 12 months has [employer] electric, gas, oil, or water company threatened [...] often do you attend chur ch or anglican services? Never 10/09/2023 Do you belong to any clubs o r organizations such as mormonism groups, unions, fraternal or athletic groups, or [...] any time in the past 12 m [facility], were you homeless or living in a mcc (including now)? No 10/09/2023 Personal Safety Answer [...] Date/Time Associated Diagnosis Comments SCAN - LABS 12/15/2023 documented in this encounter Results * SCAN - LABS (12/15/2023) us Provider Scanning Final Result documented in this encounter Visit Diagnoses Not on filedocumented in this encounter Additional Health Concerns Infection Onset Date Last Indicated Resolved Time Tuberculosis (rule out) Comment:02/11/2024 IP Review: AFB identified as nonMTB organism. Umm Olsen RN Sputum AFB stain + 12/29/2023 12/29/2023 02/11/2024 10:50 AM STRUCTURAL STEEL ENGINEER documented as of this encounter Care Teams Bakery Helper Relationship Specialty Start Date End Date Lorie Mccormack NP [address] [place] [address] PCP - General Family Medicine 09/11/23 Elis Keller, RICHARD [address] [facility] [address] [place] [address] Smelter Operator 07/23/23 Chano Parks MD [address] [facility] [address] [place] [address] Referring Physician Transplant 07/23/23 Sarah Kya MD [address] [place] [address] Referring Physician Cardiovascular Disease 07/24/23 Pat Edwards MD [address] [place] [address] [place] [address] Internal Medicine 07/24/23 Datar, Jose Guadalupe Sosa MD [address] [place] [address] Internal Medicine 07/24/23 Gilles Estrella MD [address] [place] [address] Field Sales Executive Transplant 09/03/23 Laverne Logan, RICHARD [address] [address] Heart Failure Coordinator Smelter Operator 09/03/23 Henrietta Schneider MD [address] [place] [address] Nephrology 09/29/23 Acacia Wells NP [address] [place] [phone] 09/29/23 Delmy Hagan Primary Box Car Loader 11/03/24 documented as of this encounter
--- OUTSIDE RECORDS SUMMARY | 2024-12-05 20:41 | XMS_ITS | Encounter Summary ---
Author Organization [facility] Address [address] [place] [address] Phone Care Team Providers Care Dope Heater Name Role Phone Elis Keller RN Unavailable [phone] Chano Parks MD Unavailable [phone] Sarah Kay MD Unavailable Pat Edwards MD Unavailable [phone] Datar, Jose Guadalupe Sosa MD Unavailable Gilles Estrella MD Unavailable Laverne Logan RN Unavailable Lorie Mccormack MATERIALS MANAGEMENT SUPERVISOR Primary Care Provider + Henrietta Schneider MD Unavailable Acacia Wells NP Unavailable Delmy Hagan Unavailable Unavailable Encounter Details Date Type Department Care Team (Latest Contact Info) Description 07/13/2024 Orders Only [facility] Scanning, Provider Social History Tobacco Use Types Packs/Day Years Used Date Smoking Tobacco: Former Cigarettes 1.5 20 0 05/12/2003 - 05/12/2023 Smokeless Tobacco: Never [facility] Utilities Answer Date Recorded In the past 12 months has [employer] electric, gas, oil, or water company threatened [...] any clubs o r organizations such as holiness groups, unions, fraternal or athletic groups, or [...] any time in the past [address] [facility], were you homeless or living in a correction (including now)? No 10/09/2023 Personal Safety Answer [...] Date/Time Associated Diagnosis Comments SCAN - LABS 07/13/2024 documented in this encounter Results * SCAN - LABS (07/13/2024) us Provider Scanning Final Result documented in this encounter Visit Diagnoses Not on filedocumented in this encounter Care Teams Dope Heater Relationship Specialty Start Date End Date Lorie Mccormack NP [address] [place] [address] PCP - General Family Medicine 09/11/23 Elis Keller, RN [address] [facility] [address] [place] [address] Data Report Analyst 07/23/23 Chano Parks MD [address] [facility] [address] [place] [address] Referring Physician Transplant 07/23/23 Sarah Kay MD [address] [place] [address] Referring Physician Cardiovascular Disease 07/24/23 Pat Edwards MD [address] [facility] [place] [address] Internal Medicine 07/24/23 Datar, Jose Guadalupe Sosa MD [address] [place] [address] Internal Medicine 07/24/23 Gilles Estrella MD [address] [place] [address] Fuel Cell Battery Technician Transplant 09/03/23 Laverne Logan, RN [address] [address] Heart Failure Coordinator Data Report Analyst 09/03/23 Henrietta Schneider MD [address] [address] Nephrology 09/29/23 Aaccia Wells NP [facility] [place] [id number] 09/29/23 Delmy Hagan Primary Data Programmer 11/03/24 documented as of this encounter
--- OUTSIDE RECORDS SUMMARY | 2024-12-05 20:41 | XMS_ITS | Clinical Summary ---
Author Organization [facility] Facility Address [address] [place] [id number] Care Team Providers Care Engineering Coordinator Name Role Phone Lorie Mccormack VAISHALI Primary Care Provider [phone] Allergies Active Allergy Reactions Criticality Noted Date Comments Alpha-Gal Diarrhea,GI intolera nce,Nausea And Vomiting Low 07/22/2023 Rosuvastatin Other (see comments) 12/25/2020 Sulfa Antibiotics Rash Low 12/25/2020 Wasp Venom Protein Anaphylaxis High 06/04/2011 Medications albuterol HFA (PROVENTIL HFA;VENTOLIN HFA) 108 (90 Base) MCG/ACT inhaler 2 puffs by Other route 4 (four) times a day Active budesonide (PULMICORT) 0.5 MG/2ML nebulizer solution Inhale 0.5 mg twice a day 10/25/19 21 Active hydroxychloroquin e (PLAQUENIL) 200 MG tablet Take by mouth 1 (one) time each day Active predniSONE (DELTASONE) 10 MG tablet Take 20 mg by mouth 1 (one) time each day Active atovaquone (MEPRON) 750 MG/5ML suspension Take by mouth 1 (one) time each day 01/09/20 21 Active Cholecalciferol (Vitamin D) 25 MCG (1000 UT) tablet Take by mouth 1 (one) time each day Active gabapentin (NEURONTIN) 600 MG tablet Take 800 mg by mouth in the morning and 800 mg in the evening and 800 mg before bedtime. 01/17/20 21 Active ethambutol (MYAMBUTOL) 400 MG tablet Take 1,000 mg by mouth 1 (one) time each day Active rifAMPin (RIFADIN) 300 MG capsule Take 600 mg by mouth 1 (one) time each day Active temazepam (RESTORIL) 15 MG capsule Take 15 mg by mouth at night if needed for sleep Active Arikayce 590 MG/8.4ML suspension 09/27/19 23 Active azithromycin (ZITHROMAX) 500 MG tablet 1 tab(s) orally once a day, as needed for infection Active lisinopril 20 MG tablet Take 20 mg by mouth 1 (one) time each day Active aspirin (ST RICHI) 81 MG EC tablet Take 81 mg by mouth 1 (one) time each day Active Breztri Aerosphere 160-9-4.8 MCG/ACT aerosol Inhale 2 puffs in the morning and 2 puffs in the evening. Active citalopram (CeleXA) 40 MG tablet Take 40 mg by mouth in the morning. 04/13/19 24 Active Cyanocobalamin [address] 1 tablet under the tongue 1 (one) time each day Active cyclobenzaprine (FLEXERIL) 5 MG tablet Take 5 mg by mouth 2 (two) times a day if needed Active ezetimibe (ZETIA) 10 MG tablet Take 10 mg by mouth in the morning. 04/13/19 24 Active oxyCODONE-acetami nophen (PERCOCET) 5-325 MG per tablet Take 1 tablet by mouth every 4 (four) hours if needed 04/24/19 24 Active triamcinolone (KENALOG) 0.1 % cream Apply topically 2 (two) times a day Active Otezla 30 MG tablet Take 1 tablet by mouth in the morning and 1 tablet in the evening. Active albuterol 1.25 MG/3ML nebulizer solution Take 1.25 mg by nebulization every 6 (six) hours if needed for wheezing Active Tocilizumab (Actemra ACTPen) 162 MG/0.9ML solution auto-injector Inject under the skin every 7 (seven) days Active Brexpiprazole 2 MG tablet Take 2 mg by mouth in the morning. Active ketoconazole (NIZORAL) 2 % shampoo Apply topically 1 (one) time per week 10/27/19 24 Active prasugrel (EFFIENT) 10 MG tablet Take 10 mg by mouth 1 (one) time each day in the evening Active atorvastatin (LIPITOR) 40 MG tablet Take 40 mg by mouth 1 (one) time each day 04/11/19 25 Active Calcium Carb-Cholecalcife rol 600-10 MG-MCG tablet Take 1 tablet by mouth in the morning and 1 tablet in the evening. Take with meals. Active clopidogrel (PLAVIX) 75 MG tablet Take 1 tablet by mouth 1 (one) time each day in the evening Active metoprolol tartrate 25 MG tablet Take 25 mg by mouth in the morning and 25 mg in the evening. 04/11/19 25 Active sulfamethoxazole- trimethoprim (BACTRIM,SEPTRA) 400-80 MG per tablet Take 1 tablet by mouth in the morning and 1 tablet in the evening. 04/14/19 25 Active sodium bicarbonate 650 MG tablet Take 1 tablet (650 mg total) by mouth in the morning and 1 tablet (650 mg total) in the evening. 60 tablet 5 06/23/19 25 Active pantoprazole (PROTONIX) 40 MG EC tablet Take 40 mg by mouth 1 (one) time each day 07/30/19 25 Active Sodium Zirconium Cyclosilicate 10 g packIndications:H yperkalemia Take 1 packet by mouth 3 (three) times a week 3 each 10/15/19 25 026 Active Active Problems Problem Noted Date Diagnosed Date Obstructive sleep apnea syndrome 05/06/2023 Long-term current use of drug therapy 05/06/2023 Pulmonary Mycobacterium avium complex infection 04/15/2023 Polymyalgia rheumatica 04/15/2023 Vitamin D deficiency 04/01/2022 Tobacco use disorder 04/01/2022 Chronic kidney disease stage 4 01/17/2021 Autosomal dominant polycystic kidney disease 03/2020 Renal osteodystrophy 10/04/2020 Type 2 diabetes mellitus without complication Overview (04/01/2022): Last Assessment & Plan: No diabetic ophthalmic changes noted right eye (OD) or left eye (OS). Educated on importance of blood sugar control. Will monitor. Nicotine dependence 06/08/2015 History of repair of inguinal hernia 12/19/2014 Hypertension 06/04/2011 Peripheral vascular disease 06/04/2011 Overview (04/01/2022): Diagnosed in 2004 with ultrasound of lower extremities Diagnosed in 2004 with ultrasound of lower extremities Multiple renal cysts 06/04/2011 Overview (04/01/2022): Managed by Dr Alarcon at [place] but patient has not seen him fall. Managed by Dr Alarcon at [place] but patient has not seen him fall. Mixed hypercholesterolemia and hypertriglyceride lizeth 06/04/2011 Overview (04/01/2022): Cholesterol medication (he does not recall which) was prescribed at one time in the past, but he stopped taking it due to leg pain. Cholesterol medication (he does not recall which) was prescribed at one time in the past, but he stopped taking it due to leg pain. Resolved Problems Problem Noted Date Diagnosed Date Resolved Date Renal disorder due to type 2 diabetes mellitus 04/01/2022 05/06/2023 Encounters Date Type Department Care Team Description 12/05/2024 Documentation Only [facility], [address] [phone] Estefania Ayers MA 12/05/2024 Documentation Only [facility], [address] [phone] Estefania Ayers MA 12/01/2024 Documentation Only [facility], [address] [phone] Faustina Mcfadden 12/01/2024 Documentation Only [facility], [address] [phone] Faustina Mcfadden 12/01/2024 Telephone [facility], [address] [phone] Henrietta Schneider MD 11/18/2024 Telephone [facility], [facility] [address] [place] [address] Estefania Ayers MA 11/18/2024 Documentation Only [facility], [facility] [address] [place] [address] Estefania Ayers MA 11/08/2024 Documentation Only [facility], [facility] [address] [place] [phone] Henrietta Schneider MD 11/08/2024 Documentation Only [facility], [facility] [address] [place] [phone] Henrietta Schneider MD 10/13/2024 Refill [facility], [facility] [address] [place] [phone] Lila Garcia MA Hyperkalemia 09/14/2024 Orders Only [facility], [facility] [address] [place] [phone] Ivis Kwan MA Chronic kidney disease stage 4 (HCC) (Primary Dx); Autosomal dominant polycystic kidney disease; Polymyalgia rheumatica (HCC); Pulmonary Mycobacterium avium complex infection (HCC); Mixed hypercholesterolemia and hypertriglyceridemia; Multiple renal cysts; Renal osteodystrophy; Tobacco dependence syndrome; Type 2 diabetes mellitus without complication (HCC); Nicotine dependence; Peripheral vascular disease (HCC); Hypertension; History of repair of inguinal hernia; Vitamin D deficiency, not otherwise specified 09/05/2024 Telephone [facility], [facility] [address] [place] [address] Henrietta Schneider MD from Last 3 Months Family History Medical History Relation Comments Polycystic kidney disease Child Diabetes Father Heart disease Father Hypertension Father Relation Status Comments Child Father Mother Alive Social History Tobacco Use Types Packs/Day Years Used Date Smoking Tobacco: Every Day Cigarettes Smokeless Tobacco: Never Tobacco Cessation:Ready to Q uit: Not Asked; Counseling Given: Not Answered Alcohol Use Standard Drinks/Week Comments No 0 (1 standard drink = 0.6 oz pur e alcohol) Sex and Gender Information Value Date Recorded Sex Assigned at Not on file Legal Sex Male 12:40 PM EST Gender Identity Not on file Sexual Orientation Not on file Last Filed Vital Signs Vital Sign Reading Time Taken Comments Blood Pressure 108/74 08/23/2024 2:38 PM CDT Pulse 85 08/23/2024 2:38 PM CDT Temperature - - Respiratory Rate - - Oxygen Saturation 95% 08/23/2024 2:38 PM CDT Inhaled Oxygen Concentration - - Weight 80.9 kg (178 lb 6.4 oz) 08/23/2024 2:38 P M CDT Height 182.9 cm (6') 08/23/2024 2:38 PM CDT Body Mass Index 24.2 08/23/2024 2:38 PM CDT Plan of Treatment Upcoming Encounters Date Type Department Care Team (Late st Contact Info) Description 12/06/2024 3:00 PM CDT Office Visit [facility], [facility] [address] [place] [address] Acacia Wells NP [address] [phone] Health Maintenance Due Date Last Done Comments Hepatitis B Vaccine (1 of 3 - 19+ 3-dose series) 1985 Pneumococcal Vaccine: 50+ Ye ars (1 of 2 - PCV) 1985 Colorectal Cancer Screening: Annual FOBT 12/19/2015 Colorectal Cancer Screening: Sigmoidoscopy 12/19/2015 Diabetes: Pedal Pulse Checked 05/07/2019 Diabetes: Sensory Foot Exam 05/07/2019 Diabetes: Visual Foot Exam 05/07/2019 Diabetes: Ophthalmology Exam 09/27/2021 09/27/2020 Diabetes: Hemoglobin A1C 12/25/2023 024, 05/26/2023, 01/08/2016 Influenza Vaccine (#1) 2024 03/22/2021 Colorectal Cancer Screening: Colonoscopy 11/28/2025 11/29/2015 Procedures Procedure Name Priority Date/Time Associated Diagnosis Comments CBC (INCLUDES DIFF/PLT) (EXTERNAL LAB ENTRY) Routine 12/01/2024 11:44 AM CDT RENAL FUNCTION PANEL (EXTERNAL LAB ENTRY) Routine 12/01/2024 11:44 AM CDT CBC (INCLUDES DIFF/PLT) (EXTERNAL LAB ENTRY) Routine 09/20/2024 1:12 PM CDT COMPREHENSIVE METABOLIC PANEL (CMP) (EXTERNAL LAB ENTRY) Routine 09/20/2024 1:12 PM CDT HEMOGLOBIN A1C (EXTERNAL RESULT ENTRY) Routine 05/26/2023 from Last 3 Months or Most Recently Relevant to Health Maintenance Results * CBC (Includes Diff/Plt) (External Lab) (12/01/2024 11:44 AM CDT) Only the most recent of2 resultswithin the time period is included. WBC 19.50 K/uL Red Blood Cell Count 4.84 Hemoglobin 15.7 g/dL Hematocrit 48.4 % MCV 100 MCH 32.4 MCHC 32.4 RDW 13.7 Platelet Count 213 MPV 9.3 Absolute Neutrophils 17.59 Absolute Lymphocytes 0.6 Absolute Monocytes 1.0 Absolute Eosinophils 0.1 Absolute Basophils 0.1 Neutrophils 90.2 K/uL Lymphocytes 3.14 Monocytes 5.0 Eosinophils 0.7 Basophils 0.4 Blood 12/01/2024 11:4 4 AM CDT Kamryn WoodwardFaustina yu - 12/01/2024 4:49 PM CDT [facility] [address] [place] [address] Dr. Gamal Becker, Mobile Marketing Manager Heri Calderon [facility] LAB BLOOD ORDERABLES Final Result * Renal Function Panel (External Lab) (12/01/2024 11:44 AM CDT) Pathologist [facility] Glucose 96 mg/dL BUN 39 mg/dL eGFR Non-Afr Botswanan 24.5 Sodium 140 mEq/L Potassium 4.4 mEq/L Chloride 103 Carbon Dioxide 20 mmol/L Calcium 8.7 mg/dL Phosphorus, Serum 2.9 mg/dL Albumin (Blood) 4.2 g/dL Creatinine 2.7 mg/dL Anion Gap 21.4 Blood 12/01/2024 11:4 4 AM CDT Heri Calderon VALVE INSERTER LAB BLOOD ORDERABLES Final Result * Comprehensive Metabolic Panel (CMP) (09/20/2024 [...] 1.8 g/dL Blood 09/20/2024 1:12 PM CDT Acacia Wells CANTILEVER CRANE OPERATOR LAB BLOOD ORDERABLES Staci l Result * Hemoglobin A1C (05/26/2023) Hemoglobin A1C 6.5 Blood specimen (specimen) Venous blood / Unknown 05/26/2023 Narrative Lila Garcia MA - 05/26/2023 [facility] External Provider LAB BLOOD ORDERABLES Final Result from Last 3 Months or Most Recently Relevant to Health Maintenance Insurance Dual Complete [place][id number]) Care Teams Engineering Coordinator Relationship Specialty Start Date End Date Lorie Mccormack FNP [id number] [place], [place] [address] PCP - General Family Medicine 12/01/24
--- OUTSIDE RECORDS SUMMARY | 2024-12-05 20:42 | XMS_ITS | Encounter Summary ---
Author Organization [facility] Address [address] [place] [address] Phone Care Team Providers Care Hydraulic Press Servicer Name Role Phone Elis Keller RN Unavailable Chano Parks MD Unavailable [phone] Sarah Kay MD Unavailable Pat Edwards MD Unavailable [phone] Datar, Jose Guadalupe Sosa MD Unavailable Gilles Estrella MD Unavailable Laverne Logan RN Unavailable [phone] Lorie Mccormack MILK POWDER GRINDER Primary Care Provider + Henrietta Schneider MD Unavailable Acacia Wells NP Unavailable Delmy Hagan Unavailable Unavailable Encounter Details Date Type Department Care Team (Late st Contact Info) Description 11/30/[address] [facility] Medicine Physicians [facility] Surgery [address] [place] [address] [address] [place] [address] Jack Nicholas CMA Social History Tobacco Use Types Packs/Day Years Used Date Smoking Tobacco: Former Cigarettes 1.5 20 0 05/12/2003 - 05/12/2023 Smokeless Tobacco: Never [facility] Utilities Answer Date Recorded In [...] any clubs o r organizations such as advent groups, unions, fraternal or athletic groups, or [...] time in the past 12 m [facility], were you homeless or living in a prison (including now)? No 10/09/2023 Personal Safety Answer [...] Telephone Encounter - Jack Nicholas CMA - 11/30/2024 4:04 PM CDT Spoke with patient and he declined the CT visit on 12/04. [facility] order to them at ([phone]). --Jack documented in this encounter Plan of Treatment Not on file documented as of this encounter Visit Diagnoses Not on filedocumented in this encounter Care Teams Hydraulic Press Servicer Relationship Specialty Start Date End Date Lorie Mccormack NP [address] [place] [address] PCP - General Family Medicine 09/11/23 Elis Keller RN [address] [place], [place] [id number] [address] Reporter 07/23/23 Chano Parks MD [address] [facility] [place] [address] Referring Physician Transplant 07/23/23 Sarah Kay MD [address] [place] [address] Referring Physician Cardiovascular Disease 07/24/23 Pat Edwards MD [address] [facility] [place] [address] Internal Medicine 07/24/23 Datar, Jose Guadalupe Sosa MD [address] [place] [address] Internal Medicine 07/24/23 Gilles Estrella MD [address] [place] [address] Punch Machine Operator Transplant 09/03/23 Laverne Logan, RN [address] [address] Heart Failure Coord[address] Reporter 09/03/23 Henrietta Schneider MD [address] [place] [address] [address] [place] [address] Nephrology 09/29/23 Acacia Wells [place] [place] [address] 09/29/23 Delmy Hagan Primary Outside Contractor Sales 11/03/24 documented as of this encounter
--- OUTSIDE RECORDS SUMMARY | 2024-12-05 20:42 | XMS_ITS | Clinical Summary ---
Author Organization [facility] Address [address] Prasad: Epic Prelude ADT ZAHIRA SHAFER [address] Care Team Providers Care Geriatric Social Work Professor Name Role Phone Unavailable Primary Care Provider Unavailabl e Allergies Active Allergy Reactions Criticality Noted Date Comments Alpha-Gal (Jznuijflr-Yzpfn-2,3-Galac tose) Diarrhea,Nausea and Vomiting,Abdominal Pain Low 07/22/2023 Rosuvastatin Other (See Comments) Low 12/25/2020 Leg Pain Sulfa (Sulfonamide Antibiotics) Hives High 06/04/2011 Venom-Wasp Anaphylaxis High 06/04/2011 Medications albuterol HFA 90 mcg inhaler Take 2 Puffs by inhalation every 6 hours as needed for Wheezing or Shortness of Breath. 8.5 Gram 0 12/26/19 18 Active nitroglycerin (NITROSTAT SUBLINGUAL) Place under tongue. 11/28/19 16 Active naloxone (NARCAN) 4 mg/spray [place], Non-Aerosol by See Admin Instructions route. 12/03/19 23 Active gabapentin (NEURONTIN) 800 mg tablet Take 800 mg by mouth 3 times daily. Active azithromycin (ZITHROMAX) 500 mg tablet Take 500 mg by mouth daily. Active lisinopriL (PRINIVIL) 20 mg tablet Take 20 mg by mouth 2 times daily. Active albuterol (ACCUNEB) 1.25 mg/3 mL Solution for Nebulization Take 1.25 mg by inhalation one time only. Active tocilizumab (Actemra ACTPen) 162 mg/0.9 mL Pen Injector injection Inject by subcutaneous injection one time only. Active amikacin liposomal-neb.acce ssr (Arikayce) 590 mg/8.4 mL Suspension for Nebulization Take by inhalation. Active aspirin (ECOTRIN EC) 81 mg Tablet, Delayed Release (E.C.) Take 81 mg by mouth daily. Active atovaquone (MEPRON) 750 mg/5 mL suspension Take 750 mg by mouth daily. 10mL with food Active CYANOCOBALAMIN, VITAMIN B-12, ORAL Take by mouth. Active calcium carbonate + vitamin D (CALTRATE+D) 600 mg-10 mcg (400 unit) Tablet Take 1 Tablet by mouth 2 times daily with meals. Active citalopram (CeleXA) 40 mg tablet Take 40 mg by mouth daily. Active cyclobenzaprine (FLEXERIL) 5 mg Tablet Take 5 mg by mouth 3 times daily as needed for Spasm. Active ethambutoL (MYAMBUTOL) 400 mg tablet Take 400 mg by mouth daily. 2 1/2 tablets every morning Active ezetimibe (ZETIA) 10 mg tablet Take 10 mg by mouth daily. Active hydroxychloroquine (PLAQUENIL) 200 mg tablet Take 200 mg by mouth 2 times daily. Active ketoconazole (NIZORAL) 2 % Shampoo Apply to affected area daily. 2-3 times weekly, allow to sit 5 minutes prior to rinsing Active metoprolol succinate (TOPROL XL) 50 mg Extended Release 24 hour tablet Take 50 mg by mouth daily. Active apremilast (Otezla) 30 mg Tablet Take 30 mg by mouth 2 times daily. Active oxyCODONE-acetamin ophen (PERCOCET) 5-325 mg tablet Take 1 Tablet by mouth every 4 hours as needed for Pain, Moderate. Active prasugreL (EFFIENT) 10 mg Tablet Take by mouth. Activ e predniSONE (DELTASONE) 20 mg tablet Take 20 mg by mouth daily. Active rifAMPin (RIFADIN) 300 mg capsule Take 600 mg by mouth daily. Active temazepam (RESTORIL) 30 mg capsule Take 30 mg by mouth daily at bedtime. 30 day period Active cholecalciferol, Vitamin D3, 50 mcg (2,000 unit) Tablet Take by mouth. Activ e ondansetron (ZOFRAN ODT) 4 mg Tablet, Rapid Dissolve Take 1 Tablet (4 mg) by mouth every 8 hours as needed for Nausea/Emesis. Dissolve tablet on top of tongue, then swallow with saliva. 20 Tablet 11/25/19 24 Active dicyclomine (BENTYL) 10 mg capsule Take 2 Capsules (20 mg) by mouth 4 times daily. 30 Capsule 11/25/19 24 Active atorvastatin (LIPITOR) 40 mg tablet Take 40 mg by mouth daily. 04/11/19 25 Active tiotropium-olodate roL (Stiolto Respimat) 2.5-2.5 mcg/actuation metered inhalerIndications :Stage 2 moderate COPD by GOLD classification (CMS/[facility]) INHALE 2 PUFFS BY MOUTH ONCE DAILY 4 Gram 8 09/16/19 25 Active Active Problems Problem Noted Date Diagnosed Date Vertebral artery occlusion, left 10/25/2024 Vertebrogenic low back pain 09/21/2024 Coronary artery disease invo lving circle coronary artery of circle heart without angina pectoris 09/13/2023 Overview (11/30/2024): [facility] Dec 2014 with PCI to proximal RCA, normal LVEDP 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 Educated on importance of blood sugar control. Will monitor. Cigarette dependence 06/08/2015 Status post right inguinal hernia repair 015 Polycystic kidney disease 06/04/2011 Overview (06/14/2020): Managed by Dr Alarcon at [facility] but patient has not seen him fall of 2009. Hypertension 06/04/2011 Hypercholesterolemia with hypertriglyceridemia 0 06/04/2011 Overview (06/14/2020): Cholesterol medication (he does not recall which) was prescribed at one time in the past, but he stopped taking it due to leg pain. PAD (peripheral artery disease) 06/04/2011 Overview (06/14/2020): Diagnosed in 2004 with ultrasound of lower extremities Resolved Problems Problem Noted Date Diagnosed Date Resolved Date Right inguinal hernia 12/08/20142014 Encounters Date Type Department Care Team Description 11/30/2024 Orders Only [facility] Cardiovas and Thor Surg at [address] [phone] Clara Dobson NP 11/21/2024 Abstract [facility] Cardiovas and Thor Surg at [address] [phone] Justin Mcgee MD 11/15/2024 External Device Data STL ABSTRACTION Provider, Abstract 11/15/2024 External Device Data STL ABSTRACTION Provider, Abstract 11/08/2024 External Device Data STL ABSTRACTION Provider, Abstract 11/02/2024 External Device Data STL ABSTRACTION Provider, Abstract 10/18/2024 External Device Data STL ABSTRACTION Provider, Abstract 10/05/2024 External Device Data STL ABSTRACTION Provider, Abstract 10/04/2024 Chart Note [facility] Pulmonology [address] [place] [address] Mauri Crump 09/27/2024 External Device Data STL ABSTRACTION Provider, Abstract 09/13/2024 Refill [facility] Pulmonology [address] [place] [address] Ernestine Dumont APRN Stage 2 moderate COPD by GOLD classification (CMS/HCC) (Primary Dx) 09/05/2024 Abstract [facility] Neurosurgery [address] [place] [address] Mika Jennings MD from Last 3 Months Immunizations Immunization Administration Dates Next Due (ADACEL/BOOSTRIX)(10 YR UP) TDAP VACCINE, 0.5ML, IM 12/25/2017 Family History Medical History Relation Name Comments Healthy Brother Diabetes Father Heart Disease Father cabg age 60 Other Maternal Grandfather Other Maternal Grandmother Other Mother Crohn's ds Other Paternal Grandfather Other Paternal Grandmother Heart Disease Paternal Uncle 1 Gen Lung Cancer Paternal Uncle 1 Gen Respiratory Disease Paternal Uncle 1 Gen Heart Disease Paternal Uncle 2 puneet age 5 6 from acute SD Healthy Sister Colon Cancer Neg Hx Relation Name Status Comments Brother Father Alive Maternal Grandfather Maternal Grandmother Mother Paternal Grandfather Paternal Grandmother Paternal Uncle 1 Gen Paternal Uncle 2 puneet Sister Social History Tobacco Use Types Packs/Day Years Used Date Smoking Tobacco: Every Day Cigarettes 1.6 30.8 Started: 1994 Smokeless Tobacco: Never Tobacco Cessation:Ready to Q [...] on file Legal Sex Male 2:22 PM HEAD OF TALENT MANAGEMENT Gender Identity Not on file Sexual Orientation Not on file Last Filed Vital Signs Vital Sign Reading Time Taken Comments Blood Pressure 122/72 05/24/2024 2:31 PM CDT Pulse 91 05/24/2024 2:31 PM CDT Temperature 36.7 C (98 F) 11/25/2023 5:30 PM CDT Respiratory Rate 11 11/25/2023 5:30 PM CDT Oxygen Saturation 94% 05/24/2024 2:31 PM CDT Inhaled Oxygen Concentration - - Weight 83 kg (183 lb) 05/24/2024 2:31 PM CDT Height 182.9 cm (6') 05/24/2024 2:31 PM CDT Body Mass Index 24.82 05/24/2024 2:31 PM CDT Plan of Treatment Upcoming Encounters Date Type Department Care Team (Late st Contact Info) Description 03/22/2025 2:00 PM HEAD OF TALENT MANAGEMENT Office Visit [facility] Neurology - [place] [address] [place] [address] Pily Alvarez MD [address] [place] [address] Health Maintenance Due Date Last Done Comments DIABETES ANNUAL FOOT EXAM 1984 HEPATITIS B VACCINES (1 of 3 - 19+ 3-dose series) 1985 FIT-DNA Q 3 years 12/19/2011 FIT/FOBT Q 1 year 12/19/2011 Flex Sig/CT Colonography Q 5 years 12/19/2011 Lung Cancer Screening 2016 COLORECTAL SCREENING 11/28/2020 11/29/2015, 11/29/19 16 Colorectal Cancer Screening 11/28/2020 COVID-19 Vaccine (3 - Pfizer risk series) 02/05/2021 01/08/2021, 10/01/2020 DIABETES ANNUAL RETINAL EXAM 09/27/2021 09/27/2020, 09/27/2020 DIABETES HBA1C Q 6 MONTHS 03/26/20242023, 02/19/2023, 01/08/2016, Additional history exists DIABETES MICROALBUMIN ANNUAL SCREEN 04/29/2024 04/30/2023 LDL CHOLESTEROL ANNUAL 04/29/2024 04/30/2023, 2023 INFLUENZA VACCINE (#1) 2024 03/22/2021 DTAP/TDAP/TD VACCINES (3 - T d or Tdap) 12/26/2027 12/25/2017, 07/22/2016 ZOSTER VACCINE Completed 12/03/2021, 08/16, 09/21/2018 Abdominal Aortic Aneurysm (A AA) Screening Completed 11/25/2023, 11/30/2015, 11/06/2015 Medical Devices Implanted Type Area Painter And Grader Cork Device Identifier Shelf Expiration Date Model / Serial / Lot Hemostatic Surgicel 3x4in 1942 - [id number] Implanted:Qty: 1 on 02/24/2023 by Brandon Ramirez MD at [facility] Hemostatic Neck [employer] 04/16/2027 1942 / / [id number] Remote Monitor Inspire Obstruct Sleep Xtrnl Model 2580 - [id number] Implanted:Qty: 1 on 02/24/2023 by Brandon Ramirez MD at [facility] Integral Neck [employer] [id number] / / Lead Neurostimulator Inspire Stim Obstruct Sleep 4063 - [id number] Implanted:Qty: 1 on 02/24/2023 by Brandon Ramirez MD at [facility] Lead Right: Neck [employer] 09/08/2025 4063 / [id number] / Lead Neurostimulator Inspire Pulse Gen Obstruct Sleep 3028 - [id number] Implanted:Qty: 1 on 02/24/2023 by Brandon Ramirez MD at [facility] Lead Right: Chest [employer] 12/03/2025 3028 / [id number] / Lead Neurostimulator Inspire Respiration-Sensi ng Obstruct Sleep 4340 - [id number] Implanted:Qty: 1 on 02/24/2023 by Brandon Ramirez MD at [facility] Lead Right: Chest [employer] 12/13/2025 4340 / [id number] / Mesh Marlex Sheet [id number] - [id number] Implanted:Qty: 1 on 12/19/2014 by Mike Louie MD Mesh Right: Abdomen CR [employer] 09/18/2017 [id number] / / Staple Staple Forehead Procedures Procedure Name Priority Date/Time Associated Diagnosis Comments CT ABDOMEN PELVIS WO CONTRAST Stat 11/25/2023 4:22 PM CDT MICROALBUMIN/CREATIN INE RATIO, RANDOM UR Routine 04/30/2023 LIPID PANEL Routine 04/30/2023 HEMOGLOBIN A1C Routine 02/19/2023 from Last 3 Months or Most Recently Relevant to Health Maintenance Results * CT ABDOMEN PELVIS WO CONTRAST (11/25/2023 4:22 PM CDT) Anatomical Region Laterality Modality Abdomen Computed Tomogra phy 11/25/2023 4:01 PM CDT Impressions 11/25/2023 5:08 PM CDT IMPRESSION: Please see below. Exam: CT ABDOMEN PELVIS WO CONTRAST Date/Time of Exam: 11/25/2023 4:22 PM Reason For Exam: Abdominal pain, acute, nonlocalized. Diagnosis: See Reason for Exam. Technique: CT imaging was performed of the abdomen and pelvis without the administration of intravenous contrast. Comparison: CT abdomen and pelvis 04/18/2018. Findings: Partially visualized chest: Bibasilar emphysematous change. Liver: Multiple hepatic cysts and subcentimeter hepatic hypodensities too small to characterize by CT. Gallbladder: Prior cholecystectomy. Pancreas: Normal. Spleen: Normal. Adrenal glands: Stable asymmetric nodular thickening of the adrenal glands. Kidneys and ureters: Innumerable bilateral renal cortical cysts and complex bilateral renal cortical cysts with bilateral nonobstructing renal calculi. Urinary bladder: Unremarkable. Reproductive organs: Prostatomegaly. GI tract: Moderate to marked diverticular change of a tortuous unopacified large bowel present. The unopacified bowel is otherwise unremarkable. Appendix: The appendix specifically is within normal limits. Retrocecal in location. Free fluid: No ascites. No pneumoperitoneum. Lymph nodes: No lymphadenopathy. Vasculature: Densley calcified abdominal aorta. Body wall: Unremarkable. Osseous structures: No acute osseous abnormality. No suspicious lesions. Multilevel degenerative disc disease of the lumbar spine greatest in severity at L2-3 and L3-4. Incomplete imaging of old fracture deformity of the posterolateral right eighth rib. IMPRESSION: 1. Diverticular change of the colon without CT evidence to suggest active diverticulitis at this time. 2. Constellation of CT findings compatible with underlying adult polycystic kidney disease. 3. Prostatomegaly. 4. Postcholecystectomy. 5. Bibasilar emphysematous change. [id number] Narrative Procedure Note Sobeida Street MD - 11/25/2023 IMPRESSION: Please see below. Exam: CT ABDOMEN PELVIS WO CONTRAST Date/Time of Exam: 11/25/2023 4:22 PM Reason For Exam: Abdominal pain, acute, nonlocalized. Diagnosis: See Reason for Exam. Technique: CT imaging was performed of the abdomen and pelvis without the administration of intravenous contrast. Comparison: CT abdomen and pelvis 04/18/2018. Findings: Partially visualized chest: Bibasilar emphysematous change. Liver: Multiple hepatic cysts and subcentimeter hepatic hypodensities too small to characterize by CT. Gallbladder: Prior cholecystectomy. Pancreas: Normal. Spleen: Normal. Adrenal glands: Stable asymmetric nodular thickening of the adrenal glands. Kidneys and ureters: Innumerable bilateral renal cortical cysts and complex bilateral renal cortical cysts with bilateral nonobstructing renal calculi. Urinary bladder: Unremarkable. Reproductive organs: Prostatomegaly. GI tract: Moderate to marked diverticular change of a tortuous unopacified large bowel present. The unopacified bowel is otherwise unremarkable. Appendix: The appendix specifically is within normal limits. Retrocecal in location. Free fluid: No ascites. No pneumoperitoneum. Lymph nodes: No lymphadenopathy. Vasculature: Densley calcified abdominal aorta. Body wall: Unremarkable. Osseous structures: No acute osseous abnormality. No suspicious lesions. Multilevel degenerative disc disease of the lumbar spine greatest in severity at L2-3 and L3-4. Incomplete imaging of old fracture deformity of the posterolateral right eighth rib. IMPRESSION: 1. Diverticular change of the colon without CT evidence to suggest active diverticulitis at this time. 2. Constellation of CT findings compatible with underlying adult polycystic kidney disease. 3. Prostatomegaly. 4. Postcholecystectomy. 5. Bibasilar emphysematous change. [id number] [place] Murphy MD CT ORDERABLES Final Re sult * MICROALBUMIN/CREATININE RATIO, RANDOM UR (04/30/2023) ABSTRACTED MICROALBUMIN,URI NE 6.0 ABSTRACTED CREATININE, URINE ABSTRACTED MICROALBUMIN/CRE ATININE RATIO, URINE Urine URINE SPECIMEN OBTAINED BY CLEAN CATCH PROCEDURE / Unknown 04/30/2023 us Abstract Provider URINE ORDERABLES Final Result * LIPID PANEL (04/30/2023) ABSTRACTED CHOLESTEROL 175 ABSTRACTED TRIGLYCERIDE 145 ABSTRACTED HDL 39 ABSTRACTED LDL CALCULATED 107 Blood 04/30/2023 us Abstract Provider CHEMISTRY ORDERABLES Final Res ult * HEMOGLOBIN A1C (02/19/2023) ABSTRACTED HGB A1C 5.4 % Blood 02/19/2023 us Abstract Provider CHEMISTRY ORDERABLES Final Res ult from Last 3 Months or Most Recently Relevant to Health Maintenance Insurance [place] [address] [place] [address] [facility] [id number] Advance Directives For more information, please contact: [phone] * Full Code (Latest Code Status on File) Date Activated Date Inactivated Comments 02/24/2023 10:26 AM 02/24/2023 4:05 PM * Full Code Date Activated Date Inactivated Comments 02/24/2023 7:51 AM 02/24/2023 10:26 AM
--- OUTSIDE RECORDS SUMMARY | 2024-12-05 20:42 | XMS_ITS | Encounter Summary ---
Author Organization [facility] Address [address] [place] [address] Phone Care Team Providers Care Vegetable Harvest Worker Name Role Phone Elis Keller RN Unavailable Chano Parks MD Unavailable [phone] Sarah Kay MD Unavailable Pat Edwards MD Unavailable [phone] Datar, Jose Guadalupe Sosa MD Unavailable Gilles Estrella MD Unavailable Laverne Logan RN Unavailable Lorie Mccormack MOTOR AND GENERATOR BRUSH MAKER Primary Care Provider + Henrietta Schneider MD Unavailable Acacia Wells NP Unavailable Delmy Hagan Unavailable Unavailable Encounter Details Date Type Department Care Team (Late st Contact Info) Description 12/05/2024 Telephone [facility] Medicine Physicians [facility] [address] [place] [address] [address] [place] [address] Jack Nicholas CMA Social History Tobacco Use Types Packs/Day Years Used Date Smoking Tobacco: Some Days Cigarettes 1.5 20 Started: 05/12/2003; Last attempted to quit: 05/12/2023 Smokeless Tobacco: Never [facility] Utilities Answer Date Recorded In the past [...] often do you attend chur ch or synagogue services? Never 10/09/2023 Do you belong to any clubs o r organizations such as mu-ism groups, unions, fraternal or athletic groups, or [...] any time in the past 12 m [facility], were you homeless or living in a detention (including now)? No 10/09/2023 AUDIT-C Answer Date [...] Telephone Encounter - Jack Nicholas CMA - 12/05/2024 8:44 AM CDT Message left for Dr. Stewart office to fax over patient latest Note to us. --Jack documented in this encounter Plan of Treatment Not on file documented as of this encounter Visit Diagnoses Not on filedocumented in this encounter Care Teams Vegetable Harvest Worker Relationship Specialty Start Date End Date Lorie Mccormack NP [address] [place] [address] PCP - General Family Medicine 09/11/23 Elis Keller RN [address] [facility] [address] [place] [address] Ccie 07/23/23 Chano Parks MD [address] [facility] [address] [place] [address] Referring Physician Transplant 07/23/23 Sarah Kay MD [address] [place] [address] Referring Physician Cardiovascular Disease 07/24/23 Pat Edwards MD [address] [facility] [place] [address] Internal Medicine 07/24/23 Datar, Jose Guadalupe Sosa MD [address] [place] [address] Internal Medicine 07/24/23 Gilles Estrella MD [address] [place] [address] Luster Repairer Transplant 09/03/23 Laverne Logan, RICHARD [address] [facility] [address] [place] [address] Heart Failure Coordinator Ccie 09/03/23 Henrietta Schneider MD Count includes the [facility] [address] Nephrology 09/29/23 Acacia Wells NP Count includes the [facility] [place] [address] 09/29/23 Delmy Hagan Primary Php Magento Developer 11/03/24 documented as of this encounter
--- OUTSIDE RECORDS SUMMARY | 2024-12-05 20:42 | XMS_ITS | Encounter Summary ---
Author Organization [facility] Address [address] [place] [address] Phone Care Team Providers Care Candy Counter Clerk Name Role Phone Elis Keller RN Unavailable Chano Parks MD Unavailable [phone] Sarah Kay MD Unavailable Pat Edwards MD Unavailable [phone] Datar, Jose Guadalupe Sosa MD Unavailable [phone] Gilles Estrella MD Unavailable [phone] Laverne Logan RN Unavailable [phone] Lorie Mccormack GLASSWARE DEFECT REPAIRER Primary Care Provider + Henrietta Schneider MD Unavailable Acacia Wells NP Unavailable Delmy Hagan Unavailable Unavailable Encounter Details Date Type Department Care Team (Late st Contact Info) Description 12/01/2024 Telephone [facility] Medicine Physicians [facility] Surgery [address] [place] [address] [address] [place] [address] Jack Nicholas CMA Social History Tobacco Use Types Packs/Day Years Used Date Smoking Tobacco: Former Cigarettes 1.5 20 0 05/12/2003 - 05/12/2023 Smokeless Tobacco: Never [facility] Utilities Answer Date Recorded In the [...] often do you attend chur ch or methodist services? Never 10/09/2023 Do you belong to any clubs o r organizations such as judaism groups, unions, fraternal or athletic groups, or [...] any time in the past 12 m [facility], were you homeless or living [...] Telephone Encounter - Jack Nicholas CMA - 12/01/2024 2:31 PM CDT Reached back out to Ani at [facility] to schedule the patient CT w/o contrast, she stated that the order has not been transcribed as of yet so she is unable to schedule. Will try back later. --Jack documented in this encounter Plan of Treatment Not on file documented as of this encounter Visit Diagnoses Not on filedocumented in this encounter Care Teams Candy Counter Clerk Relationship Specialty Start Date End Date Lorie Mccormack NP [address] [place] [address] PCP - General Family Medicine 09/11/23 Elis Keller RN [address] [facility] [address] [place] [address] Bobbin Marker 07/23/23 Chano Parks MD [address] [facility] [address] [place] [address] Referring Physician Transplant 07/23/23 Sarah Kay MD [address] [place] [address] Referring Physician Cardiovascular Disease 07/24/23 Pat Edwards MD [address] [facility] [address] Internal Medicine 07/24/23 Datar, Jose Guadalupe Sosa MD [address] [place] [address] Internal Medicine 07/24/23 Gilles Estrella MD [address] [place] [address] Sustainable Products Marketing Manager Transplant 09/03/23 Laverne Logan, RN [address] [address] Heart Failure Coordinator Bobbin Marker 09/03/23 Henrietta Schneider MD [address] [place] [address] Nephrology 09/29/23 Acacia Wells NP [facility] [place] [address] 09/29/23 Delmy Hagan Primary Pension Agent 11/03/24 documented as of this encounter
--- OUTSIDE RECORDS SUMMARY | 2024-12-05 20:42 | XMS_ITS | Encounter Summary ---
Author Organization [facility] Address [address] [place] [address] Phone Care Team Providers Care Field Producer Name Role Phone Elis Keller RN Unavailable Chano Parks MD Unavailable [phone] Sarah Kay MD Unavailable Pat Mooney MD Unavailable [phone] Datar, Jose Guadalupe Sosa MD Unavailable Gilles Estrella MD Unavailable Laverne Logan RN Unavailable Lorie Mccormack ANIMAL RIDE MANAGER Primary Care Provider + Henrietta Schneider MD Unavailable Acacia Wells NP Unavailable Delmy Hagan Unavailable Unavailable Encounter Details Date Type Department Care Team (Late st Contact Info) Description 11/30/2024 Telephone [facility] Medicine Physicians [facility] Surgery [address] [place] [address] [address] [place] [address] Jack Nicholas CMA Social History Tobacco Use Types Packs/Day Years Used Date Smoking Tobacco: Former Cigarettes 1.5 20 0 05/12/2003 - 05/12/2023 Smokeless Tobacco: Never [facility] Utilities Answer Date Recorded In the [...] any clubs o r organizations such as voodoo groups, unions, fraternal or athletic groups, or [...] any time in the past 12 m [facility], were you homeless or living in a [...] Encounter - Jack Nicholas CMA - 11/30/2024 2:30 PM CDT Called and left a message for Dr. MOONEY, [facility] office ([phone]) requesting patient last office note. Also sent a letter to ([phone]). --Jack documented in this encounter Plan of Treatment Not on file documented as of this encounter Visit Diagnoses Not on filedocumented in this encounter Care Teams Field Producer Relationship Specialty Start Date End Date Lorie Mccormack NP [address] [place] [address] PCP - General Family Medicine 09/11/23 Elis Keller, RIHCARD [address] [place], [place] [id number] Broadcast Designer 07/23/23 Chano Parks MD 49[address] [facility] [address] [place] [address] Referring Physician Transplant 07/23/23 Sarah Kay MD [address] [place] [address] Referring Physician Cardiovascular Disease 07/24/23 Pat Mooney MD [address] [facility] [place] [address] Internal Medicine 07/24/23 Datar, Jose Guadalupe Sosa MD [address] [place] [address] Internal Medicine 07/24/23 Gilles Estrella MD [address] [place] [address] Ruching Machine Operator Transplant 09/03/23 Laverne Logan, RN [address] [address] Heart Failure Coordinator Broadcast Designer 09/03/23 Henrietta Schneider MD [address] [place] [address] Nephrology 09/29/23 Acacia Wells NP [address] [place] [phone] 09/29/23 Delmy Hagan Primary Erp Programmer 11/03/24 documented as of this encounter
--- OUTSIDE RECORDS SUMMARY | 2024-12-05 20:42 | XMS_ITS | Encounter Summary ---
Author Organization [facility] Address [address] [place] [address] Phone Care Team Providers Care Coremaker Apprentice Name Role Phone Elis Keller RN Unavailable Chano Parks MD Unavailable [phone] Sarah Kay MD Unavailable Pat Edwards MD Unavailable [phone] Datar, Jose Guadalupe Sosa MD Unavailable Gilles Estrella MD Unavailable Laverne Logan RN Unavailable Lorie Mccormack CONVERTER OPERATOR Primary Care Provider + Henrietta Schneider MD Unavailable [phone] Acacia Wells NP Unavailable [phone] Delmy Hagan Unavailable Unavailable Reason for Referral * MRI/CAT/PET Scan (Routine) - Closed Specialty Diagnoses / Procedures Referred By Contac t Referred To Contact Diagnoses 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 CT chest without contrast Shahana Yoder NP [address] [place] [address] Phone: tel: fax: External Order Referral ID Status Reason Start Date Expiration Date Visits Re quested Visits Authorized [id number] Closed 11/30/2024 12/30/2025 1 1 Encounter Details Date Type Department Care Team (Late st Contact Info) Description 11/30/2024 Orders Only [facility] [address] [facility] [address] [place] [address] Shahana Yoder NP [address] [facility] [address]-17 [place] [address] 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 Never 10/09/2023 Do you belong to any clubs o r organizations such as zoroastrian groups, unions, fraternal or athletic groups, or [...] were you homeless or living in a halfway (including now)? No 10/09/2023 Personal Safety Answer [...] on file documented as of this encounter Results * CT chest without [...] Roland Proctor M.D. BS: SVITLANA Report ID: [id number] Reading Location: [id number] Procedure Note Roland Proctor MD - 12/05/2024 [...] in size and number. There are multiple [id number] opacities in the right upper lobe. Scattered [...] Roland Proctor M.D. 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 [address] [place] [address] Head Animal Trainer 07/23/23 Chano Parks MD 49[address] [facility] [address] [place] [address] Referring Physician Transplant 07/23/23 Sarah Kay MD [address] [place] [address] Referring Physician Cardiovascular Disease 07/24/23 Pat Edwards MD [address] [facility] [place] [address] Internal Medicine 07/24/23 Datar, Jose Guadalupe Sosa MD [address] [place] [address] Internal Medicine 07/24/23 Gilles Estrella MD [address] [place] [address] Event Specialist Product Demonstrator Transplant 09/03/23 Laverne Logan, RN [address] [address] Heart Failure Coordinator Head Animal Trainer 09/03/23 Henrietta Schneider MD [address] [facility] [address] [place] [address] Nephrology 09/29/23 Acacia Wells NP [facility] [place] [address] 09/29/23 Delmy Hagan Primary Knitting Machine Fixer Head 11/03/24 documented as of this encounter
--- OUTSIDE RECORDS SUMMARY | 2024-12-05 20:42 | XMS_ITS | Encounter Summary ---
Author Organization [facility] Address [address] [place] [address] Phone Care Team Providers Care Isolation Washer Name Role Phone Elis Keller RN Unavailable Chano Parks MD Unavailable [phone] Sarah Kay MD Unavailable Pat Edwards MD Unavailable [phone] Datar, Jose Guadalupe Sosa MD Unavailable [phone] Gilles Estrella MD Unavailable [phone] Laverne Logan RN Unavailable [phone] Lroie Mccormack MATERIALS DEVELOPMENT ENGINEER Primary Care Provider + Henrietta Schneider MD Unavailable Acacia Wells NP Unavailable Delmy Hagan Unavailable Unavailable Encounter Details Date Type Department Care Team (Late st Contact Info) Description 12/02/2024 Telephone [facility] Medicine Physicians [facility] Surgery [address] [place] [address] [address] [place] [address] Jack Nicholas CMA Social History Tobacco Use Types Packs/Day Years Used Date Smoking Tobacco: Former Cigarettes 1.5 20 0 05/12/2003 - 05/12/2023 Smokeless Tobacco: Never [facility] Utilities Answer Date Recorded In the [...] often do you attend chur ch or protestant services? Never 10/09/2023 Do you belong to any clubs o r organizations such as episcopal groups, unions, fraternal or athletic groups, or [...] any time in the past 12 m [facility], were you homeless or living in a longterm (including now)? No 10/09/2023 Personal Safety Answer [...] Telephone Encounter - Jack Nicholas CMA - 12/02/2024 8:43 AM CDT Spoke with patient and was able to get his CT arranged at the [facility] [address] for Thursday December 05, 2024 at 12:30. Patient was okay with this visit. --Jack documented in this encounter Plan of Treatment Not on file documented as of this encounter Visit Diagnoses Not on filedocumented in this encounter Care Teams Isolation Washer Relationship Specialty Start Date End Date Lorie Mccormack NP [address] [place] [address] PCP - General Family Medicine 09/11/23 Elis Keller, RICHARD [address] [place] [address] Australian Rules Footballer 07/23/23 Chano Parks MD 49[address] [facility] [address] [place] [address] Referring Physician Transplant 07/23/23 Sarah Kay MD [address] [place] [address] Referring Physician Cardiovascular Disease 07/24/23 Pat Edwards MD [address] [place] [address] [place] [address] Internal Medicine 07/24/23 Datar, Jose Guadalupe Sosa MD [address] [place] [address] Internal Medicine 07/24/23 Gilles Estrella MD [address] [place] [address] Agent Based Modeler Transplant 09/03/23 Laverne Logan, RICHARD [address] [address] Heart Failure Coordinator Australian Rules Footballer 09/03/23 Henrietta Schneider MD [address] [place] [address] Nephrology 09/29/23 Acacia Wells NP [address] [place] [phone] 09/29/23 Delmy Hagan Primary Partner Alliance Manager 11/03/24 documented as of this encounter
--- OUTSIDE RECORDS SUMMARY | 2024-12-05 20:42 | XMS_ITS | Encounter Summary ---
Author Organization [facility] Address [address] [place] [address] Care Team Providers Care Salvage Engineer Name Role Phone Elis Keller RN Unavailable Chano Parks MD Unavailable [phone] Sarah Kay MD Unavailable Pat Edwards MD Unavailable [phone] Datar, Jose Guadalupe Sosa MD Unavailable [phone] Gilles Estrella MD Unavailable Laverne Logan RN Unavailable Lorie Mccormack RECREATION THERAPIST Primary Care Provider + Henrietta Schneider MD Unavailable Acacia Wells NP Unavailable Delmy Hagan Unavailable Unavailable Encounter Details Date Type Department Care Team (Late st Contact Info) Description 11/30/2024 Orders Only [facility] Lab [address] [place] [address] Champ Danielle MD [address] [place] [address] Social History Tobacco Use Types Packs/Day Years Used Date Smoking Tobacco: Former Cigarettes 1.5 20 0 05/12/2003 - 05/12/2023 Smokeless Tobacco: Never [facility] Utilities Answer Date Recorded In the past [...] often do you attend chur ch or oriental orthodox services? Never 10/09/2023 Do you belong to any clubs o r organizations such as amish groups, unions, fraternal or athletic groups, or [...] any time in the past 12 m [facility], were you homeless or living in a longterm (including now)? No 10/09/2023 AUDIT-C Answer Date [...] on filedocumented in this encounter Care Teams Salvage Engineer Relationship Specialty Start Date End Date Lorie Mccormack NP [address] [place], [place] [address] PCP - General Family Medicine 09/11/23 Elis Keller, RICHARD [address] [facility] [address] [place], [place] [phone] Consulting Practice Director 07/23/23 Chano Parks MD 4921 [facility] [address] [place] [address] Referring Physician Transplant 07/23/23 Sarah Kay MD [address] [place] [address] Referring Physician Cardiovascular Disease 07/24/23 Pat Edwards MD 1100 [facility] [place] [address] Internal Medicine 07/24/23 Datar, Jose Guadalupe Sosa MD [address] [place] [address] Internal Medicine 07/24/23 Gilles Estrella MD [address] [place] [address] Material Reprocessing Associate Transplant 09/03/23 Laverne Logan, RN [address] [address] Heart Failure Coordinator Consulting Practice Director 09/03/23 Henrietta Schneider MD [address] [place] [address] Nephrology 09/29/23 Acacia Wells NP [address] [place] [phone] 09/29/23 Delmy Hagan Primary Health Professional 11/03/24 documented as of this encounter
--- OUTSIDE RECORDS SUMMARY | 2024-12-05 20:42 | XMS_ITS | Encounter Summary ---
Author Organization [facility] Address [address] [place] [address] Phone Care Team Providers Care Operator Assistant I Cementing Name Role Phone Elis Keller RN Unavailable [phone] Chano Parks MD Unavailable [phone] Sarah Kay MD Unavailable [phone] Pat Edwards MD Unavailable [phone] Datar, Jose Guadalupe Sosa MD Unavailable [phone] Gilles Estrella MD Unavailable Laverne Logan RN Unavailable Lorie Mccormack LOOM OPERATOR Primary Care Provider + Henrietta Schneider MD Unavailable Acacia Wells NP Unavailable Delmy Hagan Unavailable Unavailable Encounter Details Date Type Department Care Team (Late st Contact Info) Description 12/02/2024 Telephone [facility] Medicine Physicians [facility] Surgery [address] [place] [address] [address] [place] [address] Jack Nicholas CMA Social History Tobacco Use Types Packs/Day Years Used Date Smoking Tobacco: Former Cigarettes 1.5 20 0 05/12/2003 - 05/12/2023 Smokeless Tobacco: Never [facility] Utilities Answer Date Recorded In the [...] often do you attend chur ch or taoism services? Never 10/09/2023 Do you belong to any clubs o r organizations such as hoahaoism groups, unions, fraternal or athletic groups, or [...] any time in the past 12 m [facility], were you homeless or living [...] Encounter - Jack Nicholas CMA - 12/02/2024 8:52 AM CDT Second message left for Dr. Stewart office requesting patient last office note. Will try again later. --Jack documented in this encounter Plan of Treatment Not on file documented as of this encounter Visit Diagnoses Not on filedocumented in this encounter Care Teams Operator Assistant I Cementing Relationship Specialty Start Date End Date Lorie Mccormack NP [address] [place] [address] PCP - General Family Medicine 09/11/23 Elis Keller, RICHARD 45[address] [facility] [address] [place] [address] Yarn Packer 07/23/23 Chano Parks MD 49[address] [facility] [address] [place], [place] [address] Referring Physician Transplant 07/23/23 Sarah Kay MD [address] [place] [address] Referring Physician Cardiovascular Disease 07/24/23 Pat Edwards MD [address] [place] [address] [place] [address] Internal Medicine 07/24/23 Datar, Jose Guadalupe Sosa MD [address] [place] [address] Internal Medicine 07/24/23 Gilles Estrella MD [address] [place] [address] Splunk Consultant Transplant 09/03/23 Laverne Logan, RICHARD 4590 [facility] [address] [place], [place] [phone] Heart Failure Coordinator Yarn Packer 09/03/23 Henrietta Schneiedr MD [facility]1 [facility] 301 [place], [place] [id number] Nephrology 09/29/23 Acacia Wells NP [address] [place] [phone] 09/29/23 Delmy Hagan Primary Visual Education Director 11/03/24 documented as of this encounter
--- OUTSIDE RECORDS SUMMARY | 2024-12-05 20:42 | XMS_ITS | Encounter Summary ---
Author Organization [facility] Address [address] [place] [address] Phone Care Team Providers Care Screwdown Operator Name Role Phone Lorie Mccormack VAISHALI Primary Care Provider [phone] Encounter Details Date Type Department Care Team (Late st Contact Info) Description 12/01/2024 [facility]phone [facility] [address] [place] [address] Henrietta Schneider MD [address] [facility] [address] [place] [address] Social History Tobacco Use Types [...] encounter Miscellaneous Notes * Telephone Encounter - Faustina Mcfadden - 12/01/2024 11:14 AM CDT Call out to pt RE; well logging mud analysis captain lab and appt 12/05. LVM requesting return call documented in this encounter Plan of Treatment Upcoming Encounters Date Type Department Care Team (Late st Contact Info) Description 12/06/2024 3:00 PM CDT Office Visit [facility] [address] [place] [address] Acacia Wells NP [address] [facility] [address] [place] [address] documented as of this encounter Visit Diagnoses Not on filedocumented in this encounter Care Teams Screwdown Operator Relationship Specialty Start Date End Date Lorie Mccormack FNP [address] [place] [address] PCP - General Family Medicine 12/01/24 documented as of this encounter
--- OUTSIDE RECORDS SUMMARY | 2024-12-05 20:42 | XMS_ITS | Encounter Summary ---
Author Organization [facility] Address [address] [place] [address] Phone Care Team Providers Care Office Clinician Name Role Phone Elis Keller RN Unavailable Chano Parks MD Unavailable [phone] Sarah Kay MD Unavailable Pat Edwards MD Unavailable [phone] Datar, Jose Guadalupe Sosa MD Unavailable Gilles Estrella MD Unavailable [phone] Laverne Logan RN Unavailable Lorie Mccormack DIGITAL MARKETING ANALYST Primary Care Provider + Henrietta Schneider MD Unavailable [phone] Acacia Wells NP Unavailable Delmy Hagan Unavailable Unavailable Reason for Visit * Reason Onset Date Comments Scheduling Appointments 12/01/2024 Encounter Details Date Type Department Care Team (Late st Contact Info) Description 12/01/[address] [facility] Medicine Scheduling [address] [place] [address] So Cottrell MD [address] [address] Scheduling Appointments Social History Tobacco Use Types Packs/Day Years [...] money to buy more. Never true 10/09/19 Within the past 12 months, t he [...] any time in the past 12 m [facility], were you homeless or [...] encounter Miscellaneous Notes * Telephone Encounter - Lilo [place] BS - 12/01/2024 10:53 AM CDT Called to confirm upcoming appt documented in this encounter Plan of Treatment Not on file documented as of this encounter Visit Diagnoses Not on filedocumented in this encounter Care Teams Office Clinician Relationship Specialty Start Date End Date Lorie Mccormack NP [address] [place] [address] PCP - General Family Medicine 09/11/23 Elis Keller RN [address] [place] [address] Cloth Calender 07/23/23 Chano Parks MD 49[address] [facility] [address] [place] [address] Referring Physician Transplant 07/23/23 Sarah Kay MD [address] [place] [address] Referring Physician Cardiovascular Disease 07/24/23 Pat Edwards MD [address] [facility] [place] [address] Internal Medicine 07/24/23 Datar, Jose Guadalupe Sosa MD [address] [place] [address] Internal Medicine 07/24/23 Gilles Estrella MD [address] [place] [address] Airplane Pilot Transplant 09/03/23 Laverne Logan, RN [address] [address] Heart Failure Coordinator Cloth Calender 09/03/23 Henrietta Schneider MD [address] [place] [address] [address] [place] [address] Nephrology 09/29/23 Acacia [place] [address] 09/29/23 Delmy Hagan Primary Replanter 11/03/24 documented as of this encounter
--- OUTSIDE RECORDS SUMMARY | 2024-12-05 20:42 | XMS_ITS | Encounter Summary ---
Author Organization [facility] Healthcare Address [address] [place] [address] Care Team Providers Care Sliver Chopper Name Role Phone Elis Keller RN Unavailable Chano Parks MD Unavailable [phone] Sarah Kay MD Unavailable [phone] Pat Edwards MD Unavailable Datar, Jose Guadalupe Sosa MD Unavailable Gilles Estrella MD Unavailable [phone] Laverne Logan RN Unavailable Lorie Mccormack LEGAL DEPARTMENT MANAGER Primary Care Provider + Henrietta Schneider MD Unavailable Acacia Wells NP Unavailable Delmy Hagan Unavailable Unavailable Encounter Details Date Type Department Care Team (Late st Contact Info) Description 11/30/2024 Orders Only [facility] Lab [address] [place] [address] Champ Danielle MD [address] [place] [address] Social History Tobacco Use Types Packs/Day Years Used Date Smoking Tobacco: Former Cigarettes 1.5 20 0 05/12/2003 - 05/12/2023 Smokeless Tobacco: Never [facility] Utilities Answer Date Recorded In the past [...] often do you attend chur ch or hindu services? Never 10/09/2023 Do you belong to any clubs o r organizations such as protestant groups, unions, fraternal or athletic groups, or [...] any time in the past 12 m [facility], were you homeless or living in a [...] on filedocumented in this encounter Care Teams Sliver Chopper Relationship Specialty Start Date End Date Lorie Mccormack NP [address] [place], [place] [address] PCP - General Family Medicine 09/11/23 Elis Keller, RICHARD 4590 [facility] [address] [place], [place] [phone] Beater Room Helper 07/23/23 Chano Parks MD 49[address] [facility] [address] [place] [address] Referring Physician Transplant 07/23/23 Sarah Kay MD [address] [place] [address] Referring Physician Cardiovascular Disease 07/24/23 Pat Edwards MD 1100 [facility] [place] [address] Internal Medicine 07/24/23 Datar, Jose Guadalupe Sosa MD [address] [place] [address] Internal Medicine 07/24/23 Gilles Estrella MD [address] [place] [address] Android Architect Transplant 09/03/23 Laverne Logan, RN [address] [address] Heart Failure Coordinator Beater Room Helper 09/03/23 Henrietta Schneider MD [address] [place] [address] Nephrology 09/29/23 Acacia Wells NP [address] [place] [phone] 09/29/23 Delmy Hagan Primary Pharmacy Scheduler 11/03/24 documented as of this encounter
--- OUTSIDE RECORDS SUMMARY | 2024-12-05 20:42 | XMS_ITS | Encounter Summary ---
Author Organization [facility] Address [address] [place] [address] Phone Care Team Providers Care Trommel Tender Name Role Phone Elis Keller RN Unavailable Chano Parks MD Unavailable [phone] Sarah Kay MD Unavailable Pat Edwards MD Unavailable [phone] Datar, Jose Guadalupe Sosa MD Unavailable [phone] Gilles Estrella MD Unavailable [phone] Laverne Logan RN Unavailable [phone] Lorie Mccormack ADVISOR [employer]ER Primary Care Provider + Henrietta Schneider MD Unavailable Acacia Wells NP Unavailable Delmy Hagan Unavailable Unavailable Encounter Details Date Type Department Care Team (Late st Contact Info) Description 12/02/2024 Telephone [facility] Medicine Physicians [facility] [address] [place] [address] [address] [place] [address] Jack Nicholas CMA Social History Tobacco Use Types Packs/Day Years Used Date Smoking Tobacco: Former Cigarettes 1.5 20 0 05/12/2003 - 05/12/2023 Smokeless Tobacco: Never [facility] Utilities Answer Date Recorded In the [...] often do you attend chur ch or sabianist services? Never 10/09/2023 Do you belong to any clubs o r organizations such as jain groups, unions, fraternal or athletic groups, or [...] any time in the past [address] [facility], were you homeless or living in a fci (including now)? No 10/09/2023 AUDIT-C Answer Date [...] Functional Status documented as of this encounter Miscellaneous Notes * Telephone Encounter - Jack Nicholas CMA - 12/02/2024 12:37 PM CDT Attempted to reach Dr. Stewart office to obtain patient last office note, left messages on [phone] & [phone]. Also reached out to the [facility] number at [phone]. No success. Awaiting a call back. --Jack documented in this encounter Plan of Treatment Not on file documented as of this encounter Visit Diagnoses Not on filedocumented in this encounter Care Teams Trommel Tender Relationship Specialty Start Date End Date Lorie Mccormack NP [address] [place] [address] PCP - General Family Medicine 09/11/23 Elis Keller, RICHARD [address] [facility] [address] [place], [place] [id number] Color Consultant 07/23/23 Chano Parks MD [address] [facility] [address] [place] [address] Referring Physician Transplant 07/23/23 Sarah Kay MD [address] [place] [address] Referring Physician Cardiovascular Disease 07/24/23 Pat Edwards MD [address] [facility] [place] [address] Internal Medicine 07/24/23 Datar, Jose Guadalupe Sosa MD [address] [place] [address] Internal Medicine 07/24/23 Gilles Estrella MD [address] [place] [address] Clicking Machine Operator Transplant 09/03/23 Laverne Logan, RN [address] [address] Heart Failure Coordinator Color Consultant 09/03/23 Henrietta Schneider MD [address] [place] [address] [address] [place] [address] Nephrology 09/29/23 Acacia eWlls NP [address] [place] [address] 09/29/23 Delmy Hagan Primary Senior Tableau Developer 11/03/24 documented as of this encounter
--- OUTSIDE RECORDS SUMMARY | 2024-12-05 20:42 | XMS_ITS | Encounter Summary ---
Author Organization [facility] Address [address] [place] [address] Phone Care Team Providers Care State Game Warden Name Role Phone Elis Keller RN Unavailable [phone] Chano Parks MD Unavailable [phone] Sarah Kay MD Unavailable [phone] Pat Edwards MD Unavailable [phone] Datar, Jose Guadalupe Sosa MD Unavailable [phone] Gilles Estrella MD Unavailable Laverne Logan RN Unavailable [phone] Lorie Mccormack MICROFILM CLERK Primary Care Provider + Henrietta Schneider MD Unavailable [phone] Acacia Wells NP Unavailable Delmy Hagan Unavailable Unavailable Encounter Details Date Type Department Care Team (Late st Contact Info) Description 12/01/[address] [facility] Medicine Physicians [facility] Surgery [address] [place] [address] [address] [place] [address] Jack Nicholas CMA Social History [...] often do you attend chur ch or catholic services? Never 10/09/2023 Do you belong to any clubs o r organizations such as mosque groups, unions, fraternal or athletic groups, or [...] any time in the past 12 m [facility], were you homeless or living in a custodial (including now)? No 10/09/2023 Personal Safety Answer [...] Encounter - Jack Nicholas CMA - 12/01/2024 9:32 AM CDT Spoke with Ani at [facility] in an attempt to schedule patient CT, she stated the order did not come through, re-faxed this morning to her at ([phone]). --Jack documented in this encounter Plan of Treatment Not on file documented as of this encounter Visit Diagnoses Not on filedocumented in this encounter Care Teams State Game Warden Relationship Specialty Start Date End Date Lorie Mccormack NP [address] [place] [address] PCP - General Family Medicine 09/11/23 Elis Keller RN [address] [facility] [address] [place], [place] [id number] Zinc Chloride Operator 07/23/23 Chano Parks MD [address] [facility] [address] [place] [address] Referring Physician Transplant 07/23/23 Sarah Kay MD [address] [place] [address] Referring Physician Cardiovascular Disease 07/24/23 Pat Edwards MD [address] [facility] [place] [address] Internal Medicine 07/24/23 Datar, Jose Guadalupe Sosa MD [address] [place] [address] Internal Medicine 07/24/23 Gilles Estrella MD [address] [place] [address] Senior It Project Manager Transplant 09/03/23 Laverne Logan, RN [address] [address] Heart Failure Coordinator Zinc Chloride Operator 09/03/23 Henrietta Schneider MD [address] [place] [address] Nephrology 09/29/23 Acacia Wells [place] [address] 09/29/23 Delmy Hagan Primary Wine And Spirits Clerk 11/03/24 documented as of this encounter
--- OUTSIDE RECORDS SUMMARY | 2024-12-05 20:43 | XMS_ITS | Encounter Summary ---
Author Organization [facility] Address [address] [place] [address] Phone Care Team Providers Care Electrician Third Name Role Phone Elis Keller RN Unavailable Chano Parks MD Unavailable [phone] Sarah Kay MD Unavailable Pat Edwards MD Unavailable [phone] Datar, Jose Guadalupe Sosa MD Unavailable [phone] Gilles Estrella MD Unavailable [phone] Laverne Logan RN Unavailable Lorie Mccormack PC TECH Primary Care Provider + Henrietta Schneider MD Unavailable [phone] Acacia Wells NP Unavailable [phone] Delmy Hagan Unavailable Unavailable Reason for Referral * MRI/CAT/PET Scan (Routine) - Pending Review Specialty Diagnoses / Procedures Referred By Contkory t Referred To Contact Radiology Diagnoses 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 Never 10/09/2023 Do you [...] any time in the past 12 m [facility], were you homeless or living in a jail (including now)? 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 documented in this encounter Care Teams Electrician Third Relationship Specialty Start Date End Date Cynthia Mccormacknna JUVENTINO Hale [address] [place], [place] [address] PCP - General Family Medicine 09/11/23 Elis Keller, RICHARD [address] [place] [address] Business Analyst Sales Operations 07/23/23 Chano Parks MD [address] [facility] [address] [place] [address] Referring Physician Transplant 07/23/23 Sarah Kay MD [address] [place] [address] Referring Physician Cardiovascular Disease 07/24/23 Pat Edwards MD [address] [facility] [place] [address] Internal Medicine 07/24/23 DatarJose Guadalupe MD [address] [place] [address] Internal Medicine 07/24/23 Gilles Estrella MD [address] [place] [address] Academic Affairs Manager Transplant 09/03/23 Laverne Logan, RICHARD [address] [facility] [address] [place] [address] Heart Failure Coordinator Business Analyst Sales Operations 09/03/23 Henrietta Schneider MD [address] [facility] [address] [place], [place] [address] Nephrology 09/29/23 Acacia Wells NP [address] [place] [address] 09/29/23 Delmy Hagan Primary Product Representative 11/03/24 documented as of this encounter
--- OUTSIDE RECORDS SUMMARY | 2024-12-05 20:43 | XMS_ITS | Encounter Summary ---
Author Organization [facility] Address [address] [place] [address] Phone Care Team Providers Care Healthcare Or Medical Name Role Phone Elis Keller RN Unavailable Chano Parks MD Unavailable [phone] Sarah Kay MD Unavailable Pat Edwards MD Unavailable [phone] Datar, Jose Guadalupe Sosa MD Unavailable Gilles Estrella MD Unavailable [phone] Laverne Logan RN Unavailable Lorie Mccormack [employer] Primary Care Provider + Henrietta Schneider MD Unavailable Acacia Wells NP Unavailable Delmy Hagan Unavailable Unavailable Encounter Details Date Type Department Care Team (Late st Contact Info) Description 11/30/2024 Telephone [facility] Medicine Physicians [facility] Surgery [address] [place] [address] [address] [place] [address] Jack Nicholas CMA Social History Tobacco Use Types Packs/Day Years Used Date Smoking Tobacco: Former Cigarettes 1.5 20 0 05/12/2003 - 05/12/2023 Smokeless Tobacco: Never [facility] Utilities Answer Date Recorded In the [...] often do you attend chur ch or faith services? Never 10/09/2023 Do you belong to [...] any time in the past 12 m [facility], were you homeless or living in a [...] Encounter - Jack Nicholas CMA - 11/30/2024 2:40 PM CDT Spoke with patient in regards to arranging a CT prior to his visit with Dr. Danielle. Asked if he preferred to go to a location closer to his home or go to [facility]. Patient opt 'd to go to [place]. Advised patient that I will arrange this. Asked if I could call him back in one hour with the scheduling details since he is getting ready to undergo a MRI. Advised him that I would. CT scheduled for Wednesday, December 04, 2024 at 5:30 with a 5:15 pm arrival. Patient would need to check in at the ER registration at the [facility]. --Jack documented in this encounter Plan of Treatment Not on file documented as of this encounter Visit Diagnoses Not on filedocumented in this encounter Care Teams Healthcare Or Medical Relationship Specialty Start Date End Date Lorie Mccormack NP [address] [place] [address] PCP - General Family Medicine 09/11/23 Elis Keller, RICHARD [address] [facility] [address] [place] [address] Rodeo Performer 07/23/23 Chano Parks MD [address] [facility] [address] [place] [address] Referring Physician Transplant 07/23/23 Sarah Kay MD [address] [place] [address] Referring Physician Cardiovascular Disease 07/24/23 Pat Edwards MD [address] [facility] [place] [address] Internal Medicine 07/24/23 Datar, Jose Guadalupe Sosa MD [address] [place] [address] Internal Medicine 07/24/23 Gilles Estrella MD [address] [place] [address] Child Support Specialist Transplant 09/03/23 Laverne Logan, RN [address] [facility] [address] [place], [place] [id number] Heart Failure Coordinator Rodeo Performer 09/03/23 Henrietta Schneider MD [address] [facility] [address] [place], [place] [address] Nephrology 09/29/23 Acacia Wells NP [address] [place] [address] 09/29/23 Delmy Hagan Primary Clinical Pathologist 11/03/24 documented as of this encounter
[2024-12-05 20:45] VITALS: BP 110/63; PULSE 115; RESP 20; TEMP 36.7; O2SAT 92; BMI 24.4
--- NOTE | 2024-12-05 21:14 | XRR_ITS ---
PROCEDURE INFORMATION: Exam: XR Chest Exam date and time: 12/05/2024 9:34 PM Age: 58 years old Clinical indication: Shortness of breath; Prior surgery; Surgery date: 6+ months; Surgery type: Sleep apnea device cardiac stents; Additional info: Shortness of breath/cough TECHNIQUE: Imaging protocol: Radiologic exam of the chest. Views: 2 views. COMPARISON: CR XR chest 2V* [id number] 12/01/2024 11:19 AM, chest CT from 09/15/2024 FINDINGS: Tubes, catheters and devices: A neurostimulator power pack still overlies the right chest. Lungs: A left upper lobe cavitary lesion currently measures 6.9 x 6.9 cm which is slightly larger than on the recent prior. There is persisting hazy opacity around this lesion extending into the hilum. There are some new reticulated opacities in both lung bases. Pleural spaces: Unremarkable. No pleural effusion. No pneumothorax. Heart/Mediastinum: Unremarkable. No cardiomegaly. Bones/joints: Unremarkable. XR/XR chest 2V* [id number] IMPRESSION: 1. Persisting and slightly increased left upper lobe cavitary lesion containing a small fluid. 2. There are new hazy and reticulated opacities in the lung bases.
[2024-12-05 22:02] VITALS: BP 113/62; PULSE 100; RESP 18; O2SAT 93
--- NOTE | 2024-12-05 22:05 | W.ED.GENADLT ---
HPI - General Adult General: Chief complaint: Upper Respiratory Infection Stated complaint: Has Pneumonia\Dr sent to Admit Time Seen by Provider: 12/05/24 21:01 History of Present Illness: 58yo M w/cc of fever, chills, shortness of breath for one month or more. Patient is tachycardic with mildly increased respirations and mildly diaphoretic; he states he has been feeling quite unwell. Patient has recently been diagnosed with a left lung cavitary lesion. Today, he had CT imaging done at an outside facility and had a consultation with the cardiothoracic surgeon regarding the cavitary lesion. CT imaging appeared to show a new consolidation in the left lung. Patient has been on 3 antibiotics including doxycycline, amoxicillin and put on a low-dose Levaquin on an outpatient basis in the past 1 month. Patient has a history of COPD and has wheezing on exam, states he has been using his inhalers more often. He denies chest pain or chest pressure at this time though he does have some pain with respirations and coughing. Patient has not had hemoptysis, lower extremity swelling or syncope. Related Data Home Medications ?Medication ?Instructions ?Recorded ?Confirmed cholecalciferol (vitamin D3) 25 25 mcg PO DAILY ##0 12/21/20 12/01/24 mcg (1,000 unit) capsule (Vitamin D3) cyanocobalamin (vitamin B-12) 1,000 mcg PO DAILY 01/02/22 12/01/24 1,000 mcg tablet (Vitamin B-12) citalopram 40 mg tablet 40 mg PO DAILY 10/27/24 12/01/24 cyclobenzaprine 5 mg tablet 5 mg PO DAILY 10/27/24 12/01/24 gabapentin 800 mg tablet 800 mg PO TID 10/27/24 12/01/24 metoprolol tartrate 25 mg tablet 25 mg PO DAILY 10/27/24 12/01/24 ramelteon 8 mg tablet 8 mg PO BEDTIME 10/27/24 12/01/24 albuterol sulfate 1.25 mg/3 mL 1.25 mg inhalation Q6H 11/15/24 12/01/24 solution for nebulization atovaquone 750 mg/5 mL oral 750 mg PO DAILY 11/15/24 12/01/24 suspension budesonide 160 mcg-glycopyr 9 2 inh inhalation BID 11/15/24 12/01/24 mcg-formot 4.8 mcg/actuation HFA inhaler (Breztri Aerosphere) prednisone 20 mg tablet 20 mg PO PRN PRN joint pain flare 11/15/24 12/01/24 Previous Rx's ?Medication ?Instructions ?Recorded glucometer testing kit #1 ea 11/13/20 hydrocortisone 1 % lotion 1 applic topical DAILY PRN skin 08/29/21 (Dermarest Eczema (hydrocortisone)) irritation #120 mL test strips #100 ea 09/11/21 aspirin 81 mg chewable tablet 1 tab PO DAILY #90 tabs 01/03/22 ketoconazole 2 % shampoo 1 applic topical .2x weekly #120 mL 01/14/22 clobetasol 0.05 % scalp solution 1 applic topical DAILY #50 mL 04/24/22 nitroglycerin 0.4 mg sublingual 0.4 mg sublingual Q5M PRN chest 04/25/22 tablet pain 30 days #30 tabs hydrocortisone 2.5 % topical cream 1 applic topical BID PRN skin 04/30/22 irritation #30 grams diabetic shoes with 3 inserts #1 ea 09/19/22 lisinopril 20 mg tablet 20 mg PO BID 90 days #180 tabs 03/03/23 ezetimibe 10 mg tablet 10 mg PO DAILY #90 tabs 06/08/23 albuterol sulfate 90 mcg/actuation 2 puff inhalation Q4H PRN 01/18/24 aerosol inhaler Shortness Of Breath 30 days #8.5 grams pantoprazole 40 mg tablet,delayed 40 mg PO DAILY #90 tabs 02/02/24 release Diabetic Shoes #1 ea 02/18/24 ethambutol 400 mg tablet 1,000 mg (2.5 x 400 mg) PO QPM 90 08/10/24 days #225 tabs rifampin 300 mg capsule 600 mg (2 x 300 mg) PO QAM 30 days 08/10/24 #60 caps apremilast 30 mg tablet (Otezla) 30 mg PO BID #60 tabs 08/15/24 prednisone 20 mg tablet 20 mg PO DAILY joint pain flare 09/05/24 #90 tabs ipratropium 0.5 mg-albuterol 3 mg 3 ml inhalation Q6H 30 days #90 mL 11/07/24 (2.5 mg base)/3 mL nebulization soln nicotine 21 mg/24 hr daily 1 patch transdermal DAILY #28 ea 11/08/24 transdermal patch roflumilast 250 mcg tablet 250 mcg PO DAILY 4 weeks #30 tabs 11/08/24 (Daliresp) tocilizumab 162 mg/0.9 mL 162 mg (0.9 mL) SUBCUT Q7D #3.6 mL 11/10/24 subcutaneous syringe (Actemra) sulfamethoxazole 800 1 tab PO BID 10 days #20 tabs 11/15/24 mg-trimethoprim 160 mg tablet (Bactrim DS) hydroxychloroquine 200 mg tablet 200 mg PO BID #180 tabs 11/17/24 oxycodone-acetaminophen 7.5 mg-325 1 tab PO QID PRN pain 7 days #28 11/21/24 mg tablet tabs prasugrel HCl 10 mg tablet See Rx Instructions .Route 11/28/24 .COMPLEX #90 tabs cam boot, left #1 ea 11/29/24 levofloxacin 250 mg tablet 250 mg PO DAILY #5 tabs 12/01/24 prednisone 20 mg tablet 20 mg PO DAILY #20 tabs 12/01/24 Allergies Allergy/AdvReac Type Severity Reaction Status Date / Time venom-wasp Allergy Severe ALGY-Hives Verified 12/01/24 10:57 Alpha-Gal Allergy Unknown Verified 12/01/24 10:57 (Ghzzyycch-Lcibz-3,3-Gala [facility] ED PFSH: Medical History COPD with exacerbation Occlusion of left vertebral artery [facility] 08/10/2024 Suspected Chronically Occluded Distal Left Vertebral Artery Wheezing Pneumonia COPD exacerbation Plaque psoriasis Seronegative rheumatoid arthritis of both hands Hypertension PAD (peripheral artery disease) Chronic kidney disease Dyslipidemia CAD (coronary artery disease) Psoriatic arthritis Anxiety Severe tobacco use disorder Alpha galactosidase deficiency Mycobacterium avium complex Immunization counseling High risk medication use Rheumatoid arthritis Insomnia Hiatal hernia Gastritis and duodenitis Acid reflux Diverticulosis PCK (polycystic kidney disease) Positive ANASTASIA (antinuclear antibody) Polymyalgia rheumatica CHF (congestive heart failure) Adrenal insufficiency Chronic use of steroids Acute kidney injury Sepsis Right forearm injury Elevated platelet count COPD (chronic obstructive pulmonary disease) Type 2 diabetes mellitus Lupus Fibromyalgia Surgical History Status post insertion of iliac artery stent Bilateral History of colonoscopy with polypectomy 2011 Status post hernia repair Status post cholecystectomy Status post angioplasty with stent Dr Kay 2014 Family History Father Diabetes CAD (coronary artery disease) Lung disease Family/Other Dementia Lung disease Sister Suicide Mother Crohn's disease Other Autoimmune disease Chronic kidney disease (CKD) Hyperlipidemia Hypertension Thyroid disease Denies family history of Liver disease Aneurysm Clotting disorder Psychiatric illness Bleeding disorder Cancer Stroke Social History Smoking and tobacco/nicotine status: never used tobacco/nicotine Second hand smoke exposure: No Alcohol intake: former Substance/Drug Use: never Lives independently: Yes Household members: none Marital status: Current occupational status: disabled Do you think of yourself as: Straight/Heterosexual Current gender identity: Male Physical Exam Narrative: EXAM NARRATIVE: Vitals were reviewed. Patient is mildly diaphoretic and appears ill. He is normotensive but mildly tachycardic. Patient has diffuse wheezing in all lung dailey and rhonchi on the left side. He remains above 92% on room air. Patient has a soft, nondistended nontender abdomen. There is no lower extremity edema or asymmetry. Course Vital Signs: Vital signs: Vital Signs Temperature 98.8 F 12/06/24 04:00 Pulse Rate 115 H 12/06/24 04:47 Respiratory Rate 20 H 12/06/24 04:47 Blood Pressure 128/72 12/06/24 04:00 Pulse Oximetry 95 12/06/24 04:47 Oxygen Delivery Me thod Room Air 12/06/24 04:47 MDM - General Adult Medical Decision Making 58-year-old male presenting with a chief complaint of 1 month of intermittent fever, chills, malaise, completed at least 2 courses of antibiotics in the last month, started on 250mg of levaquin outpatient recently. Referred by cardiothoracic surgery today for superimposed pna. Differential diagnosis includes, but is limited to, pneumonia, empyema, lung abscess, sepsis, pneumothorax, other. Patient was treated with DuoNeb for diffuse wheezing. He was eval lab work including CBC, CMP, procalcitonin, lactic acid, UA, chest x-ray. Patient was treated with IV fluids, IV Unasyn and vancomycin. Patient has an elevated white blood cell count and procalcitonin though lactic acid is wnl. He is not anemic. Patient does have elevated creatinine but this is comparable to previous; he has no CKD. Patient was admitted for failure of outpatient treatment, Lab Data 12/05/24 21:57 12/05/24 21:57 Radiology Impressions Chest X-Ray 12/05/24 21:14 IMPRESSION: 1. Persisting and slightly increased left upper lobe cavitary lesion containing a small fluid. 2. There are new hazy and reticulated opacities in the lung bases. Laboratory Results WBC 20.54 10^3/uL (3.29-11.43) H 12/05/24 21:57 RBC 4.40 10^6/uL (3.85-5.65) 12/05/24 21:57 Hgb 14.10 g/dL (11.27-16.99) 12/05/24 21:57 Hct 41.9 % (37-53) 12/05/24 21:57 MCV 95.2 fl (82-101) 12/05/24 21:57 MCH 32.0 pg (27-33) 12/05/24 21:57 MCHC 33.7 g/dL (30-55) 12/05/24 21:57 RDW 13.9 % (12.1-15.1) 12/05/24 21:57 Plt Count 208 10^3/cmm (157-399) 12/05/24 21:57 MPV 9.1 fL (7.4-10.4) 12/05/24 21:57 Neut % (Auto) 90.9 % 12/05/24 21:57 Lymph % (Auto) 2.1 % 12/05/24 21:57 Ransom % (Auto) 5.4 % 12/05/24 21:57 Eos % (Auto) 0.7 % 12/05/24 21:57 Baso % (Auto) 0.2 % 12/05/24 21:57 Neut # (Auto) 18.67 10^3/uL (1.8-7.7) H 12/05/24 21:57 Lymph # (Auto) 0.4 10^3/uL (0.8-4.8) L 10/20/25 21:57 Ransom # (Auto) 1.1 10^3/uL (0.2-0.9) H 12/05/24 21:57 Eos # (Auto) 0.1 10^3/uL (0.0-0.8) 12/05/24 21:57 Baso # (Auto) 0.1 10^3/uL (0.0-0.1) 12/05/24 21:57 Nucleated RBC % (auto) 0 % 12/05/24 21:57 Nucleated RBCs # 0.0 /100WBC 12/05/24 21:57 Sodium 135 mmol/L (136-145) L 12/05/24 21:57 Potassium 4.5 mmol/L (3.5-5.1) 12/05/24 21:57 Chloride 100 mmol/L (98-107) 12/05/24 21:57 Carbon Dioxide 19 mmol/L (22-29) L 12/05/24 21:57 Anion Gap 20.5 (5-19) H 12/05/24 21:57 BUN 33 mg/dL (6-20) H 12/05/24 21:57 Creatinine 3.0 mg/dL (0.7-1.2) H 12/05/24 21:57 GFR Calculation 21.7 mL/min (90-130) L 12/05/24 21:57 Glucose 93 mg/dL (65-115) 12/05/24 21:57 Calculated Osmolality 287 mOsm/kg (285-295) 12/05/24 21:57 Lactic Acid 1.2 mmol/L (0.5-2.2) 12/05/24 21:57 Calcium 8.9 mg/dL (8.5-10.5) 12/05/24 21:57 Total Bilirubin 0.2 mg/dL (0.15-1.2) 12/05/24 21:57 AST 20 U/L (0-40) 12/05/24 21:57 ALT 15 U/L (0-41) 12/05/24 21:57 Alkaline Phosphatase 61 U/L (40-130) 12/05/24 21:57 Total Protein 6.0 g/dL (6.6-8.7) L 12/05/24 21:57 Albumin 3.7 g/dL (3.5-5.2) 12/05/24 21:57 Globulin 2.3 g/dL (1.3-4.6) 12/05/24 21:57 Procalcitonin 0.64 ng/mL (0-0.5) H 12/05/24 21:57 Influenza A (PCR) Negative (Negative) 12/05/24 21:59 Influenza Type B (PCR) Negative (Negative) 12/05/24 21:59 RSV (PCR) Negative (Negative) 12/05/24 21:59 SARS-CoV-2 (PCR) Negative (Negative) 12/05/24 21:59 All radiology interpretation(s) finalized by discharge Discharge Plan Discharge Patient Disposition: Admitted As Inpatient Admit Provider: Jam Solo Clinical Impression: Pneumonia, COPD with acute exacerbation, Pulmonary cavitary lesion Condition: Stable Coding Level of Care Code ED Mineral[employer] Teacher for David Wick
[2024-12-05 22:08] LABS: Hematocrit 41.9 % (37-53); Hemoglobin 14.10 g/dL (11.27-16.99); Mean Corpuscular HGB Conc 33.7 g/dL (30-55); Mean Corpuscular Hemoglobin 32.0 pg (27-33); Mean Corpuscular Volume 95.2 fl (82-101); Nucleated Red Blood Cells % 0 %; Platelet Count 208 10^3/cmm (157-399); Red Blood Count 4.40 10^6/uL (3.85-5.65); White Blood Count 20.54 10^3/uL (3.29-11.43)
[2024-12-05 22:28] LABS: Alanine Aminotransferase 15 U/L (0-41); Albumin Level 3.7 g/dL (3.5-5.2); Alkaline Phosphatase 61 U/L (40-130); Anion Gap 20.5 (5-19); Aspartate Amino Transferase 20 U/L (0-40); Blood Urea Nitrogen 33 mg/dL (6-20); Calcium 8.9 mg/dL (8.5-10.5); Carbon Dioxide 19 mmol/L (22-29); Chloride 100 mmol/L (98-107); Creatinine Clr Calc Pharmacy 30.4406; Globulin 2.3 g/dL (1.3-4.6); Glucose 93 mg/dL (65-115); Osmolality Calculated 287 mOsm/kg (285-295); Potassium 4.5 mmol/L (3.5-5.1); Sodium 135 mmol/L (136-145); Total Protein 6.0 g/dL (6.6-8.7)
[2024-12-05 22:29] LABS: Lactic Sepsis W/Reflex 1.2 mmol/L (0.5-2.2)
[2024-12-05 22:31] VITALS: PULSE 90; RESP 18; O2SAT 94
[2024-12-05 22:35] LABS: Procalcitonin 0.64 ng/mL (0-0.5)
[2024-12-05 22:51] LABS: Respiratory Syncytial Virus Ce NEGATIVE (Negative); SARS-CoV-2 PCR NEGATIVE (Negative)
[2024-12-05 22:55] VITALS: BP 116/76; PULSE 106; O2SAT 92
[2024-12-05 23:00] VITALS: BP 110/72; PULSE 105; O2SAT 92
[2024-12-05 23:59] VITALS: BMI 24.4
[2024-12-06] VITALS (13 sets, daily range): BP systolic 108–137; BP diastolic 68–84; PULSE 82–133; RESP 16–22; TEMP 36.6–37.1; O2SAT 90–95
--- NOTE | 2024-12-06 00:38 | PM.HP ---
Providers/Chief Complaint Admitting Physician: Jam Solo Primary Care Provider: Lorie Mccormack NP Chief Complaint: Has Pneumonia\Dr sent to Admit History of Present Illness Arelis Hardin is a 58 year old gentleman with a history of chronic obstructive pulmonary disease (COPD), psoriasis, coronary artery disease (CAD), peripheral artery disease (PAD), chronic kidney disease (CKD), rheumatoid arthritis, congestive heart failure (CHF), adrenal insufficiency, type 2 diabetes mellitus (DM2), systemic lupus erythematosus (SLE), and hypertension (HTN), as well as a history of Mycobacterium avium complex (MAC) infection. 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 Presents due to worsening cough producing yellow phlegm at the request of his cardiothoracic surgeon with recommendation for admission for intravenous (IV) antibiotics for presumed superimposed secondary pneumonia. Reports fevers over the past two days (unable to get temperature below 99?F). Denies hemoptysis. Denies nausea, vomiting, or diarrhea. Denies rashes. Denies blood in urine or stools or melena. Emergency department (ED) findings included leukocytosis 20.54 and sinus tachycardia (heart rate 101). Chest X-ray showed new hazy and reticular opacities in the lung bases, with a persisting and slightly increased left upper lobe cavity lesion containing small fluid. ED vital signs: blood pressure 108/77 mmHg, heart rate 101 bpm, respiratory rate 18, temperature 98.1?F, oxygen saturation 95% on room air. He remains on MAC-directed therapy (ethambutol and atovaquone) and on actemra (tocilizumab) for rheumatoid arthritis; COPD medications were recently adjusted by pulmonology. He was recently started on chronic doxycycline. Review of Systems Const: Reports: fever(s) and malaise ENMT: Denies: throat pain Card: Denies: chest pain, edema, pre-syncope or dyspnea on exertion Resp: Reports: dyspnea, productive cough and change in phlegm color; Denies: hemoptysis GI: Denies: abdominal pain, nausea, vomiting, diarrhea, constipation, hematochezia or melena : Denies: flank pain, difficulty urinating, urinary frequency or hematuria Musc: Denies: back pain, joint swelling or joint redness Skin/Breast: Denies: rash or new lesions Neuro: Denies: headache(s) or confusion Medications/Allergies Home Medications ?Medication ?Instructions ?Recorded ?Confirmed ?Last Taken ?Type glucometer testing kit #1 ea 11/13/20 12/01/24 Unknown Rx cholecalciferol (vitamin D3) 25 25 mcg PO DAILY ##0 12/21/20 12/01/24 11/01/24 History mcg (1,000 unit) capsule (Vitamin D3) hydrocortisone 1 % lotion 1 applic topical DAILY PRN skin 08/29/21 12/01/24 11/08/24 Rx (Dermarest Eczema (hydrocortisone)) irritation #120 mL test strips #100 ea 09/11/21 12/01/24 Unknown Rx cyanocobalamin (vitamin B-12) 1,000 mcg PO DAILY 01/02/22 12/01/24 11/01/24 History 1,000 mcg tablet (Vitamin B-12) aspirin 81 mg chewable tablet 1 tab PO DAILY #90 tabs 01/03/22 12/01/24 11/01/24 Rx ketoconazole 2 % shampoo 1 applic topical .2x weekly #120 mL 01/14/22 12/01/24 11/12/24 Rx clobetasol 0.05 % scalp solution 1 applic topical DAILY #50 mL 04/24/22 12/01/24 11/08/24 Rx nitroglycerin 0.4 mg sublingual 0.4 mg sublingual Q5M PRN chest 04/25/22 12/01/24 11/14/24 Rx tablet pain 30 days #30 tabs hydrocortisone 2.5 % topical cream 1 applic topical BID PRN skin 04/30/22 12/01/24 11/08/24 Rx irritation #30 grams diabetic shoes with 3 inserts #1 ea 09/19/22 12/01/24 Unknown Rx lisinopril 20 mg tablet 20 mg PO BID 90 days #180 tabs 03/03/23 12/01/24 11/15/24 Rx ezetimibe 10 mg tablet 10 mg PO DAILY #90 tabs 06/08/23 12/01/24 11/14/24 Rx albuterol sulfate 90 mcg/actuation 2 puff inhalation Q4H PRN 01/18/24 12/01/24 11/14/24 Rx aerosol inhaler Shortness Of Breath 30 days #8.5 grams pantoprazole 40 mg tablet,delayed 40 mg PO DAILY #90 tabs 02/02/24 12/01/24 10/20/24 Rx release Diabetic Shoes #1 ea 02/18/24 12/01/24 Unknown Rx ethambutol 400 mg tablet 1,000 mg (2.5 x 400 mg) PO QPM 90 08/10/24 12/01/24 11/14/24 Rx days #225 tabs rifampin 300 mg capsule 600 mg (2 x 300 mg) PO QAM 30 days 08/10/24 12/01/24 11/14/24 Rx #60 caps apremilast 30 mg tablet (Otezla) 30 mg PO BID #60 tabs 08/15/24 12/01/24 11/15/24 Rx prednisone 20 mg tablet 20 mg PO DAILY joint pain flare 09/05/24 12/01/24 11/15/24 Rx #90 tabs citalopram 40 mg tablet 40 mg PO DAILY 10/27/24 12/01/24 11/15/24 History cyclobenzaprine 5 mg tablet 5 mg PO DAILY 10/27/24 12/01/24 11/14/24 History gabapentin 800 mg tablet 800 mg PO TID 10/27/24 12/01/24 11/15/24 History metoprolol tartrate 25 mg tablet 25 mg PO DAILY 10/27/24 12/01/24 11/15/24 History ramelteon 8 mg tablet 8 mg PO BEDTIME 10/27/24 12/01/24 11/14/24 History ipratropium 0.5 mg-albuterol 3 mg 3 ml inhalation Q6H 30 days #90 mL 11/07/24 12/01/24 11/14/24 Rx (2.5 mg base)/3 mL nebulization soln nicotine 21 mg/24 hr daily 1 patch transdermal DAILY #28 ea 11/08/24 12/01/24 Unknown Rx transdermal patch roflumilast 250 mcg tablet 250 mcg PO DAILY 4 weeks #30 tabs 11/08/24 12/01/24 Unknown Rx (Daliresp) tocilizumab 162 mg/0.9 mL 162 mg (0.9 mL) SUBCUT Q7D #3.6 mL 11/10/24 12/01/24 11/15/24 Rx subcutaneous syringe (Actemra) albuterol sulfate 1.25 mg/3 mL 1.25 mg inhalation Q6H 11/15/24 12/01/24 11/14/24 History solution for nebulization atovaquone 750 mg/5 mL oral 750 mg PO DAILY 11/15/24 12/01/24 10/26/24 History suspension budesonide 160 mcg-glycopyr 9 2 inh inhalation BID 11/15/24 12/01/24 11/14/24 History mcg-formot 4.8 mcg/actuation HFA inhaler (Breztri Aerosphere) prednisone 20 mg tablet 20 mg PO PRN PRN joint pain flare 11/15/24 12/01/24 Unknown History sulfamethoxazole 800 1 tab PO BID 10 days #20 tabs 11/15/24 12/01/24 Unknown Rx mg-trimethoprim 160 mg tablet (Bactrim DS) hydroxychloroquine 200 mg tablet 200 mg PO BID #180 tabs 11/17/24 12/01/24 Unknown Rx oxycodone-acetaminophen 7.5 mg-325 1 tab PO QID PRN pain 7 days #28 11/21/24 12/01/24 Unknown Rx mg tablet tabs prasugrel HCl 10 mg tablet See Rx Instructions .Route 11/28/24 12/01/24 Unknown Rx .COMPLEX #90 tabs cam boot, left #1 ea 11/29/24 12/01/24 Unknown Rx levofloxacin 250 mg tablet 250 mg PO DAILY #5 tabs 12/01/24 12/01/24 Unknown Rx prednisone 20 mg tablet 20 mg PO DAILY #20 tabs 12/01/24 12/01/24 Unknown Rx Allergies Allergy/AdvReac Type Severity Reaction Status Date / Time venom-wasp Allergy Severe ALGY-Hives Verified 12/01/24 10:57 Alpha-Gal Allergy Unknown Verified 12/01/24 10:57 ([id number]-[id number]-9,3-Gala PFSH Acute PFSH: Medical History COPD with exacerbation Occlusion of left vertebral artery MRA [facility] 08/10/2024 Suspected Chronically Occluded Distal Left Vertebral Artery Wheezing Pneumonia COPD exacerbation Plaque psoriasis Seronegative rheumatoid arthritis of both hands Hypertension PAD (peripheral artery disease) Chronic kidney disease Dyslipidemia CAD (coronary artery disease) Psoriatic arthritis Anxiety Severe tobacco use disorder Alpha galactosidase deficiency Mycobacterium avium complex Immunization counseling High risk medication use Rheumatoid arthritis Insomnia Hiatal hernia Gastritis and duodenitis Acid reflux Diverticulosis PCK (polycystic kidney disease) Positive ANASTASIA (antinuclear antibody) Polymyalgia rheumatica CHF (congestive heart failure) Adrenal insufficiency Chronic use of steroids Acute kidney injury Sepsis Right forearm injury Elevated platelet count COPD (chronic obstructive pulmonary disease) Type 2 diabetes mellitus Lupus Fibromyalgia Surgical History Status post insertion of iliac artery stent Bilateral History of colonoscopy with polypectomy 2011 Status post hernia repair Status post cholecystectomy Status post angioplasty with stent Dr Kay 2014 Family History Father Diabetes CAD (coronary artery disease) Lung disease Family/Other Dementia Lung disease Sister Suicide Mother Crohn's disease Other Autoimmune disease Chronic kidney disease (CKD) Hyperlipidemia Hypertension Thyroid disease Denies family history of Liver disease Aneurysm Clotting disorder Psychiatric illness Bleeding disorder Cancer Stroke Social History Smoking and tobacco/nicotine status: never used tobacco/nicotine Second hand smoke exposure: No Alcohol intake: former Substance/Drug Use: never Lives independently: Yes Household members: none Marital status: Current occupational status: disabled Do you think of yourself as: Straight/Heterosexual Current gender identity: Male Vitals/I&O/Wt Last Vital Signs Temp 98.1 F 12/05/24 20:45 Pulse 101 H 12/06/24 00:02 Resp 18 12/05/24 22:31 BP 108/77 12/06/24 00:02 Pulse Ox 95 12/06/24 00:02 O2 Del Method Room Air 12/05/24 23:59 12/05/24 12/05/24 12/06/24 14:59 22:59 06:59 Intake Total 1000 / 1000 Balance 1000 / 1000 Weight last 48 hrs Weight 81.647 kg Weight 81.647 kg Physical Exam Narrative: Accompanied by female family member Const: COMMON NORMALS: patient oriented x3 and alert GENERAL APPEARANCE: cooperative ORIENTATION/CONSCIOUSNESS: Yes awake HENMT: COMMON NORMALS: oropharynx normal Neck/C-Spine: COMMON NORMALS: no JVD Resp: AUSCULTATION: wheezes left lower Cardio: COMMON NORMALS: no JVD, regular rhythm, S1 normal heart sound present, S2 normal heart sound present and No murmurs present (Cardio) RHYTHM: regular rhythm HEART SOUNDS: S1 normal heart sound present and S2 normal heart sound present GI: COMMON NORMALS: Normal to inspection, nondistended, normoactive bowel sounds present, Soft to palpation and non-tender PALPATION: Yes Soft to palpation Extremity: COMMON NORMALS: no joint enlargement and no pedal edema Neuro: COMMON NORMALS: patient oriented x3 and moves all extremities SENSORIUM/ORIENTATION: Yes alert Skin: COMMON NORMALS: no rashes or lesions noted GENERAL SKIN EXAM: no rashes or lesions noted Quick SOFA Score: Respiratory Rate: 18 Blood Pressure: 108/77 John Coma Scale: 15 qSOFA Score: 0 If qSOFA score 2 or greater, continue: Blood Pressure Mean: 84 Bilirubin (mg/dl): 0.2 Platelets (x10?/ml): 208 Creatinine (mg/dl): 3.0 Evaluation: Current stage of sepsis: sepsis Sepsis stage criteria used: [facility] Sep-1 and Sepsis-3 Focused Exam: Vital signs: Temp Pulse Resp BP Pulse Ox O2 Del Method 12/06/24 00:02 101 H 108/77 95 12/05/24 23:59 Room Air 12/05/24 23:00 105 H 110/72 92 Room Air 12/05/24 22:55 106 H 116/76 92 12/05/24 22:31 90 18 94 Room Air 12/05/24 22:02 100 18 113/62 93 Room Air 12/05/24 20:45 98.1 F 115 H 20 H 110/63 92 Room Air Capillary refill: < 3 Seconds Skin exam: not diaphoretic and no mottling Date exam was performed: 12/06/24 Time exam was performed: 01:19 Sepsis Screen No Definite Risk 12/05/24, 23:00 Respiratory Rate, (12 - 18) 18 breaths/min 12/05/24, 22:31 Blood Pressure 108/77 mmHg Today, 00:02 John Coma Scale Score 15 12/05/24, 23:59 Quick SOFA Score 0 12/05/24, 23:00 SOFA Score: John Coma Scale Score 15 12/05/24, 23:59 Blood Pressure Mean 84 mmHg 12/05/24, 23:00 Total Bilirubin, (0.15-1.2) 0.2 mg/dL 12/05/24, 21:57 Platelet Count, (157-399) 208 10^3/cmm 12/05/24, 21:57 Creatinine, (0.7-1.2) 3.0 mg/dL H 12/05/24, 21:57 Data 12/05/24 21:57 12/05/24 21:57 A&P Assessment and plan 1. Pneumonia: Suspected superimposed bacterial pneumonia : Presentation with worsening productive cough, yellow sputum, fevers, leukocytosis, and chest X-ray with new hazy/reticular opacities in lung bases suggesting bacterial pneumonia superimposed on chronic lung infection. Possible sepsis, leukocytosis 20.54, sinus tachycardia 101, without severe sepsis or endorgan injury. Lactic acid not elevated at 1.2. Procalcitonin abnormal at 0.64. Reviewed vitals, CBC, CMP, prior sputum cultures, AFB. Reviewed respiratory viral panel. Chest x-ray. ED provider note, discussed with ED provider. Reviewed pulmonology note, ID note. - Start empiric IV Unasyn (ampicillin/sulbactam) and vancomycin. Monitor for risk of KAREN, C. difficile - Obtain sputum culture and follow up results - Collect urinary antigens (e.g., pneumococcal/Legionella) - Collect galactomannan and higt-[id number] - Consider pulmonology consultation in the morning - Consider bronchoscopy for bronchoalveolar lavage (BAL) - Consider infectious diseases consultation when available 2. 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 - Continue MAC medications -Resume follow-up with CT surgery for lobectomy 3. COPD (chronic obstructive pulmonary disease): Possible mild to moderate exacerbation. Budesonide and Neb treatments with DuoNeb in addition to antibiotics as above. Plan: Leukocytosis : ED white blood cell count 20.54 in the context of suspected infection. Sinus tachycardia : ED heart rate 101 bpm. Chronic kidney disease (CKD) : CKD with ED creatinine reported as 3. Rheumatoid arthritis: On Actemra at home. Hold for now. Hospitalization bundle : Admission planning and code status discussion documented. Requesting to confirm home medications. - Prepare admission/hospitalization; day team to assume care in the morning - Discussed code status; patient is agreeable to CPR if needed PDMP PDMP Reviewed: Not Reviewed Attestations Medical Necessity Statement*: Admission of over 2 midnights anticipated for assessment and management of pneumonia angioma and with underlying chronic fungal infection, cavitary lesion, COPD, CKD, additional comorbidities. and High MDM includes amount and/or complexity of data reviewed/ordered [ previous or external records, resulted lab(s)/test(s), ordered lab(s)/test(s) and other healthcare professional discussion] and described risk of complication, morbidity or mortality of management as documented Diagnoses Pneumonia J18.9 Pulmonary cavitary lesion J98.4 COPD (chronic obstructive pulmonary disease) J44.9
[2024-12-06] MEDS: ampicillin-sulbactam 1.5 GM in sodium chloride 0.9% (plus) 50 ML IV ×2 (01:38→12:06)
[2024-12-06] MEDS: vancomycin 1,750 MG/350 ML PIGGYBACK 175 MG IV (02:00)
[2024-12-06] MEDS: guaiFENesin-dextromethorphan UDC 10 mL PO (03:35)
--- NOTE | 2024-12-06 06:30 | PHA.VACGOAL ---
Vancomycin Goal - Goal Vancomycin Goal:: 15-20 mg/L Vancomycin Indication:: Pneumonia - Therapy Day of therpy:: Day []of [] . Actual body weight (kg): 180 lb - Data Labs: WBC 20.54 10^3/uL (3.29-11.43) H 12/05/24 21:57 RBC 4.40 10^6/uL (3.85-5.65) 12/05/24 21:57 Hgb 14.10 g/dL (11.27-16.99) 12/05/24 21:57 Hct 41.9 % (37-53) 12/05/24 21:57 MCV 95.2 fl (82-101) 12/05/24 21:57 MCH 32.0 pg (27-33) 12/05/24 21:57 MCHC 33.7 g/dL (30-55) 12/05/24 21:57 RDW 13.9 % (12.1-15.1) 12/05/24 21:57 Sodium 135 mmol/L (136-145) L 12/05/24 21:57 Potassium 4.5 mmol/L (3.5-5.1) 12/05/24 21:57 Chloride 100 mmol/L (98-107) 12/05/24 21:57 Carbon Dioxide 19 mmol/L (22-29) L 12/05/24 21:57 Anion Gap 20.5 (5-19) H 12/05/24 21:57 BUN 33 mg/dL (6-20) H 12/05/24 21:57 Creatinine 3.0 mg/dL (0.7-1.2) H 12/05/24 21:57 GFR Calculation 21.7 mL/min (90-130) L 12/05/24 21:57 Treatment plan:: new consult Regimen:: 1250 Q 24H
--- NOTE | 2024-12-06 07:32 | ECG_ITS ---
[facility] Test Date: 2024-12-06 Pat Name: Arelis Hardin Department: Room: 273 Gender: Male Election Watcher: : 1965 Requested By: Jam Solo Order Number: [id number] Paola MD: Sarah Kay M.D. Measurements Intervals [place] Rate: 121 P: 27 NC: 142 QRS: 72 QRSD: 90 T: 57 QT: 292 QTc: 415 Interpretive Statements SINUS TACHYCARDIA SEPTAL MYOCARDIAL INFARCTION , PROBABLY OLD [40+ ms Q WAVE IN V1/V2] Compared to ECG 07/21/2023 01:05:22 Myocardial infarct finding now present Sinus rhythm no longer present Sinus arrhythmia no longer present Electronically Signed On 12-06-2024 15:36:28 CDT by Sarah Kay M.D. [email or web address]
[2024-12-06] MEDS: metoprolol succinate ER (24 HR) 25 mg Tablet PO (09:43)
--- NOTE | 2024-12-06 09:54 | PC.CHAP ---
Pastoral Care Encounter/Spiritual Assessment Type of Contact [] Declined insurance investigator visit [] Patient/Family/Request visit [] Outpatient visit [] Follow-up visit [] Physician referral [] Code/Alert [] Routine visit [] Staff referral [] Actively dying [] Patient sleeping [] Family support [] [] Out of room [] Palliative care [] [x] Receiving care in room [] Pre-surgical visit [] Trauma [] Long length of stay [] ICU visit [] Other: Relational/Emotional Strength [] Patient feels connected with others/family/visitors/staff [] Distress [] Loneliness/isolation [] Abandonment Spirituality of Patient [] Person of Jayla [] Attends Religion of their Jayla [] Believes in Prayer [] Reads Bible or Jainism materials [] There are Spiritual issues to be addressed Sounding Device Operator Interventions [] Prayer [] Active listening [] Non-anxious presence [] Spiritual/emotional support [] Crisis/trauma care [] Spiritual counseling [] Bereavement support [] Provided bereavement packet [] Provided Bible/devotional materials [] Provided toy/stuffed animal, coloring book to patient or family member [] Provided Communion [] Anointing/[place] [] Salvation [] Completed spiritual assessment [] Other: Impact on Illness or Injury [] Angry [] Fearful [] Anxious [] Often cries [] Exhaustion [] Unable to work [] Unable to attend lutheran [] Unable to walk/stand [] Unable to read [] Unable to drive [] Unable to eat/drink [] Unable to sleep [] Unable to be with family [] Patient intubated [] Other: Summary Time spent with patient
[2024-12-06 12:02] LABS: Glucose Urine UA Negative (Normal); Nitrate Urine Negative (Negative); Specific Gravity, Urine 1.010 (1.005-1.030)
--- NOTE | 2024-12-06 12:58 | ECG_ITS ---
[facility] Test Date: 2024-12-06 Pat Name: Arelis Hardin Department: Room: 273 Gender: Male Tailer In: : 1965 Requested By: Dharmesh Singh Order Number: [id number] Paola MD: Sarah Kay M.D. Measurements Intervals [place] Rate: 131 P: 72 SD: 143 QRS: 103 QRSD: 80 T: 25 QT: 269 QTc: 397 Interpretive Statements SINUS TACHYCARDIA RIGHT AXIS DEVIATION [QRS AXIS > 100] Compared to ECG 12/06/2024 07:38:02 Right-axis deviation now present Myocardial infarct finding no longer present Electronically Signed On 12-06-2024 19:37:09 CDT by Sarah Kay M.D. [id number]
[2024-12-06 13:17] LABS: Add Urine Microscopic? YES
--- NOTE | 2024-12-06 14:26 | PC.NURSE ---
Pt complains of SOB and chest pain. Appears visibly SOB and redness to face. HR 120's to 140's. RT contacted and they came to bedside to do a breathing treatment. Pt was placed on 1.5L NC as O2 was 85%. Pt O2 unimproved and is a mouth breather. Pt placed on 3L oxymask. PO Metoprolol 25 mg ER given and ABG ordered per Dr. Dunne.
[2024-12-06 14:40] LABS: ABG PCO2 33.7 mmHg (35-45); ABG PH Result 7.37 (7.35-7.45); Alveolar-Arterial Oxygen Gradi 3.7 mmHg (5-10); Arterial Blood Gas Hematocrit 42.3 % (42-52); Blood Gas LPM 3.0 %; Blood Gas Operator Identificat AMH; Blood Gas Sample Site Brachial, right; Blood Gas Sample Type Arterial; Carboxyhemoglobin 0.9 %THgb (0.4-20.1); Glucose Level-ABG 98.0 mg/dL (70-115); HCO3 ABG 19.5 mmol/L (22-26); Ionized Calcium Level - ABG 1.2 mmol/L (1.1-1.4); Methemoglobin 1.3 % (0.4-1.5); Oxygen Saturation ABG 96.4; PO2 ABG 78.2 mmHg (80.0-100.0); Potassium Level - ABG 4.3 mmol/L (3.5-5.0); Sodium Level - ABG 136.0 mmol/L (131-143)
--- NOTE | 2024-12-06 17:26 | P.PN_ITS ---
Subjective 2 Subjective: 58-year-old male states yester day he was at [facility] and he had an MRI done of his lung by his cardiothoracic surgeon who showed him that he had pneumonia adjacent to his left lung cavitation. His physician wanted to admit him there but patient did not want to be admitted that for from home. He states it was a 6-1/2-hour roundtrip. Patient has had headache fever yellow phlegm for the past month. He cut his tobacco use from 2 packs/day to 1/2 pack/day in the last 2 weeks due to difficult to afford the medication and hard to breathe all the time. Patient has had fevers chills sweats. He is not on oxygen at home patient denies hemoptysis but is coughing up yellow phlegm. Patient reports mild swelling of the left leg and little bit of pain. He states his daughter had a PE found at the time of her autopsy. She with a ruptured aneurysm during the stress of pancreatitis. She also was found to have a clot in her lung. Patient himself has never had a blood clot in his lung or leg Patient states he establish care with Dr. Steward last month so he has a pourer buggy ladle here in town. He is wondering if she could see him while he is here in the hospital his daughter Ashia is his next of kin Vitals/I&O/Wt Last Vital Signs Temp 98.2 F 12/06/24 15:23 Pulse 122 H 12/06/24 15:23 Resp 20 H 12/06/24 15:23 BP 130/84 12/06/24 15:23 Pulse Ox 90 12/06/24 13:14 O2 Del Method Nasal Cannula 12/06/24 15:23 O2 Flow Rate 94 12/06/24 15:23 12/06/24 12/06/24 12/06/24 06:59 14:59 22:59 Intake Total 2347.5 / 2347.5 1290 / 1290 Output Total 450 / 450 400 / 400 500 / 900 Balance 1897.5 / 1897.5 890 / 890 -500 / 390 Weight last 48 hrs Weight 81.647 kg Weight 81.647 kg Weight 81.647 kg Physical Exam 2 Narrative: General well-developed well-nourished male obvious tachypnea and tachycardia he has moderate work of breathing CV regular rate and rhythm Lungs prolonged x-ray phase crackles heard in the left upper lung field Abdomen positive bowel tones soft nontender Calves no tenderness cords Data 12/05/24 21:57 12/05/24 21:57 Micro: Microbiology 12/06/24 04:13 Legionella Urinary Antigen - Final Urine,Voided Bacterial Antigens - Final 12/06/24 03:38 Gram Stain - Final Sputum - Expectorated Sputum 12/06/24 01:17 Blood Culture - Preliminary Blood SPECIMEN COLLECTED 12/06/24 01:22 Blood Culture - Preliminary Blood SPECIMEN COLLECTED A&P Assessment and plan 1. Pneumonia: Suspected superimposed bacterial pneumonia : Presentation with worsening productive cough, yellow sputum, fevers, leukocytosis, and chest X-ray with new hazy/reticular opacities in lung bases suggesting bacterial pneumonia superimposed on chronic lung infection. Possible sepsis, leukocytosis 20.54, sinus tachycardia 101, without severe sepsis or endorgan injury. Lactic acid not elevated at 1.2. Procalcitonin abnormal at 0.64. Viral panel is negative patient is on multiple immunosuppressants which puts him at increased risk of his MAC infection. There is also question of possibly having Aspergillus. I have not started him on antifungal. I am going to consult his pourer buggy ladle. Patient was referred to [place] for left upper lobectomy but he tells me yesterday he was at [facility]. 2. 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 - Continue MAC medications -Pulmonary consult and then eventual follow-up with CT surgery for lobectomy 3. Centrilobular emphysema: Possible mild to moderate exacerbation. Budesonide and Neb treatments with DuoNeb in addition to antibiotics as above. Started the patient on Decadron 4 mg twice a day for COPD exacerbation with wheezing also start mucolytic with guaifenesin continue nebulizer Plan: Leukocytosis : ED white blood cell count 20.54 in the context of suspected infection. Sinus tachycardia : ED heart rate 101 bpm. Home meds restarted. Heart rate today 122. He is on several meds that there could be some withdrawal symptoms. He is also received IV fluids nebulizers and I will have steroids. DVT prophylaxis with Lovenox. Consider dimer study although workup would be difficult with abnormal chest x-ray and creatinine of 3 Chronic kidney disease (CKD) : CKD with ED creatinine reported as 3. Rheumatoid arthritis: On Actemra at home. Hold for now. Hospitalization bundle : Admission planning and code status discussion documented. Requesting to confirm home medications. - Prepare admission/hospitalization; day team to assume care in the morning - Discussed code status; patient is agreeable to CPR if needed PDMP PDMP Reviewed: Not Reviewed Attestations 2 Medical Necessity Statement*: Patient brandon admitted in the hospital with pneumonia and respiratory distress we will crier greater than 2 midnights in the hospital Coding Level of Care Code Acute Code for [facility] Fwd Diagnoses Pneumonia J18.9 Pulmonary cavitary lesion J98.4 Centrilobular emphysema J43.2 COPD type: emphysema Emphysema type: centrilobular Time Spent (min) 50
[2024-12-06] MEDS: oxyCODONE-APAP 5-325 mg Tablet 1 TAB PO (18:14)
[2024-12-07] VITALS (15 sets, daily range): BP systolic 110–165; BP diastolic 66–98; PULSE 87–114; RESP 17–24; TEMP 36.4–37.6; O2SAT 92–98
[2024-12-07] MEDS: ampicillin-sulbactam 1.5 GM in sodium chloride 0.9% (plus) 50 ML IV ×2 (00:49→13:57)
[2024-12-07] MEDS: oxyCODONE-APAP 5-325 mg Tablet 1 TAB PO ×3 (00:49→15:51)
[2024-12-07 05:28] LABS: Hematocrit 40.1 % (37-53); Hemoglobin 13.10 g/dL (11.27-16.99); Mean Corpuscular HGB Conc 32.7 g/dL (30-55); Mean Corpuscular Hemoglobin 32.0 pg (27-33); Mean Corpuscular Volume 98.0 fl (82-101); Nucleated Red Blood Cells % 0 %; Platelet Count 224 10^3/cmm (157-399); Red Blood Count 4.09 10^6/uL (3.85-5.65); White Blood Count 17.11 10^3/uL (3.29-11.43)
[2024-12-07] MEDS: CITALOPRAM 40 MG TABLET PO (05:39)
[2024-12-07] MEDS: metoprolol succinate ER (24 HR) 50 mg Tablet PO (05:40)
[2024-12-07 05:46] LABS: Anion Gap 20.5 (5-19); Blood Urea Nitrogen 23 mg/dL (6-20); Calcium 8.4 mg/dL (8.5-10.5); Carbon Dioxide 17 mmol/L (22-29); Chloride 105 mmol/L (98-107); Creatinine Clr Calc Pharmacy 36.5287; Glucose 56 mg/dL (65-115); Osmolality Calculated 287 mOsm/kg (285-295); Potassium 4.5 mmol/L (3.5-5.1); Sodium 138 mmol/L (136-145)
--- NOTE | 2024-12-07 09:26 | PC.CHAP ---
Pastoral Care Encounter/Spiritual Assessment Type of Contact [] Declined deckhand engineer visit [] Patient/Family/Request visit [] Outpatient visit [] Follow-up visit [] Physician referral [] Code/Alert [x] Routine visit [] Staff referral [] Actively dying [] Patient sleeping [] Family support [] [] Out of room [] Palliative care [] [] Receiving care in room [] Pre-surgical visit [] Trauma [] Long length of stay [] ICU visit [] Other: Relational/Emotional Strength x[] Patient feels connected with others/family/visitors/staff [x] Distress [] Loneliness/isolation [] Abandonment Spirituality of Patient [x] Person of Jayla [] Attends Temple of their Jayla [x] Believes in Prayer [] Reads Bible or Zoroastrianism materials [] There are Spiritual issues to be addressed Director Athletic Interventions [x] Prayer [x] Active listening [x] Non-anxious presence [x] Spiritual/emotional support [] Crisis/trauma care [] Spiritual counseling [] Bereavement support [] Provided bereavement packet [] Provided Bible/devotional materials [] Provided toy/stuffed animal, coloring book to patient or family member [] Provided Communion [] Anointing/[place] [] Salvation [x] Completed spiritual assessment [] Other: Impact on Illness or Injury [] Angry [] Fearful [] Anxious [] Often cries [] Exhaustion [] Unable to work [] Unable to attend jainism [] Unable to walk/stand [] Unable to read [] Unable to drive [] Unable to eat/drink [] Unable to sleep [] Unable to be with family [] Patient intubated [] Other: Summary Time spent with patient 5 min
[2024-12-07] MEDS: guaiFENesin-dextromethorphan UDC 10 mL PO (10:50)
--- NOTE | 2024-12-07 14:14 | PC.SOCIAL ---
*IMM* Patient received copy of Important Message from Medicare. Copy In Chart, dated and initialled.
--- NOTE | 2024-12-07 14:48 | PM.CONSULT ---
Providers/Reason For Consult Consulting Physician/Specialty*: Dr Chey Steward Reason for Consult*: Lung cavity Attending Physician: Dharmesh Dunne MD Primary Care Provider: Lorie Mccormack NP History of Present Illness History of Present Illness 58 year old male with pmhx of chronic obstructive pulmonary disease, Mycobacterium avium infection, nicotine addiction, polymyalgia rheumatica and possible evolving rheumatoid arthritis on actemra here for a follow up Patient has had bilateral upper lobe infiltrates persistent for the last 3 months with use of intermittent steroids. Suspicious for MAC infection. He is currently on Augmentin for his sinusitis as well as doxycycline that was recently started. Sputum AFB cultures and MTB PCR x 3 have been positive. A/G/GM BD glucan from serum to screen for fungal and PJP pneumonia ordered and all have been ordered by ID. Patient came in with increased shortness of breath, fever and found to have an abscess with FABIENNE cavity probable aspergillus Was seen by Thoracic surgery at [facility] and diagnosed with cavitary lung disease and pneumonia/abscess in the LLL. He was recommended admission with antibiotics and patient declined treatment and ended up coming to [facility] Currently he appears uncomfortable and more hypoxic Medications/Allergies Home Medications ?Medication ?Instructions ?Recorded ?Confirmed ?Last Taken ?Type glucometer testing kit #1 ea 11/13/20 12/06/24 Unknown Rx cholecalciferol (vitamin D3) 25 25 mcg PO DAILY ##0 12/21/20 12/06/24 12/04/24 History mcg (1,000 unit) capsule (Vitamin D3) test strips #100 ea 09/11/21 12/06/24 Unknown Rx cyanocobalamin (vitamin B-12) 1,000 mcg PO DAILY 01/02/22 12/06/24 11/01/24 History 1,000 mcg tablet (Vitamin B-12) aspirin 81 mg chewable tablet 1 tab PO DAILY #90 tabs 01/03/22 12/06/24 12/05/24 Rx ketoconazole 2 % shampoo 1 applic topical .2x weekly #120 mL 01/14/22 12/06/24 11/12/24 Rx clobetasol 0.05 % scalp solution 1 applic topical DAILY #50 mL 04/24/22 12/06/24 11/08/24 Rx diabetic shoes with 3 inserts #1 ea 09/19/22 12/06/24 Unknown Rx lisinopril 20 mg tablet 20 mg PO BID 90 days #180 tabs 03/03/23 12/06/24 12/05/24 Rx ezetimibe 10 mg tablet 10 mg PO DAILY #90 tabs 06/08/23 12/06/24 12/06/24 09:00 Rx albuterol sulfate 90 mcg/actuation 2 puff inhalation Q4H PRN 01/18/24 12/06/24 12/04/24 Rx aerosol inhaler Shortness Of Breath 30 days #8.5 grams pantoprazole 40 mg tablet,delayed 40 mg PO DAILY #90 tabs 02/02/24 12/06/24 12/05/24 Rx release Diabetic Shoes #1 ea 02/18/24 12/06/24 Unknown Rx ethambutol 400 mg tablet 1,000 mg (2.5 x 400 mg) PO QPM 90 08/10/24 12/06/24 12/04/24 19:00 Rx days #225 tabs rifampin 300 mg capsule 600 mg (2 x 300 mg) PO QAM 30 days 08/10/24 12/06/24 12/05/24 09:00 Rx #60 caps apremilast 30 mg tablet (Otezla) 30 mg PO BID #60 tabs 08/15/24 12/06/24 12/05/24 08:00 Rx prednisone 20 mg tablet 20 mg PO DAILY joint pain flare 09/05/24 12/06/24 11/15/24 Rx #90 tabs citalopram 40 mg tablet 40 mg PO DAILY 10/27/24 12/06/24 12/05/24 09:00 History gabapentin 800 mg tablet 800 mg PO TID 10/27/24 12/06/24 12/04/24 History ramelteon 8 mg tablet 8 mg PO BEDTIME 10/27/24 12/06/24 12/04/24 20:00 History ipratropium 0.5 mg-albuterol 3 mg 3 ml inhalation Q6H 30 days #90 mL 11/07/24 12/06/24 12/04/24 Rx (2.5 mg base)/3 mL nebulization soln nicotine 21 mg/24 hr daily 1 patch transdermal DAILY #28 ea 11/08/24 12/06/24 Unknown Rx transdermal patch roflumilast 250 mcg tablet 250 mcg PO DAILY 4 weeks #30 tabs 11/08/24 12/06/24 12/05/24 Rx (Daliresp) tocilizumab 162 mg/0.9 mL 162 mg (0.9 mL) SUBCUT Q7D #3.6 mL 11/10/24 12/06/24 11/15/24 Rx subcutaneous syringe (Actemra) atovaquone 750 mg/5 mL oral 750 mg PO DAILY 11/15/24 12/06/24 12/05/24 History suspension budesonide 160 mcg-glycopyr 9 2 inh inhalation BID 11/15/24 12/06/24 12/05/24 09:00 History mcg-formot 4.8 mcg/actuation HFA inhaler (Breztri Aerosphere) hydroxychloroquine 200 mg tablet 200 mg PO BID #180 tabs 11/17/24 12/06/24 12/05/24 09:00 Rx oxycodone-acetaminophen 7.5 mg-325 1 tab PO QID PRN pain 7 days #28 11/21/24 12/06/24 Unknown Rx mg tablet tabs prasugrel HCl 10 mg tablet See Rx Instructions .Route 11/28/24 12/06/24 12/05/24 Rx .COMPLEX #90 tabs cam boot, left #1 ea 11/29/24 12/06/24 Unknown Rx levofloxacin 250 mg tablet 250 mg PO DAILY #5 tabs 12/01/24 12/06/24 12/05/24 Rx cyclobenzaprine 10 mg tablet 10 mg PO TID 12/06/24 12/06/24 12/05/24 13:00 History fluocinolone 0.01 % scalp oil and See Rx Instructions .Route .COMPLEX 12/06/24 12/06/24 Unknown History shower cap latanoprost 0.005 % eye drops 1 drp ophthalmic (eye) QPM 12/06/24 12/06/24 Unknown History metoprolol succinate 50 mg 50 mg PO DAILY 12/06/24 12/06/24 12/05/24 History tablet,extended release 24 hr Allergies Allergy/AdvReac Type Severity Reaction Status Date / Time venom-wasp Allergy Severe ALGY-Hives Verified 12/01/24 10:57 Alpha-Gal Allergy Unknown Verified 12/01/24 10:57 (Lbqvydndn-Wffdu-6,3-Gala Current Medications Generic Name Dose Route Start Last Admin Trade Name Freq PRN Reason Stop Dose Admin Albuterol/Ipratropium 3 ml 12/06/24 02:00 12/07/24 14:08 Ipratropium-Albuterol 3 Ml Neb INHALATION 3 ml Q6H.RESP SAIDA Administration Aspirin 81 mg 12/07/24 05:00 12/07/24 05:41 Aspirin 81 Mg Chew Tablet PO 81 mg DAILY SAIDA Administration Budesonide 0.5 mg 12/06/24 08:00 12/07/24 07:49 Budesonide 0.5 Mg/2 Ml Neb INHALATION 0.5 mg BID.RESPIRATORY SAIDA Administration Citalopram Hydrobromide 40 mg 12/07/24 05:00 12/07/24 05:39 Citalopram 40 Mg Tablet PO 40 mg DAILY SAIDA Administration Dexamethasone 4 mg 12/06/24 17:20 12/07/24 05:41 Dexamethasone 4 Mg/Ml Inj IVP 4 mg BID SAIDA Administration Diltiazem HCl 60 mg 12/07/24 09:20 12/07/24 10:44 Diltiazem 30 Mg Tablet PO 60 mg Q6H SAIDA Administration Ezetimibe 10 mg 12/07/24 05:00 12/07/24 05:41 Ezetimibe 10 Mg Tablet PO 10 mg DAILY SAIDA Administration Ethambutol HCl 1,000 mg 12/06/24 18:00 12/06/24 18:15 Ethambutol 400 Mg Tablet PO 1,000 mg QPM SAIDA Administration Gabapentin 300 mg 12/07/24 05:00 12/07/24 05:41 Gabapentin 300 Mg Capsule PO 300 mg BID SAIDA Administration Guaifenesin 1,200 mg 12/07/24 05:00 12/07/24 05:40 Guaifenesin 600 Mg Tablet PO 1,200 mg BID SAIDA Administration Guaifenesin/Dextromethorphan 10 ml 12/06/24 03:19 12/07/24 10:50 Guaifenesin-Dextromethorphan Udc 10 Ml PO 10 ml Q4H PRN Administration COUGH Ampicillin Sodium/Sulbactam 50 mls @ 150 mls/hr 12/06/24 01:00 12/07/24 14:46 Sodium 1.5 gm/ Sodium Chloride IV Infused Q12H SAIDA Infusion Protocol Vancomycin HCl 1,250 mg in 250 mls @ 166.667 mls/hr 12/07/24 02:00 12/07/24 05:43 Vancocin IV Infused Q24H SAIDA Infusion Latanoprost 1 drop 12/06/24 18:00 12/06/24 18:16 Latanoprost 0.005% Op Soln 2.5 Ml Btl EYE-BOTH 1 drop QPM SAIDA Administration Metoprolol Succinate 50 mg 12/07/24 05:00 12/07/24 05:40 Metoprolol Succinate Er (24 Hr) 50 Mg Tablet PO 50 mg DAILY SAIDA Administration Nicotine 1 patch 12/06/24 14:42 12/07/24 05:39 Nicotine 21 Mg Patch TRANSDERMA 1 patch DAILY SAIDA Administration Non-Formulary Medication 8 mg 12/06/24 21:00 12/06/24 21:09 Ramelteon PO Not Given BEDTIME SAIDA Oxycodone/Acetaminophen 1 tab 12/06/24 17:59 12/07/24 08:59 Oxycodone-Apap 5-325 Mg Tablet PO 1 tab QID PRN Administration MODERATE PAIN Pantoprazole Sodium 40 mg 12/07/24 05:00 12/07/24 05:[address] 40 Mg Tablet PO 40 mg DAILY SAIDA Administration Prasugrel 10 mg 12/07/24 05:00 12/07/24 05:40 Prasugrel 10 Mg Tablet PO 10 mg DAILY SAIDA Administration Rifampin 600 mg 12/07/24 05:00 12/07/24 05:39 Rifampin 300 Mg Capsule PO 600 mg QAM SAIDA Administration Sodium Bicarbonate 650 mg 12/07/24 09:22 12/07/24 13:54 Sodium Bicarbonate 650 Mg Tablet PO 650 mg TID SAIDA Administration Vitamin D 1,000 unit 12/07/24 05:00 12/07/24 05:40 Cholecalciferol (Vitamin D3) 1,000 Unit Tablet PO 1,000 unit DAILY SAIDA Administration PFSH Acute PFSH: Medical History COPD with exacerbation Occlusion of left vertebral artery MRA [facility] 08/10/2024 Suspected Chronically Occluded Distal Left Vertebral Artery Wheezing Pneumonia COPD exacerbation Plaque psoriasis Seronegative rheumatoid arthritis of both hands Hypertension PAD (peripheral artery disease) Chronic kidney disease Dyslipidemia CAD (coronary artery disease) Psoriatic arthritis Anxiety Severe tobacco use disorder Alpha galactosidase deficiency Mycobacterium avium complex Immunization counseling High risk medication use Rheumatoid arthritis Insomnia Hiatal hernia Gastritis and duodenitis Acid reflux Diverticulosis PCK (polycystic kidney disease) Positive ANASTASIA (antinuclear antibody) Polymyalgia rheumatica CHF (congestive heart failure) Adrenal insufficiency Chronic use of steroids Acute kidney injury Sepsis Right forearm injury Elevated platelet count COPD (chronic obstructive pulmonary disease) Type 2 diabetes mellitus Lupus Fibromyalgia Surgical History Status post insertion of iliac artery stent Bilateral History of colonoscopy with polypectomy 2011 Status post hernia repair Status post cholecystectomy Status post angioplasty with stent Dr Kay 2014 Family History Father Diabetes CAD (coronary artery disease) Lung disease Family/Other Dementia Lung disease Sister Suicide Mother Crohn's disease Other Autoimmune disease Chronic kidney disease (CKD) Hyperlipidemia Hypertension Thyroid disease Denies family history of Liver disease Aneurysm Clotting disorder Psychiatric illness Bleeding disorder Cancer Stroke Social History Smoking and tobacco/nicotine status: never used tobacco/nicotine Second hand smoke exposure: No Alcohol intake: former Substance/Drug Use: never Lives independently: Yes Household members: none Marital status: Current occupational status: disabled Do you think of yourself as: Straight/Heterosexual Current gender identity: Male Vitals/I&O/Wt Last Vital Signs Temp 98.5 F 12/07/24 11:18 Pulse 98 12/07/24 14:20 Resp 20 H 12/07/24 14:00 BP 147/96 12/07/24 11:18 Pulse Ox 96 12/07/24 14:00 O2 Del Method Oxymask 12/07/24 14:00 O2 Flow Rate 3 12/07/24 14:00 FiO2 4 12/06/24 20:00 12/06/24 12/07/24 12/07/24 22:59 06:59 14:59 Intake Total 120 / 1410 300 / 1710 1290 / 1290 Output Total 1125 / 1525 250 / 1775 500 / 500 Balance -1005 / -115 50 / -65 790 / 790 Weight last 48 hrs Weight 183 lb 6 oz Weight 180 lb Weight 180 lb Weight 180 lb Physical Exam Narrative: per RN General: Tachycardic, tachypneic HEENT: conj clear, EOMI, PERRL Neck: supple Pulmonary: rhonchorous breath sounds L>R. Cardiovascular: Tachycardic Abdomen: soft, nt, nd, no r/g, Extremities: pulses +, no edema Skin: no rash Neurologic: grossly intact Agree with above exam Data 12/08/24 04:36 12/08/24 04:36 Micro: Microbiology 12/06/24 03:38 Gram Stain - Final Sputum - Expectorated Sputum Sputum Culture - Preliminary Gram Negative Rods 12/06/24 01:17 Blood Culture - Preliminary Blood NEGATIVE TO DATE 12/06/24 01:22 Blood Culture - Preliminary Blood NEGATIVE TO DATE 12/06/24 04:13 Legionella Urinary Antigen - Final Urine,Voided Bacterial Antigens - Final A&P Assessment and plan 1. COPD (chronic obstructive pulmonary disease): 2. Severe tobacco use disorder: Plan: # Left upper lobe cavitary pneumonia-differential includes MAC related expanding cavity versus aspergilloma. I reviewed the CT scan that showed a fungus ball appearing lesion inside the lung cavity suspicious for aspergilloma. Also has pneumonia/abscess developing below the fungal cavity suspicious of invasive aspergilloma Sputum growing GNRs, will add zosyn. Reviewed CT scan personallytoday and collaborated with Dr. Edwards and reviewed scans together. I think he would benefit from having a left upper lobectomy vs a CT guided catheter into the abscess to drain. Currently will be placed on voriconazole, vancomycin and zosyn. Discussed case with Dr Dunne # COPD group B, gold 1/chronic bronchitis- in acutee exacerbation DuoNebs 3 times a day. # Mycobacterium avium infection hx he is also on atovaquone and ethambutol for his underlying MAC infection. Follows up with Dr. Dr. Edwards #Immunocompromised # Rheumatoid arthritis Continue Actemra # Encounter for smoking cessation counseling Medical decision making level-high High MDM includes number and complexity of problems actively addressed during encounter, amount and/or complexity of data reviewed/ordered [ previous or external records, resulted lab(s)/test(s), ordered lab(s)/test(s), independent historian, independent test interpretation and other healthcare professional discussion] and described risk of complication, morbidity or mortality of management as documented This documentation was created by [employer] secretary office clerk software (known for inherent secretary office clerk error). Every effort was made to assure accuracy of secretary office clerk. Any obvious errors or omissions should be clarified with the author of the document PDMP PDMP Reviewed: Not Reviewed Coding Level of Care Code 31147 Diagnoses COPD (chronic obstructive pulmonary disease) J44.9 Severe tobacco use disorder F17.200
--- NOTE | 2024-12-07 16:40 | PM.PN ---
Subjective Subjective: 58-year-old male states 12/05/2024 he was at [facility] and he had an MRI done of his lung by his cardiothoracic surgeon who showed him that he had pneumonia adjacent to his left lung cavitation. His physician wanted to admit him there but patient did not want to be admitted that for from home. He states it was a 6-1/2-hour roundtrip. Patient has had headache fever yellow phlegm for the past month. He cut his tobacco use from 2 packs/day to 1/2 pack/day in the last 2 weeks due to difficult to afford the medication and hard to breathe all the time. Patient has had fevers chills sweats. He is not on oxygen at home patient denies hemoptysis but is coughing up yellow phlegm. Patient reports mild swelling of the left leg and little bit of pain. He states his daughter had a PE found at the time of her autopsy. She with a ruptured aneurysm during the stress of pancreatitis. She also was found to have a clot in her lung. Patient himself has never had a blood clot in his lung or leg his daughter Pauline Conn is his next of kin and present at bedside. Patient is seen with Dr. Nichelle Carpenter and nurse practitioner O[place]. Patient has increasing abscess cavity, tachycardia incompletely responding to fluid boluses and mild fever 101. Vitals/I&O/Wt Last Vital Signs Temp 98.7 F 12/07/24 15:35 Pulse 103 H 12/07/24 15:35 Resp 20 H 12/07/24 15:51 BP 165/89 12/07/24 15:35 Pulse Ox 96 12/07/24 15:35 O2 Del Method Oxymask 12/07/24 15:35 O2 Flow Rate 3 12/07/24 15:35 FiO2 4 12/06/24 20:00 12/07/24 12/07/24 12/07/24 06:59 14:59 22:59 Intake Total 300 / 1710 1290 / 1290 Output Total 250 / 1775 500 / 500 Balance 50 / -65 790 / 790 Weight last 48 hrs Weight 83.178 kg Weight 81.647 kg Weight 81.647 kg Weight 81.647 kg Physical Exam Narrative: General well-developed well-nourished male sleeping more comfortably this afternoon he has moderate work of breathing CV regular rate and rhythm Lungs prolonged x-ray phase crackles heard in the left upper lung field, some in the left midlung field and trace the bases the basilar crackles improved with deep breaths Abdomen positive bowel tones soft nontender Calves no tenderness cords Data 12/07/24 04:43 12/07/24 04:43 Micro: Microbiology 12/06/24 03:38 Gram Stain - Final Sputum - Expectorated Sputum Sputum Culture - Preliminary Gram Negative Rods 12/06/24 01:17 Blood Culture - Preliminary Blood NEGATIVE TO DATE 12/06/24 01:22 Blood Culture - Preliminary Blood NEGATIVE TO DATE 12/06/24 04:13 Legionella Urinary Antigen - Final Urine,Voided Bacterial Antigens - Final A&P Assessment and plan 1. Pneumonia: Patient treated with Zosyn and vancomycin for superimposed bacterial pneumonia. The procalcitonin level was relatively low mild elevation. He did not respond that much to those antibiotics and white count dropped from 20-16. Viral panel is negative patient is on multiple immunosuppressants which puts him at increased risk of his MAC infection. There is also question of possibly having Aspergillus. I had not started him on antifungal. Speaking with his supervisor pressing department Dr. Steward we elected to start him on voriconazole empirically awaiting testing. I had spoken with Dr. Edwards and we had planned on delaying but patient has worsened or not improved enough and therefore is concerning for further delaying treatment further. Patient was referred to [place] for left upper lobectomy but he tells me yesterday he was at [facility]. I placed a call to Dr. Jose Calixto at [facility] via education and outreach coordinator Elisa at [phone]. He is excepted via the medicine service but there is a delay of days to get actual bed. 2. 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 - Continue MAC medications -Pulmonary consult, start voriconazole, plan chest tube drainage but that cannot be done here so he needs to be transferred to a tertiary care center and then eventual lobectomy Due to voriconazole interaction with rifampin, rifampin is stopped. Furthermore his immunosuppressants are stopped 3. Centrilobular emphysema: Possible mild to moderate exacerbation. Budesonide and Neb treatments with DuoNeb in addition to antibiotics as above. Started the patient on Decadron 4 mg twice a day for COPD exacerbation with wheezing also start mucolytic with guaifenesin continue nebulizer Plan: Creatinine improved to 2.6 Rheumatoid arthritis: On Actemra at home. Hold for now. Hospitalization bundle : Admission planning and code status discussion documented. Requesting to confirm home medications. - Prepare admission/hospitalization; day team to assume care in the morning - Discussed code status; full code PDMP PDMP Reviewed: Not Reviewed Attestations Medical Necessity Statement*: Patient remains in the hospital for IV antibiotics, voriconazole and close monitoring. Anticipate transfer to [facility] Coding Level of Care Code 53101 Diagnoses Pneumonia J18.9 Pulmonary cavitary lesion J98.4 Centrilobular emphysema J43.2 COPD type: emphysema Emphysema type: centrilobular Time Spent (min) 55
[2024-12-07] MEDS: piperacillin-tazobactam 3.375 GM in sodium chloride 0.9% (plus) 50 ML IV (20:13)
[2024-12-08] VITALS (15 sets, daily range): BP systolic 119–166; BP diastolic 68–97; PULSE 75–95; RESP 16–98; TEMP 36.4–36.9; O2SAT 91–96
[2024-12-08] MEDS: oxyCODONE-APAP 5-325 mg Tablet 1 TAB PO ×4 (02:44→22:19)
[2024-12-08 05:02] LABS: Hematocrit 37.5 % (37-53); Hemoglobin 12.60 g/dL (11.27-16.99); Mean Corpuscular HGB Conc 33.6 g/dL (30-55); Mean Corpuscular Hemoglobin 32.5 pg (27-33); Mean Corpuscular Volume 96.6 fl (82-101); Nucleated Red Blood Cells % 0 %; Platelet Count 231 10^3/cmm (157-399); Red Blood Count 3.88 10^6/uL (3.85-5.65); White Blood Count 14.39 10^3/uL (3.29-11.43)
[2024-12-08 05:34] LABS: Magnesium 1.6 mg/dL (1.7-2.3)
[2024-12-08 05:35] LABS: Alanine Aminotransferase 17 U/L (0-41); Albumin Level 3.1 g/dL (3.5-5.2); Alkaline Phosphatase 100 U/L (40-130); Anion Gap 19.3 (5-19); Aspartate Amino Transferase 23 U/L (0-40); Blood Urea Nitrogen 20 mg/dL (6-20); Calcium 8.5 mg/dL (8.5-10.5); Carbon Dioxide 18 mmol/L (22-29); Chloride 107 mmol/L (98-107); Creatinine Clr Calc Pharmacy 43.8227; Globulin 2.2 g/dL (1.3-4.6); Glucose 85 mg/dL (65-115); Osmolality Calculated 292 mOsm/kg (285-295); Potassium 4.3 mmol/L (3.5-5.1); Sodium 140 mmol/L (136-145); Total Protein 5.3 g/dL (6.6-8.7)
[2024-12-08] MEDS: CITALOPRAM 40 MG TABLET PO (06:18)
[2024-12-08] MEDS: metoprolol succinate ER (24 HR) 50 mg Tablet PO (06:18)
[2024-12-08] MEDS: guaiFENesin-dextromethorphan UDC 10 mL PO ×2 (08:46→16:23)
[2024-12-08] MEDS: piperacillin-tazobactam 3.375 GM in sodium chloride 0.9% (plus) 50 ML IV ×2 (12:03→22:20)
--- NOTE | 2024-12-08 15:23 | PM.PN ---
Subjective Subjective: 58-year-old male states 12/05/2024 he was at [facility] and he had an MRI done of his lung by his cardiothoracic surgeon who showed him that he had pneumonia adjacent to his left lung cavitation. His physician wanted to admit him there but patient did not want to be admitted that for from home. He states it was a 6-1/2-hour roundtrip. Patient has had headache fever yellow phlegm for the past month. He cut his tobacco use from 2 packs/day to 1/2 pack/day in the last 2 weeks due to difficult to afford the medication and hard to breathe all the time. Patient has had fevers chills sweats. He is not on oxygen at home patient denies hemoptysis but is coughing up yellow phlegm. Patient excepted at [facility] pending bed availability. He has had improvement overnight with decrease in white count to 14,000 and decrease in heart rate to 88. Patient states he feels a little better as well Vitals/I&O/Wt Last Vital Signs Temp 97.6 F 12/08/24 11:38 Pulse 88 12/08/24 14:00 Resp 18 12/08/24 14:00 BP 166/97 12/08/24 11:38 Pulse Ox 96 12/08/24 14:00 O2 Del Method Oxymask 12/08/24 14:00 O2 Flow Rate 3 12/08/24 14:00 FiO2 4 12/06/24 20:00 12/08/24 12/08/24 12/08/24 06:59 14:59 22:59 Intake Total 250 / 1940 610 / 610 Output Total 825 / 1325 Balance -575 / 615 610 / 610 Weight last 48 hrs Weight 83.461 kg Weight 83.178 kg Physical Exam Narrative: General well-developed well-nourished male sleeping more comfortably this afternoon he has moderate work of breathing CV regular rate and rhythm Lungs prolonged x-ray phase crackles heard in the left upper lung field, some in the left midlung field and trace the bases the basilar crackles improved with deep breaths Abdomen positive bowel tones soft nontender Calves no tenderness cords Data 12/08/24 04:36 12/08/24 04:36 Micro: Microbiology 12/06/24 03:38 Gram Stain - Final Sputum - Expectorated Sputum Sputum Culture - Preliminary Gram Negative Rods A&P Assessment and plan 1. Pneumonia: Patient treated with Zosyn and vancomycin for superimposed bacterial pneumonia. The procalcitonin level was relatively low mild elevation. He did not respond that much to those antibiotics and white count dropped from 20-16. Viral panel is negative patient is on multiple immunosuppressants which puts him at increased risk of his MAC infection. There is also question of possibly having Aspergillus. I had not started him on antifungal. Speaking with his photographic process attendant Dr. Steward we elected to start him on voriconazole empirically awaiting testing. I had spoken with Dr. Edwards and we had planned on delaying but patient has worsened or not improved enough and therefore is concerning for further delaying treatment further. Patient was referred to [place] for left upper lobectomy but he tells me yesterday he was at [facility]. I placed a call to Dr. Jose Calixto at [facility] via content coordinator Elisa at [phone]. He is accepted by Dr. Gallego via the medicine service but there is a delay of days to get actual bed. 2. 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 - Continue MAC medications -Pulmonary consult, start voriconazole, plan chest tube drainage but that cannot be done here so he needs to be transferred to a tertiary care center and then eventual lobectomy Due to voriconazole interaction with rifampin, rifampin is stopped. Furthermore his immunosuppressants are stopped 3. Centrilobular emphysema: Possible mild to moderate exacerbation. Budesonide and Neb treatments with DuoNeb in addition to antibiotics as above. Started the patient on Decadron 4 mg twice a day for COPD exacerbation with wheezing also start mucolytic with guaifenesin continue nebulizer 4. Mycobacterium avium complex: Resume azithromycin 500 mg daily. Rifampin was stopped due to contraindication while taking voriconazole. Ethambutol increased to 1200 mg daily 5. Seronegative rheumatoid arthritis of both hands: Immunosuppressives are stopped 6. Chronic kidney disease: Stable meds are renally adjusted. Plan: Creatinine improved to 2.1 Rheumatoid arthritis: On Actemra at home. Hold for now. PDMP PDMP Reviewed: Not Reviewed Attestations Medical Necessity Statement*: Patient brandon in hospital for IV antibiotics including voriconazole for Aspergillus cavitary lesion awaiting transfer to [facility] Coding Level of Care Code 81800 Diagnoses Pneumonia J18.9 Pulmonary cavitary lesion J98.4 Centrilobular emphysema J43.2 COPD type: emphysema Emphysema type: centrilobular Mycobacterium avium complex A31.0 Seronegative rheumatoid arthritis of both hands M06.041; M06.042 Chronic kidney disease N18.9 Time Spent (min) 35
[2024-12-08] MEDS: VORICONAZOLE IV (20:49)
[2024-12-08] MEDS: SODIUM CHLORIDE 0.9% IV (20:49)
[2024-12-09] VITALS (9 sets, daily range): BP systolic 143–178; BP diastolic 81–98; PULSE 77–97; RESP 16–21; TEMP 36.6–37.2; O2SAT 92–97
[2024-12-09 05:52] LABS: Hematocrit 37.3 % (37-53); Hemoglobin 12.40 g/dL (11.27-16.99); Mean Corpuscular HGB Conc 33.2 g/dL (30-55); Mean Corpuscular Hemoglobin 31.5 pg (27-33); Mean Corpuscular Volume 94.7 fl (82-101); Nucleated Red Blood Cells % 0 %; Platelet Count 239 10^3/cmm (157-399); Red Blood Count 3.94 10^6/uL (3.85-5.65); White Blood Count 13.39 10^3/uL (3.29-11.43)
[2024-12-09] MEDS: metoprolol succinate ER (24 HR) 50 mg Tablet PO (05:56)
[2024-12-09] MEDS: piperacillin-tazobactam 3.375 GM in sodium chloride 0.9% (plus) 50 ML IV ×2 (05:57→14:33)
[2024-12-09 06:12] LABS: Anion Gap 18.5 (5-19); Blood Urea Nitrogen 21 mg/dL (6-20); Calcium 8.6 mg/dL (8.5-10.5); Carbon Dioxide 19 mmol/L (22-29); Chloride 106 mmol/L (98-107); Creatinine Clr Calc Pharmacy 48.5043; Glucose 94 mg/dL (65-115); Osmolality Calculated 291 mOsm/kg (285-295); Potassium 4.5 mmol/L (3.5-5.1); Sodium 139 mmol/L (136-145)
[2024-12-09 06:15] LABS: Magnesium 1.7 mg/dL (1.7-2.3)
--- NOTE | 2024-12-09 08:52 | PC.SOCIAL ---
IMM Updated Updated pt on IMM. No questions voiced. Provided pt a copy. Initialed, dated, & timed copy in chart.
[2024-12-09] MEDS: VORICONAZOLE IV ×2 (10:49→21:42)
[2024-12-09] MEDS: SODIUM CHLORIDE 0.9% IV ×2 (10:49→21:42)
[2024-12-09 11:49] LABS: Fungitell 1-3-B Glucan Assay <31 pg/mL (<60); Interpretation Negative (Negative)
[2024-12-09] MEDS: guaiFENesin-dextromethorphan UDC 10 mL PO ×2 (15:16→21:16)
[2024-12-09] MEDS: oxyCODONE-APAP 5-325 mg Tablet 1 TAB PO (15:16)
--- NOTE | 2024-12-09 16:07 | P.PN_ITS ---
Subjective 2 Subjective: 58-year-old male states [address] [facility] and he had an MRI done of his lung by his cardiothoracic surgeon who showed him that he had pneumonia adjacent to his left lung cavitation. His physician wanted to admit him there but patient did not want to be admitted that for from home. He states it was a 6-1/2-hour roundtrip. Patient has had headache fever yellow phlegm for the past month. He cut his tobacco use from 2 packs/day to 1/2 pack/day in the last 2 weeks due to difficult to afford the medication and hard to breathe all the time. Patient has had fevers chills sweats. He is not on oxygen at home patient denies hemoptysis but is coughing up yellow phlegm. Patient excepted at [facility] pending bed availability. Patient complains of pain with cough or deep breath. He is coughing up some pink-tinged phlegm. White count has been elevated but stable at 13 as it has his heart rate Vitals/I&O/Wt Last Vital Signs Temp 98.9 F 12/09/24 15:21 Pulse 97 12/09/24 15:21 Resp 19 H 12/09/24 15:21 BP 143/83 12/09/24 15:21 Pulse Ox 96 12/09/24 15:21 O2 Del Method Nasal Cannula 12/09/24 15:21 O2 Flow Rate 5 12/09/24 15:21 FiO2 4 12/06/24 20:00 12/09/24 12/09/24 12/09/24 06:59 14:59 22:59 Intake Total 1119 658.333 / 658.333 Output Total 1000 / 1000 Balance 120 / 1020 658.333 / 658.333 Weight last 48 hrs Weight 83.461 kg Weight 83.461 kg Physical Exam 2 Narrative: General well-developed well-nourished male sleeping more comfortably this afternoon he has moderate work of breathing CV regular rate and rhythm Lungs prolonged x-ray phase crackles heard in the left upper lung field, some in the left midlung field and trace the bases the basilar crackles improved with deep breaths Abdomen positive bowel tones soft nontender Calves no tenderness cords Data 12/09/24 05:24 12/09/24 05:24 A&P Assessment and plan 1. Pneumonia: Patient continues on Zosyn and vancomycin for superimposed bacterial pneumonia and on voriconazole for aspergilloma and left upper lung cavity 10 cm in size Yesterday I placed a call to Dr. Jose Calixto at [facility] via marketing coordinator Elisa at [phone]. He is accepted by Dr. Gallego via the medicine service but there is a delay of days to get actual bed. I called and confirmed the patient still on the list but on a very long list and they are expecting still 5-day 2. 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 - Continue MAC medications -Pulmonary consult, start voriconazole, plan chest tube drainage but that cannot be done here so he needs to be transferred to a tertiary care center and then eventual lobectomy Due to voriconazole interaction with rifampin, rifampin is stopped. Furthermore his immunosuppressants are stopped 3. Centrilobular emphysema: Continue steroids for inflammation budesonide and Neb treatments with DuoNeb in addition to antibiotics as above. Started the patient on Decadron 4 mg twice a day for COPD exacerbation with wheezing also start mucolytic with guaifenesin continue nebulizer 4. Mycobacterium avium complex: Resume azithromycin 500 mg daily. Rifampin was stopped due to contraindication while taking voriconazole. Ethambutol increased to 1200 mg daily 5. Seronegative rheumatoid arthritis of both hands: Immunosuppressives are stopped 6. Chronic kidney disease, unspecified CKD stage: Stable meds are renally adjusted. Plan: Creatinine improved to 2.1 Rheumatoid arthritis: On Actemra at home. Hold for now. PDMP PDMP Reviewed: Not Reviewed Attestations 2 Medical Necessity Statement*: Patient brandon in hospital for IV voriconazole and monitoring of high risk situation with his cavitary lesion. He is at high risk of acute respiratory decompensation. If that occurs he will be transferred to the ICU. He is expected to be here greater than 2 midnight Coding Level of Care Code 82990 Diagnoses Pneumonia J18.9 Pulmonary cavitary lesion J98.4 Centrilobular emphysema J43.2 COPD type: emphysema Emphysema type: centrilobular Mycobacterium avium complex A31.0 Seronegative rheumatoid arthritis of both hands M06.041; M06.042 Chronic kidney disease, unspecified CKD stage N18.9 Chronic kidney disease stage: unspecified stage Time Spent (min) 40
[2024-12-09 17:20] LABS: Aspergillus AG,EIA,Serum NOT DETECTED; Aspergillus Galactomannan Inde <0.50
[2024-12-09] MEDS: ATOVAQUONE 150 MG/ML 750 MG PO (17:45)
[2024-12-09] MEDS: ondansetron 2 mg/ML SDV 2 mL 4 MG IVP (19:12)
[2024-12-10] VITALS (12 sets, daily range): BP systolic 128–175; BP diastolic 65–90; PULSE 68–107; RESP 15–24; TEMP 36.5–37.2; O2SAT 93–98
[2024-12-10] MEDS: piperacillin-tazobactam 3.375 GM in sodium chloride 0.9% (plus) 50 ML IV ×3 (00:57→16:46)
[2024-12-10] MEDS: oxyCODONE-APAP 5-325 mg Tablet 1 TAB PO ×3 (01:15→16:14)
[2024-12-10] MEDS: guaiFENesin-dextromethorphan UDC 10 mL PO ×5 (01:16→20:17)
[2024-12-10] MEDS: ondansetron 2 mg/ML SDV 2 mL 4 MG IVP ×2 (01:16→20:17)
[2024-12-10] MEDS: metoprolol succinate ER (24 HR) 50 mg Tablet PO (04:32)
--- NOTE | 2024-12-10 05:58 | PC.NURSE ---
Tele Pharmacy was contacted due to patients vanc trough being 20.4. Tele Pharm said to hold vanc for 4 hours and draw random vanc after 4 hours. Random vanc was 18.8. Will contact inpatient pharmacy at 0600 to proceed.
[2024-12-10 08:34] LABS: Anion Gap 18.5 (5-19); Blood Urea Nitrogen 25 mg/dL (6-20); Calcium 8.3 mg/dL (8.5-10.5); Carbon Dioxide 18 mmol/L (22-29); Chloride 102 mmol/L (98-107); Creatinine Clr Calc Pharmacy 46.0791; Glucose 90 mg/dL (65-115); Osmolality Calculated 282 mOsm/kg (285-295); Potassium 4.5 mmol/L (3.5-5.1); Sodium 134 mmol/L (136-145)
[2024-12-10] MEDS: ATOVAQUONE 150 MG/ML 750 MG PO ×2 (09:04→19:33)
--- NOTE | 2024-12-10 10:52 | PC.NURSE ---
RICHARD Artis at [facility] called for an update. She stated they currently do not have any beds available, and that it probably would not be today.
[2024-12-10] MEDS: VORICONAZOLE IV ×2 (12:03→22:20)
[2024-12-10] MEDS: SODIUM CHLORIDE 0.9% IV ×2 (12:03→22:20)
--- NOTE | 2024-12-10 12:35 | PM.PN ---
Subjective Subjective: 58-year-old male states 12/05/2024 he was at [facility] and he had an MRI done of his lung by his cardiothoracic surgeon who showed him that he had pneumonia adjacent to his left lung cavitation. His physician wanted to admit him there but patient did not want to be admitted that for from home. He states it was a 6-1/2-hour roundtrip. Patient has had headache fever yellow phlegm for the past month. He cut his tobacco use from 2 packs/day to 1/2 pack/day in the last 2 weeks due to difficult to afford the medication and hard to breathe all the time. Patient has had fevers chills sweats. He is not on oxygen at home patient denies hemoptysis but is coughing up yellow phlegm. Patient excepted at [facility] pending bed availability and I confirmed on 12/09/2024 that he is on the list but still awaiting open bed. Patient complains of blood pressure being high in the evening and headache. He would like to have his lisinopril increased to 20 mg twice a day. He states his kidney function had been stable on that for years. Counseled him that I had held the lisinopril to a lower dose because of renal failure on admission. Additionally patient would like a bag of fluid feels that he is dehydrated. I's and O's 4600 positive this admission but that is over 5 days which does not account for insensible losses Vitals/I&O/Wt Last Vital Signs Temp 98.6 F 12/10/24 11:36 Pulse 79 12/10/24 11:36 Resp 16 12/10/24 11:36 BP 151/65 12/10/24 11:36 Pulse Ox 96 12/10/24 11:36 O2 Del Method Oxymask 12/10/24 11:36 O2 Flow Rate 3 12/10/24 11:36 FiO2 4 12/06/24 20:00 12/09/24 12/10/24 12/10/24 22:59 06:59 14:59 Intake Total 290 / 948.333 540 / 1488.333 420 / 420 Output Total 350 / 350 400 / 750 Balance -60 / 598.333 140 / 738.333 420 / 420 Weight last 48 hrs Weight 83.461 kg Weight 83.461 kg Physical Exam Narrative: General well-developed well-nourished male sleeping more comfortably this afternoon he has moderate work of breathing CV regular rate and rhythm Lungs prolonged x-ray phase crackles heard in the left upper lung field, some in the left midlung field and trace the bases the basilar crackles improved with deep breaths Abdomen positive bowel tones soft nontender Calves no tenderness cords Data 12/09/24 05:24 12/10/24 05:21 A&P Assessment and plan 1. Pneumonia: Patient continues on Zosyn and vancomycin for superimposed bacterial pneumonia and on voriconazole for aspergilloma and left upper lung cavity 10 cm in size Yesterday I placed a call to Dr. Jose Calixto at [facility] via airport operations coordinator Elisa at [phone]. He is accepted by Dr. Gallego via the medicine service but there is a delay of days to get actual bed. I called and confirmed the patient still on the list 12/09/2024 but on a very long list and they are expecting still 5-day 2. 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 - Continue MAC medications -Pulmonary consult, start voriconazole, plan chest tube drainage but that cannot be done here so he needs to be transferred to a tertiary care center and then eventual lobectomy Due to voriconazole interaction with rifampin, rifampin is stopped. Furthermore his immunosuppressants are stopped 3. Centrilobular emphysema: Continue steroids for inflammation budesonide and Neb treatments with DuoNeb in addition to antibiotics as above. Started the patient on Decadron 4 mg twice a day for COPD exacerbation with wheezing also start mucolytic with guaifenesin continue nebulizer 4. Mycobacterium avium complex: Resume azithromycin 500 mg daily. Rifampin was stopped due to contraindication while taking voriconazole. Ethambutol increased to 1200 mg daily 5. Seronegative rheumatoid arthritis of both hands: Immunosuppressives are stopped 6. Chronic kidney disease, unspecified CKD stage: Stable meds resume lisinopril 20 mg twice a day. Continue bicarb at 650 mg 3 times daily. Mini panel in morning Plan: Creatinine improved to 2.0 Rheumatoid arthritis: On Actemra at home. Hold for now. PDMP PDMP Reviewed: Not Reviewed Attestations Medical Necessity Statement*: Patient brandon in the hospital for IV voriconazole, close monitoring while he awaits bed at [facility] Coding Level of Care Code 16222 Diagnoses Pneumonia J18.9 Pulmonary cavitary lesion J98.4 Centrilobular emphysema J43.2 COPD type: emphysema Emphysema type: centrilobular Mycobacterium avium complex A31.0 Seronegative rheumatoid arthritis of both hands M06.041; M06.042 Chronic kidney disease, unspecified CKD stage N18.9 Chronic kidney disease stage: unspecified stage Time Spent (min) 25
[2024-12-11] VITALS (11 sets, daily range): BP systolic 137–159; BP diastolic 72–89; PULSE 61–80; RESP 16–25; TEMP 36.4–36.9; O2SAT 93–98
[2024-12-11] MEDS: guaiFENesin-dextromethorphan UDC 10 mL PO ×5 (00:41→21:06)
[2024-12-11] MEDS: piperacillin-tazobactam 3.375 GM in sodium chloride 0.9% (plus) 50 ML IV ×3 (01:25→17:57)
[2024-12-11] MEDS: metoprolol succinate ER (24 HR) 50 mg Tablet PO (04:37)
[2024-12-11 09:07] LABS: Anion Gap 20.7 (5-19); Blood Urea Nitrogen 32 mg/dL (6-20); Calcium 8.6 mg/dL (8.5-10.5); Carbon Dioxide 17 mmol/L (22-29); Chloride 103 mmol/L (98-107); Creatinine Clr Calc Pharmacy 48.0970; Glucose 149 mg/dL (65-115); Osmolality Calculated 292 mOsm/kg (285-295); Potassium 4.7 mmol/L (3.5-5.1); Sodium 136 mmol/L (136-145)
--- NOTE | 2024-12-11 10:52 | PC.NURSE ---
Elisa at [facility] called for any updates. No beds available at this time.
[2024-12-11] MEDS: oxyCODONE-APAP 5-325 mg Tablet 1 TAB PO ×2 (11:23→17:44)
[2024-12-11] MEDS: VORICONAZOLE IV ×2 (11:23→22:12)
[2024-12-11] MEDS: SODIUM CHLORIDE 0.9% IV ×2 (11:23→22:12)
[2024-12-11] MEDS: ATOVAQUONE 150 MG/ML 750 MG PO ×2 (11:34→17:48)
--- NOTE | 2024-12-11 18:24 | P.PN_ITS ---
Subjective 2 Subjective: 58-year-old male awaiting bed placement at [facility] but excepted by Dr. Gallego of the hospitalist service with Dr. Jose Calixto to consult. He is here getting voriconazole and he states his sputum has been recently significant amounts but decreased from yesterday to today. He feels like his breathing is getting easier Vitals/I&O/Wt Last Vital Signs Temp 97.7 F 12/11/24 15:25 Pulse 71 12/11/24 15:25 Resp 18 12/11/24 17:44 BP 139/83 12/11/24 15:25 Pulse Ox 96 12/11/24 17:44 O2 Del Method Oxymask 12/11/24 15:25 O2 Flow Rate 6 12/11/24 14:56 FiO2 4 12/06/24 20:00 12/11/24 12/11/24 12/11/24 06:59 14:59 22:59 Intake Total 540 / 3620 500 / 500 50 / 550 Output Total 350 / 350 Balance 190 / 3270 500 / 500 50 / 550 Weight last 48 hrs Weight 81.783 kg Weight 83.461 kg Physical Exam 2 Narrative: General well-developed well-nourished male breathing comfortably CV regular rate and rhythm Lungs crackles heard in the left upper lung and trace in the left lower lung right lung is clear no wheezes air movement is good Abdomen soft nontender Calves no tenderness cords pretibial edema Data 12/09/24 05:24 12/11/24 08:09 Micro: Microbiology 12/06/24 01:17 Blood Culture - Final Blood NO GROWTH AFTER 5 DAYS 12/06/24 01:22 Blood Culture - Final Blood NO GROWTH AFTER 5 DAYS 12/06/24 03:38 Fungal Smear - Preliminary Sputum - Expectorated Sputum A&P Assessment and plan 1. Pneumonia: Patient continues on Zosyn and vancomycin for superimposed bacterial pneumonia and on voriconazole for aspergilloma and left upper lung cavity 10 cm in size 12/07/2024 I placed a call to Dr. Jose Calixto at [facility] via financial coordinator Elisa at [phone]. He is accepted by Dr. Gallego via the medicine service but there is a delay of days to get actual bed. I called and confirmed the patient still on the list 12/09/2024 but on a very long list and they are expecting still 5-day 2. 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 - Continue MAC medications -Pulmonary consult, start voriconazole, plan chest tube drainage but that cannot be done here so he needs to be transferred to a tertiary care center and then eventual lobectomy Due to voriconazole interaction with rifampin, rifampin is stopped. Furthermore his immunosuppressants are stopped 3. Centrilobular emphysema: Continue steroids for inflammation budesonide and Neb treatments with DuoNeb in addition to antibiotics as above. Started the patient on Decadron 4 mg twice a day for COPD exacerbation with wheezing also start mucolytic with guaifenesin continue nebulizer 4. Mycobacterium avium complex: Continue azithromycin 500 mg daily. Rifampin was stopped due to contraindication while taking voriconazole. Ethambutol increased to 1200 mg daily 5. Seronegative rheumatoid arthritis of both hands: Immunosuppressives are stopped 6. Chronic kidney disease, unspecified CKD stage: Stable meds resume lisinopril 20 mg twice a day. Continue bicarb at 650 mg 3 times daily. Mini panel in morning Still has metabolic acidosis despite bicarbonate. Will recheck again in the morning along with CBC Plan: Creatinine improved to 2.0 Rheumatoid arthritis: On Actemra at home. Hold for now. PDMP PDMP Reviewed: Not Reviewed Attestations 2 Medical Necessity Statement*: Patient brandon in the hospital for IV voriconazole and antibiotics for left upper lung pneumonia cavitary lesion awaiting bed placement [facility] Coding Level of Care Code 71537 Diagnoses Pneumonia J18.9 Pulmonary cavitary lesion J98.4 Centrilobular emphysema J43.2 COPD type: emphysema Emphysema type: centrilobular Mycobacterium avium complex A31.0 Seronegative rheumatoid arthritis of both hands M06.041; M06.042 Chronic kidney disease, unspecified CKD stage N18.9 Chronic kidney disease stage: unspecified stage Time Spent (min) 25
[2024-12-12] VITALS (10 sets, daily range): BP systolic 142–164; BP diastolic 78–91; PULSE 61–78; RESP 16–22; TEMP 36.4–36.6; O2SAT 93–98
[2024-12-12] MEDS: oxyCODONE-APAP 5-325 mg Tablet 1 TAB PO (02:08)
[2024-12-12] MEDS: piperacillin-tazobactam 3.375 GM in sodium chloride 0.9% (plus) 50 ML IV ×3 (02:10→22:49)
[2024-12-12 04:31] LABS: Hematocrit 35.8 % (37-53); Hemoglobin 12.10 g/dL (11.27-16.99); Mean Corpuscular HGB Conc 33.8 g/dL (30-55); Mean Corpuscular Hemoglobin 32.4 pg (27-33); Mean Corpuscular Volume 95.7 fl (82-101); Nucleated Red Blood Cells % 0 %; Platelet Count 232 10^3/cmm (157-399); Red Blood Count 3.74 10^6/uL (3.85-5.65); White Blood Count 12.98 10^3/uL (3.29-11.43)
[2024-12-12] MEDS: metoprolol succinate ER (24 HR) 50 mg Tablet PO (04:42)
[2024-12-12 04:55] LABS: Anion Gap 15.5 (5-19); Blood Urea Nitrogen 36 mg/dL (6-20); Calcium 8.2 mg/dL (8.5-10.5); Carbon Dioxide 20 mmol/L (22-29); Chloride 104 mmol/L (98-107); Creatinine Clr Calc Pharmacy 43.7654; Glucose 145 mg/dL (65-115); Osmolality Calculated 291 mOsm/kg (285-295); Potassium 4.5 mmol/L (3.5-5.1); Sodium 135 mmol/L (136-145)
[2024-12-12] MEDS: ATOVAQUONE 150 MG/ML 750 MG PO ×2 (08:13→17:51)
--- NOTE | 2024-12-12 10:43 | PC.RESP ---
This therapist tied up in emergency on another floor at time of medication order.
--- NOTE | 2024-12-12 12:03 | PC.SOCIAL ---
IMM Update Updated pt on IMM. No questions voiced. Provided pt a copy. Initialed, dated, & timed copy in chart.
[2024-12-12] MEDS: VORICONAZOLE IV (12:39)
[2024-12-12] MEDS: SODIUM CHLORIDE 0.9% IV (12:39)
[2024-12-12] MEDS: guaiFENesin-dextromethorphan UDC 10 mL PO ×2 (14:06→20:23)
--- NOTE | 2024-12-12 16:54 | CTR_ITS ---
PROCEDURE INFORMATION: Exam: CT Chest Without Contrast; Diagnostic Exam date and time: 12/12/2024 9:04 PM Age: 58 years old Clinical indication: Shortness of breath; Additional info: Follow up lung cavity and 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 Radiation optimization: All CT scans at this facility use at least one of these dose optimization techniques: automated exposure control; mA and/or kV adjustment per patient size (includes targeted exams where dose is matched to clinical indication); or iterative reconstruction. COMPARISON: CT chest [facility] [id number] 09/15/2024 1:29 PM RADIATION DOSE METRICS: Total DLP (mGy-cm): 447.7 FINDINGS: Lungs: Cavitated left upper lobe lesion is approximately the same size compared to prior; there is new large focal consolidation in the superior and medial aspect of the left lower lobe as well as scattered foci of scattered consolidation, concerning for spread of fungal infection. Scattered faint bilateral pulmonary nodules could also suggest spread of fungal infection. Pleural spaces: Unremarkable. No pneumothorax. No pleural effusion. Heart: Unremarkable. No cardiomegaly. No pericardial effusion. Lymph nodes: Unremarkable. No enlarged lymph nodes. Vasculature: Aortic and coronary atherosclerosis. Liver: Innumerable hepatic cysts, likely part of the same process. Kidneys: Polycystic kidney disease. Bones/joints: Unremarkable. No acute fracture. Soft tissues: Unremarkable. [id number] bilateral emphysema. CT/CT chest [facility] [id number] IMPRESSION: Cavitated left upper lobe lesion is approximately the same size compared to prior (up to 9.7 cm in maximum transverse dimension); there is new large focal consolidation in the superior and medial aspect of the left lower lobe as well as scattered foci of scattered consolidation, concerning for spread of fungal infection.
--- NOTE | 2024-12-12 17:36 | PM.PN ---
Subjective Subjective: 58-year-old male awaiting bed placement at [facility] but excepted by Dr. Gallego of the hospitalist service with Dr. Jose Calixto to consult. He is here getting voriconazole and he states his sputum has been recently significant amounts but decreased from yesterday to today. He feels like his breathing is getting easier I called and spoke to [facility] and patient is still on the list hospital has been very full and they are moving higher acuity people in. She states that she will message the admitting medicine team and see if they would like to step the patient's admit. Patient states that quitting smoking has not been as bad as he thought it would be and he wants to go over his medicines with his doctor and get out the immunosuppressants. Vitals/I&O/Wt Last Vital Signs Temp 97.5 F L 12/12/24 16:00 Pulse 71 12/12/24 16:00 Resp 18 12/12/24 16:00 BP 158/89 12/12/24 16:00 Pulse Ox 98 12/12/24 16:00 O2 Del Method Oxymask 12/12/24 16:00 O2 Flow Rate 6 12/12/24 13:34 FiO2 4 12/06/24 20:00 12/12/24 12/12/24 12/12/24 06:59 14:59 22:59 Intake Total 300 / 900 490 / 490 250 / 740 Output Total 435 / 910 Balance -135 / -10 490 / 490 250 / 740 Weight last 48 hrs Weight 82.917 kg Weight 81.783 kg Physical Exam Narrative: General well-developed well-nourished male breathing comfortably CV regular rate and rhythm Lungs minimal crackles heard in the left upper lung and trace in the left lower lung right lung is clear no wheezes air movement is good Abdomen soft nontender Calves no tenderness cords pretibial edema Data 12/12/24 04:00 12/12/24 04:00 A&P Assessment and plan 1. 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 Not wheezing changed to Decadron [address] scan 12/07/2024 I placed a call to Dr. Jose Calixto at [facility] via extrusion die coordinator Elisa at [phone]. He is accepted by Dr. Gallego via the medicine service but there is a delay of days to get actual bed. I called and confirmed the patient still on the list 12/12/2024 but not giving me a time for when he can be except 2. 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 - Continue MAC medications -Pulmonary consult, start voriconazole, plan chest tube drainage but that cannot be done here so he needs to be transferred to a tertiary care center and then eventual lobectomy Due to voriconazole interaction with rifampin, rifampin is stopped. Furthermore his immunosuppressants are stopped As above repeat CT 3. Centrilobular emphysema: Continue steroids for inflammation budesonide and Neb treatments with DuoNeb in addition to antibiotics as above. Started the patient on Decadron 4 mg twice a day for COPD exacerbation with wheezing also start mucolytic with guaifenesin continue nebulizer 4. Mycobacterium avium complex: Continue azithromycin 500 mg daily. Rifampin was stopped due to contraindication while taking voriconazole. Ethambutol increased to 1200 mg daily 5. Seronegative rheumatoid arthritis of both hands: Immunosuppressives are stopped 6. Chronic kidney disease, unspecified CKD stage: Stable meds resume lisinopril 20 mg twice a day. Continue bicarb at 650 mg 3 times daily. Mini panel in morning Still has metabolic acidosis despite bicarbonate. Will recheck again in the morning along with CBC Plan: Creatinine improved to 2.0 Rheumatoid arthritis: On Actemra at home. Hold for now. Patient states he feels pretty good about having quit smoking and is going to go without immunosuppressant PDMP PDMP Reviewed: Not Reviewed Attestations Medical Necessity Statement*: Patient brandon hospitalized awaiting transfer depends how he does and what Dr. Simental and the cardiology team recommends Coding Level of Care Code 28863 Diagnoses Pneumonia J18.9 Pulmonary cavitary lesion J98.4 Centrilobular emphysema J43.2 COPD type: emphysema Emphysema type: centrilobular Mycobacterium avium complex A31.0 Seronegative rheumatoid arthritis of both hands M06.041; M06.042 Chronic kidney disease, unspecified CKD stage N18.9 Chronic kidney disease stage: unspecified stage Time Spent (min) 25
[2024-12-13] VITALS (11 sets, daily range): BP systolic 103–167; BP diastolic 64–84; PULSE 61–99; RESP 18–22; TEMP 36.5–36.9; O2SAT 92–99
[2024-12-13] MEDS: MELATONIN 3 MG TABLET 6 MG PO ×2 (00:45→22:41)
[2024-12-13] MEDS: VORICONAZOLE IV ×2 (01:23→15:34)
[2024-12-13] MEDS: SODIUM CHLORIDE 0.9% IV ×2 (01:23→15:34)
[2024-12-13] MEDS: metoprolol succinate ER (24 HR) 50 mg Tablet PO (05:59)
[2024-12-13] MEDS: guaiFENesin-dextromethorphan UDC 10 mL PO ×3 (06:07→20:48)
[2024-12-13] MEDS: ATOVAQUONE 150 MG/ML 750 MG PO ×2 (08:00→16:37)
[2024-12-13] MEDS: piperacillin-tazobactam 3.375 GM in sodium chloride 0.9% (plus) 50 ML IV ×2 (08:32→17:29)
--- NOTE | 2024-12-13 16:52 | P.PN_ITS ---
Subjective 2 Subjective: 58 year old male with pmhx of chronic ob structive pulmonary disease, Mycobacterium avium infection, nicotine addiction, polymyalgia rheumatica and possible evolving rheumatoid arthritis on actemra here for a follow up Patient has had bilateral upper lobe infiltrates persistent for the last 3 months with use of intermittent steroids. Suspicious for MAC infection. He is currently on Augmentin for his sinusitis as well as doxycycline that was recently started. Sputum AFB cultures and MTB PCR x 3 have been positive. A/G/GM BD glucan from serum to screen for fungal and PJP pneumonia ordered and all have been ordered by ID. Patient came in with increased shortness of breath, fever and found to have an abscess with FABIENNE cavity probable aspergillus Was seen by Thoracic surgery at [facility] and diagnosed with cavitary lung disease and pneumonia/abscess in the LLL. He was recommended admission with antibiotics and patient declined treatment and ended up coming to [facility] Currently he appears uncomfortable and more hypoxic 12/13/24: CXR reviewed from 12/12 and compared to 12/05- minor improvement in the left upper lobe cavity and surrounding abscess. no fevers, less cough Vitals/I&O/Wt Last Vital Signs Temp 98.4 F 12/13/24 16:33 Pulse 99 12/13/24 16:33 Resp 18 12/13/24 16:33 BP 103/69 12/13/24 16:33 Pulse Ox 92 12/13/24 16:33 O2 Del Method Nasal Cannula 12/13/24 16:33 O2 Flow Rate 5 12/13/24 14:00 FiO2 4 12/06/24 20:00 12/13/24 12/13/24 12/13/24 06:59 14:59 22:59 Intake Total 300 / 1770 1660 / 1660 Output Total 400 / 700 1000 / 1000 Balance -100 / 1070 1660 / 1660 -1000 / 660 Weight last 48 hrs Weight 179 lb 1.6 oz Weight 182 lb 12.8 oz Physical Exam 2 Narrative: per RN General: Tachycardic, tachypneic HEENT: conj clear, EOMI, PERRL Neck: supple Pulmonary: Diminished breath sounds bilaterally Cardiovascular: Tachycardic Abdomen: soft, nt, nd, no r/g, Extremities: pulses +, no edema Skin: no rash Neurologic: grossly intact Agree with above exam Data 12/12/24 04:00 12/12/24 04:00 A&P Assessment and plan 1. COPD (chronic obstructive pulmonary disease): 2. Severe tobacco use disorder: Plan: # Left upper lobe cavitary pneumonia-differential includes MAC related expanding cavity versus aspergilloma. I reviewed the CT scan that showed a fungus ball appearing lesion inside the lung cavity suspicious for aspergilloma. Also has pneumonia/abscess developing below the fungal cavity suspicious of invasive aspergilloma Sputum growing pseudomonas, continue zosyn- possibly for a prolonged course Consulted Dr. Edwards and reviewed scans together. I think he would benefit from having a left upper lobectomy vs a CT guided catheter into the abscess to drain. Currently will be placed on voriconazole, vancomycin and zosyn. Discussed case with Dr Dunne Pending [facility] transfer for almost a week now. Ongoing discussions with Dr Calixto # COPD group B, gold 1/chronic bronchitis- in acutee exacerbation DuoNebs 3 times a day. # Mycobacterium avium infection hx he is also on atovaquone and ethambutol for his underlying MAC infection. Follows up with Dr. Dr. Edwards #Immunocompromised # Rheumatoid arthritis Continue Actemra # Encounter for smoking cessation counseling Medical decision making level-High High MDM includes number and complexity of problems actively addressed during encounter, amount and/or complexity of data reviewed/ordered [ previous or external records, resulted lab(s)/test(s), ordered lab(s)/test(s), independent historian, independent test interpretation and other healthcare professional discussion] and described risk of complication, morbidity or mortality of management as documented This documentation was created by [employer] structural rigger software (known for inherent structural rigger error). Every effort was made to assure accuracy of structural rigger. Any obvious errors or omissions should be clarified with the author of the document PDMP PDMP Reviewed: Not Reviewed Attestations 2 Medical Necessity Statement*: awaiting [facility] transfer for lung abscess and cavity Coding Level of Care Code 24618 Diagnoses COPD (chronic obstructive pulmonary disease) J44.9 Severe tobacco use disorder F17.200
--- NOTE | 2024-12-13 18:41 | PM.PN ---
Subjective Subjective: 58-year-old male awaiting bed placement at [facility] but excepted by Dr. Gallego of the hospitalist service with Dr. Jose Calixto to consult. He is here getting voriconazole and he states his sputum has been recently significant amounts but decreased from yesterday to today. He feels like his breathing is getting easier I called and spoke to cardiothoracic surgeon Jose Calixto at [facility]. [facility] has not excepted the patient and I presume he is on a low acuity. Dr. Calixto does not think that the patient can have a lung resection of just the left upper lung due to the infiltrates and he is concerned that the additional infiltrates will go the way of the left upper lung cavity. He thinks a lobectomy might be needed but that the patient could not tolerate it with his lung function. He is going to try and talk to the hospitalist medical team into taking the patient sooner Patient states he was diagnosed with MAC about 3 years ago and told by Dr. Edwards that he probably had it 3 years before that. Patient states he was started on rheumatology immunosuppressants about 2 years ago and is not sure if Dr. Edwards knew that. He wants to stop the immunosuppressive Patient states that quitting smoking has not been as bad as he thought it would be and he wants to go over his medicines with his doctor and get out the immunosuppressants. Vitals/I&O/Wt Last Vital Signs Temp 98.4 F 12/13/24 16:33 Pulse 99 12/13/24 16:33 Resp 18 12/13/24 16:33 BP 103/69 12/13/24 16:33 Pulse Ox 92 12/13/24 16:33 O2 Del Method Nasal Cannula 12/13/24 16:33 O2 Flow Rate 5 12/13/24 14:00 FiO2 4 12/06/24 20:00 12/13/24 12/13/24 12/13/24 06:59 14:59 22:59 Intake Total 300 / 1770 1660 / 1660 610 / 2270 Output Total 400 / 700 1000 / 1000 Balance -100 / 1070 1660 / 1660 -390 / 1270 Weight last 48 hrs Weight 81.238 kg Weight 82.917 kg Physical Exam Narrative: General well-developed well-nourished male breathing comfortably CV regular rate and rhythm Lungs minimal crackles heard in the left upper lung and trace in the left lower lung right lung is clear no wheezes air movement is good Abdomen soft nontender Calves no tenderness cords pretibial edema Data 12/12/24 04:00 12/12/24 04:00 A&P Assessment and plan 1. 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 Not wheezing changed to Decadron [address] scan 12/07/2024 I placed a call to Dr. Jose Calixto at [facility] via exhibits coordinator Elisa at [phone]. He is accepted by Dr. Gallego via the medicine service but there is a delay of days to get actual bed. 12/13/2024 I spoke with Jose Calixto on the phone and he is trying to help me get the patient transferred to [facility] but does not have surgery to offer. Will further discuss with Dr. Edwards and Dr. Steward Consider discontinue vancomycin since culture grew Pseudomonas 2. 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 - Continue MAC medications -Pulmonary consult, start voriconazole, plan chest tube drainage but that cannot be done here so he needs to be transferred to a tertiary care center and then eventual lobectomy Due to voriconazole interaction with rifampin, rifampin is stopped. Furthermore his immunosuppressants are stopped Repeat CT. 12/12/2024 IMPRESSION: Cavitated left upper lobe lesion is approximately the same size compared to prior (up to 9.7 cm in maximum transverse dimension); there is new large focal consolidation in the superior and medial aspect of the left lower lobe as well as scattered foci of scattered consolidation, concerning for spread of fungal infection. 3. Centrilobular emphysema: Continue steroids for inflammation budesonide and Neb treatments with DuoNeb in addition to antibiotics as above. Decrease Decadron 4 mg p.o. daily for COPD exacerbation with wheezing also continue mucolytic with guaifenesin continue nebulizer 4. Mycobacterium avium complex: Continue azithromycin 500 mg daily. Rifampin was stopped due to contraindication while taking voriconazole. Ethambutol increased to 1200 mg daily 5. Seronegative rheumatoid arthritis of both hands: Immunosuppressives are stopped 6. Chronic kidney disease, unspecified CKD stage: Stable meds resume lisinopril 20 mg twice a day. Continue bicarb at 650 mg 3 times daily. Mini panel in morning Still has metabolic acidosis despite bicarbonate. Will recheck again in the morning along with CBC Metabolic alkalosis improved and bicarb now 20 Plan: Creatinine improved to 2.0 Rheumatoid arthritis: On Actemra at home. Hold for now. Patient states he feels pretty good about having quit smoking and is going to go without immunosuppressant PDMP PDMP Reviewed: Not Reviewed Attestations Medical Necessity Statement*: Patient remains in the hospital for IV antibiotics awaiting transfer. Will further discuss with Dr. Steward and Dr. Edwards. Patient likely require greater than 2 midnights for further in our hospital awaiting transfer Coding Level of Care Code 59096 Diagnoses Pneumonia J18.9 Pulmonary cavitary lesion J98.4 Centrilobular emphysema J43.2 COPD type: emphysema Emphysema type: centrilobular Mycobacterium avium complex A31.0 Seronegative rheumatoid arthritis of both hands M06.041; M06.042 Chronic kidney disease, unspecified CKD stage N18.9 Chronic kidney disease stage: unspecified stage Time Spent (min) 35
[2024-12-14] VITALS (15 sets, daily range): BP systolic 110–165; BP diastolic 72–89; PULSE 61–82; RESP 17–22; TEMP 36.4–37; O2SAT 92–98
[2024-12-14] MEDS: VORICONAZOLE IV ×2 (02:00→12:49)
[2024-12-14] MEDS: SODIUM CHLORIDE 0.9% IV ×2 (02:00→12:49)
[2024-12-14] MEDS: piperacillin-tazobactam 3.375 GM in sodium chloride 0.9% (plus) 50 ML IV ×3 (05:26→23:07)
[2024-12-14] MEDS: oxyCODONE-APAP 5-325 mg Tablet 1.5 TAB PO ×3 (05:35→21:03)
[2024-12-14] MEDS: metoprolol succinate ER (24 HR) 50 mg Tablet PO (05:37)
[2024-12-14] MEDS: guaiFENesin-dextromethorphan UDC 10 mL PO ×4 (05:47→21:03)
[2024-12-14] MEDS: ATOVAQUONE 150 MG/ML 750 MG PO (08:29)
[2024-12-14 10:28] LABS: Hematocrit 36.0 % (37-53); Hemoglobin 11.70 g/dL (11.27-16.99); Mean Corpuscular HGB Conc 32.5 g/dL (30-55); Mean Corpuscular Hemoglobin 31.2 pg (27-33); Mean Corpuscular Volume 96.0 fl (82-101); Nucleated Red Blood Cells % 0 %; Platelet Count 255 10^3/cmm (157-399); Red Blood Count 3.75 10^6/uL (3.85-5.65); White Blood Count 18.55 10^3/uL (3.29-11.43)
[2024-12-14 10:46] LABS: Alanine Aminotransferase 51 U/L (0-41); Albumin Level 3.4 g/dL (3.5-5.2); Alkaline Phosphatase 46 U/L (40-130); Anion Gap 15.8 (5-19); Aspartate Amino Transferase 24 U/L (0-40); Blood Urea Nitrogen 33 mg/dL (6-20); Calcium 8.0 mg/dL (8.5-10.5); Carbon Dioxide 23 mmol/L (22-29); Chloride 101 mmol/L (98-107); Creatinine Clr Calc Pharmacy 45.9640; Globulin 1.7 g/dL (1.3-4.6); Glucose 240 mg/dL (65-115); Magnesium 1.7 mg/dL (1.7-2.3); Osmolality Calculated 295 mOsm/kg (285-295); Potassium 4.8 mmol/L (3.5-5.1); Sodium 135 mmol/L (136-145); Total Protein 5.1 g/dL (6.6-8.7)
--- NOTE | 2024-12-14 12:42 | PC.SOCIAL ---
IMM Updated Updated pt on IMM. No questions voiced. Provided pt a copy. Initialed, dated, & timed copy in chart.
--- NOTE | 2024-12-14 13:30 | P.CONIM_ITS ---
Providers/Reason For Consult 2 Consulting Physician/Specialty*: Pat Edwards MD/ Infectious Disease Reason for Consult*: pulmonary MAC, pneumonia Attending Physician: Dharmesh Dunne MD Primary Care Provider: Lorie Mccormack NP History of Present Illness History of Present Illness Arelis Hardin is a 58 year old male with a history of chronic obstructive pulmonary disease (COPD), chronic kidney disease (CKD) follows with renal transplant team at [facility], rheumatoid arthritis on tocilizumab and prednisone prn , congestive heart failure (CHF), adrenal insufficiency,. 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 He has been on treatment with RIF/EMB/azithromycin since January 2021 which she has tolerated well. IV amikacin was unable to be added due to difficulty with home infusions, patient's history of CKD, inability to monitor amikacin levels reliably as an outpatient. He was on inhaled amikacin however discontinued it in 2023 due to dysphonia and hemoptysis. Patient had been clinically stable until last seen in infectious disease clinic on September 28 2024. He had recently transferred care from pulmonology in [place] to [facility] pulmonology on 11/08/2024. He had been off oxygen, caring on ADLs, and on his last visit had mentioned that he was being considered for renal transplant at [facility]. 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 His most recent CT from September 15, 2024 had shown redemonstration of a large cavitary mass in the left lung apex measuring about 10 cm in diameter with thick irregular nodular capsule. There were numerous nodules scattered throughout much of the lung. His sputum has been persistently positive. Most recent susceptibility testing from September 15, 2024 had shown SAMIRA, sensitive to clarithromycin. In view of enlarging cavity and persistent sputum positivity, patient was referred to CT surgery at [facility] to assess for surgical resection. He presented for this appointment at [facility] on December 06, [address] Biggs where he was noted to be acutely ill. He was tachycardic, hypoxic on room air and ill-appearing. It was recommended that he be admitted at [facility] on this day, however patient refused, preferring to be closer to home and drove to [facility] ER instead. Imaging performed at [facility] had shown a new left lower lobe pneumonia which appeared to be adjacent to the known cavitary disease. He was admitted at [facility] on December 06, 2024 Where he was noted to be tachycardic, tachypneic, febrile and admitted in view of pneumonia. Leukocytosis was at 20,000. He started treatment with Unasyn and vancomycin. The next day antibiotics were changed to piperacillin/tazobactam and vancomycin. Voriconazole was additionally added empirically. During the admission course, rifampin was discontinued due to concern for drug interactions with voriconazole. Patient was evaluated by pulmonology and due to concern for lung abscess recommendation was to transfer for CT surgery and chest tube drainage. Additionally infectious disease service was not available until today as I was away out of town and off call.. Patient has been on a wait list to transfer to [facility] but this has not yet happened. Infectious disease service has been consulted today for further recommendations with regards to antibiotics and antifungals. Pertinent lab data summarized below. Review of vitals shows patient was last febrile on December 01, 2024 Tmax of 101.1 Fahrenheit. Review of chart shows patient has visited with his primary care provider on the with pneumonia and COPD exacerbation. He was given a prescription for levofloxacin to 50 mg daily for 5 days and a steroid taper over 5 days with prednisone. Per patient he also appears to have received doxycycline and Augmentin around the same time.His WBC count on admission was at 20.54, continue to have a persistent leukocytosis trending down to 12,000 on 12/12/2024, however today up again at 18.5. He is currently requiring 4 L/min supplemental O2 via oxy mask. Last CT chest performed on 12/12/2024 showed a cavitated left upper lobe lesion 9.7 cm, similar to previous however also with a focal consolidation in the superior and medial aspect of the left lower lobe read as spread of fungal infection . Of note the comparative read has been compared to CAT scan from September 15, 2024. Review of Systems 2 General: Reports: 10 or more systems reviewed and unremarkable except in HPI and below Const: Denies: fever(s), chills or body aches Eyes: Denies: change in vision, blurry vision or photophobia ENMT: Reports: hoarseness; Denies: throat pain, enlarged tonsils, odynophagia or nasal congestion Card: Denies: chest pain, palpitations, irregular heart rhythm, edema, swelling of feet/ankles, lightheadedness, pre-syncope, dyspnea on exertion or orthopnea Resp: Reports: dyspnea and productive cough; Denies: non-productive cough, wheezing, stridor, pain on inspiration, change in phlegm color, hemoptysis or chest congestion GI: Denies: abdominal pain, nausea, vomiting, hematemesis, coffee ground emesis, dysphagia, heartburn, diarrhea, constipation, GI cramping, change in stool character, hematochezia or melena : Denies: flank pain, dysuria, urinary frequency, urinary urgency, urinary hesitancy or hematuria Musc: Denies: neck pain, back pain, extremity pain, joint swelling, joint warmth or deformity Neuro: Denies: headache(s), numbness in extremities, weakness in extremities, sensory changes, difficulty walking, frequent falls, dizziness, vertigo, behavioral changes, Slurred speech present or seizure-like activity Psych: Denies: anxiety, depression, suicidal ideation or homicidal ideation Endo: Denies: polyuria, polydipsia, tired all the time, cold intolerance or hot flashes Liborio/Lymph: Denies: easy bruising or easy bleeding Medications/Allergies Home Medications ?Medication ?Instructions ?Recorded ?Confirmed ?Last Taken ?Type glucometer testing kit #1 ea 11/13/20 12/06/24 Unkn own Rx cholecalciferol (vitamin D3) 25 25 mcg PO DAILY ##0 12/06/24 12/04/24 History mcg (1,000 unit) capsule (Vitamin D3) test strips #100 ea 09/11/21 12/06/24 Un known Rx cyanocobalamin (vitamin B-12) 1,000 mcg PO DAILY 01/0212/06/24 11/01/24 History 1,000 mcg tablet (Vitamin B-12) aspirin 81 mg chewable tablet 1 tab PO DAILY #90 tabs 01/03/22 12/06/24 12/05/24 Rx ketoconazole 2 % shampoo 1 applic topical .2x weekly #120 mL 01/14/22 12/06/24 11/12/24 Rx clobetasol 0.05 % scalp solution 1 applic topical JAZMIN Y #50 mL 04/24/22 12/06/24 11/08/24 Rx diabetic shoes with 3 inserts #1 ea 09/19/22 12/06/24 Unknown Rx lisinopril 20 mg tablet 20 mg PO BID 90 days #180 ta bs 03/03/23 12/06/24 12/05/24 Rx ezetimibe 10 mg tablet 10 mg PO DAILY #90 tabs 05/1812/06/24 12/06/24 09:00 Rx albuterol sulfate 90 mcg/actuation 2 puff inhalation Q 4H PRN 01/18/24 12/06/24 12/04/24 Rx aerosol inhaler Shortness Of Breath 30 days #8.5 grams pantoprazole 40 mg tablet,delayed 40 mg PO DAILY #90 t abs 02/02/24 12/06/24 12/05/24 Rx release Diabetic Shoes #1 ea 02/18/24 12/06/24 Unkn own Rx ethambutol 400 mg tablet 1,000 mg (2.5 x 400 mg) PO Q PM 90 08/10/24 12/06/24 12/04/24 19:00 Rx days #225 tabs rifampin 300 mg capsule 600 mg (2 x 300 mg) PO QAM 3 0 days 08/10/24 12/06/24 12/05/24 09:00 Rx #60 caps apremilast 30 mg tablet (Otezla) 30 mg PO BID #60 tabs 08/15/24 12/06/24 12/05/24 08:00 Rx prednisone 20 mg tablet 20 mg PO DAILY joint pain fl are 09/05/24 12/06/24 11/15/24 Rx #90 tabs citalopram 40 mg tablet 40 mg PO DAILY 10/27/2411/1712/05/24 09:00 History gabapentin 800 mg tablet 800 mg PO TID 10/27/2412/0612/04/24 History ramelteon 8 mg tablet 8 mg PO BEDTIME 10/27/2412/04/24 20:00 History ipratropium 0.5 mg-albuterol 3 mg 3 ml inhalation Q6H 30 days #90 mL 11/07/24 12/06/24 12/04/24 Rx (2.5 mg base)/3 mL nebulization soln nicotine 21 mg/24 hr daily 1 patch transdermal DAILY # 28 ea 11/08/24 12/06/24 Unknown Rx transdermal patch roflumilast 250 mcg tablet 250 mcg PO DAILY 4 weeks #3 0 tabs 11/08/24 12/06/24 12/05/24 Rx (Daliresp) tocilizumab 162 mg/0.9 mL 162 mg (0.9 mL) SUBCUT Q7D # 3.6 mL 11/10/24 12/06/24 11/15/24 Rx subcutaneous syringe (Actemra) atovaquone 750 mg/5 mL oral 750 mg PO DAILY 11/15/24 1 12/05/24 History suspension budesonide 160 mcg-glycopyr 9 2 inh inhalation BID 12/06/24 12/05/24 09:00 History mcg-formot 4.8 mcg/actuation HFA inhaler (Breztri Aerosphere) hydroxychloroquine 200 mg tablet 200 mg PO BID #180 ta bs 11/17/24 12/06/24 12/05/24 09:00 Rx oxycodone-acetaminophen 7.5 mg-325 1 tab PO QID PRN pa in 7 days #28 11/21/24 12/06/24 Unknown Rx mg tablet tabs prasugrel HCl 10 mg tablet See Rx Instructions .Route 11/28/24 12/06/24 12/05/24 Rx .COMPLEX #90 tabs cam boot, left #1 ea 11/29/24 12/06/24 Unkn own Rx levofloxacin 250 mg tablet 250 mg PO DAILY #5 tabs 12/06/24 12/05/24 Rx cyclobenzaprine 10 mg tablet 10 mg PO TID 12/06/2412/05/24 13:00 History fluocinolone 0.01 % scalp oil and See Rx Instructions .Route .COMPLEX 12/06/24 12/06/24 Unknown History shower cap latanoprost 0.005 % eye drops 1 drp ophthalmic (eye) Q PM 12/06/24 12/06/24 Unknown History metoprolol succinate 50 mg 50 mg PO DAILY 12/06/2412/05/24 History tablet,extended release 24 hr Allergies Allergy/AdvReac Type Severity Reaction Status Date / Time venom-wasp Allergy Severe ALGY-Hives Verified 12/01/24 10:57 Alpha-Gal Allergy Unknown Verified 12/01/24 10:57 (Syahaguzw-Xrdxr-6,3-Gala Current Medications Generic Name Dose Route Start Last Admin Trade Name Freq PRN Reason Stop Dose Admin Acetaminophen 650 mg 12/09/24 20:30 12/14/24 09:39 Acetaminophen 325 Mg Tablet PO 650 mg Q4H PRN Administration MILD PAIN OR INCREASE TEMP Albuterol/Ipratropium 3 ml 12/06/24 02:00 12/14/24 08:54 Ipratropium-Albuterol 3 Ml Neb INHALATION 3 ml Q6H.RESP SAIDA Administration Aspirin 81 mg 12/07/24 05:00 12/14/24 05:36 Aspirin 81 Mg Chew Tablet PO 81 mg DAILY SAIDA Administration Atovaquone 750 mg 12/09/24 18:00 12/14/24 08:29 Atovaquone 150 Mg/Ml Syringe PO 750 mg BIDWM SAIDA Administration Azithromycin 500 mg 12/08/24 10:36 12/14/24 05:37 Azithromycin 250 Mg Tablet PO 500 mg DAILY SAIDA Administration Protocol Budesonide 0.5 mg 12/06/24 08:00 12/14/24 08:54 Budesonide 0.5 Mg/2 Ml Neb INHALATION 0.5 mg BID.RESPIRATORY SAIDA Administration Dexamethasone 4 mg 12/13/24 05:00 12/14/24 05:28 Dexamethasone 4 Mg/Ml Inj PO 4 mg DAILY SAIDA Administration Diltiazem HCl 60 mg 12/07/24 09:20 12/14/24 08:29 Diltiazem 30 Mg Tablet PO 60 mg Q6H SAIDA Administration Ezetimibe 10 mg 12/07/24 05:00 12/14/24 05:35 Ezetimibe 10 Mg Tablet PO 10 mg DAILY SAIDA Administration Escitalopram Oxalate 10 mg 12/09/24 05:00 12/14/24 05:37 Escitalopram 10 Mg Tablet PO 10 mg DAILY SAIDA Administration Ethambutol HCl 1,200 mg 12/08/24 17:00 12/13/24 16:37 Ethambutol 400 Mg Tablet PO 1,200 mg QPM SAIDA Administration Gabapentin 300 mg 12/07/24 05:00 12/14/24 05:36 Gabapentin 300 Mg Capsule PO 300 mg BID SAIDA Administration Guaifenesin 600 mg 12/10/24 17:00 12/14/24 05:36 Guaifenesin 600 Mg Tablet PO 600 mg BID SAIDA Administration Guaifenesin/Dextromethorphan 10 ml 12/06/24 03:19 12/14/24 09:39 Guaifenesin-Dextromethorphan Udc 10 Ml PO 10 ml Q4H PRN Administration COUGH Piperacillin Sod/Tazobactam 50 mls @ 12.5 mls/hr 12/08/24 09:30 12/14/24 11:22 Sod 3.375 gm/ Sodium Chloride IV Infused Q8H SAIDA Infusion Protocol Voriconazole 332 mg/ Sodium 250 mls @ 125 mls/hr 12/09/24 10:00 12/14/24 12:49 Chloride IV 125 mls/hr Q12H SAIDA Administration Vancomycin HCl 1,000 mg/ 250 mls @ 250 mls/hr 12/11/24 06:30 12/14/24 09:08 Sodium Chloride IV Infused Q24H SAIDA Infusion Latanoprost 1 drop 12/06/24 18:00 12/13/24 16:38 Latanoprost 0.005% Op Soln 2.5 Ml Btl EYE-BOTH 1 drop QPM SAIDA Administration Lisinopril 20 mg 12/10/24 17:00 12/14/24 05:37 Lisinopril 20 Mg Tablet PO 20 mg BID SAIDA Administration Magnesium Oxide 400 mg 12/08/24 09:30 12/14/24 05:36 Magnesium Oxide 400 Mg Tablet PO 400 mg BID SAIDA Administration Metoprolol Succinate 50 mg 12/07/24 05:00 12/14/24 05:37 Metoprolol Succinate Er (24 Hr) 50 Mg Tablet PO 50 mg DAILY SAIDA Administration Nicotine 1 patch 12/06/24 14:42 12/14/24 06:34 Nicotine 21 Mg Patch TRANSDERMA 1 patch DAILY SAIDA Administration Non-Formulary Medication 8 mg 12/06/24 21:00 12/13/24 22:03 Ramelteon PO Not Given BEDTIME SAIDA Ondansetron HCl 4 mg 12/06/24 00:35 12/10/24 20:17 Ondansetron 2 Mg/Ml Sdv 2 Ml IVP 4 mg Q8H PRN Administration vomiting, or N/V if npo Oxycodone/Acetaminophen 1.5 tab 12/13/24 22:08 12/14/24 05:35 Oxycodone-Apap 5-325 Mg Tablet PO 1.5 tab Q6H PRN Administration MODERATE PAIN Pantoprazole Sodium 40 mg 12/07/24 05:00 12/14/24 05:[address] 40 Mg Tablet PO 40 mg DAILY SAIDA Administration Prasugrel 10 mg 12/07/24 05:00 12/14/24 05:36 Prasugrel 10 Mg Tablet PO 10 mg DAILY SAIDA Administration Sodium Bicarbonate 650 mg 12/07/24 09:22 12/14/24 12:50 Sodium Bicarbonate 650 Mg Tablet PO 650 mg TID SAIDA Administration Vitamin D 1,000 unit 12/07/24 05:00 12/14/24 05:36 Cholecalciferol (Vitamin D3) 1,000 Unit Tablet PO 1,000 unit DAILY SAIDA Administration Additional Medication Information Azithromycin 500 mg p.o. daily Rifampin: On since January 2021, discontinued current admission due to interaction with voriconazole Piperacillin/tazobactam since 12/08/2024 Ethambutol 1200 mg p.o. daily Vancomycin since 12/06/2024 Unasyn 10 - 23 Dexamethasone 4 mg p.o. daily Voriconazole 332 mg IV every 12 hours since 12/09/2024 PFSH Acute 2 PFSH: Medical History COPD with exacerbation Occlusion of left vertebral artery MRA [facility] 08/10/2024 Suspected Chronically Occluded Distal Left Vertebral Artery Wheezing Pneumonia COPD exacerbation Plaque psoriasis Seronegative rheumatoid arthritis of both hands Hypertension PAD (peripheral artery disease) Chronic kidney disease Dyslipidemia CAD (coronary artery disease) Psoriatic arthritis Anxiety Severe tobacco use disorder Alpha galactosidase deficiency Mycobacterium avium complex Immunization counseling High risk medication use Rheumatoid arthritis Insomnia Hiatal hernia Gastritis and duodenitis Acid reflux Diverticulosis PCK (polycystic kidney disease) Positive ANASTASIA (antinuclear antibody) Polymyalgia rheumatica CHF (congestive heart failure) Adrenal insufficiency Chronic use of steroids Acute kidney injury Sepsis Right forearm injury Elevated platelet count COPD (chronic obstructive pulmonary disease) Type 2 diabetes mellitus Lupus Fibromyalgia Surgical History Status post insertion of iliac artery stent Bilateral History of colonoscopy with polypectomy 2011 Status post hernia repair Status post cholecystectomy Status post angioplasty with stent Dr Kay 2014 Family History Father Diabetes CAD (coronary artery disease) Lung disease Family/Other Dementia Lung disease Sister Suicide Mother Crohn's disease Other Autoimmune disease Chronic kidney disease (CKD) Hyperlipidemia Hypertension Thyroid disease Denies family history of Liver disease Aneurysm Clotting disorder Psychiatric illness Bleeding disorder Cancer Stroke Social History Smoking and tobacco/nicotine status: never used tobacco/nicotine Second hand smoke exposure: No Alcohol intake: former Substance/Drug Use: never Lives independently: Yes Household members: none Marital status: Current occupational status: disabled Do you think of yourself as: Straight/Heterosexual Current gender identity: Male Vitals/I&O/Wt Last Vital Signs Temp 97.5 F L 12/14/24 11:51 Pulse 61 12/14/24 11:51 Resp 18 12/14/24 11:51 BP 115/72 12/14/24 11:51 Pulse Ox 92 12/14/24 11:51 O2 Del Method Oxymask 12/14/24 11:51 O2 Flow Rate 4 12/14/24 08:54 FiO2 4 12/06/24 20:00 12/13/24 12/14/24 12/14/24 22:59 06:59 14:59 Intake Total 660 / 2320 250 / 2570 780.000 / 780.000 Output Total 1600 / 1600 250 / 1850 Balance -940 / 720 0 / 720 780.000 / 780.000 Weight last 48 hrs Weight 82.962 kg Weight 81.238 kg Physical Exam 2 Narrative: General: sitting in bed, multiple bouts of cough in conversation HEENT: PERRLA, pupils bilaterally equal and reactive, pallors not present Chest: Bronchial breath sounds CVS: S1-S2 regular, no murmurs, no tachycardia, no gallops, no rubs Abdomen: Soft, nontender, no organomegaly, bowel sounds present Neuro: No focal deficits, no facial deformity, AO x3, power 5/5 in all limbs Data 12/14/24 10:05 12/14/24 10:05 Micro: Microbiology 12/06/24 03:38 Fungal Smear - Final Sputum - Expectorated Sputum NAME: Arelis Hardin LOC: [facility] #: [id number] AGE/SX: 58/M ROOM: 273 R E12/05/[address]: Dharmesh Dunne MD : 1965 BED: 1 D IS: FAX #: STATUS: ADM IN TLOC: Spec #: [id number] Keo: 12/06/24 Status: COMP Req #: [id number] Recd: 12/06/[address]: Jam Solo MD Src: URINE,VOID SpDesc: Ordered: Legionella AG, Bacterial AG Procedure Result Verified Site Legionella Antigen STAT Final 12/06/24 Legion Patient Result Presumptive Negative for L. pneumophila Bacterial Antigen Final 12/06/24 Streptococcus Group B Negative for Streptococcus Group B Antigen Haemophilus influenzae B Negative or Haemophilus influenzae B Antigen S. pneumoniae Antigen Negative for S. pneumoniae Antigen N.meningitidis A,C,Y,W135 Negative for N.meningitidis A,C,Y,W135 Antigen N.meningitidis B/E.coli Negative for N.meningitidis B/E.coli K1 Antigen NAME: Arelis Hardin LOC: [facility] #: [id number] AGE/SX: 58/M ROOM: 273 R E12/05/[address]: Dharmesh Dunne MD : 1965 BED: 1 D IS: FAX #: STATUS: ADM IN TLOC: Spec #: [id number] Keo: 12/06/24 Status: COMP Req #: [id number] Recd: 12/06/[address]: Jam Solo MD Src: Sputum SpDesc: Expec Sput Ordered: Cult. Fungus Procedure Result Verified Site Smear Final 12/14/24-1014 QD SEE NOTE CULTURE, FUNGUS W/SMEAR NOT HAIR, SKIN, BLOOD Micro Number: [id number] Test Status: Preliminary Specimen Source: Sputum Specimen Quality: Adequate Smear: No fungal elements seen. Result: No fungi isolated to date. Culture is examined weekly for a total of 28 days incubation. A change in status will result in an updated culture report. THIS TEST WAS PERFORMED AT: [facility] [address] ARTIS MANDEL MD CULTURE, FUNGUS W/SMEAR NOT HAIR, SKIN, BLOOD Micro Number: [id number] Test Status: Final Specimen Source: Sputum Specimen Quality: Adequate Smear: No fungal elements seen. Result: Unable to report due to specimen contamination and/or toxicity. THIS TEST WAS PERFORMED AT: [facility] [address] ARTIS MANDEL MD Smear Preliminary (changed) 12/10/24-1726 QD SEE NOTE CULTURE, FUNGUS W/SMEAR NOT HAIR, SKIN, BLOOD Micro Number: [id number] Test Status: Preliminary Specimen Source: Sputum Specimen Quality: Adequate Smear: No fungal elements seen. Result: No fungi isolated to date. Culture is examined weekly for a total of 28 days incubation. A change in status will result in an updated culture report. THIS TEST WAS PERFORMED AT: [facility] [address] [address] ARTIS MANDEL MD NAME: Arelis Hardin LOC: [facility] #: [id number] AGE/SX: 58/M ROOM: 273 R E12/05/[address]: Dharmesh Dunne MD : 1965 BED: 1 D IS: FAX #: STATUS: ADM IN TLOC: Spec #: [id number] Keo: 12/06/24 Status: COMP Req #: [id number] Recd: 12/06/[address]: Jam Solo MD Src: Sputum SpDesc: Expec Sput Ordered: SPU Cult & GS Procedure Result Verified Site Gram Stain Final 12/06/24-839 Result MANY WHITE BLOOD CELLS FEW GRAM NEGATIVE RODS Sputum Culture Final 12/10/24-1306 Organism 1 Pseudomonas aeruginosa Growth MODERATE DAY 2 P aerugino [facility] RX --------- ------ * Aztreonam <=4 S * Cefepime <=8 S * Ciprofloxacin <=1 S * Imipenem 2 S * Levofloxacin <=2 S * Piperacillin/Tazobactam <=16 S Amikacin sensitivity N/A at our lab on current panels Sputum Culture Preliminary (changed) 12/07/24 Organism 1 Gram Negative Rods Growth MODERATE DAY 1, RESULTS TO FOLLOW NAME: Arelis Hardin LOC: [facility] U #: [id number] AGE/SX: 58/M ROOM: 273 R E12/05/[address]: Dharmesh Dunne MD : 1965 BED: 1 D IS: FAX #: STATUS: ADM IN TLOC: Spec #: [id number] Keo: 12/06/24 Status: COMP Req #: [id number] Recd: 12/06/[address]: Jam Solo MD Src: Blood SpDesc: Ordered: Bcult Procedure Result Verified Site Blood Culture Final 12/11/24 NO GROWTH AFTER 5 DAYS Blood Culture Preliminary (changed) 12/07/24 NEGATIVE TO DATE Blood Culture Preliminary (changed) 12/06/24 SPECIMEN COLLECTED NAME: Arelis Hardin LOC: [facility] U #: [id number] AGE/SX: 58/M ROOM: 273 R E12/05/[address]: Dharmesh Dunne MD : 1965 BED: 1 D IS: FAX #: STATUS: ADM IN TLOC: Spec #: [id number] Keo: 12/06/24 Status: COMP Req #: [id number] Recd: 12/06/[address]: Jam Solo MD Src: Blood SpDesc: Ordered: Bcult Procedure Result Verified Site Blood Culture Final 12/11/24 NO GROWTH AFTER 5 DAYS Blood Culture Preliminary (changed) 12/07/24 NEGATIVE TO DATE Blood Culture Preliminary (changed) 12/06/24 SPECIMEN COLLECTED NAME: Arelis Hardin LOC: LAB U #: [id number] AGE/SX: 58/M ROOM: R E09/15/[address]: Lorie Mccormack : 1965 BED: D IS: FAX #: STATUS: DEP CLI TLOC: Spec #: [id number] Keo: 09/15/24-1220 Status: COMP Req #: [id number] Recd: 09/15/24-[address]: Pat Edwards MD Src: Sputum SpDesc: Expec Sput Ordered: Mycobac w/Cult Comments: Comment need sensitivities on the isolate!! Procedure Result Verified Site Mycobacterial Smear Final 11/29/24-1532 QD SEE NOTE Organism 1 Mycobacterium avium complex MYCOBACTERIA, CULTURE, WITH FLUOROCHROME SMEAR Micro Number: [id number] Test Status: Preliminary Specimen Source: Sputum Specimen Quality: Adequate Smear: Many (4 +) acid-fast bacilli seen using the fluorochrome method. Result: Culture results to follow. Final reports of negative cultures can be expected in approximately six weeks. Positive cultures are reported immediately. THIS TEST WAS PERFORMED AT: [facility] [address] [place] [address] ARTIS MANDEL MD MYCOBACTERIA, CULTURE, WITH FLUOROCHROME SMEAR Micro Number: [id number] Test Status: Preliminary Specimen Source: Sputum Specimen Quality: Adequate Smear: Many (4 +) acid-fast bacilli seen using the fluorochrome method. Result: Acid-fast bacilli isolated. Identification is in progress. THIS TEST WAS PERFORMED AT: [facility] [place] [address] [facility] [place] [address] ARTIS MANDEL MD MYCOBACTERIA, CULTURE, WITH FLUOROCHROME SMEAR Micro Number: [id number] Test Status: Preliminary Specimen Source: Sputum Specimen Quality: Adequate Smear: Many (4 +) acid-fast bacilli seen using the fluorochrome method. Result: Acid Fast isolate, MALDI identified as Mycobacterium avium complex Isolate forwarded to [employer] for Susceptibility Testing. THIS TEST WAS PERFORMED AT: [facility] [address] [place] [address] ARTIS AMNDEL MD MYCOBACTERIA, CULTURE, WITH FLUOROCHROME SMEAR Micro Number: [id number] Test Status: Final Specimen Source: Sputum Specimen Quality: Adequate Smear: Many (4 +) acid-fast bacilli seen using the fluorochrome method. Result: Acid Fast isolate, MALDI identified as Mycobacterium avium complex Isolate forwarded to [employer] for Susceptibility Testing. THIS TEST WAS PERFORMED AT: [facility] [place] [address] [facility] [place] [address] ARTIS MANDEL MD * This is a corrected result. * A prior result that was reported as final has been changed. * This is a corrected result. * A prior result that was reported as final has been changed. MYCOBACTERIUM AVIUM COMPLEX CRISTIAN PANEL ORGANISM: MYCOBACTERIUM AVIUM COMPLEX AMIKACIN: 16 S mcg/mL AMIKACIN (LIPOSOMAL, INHALED): 16 S mcg/mL CIPROFLOXACIN: 4 mcg/mL CLARITHROMYCIN: 4 S mcg/mL CLOFAZIMINE: 0.12 mcg/mL DOXYCYCLINE: 8 mcg/mL LINEZOLID: 32 R mcg/mL MINOCYCLINE: 8 mcg/mL MOXIFLOXACIN: 2 I mcg/mL RIFAMPIN: 4 mcg/mL RIFABUTIN: 1 mcg/mL STREPTOMYCIN: 32 mcg/mL Drug Concentrations are expressed in mcg/mL. S=Susceptible, I=Intermediate, R=Resistant CRISTIAN interpretations are based on recently, published CLSI guidelines. Only the CRISTIAN value is reported when CLSI guidelines are not available. This test was performed using a kit that has not been cleared or approved by the U.S. Food and Drug Administration. The analytical performance characteristics of this test have been determined by [employer]. This test should not be used for diagnosis without confirmation by other medically established means. Performing Sites [employer]/[facility],, [address] [place] [address] Maintenance Specialist: Clau Zurita MD,PhD,VELVET * This is a corrected result. * A prior result that was reported as final has been changed. NAME: Arelis Hardin LOC: [facility] U #: [id number] AGE/SX: 58/M ROOM: 273 R E12/05/[address]: Dharmesh Dunne MD : 1965 BED: 1 D IS: FAX #: STATUS: ADM IN TLOC: Spec : [id number] Keo: 12/07/24 Status: COMP Req : [id number] Recd: 12/07/[address]: Dharmesh Dunne MD Ordered: Aspergillis G. Test Low Normal High Flag Reference Site Aspergillus AG NOT DETECTED QD REFERENCE RANGE: <0.50, NOT DETECTED An Index <0.50 is considered to be negative. An Index >=0.50 is considered to be positive. A positive result for patients being treated with piperacillin-tazobactam and other beta-lactam antibiotics such as amoxicillin-clavulanate may be a false positive due to cross reactivity and should be viewed in conjunction with all clinical findings. Positive results with this assay has also been reported in patients infected with Penicillium marneffei and Cryptococcus. THIS TEST WAS PERFORMED AT: [facility] [address] [place] [address] CLAU ZURITA MD,PHD,VELVET Index <0.50 QD NAME: Arelis Hardin LOC: [facility] U #: [id number] AGE/SX: 58/M ROOM: 273 R E12/05/[address]: Dharmesh Dunne MD : 1965 BED: 1 D IS: FAX #: STATUS: ADM IN TLOC: Spec : [id number] Keo: 12/06/24 Status: COMP Req : [id number] Recd: 12/06/[address]: Jam Solo MD Ordered: Histo Gal Ur Test Low Normal High Flag Reference Site Histo Gal Ur <0.2 ng/mL QD NAME: Arelis Hardin LOC: [facility] U #: [id number] AGE/SX: 58/M ROOM: 273 R E12/05/[address]: Dharmesh Dunne MD : 1965 BED: 1 D IS: FAX #: STATUS: ADM IN TLOC: Spec : [id number] Keo: 12/05/24 Status: COMP Req : [id number] Recd: 12/05/[address]: Carol Barnett MD Ordered: 4 plex test Test Low Normal High Flag Reference Site Covid PCR Ceph NEGATIVE Negative Influenza A Cep NEGATIVE Negative Influenza B Cep NEGATIVE Negative RSV Ceph NEGATIVE Negative NAME: Arelis Hardin LOC: [facility] U #: [id number] AGE/SX: 58/M ROOM: 273 R E12/05/[address]: Dharmesh Dunne MD : 1965 BED: 1 D IS: FAX #: STATUS: ADM IN TLOC: Spec : [id number] Keo: 12/05/24 Status: COMP Req : [id number] Recd: 12/06/[address]: Jam Solo MD Ordered: Fungitell Assay Test Low Normal High Flag Reference Site Fungitell Glu <31 <60 pg/mL QD Interpretation Negative Negative CT Chest: My impression: Per personal interpretation and discussion with Dr. Small from radiology, there is a large cavity 9.7 cm with thick walled consolidative component. Adjacent to the cavity extending into the left lower lobe and medial lobe is a large focal consolidation. No obvious air-fluid level is noted on without contrast CT on 12/12/2024. Significant worsening noted since August 2024. Whether or not these infiltrates are fungal in nature cannot be commented on based on limited imaging. Radiologist's impression: [address] [place] [address] CT Scan Report Signed Patient: Arelis Hardin Unit #: [id number] : 1965 Age/Sex: 58 / M ADM Date: 12/05/24 Loc: [facility] Room/Bed: [facility] Attending Dr: Dharmesh Dunne MD Ordering Provider/Ordering MD: Dharmesh Dunne MD Date of Service: 12/12/24 Procedure(s): CT chest con [id number] Accession Number(s): [id number] Report Number: [id number] PROCEDURE INFORMATION: Exam: CT Chest Without Contrast; Diagnostic Exam date and time: 12/12/2024 9:04 PM Age: 58 years old Clinical indication: Shortness of breath; Additional info: Follow up lung cavity and 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 Radiation optimization: All CT scans at this facility use at least one of these dose optimization techniques: automated exposure control; mA and/or kV adjustment per patient size (includes targeted exams where dose is matched to clinical indication); or iterative reconstruction. COMPARISON: CT chest wo con [id number] 09/15/2024 1:29 PM RADIATION DOSE METRICS: Total DLP (mGy-cm): 447.7 FINDINGS: Lungs: Cavitated left upper lobe lesion is approximately the same size compared to prior; there is new large focal consolidation in the superior and medial aspect of the left lower lobe as well as scattered foci of scattered consolidation, concerning for spread of fungal infection. Scattered faint bilateral pulmonary nodules could also suggest spread of fungal infection. Pleural spaces: Unremarkable. No pneumothorax. No pleural effusion. Heart: Unremarkable. No cardiomegaly. No pericardial effusion. Lymph nodes: Unremarkable. No enlarged lymph nodes. Vasculature: Aortic and coronary atherosclerosis. Liver: Innumerable hepatic cysts, likely part of the same process. Kidneys: Polycystic kidney disease. Bones/joints: Unremarkable. No acute fracture. Soft tissues: Unremarkable. [id number] bilateral emphysema. CT/CT chest wo con [id number] IMPRESSION: Cavitated left upper lobe lesion is approximately the same size compared to prior (up to 9.7 cm in maximum transverse dimension); there is new large focal consolidation in the superior and medial aspect of the left lower lobe as well as scattered foci of scattered consolidation, concerning for spread of fungal infection. Ordering Provider/Ordering MD: Carol Barnett MD Date of Service: 12/05/24 Procedure(s): XR chest 2V* [id number] Accession Number(s): [id number] Report Number: [id number] PROCEDURE INFORMATION: Exam: XR Chest Exam date and time: 12/05/2024 9:34 PM Age: 58 years old Clinical indication: Shortness of breath; Prior surgery; Surgery date: 6+ months; Surgery type: Sleep apnea device cardiac stents; Additional info: Shortness of breath/cough TECHNIQUE: Imaging protocol: Radiologic exam of the chest. Views: 2 views. COMPARISON: CR XR chest 2V* [id number] 12/01/2024 11:19 AM, chest CT from 09/15/2024 FINDINGS: Tubes, catheters and devices: A neurostimulator power pack still overlies the right chest. Lungs: A left upper lobe cavitary lesion currently measures 6.9 x 6.9 cm which is slightly larger than on the recent prior. There is persisting hazy opacity around this lesion extending into the hilum. There are some new reticulated opacities in both lung bases. Pleural spaces: Unremarkable. No pleural effusion. No pneumothorax. Heart/Mediastinum: Unremarkable. No cardiomegaly. Bones/joints: Unremarkable. XR/XR chest 2V* [id number] IMPRESSION: 1. Persisting and slightly increased left upper lobe cavitary lesion containing a small fluid. 2. There are new hazy and reticulated opacities in the lung bases. A&P Assessment and plan 1. Pseudomonas pneumonia: 2. Lupus: 3. Polymyalgia rheumatica: 4. Rheumatoid arthritis: 5. COPD (chronic obstructive pulmonary disease): 6. SAMIRA (mycobacterium avium-intracellulare): 7. Pulmonary cavitary lesion: Plan: 58-year-old male with a past medical history of COPD, adrenal insufficiency, CKD with baseline creatinine of 2.1, known pulmonary cavitary SAMIRA for which she has been on treatment, with increasing size of left upper lobe cavity and persistent sputum positivity for which he was referred to CT surgery for consideration of surgical lobectomy for increasing cavity size. He has been on treatment with azithromycin/ethambutol/rifampin since January 2021 with clinical stability to improvement until at least September 2024 when he was last seen in the clinic. Patient was unable to tolerate inhaled amikacin and discontinued use in 2023 due to dysphonia and hemoptysis, both of which resolved after discontinuing inhaled amikacin. IV amikacin was unable to be added to his regimen due to CKD, fluctuating kidney function, inability to obtain amikacin trough monitoring as an outpatient, being able to arrange outpatient antibiotics. He was previously followed by [facility] pulmonology in [place] and has recently transferred care to [facility] pulmonology. There was suspicion for possible aspergilloma on review of CT imaging as outpatient. More recently around December 01, 2024 he developed fever chills increased expectoration at which time he was noted to have consolidation around the known cavity on chest x-ray. He followed up with CT surgery at [facility] (Dr. biggs) on December 06, 2024 where he was noted to be acutely ill and was recommended to be admitted. He has been found to have a dense consolidation involving the left middle and lower lobes which appeared to be adjacent/contiguous to the known cavity. Sputum culture has revealed Pseudomonas aeruginosa for which patient has been on treatment with piperacillin/tazobactam. Sputum fungal culture from expectorated sputum is negative to date. Peripheral fungal markers for IFI including serum Aspergillus galactomannan and serum beta glucan are negative. Patient is chronically on steroids, currently on dexamethasone 4 mg p.o. daily; he was taking Prednisone 40mg daily for one month prior to admission as he thought he had an arthritis flare. During the course of his admission, patient has become afebrile, however continues to have a persisting leukocytosis. Perilesional opacities appear to have worsened between December 01 to December 05, 2024 on serial chest x-ray. CT to CT comparison on current admission is not available as previous images dated back to August 2024. I have requested CT from [facility] on 12/[address] [employer] chest on 12/12 here showing the known cavitary upper lesion measuring 9.7 cm with focal consolidation in the superior and medial aspect of the left lower lobe and scattered foci of scattered consolidation. Differentials for pericavity consolidation/pneumonia at this time include worsening SAMIRA infection , superadded bacterial pneumonia with Pseudomonas versus possible invasive fungal infection vs development of abscess. Recommend tissue diagnosis either via bronchoscopic evaluation with fungal and bacterial cultures OR IR guided if feasible. Per discussion with pulmnology, with his current respiratory status he is considered high risk without backup availability of CT surgery. Plan: Continue piperacillin/tazobactam for now. Resume rifampin 600mg po daily for cavitary SAMIRA Continue ethambutol 1200mg daily and azithromycin 500mg for pulmonary SAMIRA Add IV amikacin, renally dosed with close level monitoring given CKD. Last SAMIRA isolate susceptiblity at 16S. Discontinue IV vancomycin as no evidence of MRSA or Enterococcus on cultures. Discontinue voriconazole at this time as no convincing evidence of IFI based on fungal markers and microbiological data, however recommend tissue diagnosis with culture and path to be certain. Continue longstanding Atovaquone 1500mg daily ppx for PJP alongside chronic steroid use. Agree with attempts to transfer to higher center for CT surgery, attempt at tissue diagnosis PDMP PDMP Reviewed: Not Reviewed Coding Level of Care Code Acute Code for Chg Fwd High [facility] includes number and complexity of problems actively addressed during encounter, amount and/or complexity of data reviewed/ordered and described risk of complication, morbidity or mortality of management as documented Diagnoses Pseudomonas pneumonia J15.1 Lupus Polymyalgia rheumatica M35.3 Rheumatoid arthritis M06.9 COPD (chronic obstructive pulmonary disease) J44.9 SAMIRA (mycobacterium avium-intracellulare) A31.0 Pulmonary cavitary lesion J98.4
--- NOTE | 2024-12-14 16:39 | P.PN_ITS ---
Subjective 2 Subjective: 58-year-old male admitted and treated for left upper lung pneumonia with Zosyn covering Pseudomonas from his respiratory sample. He also has a history of MAC which is being treated. The patient was empirically treated with voriconazole for possible Aspergillus but white count continues to be elevated. Patient was seen by ID Dr. Edwards today and vancomycin discontinued voriconazole discontinued due to no definite isolate and not working. Zosyn discontinued and amikacin is added. She recommends tissue diagnosis as the patient's pneumonia is worsening from CAT scan progression of pneumonic infiltrate seen on CT scan done 12/12/2024. Patient and his daughter report they are willing to expand their travel to any hospital that will accept him Medications: Medication Review Details: Azithromycin 500 mg p.o. daily Rifampin: On since January 2021, discontinued current admission due to interaction with voriconazole Piperacillin/tazobactam since 12/08/2024 Ethambutol 1200 mg p.o. daily Vancomycin since 12/06/2024 Unasyn Dexamethasone 4 mg p.o. daily Voriconazole 332 mg IV every 12 hours since 12/09/2024 Vitals/I&O/Wt Last Vital Signs Temp 97.7 F 12/14/24 16:31 Pulse 73 12/14/24 16:31 Resp 18 12/14/24 16:31 BP 136/89 12/14/24 16:31 Pulse Ox 98 12/14/24 16:31 O2 Del Method Nasal Cannula 12/14/24 16:31 O2 Flow Rate 4 12/14/24 14:10 FiO2 4 12/06/24 20:00 12/14/24 12/14/24 12/14/24 06:59 14:59 22:59 Intake Total 250 / 2570 780.000 / 780.000 250 / 1030.000 Output Total 250 / 1850 Balance 0 / 720 780.000 / 780.000 250 / 1030.000 Weight last 48 hrs Weight 82.962 kg Weight 81.238 kg Physical Exam 2 Narrative: General well-developed well-nourished male in no acute cardiopulmonary distress he is on oxy mask at 4 L/min CV regular rate and rhythm Lungs trace left basilar crackles Abdomen soft nontender Data 12/14/24 10:05 12/14/24 10:05 Micro: Microbiology 12/06/24 03:38 Fungal Smear - Final Sputum - Expectorated Sputum A&P Assessment and plan 1. Pneumonia: Patient continues on Zosyn and adding amikacin. Vancomycin discontinued. Voriconazole discontinued as white count persists and no definite tissue diagnosis. The galactomannan Aspergillus antigen was negative 12/07/2024 I placed a call to Dr. Jose Calixto at [facility] via administrative coordinator Elisa at [phone]. He is accepted by Dr. Gallego via the medicine service but there is a delay of days to get actual bed. 12/13/2024 I spoke with Jose Calixto on the phone and he is trying to help me get the patient transferred to [facility] but does not have surgery to offer. Will further discuss with Dr. Edwards and Dr. Nichelle Steward recommends bronchoscopy with CT surgeon backup as patient is at increased risk of pneumothorax. Dr. Edwards recommends CT guided biopsy of the masslike infiltrate for pathology and culture and sensitivity. 2. 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 - Continue MAC medications Voriconazole was utilized the last 4 days but white count persists and now was discontinued. Resume rifampin per Dr. Edwards at milligrams a day. Vancomycin discontinued Repeat CT. 12/12/2024 IMPRESSION: Cavitated left upper lobe lesion is approximately the same size compared to prior (up to 9.7 cm in maximum transverse dimension); there is new large focal consolidation in the superior and medial aspect of the left lower lobe as well as scattered foci of scattered consolidation, concerning for spread of fungal infection. 3. Centrilobular emphysema: Continue steroids for inflammation budesonide and Neb treatments with DuoNeb in addition to antibiotics as above. Decrease Decadron 4 mg p.o. daily for COPD exacerbation with wheezing also continue mucolytic with guaifenesin continue nebulizer 4. Mycobacterium avium complex: Continue azithromycin 500 mg daily. Rifampin was stopped due to contraindication while taking voriconazole but can be resumed now ethambutol increased to 1200 mg daily 5. Seronegative rheumatoid arthritis of both hands: Immunosuppressives are stopped 6. Chronic kidney disease, unspecified CKD stage: Stable meds resume lisinopril 20 mg twice a day. Continue bicarb at 650 mg 3 times daily. Mini panel in morning Still has metabolic acidosis despite bicarbonate. Will recheck again in the morning along with CBC Metabolic alkalosis improved and bicarb now 20 Plan: Creatinine improved to 2.0 Rheumatoid arthritis: On Actemra at home. Hold for now. Patient states he feels pretty good about having quit smoking and is going to go without immunosuppressant PDMP PDMP Reviewed: Not Reviewed Attestations 2 Medical Necessity Statement*: Patient remains hospitalized for pneumonia not responding well to antibiotics and needs transfer to tertiary care facility. Will place call Coding Level of Care Code 70297 Diagnoses Pneumonia J18.9 Pulmonary cavitary lesion J98.4 Centrilobular emphysema J43.2 COPD type: emphysema Emphysema type: centrilobular Mycobacterium avium complex A31.0 Seronegative rheumatoid arthritis of both hands M06.041; M06.042 Chronic kidney disease, unspecified CKD stage N18.9 Chronic kidney disease stage: unspecified stage Time Spent (min) 35
--- NOTE | 2024-12-14 19:00 | P.PN_ITS ---
Subjective 2 Subjective: 58 year old male with pmhx of chronic ob structive pulmonary disease, Mycobacterium avium infection, nicotine addiction, polymyalgia rheumatica and possible evolving rheumatoid arthritis on actemra here for a follow up Patient has had bilateral upper lobe infiltrates persistent for the last 3 months with use of intermittent steroids. Suspicious for MAC infection. He is currently on Augmentin for his sinusitis as well as doxycycline that was recently started. Sputum AFB cultures and MTB PCR x 3 have been positive. A/G/GM BD glucan from serum to screen for fungal and PJP pneumonia ordered and all have been ordered by ID. Patient came in with increased shortness of breath, fever and found to have an abscess with FABIENNE cavity probable aspergillus Was seen by Thoracic surgery at [facility] and diagnosed with cavitary lung disease and pneumonia/abscess in the LLL. He was recommended admission with antibiotics and patient declined treatment and ended up coming to [facility] Currently he appears uncomfortable and more hypoxic 12/13/24: CXR reviewed from 12/12 and compared to 12/05- minor improvement in the left upper lobe cavity and surrounding abscess. no fevers, less cough 12/14/2024 Growing Pseudomonas in sputum cultures pansensitive. Feels about the same. Complaining of some chest pain today. Vitals/I&O/Wt Last Vital Signs Temp 97.7 F 12/14/24 16:31 Pulse 73 12/14/24 16:31 Resp 18 12/14/24 16:31 BP 136/89 12/14/24 16:31 Pulse Ox 98 12/14/24 16:31 O2 Del Method Nasal Cannula 12/14/24 16:31 O2 Flow Rate 4 12/14/24 14:10 FiO2 4 12/06/24 20:00 12/14/24 12/14/24 12/14/24 06:59 14:59 22:59 Intake Total 250 / 2570 780.000 / 780.000 730 / 1510.000 Output Total 250 / 1850 Balance 0 / 720 780.000 / 780.000 730 / 1510.000 Weight last 48 hrs Weight 182 lb 14.4 oz Weight 179 lb 1.6 oz Physical Exam 2 Narrative: General: NAD Pulmonary: Diminished breath sounds bilaterally Cardiovascular: Tachycardic t Data 12/14/24 10:05 12/14/24 10:05 Micro: Microbiology 12/06/24 03:38 Fungal Smear - Final Sputum - Expectorated Sputum A&P Assessment and plan 1. COPD (chronic obstructive pulmonary disease): 2. Severe tobacco use disorder: Plan: # Left upper lobe cavitary pneumonia-differential includes MAC related expanding cavity versus aspergilloma Consulted Dr. Edwards and reviewed scans together. I think he would benefit from having a left upper lobectomy vs a CT guided catheter into the abscess to drain. Currently will be placed on voriconazole, vancomycin and zosyn. May discontinue voriconazole. No evidence of Aspergillus on cultures. Most likely Pseudomonas induced lung abscess in the left lower lobe. Growing cavity in the left upper lobe could be MAC with aspergilloma growing inside a complicated cavitary space. Pending [facility] transfer for almost a week now. Ongoing discussions with Dr Calixto 12/14/2024-discussed with Dr. Edwards today again. Due to his chest pain I will order chest x-ray. Plan is to touch base with emergency thoracic surgeon to reevaluate. I reviewed his chest x-ray it appears to be slightly smaller than compared to 12/05/2024. # COPD group B, gold 1/chronic bronchitis- in acutee exacerbation DuoNebs 3 times a day. # Mycobacterium avium infection he is also on atovaquone and ethambutol for his underlying MAC infection. #Immunocompromised # Rheumatoid arthritis Immunosuppressants on hold secondary to immunocompromise status and pneumonia/abscess Very complicated situation. Medical decision making level-High High MDM includes number and complexity of problems actively addressed during encounter, amount and/or complexity of data reviewed/ordered [ previous or external records, resulted lab(s)/test(s), ordered lab(s)/test(s), independent historian, independent test interpretation and other healthcare professional discussion] and described risk of complication, morbidity or mortality of management as documented This documentation was created by [employer] music education director software (known for inherent music education director error). Every effort was made to assure accuracy of music education director. Any obvious errors or omissions should be clarified with the author of the document PDMP PDMP Reviewed: Not Reviewed Attestations 2 Medical Necessity Statement*: Lung abscess Coding Level of Care Code 60319 Diagnoses COPD (chronic obstructive pulmonary disease) J44.9 Severe tobacco use disorder F17.200
--- NOTE | 2024-12-14 19:29 | XRR_ITS ---
PROCEDURE INFORMATION: Exam: XR Chest Exam date and time: 12/14/2024 8:22 PM Age: 58 years old Clinical indication: Other: Pulmonary infiltrates TECHNIQUE: Imaging protocol: Radiologic exam of the chest. Views: 1 view. COMPARISON: CT chest con [id number] 12/12/2024 9:04 PM FINDINGS: Tubes, catheters and devices: Neuro stimulatory device implanted within the right anterior chest wall. Lungs: Cavitary lesion in the left upper lung zone similar to prior CT chest of 12/12/2024. Pleural spaces: Unremarkable. No pleural effusion. No pneumothorax. Heart/Mediastinum: Unremarkable. No cardiomegaly. Bones/joints: Unremarkable. Other findings: No other definite change. XR/XR chest 1V portable [id number] IMPRESSION: 1. Cavitary lesion in the left upper lung zone similar to prior CT chest of 12/12/2024. 2. No other definite change.
[2024-12-14] MEDS: MELATONIN 3 MG TABLET 6 MG PO (23:07)
--- NOTE | 2024-12-16 10:35 | PM.TDS ---
Transfer Summary Providers Date of Admission: 12/05/24 23:29 Date of Discharge/Transfer: 12/16/24 Attending Provider at Admission: Jam Solo Attending Provider at Transfer: Dharmesh Dunne MD Primary Care Provider: Lorie Mccormack NP Transfer Plans: Anticipated date of transfer: 12/16/24. Receiving Facility: [facility] in [place]. Receiving Provider: Damon hospitalist and Jaz[facility] Pulmonology. Diagnoses at Discharge Discharge Diagnosis 1. Pseudomonas pneumonia: Details from hospital stay: Treated with Zosyn but not improving bronchoscopy or dense pulmonic infiltrate biopsy recommended by ID and pulmonary. Patient was transferred to [facility] for this higher risk procedure due to potential 2. SAMIRA (mycobacterium avium-intracellulare): Details from hospital stay: Continued on treat 3. Pulmonary cavitary lesion: Details from hospital stay: Awaiting possible and eventual left upper lobectomy 4. Centrilobular emphysema: Details from hospital stay: Severe 5. Severe tobacco use disorder: Details from hospital stay: Patient was agreeable to discontinuation of smoke Reason for Visit Reason for Visit Has Pneumonia\Dr sent to Admit Brief History: Arelis Hardin is a 58 year old gentleman with a history of chronic obstructive pulmonary disease (COPD), psoriasis, coronary artery disease (CAD), peripheral artery disease (PAD), chronic kidney disease (CKD), rheumatoid arthritis, congestive heart failure (CHF), adrenal insufficiency, type 2 diabetes mellitus (DM2), systemic lupus erythematosus (SLE), and hypertension (HTN), as well as a history of Mycobacterium avium complex (MAC) infection. 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 Presents due to worsening cough producing yellow phlegm at the request of his cardiothoracic surgeon with recommendation for admission for intravenous (IV) antibiotics for presumed superimposed secondary pneumonia. Reports fevers over the past two days (unable to get temperature below 99?F). Denies hemoptysis. Denies nausea, vomiting, or diarrhea. Denies rashes. Denies blood in urine or stools or melena. Emergency department (ED) findings included leukocytosis 20.54 and sinus tachycardia (heart rate 101). Chest X-ray showed new hazy and reticular opacities in the lung bases, with a persisting and slightly increased left upper lobe cavity lesion containing small fluid. ED vital signs: blood pressure 108/77 mmHg, heart rate 101 bpm, respiratory rate 18, temperature 98.1?F, oxygen saturation 95% on room air. He remains on MAC-directed therapy (ethambutol and atovaquone) and on actemra (tocilizumab) for rheumatoid arthritis; COPD medications were recently adjusted by pulmonology. He was recently started on chronic doxycycline. Hospital Course Hospital Course 58-year-old male admitted and treated for left upper lung pneumonia with Zosyn covering Pseudomonas from his respiratory sample. He also has a history of MAC which is being treated. The patient was empirically treated with voriconazole for possible Aspergillus but white count continues to be elevated. Patient was seen by ID Dr. Edwards today and vancomycin discontinued voriconazole discontinued due to no definite isolate and not working. Zosyn discontinued and amikacin is added. She recommends tissue diagnosis as the patient's pneumonia is worsening from CAT scan progression of pneumonic infiltrate seen on CT scan done 12/12/2024. Patient and his daughter report they are willing to expand their travel to any hospital that will accept him We were awaiting cardiothoracic surgery at [facility] but ultimately patient did not receive a bed and Dr. Jose Kwan stated that the patient would not be appropriate for left upper lobectomy at this time. Because we were not improving in regards to his white count and infiltrate and did not have a firm diagnosis patient was transferred to [facility] for pulmonary evaluation and either bronchoscopy or CT-guided biopsy with cardiothoracic surgery backup in case of pneumothorax. Physical Exam Narrative: General well-developed well-nourished male in no acute cardiopulmonary distress he is on oxy mask at 4 L/min CV regular rate and rhythm Lungs trace left basilar crackles Abdomen soft nontender TS Data Studies Completed and Pending Completed Studies During Hospitalization Category Date Time Status CT chest wo con [id number] Routine Cat Scan 12/12/24 16:54 Completed CXRP [XR chest 1V portable [id number]] Routine Exams 12/14/24 19:29 Completed XR chest 2V* [id number] Stat Exams 12/05/24 21:14 Completed Fungal Culture not HR/SK/BL Routine Lab 12/06/24 03:38 Completed Laboratory Last Values WBC 18.55 10^3/uL (3.29-11.43) H 12/14/24 10:05 RBC 3.75 10^6/uL (3.85-5.65) L 12/14/24 10:05 Hgb 11.70 g/dL (11.27-16.99) 12/14/24 10:05 Hct 36.0 % (37-53) L 12/14/24 10:05 MCV 96.0 fl (82-101) 12/14/24 10:05 MCH 31.2 pg (27-33) 12/14/24 10:05 MCHC 32.5 g/dL (30-55) 12/14/24 10:05 RDW 13.2 % (12.1-15.1) 12/14/24 10:05 Plt Count 255 10^3/cmm (157-399) 12/14/24 10:05 MPV 9.1 fL (7.4-10.4) 12/14/24 10:05 Neut % (Auto) 94.2 % 12/14/24 10:05 Lymph % (Auto) 1.3 % 12/14/24 10:05 [place] % (Auto) 3.1 % 12/14/24 10:05 Eos % (Auto) 0.0 % 12/14/24 10:05 Baso % (Auto) 0.2 % 12/14/24 10:05 Neut # (Auto) 17.47 10^3/uL (1.8-7.7) H 12/14/24 10:05 Lymph # (Auto) 0.2 10^3/uL (0.8-4.8) L 12/14/24 10:05 [place] # (Auto) 0.6 10^3/uL (0.2-0.9) 12/14/24 10:05 Eos # (Auto) 0.0 10^3/uL (0.0-0.8) 12/14/24 10:05 Baso # (Auto) 0.0 10^3/uL (0.0-0.1) 12/14/24 10:05 Nucleated RBC % (auto) 0 % 12/14/24 10:05 Nucleated RBCs # 0.0 /100WBC 12/14/24 10:05 Specimen Type Arterial 12/06/24 14: Sample Site Brachial, right 12/06/24 14:29 ABG pH 7.37 (7.35-7.45) 12/06/24 14: ABG pCO2 33.7 mmHg (35-45) L 12/06/24 14: ABG pO2 78.2 mmHg (80.0-100.0) L 12/06/24 14: ABG HCO3 19.5 mmol/L (22-26) L 12/06/24 14: ABG O2 Saturation 96.4 12/06/24 14: ABG Base Excess -4.9 mmol/L (-2.0-2.0) L 12/06/24 14: Sixto Test N/a 12/06/24 14: A-a O2 Gradient 3.7 mmHg (5-10) L 12/06/24 14: Hematocrit 42.3 % (42-52) 12/06/24 14: Hgb O2 Saturation 94.3 % (95-100) L 12/06/24 14:29 Carboxyhemoglobin 0.9 %THgb (0.4-20.1) 12/06/24 14:29 Methemoglobin 1.3 % (0.4-1.5) 12/06/24 14:29 Total Hemoglobin 13.8 g/dL (14-18) L 12/06/24 14:29 Sodium 136.0 mmol/L (131-143) 12/06/24 14:29 Potassium 4.3 mmol/L (3.5-5.0) 12/06/24 14: Glucose 98.0 mg/dL (70-115) 12/06/24 14: Ionized Calcium 1.2 mmol/L (1.1-1.4) 12/06/24 14: O2 Delivery Device Oxy mask 12/06/24 14:29 O2 Liters/Min 3.0 % 12/06/24 14: Chlorine Cells Operator ID [id number] 12/06/24 14:29 Sodium 135 mmol/L (136-145) L 12/14/24 10:05 Potassium 4.8 mmol/L (3.5-5.1) 12/14/24 10:05 Chloride 101 mmol/L (98-107) 12/14/24 10:05 Carbon Dioxide 23 mmol/L (22-29) 12/14/24 10:05 Anion Gap 15.8 (5-19) 12/14/24 10:05 BUN 33 mg/dL (6-20) H 12/14/24 10:05 Creatinine 2.0 mg/dL (0.7-1.2) H 12/14/24 10:05 GFR Calculation 34.6 mL/min (90-130) L 12/14/24 10:05 Glucose 240 mg/dL (65-115) H 12/14/24 10:05 Calculated Osmolality 295 mOsm/kg (285-295) 12/14/24 10:05 Lactic Acid 1.2 mmol/L (0.5-2.2) 12/05/24 21:57 Calcium 8.0 mg/dL (8.5-10.5) L 12/14/24 10:05 Phosphorus 2.1 mg/dL (2.5-4.5) L 12/14/24 10:05 Magnesium 1.7 mg/dL (1.7-2.3) 12/14/24 10:05 Total Bilirubin 0.2 mg/dL (0.15-1.2) 12/14/24 10:05 AST 24 U/L (0-40) 12/14/24 10:05 ALT 51 U/L (0-41) H 12/14/24 10:05 Alkaline Phosphatase 46 U/L (40-130) 12/14/24 10:05 Total Protein 5.1 g/dL (6.6-8.7) L 12/14/24 10:05 Albumin 3.4 g/dL (3.5-5.2) L 12/14/24 10:05 Globulin 1.7 g/dL (1.3-4.6) 12/14/24 10:05 Procalcitonin 0.64 ng/mL (0-0.5) H 12/05/24 21:57 Urine Color Yellow (Yellow) 12/06/24 04:13 Urine Appearance Clear (CLEAR) 12/06/24 04:13 Urine pH 5.5 (5-7) 12/06/24 04:13 Ur Specific [place] 1.010 (1.005-1.030) 12/06/24 04:13 Urine Protein Trace (Negative) A 12/06/24 04:13 Urine Glucose (UA) Negative (Normal) 12/06/24 04:13 Urine Ketones Negative (Negative) 12/06/24 04:13 Urine Blood Negative (Negative) 12/06/24 04:13 Urine Nitrate Negative (Negative) 12/06/24 04:13 Urine Bilirubin Negative (Negative) 12/06/24 04:13 Urine Urobilinogen 0.2 mg/dL (Negative) 12/06/24 04:13 Ur Leukocyte Esterase Negative (Negative) 12/06/24 04:13 Urine RBC None /hpf (0-2) 12/06/24 04:13 Urine WBC None /hpf (0-5) 12/06/24 04:13 Ur Squamous Epith Cells None /hpf (0-5) 12/06/24 04:13 Amorphous Sediment Not Reportable 12/06/24 04:13 Urine Bacteria None /hpf (NONE) 12/06/24 04:13 Urine Mucus None /hpf 12/06/24 04:13 Vancomycin Trough 18.2 ug/mL (10-15) H 12/13/24 05:10 Random Vancomycin 18.8 ug/mL (20.0-40.0) L 12/10/24 05:21 U Histop Galact Ag Qnt <0.2 ng/mL 12/06/24 04:13 Influenza A (PCR) Negative (Negative) 12/05/24 21:59 Influenza Type B (PCR) Negative (Negative) 12/05/24 21:59 A. galactomannan Ag EIA Not detected 12/07/24 12:45 A. galactomannan Ag Idx <0.50 12/07/24 12:45 RSV (PCR) Negative (Negative) 12/05/24 21:59 SARS-CoV-2 (PCR) Negative (Negative) 12/05/24 21:59 Beta-(1,3)-D-Glucan <31 pg/mL (<60) 12/05/24 21:57 B-(1,3)-D-Glucan Intrp Negative (Negative) 12/05/24 21:[address] 12/12/24 16:54 IMPRESSION: Cavitated left upper lobe lesion is approximately the same size compared to prior (up to 9.7 cm in maximum transverse dimension); there is new large focal consolidation in the superior and medial aspect of the left lower lobe as well as scattered foci of scattered consolidation, concerning for spread of fungal infection. Chest X-Ray 12/14/24 19:29 IMPRESSION: 1. Cavitary lesion in the left upper lung zone similar to prior CT chest of 12/12/2024. 2. No other definite change. Recent Clincial Data Last Vital Signs Temp 97.7 F 12/14/24 23:42 Pulse 66 12/14/24 23:42 Resp 18 12/14/24 23:42 BP 123/77 12/14/24 23:42 Pulse Ox 96 12/14/24 23:42 O2 Del Method Oxymask 12/14/24 20:55 O2 Flow Rate 4 12/14/24 20:55 FiO2 4 12/06/24 20:00 Intake & Output/Weight 12/14/24 12/15/24 12/16/24 12/17/24 06:59 06:59 06:59 06:59 Intake Total 2570 / 2570 1760.000 / 1760.000 Output Total 1850 / 1850 Balance 720 / 720 1760.000 / 1760.000 Weight 82.962 kg Vitals Last Vital Signs Temp 97.7 F 12/14/24 23:42 Pulse 66 12/14/24 23:42 Resp 18 12/14/24 23:42 BP 123/77 12/14/24 23:42 Pulse Ox 96 12/14/24 23:42 O2 Del Method Oxymask 12/14/24 20:55 O2 Flow Rate 4 12/14/24 20:55 FiO2 4 12/06/24 20:00 TS Medications Medications Discontinued Medications Acetaminophen (Acetaminophen 325 Mg Tablet) 650 mg PO Q4H PRN PRN Reason: MILD PAIN OR INCREASE TEMP Last Admin: 12/14/24 09:39 Dose: 650 mg Albuterol/Ipratropium (Ipratropium-Albuterol 3 Ml Neb) 3 ml INHALATION ONCE ONE Stop: 12/05/24 22:05 Last Admin: 12/05/24 22:31 Dose: 3 ml Albuterol/Ipratropium (Ipratropium-Albuterol 3 Ml Neb) 3 ml INHALATION Q6H.RESP [facility]IDA Last Admin: 12/14/24 19:23 Dose: 3 ml Albuterol/Ipratropium (Ipratropium-Albuterol 3 Ml Neb) 3 ml INHALATION Q6H PRN PRN Reason: SHORTNESS OF BREATH Aspirin (Aspirin 81 Mg Chew Tablet) 81 mg PO DAILY [facility] Last Admin: 12/14/24 05:36 Dose: 81 mg Atovaquone (Atovaquone 150 Mg/Ml Syringe) 750 mg PO BIDWM [facility] Last Admin: 12/14/24 08:29 Dose: 750 mg Atovaquone (Atovaquone 150 Mg/Ml Syringe) 1,500 mg PO DAILY [facility] Azithromycin (Azithromycin 250 Mg Tablet) 500 mg PO DAILY [facility]; Protocol Last Admin: 12/14/24 05:37 Dose: 500 mg Budesonide (Budesonide 0.5 Mg/2 Ml Neb) 0.5 mg INHALATION BID.RESPIRATORY [facility] Last Admin: 12/14/24 19:23 Dose: 0.5 mg Citalopram Hydrobromide (Citalopram 40 Mg Tablet) 40 mg PO DAILY [facility] Last Admin: 12/08/24 06:18 Dose: 40 mg Dexamethasone (Dexamethasone 4 Mg/Ml Inj) 4 mg IVP BID [facility] Last Admin: 12/12/24 19:32 Dose: Not Given Dexamethasone (Dexamethasone 4 Mg/Ml Inj) 4 mg PO DAILY [facility] Last Admin: 12/14/24 05:28 Dose: 4 mg Diltiazem HCl (Diltiazem 30 Mg Tablet) 30 mg PO Q6H [facility] Last Admin: 12/07/24 08:41 Dose: 30 mg Diltiazem HCl (Diltiazem 30 Mg Tablet) 60 mg PO Q6H [facility] Last Admin: 12/14/24 21:55 Dose: Not Given Ezetimibe (Ezetimibe 10 Mg Tablet) 10 mg PO DAILY [facility] Last Admin: 12/14/24 05:35 Dose: 10 mg Escitalopram Oxalate (Escitalopram 10 Mg Tablet) 10 mg PO DAILY [facility] Last Admin: 12/14/24 05:37 Dose: 10 mg Ethambutol HCl (Ethambutol 400 Mg Tablet) 1,000 mg PO QPM [facility] Last Admin: 12/07/24 15:51 Dose: 1,000 mg Ethambutol HCl (Ethambutol 400 Mg Tablet) 1,200 mg PO QPM [facility] Last Admin: 12/14/24 16:40 Dose: 1,200 mg Gabapentin (Gabapentin 400 Mg Capsule) 800 mg PO TID [facility] Gabapentin (Gabapentin 300 Mg Capsule) 300 mg PO BID [facility] Last Admin: 12/06/24 18:09 Dose: Not Given Gabapentin (Gabapentin 300 Mg Capsule) 300 mg PO BID [facility] Last Admin: 12/14/24 16:40 Dose: 300 mg Guaifenesin (Guaifenesin 600 Mg Tablet) 1,200 mg PO BID [facility] Last Admin: 12/10/24 04:33 Dose: 1,200 mg Guaifenesin (Guaifenesin 600 Mg Tablet) 600 mg PO BID [facility] Last Admin: 12/14/24 16:41 Dose: 600 mg Guaifenesin/Dextromethorphan (Guaifenesin-Dextromethorphan Udc 10 Ml) 10 ml PO Q4H PRN PRN Reason: COUGH Last Admin: 12/14/24 21:03 Dose: 10 ml Lactated Ringer's (Lactated Ringers) 1,000 mls @ 999 mls/hr IV .Q1H1M ONE Stop: 12/05/24 22:14 Last Infusion: 12/05/24 23:48 Dose: Infused Lactated Ringer's (Lactated Ringers) 1,000 mls @ 999 mls/hr IV .Q1H1M ONE Stop: 12/06/24 00:28 Last Infusion: 12/06/24 01:45 Dose: Infused Ampicillin Sodium/Sulbactam (Sodium 1.5 gm/ N/A) 0 mls @ 0 mls/hr IV Q6H [facility]; Protocol Last Admin: 12/06/24 03:42 Dose: Not Given Vancomycin HCl 1,250 mg/ (Sodium Chloride) 250 mls @ 250 mls/hr IV MASTER DYER ONE Stop: 12/05/24 23:30 Last Admin: 12/06/24 03:42 Dose: Not Given Ampicillin Sodium/Sulbactam (Sodium 1.5 gm/ Sodium Chloride) 50 mls @ 150 mls/hr IV Q12H [facility]; Protocol Last Infusion: 12/07/24 14:46 Dose: Infused Vancomycin HCl (Vancocin) 1,750 mg in 350 mls @ 175 mls/hr IV ONCE ONE Stop: 12/06/24 03:29 Last Infusion: 12/06/24 03:42 Dose: Infused Vancomycin HCl (Vancocin) 1,250 mg in 250 mls @ 166.667 mls/hr IV Q24H [facility] Last Admin: 12/10/24 01:52 Dose: Not Given Sodium Chloride (Sodium Chloride 0.9%) 1,000 mls @ 999 mls/hr IV .Q1H1M ONE Stop: 12/06/24 10:28 Last Infusion: 12/06/24 10:58 Dose: Infused Lactated Ringer's (Lactated Ringers) 1,000 mls @ 999 mls/hr IV .Q1H1M ONE Stop: 12/07/24 10:22 Last Infusion: 12/07/24 11:53 Dose: Infused Voriconazole 500 mg/ Sodium (Chloride) 250 mls @ 125 mls/hr IV Q12H [facility] Stop: 12/07/24 18:59 Last Infusion: 12/07/24 19:30 Dose: Infused Voriconazole 332 mg/ Sodium (Chloride) 100 mls @ 74 mls/hr IV Q12H [facility] Last Admin: 12/09/24 09:33 Dose: Not Given Voriconazole 500 mg/ Sodium (Chloride) 250 mls @ 125 mls/hr IV Q12H [facility] Stop: 12/08/24 08:59 Last Infusion: 12/08/24 12:00 Dose: Infused Piperacillin Sod/Tazobactam (Sod 3.375 gm/ Sodium Chloride) 50 mls @ 100 mls/hr IV MASTER DYER ONE; Protocol Stop: 12/07/24 19:16 Last Infusion: 12/07/24 21:11 Dose: Infused Piperacillin Sod/Tazobactam (Sod 3.375 gm/ Sodium Chloride) 50 mls @ 12.5 mls/hr IV Q8H [facility]; Protocol Last Admin: 12/14/24 23:07 Dose: 12.5 mls/hr Voriconazole 332 mg/ Sodium (Chloride) 100 mls @ 74 mls/hr IV Q12H [facility] Voriconazole 332 mg/ Sodium (Chloride) 250 mls @ 125 mls/hr IV Q12H [facility] Last Infusion: 12/14/24 15:52 Dose: Infused Vancomycin HCl (Vancocin) 1,250 mg in 250 mls @ 166.667 mls/hr IV Q24H [facility] Last Infusion: 12/10/24 08:53 Dose: Infused Vancomycin HCl 1,000 mg/ (Sodium Chloride) 250 mls @ 250 mls/hr IV Q24H [facility] Last Infusion: 12/14/24 09:08 Dose: Infused Lactated Ringer's (Lactated Ringers) 1,000 mls @ 500 mls/hr IV .Q2H [facility] Stop: 12/10/24 18:29 Last Infusion: 12/10/24 21:45 Dose: Infused Amikacin Sulfate 622 mg/ (Sodium Chloride) 102.488 mls @ 102 mls/hr IV Q24H [facility] Latanoprost (Latanoprost 0.005% Op Soln 2.5 Ml Btl) 1 drop EYE-BOTH QPM [facility] Last Admin: 12/14/24 16:40 Dose: 1 drop Lisinopril (Lisinopril 20 Mg Tablet) 20 mg PO BID [facility] Last Admin: 12/07/24 05:40 Dose: 20 mg Lisinopril (Lisinopril 20 Mg Tablet) 20 mg PO DAILY [facility] Last Admin: 12/10/24 04:33 Dose: 20 mg Lisinopril (Lisinopril 20 Mg Tablet) 20 mg PO BID [facility] Last Admin: 12/14/24 16:41 Dose: 20 mg Magnesium Oxide (Magnesium Oxide 400 Mg Tablet) 400 mg PO BID [facility] Last Admin: 12/14/24 16:40 Dose: 400 mg Melatonin (Melatonin 3 Mg Tablet) 6 mg PO ONCE ONE Stop: 12/13/24 00:15 Last Admin: 12/13/24 00:45 Dose: 6 mg Melatonin (Melatonin 3 Mg Tablet) 6 mg PO ONCE ONE Stop: 12/13/24 22:06 Last Admin: 12/13/24 22:41 Dose: 6 mg Melatonin (Melatonin 3 Mg Tablet) 6 mg PO BEDTIME [facility] Last Admin: 12/14/24 23:07 Dose: 6 mg Metoprolol Succinate (Metoprolol Succinate Er (24 Hr) 25 Mg Tablet) 25 mg PO DAILY [facility] Last Admin: 12/07/24 07:38 Dose: Not Given Metoprolol Succinate (Metoprolol Succinate Er (24 Hr) 50 Mg Tablet) 50 mg PO DAILY [facility] Last Admin: 12/14/24 05:37 Dose: 50 mg Nicotine (Nicotine 21 Mg Patch) 1 patch TRANSDERMA DAILY [facility] Last Admin: 12/14/24 06:34 Dose: 1 patch Non-Formulary Medication (Ramelteon) 8 mg PO BEDTIME [facility] Last Admin: 12/14/24 21:05 Dose: Not Given Ondansetron HCl (Ondansetron 2 Mg/Ml Sdv 2 Ml) 4 mg IVP Q8H PRN PRN Reason: vomiting, or N/V if npo Last Admin: 12/10/24 20:17 Dose: 4 mg Oxycodone/Acetaminophen (Oxycodone-Apap 5-325 Mg Tablet) 1 tab PO QID PRN PRN Reason: MODERATE PAIN Last Admin: 12/12/24 02:08 Dose: 1 tab Oxycodone/Acetaminophen (Oxycodone-Apap 5-325 Mg Tablet) 1.5 tab PO Q6H PRN PRN Reason: MODERATE PAIN Last Admin: 12/14/24 21:03 Dose: 1.5 tab Pantoprazole Sodium (Pantoprazole Dr 40 Mg Tablet) 40 mg PO DAILY [facility] Last Admin: 12/14/24 05:36 Dose: 40 mg Potassium Phosphate (Phosphorus 250 Mg Tablet) 250 mg PO BID [facility] Last Admin: 12/14/24 16:40 Dose: 250 mg Prasugrel (Prasugrel 10 Mg Tablet) 10 mg PO DAILY [facility] Last Admin: 12/14/24 05:36 Dose: 10 mg Rifampin (Rifampin 300 Mg Capsule) 600 mg PO QAM [facility] Last Admin: 12/07/24 05:39 Dose: 600 mg Rifampin (Rifampin 300 Mg Capsule) 600 mg PO DAILY [facility] Sodium Bicarbonate (Sodium Bicarbonate 650 Mg Tablet) 650 mg PO TID [facility] Last Admin: 12/14/24 21:04 Dose: 650 mg Vitamin D (Cholecalciferol (Vitamin D3) 1,000 Unit Tablet) 1,000 unit PO DAILY [facility] Last Admin: 12/14/24 05:36 Dose: 1,000 unit Allergies venom-wasp Allergy (Severe, Verified 12/01/24 10:57) ALGY-Hives Alpha-Gal (Ipotmyeov-[id number]-8,3-Gala Allergy (Verified 12/01/24 10:57) Unknown Home Medications glucometer testing kit #1 ea 11/13/20 [Rx Confirmed 12/06/24] cholecalciferol (vitamin D3) 25 mcg (1,000 unit) capsule (Vitamin D3) 25 mcg PO DAILY ##0 12/21/20 [History Confirmed 12/06/24] test strips #100 ea 09/11/21 [Rx Confirmed 12/06/24] cyanocobalamin (vitamin B-12) 1,000 mcg tablet (Vitamin B-12) 1,000 mcg PO DAILY 01/02/22 [History Confirmed 12/06/24] aspirin 81 mg chewable tablet 1 tab PO DAILY #90 tabs 01/03/22 [Rx Confirmed 12/06/24] ketoconazole 2 % shampoo 1 applic topical .2x weekly #120 mL 01/14/22 [Rx Confirmed 12/06/24] clobetasol 0.05 % scalp solution 1 applic topical DAILY #50 mL 04/24/22 [Rx Confirmed 12/06/24] diabetic shoes with 3 inserts #1 ea 09/19/22 [Rx Confirmed 12/06/24] lisinopril 20 mg tablet 20 mg PO BID 90 days #180 tabs 03/03/23 [Rx Confirmed 12/06/24] ezetimibe 10 mg tablet 10 mg PO DAILY #90 tabs 06/08/23 [Rx Confirmed 12/06/24] albuterol sulfate 90 mcg/actuation aerosol inhaler 2 puff inhalation Q4H PRN Shortness Of Breath 30 days #8.5 grams 01/18/24 [Rx Confirmed 12/06/24] pantoprazole 40 mg tablet,delayed release 40 mg PO DAILY #90 tabs 02/02/24 [Rx Confirmed 12/06/24] Diabetic Shoes #1 ea 02/18/24 [Rx Confirmed 12/06/24] ethambutol 400 mg tablet 1,000 mg (2.5 x 400 mg) PO QPM 90 days #225 tabs 08/10/24 [Rx Confirmed 12/06/24] rifampin 300 mg capsule 600 mg (2 x 300 mg) PO QAM 30 days #60 caps 08/10/24 [Rx Confirmed 12/06/24] apremilast 30 mg tablet (Otezla) 30 mg PO BID #60 tabs 08/15/24 [Rx Confirmed 12/06/24] prednisone 20 mg tablet 20 mg PO DAILY joint pain flare #90 tabs 09/05/24 [Rx Confirmed 12/06/24] citalopram 40 mg tablet 40 mg PO DAILY 10/27/24 [History Confirmed 12/06/24] gabapentin 800 mg tablet 800 mg PO TID 10/27/24 [History Confirmed 12/06/24] ramelteon 8 mg tablet 8 mg PO BEDTIME 10/27/24 [History Confirmed 12/06/24] ipratropium 0.5 mg-albuterol 3 mg (2.5 mg base)/3 mL nebulization soln 3 ml inhalation Q6H 30 days #90 mL 11/07/24 [Rx Confirmed 12/06/24] nicotine 21 mg/24 hr daily transdermal patch 1 patch transdermal DAILY #28 ea 11/08/24 [Rx Confirmed 12/06/24] roflumilast 250 mcg tablet (Daliresp) 250 mcg PO DAILY 4 weeks #30 tabs 11/08/24 [Rx Confirmed 12/06/24] tocilizumab 162 mg/0.9 mL subcutaneous syringe (Actemra) 162 mg (0.9 mL) SUBCUT Q7D #3.6 mL 11/10/24 [Rx Confirmed 12/06/24] atovaquone 750 mg/5 mL oral suspension 750 mg PO DAILY 11/15/24 [History Confirmed 12/06/24] budesonide 160 mcg-glycopyr 9 mcg-formot 4.8 mcg/actuation HFA inhaler (Breztri Aerosphere) 2 inh inhalation BID 11/15/24 [History Confirmed 12/06/24] hydroxychloroquine 200 mg tablet 200 mg PO BID #180 tabs 11/17/24 [Rx Confirmed 12/06/24] oxycodone-acetaminophen 7.5 mg-325 mg tablet 1 tab PO QID PRN pain 7 days #28 tabs 11/21/24 [Rx Confirmed 12/06/24] prasugrel HCl 10 mg tablet See Rx Instructions .Route .COMPLEX #90 tabs 11/28/24 [Rx Confirmed 12/06/24] cam boot, left #1 ea 11/29/24 [Rx Confirmed 12/06/24] levofloxacin 250 mg tablet 250 mg PO DAILY #5 tabs 12/01/24 [Rx Confirmed 12/06/24] cyclobenzaprine 10 mg tablet 10 mg PO TID 12/06/24 [History Confirmed 12/06/24] fluocinolone 0.01 % scalp oil and shower cap See Rx Instructions .Route .COMPLEX 12/06/24 [History Confirmed 12/06/24] latanoprost 0.005 % eye drops 1 drp ophthalmic (eye) QPM 12/06/24 [History Confirmed 12/06/24] metoprolol succinate 50 mg tablet,extended release 24 hr 50 mg PO DAILY 12/06/24 [History Confirmed 12/06/24] Discharge Plan Discharge Patient Disposition: Xfer Other Condition: Stable Prescriptions: No Action (DME) glucometer testing kit See Rx Instructions .Route .MEDSUPPLY Qty: 1 0RF Rx Instructions: glucometer testing kit, check BS TID lancets #100 strips# 100 ketoconazole 2 % shampoo 1 applic topical .2x weekly Qty: 120 6RF Rx Instructions: Lather into scalp 2-3 times weekly. Allow to sit on scalp for 5 minutes before rinsing. (DME) test strips See Rx Instructions .Route .MEDSUPPLY Qty: 100 6RF Rx Instructions: check BS TID pantoprazole 40 mg tablet,delayed release (DR/EC) 40 mg PO DAILY Qty: 90 1RF (DME) Diabetic Shoes See Rx Instructions .Route .MEDSUPPLY Qty: 1 0RF Rx Instructions: As directed by [facility] Zhang 3 x insoles ipratropium-albuterol 0.5 mg-3 mg(2.5 mg base)/3 mL solution for nebulization 3 ml inhalation Q6H 30 Days Qty: 90 5RF levofloxacin 250 mg tablet 250 mg PO DAILY Qty: 5 0RF nicotine 21 mg/24 hr patch 24 hour 1 patch transdermal DAILY Qty: 28 0RF roflumilast [Daliresp] 250 mcg tablet 250 mcg PO DAILY 28 Days Qty: 30 6RF (DME) cam boot, left See Rx Instructions .Route .MEDSUPPLY Qty: 1 0RF Rx Instructions: As directed by Bj LAI clobetasol 0.05 % solution 1 applic topical DAILY Qty: 50 3RF Rx Instructions: Apply a few drops to itchy areas on scalp as needed (DME) diabetic shoes with 3 inserts See Rx Instructions .Route .MEDSUPPLY Qty: 1 0RF Rx Instructions: As directed lisinopril 20 mg tablet 20 mg PO BID 90 Days Qty: 180 0RF ezetimibe 10 mg tablet 10 mg PO DAILY Qty: 90 1RF albuterol sulfate 90 mcg/actuation HFA aerosol inhaler 2 puff INHALATION Q4H PRN (Reason: Shortness Of Breath) 30 Days Qty: 8.5 1RF Rx Instructions: 2 inhalers rifampin 300 mg capsule 600 mg PO QAM 30 Days Qty: 60 3RF ethambutol 400 mg tablet 1,000 mg PO QPM 90 Days Qty: 225 3RF Otezla 30 mg tablet 30 mg PO BID Qty: 60 5RF prednisone 20 mg tablet 20 mg PO DAILY Qty: 90 1RF Actemra 162 mg/0.9 mL syringe 162 mg SUBCUT Q7D Qty: 3.6 5RF hydroxychloroquine 200 mg tablet 200 mg PO BID Qty: 180 1RF oxycodone-acetaminophen 7.5-325 mg tablet 1 tab PO QID PRN (Reason: pain) 7 Days Qty: 28 0RF prasugrel HCl 10 mg tablet See Rx Instructions .ROUTE .COMPLEX Qty: 90 3RF Dose Instruction: TAKE 1 TABLET BY MOUTH EVERY DAY Rx Instructions: TAKE 1 TABLET BY MOUTH EVERY DAY cholecalciferol (vitamin D3) [Vitamin D3] 25 mcg (1,000 unit) Capsule 25 mcg PO DAILY Qty: 0 cyclobenzaprine 10 mg tablet 10 mg PO TID fluocinolone and shower cap 0.01 % oil See Rx Instructions .ROUTE .COMPLEX Rx Instructions: Apply to scalp 4 times weekly. Let sit on scalp for 8 hours. latanoprost 0.005 % drops 1 drp ophthalmic (eye) QPM metoprolol succinate 50 mg tablet extended release 24 hr 50 mg PO DAILY cyanocobalamin (vitamin B-12) [Vitamin B-12] 1,000 mcg Tablet 1,000 mcg PO DAILY aspirin 81 mg tablet,chewable 1 tab PO DAILY Qty: 90 2RF citalopram 40 mg tablet 40 mg PO DAILY Rx Instructions: TAKE 1 TABLET BY MOUTH EVERY DAY gabapentin 800 mg tablet 800 mg PO TID Rx Instructions: TAKE 1 TABLET BY MOUTH 3 TIMES DAILY FOR 90 DAYS ramelteon 8 mg tablet 8 mg PO BEDTIME Rx Instructions: TAKE 1 TABLET BY MOUTH ONCE EVERY NIGHT AT BEDTIME FOR 30 DAYS atovaquone 750 mg/5 mL suspension 750 mg PO DAILY Rx Instructions: TAKE 10 ML BY MOUTH EVERY DAY WITH FOOD, PREFERABLY A HIGH FAT MEAL Tiesha Aerosphere 160-9-4.8 mcg/actuation HFA aerosol inhaler 2 inh inhalation BID Rx Instructions: USE 2 INHALATIONS BY MOUTH TWICE DAILY Referrals: Lorie Mccormack NP [Primary Care Provider, Nurse Practitioner] Patient Instructions: Opioid Safety, Patient Portal & Eddy Instructions Transfer Attestations Time Spent in Transfer Care: greater than 30 min Time Spent in Smoking Cessation: more than 10 minutes Details of Smoking Cessation Education: Patient counseled regarding his severe lung disease and need to quit smoking and he was agreeable to stop Status at Transfer: Cognitive status at transfer: cognitively intact; Behavioral status at transfer: cooperative; Quality Metrics Clinical Quality Measures [ No reported AMI, CVA or VTE this stay] Coding Level of Care Code 21478 Diagnoses Pseudomonas pneumonia J15.1 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
== END 2024-12-14 23:44 | disposition short-term general hospital (02) | DRG 177 ==
LOC: ER 23:33 → MEDSURG 23:49
PROVIDERS: Admitting Provider Internal Medicine; Emergency Provider Emergency Medicine; PCP Nurse Practitioner Family; Visit Provider Internal Medicine
DX: J15.1 Pneumonia due to Pseudomonas (principal); J85.1 Abscess of lung with pneumonia; D84.9 Immunodeficiency, unspecified; I13.0 Hypertensive heart and chronic kidney disease with heart failure and stage 1 through stage 4 chronic kidney disease, or unspecified chronic kidney disease; J44.0 Chronic obstructive pulmonary disease with (acute) lower respiratory infection; J44.1 Chronic obstructive pulmonary disease with (acute) exacerbation; E87.3 Alkalosis; B44.9 Aspergillosis, unspecified; A31.0 Pulmonary mycobacterial infection; M79.7 Fibromyalgia; R00.0 Tachycardia, unspecified; I25.10 Atherosclerotic heart disease of native coronary artery without angina pectoris; J98.4 Other disorders of lung; G47.00 Insomnia, unspecified; J43.2 Centrilobular emphysema; N18.30 Chronic kidney disease, stage 3 unspecified; M35.3 Polymyalgia rheumatica; Z75.1 Person awaiting admission to adequate facility elsewhere; F17.210 Nicotine dependence, cigarettes, uncomplicated; E11.51 Type 2 diabetes mellitus with diabetic peripheral angiopathy without gangrene; M06.042 Rheumatoid arthritis without rheumatoid factor, left hand; M06.041 Rheumatoid arthritis without rheumatoid factor, right hand; K21.9 Gastro-esophageal reflux disease without esophagitis; K44.9 Diaphragmatic hernia without obstruction or gangrene; E11.22 Type 2 diabetes mellitus with diabetic chronic kidney disease; Z79.899 Other long term (current) drug therapy; Z79.82 Long term (current) use of aspirin; Z88.8 Allergy status to other drugs, medicaments and biological substances; Z91.030 Bee allergy status; Z95.820 Peripheral vascular angioplasty status with implants and grafts; Z86.0100 Personal history of colon polyps, unspecified; Z90.49 Acquired absence of other specified parts of digestive tract; Z79.52 Long term (current) use of systemic steroids; Z71.6 Tobacco abuse counseling
CPT/HCPCS: 36415; 36600; 71045; 71046; 71250; 80048; 80051; 80053; 80202; 81001; 82330; 82805; 83605; 83735; 84100; 84145; 85025; 86403; 87040; 87070; 87077; 87102; 87186; 87205; 87206; 87305; 87385; 87449; 87637; 93005; 94640; 96365; 99285; J0295; J1100; J2405; J2543; J3372; J3373; J3465; J7030; J7050; J7120; J7626; J9999; Q0144

== ENCOUNTER 2024-12-23 12:40 | Outpatient (CLI) | payer MEDICARE, MEDICAID, SELFPAY ==
[2024-12-23 13:36] LABS: Hematocrit 30.4 % (37-53); Hemoglobin 9.90 g/dL (11.27-16.99); Mean Corpuscular HGB Conc 32.6 g/dL (30-55); Mean Corpuscular Hemoglobin 31.7 pg (27-33); Mean Corpuscular Volume 97.4 fl (82-101); Nucleated Red Blood Cells % 0 %; Platelet Count 371 10^3/cmm (157-399); Red Blood Count 3.12 10^6/uL (3.85-5.65); White Blood Count 20.14 10^3/uL (3.29-11.43)
[2024-12-23 14:43] LABS: Alanine Aminotransferase 16 U/L (0-41); Albumin Level 3.1 g/dL (3.5-5.2); Alkaline Phosphatase 79 U/L (40-130); Anion Gap 16.6 (5-19); Aspartate Amino Transferase 15 U/L (0-40); Blood Urea Nitrogen 40 mg/dL (6-20); Calcium 8.6 mg/dL (8.5-10.5); Carbon Dioxide 21 mmol/L (22-29); Chloride 102 mmol/L (98-107); Globulin 2.5 g/dL (1.3-4.6); Glucose 110 mg/dL (65-115); Osmolality Calculated 290 mOsm/kg (285-295); Potassium 4.6 mmol/L (3.5-5.1); Sodium 135 mmol/L (136-145); Total Protein 5.6 g/dL (6.6-8.7)
== END 2024-12-23 12:41 | disposition home or self-care (01) ==
LOC: LAB 12:42
PROVIDERS: Internal Medicine Medical Oncology; PCP Nurse Practitioner Family; Visit Provider Nurse Practitioner Family
DX: M79.7 Fibromyalgia (principal); J18.9 Pneumonia, unspecified organism
CPT/HCPCS: 80053; 85025; 86140

== ENCOUNTER 2025-01-09 10:28 | Outpatient (CLI) | payer MEDICARE, MEDICAID, SELFPAY ==
[2025-01-09 11:13] LABS: Hematocrit 28.5 % (37-53); Hemoglobin 9.00 g/dL (11.27-16.99); Mean Corpuscular HGB Conc 31.6 g/dL (30-55); Mean Corpuscular Hemoglobin 31.6 pg (27-33); Mean Corpuscular Volume 100.0 fl (82-101); Nucleated Red Blood Cells % 0 %; Platelet Count 561 10^3/cmm (157-399); Red Blood Count 2.85 10^6/uL (3.85-5.65); White Blood Count 13.03 10^3/uL (3.29-11.43)
[2025-01-09 11:27] LABS: Alanine Aminotransferase 13 U/L (0-41); Albumin Level 3.2 g/dL (3.5-5.2); Alkaline Phosphatase 63 U/L (40-130); Anion Gap 18.7 (5-19); Aspartate Amino Transferase 13 U/L (0-40); Blood Urea Nitrogen 29 mg/dL (6-20); Calcium 8.3 mg/dL (8.5-10.5); Carbon Dioxide 16 mmol/L (22-29); Chloride 102 mmol/L (98-107); Globulin 2.6 g/dL (1.3-4.6); Glucose 176 mg/dL (65-115); Osmolality Calculated 284 mOsm/kg (285-295); Potassium 4.7 mmol/L (3.5-5.1); Sodium 132 mmol/L (136-145); Total Protein 5.8 g/dL (6.6-8.7)
== END 2025-01-09 10:29 | disposition home or self-care (01) ==
PROVIDERS: PCP Nurse Practitioner Family; Visit Provider Nurse Practitioner Family
DX: J18.9 Pneumonia, unspecified organism (principal); J15.1 Pneumonia due to Pseudomonas; J98.4 Other disorders of lung; J44.89 Other specified chronic obstructive pulmonary disease; A31.8 Other mycobacterial infections; D84.9 Immunodeficiency, unspecified; Z87.891 Personal history of nicotine dependence
CPT/HCPCS: 80053; 85025; 86140; 99214; Q3014

== ENCOUNTER → 2025-01-19 15:05 | Outpatient (BNVA) | payer MEDICARE, MEDICAID, SELFPAY | PROVIDERS: PCP Nurse Practitioner Family; Visit Provider Internal Medicine Cardiovascular Disease | DX: R07.9 Chest pain, unspecified (principal); I25.10 Atherosclerotic heart disease of native coronary artery without angina pectoris; I10 Essential (primary) hypertension; I77.9 Disorder of arteries and arterioles, unspecified; E78.5 Hyperlipidemia, unspecified; I65.02 Occlusion and stenosis of left vertebral artery; Z95.5 Presence of coronary angioplasty implant and graft; Z87.891 Personal history of nicotine dependence | CPT/HCPCS: 93005; 99215 ==

== ENCOUNTER 2025-02-01 09:00 | Oncology outpatient (recurring) (ONCR) | payer MEDICARE, MEDICAID, SELFPAY ==
[2025-01-23 13:15] LABS: Hematocrit 33.0 % (37-53); Hemoglobin 10.50 g/dL (11.27-16.99); Mean Corpuscular HGB Conc 31.8 g/dL (30-55); Mean Corpuscular Hemoglobin 31.2 pg (27-33); Mean Corpuscular Volume 97.9 fl (82-101); Nucleated Red Blood Cells % 0 %; Platelet Count 335 10^3/cmm (157-399); Red Blood Count 3.37 10^6/uL (3.85-5.65); White Blood Count 14.64 10^3/uL (3.29-11.43)
[2025-01-23 13:26] LABS: Alanine Aminotransferase 9 U/L (0-41); Albumin Level 3.7 g/dL (3.5-5.2); Alkaline Phosphatase 69 U/L (40-130); Anion Gap 18.3 (5-19); Aspartate Amino Transferase 11 U/L (0-40); Blood Urea Nitrogen 31 mg/dL (6-20); Calcium 8.3 mg/dL (8.5-10.5); Carbon Dioxide 21 mmol/L (22-29); Chloride 104 mmol/L (98-107); Ferritin 253 ng/mL (30-400); Globulin 3.0 g/dL (1.3-4.6); Glucose 189 mg/dL (65-115); Iron 56 ug/dL (59-158); Osmolality Calculated 298 mOsm/kg (285-295); Potassium 5.3 mmol/L (3.5-5.1); Sodium 138 mmol/L (136-145); Total Iron Binding Capacity 192 mcg/dl; Total Protein 6.7 g/dL (6.6-8.7); Unsaturated Iron Binding 136 ug/dL (112-347)
[2025-01-23 13:42] LABS: Vitamin B12 661 pg/mL (232-1245)
[2025-01-23 18:50] LABS: Thyroid Stimulating Hormone 1.28 uIU/mL (0.27-4.20)
[2025-02-01 09:13] VITALS: BMI 24.4
--- NOTE | 2025-02-01 09:19 | ECG_ITS ---
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 NOTE: Please note that this is the electrocardiogram portion of the Lexiscan/Sestamibi stress test. The perfusion scan will be documented separately. DATA: Baseline heart rate was 94 beats per minute. Baseline blood pressure was 157/91 millimeters of mercury. Target heart rate was 162. Maximum heart rate achieved was 127. which was 78 % of the predicted target heart rate. Maximum blood pressure was 167/102 millimeters of mercury. The reason for ending the test was completion of the protocol. The patient did not experience any symptoms. ELECTROCARDIOGRAM: BASELINE: Sinus rhythm. Normal axis. Otherwise, no ST-T changes suggestive of ischemia noted. No arrhythmia noted. EXERCISE: After Lexiscan injection, no ST-T changes suggestive of ischemic noted. No arrhythmia noted. CONCLUSION: Please note due to baseline abnormality of the EKG specificity and sensitivity of the EKG portion of LexiScan MIBI stress test will be low 1. EKG not suggestive of ischemia 2. Lexiscan injection unremarkable. 3. Perfusion scan will be documented separately. Electronically Signed On 02-16-2025 18:39:32 BATON TEACHER by SOREN RAUSCH [email or web address]
--- NOTE | 2025-02-01 09:19 | NMCV_ITS ---
NM delmy perf SPECT r/s* [id number] Arelis Hardin Age: 59 Gender: M : 1965 Exam Date: 02/01/2025 09:45 Ordering Phys: Sarah Kay MD ([email or web address]) Technologist: JOSE Prajapati Exam Location: [facility] Indications: cp STRESS TEST [facility] IMAGE PROTOCOL Rest/Stress 1 Lexiscan Day Radiopharmaceutical Dose (mCi) Administration Site Administered by Rest: Tc-99m 10.8 IV JOSE Prajapati Sestamibi Stress:Tc-99m 32.7 IV Francie Castillo, [employer] Sestamibi Rest: 01-Feb-2025 60 Discovery 630 Stress: 01-Feb-2025 30 Discovery 630 0.4mg Lexiscan. Images obtained in supine and prone position. SPECT RESULTS Technical Quality: Good Raw Data Analysis: Normal Image Corrections: No attenuation or motion correction applied Summed Stress Score: 0 Summed Rest Score: 6 Summed Difference Score: 0 PERFUSION FINDINGS SPECT images demonstrate homogeneous tracer distribution throughout the myocardium. FUNCTIONAL RESULTS (calculated via Gated SPECT) Stress Image LV EF (%): 75 Stress EDV (mL):92 TID: 1.04 Stress ESV (mL):23 FUNCTIONAL FINDINGS: There is normal left ventricular systolic function. IMPRESSIONS Myocardial perfusion imaging is normal. Alice Smiental MD (Electronically Signed) Final Date: 01 February 2025 12:48 S
[2025-02-01] MEDS: aminophylline 25 mg/mL SDV 20 mL IVP (10:28)
[2025-02-01 10:31] VITALS: BP 148/89; PULSE 97
== END 2025-02-15 23:59 | disposition home or self-care (01) ==
LOC: ONCMED 11:25
PROVIDERS: Nurse Practitioner Family; PCP Nurse Practitioner Family; Visit Provider Internal Medicine Medical Oncology
DX: Z53.9 Procedure and treatment not carried out, unspecified reason; R07.9 Chest pain, unspecified; I25.10 Atherosclerotic heart disease of native coronary artery without angina pectoris
CPT/HCPCS: 36415; 78452; 80053; 82607; 82728; 82746; 83540; 83550; 84443; 85025; 93017; 96374; 96375; 99213; A9500; J0280; J2785

== ENCOUNTER → 2025-02-02 14:08 | Outpatient (BNVA) | payer MEDICARE, MEDICAID, SELFPAY | PROVIDERS: PCP Nurse Practitioner Family; Visit Provider Podiatrist Foot & Ankle Surgery | DX: E11.42 Type 2 diabetes mellitus with diabetic polyneuropathy (principal); B35.1 Tinea unguium; E11.8 Type 2 diabetes mellitus with unspecified complications; I73.9 Peripheral vascular disease, unspecified; G62.9 Polyneuropathy, unspecified; M76.822 Posterior tibial tendinitis, left leg | CPT/HCPCS: 11721 ==

== ENCOUNTER → 2025-02-07 10:26 | Outpatient (BNVA) | payer MEDICARE, MEDICAID, SELFPAY | PROVIDERS: PCP Nurse Practitioner Family; Visit Provider Internal Medicine Rheumatology | DX: R76.89 Other specified abnormal immunological findings in serum (principal); Z71.85 Encounter for immunization safety counseling; Z79.899 Other long term (current) drug therapy; A31.0 Pulmonary mycobacterial infection; M06.041 Rheumatoid arthritis without rheumatoid factor, right hand; M06.042 Rheumatoid arthritis without rheumatoid factor, left hand; L40.0 Psoriasis vulgaris | CPT/HCPCS: 99214 ==